=== PATIENT | male | born 1935 | race Two or more races ===

== ENCOUNTER 2019-01-23 13:45 | Inpatient (IN) | payer MEDICARE, MEDICAID ==
[~2019-01-23] VITALS: Ht 160 cm; Wt 56.7 kg
[~2019-01-23 13:45] MED LIST: ACETAMINOPHEN325 M1 GT; ALBUTEROL SULFAT2 MG PO; ASCORBIC ACID500 MG GT; BACLOFEN10 MG GT; BISACODYL5 MG GT; CHOLECALCIFEROL1 G1 GT; DOCUSATE SODIU250 MG GT; DOCUSATE SODIU250 MG ORAL; FERROUS SU220 MG/53 GT; GUAIFENESIN-CO118 M1 ORAL; HUMULIN R100 UNIT/1 SUBQ; HYDROGEL3000 GM MC; IPRATROPIU0.2 MG/1 M HHN; LIDODERM700 M1 TOPIC; MINERAL OIL EN133 ML RC; MULTIVITAMINS1 EAC8 ORAL; NORCO 5-325 TA1 EACH GT; SENNA8.6 M2 GT
[2019-01-23 13:52] VITALS: BP 121/54
--- NOTE | 2019-01-23 13:52 | NUR ---
ED Nurse Note: PT SUSY RA [id number] [facility] DUE TO HYPOTENSION AND ALOC. PER EMS, THE FACILITY WERE ABOUT TO CHANGE THE STOMA, 8MG DILAUDID AND 8MG METHADONE WERE GIVEN. BP WENT DOWN TO 70/40 AND O2 SAT DECREASED TO 85 % AFTER MEDS. PT IS AWAKE BUT NON VERBAL AND UNRESPONSIVE, TRACH DEPENDENT. DR CHERY AND RT AT THE BED SIDE. VSS.
--- NOTE | 2019-01-23 13:56 | Emergency Room Report ---
History of Present Illness General Chief Complaint: Altered Level of Consciousness Source: Patient Present Illness HPI EMS was summoned for altered level of consciousness and hypotension. 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 He was hypotensive and they gave him a bolus of normal saline. His blood pressure came up but he still remained less responsive. An Accu-Chek was normal. Patient is vent dependent via tracheostomy and has a gastrostomy tube. The patient was hospitalized here in November. His discharge diagnoses: Severe sepsis with acute organ dysfunction ( due to pneumonia and UTI) Proteus bacteremia likely due to UTI Acute respiratory failure with hypoxemia NSTEMI initial episode of care - likely due to demand ischemia secondary to sepsis Chronic respiratory failure with tracheostomy status Healthcare associated pneumonia Proteus UTI Dehydration Severe anemia Acute tubular necrosis Functional quadriplegia Dysphagia , feeding by G-tube Severe protein calorie malnutrition Multiple decubitus ulcers, present on admission Allergies: Coded Allergies: NSAIDS (NON-STEROIDAL ANTI-INFLAMMA (Unverified Allergy, Unknown, 11/27/18) PIPERACILLIN (Unverified Allergy, Unknown, 11/27/18) TAZOBACTAM (Unverified Allergy, Unknown, 11/27/18) Uncoded Allergies: NSAID (Allergy, Unknown, 09/14/18) Patient History Limited by: medical condition Past Medical History: see triage record, old chart reviewed Past Surgical History: other - Tracheostomy and G-tube Social History Narrative SNF Reviewed Nursing Documentation: PMH: Agreed; PSxH: Agreed Nursing Documentation-PM Past Medical History: No History, Except For Hx Cardiac Problems: Yes - Hypoxia Hx Cancer: No Hx Fatigue: Yes Review of Systems All Other Systems: limited Physical Exam Vital Signs Date Time Temp Pulse Resp B/P (MAP) Pulse Ox O2 Delivery O2 Flow Rate FiO2 01/23/19 13:42 98.8 73 19 70/45 (53) 95 Ambu-Bag Sp02 EP Interpretation: reviewed, abnormal - interpreted as low by me General Appearance: other - unresponsive, Chronically Ill Head: normocephalic, atraumatic Eyes: bilateral eye other - dry, eyes closed ENT: dry mucus membranes Neck: tracheotomy Respiratory: lungs clear, normal breath sounds, decreased breath sounds Cardiovascular #1: regular rate, rhythm Cardiovascular #2: 2+ radial (R) Gastrointestinal: other - g tube, decreased bowel sounds, scaphoid Genitourinary: other - diaper Musculoskeletal: other - contractures, atrophy Neurologic: other - unresponsive to pain Psychiatric: other - unresponsive Skin: Decubitus/Ulcer - all dependent areas Medical Decision Making Diagnostic Impression: Primary Impression: Sepsis Qualified Codes: A41.9 - Sepsis, unspecified organism Additional Impressions: Pyuria Pleural effusion, left Left pulmonary infiltrate on CXR ER Course Patient presents with altered level of consciousness and hypotension after receiving Dilaudid. Differential includes narcotic overdose, sepsis, acute myocardial infarction, or light imbalance amongst others. Evaluation will be with EKG, chest x-ray and labs including blood cultures and lactate. The patient will receive fluid bolus and may require antibiotics. If he continues to be hypotensive we may need to start pressors. Before that consideration of Narcan. EKG NSR, no injury. BP better with fluid bolus. Patient dry. Still unresponsive. Awaiting labs and results for consideration for antibiotics. Sat 100% on 30%. 14:06 WBC elevated. Some pyuria. Based on previous cultures - resistant P. mirabilis starting on gent and vanco. Blood pressure improved. 14:[address] Carlos Butterfield - non-transferrable. 14:25 Admit to stepdown unit . Laboratory Tests Test 01/23/19 13:50 White Blood Count 23.0 K/UL (4.8-10.8) *H Red Blood Count 3.12 M/UL (4.70-6.10) L Hemoglobin 8.7 G/DL (14.2-18.0) L Hematocrit 28.6 % (42.0-52.0) L Mean Corpuscular Volume 92 FL (80-99) Mean Corpuscular Hemoglobin 28.0 PG (27.0-31.0) Mean Corpuscular Hemoglobin Concent 30.5 G/DL (32.0-36.0) L Red Cell Distribution Width 17.9 % (11.6-14.8) H Platelet Count 227 K/UL (150-450) Mean Platelet Volume 6.6 FL (6.5-10.1) Neutrophils (%) (Auto) % (45.0-75.0) Lymphocytes (%) (Auto) % (20.0-45.0) Monocytes (%) (Auto) % (1.0-10.0) Eosinophils (%) (Auto) % (0.0-3.0) Basophils (%) (Auto) % (0.0-2.0) Differential Total Cells Counted 100 Neutrophils % (Manual) 91 % (45-75) H Lymphocytes % (Manual) 2 % (20-45) L Monocytes % (Manual) 3 % (1-10) Eosinophils % (Manual) 0 % (0-3) Basophils % (Manual) 1 % (0-2) Band Neutrophils 3 % (0-8) Platelet Estimate Adequate Platelet Morphology Clumped Platelets Occasional Hypochromasia 1+ Anisocytosis 1+ Prothrombin Time 11.7 SEC (9.30-11.50) H Prothrombin Time INR 1.1 (0.9-1.1) PTT 32 SEC (23-33) Urine Color Pale yellow Urine Appearance Slightly cloudy Urine pH 7 (4.5-8.0) Urine Specific [place] 1.005 (1.005-1.035) Urine Protein 3+ (NEGATIVE) H Urine Glucose (UA) Negative (NEGATIVE) Urine Ketones Negative (NEGATIVE) Urine Blood 3+ (NEGATIVE) H Urine Nitrite Negative (NEGATIVE) Urine Bilirubin Negative (NEGATIVE) Urine Urobilinogen Normal MG/DL (0.0-1.0) Urine Leukocyte Esterase 3+ (NEGATIVE) H Urine RBC 2-4 /HPF (0 - 0) H Urine WBC 5-10 /HPF (0 - 0) H Urine Squamous Epithelial Cells Occasional /LPF Urine Bacteria Moderate /HPF (NONE) H Urine Yeast Few /HPF (NONE) H Sodium Level 137 MMOL/L (136-145) Potassium Level 4.5 MMOL/L (3.5-5.1) Chloride Level 100 MMOL/L (98-107) Carbon Dioxide Level 34 MMOL/L (21-32) H Anion Gap 3 mmol/L (5-15) L Blood Urea Nitrogen 60 mg/dL (7-18) H Creatinine 1.1 MG/DL (0.55-1.30) Estimate Glomerular Filtration Rate mL/min (>60) Glucose Level 124 MG/DL (74-106) H Lactic Acid Level 1.80 mmol/L (0.4-2.0) Calcium Level 8.8 MG/DL (8.5-10.1) Magnesium Level 2.1 MG/DL (1.8-2.4) Total Bilirubin 0.3 MG/DL (0.2-1.0) Aspartate Amino Transferase (AST) 19 U/L (15-37) Alanine Aminotransferase (ALT) 16 U/L (12-78) Alkaline Phosphatase 95 U/L (46-116) Total Creatine Kinase 32 U/L (26-308) Troponin I 0.029 ng/mL (0.000-0.056) Pro-B-Type Natriuretic Peptide 3183 pg/mL (0-125) H Total Protein 7.9 G/DL (6.4-8.2) Albumin 1.9 G/DL (3.4-5.0) L Globulin 6.0 g/dL Albumin/Globulin Ratio 0.3 (1.0-2.7) L Lipase 109 U/L (73-393) EKG Diagnostic Results Rate: normal Rhythm: NSR ST Segments: no acute changes - Nonspecific ST-T wave changes Rhythm Strip Diag. Results EP Interpretation: yes Rhythm: NSR, no PVC's, no ectopy Chest X-Ray Diagnostic Results Chest X-Ray Diagnostic Results : Chest X-Ray Ordered: Yes # of Views/Limited/Complete: 1 View Indication: Other EP Interpretation: Yes Interpretation: no pneumothorax, other - L infiltrate and effusion - prior x -ray with bilat effusions Impression: Other Electronically Signed by: Electronically signed by Dimitrios Avila MD Last Vital Signs Date Time Temp Pulse Resp B/P (MAP) Pulse Ox O2 Delivery O2 Flow Rate FiO2 01/24/19 00:42 62 17 30 01/24/19 00:00 Mechanical Ventilator 01/24/19 00:00 97.9 139/69 (92) 99 01/23/19 17:47 15.0 Status: improved Disposition: ADMITTED INPATIENT Condition: Critical Dimitrios Avila MD Jan 23, 2019 13:56
--- NOTE | 2019-01-23 14:05 | NUR ---
ED Nurse Note: COLLECTED BLOOD/URINE THEN SENT.
[2019-01-23 14:06] LABS: APPEARANCE,URINE SLIGHTLY CLOUDY; BILIRUBIN, URINE NEGATIVE (NEGATIVE); COLOR,URINE PALE YELLOW; GLUCOSE, URINE (UA) NEGATIVE (NEGATIVE); HEMATOCRIT 28.6 % (42.0-52.0); HEMOGLOBIN 8.7 G/DL (14.2-18.0); KETONES,URINE NEGATIVE (NEGATIVE); LEUKOCYTE ESTERASE ,URINE 3+ (NEGATIVE); MEAN CORPUSCULAR VOLUME 92 FL (80-99); NITRITE,URINE NEGATIVE (NEGATIVE); PH,URINE 7 (4.5-8.0); PLATELET COUNT 227 K/UL (150-450); PROTEIN,URINE 3+ (NEGATIVE); RED BLOOD COUNT 3.12 M/UL (4.70-6.10); RED CELL DISTRIBUTION WIDTH 17.9 % (11.6-14.8); UROBILINOGEN,URINE NORMAL MG/DL (0.0-1.0)
[2019-01-23 14:13] LABS: INR 1.1 (0.9-1.1)
[2019-01-23 14:15] LABS: ANION GAP 3 mmol/L (5-15); BLOOD UREA NITROGEN 60 mg/dL (7-18); CALCIUM 8.8 MG/DL (8.5-10.1); CARBON DIOXIDE 34 MMOL/L (21-32); CHLORIDE 100 MMOL/L (98-107); CREATININE 1.1 MG/DL (0.55-1.30); POTASSIUM 4.5 MMOL/L (3.5-5.1); SODIUM 137 MMOL/L (136-145)
[2019-01-23] MEDS ORDERED: AMIKACIN IV STA (14:16)
[2019-01-23] MEDS ORDERED: NS IV STA (14:16)
[2019-01-23] MEDS ORDERED: Amikacin 900 MG in NS 110 ML IV STA (14:20)
--- NOTE | 2019-01-23 14:23 | NUR ---
ED Nurse Note: NOTED WOUNDS ON RIGHT AND LEFT BUTTOCKS, RIGHT AND LEFT FOOT. PICTURES ARE UPLOADED.
[2019-01-23 14:28] LABS: ALANINE AMINOTRANSFERASE 16 U/L (12-78); ALBUMIN 1.9 G/DL (3.4-5.0); ALBUMIN/GLOBULIN RATIO 0.3 (1.0-2.7); ALKALINE PHOSPHATASE 95 U/L (46-116); ASPARTATE AMINO TRANSFERASE 19 U/L (15-37); BILIRUBIN,TOTAL 0.3 MG/DL (0.2-1.0); CREATINE KINASE 32 U/L (26-308)
[2019-01-23] MEDS ORDERED: Vancomycin 1 GM in NS 275 ML IVPB ONE (14:30)
--- NOTE | 2019-01-23 15:32 | NUR ---
HAND-OFF: Report given to SRIKANTH MURILLO RN.
--- NOTE | 2019-01-23 15:45 | NUR ---
ED Nurse Note: Gave report to TEDDY Jarquin
--- NOTE | 2019-01-23 16:00 | NUR ---
TRANSFER TO FLOOR: Patient transferred to [facility] as ordered, per . Report given to TEDDY Jarquin
[2019-01-23] MEDS ORDERED: Morphine Sulfate 4mg/ml Inj (IV USE ONLY) IVP PRN (16:15)
[2019-01-23] MEDS ORDERED: Miralax 17gm pkt ORAL PRN (16:15)
[2019-01-23] MEDS ORDERED: LORazepam Inj 2mg/ml 1ml IV PRN (16:15)
[2019-01-23] MEDS ORDERED: Albuterol/Ipratropium 3ml neb HHN PRN (16:15)
--- NOTE | 2019-01-23 16:30 | NUR ---
NURSE NOTES: Received pt ,a new admission from ED,brought to SDU per jody ,lethargic ,in no acute resp distress,with trachc tube to vent settings,AC14,TV 450,Fio2 40%Peep 5,,GT clamped,with Cunha cath draining yellow urine,IV sites x2 LFA and RW ,skin warm and very dry,with multiple pressure ulcers and open wounds ,photos taken,measured, and uploaded .Report given by Nabil YEH RN.Pt's at bedside.
[2019-01-23 17:00] VITALS: BP 142/60
--- NOTE | 2019-01-23 19:20 | NUR ---
HAND-OFF: Report given to Shara Edwards RN.
--- NOTE | 2019-01-23 19:20 | NUR ---
NURSE NOTES: Received patient from MARIAN WEBBER RN. Will continue plan of care.
--- NOTE | 2019-01-23 19:22 | NUR ---
RESPIRATORY NOTE: PT. RECEIVED STABLE ON ER VENT SETTINGS OF AC/VC: 14, 450, 30%, +5. PT PLACED ON NEW VENT SETTINGS ORDERED BY DR. JEREZ. CURRENT SETTINGS ARE AC/VC: 16, 600, 30%, +5. ALARMS ARE ON AND AUDIBLE. PT TOLERATING NEW VENT SETTINGS WELL. NO S/S OF RESPIRATORY DISTRESS NOTED AT THIS TIME. EXTERNAL ALARM CABLE IN PLACE AND OERATIONAL. WILL CONTINUE TO MONITOR PT.
[2019-01-23 20:00] VITALS: BP 138/77
[2019-01-23] MEDS: Heparin 5000 units/ml inj SUBQ SCH (20:43)
[2019-01-24] VITALS (8 sets, daily range): BP systolic 124–163; BP diastolic 58–82
[2019-01-24] MEDS: Vancomycin 750mg/NS 275ml IVPB SCH ×4 (01:00→16:14)
[2019-01-24 04:54] LABS: HEMOGLOBIN 7.2 G/DL (14.2-18.0); MEAN CORPUSCULAR VOLUME 91 FL (80-99); PLATELET COUNT 124 K/UL (150-450); RED BLOOD COUNT 2.52 M/UL (4.70-6.10); RED CELL DISTRIBUTION WIDTH 17.7 % (11.6-14.8)
[2019-01-24 04:58] LABS: ALBUMIN 1.6 G/DL (3.4-5.0); ANION GAP 5 mmol/L (5-15); BLOOD UREA NITROGEN 44 mg/dL (7-18); CALCIUM 8.5 MG/DL (8.5-10.1); CARBON DIOXIDE 27 MMOL/L (21-32); CHLORIDE 104 MMOL/L (98-107); CREATININE 0.8 MG/DL (0.55-1.30); PHOSPHORUS 2.5 MG/DL (2.5-4.9); POTASSIUM 4.1 MMOL/L (3.5-5.1); SODIUM 136 MMOL/L (136-145)
--- NOTE | 2019-01-24 05:19 | NUR ---
RESPIRATORY NOTE: PT REMAINED STABLE ON CMV WITH CURRENT SETTINGS. PT WAS SXN'D PRN WITH NO ADVERSE REACTION. AIRWAY IS MIDLINE, SECURE AND PATENT. VENT CIRCUIT AND SX TUBING ARE SECURE AND OUT OF THE WAY. NO S/S OF RESPIRATORY DISTRESS NOTED AT THIS TIME.
--- NOTE | 2019-01-24 07:15 | NUR ---
HAND-OFF: Report given to Chyna Talavera RN.
--- NOTE | 2019-01-24 07:20 | NUR ---
NURSE NOTES: Report received from Daniel Smith RN.Pt asleep noted no resp distress,with trach tube to vent,new settings noted,AC 14,TV 600,Fio2 30%,Peep 5,GTF Jevity 1.2 at 30 ml/hr,no residual noted,Cunha cath draining yellow urine,IV sites x2 RW HL and LFA with IVF NS at 300 ml/hr ,skin warm and very dry,,with multilple pressure ulcers and open wounds to LE and posterior back.SR up x2 HOB elevated,bed lock in lowest position will continue with plans of care.
[2019-01-24] MEDS: Pantoprazole Inj IV SCH (08:57)
[2019-01-24] MEDS: Heparin 5000 units/ml inj SUBQ SCH ×2 (08:59→21:00)
--- NOTE | 2019-01-24 10:00 | NUR ---
NURSE NOTES: Seen by wound care nurse Rebecapt with mutiple pressure sores and open wounds,measured and drsg changed.
--- NOTE | 2019-01-24 11:00 | NUR ---
NURSE NOTES: Dr Woodall at bedside,informed re H/H 7.08/28,1 unit of PRBC ordered.
--- NOTE | 2019-01-24 11:07 | Pulmonolgy Critical Care Note ---
Critical Care - Asmt/Plan Problems: (1) Acute on chronic respiratory failure (2) Left pulmonary infiltrate on CXR (3) Severe anemia (4) Pleural effusion, left (5) At high risk for aspiration (6) funtional quadriplegia (7) Feeding by G-tube (8) Protein-calorie malnutrition, severe Respiratory: monitor respiratory rate, adjust FIO2, CXR Cardiac: continue pressors, continue to monitor HR/BP Renal: F/U I&O, keep IV fluid, check electrolytes Infectious Disease: check cultures, continue antibiotics Gastrointestinal: continue feedings/current rate Endocrine: monitor blood sugar Hematologic: transfuse if hgb<8.5 Neurologic: PRN Ativan, PRN Morphine, keep patient comfortable Time Spent (Minutes): 40 Notes Reviewed: cardio Discussed with: nurses, consultants, pillowcase makerapplications project manager - Objective Last 24 Hour Vital Signs Date Time Temp Pulse Resp B/P (MAP) Pulse Ox O2 Delivery O2 Flow Rate FiO2 01/24/19 10:47 58 18 30 01/24/19 09:28 65 17 30 01/24/19 08:01 98.2 55 20 142/61 (88) 98 01/24/19 08:00 54 01/24/19 08:00 30 01/24/19 08:00 Mechanical Ventilator 01/24/19 07:07 53 16 30 01/24/19 05:19 62 17 30 01/24/19 04:00 Mechanical Ventilator 01/24/19 04:00 97.9 61 18 139/74 (95) 100 01/24/19 04:00 35 01/24/19 03:49 61 01/24/19 03:08 57 17 30 01/24/19 00:42 62 17 30 01/24/19 00:00 Mechanical Ventilator 01/24/19 00:00 97.9 66 16 139/69 (92) 99 01/23/19 23:25 66 01/23/19 23:00 67 16 30 01/23/19 20:55 69 18 30 01/23/19 20:00 97.7 66 18 138/77 (97) 96 01/23/19 20:00 35 01/23/19 20:00 Mechanical Ventilator 01/23/19 19:24 65 01/23/19 19:22 64 15 30 01/23/19 17:47 Mechanical Ventilator 15.0 01/23/19 17:15 62 14 30 01/23/19 17:00 97.2 73 20 142/60 (87) 96 01/23/19 16:00 98.8 72 14 138/68 100 Mechanical Ventilator 40.0 30 01/23/19 15:25 57 14 30 01/23/19 14:09 66 14 30 01/23/19 14:05 66 14 100 Mechanical Ventilator 40.0 30 01/23/19 13:52 73 19 Mechanical Ventilator 30 01/23/19 13:52 98.8 68 17 121/54 100 Mechanical Ventilator 30 01/23/19 13:52 30 01/23/19 13:42 98.8 73 19 70/45 (53) 95 Ambu-Bag Status: awake Condition: critical HEENT: atraumatic Neck: full ROM Lungs: rales, rhonchi Heart: HR/BP stable Abdomen: soft, feeding tube Extremities: edema Decubiti: stage Micro: Microbiology Date/Time Source Procedure Growth Status 01/23/19 13:50 Urine,Clean Catch Urine Culture - Preliminary Gram Positive Cocci Resulted Critical Care - Subjective ROS Limited/Unobtainable: No Interval Events: 83 year old with hx of chronic respiratory failure, s/p trach/vent/PEG brought in from nursing with cc of hypoxemia and acute respiratory failure. Condition: critical FI02: 30 Vent Support Breath Rate: 16 Vent Support Mode: AC Vent Tidal Volume: 600 Sputum Amount: Moderate PEEP: 5.0 PIP: 32 Tube Feeding Amount: 30 I&O: Intake and Output 01/23/19 01/24/19 19:00 07:00 Intake Total 1900 ml 2800.000 ml Output Total 21 ml 1400 ml Balance 1879 ml 1400.000 ml Intake Oral 0 ml Free Water 180 ml IV Total 1900 ml 2420.000 ml Tube Feeding 200 ml Output Urine Total 20 ml 1400 ml Stool Total 1 ml # Voids 1 1 # Bowel Movements 1 1 CXR: LLL infiltrate/effusion Labs: Laboratory Tests Test 01/23/19 13:50 01/24/19 03:40 White Blood Count 23.0 K/UL (4.8-10.8) *H 10.0 K/UL (4.8-10.8) # Red Blood Count 3.12 M/UL (4.70-6.10) L 2.52 M/UL (4.70-6.10) L Hemoglobin 8.7 G/DL (14.2-18.0) L 7.2 G/DL (14.2-18.0) L Hematocrit 28.6 % (42.0-52.0) L 23.0 % (42.0-52.0) L Mean Corpuscular Volume 92 FL (80-99) 91 FL (80-99) Mean Corpuscular Hemoglobin 28.0 PG (27.0-31.0) 28.5 PG (27.0-31.0) Mean Corpuscular Hemoglobin Concent 30.5 G/DL (32.0-36.0) L 31.2 G/DL (32.0-36.0) L Red Cell Distribution Width 17.9 % (11.6-14.8) H 17.7 % (11.6-14.8) H Platelet Count 227 K/UL (150-450) 124 K/UL (150-450) L Mean Platelet Volume 6.6 FL (6.5-10.1) 7.2 FL (6.5-10.1) Neutrophils (%) (Auto) % (45.0-75.0) % (45.0-75.0) Lymphocytes (%) (Auto) % (20.0-45.0) % (20.0-45.0) Monocytes (%) (Auto) % (1.0-10.0) % (1.0-10.0) Eosinophils (%) (Auto) % (0.0-3.0) % (0.0-3.0) Basophils (%) (Auto) % (0.0-2.0) % (0.0-2.0) Differential Total Cells Counted 100 100 Neutrophils % (Manual) 91 % (45-75) H 80 % (45-75) H Lymphocytes % (Manual) 2 % (20-45) L 8 % (20-45) L Monocytes % (Manual) 3 % (1-10) 7 % (1-10) Eosinophils % (Manual) 0 % (0-3) 4 % (0-3) H Basophils % (Manual) 1 % (0-2) 0 % (0-2) Band Neutrophils 3 % (0-8) 1 % (0-8) Platelet Estimate Adequate Adequate Platelet Morphology See comment Clumped Platelets Occasional 3+ Hypochromasia 1+ 1+ Anisocytosis 1+ 1+ Prothrombin Time 11.7 SEC (9.30-11.50) H Prothromb Time International Ratio 1.1 (0.9-1.1) Activated Partial Thromboplast Time 32 SEC (23-33) Urine Color Pale yellow Urine Appearance Slightly cloudy Urine pH 7 (4.5-8.0) Urine Specific [place] 1.005 (1.005-1.035) Urine Protein 3+ (NEGATIVE) H Urine Glucose (UA) Negative (NEGATIVE) Urine Ketones Negative (NEGATIVE) Urine Blood 3+ (NEGATIVE) H Urine Nitrite Negative (NEGATIVE) Urine Bilirubin Negative (NEGATIVE) Urine Urobilinogen Normal MG/DL (0.0-1.0) Urine Leukocyte Esterase 3+ (NEGATIVE) H Urine RBC 2-4 /HPF (0 - 0) H Urine WBC 5-10 /HPF (0 - 0) H Urine Squamous Epithelial Cells Occasional /LPF Urine Bacteria Moderate /HPF (NONE) H Urine Yeast Few /HPF (NONE) H Sodium Level 137 MMOL/L (136-145) 136 MMOL/L (136-145) Potassium Level 4.5 MMOL/L (3.5-5.1) 4.1 MMOL/L (3.5-5.1) Chloride Level 100 MMOL/L (98-107) 104 MMOL/L (98-107) Carbon Dioxide Level 34 MMOL/L (21-32) H 27 MMOL/L (21-32) Anion Gap 3 mmol/L (5-15) L 5 mmol/L (5-15) Blood Urea Nitrogen 60 mg/dL (7-18) H 44 mg/dL (7-18) H Creatinine 1.1 MG/DL (0.55-1.30) 0.8 MG/DL (0.55-1.30) Estimat Glomerular Filtration Rate mL/min (>60) mL/min (>60) Glucose Level 124 MG/DL (74-106) H 88 MG/DL (74-106) Lactic Acid Level 1.80 mmol/L (0.4-2.0) Calcium Level 8.8 MG/DL (8.5-10.1) 8.5 MG/DL (8.5-10.1) Magnesium Level 2.1 MG/DL (1.8-2.4) Total Bilirubin 0.3 MG/DL (0.2-1.0) Aspartate Amino Transf (AST/SGOT) 19 U/L (15-37) Alanine Aminotransferase (ALT/SGPT) 16 U/L (12-78) Alkaline Phosphatase 95 U/L (46-116) Total Creatine Kinase 32 U/L (26-308) Troponin I 0.029 ng/mL (0.000-0.056) Pro-B-Type Natriuretic Peptide 3183 pg/mL (0-125) H Total Protein 7.9 G/DL (6.4-8.2) Albumin 1.9 G/DL (3.4-5.0) L 1.6 G/DL (3.4-5.0) L Globulin 6.0 g/dL Albumin/Globulin Ratio 0.3 (1.0-2.7) L Lipase 109 U/L (73-393) Phosphorus Level 2.5 MG/DL (2.5-4.9) Dennis Woodall MD Jan 24, 2019 11:07
[2019-01-24] MEDS ORDERED: Amikacin Rx to dose MISC PRN (11:30)
--- NOTE | 2019-01-24 11:52 | Diagnostic Imaging Report ---
Indication: Shortness of breath Technique: One view of the chest Comparison: 11/30/2018 Findings: Again demonstrated is pleural fluid, interstitial and airspace opacities in the left lung. There is also suggestion of volume loss with elevation left hemidiaphragm. There are prominent interstitial opacities in the right lung, with the right lung is overall better aerated than on the prior exam. The right pleural space appears grossly clear. Tracheostomy again demonstrated. Impression: Left lung infiltrates versus edema, left-sided pleural effusion, and volume loss. Appearance of this is similar to prior study of 11/22/2018 Right lung interstitial opacities, may reflect infiltrates or edema. No overall better aeration of the right lung compared to the previous study.
--- NOTE | 2019-01-24 12:00 | NUR ---
NURSE NOTES: Pt with fever T99.8 F,Pt for blood transfusion,blood not ready yet.
[2019-01-24 12:01] LABS: INR 1.2 (0.9-1.1)
[2019-01-24 12:06] LABS: LACTATE DEHYDROGENASE 127 U/L (81-234)
--- NOTE | 2019-01-24 12:19 | NUR ---
RD ASSESSMENT & RECOMMENDATIONS SEE CARE ACTIVITY FOR COMPLETE ASSESSMENT DAILY ESTIMATED NEEDS: Needs based on Underweight, critical care, wounds, 58.5kg 30-35 kcals/kg 5037-0023 total kcals 1.25-2 g protein/kg 73-117 g total protein 25-30 mL/kg 7689-0024 total fluid mLs NUTRITION DIAGNOSIS: 1) Increased kcal and protein needs r/t wound healing and underweight status as evidenced by pt w/ multiple advanced wounds per photos, pending eval, and generalized severe wasting @72% of [place] body Weight. 2) Swallowing difficulty r/t respiratory failure as evidenced by pt is trach/ vent dep and GT dependent. CURRENT TF: Jevity 1.2 @30 (meets <60% est needs) ENTERAL NUTRITION RECOMMENDATIONS-->> TF change to OSMOLITE 1.5 @57ml/hr x24 hrs + Prosource x1 to provide 1368ml, 2052 kcal, 86g + 11g pro, 1042ml free H2O - Rec TF change to Osmolite 1.5 as per TF CARDIOLOGY MANAGER. - Start @37ml/hr x6 hrs. Advance as tolerated 10ml/hr q4-6 hrs to goal. - Add Prosource x1 daily to better meet est pro needs - Flush per MD. HOB over 30 degrees. ADDITIONAL RECOMMENDATIONS: PER SNF: HT=72inches (current BMI of 24 appears inaccurate) WOUND CARE: add WIL BID + VIT C 250mg BID (f/up w/ MD jayshree) Check lytes daily, replete as needed Weekly calibrated bed scale wts - -
--- NOTE | 2019-01-24 12:24 | Consultation ---
History of Present Illness General Date patient seen: Jan 24, 2019 Chief Complaint: Altered Level of Consciousness Present Illness HPI 83 y/o M with hx of chronic respiratory failure trach/vent dependent, functional quadriplegia, malnutrition, multiple decubiti ulcers, PNA, ESBL UTI and bacteremia 11/2018, proteus, dysphagia s/p GT presented to ED on 01/23 with altered level o consciousness and hypotension Allergies: Coded Allergies: NSAIDS (NON-STEROIDAL ANTI-INFLAMMA (Unverified Allergy, Unknown, 11/27/18) PIPERACILLIN (Unverified Allergy, Unknown, 11/27/18) TAZOBACTAM (Unverified Allergy, Unknown, 11/27/18) Uncoded Allergies: NSAID (Allergy, Unknown, 09/14/18) Medication History Scheduled Albuterol Sulfate* (Albuterol Sulfate*), 2 MG PO QID, (Reported) Ascorbic Acid* (Ascorbic Acid*), 500 MG GT DAILY, (Reported) Baclofen* (Baclofen*), 5 MG GT THREE TIMES A DAY, (Reported) Bisacodyl* (Dulcolax*), 10 MG GT DAILY, (Reported) Docusate Sodium* (Docusate Sodium*), 250 MG ORAL TWICE A DAY, (Reported) Docusate Sodium* (Docusate Sodium*), 250 MG GT TWICE A DAY, (Reported) Multivitamin With Minerals (Multivitamins With Minerals*), 1 TAB ORAL DAILY, ( Reported) Scheduled PRN Acetaminophen* (Acetaminophen 325MG Tablet*), 650 MG GT Q4H PRN for Mild Pain ( Pain Scale 1-3), (Reported) Guaifenesin/Codeine Phos* (Robitussin Ac*), 1 TSP ORAL Q4H PRN for For Cough, ( Reported) Hydrocodone Bit/Acetaminophen 5-325* ([place] 5-325*), 1 TAB GT Q4H PRN for For Pain, (Reported) Ipratropium [place] 0.5MG/2.5ML (Ipratropium [place] 0.5MG/2.5ML), 0.5 MG HHN Q6H PRN for Shortness of Breath, (Reported) Miscellaneous Medications Cholecalciferol (Vitamin D3) (Cholecalciferol), 1 GM GT, (Reported) Ferrous Sulfate (Ferrous Sulfate), 220 MG GT, (Reported) Gel Base No.41 (Hydrogel), 3,000 GM MC, (Reported) Insulin Regular, Human (Humulin R), 0 SUBQ, (Reported) Lidocaine (Lidoderm), 1 PATCH TOPIC, (Reported) Mineral Oil (Mineral Oil Enema), 133 ML RC, (Reported) Sennosides (Senna), 8.6 MG GT, (Reported) Patient History Healthcare decision maker Nayla Brooks- Resuscitation status Full Code Advanced Directive on File No Patient History Narrative Pmhx: as above Shx: reviewed Fhx: non contributory Review of Systems All Other Systems: negative except mentioned in HPI Physical Exam Physical Exam Narrative General Appearance: other - unresponsive, Chronically Ill Head: normocephalic, atraumatic Eyes: bilateral eye other - dry, eyes closed ENT: dry mucus membranes Neck: tracheotomy Respiratory: lungs clear, normal breath sounds, decreased breath sounds Cardiovascular regular rate, rhythm Gastrointestinal: other - g tube, decreased bowel sounds, scaphoid Genitourinary: other - diaper Musculoskeletal: other - contractures, atrophy Neurologic: other - unresponsive to pain Psychiatric: other - unresponsive Skin: Decubitus/Ulcer - all dependent areas Last 24 Hour Vital Signs Date Time Temp Pulse Resp B/P (MAP) Pulse Ox O2 Delivery O2 Flow Rate FiO2 01/24/19 10:47 58 18 30 01/24/19 09:28 65 17 30 01/24/19 08:01 98.2 55 20 142/61 (88) 98 01/24/19 08:00 54 01/24/19 08:00 30 01/24/19 08:00 Mechanical Ventilator 01/24/19 07:07 53 16 30 01/24/19 05:19 62 17 30 01/24/19 04:00 Mechanical Ventilator 01/24/19 04:00 97.9 61 18 139/74 (95) 100 01/24/19 04:00 35 01/24/19 03:49 61 01/24/19 03:08 57 17 30 01/24/19 00:42 62 17 30 01/24/19 00:00 Mechanical Ventilator 01/24/19 00:00 97.9 66 16 139/69 (92) 99 01/23/19 23:25 66 01/23/19 23:00 67 16 30 01/23/19 20:55 69 18 30 01/23/19 20:00 97.7 66 18 138/77 (97) 96 01/23/19 20:00 35 01/23/19 20:00 Mechanical Ventilator 01/23/19 19:24 65 01/23/19 19:22 64 15 30 01/23/19 17:47 Mechanical Ventilator 15.0 01/23/19 17:15 62 14 30 01/23/19 17:00 97.2 73 20 142/60 (87) 96 01/23/19 16:00 98.8 72 14 138/68 100 Mechanical Ventilator 40.0 30 01/23/19 15:25 57 14 30 01/23/19 14:09 66 14 30 01/23/19 14:05 66 14 100 Mechanical Ventilator 40.0 30 01/23/19 13:52 73 19 Mechanical Ventilator 30 01/23/19 13:52 98.8 68 17 121/54 100 Mechanical Ventilator 30 01/23/19 13:52 30 01/23/19 13:42 98.8 73 19 70/45 (53) 95 Ambu-Bag Intake and Output 01/23/19 01/24/19 19:00 07:00 Intake Total 1900 ml 2800.000 ml Output Total 21 ml 1400 ml Balance 1879 ml 1400.000 ml Intake Oral 0 ml Free Water 180 ml IV Total 1900 ml 2420.000 ml Tube Feeding 200 ml Output Urine Total 20 ml 1400 ml Stool Total 1 ml # Voids 1 1 # Bowel Movements 1 1 Laboratory Tests Test 01/23/19 13:50 01/24/19 03:40 01/24/19 11:30 White Blood Count 23.0 K/UL (4.8-10.8) *H 10.0 K/UL (4.8-10.8) # Red Blood Count 3.12 M/UL (4.70-6.10) L 2.52 M/UL (4.70-6.10) L Hemoglobin 8.7 G/DL (14.2-18.0) L 7.2 G/DL (14.2-18.0) L Hematocrit 28.6 % (42.0-52.0) L 23.0 % (42.0-52.0) L Mean Corpuscular Volume 92 FL (80-99) 91 FL (80-99) Mean Corpuscular Hemoglobin 28.0 PG (27.0-31.0) 28.5 PG (27.0-31.0) Mean Corpuscular Hemoglobin Concent 30.5 G/DL (32.0-36.0) L 31.2 G/DL (32.0-36.0) L Red Cell Distribution Width 17.9 % (11.6-14.8) H 17.7 % (11.6-14.8) H Platelet Count 227 K/UL (150-450) 124 K/UL (150-450) L Mean Platelet Volume 6.6 FL (6.5-10.1) 7.2 FL (6.5-10.1) Neutrophils (%) (Auto) % (45.0-75.0) % (45.0-75.0) Lymphocytes (%) (Auto) % (20.0-45.0) % (20.0-45.0) Monocytes (%) (Auto) % (1.0-10.0) % (1.0-10.0) Eosinophils (%) (Auto) % (0.0-3.0) % (0.0-3.0) Basophils (%) (Auto) % (0.0-2.0) % (0.0-2.0) Differential Total Cells Counted 100 100 Neutrophils % (Manual) 91 % (45-75) H 80 % (45-75) H Lymphocytes % (Manual) 2 % (20-45) L 8 % (20-45) L Monocytes % (Manual) 3 % (1-10) 7 % (1-10) Eosinophils % (Manual) 0 % (0-3) 4 % (0-3) H Basophils % (Manual) 1 % (0-2) 0 % (0-2) Band Neutrophils 3 % (0-8) 1 % (0-8) Platelet Estimate Adequate Adequate Platelet Morphology See comment Clumped Platelets Occasional 3+ Hypochromasia 1+ 1+ Anisocytosis 1+ 1+ Prothrombin Time 11.7 SEC (9.30-11.50) H 12.2 SEC (9.30-11.50) H Prothromb Time International Ratio 1.1 (0.9-1.1) 1.2 (0.9-1.1) H Activated Partial Thromboplast Time 32 SEC (23-33) 37 SEC (23-33) H Urine Color Pale yellow Urine Appearance Slightly cloudy Urine pH 7 (4.5-8.0) Urine Specific [place] 1.005 (1.005-1.035) Urine Protein 3+ (NEGATIVE) H Urine Glucose (UA) Negative (NEGATIVE) Urine Ketones Negative (NEGATIVE) Urine Blood 3+ (NEGATIVE) H Urine Nitrite Negative (NEGATIVE) Urine Bilirubin Negative (NEGATIVE) Urine Urobilinogen Normal MG/DL (0.0-1.0) Urine Leukocyte Esterase 3+ (NEGATIVE) H Urine RBC 2-4 /HPF (0 - 0) H Urine WBC 5-10 /HPF (0 - 0) H Urine Squamous Epithelial Cells Occasional /LPF Urine Bacteria Moderate /HPF (NONE) H Urine Yeast Few /HPF (NONE) H Sodium Level 137 MMOL/L (136-145) 136 MMOL/L (136-145) Potassium Level 4.5 MMOL/L (3.5-5.1) 4.1 MMOL/L (3.5-5.1) Chloride Level 100 MMOL/L (98-107) 104 MMOL/L (98-107) Carbon Dioxide Level 34 MMOL/L (21-32) H 27 MMOL/L (21-32) Anion Gap 3 mmol/L (5-15) L 5 mmol/L (5-15) Blood Urea Nitrogen 60 mg/dL (7-18) H 44 mg/dL (7-18) H Creatinine 1.1 MG/DL (0.55-1.30) 0.8 MG/DL (0.55-1.30) Estimat Glomerular Filtration Rate mL/min (>60) mL/min (>60) Glucose Level 124 MG/DL (74-106) H 88 MG/DL (74-106) Lactic Acid Level 1.80 mmol/L (0.4-2.0) Calcium Level 8.8 MG/DL (8.5-10.1) 8.5 MG/DL (8.5-10.1) Magnesium Level 2.1 MG/DL (1.8-2.4) Total Bilirubin 0.3 MG/DL (0.2-1.0) Aspartate Amino Transf (AST/SGOT) 19 U/L (15-37) Alanine Aminotransferase (ALT/SGPT) 16 U/L (12-78) Alkaline Phosphatase 95 U/L (46-116) Total Creatine Kinase 32 U/L (26-308) Troponin I 0.029 ng/mL (0.000-0.056) Pro-B-Type Natriuretic Peptide 3183 pg/mL (0-125) H Total Protein 7.9 G/DL (6.4-8.2) Albumin 1.9 G/DL (3.4-5.0) L 1.6 G/DL (3.4-5.0) L Globulin 6.0 g/dL Albumin/Globulin Ratio 0.3 (1.0-2.7) L Lipase 109 U/L (73-393) Phosphorus Level 2.5 MG/DL (2.5-4.9) Erythrocyte Sedimentation Rate Pending Reticulocyte Count Pending Iron Level Pending Unsaturated Iron Binding Pending Lactate Dehydrogenase Pending Carcinoembryonic Antigen Pending Vitamin B12 Level Pending Folate Pending Microbiology Date/Time Source Procedure Growth Status 01/23/19 13:50 Urine,Clean Catch Urine Culture - Preliminary Gram Positive Cocci Resulted Height (Feet): 5 Height (Inches): 3.00 Weight (Pounds): 135 Medications Current Medications Medications (Trade) Dose Ordered Sig/Margarette Route PRN Reason Start Time Stop Time Status Last Admin Dose Admin Acetaminophen (Tylenol) 650 mg Q4H PRN ORAL FEVER 01/23/19 16:15 02/22/19 16:14 Albuterol/ Ipratropium (Albuterol/ Ipratropium) 3 ml Q4H PRN HHN Shortness of Breath 01/23/19 16:15 01/28/19 16:14 Amikacin Protocol (Amikacin pharmacy to dose) 1 ea DAILY PRN MISC Per rx protocol 01/24/19 11:30 02/23/19 11:29 Amikacin Sulfate 850 mg/Sodium Chloride 113.4 ml @ 226.8 mls/ hr Q36H IV 01/24/19 14:00 01/31/19 13:59 Dextrose (Dextrose 50%) 25 ml Q30M PRN IV Hypoglycemia 01/23/19 16:15 02/22/19 16:14 Dextrose (Dextrose 50%) 50 ml Q30M PRN IV Hypoglycemia 01/23/19 16:15 02/22/19 16:14 Heparin Sodium (Porcine) (Heparin 5000 units/ml) 5,000 units EVERY 12 HOURS SUBQ 01/23/19 21:00 02/22/19 20:59 01/24/19 08:59 Lorazepam (Ativan 2mg/ml 1ml) 2 mg Q2H PRN IV For Anxiety 01/23/19 16:15 01/30/19 16:14 Morphine Sulfate (Morphine Sulfate) 4 mg Q4H PRN IVP Severe Pain (Pain Scale 7-10) 01/23/19 16:15 01/30/19 16:14 Ondansetron HCl (Zofran) 4 mg Q6H PRN IVP Nausea & Vomiting 01/23/19 16:15 02/22/19 16:14 Pantoprazole (Protonix) 40 mg DAILY IV 01/24/19 09:00 02/23/19 08:59 01/24/19 08:57 Polyethylene Glycol (Miralax) 17 gm DAILYPRN PRN ORAL Constipation 01/23/19 16:15 02/22/19 16:14 Sodium Chloride 1,000 ml @ 300 mls/hr Q3H20M IV 01/23/19 14:00 02/22/19 13:59 01/24/19 09:15 Vancomycin HCl (Vanco rx to dose) 1 ea DAILY PRN MISC Per rx protocol 01/23/19 16:15 02/22/19 16:14 Vancomycin HCl 750 mg/Sodium Chloride 275 ml @ 183.333 mls/hr Q12H IVPB 01/24/19 01:00 01/29/19 00:59 01/24/19 01:00 Assessment/Plan Assessment/Plan: Abx: Amikacin 01/24- IV Vancomycin 01/23- Gentamycin x1 01/23 Assessment: Sepsis- likely 2ry to UTI- r.o PNA -u/a wbc 5-10, nit neg, leuk +3; ucx >100k GPC -CXR: Left lung infiltrates versus edema, left-sided pleural effusion, and volume loss. Appearance of this is similar to prior study of 11/22/2018. Right lung interstitial opacities, may reflect infiltrates or edema. No overall better aeration of the right lung compared to the previous study. -sp cx -Bcx x2 Afebrile Leukocytosis, SP hx of ESBL Proteus UTI and bacteremia 11/2018 chronic respiratory failure trach/vent dependent functional quadriplegia malnutrition multiple decubiti ulcers hx of PNA dysphagia s/p GT Zosyn allergy (received 1 dose of Ertapenem back in November 2018) Plan: -Continue empiric IV Vancomycin #2 -Switch Amikacin #1 to Meropenem pending cultures -f/u cx -Monitor CBC/CMP, temperatures -aspiration precautions -trach/GT care -wound care per hospital protocol Thank you for this consultation. Will continue to follow along with you. Discussed with RN and pharmacists. Lilly Dorantes M.D. Jan 24, 2019 12:24
[2019-01-24 12:48] LABS: % IRON SATURATION 24 % (15-50); IRON 19 ug/dL (50-175); TOTAL IRON BINDING CAPACITY 78 ug/dL (250-450)
--- NOTE | 2019-01-24 13:31 | Consultation ---
History of Present Illness General Date patient seen: Jan 24, 2019 Chief Complaint: Altered Level of Consciousness Present Illness HPI 83 year old male well known to me from prior hospitalizations presented from half-way with change in mental status and hypotension. Patient with history of multiple medical comorbidities and also prior wounds that receive care while in hospital. He is non verbal and vent dependant. on tube feeds. surgery called to evaluate and assist with care. patient seen, chart reviewed, patient examined Allergies: Coded Allergies: NSAIDS (NON-STEROIDAL ANTI-INFLAMMA (Unverified Allergy, Unknown, 11/27/18) PIPERACILLIN (Unverified Allergy, Unknown, 01/25/19) tolerates carbapenem TAZOBACTAM (Unverified Allergy, Unknown, 11/27/18) Uncoded Allergies: NSAID (Allergy, Unknown, 09/14/18) Medication History Scheduled Ascorbic Acid* (Ascorbic Acid*), 500 MG GT DAILY, (Reported) Baclofen* (Baclofen*), 10 MG GT TWICE A DAY, (Reported) Balsam [place] Oil (Venelex Ointment), 60 GM TP DAILY, (Reported) Bisacodyl* (Dulcolax*), 10 MG GT DAILY, (Reported) Cranberry Extract (Cranberry), 425 MG GT DAILY, (Reported) Docusate Sodium* (Docusate Sodium*), 250 MG GT TWICE A DAY, (Reported) Methadone Hcl* (Methadone*), 2.5 MG GT DAILY, (Reported) Mirtazapine* (Remeron*), 7.5 MG GT BEDTIME, (Reported) Multivitamin With Minerals (Multivitamins With Minerals*), 1 TAB ORAL DAILY, ( Reported) Scheduled PRN Albuterol Sulfate* (Albuterol Sulfate Hhn*), 3 ML INH Q4H PRN for Shortness of Breath, (Reported) Hydromorphone Hcl (Hydromorphone Hcl), 8 MG ORAL EVERY 4 HOURS PRN for Moderate Pain (Pain Scale 4-6), (Reported) Miscellaneous Medications Insulin Regular, Human (Humulin R), 0 SUBQ, (Reported) Mineral Oil (Mineral Oil Enema), 133 ML RC, (Reported) Petrolatum,White/Lanolin (Vitamin A & D Ointment), 113 GM TP, (Reported) Sennosides (Senna), 8.6 MG GT, (Reported) [Calazime], TOPIC, (Reported) [Santyl], TOPIC, (Reported) Discontinued Medications Acetaminophen* (Acetaminophen 325MG Tablet*), 650 MG GT Q4H PRN for Mild Pain ( Pain Scale 1-3), (Reported) Discontinued Reason: Therapy completed Albuterol Sulfate* (Albuterol Sulfate*), 2 MG PO QID, (Reported) Discontinued Reason: Prescription changed Cholecalciferol (Vitamin D3) (Cholecalciferol), 1 GM GT, (Reported) Discontinued Reason: Therapy completed Ferrous Sulfate (Ferrous Sulfate), 220 MG GT, (Reported) Discontinued Reason: Therapy completed Gel Base No.41 (Hydrogel), 3,000 GM MC, (Reported) Discontinued Reason: Therapy completed Guaifenesin/Codeine Phos* (Robitussin Ac*), 1 TSP ORAL Q4H PRN for For Cough, ( Reported) Discontinued Reason: Therapy completed Hydrocodone Bit/Acetaminophen 5-325* ([place] 5-325*), 1 TAB GT Q4H PRN for For Pain, (Reported) Discontinued Reason: Therapy completed Ipratropium Lane 0.5MG/2.5ML (Ipratropium Lane 0.5MG/2.5ML), 0.5 MG HHN Q6H PRN for Shortness of Breath, (Reported) Discontinued Reason: Therapy completed Lidocaine (Lidoderm), 1 PATCH TOPIC, (Reported) Discontinued Reason: Therapy completed Patient History Limited by: medical condition History Provided By: Medical Record, PMD Healthcare decision maker Nayla Guntercon- Resuscitation status Full Code Advanced Directive on File No Past Medical/Surgical History Past Medical/Surgical History: (1) funtional quadriplegia (2) Sepsis (3) Chronic respiratory failure (4) Pneumonia (5) Vegetative endocarditis (6) Acute on chronic respiratory failure (7) Feeding by G-tube (8) Protein-calorie malnutrition, severe (9) At high risk for aspiration (10) ATN (acute tubular necrosis) (11) Severe anemia (12) Encephalopathy acute (13) Pyuria (14) Left pulmonary infiltrate on CXR (15) Pleural effusion, left Review of Systems ROS Narrative can not obtain given medical condition Physical Exam General Appearance: no apparent distress Lines, tubes and drains: trach HEENT: mucous membranes moist Neck: trach Respiratory/Chest: on vent Cardiovascular/Chest: normal rate Abdomen: soft, no organomegaly, no mass, feeding tube Extremities: other Skin Exam: other Neurologic: other Last 24 Hour Vital Signs Date Time Temp Pulse Resp B/P (MAP) Pulse Ox O2 Delivery O2 Flow Rate FiO2 01/24/19 12:46 66 18 30 01/24/19 10:47 58 18 30 01/24/19 09:28 65 17 30 01/24/19 08:01 98.2 55 20 142/61 (88) 98 01/24/19 08:00 54 01/24/19 08:00 30 01/24/19 08:00 Mechanical Ventilator 01/24/19 07:07 53 16 30 01/24/19 05:19 62 17 30 01/24/19 04:00 Mechanical Ventilator 01/24/19 04:00 97.9 61 18 139/74 (95) 100 01/24/19 04:00 35 01/24/19 03:49 61 01/24/19 03:08 57 17 30 01/24/19 00:42 62 17 30 01/24/19 00:00 Mechanical Ventilator 01/24/19 00:00 97.9 66 16 139/69 (92) 99 01/23/19 23:25 66 01/23/19 23:00 67 16 30 01/23/19 20:55 69 18 30 01/23/19 20:00 97.7 66 18 138/77 (97) 96 01/23/19 20:00 35 01/23/19 20:00 Mechanical Ventilator 01/23/19 19:24 65 01/23/19 19:22 64 15 30 01/23/19 17:47 Mechanical Ventilator 15.0 01/23/19 17:15 62 14 30 01/23/19 17:00 97.2 73 20 142/60 (87) 96 01/23/19 16:00 98.8 72 14 138/68 100 Mechanical Ventilator 40.0 30 01/23/19 15:25 57 14 30 01/23/19 14:09 66 14 30 01/23/19 14:05 66 14 100 Mechanical Ventilator 40.0 30 01/23/19 13:52 73 19 Mechanical Ventilator 30 01/23/19 13:52 98.8 68 17 121/54 100 Mechanical Ventilator 30 01/23/19 13:52 30 01/23/19 13:42 98.8 73 19 70/45 (53) 95 Ambu-Bag Intake and Output 01/23/19 01/24/19 19:00 07:00 Intake Total 1900 ml 2800.000 ml Output Total 21 ml 1400 ml Balance 1879 ml 1400.000 ml Intake Oral 0 ml Free Water 180 ml IV Total 1900 ml 2420.000 ml Tube Feeding 200 ml Output Urine Total 20 ml 1400 ml Stool Total 1 ml # Voids 1 1 # Bowel Movements 1 1 Laboratory Tests Test 01/23/19 13:50 01/24/19 03:40 01/24/19 11:30 White Blood Count 23.0 K/UL (4.8-10.8) *H 10.0 K/UL (4.8-10.8) # Red Blood Count 3.12 M/UL (4.70-6.10) L 2.52 M/UL (4.70-6.10) L Hemoglobin 8.7 G/DL (14.2-18.0) L 7.2 G/DL (14.2-18.0) L Hematocrit 28.6 % (42.0-52.0) L 23.0 % (42.0-52.0) L Mean Corpuscular Volume 92 FL (80-99) 91 FL (80-99) Mean Corpuscular Hemoglobin 28.0 PG (27.0-31.0) 28.5 PG (27.0-31.0) Mean Corpuscular Hemoglobin Concent 30.5 G/DL (32.0-36.0) L 31.2 G/DL (32.0-36.0) L Red Cell Distribution Width 17.9 % (11.6-14.8) H 17.7 % (11.6-14.8) H Platelet Count 227 K/UL (150-450) 124 K/UL (150-450) L Mean Platelet Volume 6.6 FL (6.5-10.1) 7.2 FL (6.5-10.1) Neutrophils (%) (Auto) % (45.0-75.0) % (45.0-75.0) Lymphocytes (%) (Auto) % (20.0-45.0) % (20.0-45.0) Monocytes (%) (Auto) % (1.0-10.0) % (1.0-10.0) Eosinophils (%) (Auto) % (0.0-3.0) % (0.0-3.0) Basophils (%) (Auto) % (0.0-2.0) % (0.0-2.0) Differential Total Cells Counted 100 100 Neutrophils % (Manual) 91 % (45-75) H 80 % (45-75) H Lymphocytes % (Manual) 2 % (20-45) L 8 % (20-45) L Monocytes % (Manual) 3 % (1-10) 7 % (1-10) Eosinophils % (Manual) 0 % (0-3) 4 % (0-3) H Basophils % (Manual) 1 % (0-2) 0 % (0-2) Band Neutrophils 3 % (0-8) 1 % (0-8) Platelet Estimate Adequate Adequate Platelet Morphology See comment Clumped Platelets Occasional 3+ Hypochromasia 1+ 1+ Anisocytosis 1+ 1+ Prothrombin Time 11.7 SEC (9.30-11.50) H 12.2 SEC (9.30-11.50) H Prothromb Time International Ratio 1.1 (0.9-1.1) 1.2 (0.9-1.1) H Activated Partial Thromboplast Time 32 SEC (23-33) 37 SEC (23-33) H Urine Color Pale yellow Urine Appearance Slightly cloudy Urine pH 7 (4.5-8.0) Urine Specific [place] 1.005 (1.005-1.035) Urine Protein 3+ (NEGATIVE) H Urine Glucose (UA) Negative (NEGATIVE) Urine Ketones Negative (NEGATIVE) Urine Blood 3+ (NEGATIVE) H Urine Nitrite Negative (NEGATIVE) Urine Bilirubin Negative (NEGATIVE) Urine Urobilinogen Normal MG/DL (0.0-1.0) Urine Leukocyte Esterase 3+ (NEGATIVE) H Urine RBC 2-4 /HPF (0 - 0) H Urine WBC 5-10 /HPF (0 - 0) H Urine Squamous Epithelial Cells Occasional /LPF Urine Bacteria Moderate /HPF (NONE) H Urine Yeast Few /HPF (NONE) H Sodium Level 137 MMOL/L (136-145) 136 MMOL/L (136-145) Potassium Level 4.5 MMOL/L (3.5-5.1) 4.1 MMOL/L (3.5-5.1) Chloride Level 100 MMOL/L (98-107) 104 MMOL/L (98-107) Carbon Dioxide Level 34 MMOL/L (21-32) H 27 MMOL/L (21-32) Anion Gap 3 mmol/L (5-15) L 5 mmol/L (5-15) Blood Urea Nitrogen 60 mg/dL (7-18) H 44 mg/dL (7-18) H Creatinine 1.1 MG/DL (0.55-1.30) 0.8 MG/DL (0.55-1.30) Estimat Glomerular Filtration Rate mL/min (>60) mL/min (>60) Glucose Level 124 MG/DL (74-106) H 88 MG/DL (74-106) Lactic Acid Level 1.80 mmol/L (0.4-2.0) Calcium Level 8.8 MG/DL (8.5-10.1) 8.5 MG/DL (8.5-10.1) Magnesium Level 2.1 MG/DL (1.8-2.4) Total Bilirubin 0.3 MG/DL (0.2-1.0) Aspartate Amino Transf (AST/SGOT) 19 U/L (15-37) Alanine Aminotransferase (ALT/SGPT) 16 U/L (12-78) Alkaline Phosphatase 95 U/L (46-116) Total Creatine Kinase 32 U/L (26-308) Troponin I 0.029 ng/mL (0.000-0.056) Pro-B-Type Natriuretic Peptide 3183 pg/mL (0-125) H Total Protein 7.9 G/DL (6.4-8.2) Albumin 1.9 G/DL (3.4-5.0) L 1.6 G/DL (3.4-5.0) L Globulin 6.0 g/dL Albumin/Globulin Ratio 0.3 (1.0-2.7) L Lipase 109 U/L (73-393) Phosphorus Level 2.5 MG/DL (2.5-4.9) Erythrocyte Sedimentation Rate 141 MM/HR (0-20) H Reticulocyte Count Pending Iron Level 19 ug/dL (50-175) L Total Iron Binding Capacity 78 ug/dL (250-450) L Percent Iron Saturation 24 % (15-50) Unsaturated Iron Binding 59 ug/dL (112-346) L Lactate Dehydrogenase 127 U/L (81-234) Carcinoembryonic Antigen Pending Vitamin B12 Level 1209 PG/ML (193-986) H Folate 64.6 NG/ML (8.6-58.9) H Microbiology Date/Time Source Procedure Growth Status 01/23/19 13:50 Urine,Clean Catch Urine Culture - Preliminary Gram Positive Cocci Resulted Height (Feet): 5 Height (Inches): 3.00 Weight (Pounds): 135 Medications Current Medications Medications (Trade) Dose Ordered Sig/Margarette Route PRN Reason Start Time Stop Time Status Last Admin Dose Admin Acetaminophen (Tylenol) 650 mg Q4H PRN ORAL FEVER 01/23/19 16:15 02/22/19 16:14 Albuterol/ Ipratropium (Albuterol/ Ipratropium) 3 ml Q4H PRN HHN Shortness of Breath 01/23/19 16:15 01/28/19 16:14 Amikacin Protocol (Amikacin pharmacy to dose) 1 ea DAILY PRN MISC Per rx protocol 01/24/19 11:30 02/23/19 11:29 Amikacin Sulfate 850 mg/Sodium Chloride 113.4 ml @ 226.8 mls/ hr Q36H IV 01/24/19 14:00 01/31/19 13:59 Dextrose (Dextrose 50%) 25 ml Q30M PRN IV Hypoglycemia 01/23/19 16:15 02/22/19 16:14 Dextrose (Dextrose 50%) 50 ml Q30M PRN IV Hypoglycemia 01/23/19 16:15 02/22/19 16:14 Heparin Sodium (Porcine) (Heparin 5000 units/ml) 5,000 units EVERY 12 HOURS SUBQ 01/23/19 21:00 02/22/19 20:59 01/24/19 08:59 Lorazepam (Ativan 2mg/ml 1ml) 2 mg Q2H PRN IV For Anxiety 01/23/19 16:15 01/30/19 16:14 Morphine Sulfate (Morphine Sulfate) 4 mg Q4H PRN IVP Severe Pain (Pain Scale 7-10) 01/23/19 16:15 01/30/19 16:14 Ondansetron HCl (Zofran) 4 mg Q6H PRN IVP Nausea & Vomiting 01/23/19 16:15 02/22/19 16:14 Pantoprazole (Protonix) 40 mg DAILY IV 01/24/19 09:00 02/23/19 08:59 01/24/19 08:57 Polyethylene Glycol (Miralax) 17 gm DAILYPRN PRN ORAL Constipation 01/23/19 16:15 02/22/19 16:14 Sodium Chloride 1,000 ml @ 300 mls/hr Q3H20M IV 01/23/19 14:00 02/22/19 13:59 01/24/19 09:15 Vancomycin HCl (Vanco rx to dose) 1 ea DAILY PRN MISC Per rx protocol 01/23/19 16:15 02/22/19 16:14 Vancomycin HCl 750 mg/Sodium Chloride 275 ml @ 183.333 mls/hr Q12H IVPB 01/24/19 01:00 01/29/19 00:59 01/24/19 01:00 Assessment/Plan Problem List: (1) funtional quadriplegia (2) Sepsis Assessment & Plan: leukocytosis hypotension tachycardia improving overall on IV abx trend labs ICD Codes: A41.9 - Sepsis, unspecified organism SNOMED: 89181738 Qualifiers: Qualified Codes: A41.9 - Sepsis, unspecified organism (3) Chronic respiratory failure ICD Codes: J96.10 - Chronic respiratory failure, unspecified whether with hypoxia or hypercapnia SNOMED: 14063768 (4) Pneumonia ICD Codes: J18.9 - Pneumonia, unspecified organism SNOMED: 531368402 (5) Acute on chronic respiratory failure ICD Codes: J96.20 - Acute and chronic respiratory failure, unspecified whether with hypoxia or hypercapnia SNOMED: 10997456 (6) Vegetative endocarditis ICD Codes: I33.0 - Acute and subacute infective endocarditis SNOMED: 39798637 (7) Feeding by G-tube ICD Codes: Z93.1 - Gastrostomy status SNOMED: 770078084, 103236688, 387399825 (8) Protein-calorie malnutrition, severe Assessment & Plan: DAILY ESTIMATED NEEDS: Needs based on Underweight, critical care, wounds, 58.5kg 30-35 kcals/kg 8382-7387 total kcals 1.25-2 g protein/kg 73-117 g total protein 25-30 mL/kg 4202-9485 total fluid mLs NUTRITION DIAGNOSIS: 1) Increased kcal and protein needs r/t wound healing and underweight status as evidenced by pt w/ multiple advanced wounds per photos, pending eval, and generalized severe wasting @72% of [place] body Weight. 2) Swallowing difficulty r/t respiratory failure as evidenced by pt is trach/ vent dep and GT dependent. CURRENT TF: Jevity 1.2 @30 (meets <60% est needs) ENTERAL NUTRITION RECOMMENDATIONS-->> TF change to OSMOLITE 1.5 @57ml/hr x24 hrs + Prosource x1 to provide 1368ml, 2052 kcal, 86g + 11g pro, 1042ml free H2O - Rec TF change to Osmolite 1.5 as per TF HOT BOX OPERATOR. - Start @37ml/hr x6 hrs. Advance as tolerated 10ml/hr q4-6 hrs to goal. - Add Prosource x1 daily to better meet est pro needs - Flush per MD. HOB over 30 degrees. ADDITIONAL RECOMMENDATIONS: PER SNF: HT=72inches (current BMI of 24 appears inaccurate) WOUND CARE: add WIL BID + VIT C 250mg BID (f/up w/ MD eval) Check lytes daily, replete as needed Weekly calibrated bed scale wts ICD Codes: E43 - Unspecified severe protein-calorie malnutrition SNOMED: 173602555, 816928471, 606720897 (9) At high risk for aspiration ICD Codes: Z91.89 - Other specified personal risk factors, not elsewhere classified SNOMED: 006832151 (10) ATN (acute tubular necrosis) ICD Codes: N17.0 - Acute kidney failure with tubular necrosis SNOMED: 75917694 (11) Severe anemia ICD Codes: D64.9 - Anemia, unspecified SNOMED: 273788592 (12) Encephalopathy acute ICD Codes: G93.40 - Encephalopathy, unspecified SNOMED: 78874993, 012074862 (13) Pyuria ICD Codes: N39.0 - Urinary tract infection, site not specified SNOMED: 4342414, 487954705 (14) Left pulmonary infiltrate on CXR ICD Codes: R91.8 - Other nonspecific abnormal finding of lung field SNOMED: 287185877, 241349842 (15) Pleural effusion, left ICD Codes: J90 - Pleural effusion, not elsewhere classified SNOMED: 21075156, 208510710 (16) Decubitus skin ulcer Assessment & Plan: Pt presented on admission with contractures and multiple pressure injuries.Skin integrity is dry and scaly. Pt noted to have scattered small partial thickness wounds to R and L scapulae. Pt also observed to be scratching at sites of wounds. (proximal)(L)1.2cm x (W)1.5cm. Base of wound moist and viable.Edges flat and adherent to base of wound erythema with scattered smaller scratch hunter periwound.(Distal)(L)1.7cm x(W)2cm Base of wound moist and viable. Edges flat and adherent to base of wound. Small amt sanguineous exudate noted. Erythema with scattered scratch hunter periwound. Non-blanchable erythema with shearing R buttocks. Surrounding Hyperpigmentation sacrum and l buttocks.Moisture intertrigo noted to R and L groin. Small amt sanguineous exudate noted from both R and L groin folds. Full Thickness wound noted to L hip Base of wound indurated ,maroon in colour with small opening centrally oozing small amt sanguineous exudate.Non- blanchable erythema without elevation in skin temp periwound. Inferior to L hip at L greater trochanteric Full thickness pressure injury with undermining. Base of wound cade with biofilm. Bone is palpable.Small amt non- odorous serous exudate noted.(L)2cm x (W)2.6cm x(D)0.5cm,undermining 2-3 by 4.6cm @3o'clock. Periwound without erythema or induration. Full thickness pressure injury with undermining R trochanter. Base of wound is 60% viable ,40% slough.Periwound without erythema or induration.Small amt non- odorous serous exudate noted.(L)2.3cm x (W)3.7cm x (D)0.2cm,undermining 9-3 by 2.1cm @2o'clock. Scattered small dry scabs noted to R and L Tibia. Full thickness pressure injury R Hallux. Base of wound 2% viable with 75% slough ,Macerated borders,Erythema without induration periwound.(L)1.1cm x (W)0.9cm. Multiple partial thickness wounds and dry scabs that are in close proximity noted to dorsal R foot. An area measuring (L)6.5cm x (W)5cm. Dry eschar noted to matrix of R st metatarsal. Full thickness wound dorso/flexor L foot .Base of wound 80% viable ,10% slough, 10% necrotic. Small amt sanguineous exudate noted. (L)1.2cm x (W)3cm x (D)0.2cm Full thickness pressure injury noted to lateral/plantar R foot. Base of wound moist with Biofilm. Macerated borders. Erythema without induration or elevation in skin temp periwound.(L)0.5cm x (W)1.5cm. Full thickness wound L hallux.Base of wound 90% viable with 10% slough. Borders of wound macerated and erythematous. Periwound fluctuant.Small amt sanguineous exudate noted.(L)1.2cm x (W)1.5cm. Full thickness wound L heel Base of wound 80% viable,20% slough noted. Bone is palpable. Edges adherent and flat. Small amt sanguineous exudate noted. Non- blanchable erythema with fluctuance noted periwound. (L)6.5cm x (W)4.6cm x (D) 0.5cm). Ulcers noted to L 2nd ,3rd and 4th metatarsals. L 2nd metatarsal ulcer-Base of wound 100% soft necrosis (L)0.5cm x (W)1cm. L 3rd metatarsal. Base of wound 90 % necrotic ,10% viability.(L)0.5cm x (W)0.3cm. L 4th metatarsal wound Moist with Biofilm (L)0.7cm x (W)0.5cm x (D)0.2cm. Full thickness wound lateral L foot. Base of wound moist and viable. Borders are macerated. Small amt sanguineous exudate noted.(L)0.8cm x (W)0.9cm x (D) 0.2cm. Tx.Plan: Cleanse wound R trochanter with saline. Apply Therahoney,Apply Cavilon Periwound. Cover with Optifoam drsg. Change every 3 days and prn. Cleanse wounds L hip and L trochanter with Saline. Apply Therahoney. Apply Cavilon periwound .Cover with Optifoam drsg every 3 days and prn. Cleanse wounds L scapula with Saline. Apply TheraHoney. Apply Cavilon periwound.Cover with Optifoam drsg every 3 days and prn. Apply Triad paste to sacrum ,groin and scrotum with each Incontinence care. Cleanse wounds R and L foot with Saline. Apply TheraHoney. Cover wounds with Abd pads and wrap both feet with Kerlix gauze every 3 days and prn. Air Fluidized mattress. Reposition at least every 2hours or as tolerated. Place pillow between knees. Off-load heels with pillow. ICD Codes: L89.90 - Pressure ulcer of unspecified site, unspecified stage SNOMED: 288329292 Stanislav Avelar Jan 24, 2019 13:31
[2019-01-24] MEDS ORDERED: Amikacin 850 MG in NS 110 ML IV SCH (14:00)
--- NOTE | 2019-01-24 15:16 | NUR ---
NURSE NOTES:WOUND CARE NOTES: Pt presented on admission with contractures and multiple pressure injuries.Skin integrity is dry and scaly. Pt noted to have scattered small partial thickness wounds to R and L scapulae. Pt also observed to be scratching at sites of wounds. (proximal)(L)1.2cm x (W)1.5cm. Base of wound moist and viable.Edges flat and adherent to base of wound erythema with scattered smaller scratch hunter periwound.(Distal)(L)1.7cm x(W)2cm Base of wound moist and viable. Edges flat and adherent to base of wound. Small amt sanguineous exudate noted. Erythema with scattered scratch hunter periwound. Non-blanchable erythema with shearing R buttocks. Surrounding Hyperpigmentation sacrum and l buttocks.Moisture intertrigo noted to R and L groin. Small amt sanguineous exudate noted from both R and L groin folds. Full Thickness wound noted to L hip Base of wound indurated ,maroon in colour with small opening centrally oozing small amt sanguineous exudate.Non-blanchable erythema without elevation in skin temp periwound. Inferior to L hip at L greater trochanteric Full thickness pressure injury with undermining. Base of wound cade with biofilm. Bone is palpable.Small amt non-odorous serous exudate noted.(L)2cm x (W)2.6cm x(D)0.5cm,undermining 2-3 by 4.6cm @3o'clock. Periwound without erythema or induration. Full thickness pressure injury with undermining R trochanter. Base of wound is 60% viable ,40% slough.Periwound without erythema or induration.Small amt non-odorous serous exudate noted.(L)2.3cm x (W)3.7cm x (D)0.2cm,undermining 9-3 by 2.1cm @2o'clock. Scattered small dry scabs noted to R and L Tibia. Full thickness pressure injury R Hallux. Base of wound 2% viable with 75% slough,Macerated borders,Erythema without induration periwound.(L)1.1cm x (W)0.9cm. Multiple partial thickness wounds and dry scabs that are in close proximity noted to dorsal R foot. An area measuring (L)6.5cm x (W)5cm. Dry eschar noted to matrix of R st metatarsal. Full thickness wound dorso/flexor L foot .Base of wound 80% viable ,10% slough,10% necrotic. Small amt sanguineous exudate noted. (L)1.2cm x (W)3cm x (D)0.2cm Full thickness pressure injury noted to lateral/plantar R foot. Base of wound moist with Biofilm. Macerated borders. Erythema without induration or elevation in skin temp periwound.(L)0.5cm x (W)1.5cm. Full thickness wound L hallux.Base of wound 90% viable with 10% slough. Borders of wound macerated and erythematous. Periwound fluctuant.Small amt sanguineous exudate noted.(L)1.2cm x (W)1.5cm. Full thickness wound L heel Base of wound 80% viable,20% slough noted. Bone is palpable. Edges adherent and flat. Small amt sanguineous exudate noted. Non-blanchable erythema with fluctuance noted periwound. (L)6.5cm x (W)4.6cm x (D)0.5cm). Ulcers noted to L 2nd ,3rd and 4th metatarsals. L 2nd metatarsal ulcer-Base of wound 100% soft necrosis (L)0.5cm x (W)1cm. L 3rd metatarsal. Base of wound 90% necrotic ,10% viability.(L)0.5cm x (W)0.3cm. L 4th metatarsal wound Moist with Biofilm (L)0.7cm x (W)0.5cm x (D)0.2cm. Full thickness wound lateral L foot. Base of wound moist and viable. Borders are macerated. Small amt sanguineous exudate noted.(L)0.8cm x (W)0.9cm x (D)0.2cm. Tx.Plan: Cleanse wound R trochanter with saline. Apply Therahoney,Apply Cavilon Periwound. Cover with Optifoam drsg. Change every 3 days and prn. Cleanse wounds L hip and L trochanter with Saline. Apply Therahoney. Apply Cavilon periwound .Cover with Optifoam drsg every 3 days and prn. Cleanse wounds L scapula with Saline. Apply TheraHoney. Apply Cavilon periwound.Cover with Optifoam drsg every 3 days and prn. Apply Triad paste to sacrum ,groin and scrotum with each Incontinence care. Cleanse wounds R and L foot with Saline. Apply TheraHoney. Cover wounds with Abd pads and wrap both feet with Kerlix gauze every 3 days and prn. Air Fluidized mattress. Reposition at least every 2hours or as tolerated. Place pillow between knees. Off-load heels with pillow.
--- NOTE | 2019-01-24 15:16 | NUR ---
SECURITIES COMPLIANCE EXAMINERAPPEALS NURSE 83 YO MALE BIBA FROM [facility] TO ER CC ALOC,DESATURATING PT IS TRACH/VENT DEPENDENT SI: RESP FAILURE TRACH/VENT DEPENDENT,SEPSIS T. 98.7 HR 73 RR 19 B/P 70/45 AC 16 TV 500 FIO2 305 PEEP 5 WBC 23.0 H/H 8.7/28.6 BNP 3183 ALB 1.9 BUN 60 CXR= LEFT LUNG INFILTRATES VS EDEMA. LEFT PLEURAL EFFUSION. RIGHT LUNG INTERSTITIAL OPACITIES IS: IV BOLUS NS X 3 LITERS VANCO IV GENTAMICIN IV AMIKACIN IV ADMITTED TO STEP DOWN UNIT STEP DOWN STATUS DCP- RETURN TO [place]
--- NOTE | 2019-01-24 15:21 | NUR ---
INSIDE SALES PROFESSIONAL NOTES SPOKE WITH SCOTTIE FROM [facility], TELEPHONE REVIEW GIVEN.WILL FOLLOW UP DAILY. SCOTTIE REQUESTING GI ON THE CASE DUE TO THE DROP IN H/H. AWARE.WILL CONTINUE TO MONITOR. SCOTTIE [phone] (P) [phone] (F)
[2019-01-24] MEDS: Meropenem 1 GM in NS 55 ML IVPB SCH (16:31)
[2019-01-24] MEDS: Ascorbic Acid 500mg tab ORAL SCH (17:38)
--- NOTE | 2019-01-24 18:00 | NUR ---
NURSE NOTES: pt resting quietly in bed asleep at bedside,updated re pt's status.
--- NOTE | 2019-01-24 19:05 | NUR ---
HAND-OFF: Report given to Homer Linares RN.
--- NOTE | 2019-01-24 19:11 | History & Physical ---
History and Physical History & Physicial Dictated for Int Med-DR Wolfe no. [id number]. Bunny Morocho MD Jan 24, 2019 19:11
--- NOTE | 2019-01-24 19:15 | NUR ---
NURSE NOTES: Received patient from Milka Grady RN. Patient is obtunded and receiving oxygen via trach to vent: Portex 8, AC 16, TV 600, FIO2 30%, PEEP 5. G-tube is patent and intact receiving Gevity 1.2 at 30cc/hr. Cunha catheter is patent and draining. IV site is Right wrist 18g and left forearm 18g, both patent and asymptomatic. Bed is locked, placed in lowest position, side rails up x3, bed alarm on. Will continue to monitor.
[2019-01-24] MEDS ORDERED: VENELEX OINTMEN60 GM TP (19:29)
[2019-01-24] MEDS ORDERED: CALAZIME TOPIC (19:29)
[2019-01-24] MEDS ORDERED: HYDROMORPHONE HC8 MG ORAL (19:29)
[2019-01-24] MEDS ORDERED: VITAMIN A & D113 GM TP (19:29)
[2019-01-24] MEDS ORDERED: MIRTAZAPINE15 MG GT (19:29)
[2019-01-24] MEDS ORDERED: METHADONE HCL5 MG GT (19:29)
[2019-01-24] MEDS ORDERED: Santyl TOPIC (19:29)
[2019-01-24] MEDS ORDERED: ALBUTEROL2.5 MG/3 M INH (19:35)
[2019-01-24] MEDS ORDERED: CRANBERRY425 MG GT (19:35)
--- NOTE | 2019-01-24 21:05 | Cardiology Report ---
APPROVED REPORT EKG Measurement Heart [id number] [id number] Normal sinus rhythm Normal ECG
--- NOTE | 2019-01-24 21:25 | NUR ---
NURSE NOTES: Patient's temperature is 99.0 degrees F, Blood Pressure 170/72, and HR 55. Unable to transfuse 1 Pack RBC, notified Dr. Woodall and awaiting orders.
[2019-01-24] MEDS ORDERED: HydrALAZINE 50mg tab ORAL PRN ×2 (22:15→23:00)
[2019-01-24] MEDS ORDERED: Vancomycin 1 GM in D5W 275 ML IV SCH (23:00)
--- NOTE | 2019-01-24 23:11 | NUR ---
NURSE NOTES: 1 Pack RBC transfusion started. Blood Pressure 149/72, Temperature 98.4, Heart Rate 64 bpm. Will reassess for adverse transfusion reactions and will continue to monitor.
--- NOTE | 2019-01-24 23:26 | NUR ---
NURSE NOTES: 15 minutes after blood transfusion started, patient is currently stable. Temperature 98.8, HR 60, BP 153/75. Will continue to monitor.
[2019-01-25] VITALS: BP 153/75
--- NOTE | 2019-01-25 | History and Physical Report ---
DATE OF ADMISSION: 01/23/2019 CHIEF COMPLAINT: The patient is an 83-year-old male, who presents with a chief complaint of altered mental status and hypotension. HISTORY OF PRESENT ILLNESS: The patient is a resident of [facility]. The patient is chronically vent dependent. According to staff at [facility], the patient was more obtunded than usual. The patient also was found to have very low blood pressure. The patient was transferred to [facility] for further evaluation. The patient is admitted for hypotension and altered mental status to rule out sepsis. PAST MEDICAL HISTORY: Significant for, 1. Ventilator dependence. 2. History of congestive heart failure. 3. Dysphagia. 4. Functional quadriplegia. 5. History of [id number] myocardial infarction during November of 2018 admission to [facility]. PAST SURGICAL HISTORY: Significant for, 1. Tracheostomy. 2. Gastrostomy tube placement. 3. Hernia repair. CURRENT MEDICATIONS: 1. Tylenol 650 mg per G-tube q.4 hours p.r.n. 2. Albuterol sulfate 2 mg p.o. q.i.d. 3. Vitamin C 500 mg p.o. daily. 4. Baclofen 10 mg per G-tube 3 times daily. 5. Vitamin D3 1 g per G-tube daily. 6. Iron sulfate 220 mg per G-tube daily. 7. [place] 5/325 mg one tablet per G-tu be q.4 p.r.n. 8. Regular insulin sliding scale. 9. DuoNeb nebulized q.4 hours p.r.n. 10. Multivitamin per G-tube daily. ALLERGIES: 1. Nonsteroidal anti-inflammatories. 2. Penicillin. 3. Tazobactam. SOCIAL HISTORY: The patient is . The patient denies tobacco or alcohol use. REVIEW OF SYSTEMS: Unable to assess secondary to the patient's mental status. PHYSICAL EXAMINATION: VITAL SIGNS: Temperature 98.8, respirations 19, pulse 73, and blood pressure 70/45. GENERAL: The patient is a well-developed and well-nourished male, who is intubated and sedated. HEENT: Eyes, pupils are equal and responsive to light and accommodation. Extraocular movements are intact. NECK: Supple without lymphadenopathy. CHEST: Lungs are clear to auscultation bilaterally without wheezes or rales. CARDIOVASCULAR: Regular rhythm and rate. S1 and S2 are normal without murmurs, rubs, or gallops. ABDOMEN: Soft, nontender, and nondistended. Positive bowel sounds. No evidence of hepatosplenomegaly. Currently, no rebound or guarding noted. EXTREMITIES: Negative for clubbing, cyanosis, or edema. RECTAL/GENITAL: Refused. NEUROLOGICAL: Unable to assess. LABORATORY STUDIES: WBC 23.0, hemoglobin 8.7, hematocrit 28.6, and platelets 227,000. Sodium 137, potassium 4.5, chloride 100, CO2 34, BUN , creatinine 1.1, and glucose 124. BNP elevated at 3183. Urinalysis showed 3+ blood, 3+ protein, and 3+ leukocyte esterase with 5 to 10 wbc's. Chest x-ray was reported as left lung infiltrates versus left pleural effusion and right lung interstitial opacities. ASSESSMENT: This is an 83-year-old male. 1. Altered mental status. 2. Probable sepsis. 3. Hypertension. 4. Leukocytosis. 5. Pneumonia. 6. Congestive heart failure. 7. Dysphagia. 8. Ventilator dependence. 9. Functional quadriplegia. 10. History of myocardial infarction. TREATMENT: 1. Altered mental status. This may be secondary to sepsis. 2. Sepsis/hypotension. An Infectious Disease consultation has been obtained with Dr. Dorantes. The patient has been placed empirically on meropenem, amikacin, and vancomycin. Urine, blood, and sputum cultures are pending. 3. Pneumonia. A Pulmonary consultation has been obtained with Dr. Dennis Woodall. The patient has been started on meropenem, vancomycin, and amikacin as above. Sputum cultures are pending. 4. Congestive heart failure. Cardiology consultation has been obtained. 5. Dysphagia. The patient is status post G-tube placement as above. 6. Functional quadriplegia. 7. History of coronary artery disease, status post myocardial infarction. Bunny Morocho M.D. DR: BRYON JOB#: [id number] CC:
[2019-01-25] MEDS: Vancomycin 750mg/NS 275ml IVPB SCH ×2 (00:38)
--- NOTE | 2019-01-25 01:30 | NUR ---
NURSE NOTES: Blood transfusion complete, Post-transfusion Temp 97.9, HR 60, BP 164/82
[2019-01-25] MEDS: Meropenem 1 GM in NS 55 ML IVPB SCH ×2 (03:04→15:35)
[2019-01-25 04:00] VITALS: BP 155/80
[2019-01-25 06:50] LABS: BASOPHILS % (AUTO) 1.2 % (0.0-2.0); EOSINOPHILS % (AUTO) 5.7 % (0.0-3.0); HEMOGLOBIN 8.1 G/DL (14.2-18.0); LYMPHOCYTES % (AUTO) 9.6 % (20.0-45.0); MEAN CORPUSCULAR VOLUME 90 FL (80-99); NEUTROPHILS % (AUTO) 74.4 % (45.0-75.0); PLATELET COUNT 119 K/UL (150-450); RED BLOOD COUNT 2.88 M/UL (4.70-6.10); RED CELL DISTRIBUTION WIDTH 16.7 % (11.6-14.8); WHITE BLOOD COUNT 7.1 K/UL (4.8-10.8)
--- NOTE | 2019-01-25 07:00 | NUR ---
RESPIRATORY NOTES: Received Patient on Vent settings ACVC RR 16, VT 600, FIO2 60%, PEEP +5. Patient is trached with a Portex 8 tracheostomy tube, secured with trach ties. Bilateral rhonchi noted throughout both lung sanchez. Suction small amount of thin white/ green secretions Q2 and PRN through ETT. Vent alarms are on and audible. Vent plugged into red outlet. Will continue to monitor throughout the day.
[2019-01-25 07:11] LABS: ALANINE AMINOTRANSFERASE 12 U/L (12-78); ALBUMIN 1.6 G/DL (3.4-5.0); ALBUMIN/GLOBULIN RATIO 0.3 (1.0-2.7); ALKALINE PHOSPHATASE 74 U/L (46-116); ANION GAP 6 mmol/L (5-15); ASPARTATE AMINO TRANSFERASE 22 U/L (15-37); BILIRUBIN,TOTAL 0.5 MG/DL (0.2-1.0); BLOOD UREA NITROGEN 29 mg/dL (7-18); CALCIUM 8.4 MG/DL (8.5-10.1); CARBON DIOXIDE 25 MMOL/L (21-32); CHLORIDE 105 MMOL/L (98-107); CREATININE 0.7 MG/DL (0.55-1.30); PHOSPHORUS 2.8 MG/DL (2.5-4.9); POTASSIUM 3.6 MMOL/L (3.5-5.1); SODIUM 136 MMOL/L (136-145)
--- NOTE | 2019-01-25 07:17 | NUR ---
HAND-OFF: Report given to Milka Lang RN. Patient in stable condition.
--- NOTE | 2019-01-25 07:51 | NUR ---
RADIOLOGY DEPT., CHEST X-RAY DONE.-P.DYE
[2019-01-25 08:00] VITALS: BP 151/77
--- NOTE | 2019-01-25 08:12 | NUR ---
NURSE NOTES: received pt in the bed, awake, vent dependent, vital signs stable, no co pain, no SOB, skin warm and dry to touch, multiple decub, dressing dry and intact, tolerate GT feeding well, bed in low position, HOB elevated, call light within reach.
[2019-01-25] MEDS: Pantoprazole Inj IV SCH (08:37)
[2019-01-25] MEDS: Ascorbic Acid 500mg tab ORAL SCH ×2 (08:37→18:06)
[2019-01-25] MEDS: Heparin 5000 units/ml inj SUBQ SCH ×2 (08:37→20:43)
--- NOTE | 2019-01-25 09:01 | Diagnostic Imaging Report ---
Indication: Dyspnea Technique: One view of the chest Comparison: 01/23/2019 Findings: There is suggestion of decreased pleural fluid on the left. Extensive interstitial and airspace parenchymal disease on the left persists, appearing unchanged. There may be slightly increased interstitial parenchymal disease on the right. Tracheostomy remain. Heart size is normal Impression: Bilateral infiltrates versus edema, left greater than right, stable on the left but somewhat increased on the right over 2 days Suggestion of some improvement of pleural fluid on the left
--- NOTE | 2019-01-25 10:31 | NUR ---
GROUND SERVICE EQUIPMENT MECHANICSENIOR UI UX DESIGNER SI: RESP FAILURE TRACH/VENT DEPENDENT,SEPSIS T. 98.2 HR 49 RR 17 B/P 151/77 AC 16 TV 600 FIO2 50% PEEP 5 BUN 29 MG 1.6 CXR= BILATERAL INFILTRATES LEFT > THAN RIGHT IS: MEROPENEM IV HEPARIN SUBC ALB HHN STEP DOWN STATUS
--- NOTE | 2019-01-25 10:33 | NUR ---
PERSONNEL TECHNICIAN NOTES CLINICALS REVIEWED AND FAXED TO [facility] [phone]
--- NOTE | 2019-01-25 10:37 | Pulmonolgy Critical Care Note ---
Critical Care - Asmt/Plan Problems: (1) Acute on chronic respiratory failure (2) Left pulmonary infiltrate on CXR (3) Severe anemia (4) Pleural effusion, left (5) At high risk for aspiration (6) funtional quadriplegia (7) Feeding by G-tube (8) Protein-calorie malnutrition, severe Respiratory: monitor respiratory rate, adjust FIO2, CXR Cardiac: continue pressors, continue to monitor HR/BP Renal: F/U I&O, check electrolytes Infectious Disease: check cultures, continue antibiotics Gastrointestinal: continue feedings/current rate Endocrine: check TSH Hematologic: monitor H/H, transfuse if hgb<8.5 Neurologic: PRN Ativan, PRN Morphine, keep patient comfortable Prophylaxis: Heparin Time Spent (Minutes): 40 Notes Reviewed: esthetician/skin therapist, renal Discussed with: nurses, consultants, protective services case workerintegrated marketing manager - Objective Last 24 Hour Vital Signs Date Time Temp Pulse Resp B/P (MAP) Pulse Ox O2 Delivery O2 Flow Rate FiO2 01/25/19 09:29 60 20 50 01/25/19 08:00 Mechanical Ventilator 01/25/19 08:00 98.2 53 22 151/77 (101) 93 01/25/19 08:00 30 01/25/19 08:00 52 01/25/19 07:17 53 17 60 01/25/19 05:24 64 23 60 01/25/19 04:00 30 01/25/19 04:00 99.0 61 24 155/80 (105) 94 01/25/19 04:00 Mechanical Ventilator 01/25/19 03:29 49 01/25/19 03:19 57 23 30 01/25/19 01:31 51 17 30 01/25/19 00:00 Mechanical Ventilator 01/25/19 00:00 98.8 60 19 153/75 (101) 98 01/24/19 23:35 51 01/24/19 23:26 51 18 30 01/24/19 21:44 166/75 01/24/19 21:29 61 25 30 01/24/19 20:00 99.0 58 18 163/82 (109) 98 01/24/19 20:00 Mechanical Ventilator 01/24/19 20:00 30 01/24/19 19:58 61 01/24/19 19:44 56 17 30 01/24/19 19:30 99.0 01/24/19 17:22 60 17 30 01/24/19 16:00 99.5 71 20 144/82 (102) 92 01/24/19 16:00 Mechanical Ventilator 01/24/19 16:00 59 01/24/19 16:00 30 01/24/19 14:56 62 19 30 01/24/19 12:46 66 18 30 01/24/19 12:01 99.8 58 18 151/58 (89) 97 01/24/19 12:00 Mechanical Ventilator 01/24/19 12:00 30 01/24/19 12:00 56 01/24/19 10:47 58 18 30 Status: awake Condition: critical HEENT: atraumatic Lungs: clear, chest wall tender Heart: HR/BP stable Abdomen: soft, active bowel sounds Extremities: no C/C/E, edema Micro: Microbiology Date/Time Source Procedure Growth Status 01/23/19 13:50 Blood Blood Culture - Preliminary NO GROWTH AFTER 24 HOURS Resulted 01/23/19 13:35 Blood Blood Culture - Preliminary NO GROWTH AFTER 24 HOURS Resulted 01/23/19 23:45 Sputum Gram Stain - Final Resulted 01/23/19 23:45 Sputum Sputum Culture Pending Resulted 01/23/19 13:50 Urine,Clean Catch Urine Culture - Preliminary Enterococcus Faecalis - Vre Resulted 01/23/19 14:00 Rectum VRE Culture - Final Enterococcus Faecalis - Vre Complete Critical Care - Subjective ROS Limited/Unobtainable: No Condition: critical FI02: 50 Vent Support Breath Rate: 16 Vent Support Mode: AC Vent Tidal Volume: 600 Sputum Amount: Moderate PEEP: 5.0 PIP: 32 Tube Feeding Amount: 30 I&O: Intake and Output 01/24/19 01/25/19 19:00 07:00 Intake Total 530 ml 1590.000 ml Output Total 900 ml 1000 ml Balance -370 ml 590.000 ml Free Water 200 ml 900 ml IV Total 330.000 ml Tube Feeding 330 ml 360 ml Output Urine Total 900 ml 1000 ml # Bowel Movements 2 1 Labs: Laboratory Tests Test 01/24/19 11:30 01/25/19 03:01 01/25/19 04:30 01/25/19 06:36 Erythrocyte Sedimentation Rate 141 MM/HR (0-20) H Reticulocyte Count 1.1 % (0.5-2.0) Prothrombin Time 12.2 SEC (9.30-11.50) H Prothromb Time International Ratio 1.2 (0.9-1.1) H Activated Partial Thromboplast Time 37 SEC (23-33) H Iron Level 19 ug/dL (50-175) L Total Iron Binding Capacity 78 ug/dL (250-450) L Percent Iron Saturation 24 % (15-50) Unsaturated Iron Binding 59 ug/dL (112-346) L Lactate Dehydrogenase 127 U/L (81-234) Carcinoembryonic Antigen Pending Vitamin B12 Level 1209 PG/ML (193-986) H Folate 64.6 NG/ML (8.6-58.9) H Vancomycin Level Trough 28.2 ug/mL (5.0-12.0) H White Blood Count 7.1 K/UL (4.8-10.8) Red Blood Count 2.88 M/UL (4.70-6.10) L Hemoglobin 8.1 G/DL (14.2-18.0) L Hematocrit 26.0 % (42.0-52.0) L Mean Corpuscular Volume 90 FL (80-99) Mean Corpuscular Hemoglobin 28.3 PG (27.0-31.0) Mean Corpuscular Hemoglobin Concent 31.3 G/DL (32.0-36.0) L Red Cell Distribution Width 16.7 % (11.6-14.8) H Platelet Count 119 K/UL (150-450) L Mean Platelet Volume 6.4 FL (6.5-10.1) L Neutrophils (%) (Auto) 74.4 % (45.0-75.0) Lymphocytes (%) (Auto) 9.6 % (20.0-45.0) L Monocytes (%) (Auto) 9.0 % (1.0-10.0) Eosinophils (%) (Auto) 5.7 % (0.0-3.0) H Basophils (%) (Auto) 1.2 % (0.0-2.0) Sodium Level 136 MMOL/L (136-145) Potassium Level 3.6 MMOL/L (3.5-5.1) Chloride Level 105 MMOL/L (98-107) Carbon Dioxide Level 25 MMOL/L (21-32) Anion Gap 6 mmol/L (5-15) Blood Urea Nitrogen 29 mg/dL (7-18) H Creatinine 0.7 MG/DL (0.55-1.30) Estimat Glomerular Filtration Rate mL/min (>60) Glucose Level 85 MG/DL (74-106) Calcium Level 8.4 MG/DL (8.5-10.1) L Phosphorus Level 2.8 MG/DL (2.5-4.9) Magnesium Level 1.6 MG/DL (1.8-2.4) L Total Bilirubin 0.5 MG/DL (0.2-1.0) Aspartate Amino Transf (AST/SGOT) 22 U/L (15-37) Alanine Aminotransferase (ALT/SGPT) 12 U/L (12-78) Alkaline Phosphatase 74 U/L (46-116) Total Protein 7.1 G/DL (6.4-8.2) Albumin 1.6 G/DL (3.4-5.0) L Globulin 5.5 g/dL Albumin/Globulin Ratio 0.3 (1.0-2.7) L Stool Occult Blood Pending Dennis Woodall MD Jan 25, 2019 10:37
--- NOTE | 2019-01-25 11:59 | NUR ---
*-* INSURANCE *-* ALL CLINICALS AND REVIEWS HAVE BEEN FAXED: AJ GUZMAN# [phone] [facility]: KIM An- [phone] F- [phone]...REVIEW/CLINICAL
[2019-01-25 12:00] VITALS: BP 147/73
--- NOTE | 2019-01-25 12:37 | Infectious Diseases Prog Note ---
Assessment/Plan Assessment/Plan Assessment: Sepsis- likely 2ry to UTI- r.o PNA -01/25 CXR: Bilateral infiltrates versus edema, left greater than right, stable on the left but somewhat increased on the right over 2 days. Suggestion of some improvement of pleural fluid on the left -u/a wbc 5-10, nit neg, leuk +3; ucx >100kVRE (S Linezolid, amp, nitrofurantoin) -CXR: Left lung infiltrates versus edema, left-sided pleural effusion, and volume loss. Appearance of this is similar to prior study of 11/22/2018. Right lung interstitial opacities, may reflect infiltrates or edema. No overall better aeration of the right lung compared to the previous study. -sp cx p -Bcx : NTD Afebrile Leukocytosis, SP hx of ESBL Proteus UTI and bacteremia 11/2018 chronic respiratory failure trach/vent dependent functional quadriplegia malnutrition multiple decubiti ulcers hx of PNA dysphagia s/p GT Zosyn allergy (received 1 dose of Ertapenem back in November 2018) Plan: -Switch empiric IV Vancomycin #3 to Daptomycin for VRE UTI -Continue Meropenem #2 (abx d #3) pending cultures -01/24 SP Amikacin #1 -01/23 SP Gentamycin -f/u cx -Monitor CBC/CMP, temperatures -aspiration precautions -trach/GT care -wound care per hospital protocol Thank you for this consultation. Will continue to follow along with you. Discussed with RN Subjective Allergies: Coded Allergies: NSAIDS (NON-STEROIDAL ANTI-INFLAMMA (Unverified Allergy, Unknown, 11/27/18) PIPERACILLIN (Unverified Allergy, Unknown, 11/27/18) TAZOBACTAM (Unverified Allergy, Unknown, 11/27/18) Uncoded Allergies: NSAID (Allergy, Unknown, 09/14/18) Subjective afebrile no leukocytosis Bcx NTD Objective Vital Signs Last 24 Hour Vital Signs Date Time Temp Pulse Resp B/P (MAP) Pulse Ox O2 Delivery O2 Flow Rate FiO2 01/25/19 11:22 53 17 40 01/25/19 09:29 60 20 50 01/25/19 08:00 Mechanical Ventilator 01/25/19 08:00 98.2 53 22 151/77 (101) 93 01/25/19 08:00 30 01/25/19 08:00 52 01/25/19 07:17 53 17 60 01/25/19 05:24 64 23 60 01/25/19 04:00 30 01/25/19 04:00 99.0 61 24 155/80 (105) 94 01/25/19 04:00 Mechanical Ventilator 01/25/19 03:29 49 01/25/19 03:19 57 23 30 01/25/19 01:31 51 17 30 01/25/19 00:00 Mechanical Ventilator 01/25/19 00:00 98.8 60 19 153/75 (101) 98 01/24/19 23:35 51 01/24/19 23:26 51 18 30 01/24/19 21:44 166/75 01/24/19 21:29 61 25 30 01/24/19 20:00 99.0 58 18 163/82 (109) 98 01/24/19 20:00 Mechanical Ventilator 01/24/19 20:00 30 01/24/19 19:58 61 01/24/19 19:44 56 17 30 01/24/19 19:30 99.0 01/24/19 17:22 60 17 30 01/24/19 16:00 99.5 71 20 144/82 (102) 92 01/24/19 16:00 Mechanical Ventilator 01/24/19 16:00 59 01/24/19 16:00 30 01/24/19 14:56 62 19 30 01/24/19 12:46 66 18 30 01/24/19 12:01 99.8 58 18 151/58 (89) 97 01/24/19 12:00 Mechanical Ventilator 01/24/19 12:00 30 01/24/19 12:00 56 Height (Feet): 5 Height (Inches): 3.00 Weight (Pounds): 135 Objective General Appearance: other - unresponsive, Chronically Ill Head: normocephalic, atraumatic Eyes: bilateral eye other - dry, eyes closed ENT: dry mucus membranes Neck: tracheotomy Respiratory: lungs clear, normal breath sounds, decreased breath sounds Cardiovascular regular rate, rhythm Gastrointestinal: other - g tube, decreased bowel sounds, scaphoid Genitourinary: other - diaper Musculoskeletal: other - contractures, atrophy Skin: Decubitus/Ulcer - all dependent areas Microbiology Date/Time Source Procedure Growth Status 01/23/19 13:50 Blood Blood Culture - Preliminary NO GROWTH AFTER 24 HOURS Resulted 01/23/19 13:35 Blood Blood Culture - Preliminary NO GROWTH AFTER 24 HOURS Resulted 01/23/19 23:45 Sputum Gram Stain - Final Resulted 01/23/19 23:45 Sputum Sputum Culture Pending Resulted 01/23/19 13:50 Urine,Clean Catch Urine Culture - Preliminary Enterococcus Faecalis - Vre Resulted 01/23/19 14:00 Rectum VRE Culture - Final Enterococcus Faecalis - Vre Complete Laboratory Tests Test 01/25/19 03:01 01/25/19 04:30 01/25/19 06:36 Vancomycin Level Trough 28.2 ug/mL (5.0-12.0) H White Blood Count 7.1 K/UL (4.8-10.8) Red Blood Count 2.88 M/UL (4.70-6.10) L Hemoglobin 8.1 G/DL (14.2-18.0) L Hematocrit 26.0 % (42.0-52.0) L Mean Corpuscular Volume 90 FL (80-99) Mean Corpuscular Hemoglobin 28.3 PG (27.0-31.0) Mean Corpuscular Hemoglobin Concent 31.3 G/DL (32.0-36.0) L Red Cell Distribution Width 16.7 % (11.6-14.8) H Platelet Count 119 K/UL (150-450) L Mean Platelet Volume 6.4 FL (6.5-10.1) L Neutrophils (%) (Auto) 74.4 % (45.0-75.0) Lymphocytes (%) (Auto) 9.6 % (20.0-45.0) L Monocytes (%) (Auto) 9.0 % (1.0-10.0) Eosinophils (%) (Auto) 5.7 % (0.0-3.0) H Basophils (%) (Auto) 1.2 % (0.0-2.0) Sodium Level 136 MMOL/L (136-145) Potassium Level 3.6 MMOL/L (3.5-5.1) Chloride Level 105 MMOL/L (98-107) Carbon Dioxide Level 25 MMOL/L (21-32) Anion Gap 6 mmol/L (5-15) Blood Urea Nitrogen 29 mg/dL (7-18) H Creatinine 0.7 MG/DL (0.55-1.30) Estimat Glomerular Filtration Rate mL/min (>60) Glucose Level 85 MG/DL (74-106) Calcium Level 8.4 MG/DL (8.5-10.1) L Phosphorus Level 2.8 MG/DL (2.5-4.9) Magnesium Level 1.6 MG/DL (1.8-2.4) L Total Bilirubin 0.5 MG/DL (0.2-1.0) Aspartate Amino Transf (AST/SGOT) 22 U/L (15-37) Alanine Aminotransferase (ALT/SGPT) 12 U/L (12-78) Alkaline Phosphatase 74 U/L (46-116) Total Protein 7.1 G/DL (6.4-8.2) Albumin 1.6 G/DL (3.4-5.0) L Globulin 5.5 g/dL Albumin/Globulin Ratio 0.3 (1.0-2.7) L Stool Occult Blood Pending Current Medications Medications (Trade) Dose Ordered Sig/Margarette Route PRN Reason Start Time Stop Time Status Last Admin Dose Admin Acetaminophen (Tylenol) 650 mg Q4H PRN ORAL FEVER 01/23/19 16:15 02/22/19 16:14 01/24/19 17:39 Albuterol/ Ipratropium (Albuterol/ Ipratropium) 3 ml Q4H PRN HHN Shortness of Breath 01/23/19 16:15 01/28/19 16:14 Ascorbic Acid (Vitamin C) 250 mg TWICE A DAY ORAL 01/24/19 18:00 02/23/19 17:59 01/25/19 08:37 Clonidine HCl (Catapres Tab) 0.1 mg Q6H PRN GT For High Blood Pressure 01/24/19 23:00 02/23/19 21:44 Dextrose (Dextrose 50%) 25 ml Q30M PRN IV Hypoglycemia 01/23/19 16:15 02/22/19 16:14 Dextrose (Dextrose 50%) 50 ml Q30M PRN IV Hypoglycemia 01/23/19 16:15 02/22/19 16:14 Heparin Sodium (Porcine) (Heparin 5000 units/ml) 5,000 units EVERY 12 HOURS SUBQ 01/23/19 21:00 02/22/19 20:59 7/23/19 08:37 Hydralazine HCl (Apresoline) 50 mg Q6HR PRN ORAL For High Blood Pressure 01/24/19 23:00 02/23/19 22:14 Lorazepam (Ativan 2mg/ml 1ml) 2 mg Q2H PRN IV For Anxiety 01/23/19 16:15 01/30/19 16:14 Magnesium Sulfate 100 ml @ 100 mls/hr Q1H IVPB 01/25/19 11:00 01/25/19 12:59 01/25/19 11:08 Meropenem 1 gm/ Sodium Chloride 55 ml @ 110 mls/hr Q12HR@0300,1500 IVPB 01/24/19 15:00 01/29/19 14:59 01/25/19 03:04 Morphine Sulfate (Morphine Sulfate) 4 mg Q4H PRN IVP Severe Pain (Pain Scale 7-10) 01/23/19 16:15 01/30/19 16:14 Ondansetron HCl (Zofran) 4 mg Q6H PRN IVP Nausea & Vomiting 01/23/19 16:15 02/22/19 16:14 Pantoprazole (Protonix) 40 mg DAILY IV 01/24/19 09:00 02/23/19 08:59 01/25/19 08:37 Polyethylene Glycol (Miralax) 17 gm DAILYPRN PRN ORAL Constipation 01/23/19 16:15 02/22/19 16:14 Vancomycin HCl (Vanco rx to dose) 1 ea DAILY PRN MISC Per rx protocol 01/23/19 16:15 02/22/19 16:14 Vancomycin HCl 750 mg/Sodium Chloride 275 ml @ 183.333 mls/hr Q12H IVPB 01/24/19 01:00 01/29/19 00:59 01/25/19 00:38 Lilly Dorantes M.D. Jan 25, 2019 12:37
--- NOTE | 2019-01-25 13:40 | Surgery Progress Note ---
Surgery Progress Note Subjective Additional Comments no acute events exam stable dressings changed labs noted micro noted Objective Last 24 Hour Vital Signs Date Time Temp Pulse Resp B/P (MAP) Pulse Ox O2 Delivery O2 Flow Rate FiO2 01/25/19 13:24 56 21 40 01/25/19 12:00 30 01/25/19 12:00 98.2 56 20 147/73 (97) 99 01/25/19 12:00 Mechanical Ventilator 01/25/19 11:22 53 17 40 01/25/19 09:29 60 20 50 01/25/19 08:00 Mechanical Ventilator 01/25/19 08:00 98.2 53 22 151/77 (101) 93 01/25/19 08:00 30 01/25/19 08:00 52 01/25/19 07:17 53 17 60 01/25/19 05:24 64 23 60 01/25/19 04:00 30 01/25/19 04:00 99.0 61 24 155/80 (105) 94 01/25/19 04:00 Mechanical Ventilator 01/25/19 03:29 49 01/25/19 03:19 57 23 30 01/25/19 01:31 51 17 30 01/25/19 00:00 Mechanical Ventilator 01/25/19 00:00 98.8 60 19 153/75 (101) 98 01/24/19 23:35 51 01/24/19 23:26 51 18 30 01/24/19 21:44 166/75 01/24/19 21:29 61 25 30 01/24/19 20:00 99.0 58 18 163/82 (109) 98 01/24/19 20:00 Mechanical Ventilator 01/24/19 20:00 30 01/24/19 19:58 61 01/24/19 19:44 56 17 30 01/24/19 19:30 99.0 01/24/19 17:22 60 17 30 01/24/19 16:00 99.5 71 20 144/82 (102) 92 01/24/19 16:00 Mechanical Ventilator 01/24/19 16:00 59 01/24/19 16:00 30 01/24/19 14:56 62 19 30 I&O Intake and Output 01/24/19 01/25/19 19:00 07:00 Intake Total 530 ml 1590.000 ml Output Total 900 ml 1000 ml Balance -370 ml 590.000 ml Free Water 200 ml 900 ml IV Total 330.000 ml Tube Feeding 330 ml 360 ml Output Urine Total 900 ml 1000 ml # Bowel Movements 2 1 Dressing: saturated Wound: other Drains: other Cardiovascular: RSR Respiratory: decreased breath sounds Abdomen: soft, present bowel sounds, other Extremities: other Laboratory Tests Test 01/25/19 03:01 01/25/19 04:30 01/25/19 06:36 01/25/19 11:50 Vancomycin Level Trough 28.2 ug/mL (5.0-12.0) H 19.7 ug/mL (5.0-12.0) H White Blood Count 7.1 K/UL (4.8-10.8) Red Blood Count 2.88 M/UL (4.70-6.10) L Hemoglobin 8.1 G/DL (14.2-18.0) L Hematocrit 26.0 % (42.0-52.0) L Mean Corpuscular Volume 90 FL (80-99) Mean Corpuscular Hemoglobin 28.3 PG (27.0-31.0) Mean Corpuscular Hemoglobin Concent 31.3 G/DL (32.0-36.0) L Red Cell Distribution Width 16.7 % (11.6-14.8) H Platelet Count 119 K/UL (150-450) L Mean Platelet Volume 6.4 FL (6.5-10.1) L Neutrophils (%) (Auto) 74.4 % (45.0-75.0) Lymphocytes (%) (Auto) 9.6 % (20.0-45.0) L Monocytes (%) (Auto) 9.0 % (1.0-10.0) Eosinophils (%) (Auto) 5.7 % (0.0-3.0) H Basophils (%) (Auto) 1.2 % (0.0-2.0) Sodium Level 136 MMOL/L (136-145) Potassium Level 3.6 MMOL/L (3.5-5.1) Chloride Level 105 MMOL/L (98-107) Carbon Dioxide Level 25 MMOL/L (21-32) Anion Gap 6 mmol/L (5-15) Blood Urea Nitrogen 29 mg/dL (7-18) H Creatinine 0.7 MG/DL (0.55-1.30) Estimat Glomerular Filtration Rate mL/min (>60) Glucose Level 85 MG/DL (74-106) Calcium Level 8.4 MG/DL (8.5-10.1) L Phosphorus Level 2.8 MG/DL (2.5-4.9) Magnesium Level 1.6 MG/DL (1.8-2.4) L Total Bilirubin 0.5 MG/DL (0.2-1.0) Aspartate Amino Transf (AST/SGOT) 22 U/L (15-37) Alanine Aminotransferase (ALT/SGPT) 12 U/L (12-78) Alkaline Phosphatase 74 U/L (46-116) Total Protein 7.1 G/DL (6.4-8.2) Albumin 1.6 G/DL (3.4-5.0) L Globulin 5.5 g/dL Albumin/Globulin Ratio 0.3 (1.0-2.7) L Stool Occult Blood Positive (NEGATIVE) Plan Problems: (1) funtional quadriplegia (2) Sepsis Assessment & Plan: leukocytosis hypotension tachycardia improving overall on IV abx trend labs (3) Chronic respiratory failure (4) Pneumonia (5) Acute on chronic respiratory failure (6) Vegetative endocarditis (7) Feeding by G-tube (8) Protein-calorie malnutrition, severe Assessment & Plan: DAILY ESTIMATED NEEDS: Needs based on Underweight, critical care, wounds, 58.5kg 30-35 kcals/kg 7691-9642 total kcals 1.25-2 g protein/kg 73-117 g total protein 25-30 mL/kg 2851-7733 total fluid mLs NUTRITION DIAGNOSIS: 1) Increased kcal and protein needs r/t wound healing and underweight status as evidenced by pt w/ multiple advanced wounds per photos, pending eval, and generalized severe wasting @72% of [place] body Weight. 2) Swallowing difficulty r/t respiratory failure as evidenced by pt is trach/ vent dep and GT dependent. CURRENT TF: Jevity 1.2 @30 (meets <60% est needs) ENTERAL NUTRITION RECOMMENDATIONS-->> TF change to OSMOLITE 1.5 @57ml/hr x24 hrs + Prosource x1 to provide 1368ml, 2052 kcal, 86g + 11g pro, 1042ml free H2O - Rec TF change to Osmolite 1.5 as per TF SCENE SHIFTER. - Start @37ml/hr x6 hrs. Advance as tolerated 10ml/hr q4-6 hrs to goal. - Add Prosource x1 daily to better meet est pro needs - Flush per . HOB over 30 degrees. ADDITIONAL RECOMMENDATIONS: PER SNF: HT=72inches (current BMI of 24 appears inaccurate) WOUND CARE: add WIL BID + VIT C 250mg BID (f/up w/ MD martell) Check lytes daily, replete as needed Weekly calibrated bed scale wts (9) At high risk for aspiration (10) ATN (acute tubular necrosis) (11) Severe anemia (12) Encephalopathy acute (13) Pyuria (14) Left pulmonary infiltrate on CXR (15) Pleural effusion, left (16) Decubitus skin ulcer Assessment & Plan: This is an 83-year-old male who presented with multiple decubitus ulcers, extremity contractures, wounds. Two DTPI's noted to thoracic spine.(proximal)-(L)0.9cm x (W)0.2cm.Base of wound purple with marginal erythema. (Inferior) (L)1cm x (W)0.7cm . Base of wound indurated,purple with marginal erythema. DTPI L lumbar/sacral . Base of wound maroon with marginal erythema (L)1.3cm x(W )1.5cm. Partially opened DTPI sacrum .Base of wound indurated purple with marginal erythema along edges.Surrounding partial thickness shearing that is moist and viable. No odor or exudate noted. (L)1.3cm x (W)1.5cm. Large partial thickness pressure injury base of scrotum extending into perineum and perianal area. BAse of wound moist -viable with scattered small purple areas within base at perineum.Small amt non-odorous serous exudate noted .Erythema noted periwound. Full thickness pressure injury L trochanter. [place] granulation with undermining at base of wound. Bone is visible at base of wound clockwise 12-2.Small area along edges with slough. Hyperpigmentation periwound.Small amt non-odorous serous exudate noted (L)1.3cm x (W)1.5cmx(D)1.4cm,Undermining 9-5 by 4.5cm @5o' clock. Full thickness pressure injury R trochanter. Red granulation at base with trace amt biofilm and undermining. Bone is palpable. NO odor noted .Moderate amt non- odorous serous exudate. (L)3cm x (W)3.6cm x (D)1.4cm,Undermining 9-3 by 2.4cm @ 2o'clock. DTPI noted to L knee. Elongated and indurated maroon discoloration with red- tinged edges (L)6.2cm x (W)0.5cm. Non-blanchable erythema periwound. Full thickness pressure injury L heel.Large loose blood clot noted and easily removed.25% fibrinous slough. Bone is palpable.No odor noted. Full thickness pressure injuries noted to dorso/flexor -(2 sites).Partially opened DTPI (L)3.5cm x (W)4.5cm .Base of wound maroon,fluctuant with 50% slough. Periwound fluctuant with smaller DTPI in close proximity dorso/lateral aspect(L)1cm x (W)1.3cm .Base of wound maroon with fluctuance.. Full thickness wound lateral L foot (L)2.5cm x (W)1.5cm. Base of wound moist viable with trace Biofilm. (+) maceration along borders. Small amt non-odorous serous exudate. Non -blanchable erythema periwound. DTPI L lateral malleolus.Base of wound fluctuant, purple with red margins. Non- blanchable erythema periwound (L) 1.5cm x (W)2.4cm. Full thickness ulcers noted to dorsal aspects of 2nd ,3rd and 4th metatarsals.2nd metatarsal (L)0.9cm x (W)1cm. Base of wound moist viable. indurated borders.NO odor or exudate noted. L3rd metatarsal.Base of wound hypergranular.periwound is dark. Small amt non- odorous serosanguineous exudate noted. L 4th metatarsal. Base of wound moist- viable. Edges adherent . Periwound without erythema or induration. L 1st metetarsal head noted to have small area of non-blanchable erythema(L) 0.5cm x (W)0.5cm. Scattered small dry scabs without presence of erythema noted to dorsal aspect of R foot. Unstageable pressure injury noted to R hallux. Base of wound with 80% mixed soft necrosis and slough,20% viable. (+) maceration along borders .Small amt sanguineous exudate noted. Periwound fluctuant with non-blanchable erythema. (L) 1cm x (W)1.2cm. DTPI medial (arch) of R foot .Base of wound maroon with fluctuance. Periwound without erythema.(L)0.7cm x (W)1.4cm. Full thickness pressure injury R heel . with an area along borders that is maroon and fluctuant.(L)2cm x (W)1.4cm. Tx.Plan: Cleanse wounds R /L trochanter with Saline.Apply Therahoney.Apply Triad periwound.Cover with Optifoam Dailyand prn. Cleanse wounds R hallux,R Heel with Saline.Apply Therahoney.Apply Cavilon Periwound. Coverwith Optifoam drsg. Change every 3 days and prn. Cleanse wounds L Hallux,L heel,Dorso/flexor L foot ,lateral L foot, L 2nd ,L 3rd ,4th metatarsals with Saline. Apply Therahoney. Apply Cavilon Periwound. Cover with Optifoam drsg. Change every 3 days and prn. Apply Triad Paste to scrotum,perineum and perianal area with each perineal care. Apply Cavilon Skin Barrier to areas of DTPI Thoracic spine, and L lumbar sacral areas. Cover each site withOptifoam drsgs. Change every 7 days and prn. Apply Cavilon Skin Barrier to DTPIs L lateral malleolus,L knee .Cover each wound with Optifoam drsgs. Change every 7 days and prn. Apply Triad paste to Sacrum. Cover with Optifoam drsg. Change every 3 days and prn. Reposition at least every 2hours or as tolerated. Position with pillows between knees and behind knees for off-loading. APM/YOLANDE Mattress overlay. Stanislav Avelar Jan 25, 2019 13:40
[2019-01-25] MEDS: DAPTOmycin 250 MG in NS 55 ML IV SCH (13:51)
--- NOTE | 2019-01-25 14:00 | NUR ---
NURSE NOTES: vital signs stable, bed bath given, 2gm of Magnesium given as ordered, continue monitoring.
--- NOTE | 2019-01-25 15:41 | Internal Med Progress Note ---
Subjective Date of Service: Jan 25, 2019 Physician Name Bunny Morocho Attending Physician Danis Wolfe MD Current Medications Medications (Trade) Dose Ordered Sig/Margarette Route PRN Reason Start Time Stop Time Status Last Admin Dose Admin Acetaminophen (Tylenol) 650 mg Q4H PRN ORAL FEVER 01/23/19 16:15 02/22/19 16:14 01/24/19 17:39 Albuterol/ Ipratropium (Albuterol/ Ipratropium) 3 ml Q4H PRN HHN Shortness of Breath 01/23/19 16:15 01/28/19 16:14 Ascorbic Acid (Vitamin C) 250 mg TWICE A DAY ORAL 01/24/19 18:00 02/23/19 17:59 01/25/19 08:37 Clonidine HCl (Catapres Tab) 0.1 mg Q6H PRN GT For High Blood Pressure 01/24/19 23:00 02/23/19 21:44 Daptomycin 250 mg/ Sodium Chloride 55 ml @ 100 mls/hr Q24H IV 01/25/19 14:00 02/01/19 13:59 01/25/19 13:51 Dextrose (Dextrose 50%) 25 ml Q30M PRN IV Hypoglycemia 01/23/19 16:15 02/22/19 16:14 Dextrose (Dextrose 50%) 50 ml Q30M PRN IV Hypoglycemia 01/23/19 16:15 02/22/19 16:14 Heparin Sodium (Porcine) (Heparin 5000 units/ml) 5,000 units EVERY 12 HOURS SUBQ 01/23/19 21:00 02/22/19 20:59 01/25/19 08:37 Hydralazine HCl (Apresoline) 50 mg Q6HR PRN ORAL For High Blood Pressure 01/24/19 23:00 02/23/19 22:14 Lorazepam (Ativan 2mg/ml 1ml) 2 mg Q2H PRN IV For Anxiety 01/23/19 16:15 01/30/19 16:14 Meropenem 1 gm/ Sodium Chloride 55 ml @ 110 mls/hr Q12HR@0300,1500 IVPB 01/24/19 15:00 01/29/19 14:59 01/25/19 15:35 Morphine Sulfate (Morphine Sulfate) 4 mg Q4H PRN IVP Severe Pain (Pain Scale 7-10) 01/23/19 16:15 01/30/19 16:14 Ondansetron HCl (Zofran) 4 mg Q6H PRN IVP Nausea & Vomiting 01/23/19 16:15 02/22/19 16:14 Pantoprazole (Protonix) 40 mg DAILY IV 01/24/19 09:00 02/23/19 08:59 01/25/19 08:37 Polyethylene Glycol (Miralax) 17 gm DAILYPRN PRN ORAL Constipation 01/23/19 16:15 02/22/19 16:14 Allergies: Coded Allergies: NSAIDS (NON-STEROIDAL ANTI-INFLAMMA (Unverified Allergy, Unknown, 11/27/18) PIPERACILLIN (Unverified Allergy, Unknown, 01/25/19) tolerates carbapenem TAZOBACTAM (Unverified Allergy, Unknown, 11/27/18) Uncoded Allergies: NSAID (Allergy, Unknown, 09/14/18) ROS Limited/Unobtainable: Yes Subjective 83 YO M admitted with hypotension and altered mental status. Now UTI. Cover for Int med-Dr Wolfe. ARUN Objective Last Vital Signs Date Time Temp Pulse Resp B/P (MAP) Pulse Ox O2 Delivery O2 Flow Rate FiO2 01/25/19 13:24 56 21 40 01/25/19 12:00 98.2 147/73 (97) 99 01/25/19 12:00 Mechanical Ventilator 01/23/19 17:47 15.0 Laboratory Tests Test 01/25/19 03:01 01/25/19 04:30 01/25/19 06:36 01/25/19 11:50 Vancomycin Level Trough 28.2 ug/mL (5.0-12.0) H 19.7 ug/mL (5.0-12.0) H White Blood Count 7.1 K/UL (4.8-10.8) Red Blood Count 2.88 M/UL (4.70-6.10) L Hemoglobin 8.1 G/DL (14.2-18.0) L Hematocrit 26.0 % (42.0-52.0) L Mean Corpuscular Volume 90 FL (80-99) Mean Corpuscular Hemoglobin 28.3 PG (27.0-31.0) Mean Corpuscular Hemoglobin Concent 31.3 G/DL (32.0-36.0) L Red Cell Distribution Width 16.7 % (11.6-14.8) H Platelet Count 119 K/UL (150-450) L Mean Platelet Volume 6.4 FL (6.5-10.1) L Neutrophils (%) (Auto) 74.4 % (45.0-75.0) Lymphocytes (%) (Auto) 9.6 % (20.0-45.0) L Monocytes (%) (Auto) 9.0 % (1.0-10.0) Eosinophils (%) (Auto) 5.7 % (0.0-3.0) H Basophils (%) (Auto) 1.2 % (0.0-2.0) Sodium Level 136 MMOL/L (136-145) Potassium Level 3.6 MMOL/L (3.5-5.1) Chloride Level 105 MMOL/L (98-107) Carbon Dioxide Level 25 MMOL/L (21-32) Anion Gap 6 mmol/L (5-15) Blood Urea Nitrogen 29 mg/dL (7-18) H Creatinine 0.7 MG/DL (0.55-1.30) Estimat Glomerular Filtration Rate mL/min (>60) Glucose Level 85 MG/DL (74-106) Calcium Level 8.4 MG/DL (8.5-10.1) L Phosphorus Level 2.8 MG/DL (2.5-4.9) Magnesium Level 1.6 MG/DL (1.8-2.4) L Total Bilirubin 0.5 MG/DL (0.2-1.0) Aspartate Amino Transf (AST/SGOT) 22 U/L (15-37) Alanine Aminotransferase (ALT/SGPT) 12 U/L (12-78) Alkaline Phosphatase 74 U/L (46-116) Total Protein 7.1 G/DL (6.4-8.2) Albumin 1.6 G/DL (3.4-5.0) L Globulin 5.5 g/dL Albumin/Globulin Ratio 0.3 (1.0-2.7) L Stool Occult Blood Positive (NEGATIVE) Microbiology Date/Time Source Procedure Growth Status 01/23/19 13:50 Blood Blood Culture - Preliminary NO GROWTH AFTER 24 HOURS Resulted 01/23/19 13:35 Blood Blood Culture - Preliminary NO GROWTH AFTER 24 HOURS Resulted 01/23/19 23:45 Sputum Gram Stain - Final Resulted 01/23/19 23:45 Sputum Sputum Culture Pending Resulted 01/23/19 13:50 Urine,Clean Catch Urine Culture - Preliminary Enterococcus Faecalis - Vre Resulted 01/23/19 14:00 Rectum VRE Culture - Final Enterococcus Faecalis - Vre Complete Intake and Output 01/24/19 01/25/19 19:00 07:00 Intake Total 530 ml 1590.000 ml Output Total 900 ml 1000 ml Balance -370 ml 590.000 ml Free Water 200 ml 900 ml IV Total 330.000 ml Tube Feeding 330 ml 360 ml Output Urine Total 900 ml 1000 ml # Bowel Movements 2 1 Objective PHYSICAL EXAMINATION: GENERAL: The patient is a well-developed and well-nourished male, who is intubated and sedated. HEENT: Eyes, pupils are equal and responsive to light and accommodation. Extraocular movements are intact. NECK: Supple without lymphadenopathy. CHEST: Lungs are clear to auscultation bilaterally without wheezes or rales. CARDIOVASCULAR: Regular rhythm and rate. S1 and S2 are normal without murmurs, rubs, or gallops. ABDOMEN: Soft, nontender, and nondistended. Positive bowel sounds. No evidence of hepatosplenomegaly. Currently, no rebound or guarding noted. EXTREMITIES: Negative for clubbing, cyanosis, or edema. RECTAL/GENITAL: Refused. NEUROLOGICAL: Unable to assess. Assessment/Plan Assessment/Plan ASSESSMENT: This is an 83-year-old male. 1. Altered mental status. 2. Probable sepsis. 3. Hypertension. 4. Leukocytosis. 5. Pneumonia. 6. Congestive heart failure. 7. Dysphagia. 8. Ventilator dependence. 9. Functional quadriplegia. 10. History of myocardial infarction. 11. 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 Altered mental status. This may be secondary to sepsis. 2. Sepsis/hypotension. An Infectious Disease consultation has been obtained with Dr. Dorantes. The patient has been placed empirically on meropenem, amikacin, and vancomycin. Urine, blood, and sputum cultures are pending. 3. Pneumonia. A Pulmonary consultation has been obtained with Dr. Dennis Woodall. The patient has been started on meropenem, vancomycin, and amikacin as above. Sputum cultures are pending. 4. Congestive heart failure. Cardiology consultation has been obtained. 5. Dysphagia. The patient is status post G-tube placement as above. 6. Functional quadriplegia. 7. History of coronary artery disease, status post myocardial infarction. 8. Abx=meropenem and daptomycin per Bunny Rodrigues MD Jan 25, 2019 15:41
[2019-01-25 16:00] VITALS: BP 153/82
--- NOTE | 2019-01-25 19:31 | NUR ---
HAND-OFF: Report given to EOM RN.
--- NOTE | 2019-01-25 19:35 | NUR ---
NURSE NOTES: Report received from TEDDY Jarquin. Pt asleep noted no resp distress,with trach tube to vent, Portex8 settings noted,AC 16,TV 600,Fio2 30%,Peep 5. GTF Jevity 1.2 at 30 ml/hr,no residual noted. Cnuha cath draining yellow urine. IV sites 18G x2 RW HL and LFA HL ,skin warm and dry,with multiple pressure ulcers and open wounds to LE and posterior back. SR on cns. HOB elevated,bed locked in lowest position. Will continue with plans of care.
[2019-01-25 20:00] VITALS: BP 162/79
[2019-01-26] VITALS: BP 146/80
--- NOTE | 2019-01-26 | NUR ---
NURSE NOTES: Pt's resting in bed, in no acute distress. VS stable. HOB kept elevated. Will continue to monitor.
[2019-01-26] MEDS: Meropenem 1 GM in NS 55 ML IVPB SCH ×2 (03:54→15:48)
[2019-01-26 04:00] VITALS: BP 144/85
[2019-01-26 04:13] LABS: BASOPHILS % (AUTO) 0.7 % (0.0-2.0); EOSINOPHILS % (AUTO) 9.1 % (0.0-3.0); HEMATOCRIT 27.3 % (42.0-52.0); HEMOGLOBIN 8.8 G/DL (14.2-18.0); LYMPHOCYTES % (AUTO) 9.2 % (20.0-45.0); MEAN CORPUSCULAR VOLUME 89 FL (80-99); MONOCYTES % (AUTO) 8.3 % (1.0-10.0); NEUTROPHILS % (AUTO) 72.7 % (45.0-75.0); PLATELET COUNT 175 K/UL (150-450); RED BLOOD COUNT 3.07 M/UL (4.70-6.10)
[2019-01-26 04:31] LABS: ANION GAP 6 mmol/L (5-15); BLOOD UREA NITROGEN 23 mg/dL (7-18); CALCIUM 8.2 MG/DL (8.5-10.1); CARBON DIOXIDE 27 MMOL/L (21-32); CHLORIDE 101 MMOL/L (98-107); CREATINE KINASE 58 U/L (26-308); CREATININE 0.7 MG/DL (0.55-1.30); POTASSIUM 3.2 MMOL/L (3.5-5.1); SODIUM 134 MMOL/L (136-145)
--- NOTE | 2019-01-26 06:18 | NUR ---
NURSE NOTES: Pt's resting in bed, alert, in no acute distress. VS stable. Will continue to monitor.
--- NOTE | 2019-01-26 07:13 | NUR ---
RESPIRATORY NOTE: received pt on current vent settings, trached with portex [address], midline and secured via trach guard. no resp distress noted at this time. alarms are set and audible with ambu bag at bedside. will cont to monitor throughout the day.
--- NOTE | 2019-01-26 07:30 | NUR ---
HAND-OFF: Report given to TEDDY Jarquin.
[2019-01-26 08:04] VITALS: BP 139/79
--- NOTE | 2019-01-26 08:18 | NUR ---
NURSE NOTES: received pt in the bed, awake, vent dependent, vital signs stable, no co pain, no SOB, skin warm and dry to touch, multiple decub, dressing dry and intact, tolerate GT feeding well, bed in low position, call light within reach, HOB elevated.
[2019-01-26] MEDS: Ascorbic Acid 500mg tab ORAL SCH ×2 (08:35→17:44)
[2019-01-26] MEDS: Pantoprazole Inj IV SCH (08:35)
[2019-01-26] MEDS: Heparin 5000 units/ml inj SUBQ SCH ×2 (08:36→20:30)
--- NOTE | 2019-01-26 10:26 | Pulmonolgy Critical Care Note ---
Critical Care - Asmt/Plan Problems: (1) Acute on chronic respiratory failure (2) Left pulmonary infiltrate on CXR (3) Severe anemia (4) Pleural effusion, left (5) At high risk for aspiration (6) funtional quadriplegia (7) Feeding by G-tube (8) Protein-calorie malnutrition, severe Respiratory: monitor respiratory rate, adjust FIO2, CXR Cardiac: continue to monitor HR/BP Renal: F/U I&O, keep IV fluid, check electrolytes Infectious Disease: check cultures Gastrointestinal: continue feedings/current rate Endocrine: monitor blood sugar, check HgA1C Hematologic: monitor H/H, transfuse if hgb<8.5 Neurologic: PRN Ativan, PRN Morphine, keep patient comfortable Affect: PRN ativan Prophylaxis: Protonix, Heparin Time Spent (Minutes): 40 Notes Reviewed: air launch weapons technician, cardio, renal Discussed with: nurses, consultants, medical case managerweb content manager - Objective Last 24 Hour Vital Signs Date Time Temp Pulse Resp B/P (MAP) Pulse Ox O2 Delivery O2 Flow Rate FiO2 01/26/19 08:41 80 21 35 01/26/19 08:04 99.8 72 20 139/79 (99) 100 01/26/19 08:00 30 01/26/19 08:00 60 01/26/19 08:00 Mechanical Ventilator 01/26/19 07:10 76 19 35 01/26/19 05:00 62 20 35 01/26/19 04:00 Mechanical Ventilator 01/26/19 04:00 30 01/26/19 04:00 97.7 55 20 144/85 (104) 100 01/26/19 03:23 55 01/26/19 03:11 57 18 35 01/26/19 01:22 56 17 35 01/26/19 00:00 Mechanical Ventilator 01/26/19 00:00 52 01/26/19 00:00 97.7 54 19 146/80 (102) 100 01/25/19 22:55 54 18 35 01/25/19 21:26 55 17 35 01/25/19 20:42 162/79 01/25/19 20:00 60 01/25/19 20:00 97.9 52 18 162/79 (106) 99 01/25/19 20:00 Mechanical Ventilator 01/25/19 20:00 30 7/23/19 19:12 53 18 35 01/25/19 17:20 57 22 35 01/25/19 16:00 Mechanical Ventilator 01/25/19 16:00 97.9 61 18 153/82 (105) 99 01/25/19 16:00 30 01/25/19 16:00 60 01/25/19 15:25 59 21 40 01/25/19 13:24 56 21 40 01/25/19 12:00 60 01/25/19 12:00 30 01/25/19 12:00 98.2 56 20 147/73 (97) 99 01/25/19 12:00 Mechanical Ventilator 01/25/19 11:22 53 17 40 Status: awake Condition: critical, grave HEENT: atraumatic Neck: full ROM Heart: HR/BP stable, HR/BP unstable Abdomen: soft, active bowel sounds, feeding tube Extremities: edema Micro: Microbiology Date/Time Source Procedure Growth Status 01/23/19 13:50 Blood Blood Culture - Preliminary NO GROWTH AFTER 48 HOURS Resulted 01/23/19 13:35 Blood Blood Culture - Preliminary NO GROWTH AFTER 48 HOURS Resulted 01/23/19 23:45 Sputum Gram Stain - Final Resulted 01/23/19 23:45 Sputum Culture - Preliminary Gram Negative [place]isteo Resulted 01/23/19 13:50 Urine,Clean Catch Urine Culture - Preliminary Enterococcus Faecalis - Vre Resulted 01/23/19 14:00 Rectum VRE Culture - Final Enterococcus Faecalis - Vre Complete Critical Care - Subjective ROS Limited/Unobtainable: Yes Condition: critical EKG Rhythm: Sinus Rhythm FI02: 35 Vent Support Breath Rate: 16 Vent Support Mode: AC Vent Tidal Volume: 600 Sputum Amount: Small PEEP: 5.0 PIP: 28 Tube Feeding Amount: 30 I&O: Intake and Output 01/25/19 01/26/19 19:00 07:00 Intake Total 770 ml 445 ml Output Total 1400 ml 500 ml Balance -630 ml -55 ml Free Water 300 ml 60 ml IV Total 110 ml 55 ml Tube Feeding 360 ml 330 ml Output Urine Total 1400 ml 500 ml # Bowel Movements 1 Labs: Laboratory Tests Test 01/25/19 11:50 01/26/19 03:47 Vancomycin Level Trough 19.7 ug/mL (5.0-12.0) H White Blood Count 7.0 K/UL (4.8-10.8) Red Blood Count 3.07 M/UL (4.70-6.10) L Hemoglobin 8.8 G/DL (14.2-18.0) L Hematocrit 27.3 % (42.0-52.0) L Mean Corpuscular Volume 89 FL (80-99) Mean Corpuscular Hemoglobin 28.6 PG (27.0-31.0) Mean Corpuscular Hemoglobin Concent 32.3 G/DL (32.0-36.0) Red Cell Distribution Width 16.0 % (11.6-14.8) H Platelet Count 175 K/UL (150-450) Mean Platelet Volume 6.7 FL (6.5-10.1) Neutrophils (%) (Auto) 72.7 % (45.0-75.0) Lymphocytes (%) (Auto) 9.2 % (20.0-45.0) L Monocytes (%) (Auto) 8.3 % (1.0-10.0) Eosinophils (%) (Auto) 9.1 % (0.0-3.0) H Basophils (%) (Auto) 0.7 % (0.0-2.0) Sodium Level 134 MMOL/L (136-145) L Potassium Level 3.2 MMOL/L (3.5-5.1) L Chloride Level 101 MMOL/L (98-107) Carbon Dioxide Level 27 MMOL/L (21-32) Anion Gap 6 mmol/L (5-15) Blood Urea Nitrogen 23 mg/dL (7-18) H Creatinine 0.7 MG/DL (0.55-1.30) Estimat Glomerular Filtration Rate mL/min (>60) Glucose Level 102 MG/DL (74-106) Calcium Level 8.2 MG/DL (8.5-10.1) L Total Creatine Kinase 58 U/L (26-308) Dennis Woodall MD Jan 26, 2019 10:26
--- NOTE | 2019-01-26 11:21 | NUR ---
CULINARY ARTS INSTRUCTORCUTTER TENDER SI: RESP FAILURE TRACH/VENT DEPENDENT,HYPOKALEMIA T. 97.7 HR 54 RR 20 B/P 144/85 AC 16 TV 600 FIO2 35% PEEP 5 NA 134 K 3.2 BUN 23 STOOL OCCULT BLOOD + IS: DAPTOMYCIN IV MEROPENEM IV PROTONIX IV HEPARIN SUBC STEP DOWN STATUS
[2019-01-26 12:00] VITALS: BP 150/84
--- NOTE | 2019-01-26 12:06 | NUR ---
RD ASSESSMENT & RECOMMENDATIONS SEE CARE ACTIVITY FOR COMPLETE ASSESSMENT DAILY ESTIMATED NEEDS: Needs based on Underweight, critical care, wounds, 58.5kg 30-35 kcals/kg 6945-3693 total kcals 1.5-2 g protein/kg 88-117 g total protein 25-30 mL/kg 0469-2856 total fluid mLs NUTRITION DIAGNOSIS: 1) Increased kcal and protein needs r/t wound healing and underweight status as evidenced by pt w/ multiple advanced wounds refer to wound care eval, and generalized severe wasting @72% of [place] body Weight. 2) Swallowing difficulty r/t respiratory failure as evidenced by pt is trach/ vent dep and GT dependent. CURRENT TF: Jevity 1.2 @30 ENTERAL NUTRITION RECOMMENDATIONS: TF change to OSMOLITE 1.5 @57ml/hr x24 hrs + Prosource x1 to provide 1368ml, 2052 kcal, 86g + 11g pro, 1042ml free H2O - Rec TF change to Osmolite 1.5 as per TF COMPUTER ANALYST. - Start @37ml/hr x6 hrs. Advance as tolerated 10ml/hr q4-6 hrs to goal. - Add Prosource x1 daily to better meet est pro needs - Flush per HOB over 30 degrees. ---- ADDITIONAL RECOMMENDATIONS: PER SNF: HT=72inches (current BMI of 22 appears inaccurate) WOUND CARE: add WIL BID + VIT C 250mg BID Check lytes daily, replete as needed Weekly calibrated bed scale wts - -
[2019-01-26] MEDS: DAPTOmycin 250 MG in NS 55 ML IV SCH (13:46)
--- NOTE | 2019-01-26 14:30 | Infectious Diseases Prog Note ---
Assessment/Plan Assessment/Plan Assessment: Sepsis- likely 2ry to UTI- r.o PNA -01/25 CXR: Bilateral infiltrates versus edema, left greater than right, stable on the left but somewhat increased on the right over 2 days. Suggestion of some improvement of pleural fluid on the left -u/a wbc 5-10, nit neg, leuk +3; ucx >100kVRE (S Linezolid, amp, nitrofurantoin) -CXR: Left lung infiltrates versus edema, left-sided pleural effusion, and volume loss. Appearance of this is similar to prior study of 11/22/2018. Right lung interstitial opacities, may reflect infiltrates or edema. No overall better aeration of the right lung compared to the previous study. -sp cx GNR -Bcx : NTD Afebrile Leukocytosis, SP hx of ESBL Proteus UTI and bacteremia 11/2018 chronic respiratory failure trach/vent dependent functional quadriplegia malnutrition multiple decubiti ulcers hx of PNA dysphagia s/p GT Zosyn allergy (received 1 dose of Ertapenem back in November 2018) Plan: -Continue Daptomycin #2 for VRE UTI -Continue Meropenem #3 (abx d #4) pending cultures -01/25 SP IV Vancomycin #3 -01/24 SP Amikacin #1 -01/23 SP Gentamycin -f/u cx -Monitor CBC/CMP, temperatures -aspiration precautions -trach/GT care -wound care per hospital protocol Thank you for this consultation. Will continue to follow along with you. Discussed with RN Subjective Allergies: Coded Allergies: NSAIDS (NON-STEROIDAL ANTI-INFLAMMA (Unverified Allergy, Unknown, 11/27/18) PIPERACILLIN (Unverified Allergy, Unknown, 01/25/19) tolerates carbapenem TAZOBACTAM (Unverified Allergy, Unknown, 11/27/18) Uncoded Allergies: NSAID (Allergy, Unknown, 09/14/18) Subjective afebrile no leukocytosis Bcx NTD Objective Vital Signs Last 24 Hour Vital Signs Date Time Temp Pulse Resp B/P (MAP) Pulse Ox O2 Delivery O2 Flow Rate FiO2 01/26/19 12:33 61 16 35 01/26/19 12:00 98.2 63 18 150/84 (106) 99 01/26/19 12:00 64 01/26/19 12:00 30 01/26/19 12:00 Mechanical Ventilator 01/26/19 10:45 57 20 35 01/26/19 08:41 80 21 35 01/26/19 08:04 99.8 72 20 139/79 (99) 100 01/26/19 08:00 30 01/26/19 08:00 60 01/26/19 08:00 Mechanical Ventilator 01/26/19 07:10 76 19 35 01/26/19 05:00 62 20 35 01/26/19 04:00 Mechanical Ventilator 01/26/19 04:00 30 01/26/19 04:00 97.7 55 20 144/85 (104) 100 01/26/19 03:23 55 01/26/19 03:11 57 18 35 01/26/19 01:22 56 17 35 01/26/19 00:00 Mechanical Ventilator 01/26/19 00:00 52 01/26/19 00:00 97.7 54 19 146/80 (102) 100 01/25/19 22:55 54 18 35 01/25/19 21:26 55 17 35 01/25/19 20:42 162/79 01/25/19 20:00 60 01/25/19 20:00 97.9 52 18 162/79 (106) 99 01/25/19 20:00 Mechanical Ventilator 01/25/19 20:00 30 01/25/19 19:12 53 18 35 01/25/19 17:20 57 22 35 01/25/19 16:00 Mechanical Ventilator 01/25/19 16:00 97.9 61 18 153/82 (105) 99 01/25/19 16:00 30 01/25/19 16:00 60 01/25/19 15:25 59 21 40 Height (Feet): 5 Height (Inches): 3.00 Weight (Pounds): 125 Objective General Appearance: other - unresponsive, Chronically Ill Head: normocephalic, atraumatic Eyes: bilateral eye other - dry, eyes closed ENT: dry mucus membranes Neck: tracheotomy Respiratory: lungs clear, normal breath sounds, decreased breath sounds Cardiovascular regular rate, rhythm Gastrointestinal: other - g tube, decreased bowel sounds, scaphoid Genitourinary: other - diaper Musculoskeletal: other - contractures, atrophy Skin: Decubitus/Ulcer - all dependent areas Microbiology Date/Time Source Procedure Growth Status 01/23/19 23:45 Sputum Gram Stain - Final Resulted 01/23/19 23:45 Sputum Culture - Preliminary Gram Negative Aristeo Resulted Laboratory Tests Test 01/26/19 03:47 White Blood Count 7.0 K/UL (4.8-10.8) Red Blood Count 3.07 M/UL (4.70-6.10) L Hemoglobin 8.8 G/DL (14.2-18.0) L Hematocrit 27.3 % (42.0-52.0) L Mean Corpuscular Volume 89 FL (80-99) Mean Corpuscular Hemoglobin 28.6 PG (27.0-31.0) Mean Corpuscular Hemoglobin Concent 32.3 G/DL (32.0-36.0) Red Cell Distribution Width 16.0 % (11.6-14.8) H Platelet Count 175 K/UL (150-450) Mean Platelet Volume 6.7 FL (6.5-10.1) Neutrophils (%) (Auto) 72.7 % (45.0-75.0) Lymphocytes (%) (Auto) 9.2 % (20.0-45.0) L Monocytes (%) (Auto) 8.3 % (1.0-10.0) Eosinophils (%) (Auto) 9.1 % (0.0-3.0) H Basophils (%) (Auto) 0.7 % (0.0-2.0) Sodium Level 134 MMOL/L (136-145) L Potassium Level 3.2 MMOL/L (3.5-5.1) L Chloride Level 101 MMOL/L (98-107) Carbon Dioxide Level 27 MMOL/L (21-32) Anion Gap 6 mmol/L (5-15) Blood Urea Nitrogen 23 mg/dL (7-18) H Creatinine 0.7 MG/DL (0.55-1.30) Estimat Glomerular Filtration Rate mL/min (>60) Glucose Level 102 MG/DL (74-106) Calcium Level 8.2 MG/DL (8.5-10.1) L Total Creatine Kinase 58 U/L (26-308) Current Medications Medications (Trade) Dose Ordered Sig/Margarette Route PRN Reason Start Time Stop Time Status Last Admin Dose Admin Acetaminophen (Tylenol) 650 mg Q4H PRN ORAL FEVER 01/23/19 16:15 02/22/19 16:14 01/24/19 17:39 Albuterol/ Ipratropium (Albuterol/ Ipratropium) 3 ml Q4H PRN HHN Shortness of Breath 01/23/19 16:15 01/28/19 16:14 Ascorbic Acid (Vitamin C) 250 mg TWICE A DAY ORAL 01/24/19 18:00 02/23/19 17:59 01/26/19 08:35 Clonidine HCl (Catapres Tab) 0.1 mg Q6H PRN GT For High Blood Pressure 01/24/19 23:00 02/23/19 21:44 Daptomycin 250 mg/ Sodium Chloride 55 ml @ 100 mls/hr Q24H IV 01/25/19 14:00 02/01/19 13:59 01/26/19 13:46 Dextrose (Dextrose 50%) 25 ml Q30M PRN IV Hypoglycemia 01/23/19 16:15 02/22/19 16:14 Dextrose (Dextrose 50%) 50 ml Q30M PRN IV Hypoglycemia 01/23/19 16:15 02/22/19 16:14 Heparin Sodium (Porcine) (Heparin 5000 units/ml) 5,000 units EVERY 12 HOURS SUBQ 01/23/19 21:00 02/22/19 20:59 01/26/19 08:36 Hydralazine HCl (Apresoline) 50 mg Q6HR PRN ORAL For High Blood Pressure 01/24/19 23:00 02/23/19 22:14 01/25/19 20:42 Lorazepam (Ativan 2mg/ml 1ml) 2 mg Q2H PRN IV For Anxiety 01/23/19 16:15 01/30/19 16:14 Meropenem 1 gm/ Sodium Chloride 55 ml @ 110 mls/hr Q12HR@0300,1500 IVPB 01/24/19 15:00 01/29/19 14:59 01/26/19 03:54 Morphine Sulfate (Morphine Sulfate) 4 mg Q4H PRN IVP Severe Pain (Pain Scale 7-10) 01/23/19 16:15 01/30/19 16:14 Ondansetron HCl (Zofran) 4 mg Q6H PRN IVP Nausea & Vomiting 01/23/19 16:15 02/22/19 16:14 Pantoprazole (Protonix) 40 mg DAILY IV 01/24/19 09:00 02/23/19 08:59 01/26/19 08:35 Polyethylene Glycol (Miralax) 17 gm DAILYPRN PRN ORAL Constipation 01/23/19 16:15 02/22/19 16:14 Lilly Dorantes M.D. Jan 26, 2019 14:30
--- NOTE | 2019-01-26 15:15 | NUR ---
*-* INSURANCE *-* ALL CLINICALS AND REVIEWS HAVE BEEN FAXED: AJ GUZMAN# [id number] [facility]: KIM An- [phone] F- [phone]...REVIEW/CLINICAL
--- NOTE | 2019-01-26 15:50 | Surgery Progress Note ---
Surgery Progress Note Subjective Additional Comments no acute events Objective Last 24 Hour Vital Signs Date Time Temp Pulse Resp B/P (MAP) Pulse Ox O2 Delivery O2 Flow Rate FiO2 01/26/19 14:40 86 19 35 01/26/19 12:33 61 16 35 01/26/19 12:00 98.2 63 18 150/84 (106) 99 01/26/19 12:00 64 01/26/19 12:00 30 01/26/19 12:00 Mechanical Ventilator 01/26/19 10:45 57 20 35 01/26/19 08:41 80 21 35 01/26/19 08:04 99.8 72 20 139/79 (99) 100 01/26/19 08:00 30 01/26/19 08:00 60 01/26/19 08:00 Mechanical Ventilator 01/26/19 07:10 76 19 35 01/26/19 05:00 62 20 35 01/26/19 04:00 Mechanical Ventilator 01/26/19 04:00 30 01/26/19 04:00 97.7 55 20 144/85 (104) 100 01/26/19 03:23 55 01/26/19 03:11 57 18 35 01/26/19 01:22 56 17 35 01/26/19 00:00 Mechanical Ventilator 01/26/19 00:00 52 01/26/19 00:00 97.7 54 19 146/80 (102) 100 01/25/19 22:55 54 18 35 01/25/19 21:26 55 17 35 01/25/19 20:42 162/79 01/25/19 20:00 60 01/25/19 20:00 97.9 52 18 162/79 (106) 99 01/25/19 20:00 Mechanical Ventilator 01/25/19 20:00 30 01/25/19 19:12 53 18 35 01/25/19 17:20 57 22 35 01/25/19 16:00 Mechanical Ventilator 01/25/19 16:00 97.9 61 18 153/82 (105) 99 01/25/19 16:00 30 01/25/19 16:00 60 I&O Intake and Output 01/25/19 01/26/19 19:00 07:00 Intake Total 770 ml 445 ml Output Total 1400 ml 500 ml Balance -630 ml -55 ml Free Water 300 ml 60 ml IV Total 110 ml 55 ml Tube Feeding 360 ml 330 ml Output Urine Total 1400 ml 500 ml # Bowel Movements 1 Dressing: saturated Wound: other Drains: other Cardiovascular: RSR Respiratory: decreased breath sounds Abdomen: soft, present bowel sounds, non-distended Extremities: no cyanosis Laboratory Tests Test 01/26/19 03:47 White Blood Count 7.0 K/UL (4.8-10.8) Red Blood Count 3.07 M/UL (4.70-6.10) L Hemoglobin 8.8 G/DL (14.2-18.0) L Hematocrit 27.3 % (42.0-52.0) L Mean Corpuscular Volume 89 FL (80-99) Mean Corpuscular Hemoglobin 28.6 PG (27.0-31.0) Mean Corpuscular Hemoglobin Concent 32.3 G/DL (32.0-36.0) Red Cell Distribution Width 16.0 % (11.6-14.8) H Platelet Count 175 K/UL (150-450) Mean Platelet Volume 6.7 FL (6.5-10.1) Neutrophils (%) (Auto) 72.7 % (45.0-75.0) Lymphocytes (%) (Auto) 9.2 % (20.0-45.0) L Monocytes (%) (Auto) 8.3 % (1.0-10.0) Eosinophils (%) (Auto) 9.1 % (0.0-3.0) H Basophils (%) (Auto) 0.7 % (0.0-2.0) Sodium Level 134 MMOL/L (136-145) L Potassium Level 3.2 MMOL/L (3.5-5.1) L Chloride Level 101 MMOL/L (98-107) Carbon Dioxide Level 27 MMOL/L (21-32) Anion Gap 6 mmol/L (5-15) Blood Urea Nitrogen 23 mg/dL (7-18) H Creatinine 0.7 MG/DL (0.55-1.30) Estimat Glomerular Filtration Rate mL/min (>60) Glucose Level 102 MG/DL (74-106) Calcium Level 8.2 MG/DL (8.5-10.1) L Total Creatine Kinase 58 U/L (26-308) Plan Problems: (1) funtional quadriplegia (2) Sepsis Assessment & Plan: leukocytosis - resolved hypotension - improved tachycardia improving overall on IV abx trend labs (3) Chronic respiratory failure (4) Pneumonia (5) Acute on chronic respiratory failure (6) Vegetative endocarditis (7) Feeding by G-tube (8) Protein-calorie malnutrition, severe Assessment & Plan: DAILY ESTIMATED NEEDS: Needs based on Underweight, critical care, wounds, 58.5kg 30-35 kcals/kg 4905-5770 total kcals 1.25-2 g protein/kg 73-117 g total protein 25-30 mL/kg 2407-6974 total fluid mLs NUTRITION DIAGNOSIS: 1) Increased kcal and protein needs r/t wound healing and underweight status as evidenced by pt w/ multiple advanced wounds per photos, pending eval, and generalized severe wasting @72% of [place] body Weight. 2) Swallowing difficulty r/t respiratory failure as evidenced by pt is trach/ vent dep and GT dependent. CURRENT TF: Jevity 1.2 @30 (meets <60% est needs) ENTERAL NUTRITION RECOMMENDATIONS-->> TF change to OSMOLITE 1.5 @57ml/hr x24 hrs + Prosource x1 to provide 1368ml, 2052 kcal, 86g + 11g pro, 1042ml free H2O - Rec TF change to Osmolite 1.5 as per TF ASSISTANT PROFESSOR [employer] SP[employer]. - Start @37ml/hr x6 hrs. Advance as tolerated 10ml/hr q4-6 hrs to goal. - Add Prosource x1 daily to better meet est pro needs - Flush per MD. HOB over 30 degrees. ADDITIONAL RECOMMENDATIONS: PER SNF: HT=72inches (current BMI of 24 appears inaccurate) WOUND CARE: add WIL BID + VIT C 250mg BID (f/up w/ MD eval) Check lytes daily, replete as needed Weekly calibrated bed scale wts (9) At high risk for aspiration (10) ATN (acute tubular necrosis) (11) Severe anemia (12) Encephalopathy acute (13) Pyuria (14) Left pulmonary infiltrate on CXR (15) Pleural effusion, left (16) Decubitus skin ulcer Assessment & Plan: Pt presented on admission with contractures and multiple pressure injuries.Skin integrity is dry and scaly. Pt noted to have scattered small partial thickness wounds to R and L scapulae. Pt also observed to be scratching at sites of wounds. (proximal)(L)1.2cm x (W)1.5cm. Base of wound moist and viable.Edges flat and adherent to base of wound erythema with scattered smaller scratch hunter periwound.(Distal)(L)1.7cm x(W)2cm Base of wound moist and viable. Edges flat and adherent to base of wound. Small amt sanguineous exudate noted. Erythema with scattered scratch hunter periwound. Non-blanchable erythema with shearing R buttocks. Surrounding Hyperpigmentation sacrum and l buttocks.Moisture intertrigo noted to R and L groin. Small amt sanguineous exudate noted from both R and L groin folds. Full Thickness wound noted to L hip Base of wound indurated ,maroon in colour with small opening centrally oozing small amt sanguineous exudate.Non- blanchable erythema without elevation in skin temp periwound. Inferior to L hip at L greater trochanteric Full thickness pressure injury with undermining. Base of wound cade with biofilm. Bone is palpable.Small amt non- odorous serous exudate noted.(L)2cm x (W)2.6cm x(D)0.5cm,undermining 2-3 by 4.6cm @3o'clock. Periwound without erythema or induration. Full thickness pressure injury with undermining R trochanter. Base of wound is 60% viable ,40% slough.Periwound without erythema or induration.Small amt non- odorous serous exudate noted.(L)2.3cm x (W)3.7cm x (D)0.2cm,undermining 9-3 by 2.1cm @2o'clock. Scattered small dry scabs noted to R and L Tibia. Full thickness pressure injury R Hallux. Base of wound 2% viable with 75% slough ,Macerated borders,Erythema without induration periwound.(L)1.1cm x (W)0.9cm. Multiple partial thickness wounds and dry scabs that are in close proximity noted to dorsal R foot. An area measuring (L)6.5cm x (W)5cm. Dry eschar noted to matrix of R st metatarsal. Full thickness wound dorso/flexor L foot .Base of wound 80% viable ,10% slough, 10% necrotic. Small amt sanguineous exudate noted. (L)1.2cm x (W)3cm x (D)0.2cm Full thickness pressure injury noted to lateral/plantar R foot. Base of wound moist with Biofilm. Macerated borders. Erythema without induration or elevation in skin temp periwound.(L)0.5cm x (W)1.5cm. Full thickness wound L hallux.Base of wound 90% viable with 10% slough. Borders of wound macerated and erythematous. Periwound fluctuant.Small amt sanguineous exudate noted.(L)1.2cm x (W)1.5cm. Full thickness wound L heel Base of wound 80% viable,20% slough noted. Bone is palpable. Edges adherent and flat. Small amt sanguineous exudate noted. Non- blanchable erythema with fluctuance noted periwound. (L)6.5cm x (W)4.6cm x (D) 0.5cm). Ulcers noted to L 2nd ,3rd and 4th metatarsals. L 2nd metatarsal ulcer-Base of wound 100% soft necrosis (L)0.5cm x (W)1cm. L 3rd metatarsal. Base of wound 90 % necrotic ,10% viability.(L)0.5cm x (W)0.3cm. L 4th metatarsal wound Moist with Biofilm (L)0.7cm x (W)0.5cm x (D)0.2cm. Full thickness wound lateral L foot. Base of wound moist and viable. Borders are macerated. Small amt sanguineous exudate noted.(L)0.8cm x (W)0.9cm x (D) 0.2cm. Tx.Plan: Cleanse wound R trochanter with saline. Apply Therahoney,Apply Cavilon Periwound. Cover with Optifoam drsg. Change every 3 days and prn. Cleanse wounds L hip and L trochanter with Saline. Apply Therahoney. Apply Cavilon periwound .Cover with Optifoam drsg every 3 days and prn. Cleanse wounds L scapula with Saline. Apply TheraHoney. Apply Cavilon periwound.Cover with Optifoam drsg every 3 days and prn. Apply Triad paste to sacrum ,groin and scrotum with each Incontinence care. Cleanse wounds R and L foot with Saline. Apply TheraHoney. Cover wounds with Abd pads and wrap both feet with Kerlix gauze every 3 days and prn. Air Fluidized mattress. Reposition at least every 2hours or as tolerated. Place pillow between knees. Off-load heels with pillow. Stanislav Avelar Jan 26, 2019 15:50
[2019-01-26 16:00] VITALS: BP 152/81
--- NOTE | 2019-01-26 18:08 | Internal Med Progress Note ---
Subjective Date of Service: Jan 26, 2019 Physician Name Bunny Morocho Attending Physician Danis Wolfe MD Current Medications Medications (Trade) Dose Ordered Sig/Margarette Route PRN Reason Start Time Stop Time Status Last Admin Dose Admin Acetaminophen (Tylenol) 650 mg Q4H PRN ORAL FEVER 01/23/19 16:15 02/22/19 16:14 01/24/19 17:39 Albuterol/ Ipratropium (Albuterol/ Ipratropium) 3 ml Q4H PRN HHN Shortness of Breath 01/23/19 16:15 01/28/19 16:14 Ascorbic Acid (Vitamin C) 250 mg TWICE A DAY ORAL 01/24/19 18:00 02/23/19 17:59 01/26/19 17:44 Clonidine HCl (Catapres Tab) 0.1 mg Q6H PRN GT For High Blood Pressure 01/24/19 23:00 02/23/19 21:44 Daptomycin 250 mg/ Sodium Chloride 55 ml @ 100 mls/hr Q24H IV 01/25/19 14:00 02/01/19 13:59 01/26/19 13:46 Dextrose (Dextrose 50%) 25 ml Q30M PRN IV Hypoglycemia 01/23/19 16:15 02/22/19 16:14 Dextrose (Dextrose 50%) 50 ml Q30M PRN IV Hypoglycemia 01/23/19 16:15 02/22/19 16:14 Heparin Sodium (Porcine) (Heparin 5000 units/ml) 5,000 units EVERY 12 HOURS SUBQ 01/23/19 21:00 02/22/19 20:59 01/26/19 08:36 Hydralazine HCl (Apresoline) 50 mg Q6HR PRN ORAL For High Blood Pressure 01/24/19 23:00 02/23/19 22:14 01/25/19 20:42 Lorazepam (Ativan 2mg/ml 1ml) 2 mg Q2H PRN IV For Anxiety 01/23/19 16:15 01/30/19 16:14 Meropenem 1 gm/ Sodium Chloride 55 ml @ 110 mls/hr Q12HR@0300,1500 IVPB 01/24/19 15:00 01/29/19 14:59 01/26/19 15:48 Morphine Sulfate (Morphine Sulfate) 4 mg Q4H PRN IVP Severe Pain (Pain Scale 7-10) 01/23/19 16:15 01/30/19 16:14 Ondansetron HCl (Zofran) 4 mg Q6H PRN IVP Nausea & Vomiting 01/23/19 16:15 02/22/19 16:14 Pantoprazole (Protonix) 40 mg DAILY IV 01/24/19 09:00 02/23/19 08:59 01/26/19 08:35 Polyethylene Glycol (Miralax) 17 gm DAILYPRN PRN ORAL Constipation 01/23/19 16:15 02/22/19 16:14 Allergies: Coded Allergies: NSAIDS (NON-STEROIDAL ANTI-INFLAMMA (Unverified Allergy, Unknown, 11/27/18) PIPERACILLIN (Unverified Allergy, Unknown, 01/25/19) tolerates carbapenem TAZOBACTAM (Unverified Allergy, Unknown, 11/27/18) Uncoded Allergies: NSAID (Allergy, Unknown, 09/14/18) ROS Limited/Unobtainable: Yes Subjective 83 YO M admitted with hypotension and altered mental status. Now UTI and pneumonia. Cover for Int med-Dr Wolfe. ARUN Objective Last Vital Signs Date Time Temp Pulse Resp B/P (MAP) Pulse Ox O2 Delivery O2 Flow Rate FiO2 01/26/19 17:06 59 17 35 01/26/19 16:00 Mechanical Ventilator 01/26/19 16:00 98.6 152/81 (104) 98 01/23/19 17:47 15.0 Laboratory Tests Test 01/26/19 03:47 White Blood Count 7.0 K/UL (4.8-10.8) Red Blood Count 3.07 M/UL (4.70-6.10) L Hemoglobin 8.8 G/DL (14.2-18.0) L Hematocrit 27.3 % (42.0-52.0) L Mean Corpuscular Volume 89 FL (80-99) Mean Corpuscular Hemoglobin 28.6 PG (27.0-31.0) Mean Corpuscular Hemoglobin Concent 32.3 G/DL (32.0-36.0) Red Cell Distribution Width 16.0 % (11.6-14.8) H Platelet Count 175 K/UL (150-450) Mean Platelet Volume 6.7 FL (6.5-10.1) Neutrophils (%) (Auto) 72.7 % (45.0-75.0) Lymphocytes (%) (Auto) 9.2 % (20.0-45.0) L Monocytes (%) (Auto) 8.3 % (1.0-10.0) Eosinophils (%) (Auto) 9.1 % (0.0-3.0) H Basophils (%) (Auto) 0.7 % (0.0-2.0) Sodium Level 134 MMOL/L (136-145) L Potassium Level 3.2 MMOL/L (3.5-5.1) L Chloride Level 101 MMOL/L (98-107) Carbon Dioxide Level 27 MMOL/L (21-32) Anion Gap 6 mmol/L (5-15) Blood Urea Nitrogen 23 mg/dL (7-18) H Creatinine 0.7 MG/DL (0.55-1.30) Estimat Glomerular Filtration Rate mL/min (>60) Glucose Level 102 MG/DL (74-106) Calcium Level 8.2 MG/DL (8.5-10.1) L Total Creatine Kinase 58 U/L (26-308) Microbiology Date/Time Source Procedure Growth Status 01/23/19 23:45 Sputum Gram Stain - Final Resulted 01/23/19 23:45 Sputum Culture - Preliminary Gram Negative Aristeo Resulted Intake and Output 01/25/19 01/26/19 19:00 07:00 Intake Total 770 ml 445 ml Output Total 1400 ml 500 ml Balance -630 ml -55 ml Free Water 300 ml 60 ml IV Total 110 ml 55 ml Tube Feeding 360 ml 330 ml Output Urine Total 1400 ml 500 ml # Bowel Movements 1 Objective PHYSICAL EXAMINATION: GENERAL: The patient is a well-developed and well-nourished male, who is intubated and sedated. HEENT: Eyes, pupils are equal and responsive to light and accommodation. Extraocular movements are intact. NECK: Supple without lymphadenopathy. CHEST: Mech vent; Lungs with exp wheezes and bibasilar rales CARDIOVASCULAR: Regular rhythm and rate. S1 and S2 are normal without murmurs, rubs, or gallops. ABDOMEN: Soft, nontender, and nondistended. Positive bowel sounds. No evidence of hepatosplenomegaly. Currently, no rebound or guarding noted. EXTREMITIES: Negative for clubbing, cyanosis, or edema. RECTAL/GENITAL: Refused. NEUROLOGICAL: Unable to assess. Assessment/Plan Assessment/Plan ASSESSMENT: This is an 83-year-old male. 1. Altered mental status. 2. Probable sepsis. 3. Hypertension. 4. Leukocytosis. 5. Pneumonia=gram neg aristeo 6. Congestive heart failure. 7. Dysphagia. 8. Ventilator dependence. 9. Functional quadriplegia. 10. History of myocardial infarction. 11. 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 Altered mental status. This may be secondary to sepsis. 2. Sepsis/hypotension. An Infectious Disease consultation has been obtained with Dr. Dorantes. The patient has been placed empirically on meropenem, amikacin, and vancomycin. Urine, blood, and sputum cultures are pending. 3. Pneumonia. A Pulmonary consultation has been obtained with Dr. Dennis Woodall. The patient has been started on meropenem, vancomycin, and amikacin as above. Sputum cultures are pending. 4. Congestive heart failure. Cardiology consultation has been obtained. 5. Dysphagia. The patient is status post G-tube placement as above. 6. Functional quadriplegia. 7. History of coronary artery disease, status post myocardial infarction. 8. Abx=meropenem and daptomycin per Bunny Rodrigues MD Jan 26, 2019 18:08
--- NOTE | 2019-01-26 19:10 | NUR ---
NURSE NOTES: Pt report received from Milka ESPINAL ARUN. pt appears to be stable. pt is alert and oriented times 1, and able to respond yes and no to simple questions. pt pupils are round and reactive to light and accommodating bilaterally, sluggish. pt is able to trach nurses moment around bed side. pt is on a trach to vent, reported settings of portex 8, AC 16, TV 600, peep 5, 30% FiO2. Satting at 100 percent, no acute signs/ symptoms of resp distress. pt is on a wait staff, SR, no acute signs symptoms of acute cardiac distress at the moment. folley patent, able to drain to gravity, no distress noted. urine appears dark/yellow. bed locked and low, bed armed, bed rails up times 3, call light with in reach. will continue plan of care.
--- NOTE | 2019-01-26 19:24 | NUR ---
HAND-OFF: Report given to PAUL ESPINAL, NO ANY DISTRESS AT THIS TIME.
[2019-01-26 20:00] VITALS: BP 154/75
--- NOTE | 2019-01-26 20:07 | NUR ---
RESPIRATORY NOTE: Received pt on AC 16, 600VT, 35%, PEEP +5. Pt is trach-dependent w/ a cuffed, Portex 8 tube. Pt alert/awake, follows commands. B/S kingsley. rhonchi/diminished, sxn small amounts of thick, pale-yellow secretions. Vent plugged into red outlet, ambubag at bedside. Pt denies SOB/chest pain at this time. Will continue plan of care.
[2019-01-27] VITALS: BP 158/85
--- NOTE | 2019-01-27 00:42 | NUR ---
HAND-OFF: Report given to Risa drying and winding supervisor RN.
--- NOTE | 2019-01-27 01:00 | NUR ---
NURSE NOTES: RECEIVED PATIENT FROM TEDDY IRIZARRY.ASLEEP NOT IN DISTRESS.WITH TRACH TO VENT TV 600 AC 16 FIO2 35% PEEP 5 WELL TOLERATED.GT FEEDING JJEVITY 1.2 at 30 cc/hr NO RESIDUAL NOTED.REPOSITIONED FOR COMFORT ORAL CARE RENDERED.
[2019-01-27 04:00] VITALS: BP 149/86
[2019-01-27 05:31] LABS: BASOPHILS % (AUTO) 0.9 % (0.0-2.0); EOSINOPHILS % (AUTO) 6.8 % (0.0-3.0); HEMATOCRIT 28.6 % (42.0-52.0); HEMOGLOBIN 9.2 G/DL (14.2-18.0); LYMPHOCYTES % (AUTO) 7.9 % (20.0-45.0); MEAN CORPUSCULAR VOLUME 89 FL (80-99); MONOCYTES % (AUTO) 10.4 % (1.0-10.0); PLATELET COUNT 152 K/UL (150-450); RED BLOOD COUNT 3.22 M/UL (4.70-6.10); RED CELL DISTRIBUTION WIDTH 16.3 % (11.6-14.8); WHITE BLOOD COUNT 7.5 K/UL (4.8-10.8)
[2019-01-27 05:54] LABS: ALANINE AMINOTRANSFERASE 13 U/L (12-78); ALBUMIN 1.7 G/DL (3.4-5.0); ALBUMIN/GLOBULIN RATIO 0.3 (1.0-2.7); ALKALINE PHOSPHATASE 82 U/L (46-116); ANION GAP 7 mmol/L (5-15); ASPARTATE AMINO TRANSFERASE 16 U/L (15-37); BILIRUBIN,TOTAL 0.4 MG/DL (0.2-1.0); BLOOD UREA NITROGEN 21 mg/dL (7-18); CALCIUM 8.1 MG/DL (8.5-10.1); CARBON DIOXIDE 24 MMOL/L (21-32); CHLORIDE 102 MMOL/L (98-107); CREATININE 0.9 MG/DL (0.55-1.30); SODIUM 133 MMOL/L (136-145)
[2019-01-27] MEDS: Meropenem 1 GM in NS 55 ML IVPB SCH ×2 (06:00→14:30)
--- NOTE | 2019-01-27 06:50 | NUR ---
RESPIRATORY NOTE: Received pt trach to vent with settings: AC 16-600ml-35%FiO2-peep 5. Pt is trach dependent with cuffed, Portex size 8.8, secured by trach tie and trach guard. Pt is awake, alert, follows simple commands. Tom rhonchi diminished B/S heard upon auscultation, suctioned minimal amounts of thick white chen secretions without incidents. Alarms are set and audible, vent is plugged into the red outlet, ambu bag is at bedside. Vent circuits and sxn tubing are patent and out of the way. Pt is resting comfortably in bed, no SOB or resp distress noted at this time. Will continue to monitor pt.
--- NOTE | 2019-01-27 07:18 | NUR ---
NURSE NOTES: Received report from TEDDY Lord. Patient is resting in bed, in stable condition. No s/sx of SOB, breathing is even and unlabored, Vent settings on at prescribed settings. Bed is in lowest position, brakes engaged. Call light is kept within easy reach. Will continue to monitor patient.
[2019-01-27 08:00] VITALS: BP 157/79
[2019-01-27] MEDS: Pantoprazole Inj IV SCH (08:04)
[2019-01-27] MEDS: Ascorbic Acid 500mg tab ORAL SCH ×2 (08:04→17:20)
[2019-01-27] MEDS: Heparin 5000 units/ml inj SUBQ SCH ×2 (08:05→21:00)
--- NOTE | 2019-01-27 10:24 | Infectious Diseases Prog Note ---
Assessment/Plan Assessment/Plan Assessment: Sepsis- likely 2ry to UTI- r.o PNA -01/25 CXR: Bilateral infiltrates versus edema, left greater than right, stable on the left but somewhat increased on the right over 2 days. Suggestion of some improvement of pleural fluid on the left -u/a wbc 5-10, nit neg, leuk +3; ucx >100kVRE (S Linezolid, amp, nitrofurantoin) -CXR: Left lung infiltrates versus edema, left-sided pleural effusion, and volume loss. Appearance of this is similar to prior study of 11/22/2018. Right lung interstitial opacities, may reflect infiltrates or edema. No overall better aeration of the right lung compared to the previous study. -sp cx GNR -Bcx : NTD Afebrile Leukocytosis, SP hx of ESBL Proteus UTI and bacteremia 11/2018 chronic respiratory failure trach/vent dependent functional quadriplegia malnutrition multiple decubiti ulcers hx of PNA dysphagia s/p GT Zosyn allergy (received 1 dose of Ertapenem back in November 2018) Plan: -Continue Daptomycin #3 for VRE UTI -Continue Meropenem #4 (abx d #5) pending cultures -01/25 SP IV Vancomycin #3 -01/24 SP Amikacin #1 -01/23 SP Gentamycin -f/u cx -Monitor CBC/CMP, temperatures -aspiration precautions -trach/GT care -wound care per hospital protocol Thank you for this consultation. Will continue to follow along with you. Discussed with RN Subjective Allergies: Coded Allergies: NSAIDS (NON-STEROIDAL ANTI-INFLAMMA (Unverified Allergy, Unknown, 11/27/18) PIPERACILLIN (Unverified Allergy, Unknown, 01/25/19) tolerates carbapenem TAZOBACTAM (Unverified Allergy, Unknown, 11/27/18) Uncoded Allergies: NSAID (Allergy, Unknown, 09/14/18) Subjective afebrile no leukocytosis Bcx NTD Objective Vital Signs Last 24 Hour Vital Signs Date Time Temp Pulse Resp B/P (MAP) Pulse Ox O2 Delivery O2 Flow Rate FiO2 01/27/19 08:40 72 17 35 01/27/19 08:00 98.1 64 21 157/79 (105) 100 01/27/19 08:00 65 01/27/19 08:00 Mechanical Ventilator 01/27/19 08:00 35 01/27/19 06:50 63 18 35 01/27/19 05:07 71 18 35 01/27/19 04:00 69 01/27/19 04:00 Mechanical Ventilator 01/27/19 04:00 98.7 73 18 149/86 (107) 98 01/27/19 04:00 35 01/27/19 02:51 64 18 35 01/27/19 00:45 67 19 35 01/27/19 00:00 99.1 61 20 158/85 (109) 99 01/27/19 00:00 Mechanical Ventilator 01/27/19 00:00 30 01/26/19 23:35 74 01/26/19 22:52 67 20 35 01/26/19 21:17 61 17 35 01/26/19 20:05 68 18 35 01/26/19 20:00 Mechanical Ventilator 01/26/19 20:00 30 01/26/19 20:00 99.3 68 21 154/75 (101) 98 01/26/19 19:46 74 01/26/19 17:06 59 17 35 01/26/19 16:00 30 01/26/19 16:00 Mechanical Ventilator 01/26/19 16:00 65 01/26/19 16:00 98.6 63 18 152/81 (104) 98 01/26/19 14:40 86 19 35 01/26/19 12:33 61 16 35 01/26/19 12:00 98.2 63 18 150/84 (106) 99 01/26/19 12:00 64 01/26/19 12:00 30 01/26/19 12:00 Mechanical Ventilator 01/26/19 10:45 57 20 35 Height (Feet): 5 Height (Inches): 3.00 Weight (Pounds): 125 Objective General Appearance: other - unresponsive, Chronically Ill Head: normocephalic, atraumatic Eyes: bilateral eye other - dry, eyes closed ENT: dry mucus membranes Neck: tracheotomy Respiratory: lungs clear, normal breath sounds, decreased breath sounds Cardiovascular regular rate, rhythm Gastrointestinal: other - g tube, decreased bowel sounds, scaphoid Genitourinary: other - diaper Musculoskeletal: other - contractures, atrophy Skin: Decubitus/Ulcer - all dependent areas Laboratory Tests Test 7/25/19 03:41 White Blood Count 7.5 K/UL (4.8-10.8) Red Blood Count 3.22 M/UL (4.70-6.10) L Hemoglobin 9.2 G/DL (14.2-18.0) L Hematocrit 28.6 % (42.0-52.0) L Mean Corpuscular Volume 89 FL (80-99) Mean Corpuscular Hemoglobin 28.6 PG (27.0-31.0) Mean Corpuscular Hemoglobin Concent 32.3 G/DL (32.0-36.0) Red Cell Distribution Width 16.3 % (11.6-14.8) H Platelet Count 152 K/UL (150-450) Mean Platelet Volume 6.6 FL (6.5-10.1) Neutrophils (%) (Auto) 74.0 % (45.0-75.0) Lymphocytes (%) (Auto) 7.9 % (20.0-45.0) L Monocytes (%) (Auto) 10.4 % (1.0-10.0) H Eosinophils (%) (Auto) 6.8 % (0.0-3.0) H Basophils (%) (Auto) 0.9 % (0.0-2.0) Sodium Level 133 MMOL/L (136-145) L Potassium Level 4.0 MMOL/L (3.5-5.1) Chloride Level 102 MMOL/L (98-107) Carbon Dioxide Level 24 MMOL/L (21-32) Anion Gap 7 mmol/L (5-15) Blood Urea Nitrogen 21 mg/dL (7-18) H Creatinine 0.9 MG/DL (0.55-1.30) Estimat Glomerular Filtration Rate mL/min (>60) Glucose Level 94 MG/DL (74-106) Calcium Level 8.1 MG/DL (8.5-10.1) L Total Bilirubin 0.4 MG/DL (0.2-1.0) Aspartate Amino Transf (AST/SGOT) 16 U/L (15-37) Alanine Aminotransferase (ALT/SGPT) 13 U/L (12-78) Alkaline Phosphatase 82 U/L (46-116) Total Protein 7.7 G/DL (6.4-8.2) Albumin 1.7 G/DL (3.4-5.0) L Globulin 6.0 g/dL Albumin/Globulin Ratio 0.3 (1.0-2.7) L Current Medications Medications (Trade) Dose Ordered Sig/Margarette Route PRN Reason Start Time Stop Time Status Last Admin Dose Admin Acetaminophen (Tylenol) 650 mg Q4H PRN ORAL FEVER 01/23/19 16:15 02/22/19 16:14 01/24/19 17:39 Albuterol/ Ipratropium (Albuterol/ Ipratropium) 3 ml Q4H PRN HHN Shortness of Breath 01/23/19 16:15 01/28/19 16:14 Ascorbic Acid (Vitamin C) 250 mg TWICE A DAY ORAL 01/24/19 18:00 02/23/19 17:59 01/27/19 08:04 Clonidine HCl (Catapres Tab) 0.1 mg Q6H PRN GT For High Blood Pressure 01/24/19 23:00 02/23/19 21:44 Daptomycin 250 mg/ Sodium Chloride 55 ml @ 100 mls/hr Q24H IV 01/25/19 14:00 02/01/19 13:59 01/26/19 13:46 Dextrose (Dextrose 50%) 25 ml Q30M PRN IV Hypoglycemia 01/23/19 16:15 02/22/19 16:14 Dextrose (Dextrose 50%) 50 ml Q30M PRN IV Hypoglycemia 01/23/19 16:15 02/22/19 16:14 Heparin Sodium (Porcine) (Heparin 5000 units/ml) 5,000 units EVERY 12 HOURS SUBQ 01/23/19 21:00 02/22/19 20:59 01/27/19 08:05 Hydralazine HCl (Apresoline) 50 mg Q6HR PRN ORAL For High Blood Pressure 01/24/19 23:00 02/23/19 22:14 01/25/19 20:42 Lorazepam (Ativan 2mg/ml 1ml) 2 mg Q2H PRN IV For Anxiety 01/23/19 16:15 01/30/19 16:14 Meropenem 1 gm/ Sodium Chloride 55 ml @ 110 mls/hr Q12HR@0300,1500 IVPB 01/24/19 15:00 01/29/19 14:59 01/27/19 06:00 Morphine Sulfate (Morphine Sulfate) 4 mg Q4H PRN IVP Severe Pain (Pain Scale 7-10) 01/23/19 16:15 01/30/19 16:14 Ondansetron HCl (Zofran) 4 mg Q6H PRN IVP Nausea & Vomiting 01/23/19 16:15 02/22/19 16:14 Pantoprazole (Protonix) 40 mg DAILY IV 01/24/19 09:00 02/23/19 08:59 01/27/19 08:04 Polyethylene Glycol (Miralax) 17 gm DAILYPRN PRN ORAL Constipation 01/23/19 16:15 02/22/19 16:14 Lilly Dorantes M.D. Jan 27, 2019 10:24
--- NOTE | 2019-01-27 10:46 | Pulmonolgy Critical Care Note ---
Critical Care - Asmt/Plan Problems: (1) Acute on chronic respiratory failure (2) Left pulmonary infiltrate on CXR (3) Severe anemia (4) Pleural effusion, left (5) At high risk for aspiration (6) funtional quadriplegia (7) Feeding by G-tube (8) Protein-calorie malnutrition, severe Respiratory: monitor respiratory rate, adjust FIO2, CXR Cardiac: continue to monitor HR/BP Renal: F/U I&O, keep IV fluid Infectious Disease: check cultures, continue antibiotics, other - MDr in urine Gastrointestinal: continue feedings/current rate, hold feedings Endocrine: monitor blood sugar, check TSH Hematologic: transfuse if hgb<8.5 Neurologic: PRN Ativan, keep patient comfortable Affect: PRN ativan Prophylaxis: Protonix Time Spent (Minutes): 40 Notes Reviewed: senior safety support manager, renal Discussed with: nurses, consultants, outsole caserathlete manager - Objective Last 24 Hour Vital Signs Date Time Temp Pulse Resp B/P (MAP) Pulse Ox O2 Delivery O2 Flow Rate FiO2 01/27/19 08:40 72 17 35 01/27/19 08:00 98.1 64 21 157/79 (105) 100 01/27/19 08:00 65 01/27/19 08:00 Mechanical Ventilator 01/27/19 08:00 35 01/27/19 06:50 63 18 35 01/27/19 05:07 71 18 35 01/27/19 04:00 69 01/27/19 04:00 Mechanical Ventilator 01/27/19 04:00 98.7 73 18 149/86 (107) 98 01/27/19 04:00 35 01/27/19 02:51 64 18 35 01/27/19 00:45 67 19 35 01/27/19 00:00 99.1 61 20 158/85 (109) 99 01/27/19 00:00 Mechanical Ventilator 01/27/19 00:00 30 01/26/19 23:35 74 01/26/19 22:52 67 20 35 01/26/19 21:17 61 17 35 01/26/19 20:05 68 18 35 01/26/19 20:00 Mechanical Ventilator 01/26/19 20:00 30 01/26/19 20:00 99.3 68 21 154/75 (101) 98 01/26/19 19:46 74 01/26/19 17:06 59 17 35 01/26/19 16:00 30 01/26/19 16:00 Mechanical Ventilator 01/26/19 16:00 65 01/26/19 16:00 98.6 63 18 152/81 (104) 98 01/26/19 14:40 86 19 35 01/26/19 12:33 61 16 35 01/26/19 12:00 98.2 63 18 150/84 (106) 99 01/26/19 12:00 64 01/26/19 12:00 30 01/26/19 12:00 Mechanical Ventilator Status: awake Condition: critical Neck: full ROM Lungs: clear Heart: HR/BP stable Abdomen: soft, active bowel sounds Extremities: no C/C/E Critical Care - Subjective ROS Limited/Unobtainable: Yes EKG Rhythm: Sinus Rhythm FI02: 35 Vent Support Breath Rate: 16 Vent Support Mode: AC Vent Tidal Volume: 600 Sputum Amount: Small PEEP: 5.0 PIP: 25 Tube Feeding Amount: 30 I&O: Intake and Output 01/26/19 01/27/19 19:00 07:00 Intake Total 740 ml 330 ml Output Total 800 ml 800 ml Balance -60 ml -470 ml Free Water 300 ml 30 ml IV Total 110 ml Tube Feeding 330 ml 300 ml Output Urine Total 800 ml 800 ml # Voids 1 # Bowel Movements 1 2 Labs: Laboratory Tests Test 01/27/19 03:41 White Blood Count 7.5 K/UL (4.8-10.8) Red Blood Count 3.22 M/UL (4.70-6.10) L Hemoglobin 9.2 G/DL (14.2-18.0) L Hematocrit 28.6 % (42.0-52.0) L Mean Corpuscular Volume 89 FL (80-99) Mean Corpuscular Hemoglobin 28.6 PG (27.0-31.0) Mean Corpuscular Hemoglobin Concent 32.3 G/DL (32.0-36.0) Red Cell Distribution Width 16.3 % (11.6-14.8) H Platelet Count 152 K/UL (150-450) Mean Platelet Volume 6.6 FL (6.5-10.1) Neutrophils (%) (Auto) 74.0 % (45.0-75.0) Lymphocytes (%) (Auto) 7.9 % (20.0-45.0) L Monocytes (%) (Auto) 10.4 % (1.0-10.0) H Eosinophils (%) (Auto) 6.8 % (0.0-3.0) H Basophils (%) (Auto) 0.9 % (0.0-2.0) Sodium Level 133 MMOL/L (136-145) L Potassium Level 4.0 MMOL/L (3.5-5.1) Chloride Level 102 MMOL/L (98-107) Carbon Dioxide Level 24 MMOL/L (21-32) Anion Gap 7 mmol/L (5-15) Blood Urea Nitrogen 21 mg/dL (7-18) H Creatinine 0.9 MG/DL (0.55-1.30) Estimat Glomerular Filtration Rate mL/min (>60) Glucose Level 94 MG/DL (74-106) Calcium Level 8.1 MG/DL (8.5-10.1) L Total Bilirubin 0.4 MG/DL (0.2-1.0) Aspartate Amino Transf (AST/SGOT) 16 U/L (15-37) Alanine Aminotransferase (ALT/SGPT) 13 U/L (12-78) Alkaline Phosphatase 82 U/L (46-116) Total Protein 7.7 G/DL (6.4-8.2) Albumin 1.7 G/DL (3.4-5.0) L Globulin 6.0 g/dL Albumin/Globulin Ratio 0.3 (1.0-2.7) L Dennis Woodall MD Jan 27, 2019 10:46
--- NOTE | 2019-01-27 11:02 | NUR ---
OYSTER TONGERMICROWAVE TECHNICIAN SI: RESP FAILURE TRACH/VENT DEPENDENT,SEPSIS T. 98.4 HR 64 RR 21 B/P 157/79 AC 16 TV 600 FIO2 35% PEEP 5 BUN 21 IS: DAPTOMYCIN IV MEROPENEM IV PROTONIX IV HEPARIN SUBC ALB INLINE TX STEP DOWN STATUS
--- NOTE | 2019-01-27 11:04 | NUR ---
SOFTBALL CORE MOLDER NOTES SPOKE WITH SCOTTIE ABREU FROM [facility], MADE AWARE PT IS STABLE FOR TRANSFER INTO NETWORK. ORDER AND CLINICALS FAXED TO [phone]. Addendum: 01/27/19 at 1629 by JESSICA HONG RN RN RECEIVED A CALL FROM JEROD FROM [facility], PT TO BE TRANSFERRED TO [facility] ROOM 5790. ACCEPTING MD IS DR. TERRY. NURSE TO CALL REPORT TO [phone]. TRANSPORTATION SET UP BY [facility] WITH AN ETA OF 1999.PRIMARY NURSE MADE AWARE.
--- NOTE | 2019-01-27 11:33 | NUR ---
*-* INSURANCE *-* UPDATED CLINICALS AND REVIEWS HAVE BEEN FAXED: AJ GUZMAN# [phone] [facility]: KIM An- [phone] F- [phone]...REVIEW/CLINICAL
[2019-01-27 12:00] VITALS: BP 143/85
--- NOTE | 2019-01-27 12:18 | Surgery Progress Note ---
Surgery Progress Note Subjective Additional Comments no acute events exam stable dressing being changed labs noted Objective Last 24 Hour Vital Signs Date Time Temp Pulse Resp B/P (MAP) Pulse Ox O2 Delivery O2 Flow Rate FiO2 01/27/19 12:00 35 01/27/19 12:00 99.0 69 21 143/85 (104) 99 01/27/19 12:00 Mechanical Ventilator 01/27/19 10:41 71 18 35 01/27/19 08:40 72 17 35 01/27/19 08:00 98.1 64 21 157/79 (105) 100 01/27/19 08:00 65 01/27/19 08:00 Mechanical Ventilator 01/27/19 08:00 35 01/27/19 06:50 63 18 35 01/27/19 05:07 71 18 35 01/27/19 04:00 69 01/27/19 04:00 Mechanical Ventilator 01/27/19 04:00 98.7 73 18 149/86 (107) 98 01/27/19 04:00 35 01/27/19 02:51 64 18 35 01/27/19 00:45 67 19 35 01/27/19 00:00 99.1 61 20 158/85 (109) 99 01/27/19 00:00 Mechanical Ventilator 01/27/19 00:00 30 01/26/19 23:35 74 01/26/19 22:52 67 20 35 01/26/19 21:17 61 17 35 01/26/19 20:05 68 18 35 01/26/19 20:00 Mechanical Ventilator 01/26/19 20:00 30 01/26/19 20:00 99.3 68 21 154/75 (101) 98 01/26/19 19:46 74 01/26/19 17:06 59 17 35 01/26/19 16:00 30 01/26/19 16:00 Mechanical Ventilator 01/26/19 16:00 65 01/26/19 16:00 98.6 63 18 152/81 (104) 98 01/26/19 14:40 86 19 35 01/26/19 12:33 61 16 35 I&O Intake and Output 01/26/19 01/27/19 19:00 07:00 Intake Total 740 ml 330 ml Output Total 800 ml 800 ml Balance -60 ml -470 ml Free Water 300 ml 30 ml IV Total 110 ml Tube Feeding 330 ml 300 ml Output Urine Total 800 ml 800 ml # Voids 1 # Bowel Movements 1 2 Dressing: dry Wound: clean Cardiovascular: RSR Respiratory: clear Abdomen: soft, present bowel sounds Extremities: no cyanosis Laboratory Tests Test 01/27/19 03:41 White Blood Count 7.5 K/UL (4.8-10.8) Red Blood Count 3.22 M/UL (4.70-6.10) L Hemoglobin 9.2 G/DL (14.2-18.0) L Hematocrit 28.6 % (42.0-52.0) L Mean Corpuscular Volume 89 FL (80-99) Mean Corpuscular Hemoglobin 28.6 PG (27.0-31.0) Mean Corpuscular Hemoglobin Concent 32.3 G/DL (32.0-36.0) Red Cell Distribution Width 16.3 % (11.6-14.8) H Platelet Count 152 K/UL (150-450) Mean Platelet Volume 6.6 FL (6.5-10.1) Neutrophils (%) (Auto) 74.0 % (45.0-75.0) Lymphocytes (%) (Auto) 7.9 % (20.0-45.0) L Monocytes (%) (Auto) 10.4 % (1.0-10.0) H Eosinophils (%) (Auto) 6.8 % (0.0-3.0) H Basophils (%) (Auto) 0.9 % (0.0-2.0) Sodium Level 133 MMOL/L (136-145) L Potassium Level 4.0 MMOL/L (3.5-5.1) Chloride Level 102 MMOL/L (98-107) Carbon Dioxide Level 24 MMOL/L (21-32) Anion Gap 7 mmol/L (5-15) Blood Urea Nitrogen 21 mg/dL (7-18) H Creatinine 0.9 MG/DL (0.55-1.30) Estimat Glomerular Filtration Rate mL/min (>60) Glucose Level 94 MG/DL (74-106) Calcium Level 8.1 MG/DL (8.5-10.1) L Total Bilirubin 0.4 MG/DL (0.2-1.0) Aspartate Amino Transf (AST/SGOT) 16 U/L (15-37) Alanine Aminotransferase (ALT/SGPT) 13 U/L (12-78) Alkaline Phosphatase 82 U/L (46-116) Total Protein 7.7 G/DL (6.4-8.2) Albumin 1.7 G/DL (3.4-5.0) L Globulin 6.0 g/dL Albumin/Globulin Ratio 0.3 (1.0-2.7) L Plan Problems: (1) funtional quadriplegia (2) Sepsis Assessment & Plan: leukocytosis - resolved hypotension - improved tachycardia improving overall on IV abx trend labs (3) Chronic respiratory failure (4) Pneumonia (5) Acute on chronic respiratory failure (6) Vegetative endocarditis (7) Feeding by G-tube (8) Protein-calorie malnutrition, severe Assessment & Plan: DAILY ESTIMATED NEEDS: Needs based on Underweight, critical care, wounds, 58.5kg 30-35 kcals/kg 7457-4523 total kcals 1.25-2 g protein/kg 73-117 g total protein 25-30 mL/kg 8008-1161 total fluid mLs NUTRITION DIAGNOSIS: 1) Increased kcal and protein needs r/t wound healing and underweight status as evidenced by pt w/ multiple advanced wounds per photos, pending eval, and generalized severe wasting @72% of [place] body Weight. 2) Swallowing difficulty r/t respiratory failure as evidenced by pt is trach/ vent dep and GT dependent. CURRENT TF: Jevity 1.2 @30 (meets <60% est needs) ENTERAL NUTRITION RECOMMENDATIONS-->> TF change to OSMOLITE 1.5 @57ml/hr x24 hrs + Prosource x1 to provide 1368ml, 2052 kcal, 86g + 11g pro, 1042ml free H2O - Rec TF change to Osmolite 1.5 as per TF PRODUCTION REPRODUCTION MANAGER. - Start @37ml/hr x6 hrs. Advance as tolerated 10ml/hr q4-6 hrs to goal. - Add Prosource x1 daily to better meet est pro needs - Flush per MD. HOB over 30 degrees. ADDITIONAL RECOMMENDATIONS: PER SNF: HT=72inches (current BMI of 24 appears inaccurate) WOUND CARE: add WIL BID + VIT C 250mg BID (f/up w/ MD eval) Check lytes daily, replete as needed Weekly calibrated bed scale wts (9) At high risk for aspiration (10) ATN (acute tubular necrosis) (11) Severe anemia (12) Encephalopathy acute (13) Pyuria (14) Left pulmonary infiltrate on CXR (15) Pleural effusion, left (16) Decubitus skin ulcer Assessment & Plan: Pt presented on admission with contractures and multiple pressure injuries.Skin integrity is dry and scaly. Pt noted to have scattered small partial thickness wounds to R and L scapulae. Pt also observed to be scratching at sites of wounds. (proximal)(L)1.2cm x (W)1.5cm. Base of wound moist and viable.Edges flat and adherent to base of wound erythema with scattered smaller scratch hunter periwound.(Distal)(L)1.7cm x(W)2cm Base of wound moist and viable. Edges flat and adherent to base of wound. Small amt sanguineous exudate noted. Erythema with scattered scratch hunter periwound. Non-blanchable erythema with shearing R buttocks. Surrounding Hyperpigmentation sacrum and l buttocks.Moisture intertrigo noted to R and L groin. Small amt sanguineous exudate noted from both R and L groin folds. Full Thickness wound noted to L hip Base of wound indurated ,maroon in colour with small opening centrally oozing small amt sanguineous exudate.Non- blanchable erythema without elevation in skin temp periwound. Inferior to L hip at L greater trochanteric Full thickness pressure injury with undermining. Base of wound cade with biofilm. Bone is palpable.Small amt non- odorous serous exudate noted.(L)2cm x (W)2.6cm x(D)0.5cm,undermining 2-3 by 4.6cm @3o'clock. Periwound without erythema or induration. Full thickness pressure injury with undermining R trochanter. Base of wound is 60% viable ,40% slough.Periwound without erythema or induration.Small amt non- odorous serous exudate noted.(L)2.3cm x (W)3.7cm x (D)0.2cm,undermining 9-3 by 2.1cm @2o'clock. Scattered small dry scabs noted to R and L Tibia. Full thickness pressure injury R Hallux. Base of wound 2% viable with 75% slough ,Macerated borders,Erythema without induration periwound.(L)1.1cm x (W)0.9cm. Multiple partial thickness wounds and dry scabs that are in close proximity noted to dorsal R foot. An area measuring (L)6.5cm x (W)5cm. Dry eschar noted to matrix of R st metatarsal. Full thickness wound dorso/flexor L foot .Base of wound 80% viable ,10% slough, 10% necrotic. Small amt sanguineous exudate noted. (L)1.2cm x (W)3cm x (D)0.2cm Full thickness pressure injury noted to lateral/plantar R foot. Base of wound moist with Biofilm. Macerated borders. Erythema without induration or elevation in skin temp periwound.(L)0.5cm x (W)1.5cm. Full thickness wound L hallux.Base of wound 90% viable with 10% slough. Borders of wound macerated and erythematous. Periwound fluctuant.Small amt sanguineous exudate noted.(L)1.2cm x (W)1.5cm. Full thickness wound L heel Base of wound 80% viable,20% slough noted. Bone is palpable. Edges adherent and flat. Small amt sanguineous exudate noted. Non- blanchable erythema with fluctuance noted periwound. (L)6.5cm x (W)4.6cm x (D) 0.5cm). Ulcers noted to L 2nd ,3rd and 4th metatarsals. L 2nd metatarsal ulcer-Base of wound 100% soft necrosis (L)0.5cm x (W)1cm. L 3rd metatarsal. Base of wound 90 % necrotic ,10% viability.(L)0.5cm x (W)0.3cm. L 4th metatarsal wound Moist with Biofilm (L)0.7cm x (W)0.5cm x (D)0.2cm. Full thickness wound lateral L foot. Base of wound moist and viable. Borders are macerated. Small amt sanguineous exudate noted.(L)0.8cm x (W)0.9cm x (D) 0.2cm. Tx.Plan: Cleanse wound R trochanter with saline. Apply Therahoney,Apply Cavilon Periwound. Cover with Optifoam drsg. Change every 3 days and prn. Cleanse wounds L hip and L trochanter with Saline. Apply Therahoney. Apply Cavilon periwound .Cover with Optifoam drsg every 3 days and prn. Cleanse wounds L scapula with Saline. Apply TheraHoney. Apply Cavilon periwound.Cover with Optifoam drsg every 3 days and prn. Apply Triad paste to sacrum ,groin and scrotum with each Incontinence care. Cleanse wounds R and L foot with Saline. Apply TheraHoney. Cover wounds with Abd pads and wrap both feet with Kerlix gauze every 3 days and prn. Air Fluidized mattress. Reposition at least every 2hours or as tolerated. Place pillow between knees. Off-load heels with pillow. Stanislav Avelar Jan 27, 2019 12:18
[2019-01-27] MEDS: DAPTOmycin 250 MG in NS 55 ML IV SCH (13:41)
--- NOTE | 2019-01-27 15:52 | NUR ---
NURSE NOTES: Called [facility], , gave report to TEDDY Duran. Charge nurse made aware. Noted. Will continue to monitor patient.
[2019-01-27 16:00] VITALS: BP 131/70
--- NOTE | 2019-01-27 16:22 | NUR ---
NURSE NOTES: Called and spoke with Nayla Brooks, patient's ex-, ; informed Ms. Brooks patient will be transferred tonight 8pm to [facility] room 5719. Ms. Brooks acknowledged and expressed appreciation to this nurse and patient care in facility. Noted. Will continue to monitor patient.
--- NOTE | 2019-01-27 17:09 | Internal Med Progress Note ---
Subjective Date of Service: Jan 27, 2019 Physician Name Bunny Morocho Attending Physician Danis Wolfe MD Current Medications Medications (Trade) Dose Ordered Sig/Margarette Route PRN Reason Start Time Stop Time Status Last Admin Dose Admin Acetaminophen (Tylenol) 650 mg Q4H PRN ORAL FEVER 01/23/19 16:15 02/22/19 16:14 01/24/19 17:39 Albuterol/ Ipratropium (Albuterol/ Ipratropium) 3 ml Q4H PRN HHN Shortness of Breath 01/23/19 16:15 01/28/19 16:14 Ascorbic Acid (Vitamin C) 250 mg TWICE A DAY ORAL 01/24/19 18:00 02/23/19 17:59 01/27/19 08:04 Clonidine HCl (Catapres Tab) 0.1 mg Q6H PRN GT For High Blood Pressure 01/24/19 23:00 02/23/19 21:44 Daptomycin 250 mg/ Sodium Chloride 55 ml @ 100 mls/hr Q24H IV 01/25/19 14:00 02/01/19 13:59 01/27/19 13:41 Dextrose (Dextrose 50%) 25 ml Q30M PRN IV Hypoglycemia 01/23/19 16:15 02/22/19 16:14 Dextrose (Dextrose 50%) 50 ml Q30M PRN IV Hypoglycemia 01/23/19 16:15 02/22/19 16:14 Heparin Sodium (Porcine) (Heparin 5000 units/ml) 5,000 units EVERY 12 HOURS SUBQ 01/23/19 21:00 02/22/19 20:59 01/27/19 08:05 Hydralazine HCl (Apresoline) 50 mg Q6HR PRN ORAL For High Blood Pressure 01/24/19 23:00 02/23/19 22:14 01/25/19 20:42 Lorazepam (Ativan 2mg/ml 1ml) 2 mg Q2H PRN IV For Anxiety 01/23/19 16:15 01/30/19 16:14 Meropenem 1 gm/ Sodium Chloride 55 ml @ 110 mls/hr Q12HR@0300,1500 IVPB 01/24/19 15:00 01/29/19 14:59 01/27/19 14:30 Morphine Sulfate (Morphine Sulfate) 4 mg Q4H PRN IVP Severe Pain (Pain Scale 7-10) 01/23/19 16:15 01/30/19 16:14 01/27/19 13:42 Ondansetron HCl (Zofran) 4 mg Q6H PRN IVP Nausea & Vomiting 01/23/19 16:15 02/22/19 16:14 Pantoprazole (Protonix) 40 mg DAILY IV 01/24/19 09:00 02/23/19 08:59 01/27/19 08:04 Polyethylene Glycol (Miralax) 17 gm DAILYPRN PRN ORAL Constipation 01/23/19 16:15 02/22/19 16:14 Allergies: Coded Allergies: NSAIDS (NON-STEROIDAL ANTI-INFLAMMA (Unverified Allergy, Unknown, 11/27/18) PIPERACILLIN (Unverified Allergy, Unknown, 01/25/19) tolerates carbapenem TAZOBACTAM (Unverified Allergy, Unknown, 11/27/18) Uncoded Allergies: NSAID (Allergy, Unknown, 09/14/18) ROS Limited/Unobtainable: Yes Subjective 83 YO M admitted with hypotension and altered mental status. Now UTI and pneumonia. Cover for Int med-Dr Wolfe. [facility] Objective Last Vital Signs Date Time Temp Pulse Resp B/P (MAP) Pulse Ox O2 Delivery O2 Flow Rate FiO2 01/27/19 16:00 35 01/27/19 16:00 73 01/27/19 16:00 Mechanical Ventilator 01/27/19 14:43 17 01/27/19 13:42 98.4 01/27/19 12:00 143/85 (104) 99 01/23/19 17:47 15.0 Laboratory Tests Test 01/27/19 03:41 White Blood Count 7.5 K/UL (4.8-10.8) Red Blood Count 3.22 M/UL (4.70-6.10) L Hemoglobin 9.2 G/DL (14.2-18.0) L Hematocrit 28.6 % (42.0-52.0) L Mean Corpuscular Volume 89 FL (80-99) Mean Corpuscular Hemoglobin 28.6 PG (27.0-31.0) Mean Corpuscular Hemoglobin Concent 32.3 G/DL (32.0-36.0) Red Cell Distribution Width 16.3 % (11.6-14.8) H Platelet Count 152 K/UL (150-450) Mean Platelet Volume 6.6 FL (6.5-10.1) Neutrophils (%) (Auto) 74.0 % (45.0-75.0) Lymphocytes (%) (Auto) 7.9 % (20.0-45.0) L Monocytes (%) (Auto) 10.4 % (1.0-10.0) H Eosinophils (%) (Auto) 6.8 % (0.0-3.0) H Basophils (%) (Auto) 0.9 % (0.0-2.0) Sodium Level 133 MMOL/L (136-145) L Potassium Level 4.0 MMOL/L (3.5-5.1) Chloride Level 102 MMOL/L (98-107) Carbon Dioxide Level 24 MMOL/L (21-32) Anion Gap 7 mmol/L (5-15) Blood Urea Nitrogen 21 mg/dL (7-18) H Creatinine 0.9 MG/DL (0.55-1.30) Estimat Glomerular Filtration Rate mL/min (>60) Glucose Level 94 MG/DL (74-106) Calcium Level 8.1 MG/DL (8.5-10.1) L Total Bilirubin 0.4 MG/DL (0.2-1.0) Aspartate Amino Transf (AST/SGOT) 16 U/L (15-37) Alanine Aminotransferase (ALT/SGPT) 13 U/L (12-78) Alkaline Phosphatase 82 U/L (46-116) Total Protein 7.7 G/DL (6.4-8.2) Albumin 1.7 G/DL (3.4-5.0) L Globulin 6.0 g/dL Albumin/Globulin Ratio 0.3 (1.0-2.7) L Intake and Output 01/26/19 01/27/19 19:00 07:00 Intake Total 740 ml 330 ml Output Total 800 ml 800 ml Balance -60 ml -470 ml Free Water 300 ml 30 ml IV Total 110 ml Tube Feeding 330 ml 300 ml Output Urine Total 800 ml 800 ml # Voids 1 # Bowel Movements 1 2 Objective PHYSICAL EXAMINATION: GENERAL: The patient is a well-developed and well-nourished male, who is intubated and sedated. HEENT: Eyes, pupils are equal and responsive to light and accommodation. Extraocular movements are intact. NECK: Supple without lymphadenopathy. CHEST: Mech vent; Lungs with exp wheezes and bibasilar rales CARDIOVASCULAR: Regular rhythm and rate. S1 and S2 are normal without murmurs, rubs, or gallops. ABDOMEN: Soft, nontender, and nondistended. Positive bowel sounds. No evidence of hepatosplenomegaly. Currently, no rebound or guarding noted. EXTREMITIES: Negative for clubbing, cyanosis, or edema. RECTAL/GENITAL: Refused. NEUROLOGICAL: Unable to assess. Assessment/Plan Assessment/Plan ASSESSMENT: This is an 83-year-old male. 1. Altered mental status. 2. Probable sepsis. 3. Hypertension. 4. Leukocytosis. 5. Pneumonia=gram neg shante 6. Congestive heart failure. 7. Dysphagia. 8. Ventilator dependence. 9. Functional quadriplegia. 10. History of myocardial infarction. 11. 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 Altered mental status. This may be secondary to sepsis. 2. Sepsis/hypotension. An Infectious Disease consultation has been obtained with Dr. Dorantes. The patient has been placed empirically on meropenem, amikacin, and vancomycin. Urine, blood, and sputum cultures are pending. 3. Pneumonia. A Pulmonary consultation has been obtained with Dr. Dennis Woodall. The patient has been started on meropenem, vancomycin, and amikacin as above. Sputum cultures are pending. 4. Congestive heart failure. Cardiology consultation has been obtained. 5. Dysphagia. The patient is status post G-tube placement as above. 6. Functional quadriplegia. 7. History of coronary artery disease, status post myocardial infarction. 8. Abx=meropenem and daptomycin per ID 9. Patient [facility] patient-transfer when bed available Bunny Morocho MD Jan 27, 2019 17:09
[2019-01-27] MEDS ORDERED: NS 275ml ONE ×2 (18:00→21:45)
[2019-01-27] MEDS ORDERED: Tubing IV Secondary IV ONE ×2 (18:00→21:45)
--- NOTE | 2019-01-27 19:20 | NUR ---
NURSE NOTES: Received report from Francois RN, pt. in bed awake, A/O x's 1-2- non-verbal, no signs or symptoms of acute cardiac or respiratory distress noted, bed in lowest position and call light within easy reach, bed alarm on, side rails up x's3 and safety brakes engaged, pt. appears to be tolerating current vent settings well- no distress noted- TV 600, AC 16, Fio2 at 35% and peep 5, Osmolite 1.5 running at 10cc/hr- no residual noted- feeding held due to pt. being discharged to [place], pt. appears to be clean and dry, LFA 18G SL, safety measures continued, will continue with plan of care.
--- NOTE | 2019-01-27 19:29 | NUR ---
HAND-OFF: Report given to TEDDY Ornelas.
[2019-01-27 20:00] VITALS: BP 136/78
--- NOTE | 2019-01-27 21:15 | NUR ---
HAND-OFF: Report given to Annalee from [facility]- pt. remains stable and no signs of distres noted.
[2019-01-27] MEDS ORDERED: Tubing Blood Filter IV ONE (21:45)
--- NOTE | 2019-01-28 22:06 | Discharge Summary ---
Discharge Summary Discharge Summary _ DATE OF ADMISSION: 01/23/2019 DATE OF DISCHARGE: 01/27/2019 DISCHARGED BY: Dr. Wolfe REASON FOR ADMISSION: 83 years old male past medical history of chronic respiratory failure, tracheostomy status, anemia, dysphagia, G-tube, multiple decubitus ulcer, presented with altered level of consciousness and hypotension . P atient received fluid bolus, and blood pressure improved. Laboratory work-up revealed leukocytosis of 23, hemoglobin 8.7 hematocrit 28.6. BUN 60, creatinine 1.1. Lactic acid 1.8. Glucose 124. Stable LFT and lipase. Troponin 0.029. Pro BNP 3183. EKG revealed normal sinus rhythm, no acute ischemic changes. Urinalysis revealed +3 protein, + 3 leukocyte esterase, pyuria and moderate bacteria. Chest x-ray demonstrated left lung infiltrate versus edema, left-sided pleural effusion, and volume loss. Appearance was similar to prior study of 11/22/2018. Right lung interstitial opacities, possibly reflecting infiltrates or edema. Patient initially was not transferrable to [facility] and was admitted to direct observational unit for further management. CONSULTANTS: pulmonary/critical care Dr. Woodall ID specialist Dr. Dorantes surgery Dr. Avelar [facility] COURSE: Patient admitted to [facility]. Patient started on the IV fluids and empiric antibiotic as per ID specialist recommendation. Ventilator support and pulmonary toilet provided. Blood cultures were negative. Urine culture revealed VRE. Sputum culture demonstrated Achromobacter, Enterobacter and Providencia. Antibiotic optimized based on culture. Patient with prior history of ESBL Proteus UTI and bacteremia in November 2018. Sepsis was likely secondary to UTI and probable pneumonia. Leukocytosis resolved, patient afebrile. Follow-up chest x-ray revealed bilateral infiltrates versus edema, left greater than right, somewhat increased in the right over the 2 days. Some improvement of pleural fluid on the left. Renal parameters and electrolytes were closely monitored. Electrolytes corrected as needed, and nephrotoxins were avoided. Prior to discharge BUN from 60 down to 21, and creatinine from 1.1 down to 0.9. Aspiration precautions were maintained. Tube feeding formula and nutritional supplements provided as per registered nurse teacher recommendation. Patient presented on admission with contractures and multiply pressure injury. Wound care provided as per general surgeon recommendation. Hemoglobin and hematocrit were closely monitored. Patient undergone transfusion of 1 unit of packed red blood cells while in the hospital for hemoglobin 7.2. Prior to discharge hemoglobin 9.3, hematocrit 28.9. Anemia work-up was consistent with anemia of chronic disease. DVT AND GI prophylaxis provided. Supportive care provided. Bowel regimen instituted. Patient was stable for transfer to [facility] for further management. FINAL DIAGNOSES: Sepsis UTI with VRE Pneumonia with Achromobacter, Enterobacter and Providencia Acute on chronic respiratory failure Pleural effusion Aspiration risk Dysphagia, feeding by G-tube Severe protein calorie malnutrition Functional quadriplegia Altered mental status History of myocardial infarction/NSTEMI DISCHARGE MEDICATIONS: List of medication was sent to accepting facility DISCHARGE INSTRUCTIONS: Patient was transferred to [facility] for further management as per insurance. I have been assigned to dictate discharge summary for this account. I was not involved in the patient's management. Ria Mac NP Jan 28, 2019 22:06
== END 2019-01-27 21:46 | disposition other institution, planned readmission (95) | DRG 870 ==
LOC: EDBD 13:45 → EMR 14:16 → 2W 14:32 → EDBEDREQ 15:25
PROC: 5A1955Z Respiratory Ventilation, Greater than 96 Consecutive Hours (ICD-10-PCS; principal; 2019-01-23)
PROC: 30233N1 Transfusion of Nonautologous Red Blood Cells into Peripheral Vein, Percutaneous Approach (ICD-10-PCS; 2019-01-24)
DX: A41.9 Sepsis, unspecified organism (principal); R53.2 Functional quadriplegia; E43 Unspecified severe protein-calorie malnutrition; J96.20 Acute and chronic respiratory failure, unspecified whether with hypoxia or hypercapnia; N17.0 Acute kidney failure with tubular necrosis; J15.8 Pneumonia due to other specified bacteria; J15.6 Pneumonia due to other Gram-negative bacteria; N39.0 Urinary tract infection, site not specified; G93.40 Encephalopathy, unspecified; Z43.1 Encounter for attention to gastrostomy; Z99.11 Dependence on respirator [ventilator] status; Z68.1 Body mass index [BMI] 19.9 or less, adult; Z43.0 Encounter for attention to tracheostomy; I25.2 Old myocardial infarction; R13.10 Dysphagia, unspecified; Z88.6 Allergy status to analgesic agent; Z88.1 Allergy status to other antibiotic agents; Z88.0 Allergy status to penicillin; I25.10 Atherosclerotic heart disease of native coronary artery without angina pectoris; L89.140 Pressure ulcer of left lower back, unstageable; L89.120 Pressure ulcer of left upper back, unstageable; L89.150 Pressure ulcer of sacral region, unstageable; L89.229 Pressure ulcer of left hip, unspecified stage; L89.219 Pressure ulcer of right hip, unspecified stage; L89.520 Pressure ulcer of left ankle, unstageable; L89.610 Pressure ulcer of right heel, unstageable; L89.890 Pressure ulcer of other site, unstageable; M24.50 Contracture, unspecified joint; Z79.4 Long term (current) use of insulin; B95.2 Enterococcus as the cause of diseases classified elsewhere; Z16.22 Resistance to vancomycin related antibiotics
CPT/HCPCS: 36415; 71045; 80048; 80053; 80069; 80202; 81003; 82270; 82378; 82550; 82607; 82746; 82962; 83540; 83550; 83605; 83615; 83690; 83735; 83880; 84100; 84484; 85007; 85025; 85044; 85060; 85610; 85651; 85730; 86850; 86900; 86901; 86920; 87040; 87070; 87081; 87086; 87181; 87205; 93005; 94002; 94003; 94664; 96361; 96365; 96367; 99285; J1580; J8499

== ENCOUNTER 2020-01-22 03:19 | Inpatient (IN) | payer MEDICARE, MEDICAID ==
[~2020-01-22] VITALS: Ht 165.1 cm; Wt 62.6 kg
[2020-01-22] VITALS (53 sets, daily range): BP systolic 62–123; BP diastolic 44–82
[~2020-01-22 03:19] MED LIST changes: +ALBUTEROL2.5 MG/3 M INH; +CALAZIME TOPIC; +CRANBERRY425 MG GT; +HYDROMORPHONE HC8 MG ORAL; +METHADONE HCL5 MG GT; +MIRTAZAPINE15 MG GT; +Santyl TOPIC; +VENELEX OINTMEN60 GM TP; +VITAMIN A & D113 GM TP
[2020-01-22 04:17] LABS: APPEARANCE,URINE CLOUDY; BILIRUBIN, URINE NEGATIVE (NEGATIVE); COLOR,URINE PALE YELLOW; GLUCOSE, URINE (UA) NEGATIVE (NEGATIVE); HEMOGLOBIN 9.1 G/DL (14.2-18.0); KETONES,URINE NEGATIVE (NEGATIVE); LEUKOCYTE ESTERASE ,URINE 3+ (NEGATIVE); MEAN CORPUSCULAR VOLUME 100 FL (80-99); NITRITE,URINE NEGATIVE (NEGATIVE); PH,URINE 8 (4.5-8.0); PLATELET COUNT 34 K/UL (150-450); PROTEIN,URINE 3+ (NEGATIVE); RED BLOOD COUNT 2.99 M/UL (4.70-6.10); RED CELL DISTRIBUTION WIDTH 16.1 % (11.6-14.8); UROBILINOGEN,URINE NORMAL MG/DL (0.0-1.0); WHITE BLOOD COUNT 21.6 K/UL (4.8-10.8)
--- NOTE | 2020-01-22 04:29 | Emergency Room Report ---
History of Present Illness General Chief Complaint: Dyspnea/Respdistress Source: EMS Present Illness HPI Patient is an 84-year-old male brought in by EMS after decreased oxygen saturation. Prior history of COPD as well as dementia and functional quadriplegia. He is tracheostomy dependent. Patient was noted by facility to have increased respiratory rate as well as decrease saturation. Patient is chronically debilitated and reportedly nonverbal at baseline. Allergies: Coded Allergies: NSAIDS (NON-STEROIDAL ANTI-INFLAMMA (Unverified Allergy, Unknown, 11/27/18) PIPERACILLIN (Unverified Allergy, Unknown, 01/25/19) tolerates carbapenem TAZOBACTAM (Unverified Allergy, Unknown, 11/27/18) Uncoded Allergies: NSAID (Allergy, Unknown, 09/14/18) COVID-19 Screening Contact w/high risk pt: No Experienced COVID-19 symptoms?: Yes COVID-19 Testing performed HOTEL GENERAL MANAGER: No Patient History Past Medical History: see triage record, old chart reviewed Reviewed Nursing Documentation: PMH: Agreed; PSxH: Agreed Nursing Documentation-PMH Hx Cardiac Problems: Yes Hx Cancer: No Hx Gastrointestinal Problems: Yes Hx Neurological Problems: Yes Hx Fatigue: Yes Review of Systems All Other Systems: limited - Review of systems: Review systems is limited by patient's being a poor historian Physical Exam Vital Signs Date Time Temp Pulse Resp B/P (MAP) Pulse Ox O2 Delivery O2 Flow Rate FiO2 01/22/20 03:17 97.9 101 15 100/82 (88) 96 Ambu-Bag 01/22/20 03:33 40 General Appearance: lethargic, Chronically Ill Head: normocephalic ENT: dry mucus membranes Neck: limited range of motion, tracheotomy Respiratory: decreased breath sounds Cardiovascular #1: regular rate, rhythm, edema - Trace edema Gastrointestinal: non tender, soft Neurologic: motor weakness, aphasia Skin: no rash Procedures Critical Care Time Critical Care Time Patient had a critical medical condition which untreated could potentially result in life or limb threatening injury. Total critical care time excluding procedures approximately 45 minutes. Central Line Central Line : Consent: Emergent Central Line Lumen: triple Maximal Sterile Barrier Tech: yes cap, yes mask, yes sterile gown, yes sterile gloves, yes large sterile sheet, yes hand hygiene, yes chlorhexidine prep Central Line Postion: subclavian (R) Anesthesia: local Central Line Post Position: sutured, good blood return, position confirmed w / CXR Attempts: One Patient Tolerated: Well Complications: None Medical Decision Making Diagnostic Impression: Primary Impression: Acute on chronic respiratory failure Additional Impressions: Bilateral pleural effusion Dehydration Urinary tract infection Ventilator dependent ER Course Patient presented for decree saturation. Differential diagnosis include was not limited to coronavirus infection, pneumonia, sepsis, pleural effusion, heart failure among others. Because of complexity of patient's case laboratory tests and imaging studies were ordered. Patient was noted to be vent dependent had prior history of chronic hypoxic respiratory failure. EKG interpreted by me showed normal sinus rhythm with a rate of [address] changes. Rapid coronavirus testing was ordered due to patient's desaturation. Chest x- ray read by radiology showed bilateral interstitial and airspace opacities left greater than right favored to represent edema however a component of infection could have similar appearance. Small pleural effusions left greater than right. Patient was given IV fluids due to hypotension. He was noted to have some improvement in blood pressure after IV fluids. He was started on supplemental oxygen.Patient was persistently hypotensive after IV fluid bolus. He was given IV antibiotics as well as hydrocortisone without any improvement. from [facility] authorized the patient for admission to [facility]. Coronavirus testing was negative. Patient would be admitted for management of sepsis to ICU. Labs Test 01/22/20 03:30 White Blood Count 21.6 K/UL (4.8-10.8) Red Blood Count 2.99 M/UL (4.70-6.10) Hemoglobin 9.1 G/DL (14.2-18.0) Hematocrit 30.0 % (42.0-52.0) Mean Corpuscular Volume 100 FL (80-99) Mean Corpuscular Hemoglobin 30.6 PG (27.0-31.0) Mean Corpuscular Hemoglobin Concent 30.5 G/DL (32.0-36.0) Red Cell Distribution Width 16.1 % (11.6-14.8) Platelet Count 34 K/UL (150-450) Mean Platelet Volume 10.2 FL (6.5-10.1) Neutrophils (%) (Auto) % (45.0-75.0) Lymphocytes (%) (Auto) % (20.0-45.0) Monocytes (%) (Auto) % (1.0-10.0) Eosinophils (%) (Auto) % (0.0-3.0) Basophils (%) (Auto) % (0.0-2.0) Urine Color Pale yellow Urine Appearance Cloudy Urine pH 8 (4.5-8.0) Urine Specific [place] 1.010 (1.005-1.035) Urine Protein 3+ (NEGATIVE) Urine Glucose (UA) Negative (NEGATIVE) Urine Ketones Negative (NEGATIVE) Urine Blood 3+ (NEGATIVE) Urine Nitrite Negative (NEGATIVE) Urine Bilirubin Negative (NEGATIVE) Urine Urobilinogen Normal MG/DL (0.0-1.0) Urine Leukocyte Esterase 3+ (NEGATIVE) Urine RBC 5-10 /HPF (0 - 0) Urine WBC 10-15 /HPF (0 - 0) Urine Squamous Epithelial Cells Occasional /LPF Urine Amorphous Sediment Moderate /LPF (NONE) Urine Bacteria Many /HPF (NONE) Urine Mucus Few /LPF (NONE/OCC) EKG Diagnostic Results Rate: normal Rhythm: NSR ST Segments: no acute changes Last Vital Signs Date Time Temp Pulse Resp B/P (MAP) Pulse Ox O2 Delivery O2 Flow Rate FiO2 01/22/20 03:33 98 30 40 01/22/20 03:17 97.9 100/82 (88) 96 Ambu-Bag Status: unchanged Disposition: ADMITTED INPATIENT Condition: Critical Referrals: [facility] (PCP) Gurpreet Cartwright MD Jan 22, 2020 04:29
[2020-01-22 04:32] LABS: ANION GAP 10 mmol/L (5-15); BLOOD UREA NITROGEN 168 mg/dL (7-18); CALCIUM 9.4 MG/DL (8.5-10.1); CARBON DIOXIDE 24 MMOL/L (21-32); CHLORIDE 117 MMOL/L (98-107); CREATININE 3.5 MG/DL (0.55-1.30); POTASSIUM 5.8 MMOL/L (3.5-5.1); SODIUM 151 MMOL/L (136-145)
[2020-01-22] MEDS ORDERED: ACETAMINOP160 MG/5 M GT (04:37)
[2020-01-22] MEDS ORDERED: DILAUDID 22 MG/1 M2 GT (04:37)
[2020-01-22] MEDS ORDERED: FERROUS SULFAT325 MG GT (04:37)
[2020-01-22] MEDS ORDERED: LIDODERM700 M1 TOPIC (04:37)
[2020-01-22] MEDS ORDERED: NARCAN4 MG NS (04:37)
[2020-01-22 04:45] LABS: ALANINE AMINOTRANSFERASE 49 U/L (12-78); ALBUMIN 1.4 G/DL (3.4-5.0); ALBUMIN/GLOBULIN RATIO 0.2 (1.0-2.7); ALKALINE PHOSPHATASE 144 U/L (46-116); ASPARTATE AMINO TRANSFERASE 48 U/L (15-37); BILIRUBIN,TOTAL 0.2 MG/DL (0.2-1.0); CKMB 1.8 NG/ML (0.0-3.6); CREATINE KINASE 29 U/L (26-308); PHOSPHORUS 2.4 MG/DL (2.5-4.9)
--- NOTE | 2020-01-22 04:59 | Diagnostic Imaging Report ---
EXAM: XR Chest, 1 View CLINICAL HISTORY: SOB TECHNIQUE: Frontal view of the chest. COMPARISON: 01/23/2019 FINDINGS: Lungs: Interstitial opacities left greater than right. Left basilar consolidation is unchanged. Pleural space: Small bilateral pleural effusions. Heart: Unremarkable. No cardiomegaly. Bones/joints: Unremarkable. Tubes, lines and devices: Tracheostomy cannula in place. IMPRESSION: 1. Bilateral interstitial and airspace opacities left greater than right favored to represent edema however a component of infection could have a similar appearance. 2. Small pleural effusions left greater than right.
[2020-01-22] MEDS ORDERED: Hydrocortisone 100mg Inj IV ONE (05:00)
[2020-01-22] MEDS ORDERED: Lidocaine 1% Plain 30 ml INJ ONE (05:29)
--- NOTE | 2020-01-22 06:36 | Diagnostic Imaging Report ---
EXAM: XR Chest, 1 View CLINICAL HISTORY: LINE TECHNIQUE: Frontal view of the chest. COMPARISON: No relevant prior studies available. FINDINGS: Lungs: Unchanged left greater than right interstitial opacities and retrocardiac consolidation. Pleural space: Small left pleural effusion. Heart: Unremarkable. No cardiomegaly. Bones/joints: Unremarkable. Tubes, lines and devices: Right subclavian central line which is kinked overlying the region of the proximal SVC. Tracheostomy cannula in place. IMPRESSION: 1. Right subclavian central line which is kinked overlying the region of the proximal SVC. Recommend repositioning. 2. Unchanged left greater than right interstitial opacities and retrocardiac consolidation. 3. Small left pleural effusion. <MYCVCSECTION> Communications: 01/22/20 06:41 Verify Receipt with Nurse Verified receipt with ER customs entry clerk on 01/21 06:41 (-07:00)
[2020-01-22] MEDS ORDERED: Albuterol/Ipratropium 3ml neb HHN PRN (08:15)
[2020-01-22] MEDS ORDERED: Norepinephrine 4mg/NS Premix 250 ML IV SCH (08:15)
[2020-01-22] MEDS ORDERED: LORazepam Inj 2mg/ml 1ml IV PRN (08:15)
[2020-01-22] MEDS ORDERED: Miralax 17gm pkt ORAL PRN (08:15)
[2020-01-22] MEDS ORDERED: Morphine Sulfate 4mg/ml Inj (IV USE ONLY) IVP PRN (08:15)
[2020-01-22] MEDS ORDERED: Pantoprazole Inj IV SCH (09:00)
--- NOTE | 2020-01-22 09:01 | Consultation ---
Consult Note Consult Note Patient seen in ICU at the request of . Examined. Discussed with RN. Chief Complaint: Dyspnea/Resp distress Patient is an 84-year-old male brought in by EMS after decreased oxygen saturation. Prior history of COPD as well as dementia and functional quadriplegia. He is tracheostomy dependent. Patient was noted by facility to have increased respiratory rate as well as decrease saturation. Patient is chronically debilitated and reportedly nonverbal at baseline. Allergies: Coded Allergies: NSAIDS (NON-STEROIDAL ANTI-INFLAMMA (Unverified Allergy, Unknown, 11/27/18) PIPERACILLIN (Unverified Allergy, Unknown, 01/25/19) tolerates carbapenem TAZOBACTAM (Unverified Allergy, Unknown, 11/27/18) Uncoded Allergies: NSAID (Allergy, Unknown, 09/14/18) COVID-19 Screening Contact w/high risk pt: No Experienced COVID-19 symptoms?: Yes COVID-19 Testing performed JAVA GROOVY DEVELOPER: No Hx Cardiac Problems: Yes Hx Cancer: No Hx Gastrointestinal Problems: Yes Hx Neurological Problems: Yes Hx Fatigue: Yes Vital Signs Date Time Temp Pulse Resp B/P (MAP) Pulse Ox O2 Delivery O2 Flow Rate FiO2 01/22/20 03:17 97.9 101 15 100/82 (88) 96 Ambu-Bag 01/22/20 03:33 40 General Appearance: lethargic, Chronically Ill Head: normocephalic ENT: dry mucus membranes, trach to vent Neck: limited range of motion, tracheotomy Respiratory: decreased breath sounds Cardiovascular #1: Tachycardic Gastrointestinal: non tender, soft, GT tube in place Neurologic: Not moving extremities Skin: Multiple decubitus Assessment/Plan FRIDA Dehydration, hypernatremia, hyperkalemia Anemia Chronic vent dependent, with superimposed acute component Bilateral pleural effusion Sepsis, leukocytosis, UTI Functional quadriplegia History of coronary artery disease and [place] Multiple decubiti Chronic malnutrition IV D5 and a half normal saline Pressors if needed Antibiotics Skin care Continue per consultants Monitor renal parameters Avoid nephrotoxic's I spent an additional 36 minutes on review of medical records including prior hospital records,consult notes, progress notes, procedures ,imaging labs, hemodynamics, and other clinical documentation. Over 35 min Ronnie Guevara MD Jan 22, 2020 09:01
[2020-01-22] MEDS ORDERED: Vancomycin 1.25gm/NS Premix IVPB ONE (09:30)
[2020-01-22 09:54] LABS: HEMATOCRIT 26.5 % (42.0-52.0); HEMOGLOBIN 7.9 G/DL (14.2-18.0); MEAN CORPUSCULAR VOLUME 100 FL (80-99); PLATELET COUNT 79 K/UL (150-450); RED BLOOD COUNT 2.65 M/UL (4.70-6.10); RED CELL DISTRIBUTION WIDTH 15.6 % (11.6-14.8)
[2020-01-22 09:58] LABS: WHITE BLOOD COUNT 35.6 K/UL (4.8-10.8)
[2020-01-22] MEDS ORDERED: D5 1/2NS w/KCL 10meq 1,000 ML IV SCH (10:30)
[2020-01-22 10:34] LABS: CREATINE KINASE 42 U/L (26-308)
[2020-01-22 10:51] LABS: ANION GAP 15 mmol/L (5-15); BLOOD UREA NITROGEN 162 mg/dL (7-18); CALCIUM 8.8 MG/DL (8.5-10.1); CARBON DIOXIDE 18 MMOL/L (21-32); CHLORIDE 120 MMOL/L (98-107); CREATININE 3.3 MG/DL (0.55-1.30); POTASSIUM 5.6 MMOL/L (3.5-5.1); SODIUM 153 MMOL/L (136-145)
[2020-01-22 10:59] LABS: ALANINE AMINOTRANSFERASE 48 U/L (12-78); ALBUMIN 1.3 G/DL (3.4-5.0); ALBUMIN/GLOBULIN RATIO 0.2 (1.0-2.7); ALKALINE PHOSPHATASE 97 U/L (46-116); ASPARTATE AMINO TRANSFERASE 42 U/L (15-37); BILIRUBIN,TOTAL 0.3 MG/DL (0.2-1.0); GAMMA GLUTAMYL TRANSPEPTIDASE 40 U/L (5-85); PHOSPHORUS 1.7 MG/DL (2.5-4.9)
[2020-01-22] MEDS: Pantoprazole Inj IV SCH ×2 (11:32→21:04)
[2020-01-22] MEDS: D5 1/2NS 1,000 ML IV SCH ×2 (11:33→19:30)
--- NOTE | 2020-01-22 12:36 | Consultation ---
History of Present Illness General Date patient seen: Jan 22, 2020 Chief Complaint: Dyspnea/Respdistress Present Illness HPI 84-year-old male with history of COPD, dementia, functional quadriplegia, with tracheostomy, Gtube, .brought in by EMS after decreased oxygen saturation and increased respiratory rate as well as decrease saturation. Allergies: Coded Allergies: NSAIDS (NON-STEROIDAL ANTI-INFLAMMA (Unverified Allergy, Unknown, 11/27/18) PIPERACILLIN (Unverified Allergy, Unknown, 01/25/19) tolerates carbapenem TAZOBACTAM (Unverified Allergy, Unknown, 11/27/18) Uncoded Allergies: NSAID (Allergy, Unknown, 09/14/18) Medication History Scheduled Ascorbic Acid* (Ascorbic Acid*), 500 MG GT DAILY, (Reported) Baclofen* (Baclofen*), 10 MG GT TWICE A DAY, (Reported) Balsam Yuan/[place] Oil (Venelex Ointment), 60 GM TP DAILY, (Reported) Bisacodyl* (Dulcolax*), 10 MG GT DAILY, (Reported) Cranberry Extract (Cranberry), 425 MG GT DAILY, (Reported) Docusate Sodium* (Docusate Sodium*), 250 MG GT TWICE A DAY, (Reported) Ferrous Sulfate* (Ferrous Sulfate*), 325 MG GT DAILY, (Reported) Lidocaine Patch* (Lidoderm Patch*), 1 PATCH TOPIC DAILY, (Reported) Methadone Hcl* (Methadone*), 2.5 MG GT DAILY, (Reported) Mirtazapine* (Remeron*), 7.5 MG GT BEDTIME, (Reported) Multivitamin With Minerals (Multivitamins With Minerals*), 1 TAB ORAL DAILY, ( Reported) Scheduled PRN Acetaminophen 160MG/5ML* (Acetaminophen*), 5 ML ORAL THREE TIMES A DAY PRN for Fever/Headache/Mild Pain, (Reported) Albuterol Sulfate* (Albuterol Sulfate Hhn*), 3 ML INH Q4H PRN for Shortness of Breath, (Reported) Hydromorphone Hcl (Hydromorphone Hcl), 8 MG ORAL EVERY 4 HOURS PRN for Moderate Pain (Pain Scale 4-6), (Reported) Miscellaneous Medications Hydromorphone HCl/Pf (Dilaudid 2 mg/ml Syringe), 2 MG GT, (Reported) Insulin Regular, Human (Humulin R), 0 SUBQ, (Reported) Mineral Oil (Mineral Oil Enema), 133 ML RC, (Reported) Naloxone HCl (Narcan), 4 MG NS, (Reported) Petrolatum,White/Lanolin (Vitamin A & D Ointment), 113 GM TP, (Reported) Sennosides (Senna), 8.6 MG GT, (Reported) [Calazime], TOPIC, (Reported) [Santyl], TOPIC, (Reported) Patient History Healthcare decision maker Resuscitation status Advanced Directive on File Past Medical/Surgical History Past Medical/Surgical History: (1) Ventilator dependent (2) funtional quadriplegia (3) Chronic respiratory failure (4) Feeding by G-tube (5) Protein-calorie malnutrition, severe Review of Systems All Other Systems: negative except mentioned in HPI Physical Exam General Appearance: cachetic, thin Lines, tubes and drains: peripheral HEENT: normocephalic, atraumatic Neck: non-tender, normal alignment Respiratory/Chest: chest wall non-tender, lungs clear Breasts: no masses Cardiovascular/Chest: normal rate, regular rhythm Abdomen: normal bowel sounds, non tender Extremities: normal range of motion, non-tender Last 24 Hour Vital Signs Date Time Temp Pulse Resp B/P (MAP) Pulse Ox O2 Delivery O2 Flow Rate FiO2 01/22/20 12:00 Mechanical Ventilator 01/22/20 12:00 97.6 79 24 97/54 (68) 100 01/22/20 11:30 80 24 105/64 (78) 100 01/22/20 11:00 80 22 104/55 (71) 100 01/22/20 10:30 81 23 102/63 (76) 100 01/22/20 10:00 81 24 97/60 (72) 100 01/22/20 09:30 86 25 98/61 (73) 99 01/22/20 09:15 87 22 102/61 (75) 100 01/22/20 09:00 88 23 98/64 (75) 99 01/22/20 08:55 55.0 01/22/20 08:55 Mechanical Ventilator 01/22/20 08:45 89 22 95/59 (71) 99 01/22/20 08:34 97.5 90 26 90/58 (69) 100 01/22/20 08:30 86 25 100 Mechanical Ventilator 40 01/22/20 08:30 97.8 94 28 96/63 97 Mechanical Ventilator 55 01/22/20 08:30 86 25 40 01/22/20 07:39 93 28 55 01/22/20 07:16 97.8 94 27 96/63 97 Mechanical Ventilator 40 01/22/20 06:55 88 26 106/57 98 Mechanical Ventilator 01/22/20 06:55 106/57 01/22/20 06:40 99 26 123/78 99 Mechanical Ventilator 01/22/20 06:40 123/78 01/22/20 06:25 78/42 01/22/20 06:25 97 26 78/52 97 Mechanical Ventilator 01/22/20 06:00 97.8 98 26 91/50 96 Mechanical Ventilator 01/22/20 05:11 88 26 90/52 96 Mechanical Ventilator 40 01/22/20 05:10 55 01/22/20 04:49 97.9 86 26 62/48 94 Mechanical Ventilator 40 01/22/20 03:40 98 30 Mechanical Ventilator 40 01/22/20 03:40 97.9 88 30 100/82 96 Mechanical Ventilator 40 01/22/20 03:33 98 30 40 01/22/20 03:17 97.9 101 15 100/82 (88) 96 Ambu-Bag Intake and Output 01/21/20 01/22/20 19:00 07:00 Intake Total 2200 ml Balance 2200 ml Intake IV Total 2200 ml Laboratory Tests Test 01/22/20 03:30 01/22/20 05:10 01/22/20 09:40 White Blood Count 21.6 K/UL (4.8-10.8) H 35.6 K/UL (4.8-10.8) #*H Red Blood Count 2.99 M/UL (4.70-6.10) L 2.65 M/UL (4.70-6.10) L Hemoglobin 9.1 G/DL (14.2-18.0) L 7.9 G/DL (14.2-18.0) L Hematocrit 30.0 % (42.0-52.0) L 26.5 % (42.0-52.0) L Mean Corpuscular Volume 100 FL (80-99) H 100 FL (80-99) H Mean Corpuscular Hemoglobin 30.6 PG (27.0-31.0) 29.7 PG (27.0-31.0) Mean Corpuscular Hemoglobin Concent 30.5 G/DL (32.0-36.0) L 29.7 G/DL (32.0-36.0) L Red Cell Distribution Width 16.1 % (11.6-14.8) H 15.6 % (11.6-14.8) H Platelet Count 34 K/UL (150-450) L 79 K/UL (150-450) #L Mean Platelet Volume 10.2 FL (6.5-10.1) H 7.3 FL (6.5-10.1) Neutrophils (%) (Auto) % (45.0-75.0) % (45.0-75.0) Lymphocytes (%) (Auto) % (20.0-45.0) % (20.0-45.0) Monocytes (%) (Auto) % (1.0-10.0) % (1.0-10.0) Eosinophils (%) (Auto) % (0.0-3.0) % (0.0-3.0) Basophils (%) (Auto) % (0.0-2.0) % (0.0-2.0) Differential Total Cells Counted 100 100 Neutrophils % (Manual) 96 % (45-75) H 88 % (45-75) H Lymphocytes % (Manual) 2 % (20-45) L 1 % (20-45) L Monocytes % (Manual) 2 % (1-10) 2 % (1-10) Eosinophils % (Manual) 0 % (0-3) 0 % (0-3) Basophils % (Manual) 0 % (0-2) 0 % (0-2) Band Neutrophils 0 % (0-8) 9 % (0-8) H Platelet Estimate Decreased L Decreased L Platelet Morphology Normal Normal Clumped Platelets 2+ Hypochromasia 2+ 3+ Anisocytosis 1+ 1+ Urine Color Pale yellow Urine Appearance Cloudy Urine pH 8 (4.5-8.0) Urine Specific [place] 1.010 (1.005-1.035) Urine Protein 3+ (NEGATIVE) H Urine Glucose (UA) Negative (NEGATIVE) Urine Ketones Negative (NEGATIVE) Urine Blood 3+ (NEGATIVE) H Urine Nitrite Negative (NEGATIVE) Urine Bilirubin Negative (NEGATIVE) Urine Urobilinogen Normal MG/DL (0.0-1.0) Urine Leukocyte Esterase 3+ (NEGATIVE) H Urine RBC 5-10 /HPF (0 - 0) H Urine WBC 10-15 /HPF (0 - 0) H Urine Squamous Epithelial Cells Occasional /LPF Urine Amorphous Sediment Moderate /LPF (NONE) H Urine Bacteria Many /HPF (NONE) H Urine Mucus Few /LPF (NONE/OCC) H Sodium Level 151 MMOL/L (136-145) H 153 MMOL/L (136-145) H Potassium Level 5.8 MMOL/L (3.5-5.1) H 5.6 MMOL/L (3.5-5.1) H Chloride Level 117 MMOL/L (98-107) H 120 MMOL/L (98-107) H Carbon Dioxide Level 24 MMOL/L (21-32) 18 MMOL/L (21-32) L Anion Gap 10 mmol/L (5-15) 15 mmol/L (5-15) Blood Urea Nitrogen 168 mg/dL (7-18) H 162 mg/dL (7-18) H Creatinine 3.5 MG/DL (0.55-1.30) H 3.3 MG/DL (0.55-1.30) H Estimat Glomerular Filtration Rate 16.9 mL/min (>60) 18.0 mL/min (>60) Glucose Level 124 MG/DL (74-106) H 64 MG/DL (74-106) L Lactic Acid Level 0.50 mmol/L (0.4-2.0) Calcium Level 9.4 MG/DL (8.5-10.1) 8.8 MG/DL (8.5-10.1) Phosphorus Level 2.4 MG/DL (2.5-4.9) L 1.7 MG/DL (2.5-4.9) L Magnesium Level 1.8 MG/DL (1.8-2.4) 1.7 MG/DL (1.8-2.4) L Total Bilirubin 0.2 MG/DL (0.2-1.0) 0.3 MG/DL (0.2-1.0) Aspartate Amino Transf (AST/SGOT) 48 U/L (15-37) H 42 U/L (15-37) H Alanine Aminotransferase (ALT/SGPT) 49 U/L (12-78) 48 U/L (12-78) Alkaline Phosphatase 144 U/L (46-116) H 97 U/L (46-116) Total Creatine Kinase 29 U/L (26-308) 42 U/L (26-308) Creatine Kinase MB 1.8 NG/ML (0.0-3.6) Creatine Kinase MB Relative Index 6.2 Troponin I 0.075 ng/mL (0.000-0.056) Total Protein 9.0 G/DL (6.4-8.2) H 7.3 G/DL (6.4-8.2) Albumin 1.4 G/DL (3.4-5.0) L 1.3 G/DL (3.4-5.0) L Globulin 7.6 g/dL 6.0 g/dL Albumin/Globulin Ratio 0.2 (1.0-2.7) L 0.2 (1.0-2.7) L Lipase 60 U/L (73-393) L Arterial Blood pH 7.317 (7.350-7.450) Arterial Blood Partial Pressure CO2 41.1 mmHg (35.0-45.0) Arterial Blood Partial Pressure O2 59.9 mmHg (75.0-100.0) L Arterial Blood HCO3 20.6 mmol/L (22.0-26.0) L Arterial Blood Oxygen Saturation 91.3 % (95-100) L Arterial Blood Base Excess -5.2 (-2-2) L Behzad Test Positive Uric Acid 6.9 MG/DL (2.6-7.2) Gamma Glutamyl Transpeptidase 40 U/L (5-85) C-Reactive Protein, Quantitative 34.5 mg/dL (0.00-0.90) H Pro-B-Type Natriuretic Peptide > 28850 pg/mL (0-125) H Microbiology Date/Time Source Procedure Growth Status 01/22/20 04:10 Nasopharynx SARS-CoV-2 RdRp Gene Assay - Final Complete 01/22/20 04:00 Rectum Received Height (Feet): 5 Height (Inches): 5.00 Weight (Pounds): 141 Medications Current Medications Medications (Trade) Dose Ordered Sig/Margarette Route PRN Reason Start Time Stop Time Status Last Admin Dose Admin Acetaminophen (Tylenol) 650 mg Q4H PRN ORAL fever 01/22/20 08:15 02/21/20 08:14 Albuterol/ Ipratropium (Albuterol/ Ipratropium) 3 ml Q4H PRN HHN Shortness of Breath 01/22/20 08:15 01/27/20 08:14 Amikacin Sulfate / Sodium Chloride 110 ml @ 110 mls/hr Q24H IV 01/22/20 23:45 01/29/20 23:44 UNV Dextrose/Sodium Chloride 1,000 ml @ 125 mls/hr Q8H IV 01/22/20 11:30 02/21/20 11:29 01/22/20 11:33 Ertapenem 1 gm/ Sodium Chloride 55 ml @ 110 mls/hr Q24H IV 01/22/20 23:45 01/27/20 23:44 UNV Heparin Sodium (Porcine) (Heparin 5000 units/ml) 5,000 units EVERY 12 HOURS SUBQ 01/22/20 09:00 03/07/20 08:59 UNV Lorazepam (Ativan 2mg/ml 1ml) 2 mg Q2H PRN IV For Anxiety 01/22/20 08:15 01/29/20 08:14 Magnesium Sulfate 100 ml @ 100 mls/hr Q1H IVPB 01/22/20 11:30 01/22/20 13:29 01/22/20 11:50 Morphine Sulfate (Morphine Sulfate) 4 mg Q4H PRN IVP Severe Pain (Pain Scale 7-10) 01/22/20 08:15 01/29/20 08:14 Norepinephrine Bitartrate 250 ml @ 0 mls/hr Q24H IV 01/22/20 15:00 04/21/20 14:59 Ondansetron HCl (Zofran) 4 mg Q6H PRN IVP Nausea & Vomiting 01/22/20 08:15 02/21/20 08:14 Pantoprazole (Protonix) 40 mg Q12HR IV 01/22/20 09:30 02/21/20 09:29 01/22/20 11:32 Phosphorus (Phospha 250 Neutral) 250 mg THREE TIMES A DAY GT 01/22/20 13:00 02/21/20 12:59 Polyethylene Glycol (Miralax) 17 gm DAILYPRN PRN ORAL Constipation 01/22/20 08:15 02/21/20 08:14 Vancomycin HCl (Vanco pharmacy to dose) 1 ea DAILY PRN MISC PHARMACY TO DOSE 01/22/20 08:45 02/21/20 08:44 Assessment/Plan Problem List: (1) Acute on chronic respiratory failure ICD Codes: J96.20 - Acute and chronic respiratory failure, unspecified whether with hypoxia or hypercapnia SNOMED: 32576712 (2) ATN (acute tubular necrosis) ICD Codes: N17.0 - Acute kidney failure with tubular necrosis SNOMED: 91471729 (3) Severe anemia ICD Codes: D64.9 - Anemia, unspecified SNOMED: 468665358 (4) Chronic respiratory failure ICD Codes: J96.10 - Chronic respiratory failure, unspecified whether with hypoxia or hypercapnia SNOMED: 10749467 (5) funtional quadriplegia (6) At high risk for aspiration ICD Codes: Z91.89 - Other specified personal risk factors, not elsewhere classified SNOMED: 949632726 (7) Protein-calorie malnutrition, severe ICD Codes: E43 - Unspecified severe protein-calorie malnutrition SNOMED: 136130889, 790881356, 352144405 (8) Feeding by G-tube ICD Codes: Z93.1 - Gastrostomy status SNOMED: 607037229, 518519611, 810766825 Respiratory: adjust tidal volume, monitor respiratory rate, adjust FIO2, CXR Cardiac: continue pressors Renal: F/U I&O, keep IV fluid, check electrolytes Infectious Disease: check cultures Gastrointestinal: hold feedings Endocrine: monitor blood sugar Hematologic: monitor H/H, transfuse if hgb<8.5 Neurologic: PRN Ativan, keep patient comfortable Affect: PRN ativan Prophylaxis: Protonix Disposition: keep in ICU Notes Reviewed: marketing planner, cardio, renal Discussed with: nurses, consultants, egg caser Dennis Woodall MD Jan 22, 2020 12:36
--- NOTE | 2020-01-22 12:37 | Consultation ---
History of Present Illness General Date patient seen: Jan 22, 2020 Chief Complaint: Dyspnea/Respdistress Present Illness HPI 84 y/o M with hx of COPD, Dementia, non verbal, functional quadriplegia, chronic resp failure s/p trach/vent dependent, SNF resident ([facility]) presented to ED on 01/22/20 with hypoxia, increased respiratory rate Allergies: Coded Allergies: NSAIDS (NON-STEROIDAL ANTI-INFLAMMA (Unverified Allergy, Unknown, 11/27/18) PIPERACILLIN (Unverified Allergy, Unknown, 01/25/19) tolerates carbapenem TAZOBACTAM (Unverified Allergy, Unknown, 11/27/18) Uncoded Allergies: NSAID (Allergy, Unknown, 09/14/18) Medication History Scheduled Ascorbic Acid* (Ascorbic Acid*), 500 MG GT DAILY, (Reported) Baclofen* (Baclofen*), 10 MG GT TWICE A DAY, (Reported) Balsam Yuan/[place] Oil (Venelex Ointment), 60 GM TP DAILY, (Reported) Bisacodyl* (Dulcolax*), 10 MG GT DAILY, (Reported) Cranberry Extract (Cranberry), 425 MG GT DAILY, (Reported) Docusate Sodium* (Docusate Sodium*), 250 MG GT TWICE A DAY, (Reported) Ferrous Sulfate* (Ferrous Sulfate*), 325 MG GT DAILY, (Reported) Lidocaine Patch* (Lidoderm Patch*), 1 PATCH TOPIC DAILY, (Reported) Methadone Hcl* (Methadone*), 2.5 MG GT DAILY, (Reported) Mirtazapine* (Remeron*), 7.5 MG GT BEDTIME, (Reported) Multivitamin With Minerals (Multivitamins With Minerals*), 1 TAB ORAL DAILY, ( Reported) Scheduled PRN Acetaminophen 160MG/5ML* (Acetaminophen*), 5 ML ORAL THREE TIMES A DAY PRN for Fever/Headache/Mild Pain, (Reported) Albuterol Sulfate* (Albuterol Sulfate Hhn*), 3 ML INH Q4H PRN for Shortness of Breath, (Reported) Hydromorphone Hcl (Hydromorphone Hcl), 8 MG ORAL EVERY 4 HOURS PRN for Moderate Pain (Pain Scale 4-6), (Reported) Miscellaneous Medications Hydromorphone HCl/Pf (Dilaudid 2 mg/ml Syringe), 2 MG GT, (Reported) Insulin Regular, Human (Humulin R), 0 SUBQ, (Reported) Mineral Oil (Mineral Oil Enema), 133 ML RC, (Reported) Naloxone HCl (Narcan), 4 MG NS, (Reported) Petrolatum,White/Lanolin (Vitamin A & D Ointment), 113 GM TP, (Reported) Sennosides (Senna), 8.6 MG GT, (Reported) [Calazime], TOPIC, (Reported) [Santyl], TOPIC, (Reported) Patient History Healthcare decision maker Resuscitation status Advanced Directive on File Patient History Narrative PMhx: as above Shx: reviewed Fhx: non contributory Physical Exam Physical Exam Narrative General Appearance: lethargic, Chronically Ill Head: normocephalic ENT: dry mucus membranes, trach to vent Neck: limited range of motion, tracheotomy Respiratory: decreased breath sounds Cardiovascular #1: Tachycardic Gastrointestinal: non tender, soft, GT tube in place Neurologic: Not moving extremities Skin: Multiple decubitus Last 24 Hour Vital Signs Date Time Temp Pulse Resp B/P (MAP) Pulse Ox O2 Delivery O2 Flow Rate FiO2 01/22/20 09:30 86 25 98/61 (73) 99 01/22/20 09:15 87 22 102/61 (75) 100 01/22/20 09:00 88 23 98/64 (75) 99 01/22/20 08:55 55.0 01/22/20 08:55 Mechanical Ventilator 01/22/20 08:45 89 22 95/59 (71) 99 01/22/20 08:34 97.5 90 26 90/58 (69) 100 01/22/20 08:30 86 25 100 Mechanical Ventilator 40 01/22/20 08:30 97.8 94 28 96/63 97 Mechanical Ventilator 55 01/22/20 08:30 86 25 40 01/22/20 07:39 93 28 55 01/22/20 07:16 97.8 94 27 96/63 97 Mechanical Ventilator 40 01/22/20 06:55 88 26 106/57 98 Mechanical Ventilator 01/22/20 06:55 106/57 01/22/20 06:40 99 26 123/78 99 Mechanical Ventilator 01/22/20 06:40 123/78 01/22/20 06:25 78/42 7/19/20 06:25 97 26 78/52 97 Mechanical Ventilator 01/22/20 06:00 97.8 98 26 91/50 96 Mechanical Ventilator 01/22/20 05:11 88 26 90/52 96 Mechanical Ventilator 40 01/22/20 05:10 55 01/22/20 04:49 97.9 86 26 62/48 94 Mechanical Ventilator 40 01/22/20 03:40 98 30 Mechanical Ventilator 40 01/22/20 03:40 97.9 88 30 100/82 96 Mechanical Ventilator 40 01/22/20 03:33 98 30 40 01/22/20 03:17 97.9 101 15 100/82 (88) 96 Ambu-Bag Intake and Output 01/21/20 01/22/20 19:00 07:00 Intake Total 2200 ml Balance 2200 ml Intake IV Total 2200 ml Laboratory Tests Test 01/22/20 03:30 01/22/20 05:10 01/22/20 09:40 White Blood Count 21.6 K/UL (4.8-10.8) H 35.6 K/UL (4.8-10.8) #*H Red Blood Count 2.99 M/UL (4.70-6.10) L 2.65 M/UL (4.70-6.10) L Hemoglobin 9.1 G/DL (14.2-18.0) L 7.9 G/DL (14.2-18.0) L Hematocrit 30.0 % (42.0-52.0) L 26.5 % (42.0-52.0) L Mean Corpuscular Volume 100 FL (80-99) H 100 FL (80-99) H Mean Corpuscular Hemoglobin 30.6 PG (27.0-31.0) 29.7 PG (27.0-31.0) Mean Corpuscular Hemoglobin Concent 30.5 G/DL (32.0-36.0) L 29.7 G/DL (32.0-36.0) L Red Cell Distribution Width 16.1 % (11.6-14.8) H 15.6 % (11.6-14.8) H Platelet Count 34 K/UL (150-450) L 79 K/UL (150-450) #L Mean Platelet Volume 10.2 FL (6.5-10.1) H 7.3 FL (6.5-10.1) Neutrophils (%) (Auto) % (45.0-75.0) % (45.0-75.0) Lymphocytes (%) (Auto) % (20.0-45.0) % (20.0-45.0) Monocytes (%) (Auto) % (1.0-10.0) % (1.0-10.0) Eosinophils (%) (Auto) % (0.0-3.0) % (0.0-3.0) Basophils (%) (Auto) % (0.0-2.0) % (0.0-2.0) Differential Total Cells Counted 100 100 Neutrophils % (Manual) 96 % (45-75) H 88 % (45-75) H Lymphocytes % (Manual) 2 % (20-45) L 1 % (20-45) L Monocytes % (Manual) 2 % (1-10) 2 % (1-10) Eosinophils % (Manual) 0 % (0-3) 0 % (0-3) Basophils % (Manual) 0 % (0-2) 0 % (0-2) Band Neutrophils 0 % (0-8) 9 % (0-8) H Platelet Estimate Decreased L Decreased L Platelet Morphology Normal Normal Clumped Platelets 2+ Hypochromasia 2+ 3+ Anisocytosis 1+ 1+ Urine Color Pale yellow Urine Appearance Cloudy Urine pH 8 (4.5-8.0) Urine Specific [place] 1.010 (1.005-1.035) Urine Protein 3+ (NEGATIVE) H Urine Glucose (UA) Negative (NEGATIVE) Urine Ketones Negative (NEGATIVE) Urine Blood 3+ (NEGATIVE) H Urine Nitrite Negative (NEGATIVE) Urine Bilirubin Negative (NEGATIVE) Urine Urobilinogen Normal MG/DL (0.0-1.0) Urine Leukocyte Esterase 3+ (NEGATIVE) H Urine RBC 5-10 /HPF (0 - 0) H Urine WBC 10-15 /HPF (0 - 0) H Urine Squamous Epithelial Cells Occasional /LPF Urine Amorphous Sediment Moderate /LPF (NONE) H Urine Bacteria Many /HPF (NONE) H Urine Mucus Few /LPF (NONE/OCC) H Sodium Level 151 MMOL/L (136-145) H 153 MMOL/L (136-145) H Potassium Level 5.8 MMOL/L (3.5-5.1) H 5.6 MMOL/L (3.5-5.1) H Chloride Level 117 MMOL/L (98-107) H 120 MMOL/L (98-107) H Carbon Dioxide Level 24 MMOL/L (21-32) 18 MMOL/L (21-32) L Anion Gap 10 mmol/L (5-15) 15 mmol/L (5-15) Blood Urea Nitrogen 168 mg/dL (7-18) H 162 mg/dL (7-18) H Creatinine 3.5 MG/DL (0.55-1.30) H 3.3 MG/DL (0.55-1.30) H Estimat Glomerular Filtration Rate 16.9 mL/min (>60) 18.0 mL/min (>60) Glucose Level 124 MG/DL (74-106) H 64 MG/DL (74-106) L Lactic Acid Level 0.50 mmol/L (0.4-2.0) Calcium Level 9.4 MG/DL (8.5-10.1) 8.8 MG/DL (8.5-10.1) Phosphorus Level 2.4 MG/DL (2.5-4.9) L 1.7 MG/DL (2.5-4.9) L Magnesium Level 1.8 MG/DL (1.8-2.4) 1.7 MG/DL (1.8-2.4) L Total Bilirubin 0.2 MG/DL (0.2-1.0) 0.3 MG/DL (0.2-1.0) Aspartate Amino Transf (AST/SGOT) 48 U/L (15-37) H 42 U/L (15-37) H Alanine Aminotransferase (ALT/SGPT) 49 U/L (12-78) 48 U/L (12-78) Alkaline Phosphatase 144 U/L (46-116) H 97 U/L (46-116) Total Creatine Kinase 29 U/L (26-308) 42 U/L (26-308) Creatine Kinase MB 1.8 NG/ML (0.0-3.6) Creatine Kinase MB Relative Index 6.2 Troponin I 0.075 ng/mL (0.000-0.056) Total Protein 9.0 G/DL (6.4-8.2) H 7.3 G/DL (6.4-8.2) Albumin 1.4 G/DL (3.4-5.0) L 1.3 G/DL (3.4-5.0) L Globulin 7.6 g/dL 6.0 g/dL Albumin/Globulin Ratio 0.2 (1.0-2.7) L 0.2 (1.0-2.7) L Lipase 60 U/L (73-393) L Arterial Blood pH 7.317 (7.350-7.450) Arterial Blood Partial Pressure CO2 41.1 mmHg (35.0-45.0) Arterial Blood Partial Pressure O2 59.9 mmHg (75.0-100.0) L Arterial Blood HCO3 20.6 mmol/L (22.0-26.0) L Arterial Blood Oxygen Saturation 91.3 % (95-100) L Arterial Blood Base Excess -5.2 (-2-2) L Behzad Test Positive Uric Acid 6.9 MG/DL (2.6-7.2) Gamma Glutamyl Transpeptidase 40 U/L (5-85) C-Reactive Protein, Quantitative 34.5 mg/dL (0.00-0.90) H Pro-B-Type Natriuretic Peptide > 54044 pg/mL (0-125) H Microbiology Date/Time Source Procedure Growth Status 01/22/20 04:10 Nasopharynx SARS-CoV-2 RdRp Gene Assay - Final Complete 01/22/20 04:00 Rectum Received Height (Feet): 5 Height (Inches): 5.00 Weight (Pounds): 141 Medications Current Medications Medications (Trade) Dose Ordered Sig/Margarette Route PRN Reason Start Time Stop Time Status Last Admin Dose Admin Acetaminophen (Tylenol) 650 mg Q4H PRN ORAL fever 01/22/20 08:15 02/21/20 08:14 Albuterol/ Ipratropium (Albuterol/ Ipratropium) 3 ml Q4H PRN HHN Shortness of Breath 01/22/20 08:15 01/27/20 08:14 Amikacin Sulfate / Sodium Chloride 110 ml @ 110 mls/hr Q24H IV 01/22/20 23:45 01/29/20 23:44 UNV Dextrose/Sodium Chloride 1,000 ml @ 125 mls/hr Q8H IV 01/22/20 11:30 02/21/20 11:29 01/22/20 11:33 Ertapenem 1 gm/ Sodium Chloride 55 ml @ 110 mls/hr Q24H IV 01/22/20 23:45 01/27/20 23:44 UNV Heparin Sodium (Porcine) (Heparin 5000 units/ml) 5,000 units EVERY 12 HOURS SUBQ 01/22/20 09:00 03/07/20 08:59 UNV Lorazepam (Ativan 2mg/ml 1ml) 2 mg Q2H PRN IV For Anxiety 01/22/20 08:15 01/29/20 08:14 Magnesium Sulfate 100 ml @ 100 mls/hr Q1H IVPB 01/22/20 11:30 01/22/20 13:29 01/22/20 11:50 Morphine Sulfate (Morphine Sulfate) 4 mg Q4H PRN IVP Severe Pain (Pain Scale 7-10) 01/22/20 08:15 01/29/20 08:14 Norepinephrine Bitartrate 250 ml @ 0 mls/hr Q24H IV 01/22/20 15:00 04/21/20 14:59 Ondansetron HCl (Zofran) 4 mg Q6H PRN IVP Nausea & Vomiting 01/22/20 08:15 02/21/20 08:14 Pantoprazole (Protonix) 40 mg Q12HR IV 01/22/20 09:30 02/21/20 09:29 01/22/20 11:32 Phosphorus (Phospha 250 Neutral) 250 mg THREE TIMES A DAY GT 01/22/20 13:00 02/21/20 12:59 Polyethylene Glycol (Miralax) 17 gm DAILYPRN PRN ORAL Constipation 01/22/20 08:15 02/21/20 08:14 Vancomycin HCl (Vanco pharmacy to dose) 1 ea DAILY PRN [facility] TO DOSE 01/22/20 08:45 02/21/20 08:44 Assessment/Plan Assessment/Plan: Abx: IV Vancomycin 01/21- Amikacin 01/21- Ertapenem 01/21- Flagyl x1 01/21 Levaquinx 1 x1 01/21 Assessment: Severe sepsis Pneumonia- r.o COVID19 Acute on chronic respiratory failure - SP trach/vent dependant -01/21 rapid COVID Afebrile Severe leukocytosis; worsening R.o Probable bactereima probable UTI -u/a wbc 10-15, nit neg, leuk +3; ucx p Hypernatremia Hyperkalemia FRIDA Elevated AST, mild 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) Plan: -Continue empiric IV Vancomycin and Amikacin #1 -Switch Ertapenem #1 to Meropenem #1 -hx of MDRO -f/u cx -Monitor CBC/CMP, temperatures -sp cx -COVID19 isolation and testing; send COVID PCR -ICU/trach/PEG care -aspiration precautions Thank you for consulting [facility]. Will continue to follow along with you. Discussed Lilly Corrales RN., M.D. Jan 22, 2020 12:37
[2020-01-22] MEDS: Phospha 250 Neutral tab GT SCH ×2 (13:04→17:43)
--- NOTE | 2020-01-22 13:43 | Diagnostic Imaging Report ---
EXAM: XR Chest, 1 View CLINICAL HISTORY: IV TECHNIQUE: Frontal view of the chest. COMPARISON: Chest x-ray obtained earlier on 01/22/20@6:07 AM FINDINGS: Lungs: Unremarkable. The lungs appear clear. No focal consolidation. Pleural space: Mild to moderate left pleural effusion. Heart: No significant change in prominent interstitial markings and retrocardiac opacity. Mediastinum: Unremarkable. Bones/joints: Unremarkable. Tubes, lines and devices: Note again made of left subclavian central venous catheter with the tip looping back upon itself and pointing laterally to the right. Tracheostomy tube in place. Telemetry leads overlie the thorax. IMPRESSION: 1. No significant interval change compared to the prior exam. 2. Note again made of left subclavian central venous catheter with the tip looping back upon itself and pointing laterally to the right. 3. No significant change in prominent interstitial markings and retrocardiac opacity. 4. Mild to moderate left pleural effusion.
[2020-01-22] MEDS ORDERED: Amikacin Rx to dose MISC PRN (13:45)
[2020-01-22] MEDS: Meropenem 500 MG in NS 55 ML IVPB SCH (14:30)
[2020-01-22] MEDS: Norepinephrine 4mg/NS Premix 250 ML IV SCH (14:30)
--- NOTE | 2020-01-22 14:35 | Consultation ---
History of Present Illness General Date patient seen: Jan 22, 2020 Chief Complaint: Dyspnea/Respdistress Present Illness HPI This is an 84-year-old male known to me from prior admission who I have cared for before that presented to [facility] from facility for worsening patient's. Patient has identified be hypoxic. Initial cotesting negative. Admitted for further care and management to the intensive care unit [facility]. Leukocytosis sepsis abnormal labs chest x-ray noted. On admission malnutrition low body weight noted. Continues to have decubitus ulcers requiring care and management. Surgery called to assist with care and management. Patient seen, patient evaluate, chart reviewed. Patient is trach dependent tracheostomy is okay on vent support. Right subclavian line identified recent placement likely noted. Patient unable to participate examination or give history. Abnormal labs Allergies: Coded Allergies: NSAIDS (NON-STEROIDAL ANTI-INFLAMMA (Unverified Allergy, Unknown, 11/27/18) PIPERACILLIN (Unverified Allergy, Unknown, 01/25/19) tolerates carbapenem TAZOBACTAM (Unverified Allergy, Unknown, 11/27/18) Uncoded Allergies: NSAID (Allergy, Unknown, 09/14/18) Medication History Scheduled Ammonium Lactate (Ammonium Lactate), Unknown Dose TP DAILY, (Reported) Betamethasone Dip (Betamethasone Dipropionate), 1 APPLIC TOPIC BID, (Reported) Chlorhexidine Gluconate (Peridex), 15 ML MM BID, (Reported) Ferrous Sulfate (Ferrous Sulfate), 325 MG GT BID, (Reported) Hydromorphone Hcl (Hydromorphone Hcl), 2 MG GT DAILY, (Reported) Lidocaine Patch* (Lidoderm Patch*), 1 PATCH TOPIC DAILY, (Reported) Methadone Hcl* (Methadone*), 2.5 MG GT DAILY, (Reported) Mirtazapine* (Remeron*), 7.5 MG GT BEDTIME, (Reported) Scheduled PRN Acetaminophen 160MG/5ML* (Acetaminophen*), 20.3 ML GT Q4HR PRN for Fever/ Headache/Mild Pain, (Reported) Albuterol Sulfate* (Albuterol Sulfate Hhn*), 3 ML INH Q4H PRN for Shortness of Breath, (Reported) Hydromorphone Hcl (Hydromorphone Hcl), 2 MG GT Q12HR PRN for For Pain, (Reported ) Naloxone HCl (Narcan), 4 MG NS EVERY 2 MINS PRN for RESP DEPRESSION, (Reported) Miscellaneous Medications Glycopyrrolate in Water/Pf (Glycopyrrolate 1 mg/5 ml Syrng), 1 MG GT, (Reported) [Calazime], TOPIC, (Reported) [Santyl], TOPIC, (Reported) Discontinued Medications Ascorbic Acid* (Ascorbic Acid*), 500 MG GT DAILY, (Reported) Discontinued Reason: Therapy completed Baclofen* (Baclofen*), 10 MG GT TWICE A DAY, (Reported) Discontinued Reason: Therapy completed Balsam Yuan/[place] Oil (Venelex Ointment), 60 GM TP DAILY, (Reported) Discontinued Reason: Therapy completed Bisacodyl* (Dulcolax*), 10 MG GT DAILY, (Reported) Discontinued Reason: Therapy completed Cranberry Extract (Cranberry), 425 MG GT DAILY, (Reported) Discontinued Reason: Therapy completed Docusate Sodium* (Docusate Sodium*), 250 MG GT TWICE A DAY, (Reported) Discontinued Reason: Therapy completed Ferrous Sulfate* (Ferrous Sulfate*), 325 MG GT DAILY, (Reported) Discontinued Reason: Prescription changed Hydromorphone HCl/Pf (Dilaudid 2 mg/ml Syringe), 2 MG GT, (Reported) Discontinued Reason: Prescription changed Hydromorphone Hcl (Hydromorphone Hcl), 8 MG ORAL EVERY 4 HOURS PRN for Moderate Pain (Pain Scale 4-6), (Reported) Discontinued Reason: Prescription changed Insulin Regular, Human (Humulin R), 0 SUBQ, (Reported) Discontinued Reason: Therapy completed Mineral Oil (Mineral Oil Enema), 133 ML RC, (Reported) Discontinued Reason: Therapy completed Multivitamin With Minerals (Multivitamins With Minerals*), 1 TAB ORAL DAILY, ( Reported) Discontinued Reason: Therapy completed Petrolatum,White/Lanolin (Vitamin A & D Ointment), 113 GM TP, (Reported) Discontinued Reason: Therapy completed Sennosides (Senna), 8.6 MG GT, (Reported) Discontinued Reason: Therapy completed Patient History Limited by: medical condition History Provided By: Medical Record, PMD Healthcare decision maker Resuscitation status Advanced Directive on File Past Medical/Surgical History Past Medical/Surgical History: (1) Decubitus skin ulcer (2) Dehydration (3) Urinary tract infection (4) Ventilator dependent (5) Bilateral pleural effusion (6) funtional quadriplegia (7) Sepsis (8) Chronic respiratory failure (9) Pneumonia (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 (11) Acute on chronic respiratory failure (12) Feeding by G-tube (13) Protein-calorie malnutrition, severe (14) At high risk for aspiration (15) ATN (acute tubular necrosis) (16) Severe anemia (17) Encephalopathy acute Review of Systems ROS Narrative Unable to obtain given patient's baseline medical condition Physical Exam General Appearance: moderate distress Lines, tubes and drains: central line, gtube, lira cath Neck: trach Respiratory/Chest: decreased breath sounds, on vent Abdomen: no organomegaly, no mass, feeding tube, other Genitourinary/Rectal: decreased rectal tone Extremities: inflammation, slow capillary refill, other Skin Exam: other Neurologic: unresponsiveness Last 24 Hour Vital Signs Date Time Temp Pulse Resp B/P (MAP) Pulse Ox O2 Delivery O2 Flow Rate FiO2 01/22/20 12:00 Mechanical Ventilator 01/22/20 12:00 97.6 79 24 97/54 (68) 100 01/22/20 11:35 79 23 40 01/22/20 11:30 80 24 105/64 (78) 100 01/22/20 11:00 80 22 104/55 (71) 100 01/22/20 10:30 81 23 102/63 (76) 100 01/22/20 10:00 81 24 97/60 (72) 100 01/22/20 09:30 86 25 98/61 (73) 99 01/22/20 09:15 87 22 102/61 (75) 100 01/22/20 09:00 88 23 98/64 (75) 99 01/22/20 08:55 55.0 01/22/20 08:55 Mechanical Ventilator 01/22/20 08:45 89 22 95/59 (71) 99 01/22/20 08:34 97.5 90 26 90/58 (69) 100 01/22/20 08:30 86 25 100 Mechanical Ventilator 40 01/22/20 08:30 97.8 94 28 96/63 97 Mechanical Ventilator 55 01/22/20 08:30 86 25 40 01/22/20 07:39 93 28 55 01/22/20 07:16 97.8 94 27 96/63 97 Mechanical Ventilator 40 01/22/20 06:55 88 26 106/57 98 Mechanical Ventilator 01/22/20 06:55 106/57 01/22/20 06:40 99 26 123/78 99 Mechanical Ventilator 01/22/20 06:40 123/78 01/22/20 06:25 78/42 01/22/20 06:25 97 26 78/52 97 Mechanical Ventilator 01/22/20 06:00 97.8 98 26 91/50 96 Mechanical Ventilator 01/22/20 05:11 88 26 90/52 96 Mechanical Ventilator 40 01/22/20 05:10 55 01/22/20 04:49 97.9 86 26 62/48 94 Mechanical Ventilator 40 01/22/20 03:40 98 30 Mechanical Ventilator 40 01/22/20 03:40 97.9 88 30 100/82 96 Mechanical Ventilator 40 01/22/20 03:33 98 30 40 01/22/20 03:17 97.9 101 15 100/82 (88) 96 Ambu-Bag Intake and Output 01/21/20 01/22/20 19:00 07:00 Intake Total 2200 ml Balance 2200 ml Intake IV Total 2200 ml Laboratory Tests Test 01/22/20 03:30 01/22/20 05:10 01/22/20 09:40 White Blood Count 21.6 K/UL (4.8-10.8) H 35.6 K/UL (4.8-10.8) #*H Red Blood Count 2.99 M/UL (4.70-6.10) L 2.65 M/UL (4.70-6.10) L Hemoglobin 9.1 G/DL (14.2-18.0) L 7.9 G/DL (14.2-18.0) L Hematocrit 30.0 % (42.0-52.0) L 26.5 % (42.0-52.0) L Mean Corpuscular Volume 100 FL (80-99) H 100 FL (80-99) H Mean Corpuscular Hemoglobin 30.6 PG (27.0-31.0) 29.7 PG (27.0-31.0) Mean Corpuscular Hemoglobin Concent 30.5 G/DL (32.0-36.0) L 29.7 G/DL (32.0-36.0) L Red Cell Distribution Width 16.1 % (11.6-14.8) H 15.6 % (11.6-14.8) H Platelet Count 34 K/UL (150-450) L 79 K/UL (150-450) #L Mean Platelet Volume 10.2 FL (6.5-10.1) H 7.3 FL (6.5-10.1) Neutrophils (%) (Auto) % (45.0-75.0) % (45.0-75.0) Lymphocytes (%) (Auto) % (20.0-45.0) % (20.0-45.0) Monocytes (%) (Auto) % (1.0-10.0) % (1.0-10.0) Eosinophils (%) (Auto) % (0.0-3.0) % (0.0-3.0) Basophils (%) (Auto) % (0.0-2.0) % (0.0-2.0) Differential Total Cells Counted 100 100 Neutrophils % (Manual) 96 % (45-75) H 88 % (45-75) H Lymphocytes % (Manual) 2 % (20-45) L 1 % (20-45) L Monocytes % (Manual) 2 % (1-10) 2 % (1-10) Eosinophils % (Manual) 0 % (0-3) 0 % (0-3) Basophils % (Manual) 0 % (0-2) 0 % (0-2) Band Neutrophils 0 % (0-8) 9 % (0-8) H Platelet Estimate Decreased L Decreased L Platelet Morphology Normal Normal Clumped Platelets 2+ Hypochromasia 2+ 3+ Anisocytosis 1+ 1+ Urine Color Pale yellow Urine Appearance Cloudy Urine pH 8 (4.5-8.0) Urine Specific [place] 1.010 (1.005-1.035) Urine Protein 3+ (NEGATIVE) H Urine Glucose (UA) Negative (NEGATIVE) Urine Ketones Negative (NEGATIVE) Urine Blood 3+ (NEGATIVE) H Urine Nitrite Negative (NEGATIVE) Urine Bilirubin Negative (NEGATIVE) Urine Urobilinogen Normal MG/DL (0.0-1.0) Urine Leukocyte Esterase 3+ (NEGATIVE) H Urine RBC 5-10 /HPF (0 - 0) H Urine WBC 10-15 /HPF (0 - 0) H Urine Squamous Epithelial Cells Occasional /LPF Urine Amorphous Sediment Moderate /LPF (NONE) H Urine Bacteria Many /HPF (NONE) H Urine Mucus Few /LPF (NONE/OCC) H Sodium Level 151 MMOL/L (136-145) H 153 MMOL/L (136-145) H Potassium Level 5.8 MMOL/L (3.5-5.1) H 5.6 MMOL/L (3.5-5.1) H Chloride Level 117 MMOL/L (98-107) H 120 MMOL/L (98-107) H Carbon Dioxide Level 24 MMOL/L (21-32) 18 MMOL/L (21-32) L Anion Gap 10 mmol/L (5-15) 15 mmol/L (5-15) Blood Urea Nitrogen 168 mg/dL (7-18) H 162 mg/dL (7-18) H Creatinine 3.5 MG/DL (0.55-1.30) H 3.3 MG/DL (0.55-1.30) H Estimat Glomerular Filtration Rate 16.9 mL/min (>60) 18.0 mL/min (>60) Glucose Level 124 MG/DL (74-106) H 64 MG/DL (74-106) L Lactic Acid Level 0.50 mmol/L (0.4-2.0) Calcium Level 9.4 MG/DL (8.5-10.1) 8.8 MG/DL (8.5-10.1) Phosphorus Level 2.4 MG/DL (2.5-4.9) L 1.7 MG/DL (2.5-4.9) L Magnesium Level 1.8 MG/DL (1.8-2.4) 1.7 MG/DL (1.8-2.4) L Total Bilirubin 0.2 MG/DL (0.2-1.0) 0.3 MG/DL (0.2-1.0) Aspartate Amino Transf (AST/SGOT) 48 U/L (15-37) H 42 U/L (15-37) H Alanine Aminotransferase (ALT/SGPT) 49 U/L (12-78) 48 U/L (12-78) Alkaline Phosphatase 144 U/L (46-116) H 97 U/L (46-116) Total Creatine Kinase 29 U/L (26-308) 42 U/L (26-308) Creatine Kinase MB 1.8 NG/ML (0.0-3.6) Creatine Kinase MB Relative Index 6.2 Troponin I 0.075 ng/mL (0.000-0.056) Total Protein 9.0 G/DL (6.4-8.2) H 7.3 G/DL (6.4-8.2) Albumin 1.4 G/DL (3.4-5.0) L 1.3 G/DL (3.4-5.0) L Globulin 7.6 g/dL 6.0 g/dL Albumin/Globulin Ratio 0.2 (1.0-2.7) L 0.2 (1.0-2.7) L Lipase 60 U/L (73-393) L Arterial Blood pH 7.317 (7.350-7.450) Arterial Blood Partial Pressure CO2 41.1 mmHg (35.0-45.0) Arterial Blood Partial Pressure O2 59.9 mmHg (75.0-100.0) L Arterial Blood HCO3 20.6 mmol/L (22.0-26.0) L Arterial Blood Oxygen Saturation 91.3 % (95-100) L Arterial Blood Base Excess -5.2 (-2-2) L Behzad Test Positive Uric Acid 6.9 MG/DL (2.6-7.2) Gamma Glutamyl Transpeptidase 40 U/L (5-85) C-Reactive Protein, Quantitative 34.5 mg/dL (0.00-0.90) H Pro-B-Type Natriuretic Peptide > 45451 pg/mL (0-125) H Microbiology Date/Time Source Procedure Growth Status 01/22/20 04:10 Nasopharynx SARS-CoV-2 RdRp Gene Assay - Final Complete 01/22/20 04:00 Rectum Received Height (Feet): 5 Height (Inches): 5.00 Weight (Pounds): 141 Medications Current Medications Medications (Trade) Dose Ordered Sig/Margarette Route PRN Reason Start Time Stop Time Status Last Admin Dose Admin Acetaminophen (Tylenol) 650 mg Q4H PRN ORAL fever 01/22/20 08:15 02/21/20 08:14 Albuterol/ Ipratropium (Albuterol/ Ipratropium) 3 ml Q4H PRN HHN Shortness of Breath 01/22/20 08:15 01/27/20 08:14 Amikacin Protocol (Amikacin pharmacy to dose) 1 ea DAILY PRN MISC . 01/22/20 13:45 02/21/20 13:44 Amikacin Sulfate 500 mg/Sodium Chloride 112 ml @ 112 mls/hr Q24H IV 01/22/20 17:00 01/22/20 23:59 Dextrose/Sodium Chloride 1,000 ml @ 125 mls/hr Q8H IV 01/22/20 11:30 02/21/20 11:29 01/22/20 11:33 Heparin Sodium (Porcine) (Heparin 5000 units/ml) 5,000 units EVERY 12 HOURS SUBQ 01/22/20 09:00 03/07/20 08:59 UNV Lorazepam (Ativan 2mg/ml 1ml) 2 mg Q2H PRN IV For Anxiety 01/22/20 08:15 01/29/20 08:14 Meropenem 500 mg/ Sodium Chloride 55 ml @ 110 mls/hr Q12H IVPB 01/22/20 14:00 01/27/20 13:59 Morphine Sulfate (Morphine Sulfate) 4 mg Q4H PRN IVP Severe Pain (Pain Scale 7-10) 01/22/20 08:15 01/29/20 08:14 Norepinephrine Bitartrate 250 ml @ 0 mls/hr Q24H IV 01/22/20 15:00 04/21/20 14:59 Ondansetron HCl (Zofran) 4 mg Q6H PRN IVP Nausea & Vomiting 01/22/20 08:15 02/21/20 08:14 Pantoprazole (Protonix) 40 mg Q12HR IV 01/22/20 09:30 02/21/20 09:29 01/22/20 11:32 Phosphorus (Phospha 250 Neutral) 250 mg THREE TIMES A DAY GT 01/22/20 13:00 02/21/20 12:59 01/22/20 13:04 Polyethylene Glycol (Miralax) 17 gm DAILYPRN PRN ORAL Constipation 01/22/20 08:15 02/21/20 08:14 Vancomycin HCl (Vanco pharmacy to dose) 1 ea DAILY PRN MISC PHARMACY TO DOSE 01/22/20 08:45 02/21/20 08:44 Assessment/Plan Problem List: (1) Dehydration ICD Codes: E86.0 - Dehydration SNOMED: 36417326 (2) Urinary tract infection ICD Codes: N39.0 - Urinary tract infection, site not specified SNOMED: 48766678 (3) Ventilator dependent ICD Codes: Z99.11 - Dependence on respirator [ventilator] status SNOMED: 556984825 (4) Bilateral pleural effusion ICD Codes: J90 - Pleural effusion, not elsewhere classified SNOMED: 921315414 (5) Decubitus skin ulcer Assessment & Plan: Pt presented on admission with in grossly unkempt state, with Contractures and multiple Pressure injuries.Skin turgor is poor. Color is dusky. Generalized dry,scaly skin. Gastrostomy stoma is eroded and oozing moderate amt malodorous,Black,mud consistency exudate. Clusters of Unstageabloe Pressure injury Thoracic Spine. Base of wound has multiple small islands of slough with soft erythematous bridges giving wound appearance of multiple wounds. Area measuring (L)4cm x (W)3.6cm. In close proximity, to L of thoracic spine is a Partial thickness Pressure injury(L)5cm x (W)3.5cm. Base of wound is cade with macerated borders.Small amt sanguineous exudate noted. Resolving Full thickness 4 Pressure injury R Trochanter(L)0.7cm x (W)1.2cm, slight tunneled area at 11o'clock by 0.3cm. Surrounding pink epithelial bordered by hyperpigmentation. NO odor or exudate noted. Partial thickness shearing noted over Previously compromised skin (L)9cm x (W) 10.5cm. Base of wound is erythematous with multiple Scattered satellite lesions that are oozing sanguineous exudate. Unstageable Pressure injury distally, medial R Tibia(L)1.3cm x (W)1.1 cm . Base of wound is 100% yellow slough with marginal erythematous borders. No odor or exudate noted. Xerosis skin periwound. Pressure injury R Hallux. Base of wound is 40% dry eschar ,60% pink epithelial. No exudate noted. No erythema or fluctuance periwound. R Heel is boggy with non-blanchable erythema. Wound Plantar R foot(L)0.6cm x (W)0.8cm. 100% slough at base of wound . Marginal erythema along edges. Periwound is fluctuant and erythematous. At web space between R 1st and 2nd metatarsals is a Partial Thickness wound that is cade and oozing small amt sanguineous exudate. At Plantar aspect of R 3rd metatarsal noted to be oozing small amt Sanguineous exudate. Assessment of wound is not fully appreciated secondary to clubbing of metatarsals. Swabbed with Betadine and small gauze pressure drsg applied. Resolving Pressure Injury L Heel(L)6.5cm x (W)5cm. Base of wound is 90% pink epithelial, 10% dry eschar. NO odor or exudate noted . Scattered small dry,black scabs noted to R and L dorsal aspects feet ,including dorsal aspects of metatarsals both feet. Cleanse wounds Thoracic Spine with Saline. Apply TheraHoney. Apply Cavilon Skin Barrier Periwound. Cover with Optifoam drsg.Change every 3 days and prn. Apply Moisture Barrier Paste to Buttocks. Cover with Optifoam drsg. Change every 3 days and prn. Apply Betadine to wounds both feet. Cover with Abd pads and wrap each foot with Kerlix drsg. Wash GT site with Soap and Water and apply Loose Gauze drsg Daily and prn. Cleanse wound R trochanter with saline. Apply Therahoney,Apply Cavilon Periwound. Cover with Optifoam drsg. Change every 3 days and prn. Cleanse wounds L hip and L trochanter with Saline. Apply Therahoney. Apply Cavilon periwound .Cover with Optifoam drsg every 3 days and prn. Cleanse wounds L scapula with Saline. Apply TheraHoney. Apply Cavilon periwound.Cover with Optifoam drsg every 3 days and prn. Apply Triad paste to sacrum ,groin and scrotum with each Incontinence care. Cleanse wounds R and L foot with Saline. Apply TheraHoney. Cover wounds with Abd pads and wrap both feet with Kerlix gauze every 3 days and prn. Air Fluidized mattress. Reposition at least every 2hours or as tolerated. Place pillow between knees. Off-load heels with pillow. nutritional; optimization ICD Codes: L89.90 - Pressure ulcer of unspecified site, unspecified stage SNOMED: 751874069 (6) funtional quadriplegia (7) Sepsis ICD Codes: A41.9 - Sepsis, unspecified organism SNOMED: 83265352 (8) Chronic respiratory failure ICD Codes: J96.10 - Chronic respiratory failure, unspecified whether with hypoxia or hypercapnia SNOMED: 16092625 (9) Pneumonia ICD Codes: J18.9 - Pneumonia, unspecified organism SNOMED: 497984332 (10) Acute on chronic respiratory failure ICD Codes: J96.20 - Acute and chronic respiratory failure, unspecified whether with hypoxia or hypercapnia SNOMED: 90717224 (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 ICD Codes: I33.0 - Acute and subacute infective endocarditis SNOMED: 09032842 (12) Feeding by G-tube ICD Codes: Z93.1 - Gastrostomy status SNOMED: 655682491, 938265892, 094560563 (13) Protein-calorie malnutrition, severe ICD Codes: E43 - Unspecified severe protein-calorie malnutrition SNOMED: 325347025, 878422656, 283225387 (14) At high risk for aspiration ICD Codes: Z91.89 - Other specified personal risk factors, not elsewhere classified SNOMED: 890333007 (15) ATN (acute tubular necrosis) ICD Codes: N17.0 - Acute kidney failure with tubular necrosis SNOMED: 45907770 (16) Severe anemia ICD Codes: D64.9 - Anemia, unspecified SNOMED: 415587739 (17) Encephalopathy acute ICD Codes: G93.40 - Encephalopathy, unspecified SNOMED: 84596258, 643117754 Stanislav Avelar Jan 22, 2020 14:35
[2020-01-22 15:33] LABS: APPEARANCE,URINE TURBID; BILIRUBIN, URINE NEGATIVE (NEGATIVE); COLOR,URINE PALE YELLOW; GLUCOSE, URINE (UA) NEGATIVE (NEGATIVE); KETONES,URINE NEGATIVE (NEGATIVE); LEUKOCYTE ESTERASE ,URINE 3+ (NEGATIVE); NITRITE,URINE NEGATIVE (NEGATIVE); PH,URINE 8 (4.5-8.0); PROTEIN,URINE 3+ (NEGATIVE); UROBILINOGEN,URINE NORMAL MG/DL (0.0-1.0)
[2020-01-22] MEDS ORDERED: Amikacin 500 MG in NS 110 ML IV SCH (17:00)
--- NOTE | 2020-01-22 17:37 | History & Physical ---
History and Physical History & Physicial Dictated for Int Med-DR Wolfe no. [id number]. ICU Bunny Morocho MD Jan 22, 2020 17:37
--- NOTE | 2020-01-22 20:45 | History and Physical Report ---
DATE OF ADMISSION: 01/22/2020 CHIEF COMPLAINT: The patient is an 84-year-old male, who presents with chief complaint of decreased oxygen saturation. HISTORY OF PRESENT ILLNESS: The patient is a resident of [facility]. The patient is chronic trach dependent. According to staff at [facility], the patient had decreased oxygen saturations to the 80s this morning. The patient was transferred to [facility] Emergency Room for evaluation. The patient was found to have oxygen saturation in the 80s. The patient was admitted with hypoxemic respiratory failure. REVIEW OF SYSTEMS: Unable to assess secondary to the patient's mental status. PAST MEDICAL HISTORY: Significant for: 1. Chronic respiratory failure. 2. Dysphagia. 3. Functional quadriplegia. 4. Alzheimer's dementia. 5. Chronic renal failure. PAST SURGICAL HISTORY: Significant for: 1. Tracheostomy placement. 2. PEG placement. CURRENT MEDICATIONS: 1. Albuterol 2.5 mg nebulized q.4 hours p.r.n. 2. Dilaudid 2 mg per G-tube q.4 hours p.r.n. 3. Iron sulfate 325 mg per G-tube daily. 4. Methadone 5 mg per G-tube daily. 5. Mirtazapine 15 mg per G-tube at bedtime. ALLERGIES: 1. NSAIDS. 2. PIPERACILLIN/TAZOBACTAM. SOCIAL HISTORY: The patient is and is a resident of [facility]. The patient denies tobacco or alcohol use. PHYSICAL EXAMINATION: VITAL SIGNS: Temperature 97.5, respirations 26, pulse 90, blood pressure 90/58, pulse ox 100% on 55% FiO2. GENERAL: The patient is contracted, thin-appearing male, in no apparent distress. HEENT: Eyes, pupils are equal and responsive to light and accommodation. Extraocular movements are intact. NECK: Supple without lymphadenopathy. There is trachea midline noted. There is no erythema about the trachea. CHEST: Decreased breath sounds at bilateral bases with expiratory wheezes, otherwise without rales. CARDIOVASCULAR EXAM: Tachycardic, regular rate. S1, S2 normal without murmurs, rubs, or gallops. ABDOMEN: Soft, nontender, and nondistended. Positive bowel sounds. No evidence of hepatosplenomegaly. Currently, no rebound or guarding noted. EXTREMITIES: Negative for clubbing, cyanosis, or edema. RECTAL/GENITAL: Not performed. NEUROLOGIC: Unable to assess. LABORATORY STUDIES: WBC 21.6, hemoglobin 9.1, hematocrit 30.0, platelets 34,000. Sodium 151, potassium 5.8, chloride 117, CO2 24. BUN 168, creatinine 3.5. Glucose 124. BNP elevated greater than 35,000. Troponin elevated at 0.075. Chest x-ray was reported as bilateral interstitial and airspace opacities consistent with pneumonia. ASSESSMENT: This is an 84-year-old male. 1. Hypoxemic respiratory failure. 2. Probable pneumonia. 3. Dysphagia. 4. Functional quadriplegia. 5. Alzheimer's dementia. 6. Luumc-uj-mntymok renal failure. TREATMENT: 1. Hypoxemic respiratory failure/pneumonia. A Pulmonary consultation has been obtained with Dr. Dennis Woodall. The patient is currently intubated in the intensive care unit. The patient has been started empirically on amikacin and meropenem and a rapid CCOVID-19 test was reported as negative. 2. History of dysphagia. The patient is status post PEG placement. 3. Functional quadriplegia. 4. Alzheimer's dementia. 5. Faiag-bb-zmnbpjb renal failure. A Nephrology consultation has been obtained with Dr. Ronnie Guevara. Bunny Morocho M.D. DR: FUENTES JOB#: [id number] CC:
[2020-01-22] MEDS: Heparin 5000 units/ml inj SUBQ SCH (21:06)
[2020-01-22] MEDS ORDERED: Ertapenem 1 GM in NS 55 ML IV SCH (23:45)
[2020-01-22] MEDS ORDERED: Vancomycin 1 GM in D5W 275 ML IV SCH (23:45)
[2020-01-23] VITALS (62 sets, daily range): BP systolic 72–143; BP diastolic 37–93
[2020-01-23] MEDS: Norepinephrine 4mg/NS Premix 250 ML IV SCH ×4 (01:00→23:15)
[2020-01-23] MEDS: Meropenem 500 MG in NS 55 ML IVPB SCH ×2 (01:56→14:14)
[2020-01-23] MEDS: D5 1/2NS 1,000 ML IV SCH ×3 (03:30→21:01)
[2020-01-23 04:35] LABS: HEMATOCRIT 25.6 % (42.0-52.0); HEMOGLOBIN 7.6 G/DL (14.2-18.0); MEAN CORPUSCULAR VOLUME 100 FL (80-99); RED BLOOD COUNT 2.57 M/UL (4.70-6.10); RED CELL DISTRIBUTION WIDTH 16.2 % (11.6-14.8)
[2020-01-23 04:44] LABS: INR 1.2 (0.9-1.1); WHITE BLOOD COUNT 31.3 K/UL (4.8-10.8)
[2020-01-23 04:57] LABS: ALANINE AMINOTRANSFERASE 38 U/L (12-78); ALBUMIN 1.2 G/DL (3.4-5.0); ALBUMIN/GLOBULIN RATIO 0.2 (1.0-2.7); ALKALINE PHOSPHATASE 91 U/L (46-116); ANION GAP 10 mmol/L (5-15); ASPARTATE AMINO TRANSFERASE 36 U/L (15-37); BILIRUBIN,TOTAL 0.4 MG/DL (0.2-1.0); BLOOD UREA NITROGEN 162 mg/dL (7-18); CALCIUM 9.1 MG/DL (8.5-10.1); CARBON DIOXIDE 23 MMOL/L (21-32); CHLORIDE 118 MMOL/L (98-107); CREATININE 3.5 MG/DL (0.55-1.30); SODIUM 150 MMOL/L (136-145)
[2020-01-23 05:02] LABS: PHOSPHORUS 2.8 MG/DL (2.5-4.9)
[2020-01-23 05:13] LABS: POTASSIUM 6.2 MMOL/L (3.5-5.1)
[2020-01-23] MEDS ORDERED: Sodium Polystyrene Sulfonate 15gm Powder ORAL SCH (07:00)
[2020-01-23 08:17] LABS: % IRON SATURATION 16 % (15-50); IRON 16 ug/dL (50-175); TOTAL IRON BINDING CAPACITY 97 ug/dL (250-450)
[2020-01-23 08:27] LABS: FERRITIN > 2000 NG/ML (8-388)
[2020-01-23] MEDS: Pantoprazole Inj IV SCH ×2 (08:35→21:00)
[2020-01-23] MEDS: Heparin 5000 units/ml inj SUBQ SCH ×2 (08:53→21:03)
[2020-01-23] MEDS ORDERED: Vancomycin 1gm in D5W 275ml IVPB ONE (09:00)
[2020-01-23 10:14] LABS: PLATELET COUNT 112 K/UL (150-450)
--- NOTE | 2020-01-23 10:15 | Nephrology Progress Note ---
Assessment/Plan Problem List: (1) FRIDA (acute kidney injury) (2) Sepsis (3) Ventilator dependent (4) Bilateral pleural effusion (5) Decubitus skin ulcer (6) Electrolyte imbalance Assessment: Hyperkalemia, hypernatremia Assessment FRIDA Dehydration, hypernatremia, hyperkalemia Anemia Chronic vent dependent, with superimposed acute component Bilateral pleural effusion Sepsis, leukocytosis, UTI Functional quadriplegia History of coronary artery disease and SD Multiple decubiti Chronic malnutrition Plan Patient is doing poorly. No urine output. Labs reviewed. Discussed with RN and Miles. Kayexalate given for hyperkalemia. IV D5 and a half normal saline Pressors Antibiotics Skin care Continue per consultants Monitor renal parameters Avoid nephrotoxic's Patient now DNR. No candidate for dialysis treatment due to multiple medical issues, sepsis, poor prognosis. Subjective ROS Limited/Unobtainable: Yes Objective Objective Last 24 Hour Vital Signs Date Time Temp Pulse Resp B/P (MAP) Pulse Ox O2 Delivery O2 Flow Rate FiO2 01/23/20 10:00 98 26 111/52 (71) 99 01/23/20 09:30 99 30 114/62 (79) 100 01/23/20 09:00 98 27 110/57 (74) 100 01/23/20 08:55 55.0 01/23/20 08:45 93 31 72/57 (62) 99 01/23/20 08:30 94 27 102/56 (71) 99 01/23/20 08:16 95 01/23/20 08:15 98.5 97 26 120/56 (77) 99 01/23/20 08:00 97 25 124/54 (77) 97 01/23/20 08:00 Mechanical Ventilator 01/23/20 07:46 86 26 01/23/20 07:01 94 33 40 01/23/20 07:00 92 22 79/62 (68) 98 01/23/20 06:45 93 22 92/45 (61) 98 01/23/20 06:30 94 23 100/50 (67) 98 01/23/20 06:15 93 27 103/51 (68) 98 01/23/20 06:00 95 25 98/49 (65) 99 01/23/20 05:45 94 25 98/50 (66) 98 01/23/20 05:35 96/44 01/23/20 05:30 93 24 96/44 (61) 99 01/23/20 05:15 97 28 82/37 (52) 98 01/23/20 05:00 99 22 121/49 (73) 98 01/23/20 04:45 100 26 114/50 (71) 97 01/23/20 04:30 101 24 120/57 (78) 97 01/23/20 04:15 100 26 143/88 (106) 98 01/23/20 04:00 Mechanical Ventilator 01/23/20 04:00 86 01/23/20 04:00 83 24 75/43 (54) 95 01/23/20 03:45 85 27 72/43 (53) 95 01/23/20 03:30 94 28 110/55 (73) 98 01/23/20 03:20 94 28 40 01/23/20 03:15 94 25 117/53 (74) 98 01/23/20 03:00 94 19 118/52 (74) 98 01/23/20 02:45 93 24 113/54 (73) 98 01/23/20 02:30 94 25 116/49 (71) 98 01/23/20 02:15 94 26 114/49 (70) 97 01/23/20 02:00 94 26 110/53 (72) 97 01/23/20 01:45 93 24 109/54 (72) 97 01/23/20 01:30 93 22 117/52 (73) 97 01/23/20 01:15 93 25 114/56 (75) 98 01/23/20 01:00 92 25 114/52 (72) 97 01/23/20 01:00 85/30 01/23/20 00:45 93 22 113/57 (75) 97 01/23/20 00:30 92 23 109/55 (73) 97 01/23/20 00:15 92 24 110/56 (74) 97 01/23/20 00:00 Mechanical Ventilator 01/23/20 00:00 97.8 92 24 110/59 (76) 97 01/22/20 23:45 91 22 114/53 (73) 99 01/22/20 23:42 87 26 40 01/22/20 23:30 92 25 114/54 (74) 99 01/22/20 23:15 90 19 120/63 (82) 99 20 23:00 90 21 104/47 (66) 99 20 22:45 89 24 105/71 (82) 99 20 22:30 89 22 115/54 (74) 99 01/21/20 22:15 89 25 116/57 (76) 99 20 22:00 89 25 123/56 (78) 98 20 21:45 87 20 99/65 (76) 98 20 21:30 87 24 107/58 (74) 98 20 21:15 86 23 88/44 (59) 98 20 21:00 84 21 97/47 (64) 99 20 20:45 83 26 96/47 (63) 99 20 20:30 82 26 105/56 (72) 99 01/22/20 20:15 82 25 103/50 (67) 99 01/22/20 20:00 97.8 82 21 101/52 (68) 99 01/22/20 20:00 Mechanical Ventilator 01/22/20 20:00 80 01/22/20 19:45 81 17 99/52 (68) 99 01/22/20 19:30 81 13 96/54 (68) 99 01/22/20 19:15 82 22 104/70 (81) 99 01/22/20 19:02 84 28 40 01/22/20 19:00 80 23 105/58 (74) 99 20 18:45 81 21 83/45 (58) 97 20 18:30 80 21 87/60 (69) 97 20 18:15 80 23 83/51 (62) 98 01/21/20 18:00 80 27 85/48 (60) 98 20 17:30 79 22 98/58 (71) 99 20 17:00 79 24 89/56 (67) 99 20 16:30 85 25 103/63 (76) 98 20 16:00 Mechanical Ventilator 01/22/20 16:00 97.5 76 15 96/57 (70) 99 20 15:56 76 20 15:30 75 16 98/56 (70) 99 01/22/20 15:00 76 20 105/54 (71) 99 01/22/20 15:00 76 20 105/54 (71) 99 01/22/20 14:35 79 28 40 01/22/20 14:30 74 22 93/50 (64) 99 01/22/20 14:30 101/55 01/22/20 14:00 74 28 96/57 (70) 99 01/22/20 13:30 76 24 97/55 (69) 100 01/22/20 13:00 76 22 96/56 (69) 100 01/22/20 12:30 77 22 93/53 (66) 100 01/22/20 12:24 77 01/22/20 12:00 Mechanical Ventilator 01/22/20 12:00 97.6 79 24 97/54 (68) 100 01/22/20 11:35 79 23 40 01/22/20 11:30 80 24 105/64 (78) 100 01/22/20 11:00 80 22 104/55 (71) 100 01/22/20 10:30 81 23 102/63 (76) 100 Intake and Output 01/22/20 01/23/20 19:00 07:00 Intake Total 1139.50 ml 1517.5 ml Output Total 205 ml 0 ml Balance 934.50 ml 1517.5 ml Intake IV Total 1139.50 ml 1517.5 ml Output Urine Total 205 ml 0 ml # Bowel Movements 1 Current Medications Medications (Trade) Dose Ordered Sig/Margarette Route PRN Reason Start Time Stop Time Status Last Admin Dose Admin Acetaminophen (Tylenol) 650 mg Q4H PRN ORAL fever 01/22/20 08:15 02/21/20 08:14 Albuterol/ Ipratropium (Albuterol/ Ipratropium) 3 ml Q4H PRN HHN Shortness of Breath 01/22/20 08:15 01/27/20 08:14 Amikacin Protocol (Amikacin pharmacy to dose) 1 ea DAILY PRN MISC . 01/22/20 13:45 02/21/20 13:44 Dextrose/Sodium Chloride 1,000 ml @ 125 mls/hr Q8H IV 01/22/20 11:30 02/21/20 11:29 01/23/20 03:30 Heparin Sodium (Porcine) (Heparin 5000 units/ml) 5,000 units EVERY 12 HOURS SUBQ 01/22/20 21:00 03/07/20 20:59 01/22/20 21:06 Lorazepam (Ativan 2mg/ml 1ml) 2 mg Q2H PRN IV For Anxiety 01/22/20 08:15 01/29/20 08:14 Meropenem 500 mg/ Sodium Chloride 55 ml @ 110 mls/hr Q12H IVPB 01/22/20 14:00 01/27/20 13:59 01/23/20 01:56 Morphine Sulfate (Morphine Sulfate) 4 mg Q4H PRN IVP Severe Pain (Pain Scale 7-10) 01/22/20 08:15 01/29/20 08:14 Norepinephrine Bitartrate 250 ml @ 0 mls/hr Q24H IV 01/22/20 15:00 04/21/20 14:59 01/23/20 05:35 Ondansetron HCl (Zofran) 4 mg Q6H PRN IVP Nausea & Vomiting 01/22/20 08:15 02/21/20 08:14 Pantoprazole (Protonix) 40 mg Q12HR IV 01/22/20 09:30 02/21/20 09:29 01/23/20 08:35 Polyethylene Glycol (Miralax) 17 gm DAILYPRN PRN ORAL Constipation 01/22/20 08:15 02/21/20 08:14 Vancomycin HCl ([facility] pharmacy to dose) 1 ea DAILY PRN [facility]SE 01/22/20 08:45 02/21/20 08:44 Vancomycin HCl 1 gm/Dextrose 275 ml @ 183.708 mls/hr ONCE ONCE IVPB 01/23/20 09:00 01/23/20 10:29 01/23/20 08:35 Laboratory Tests 01/22/20 14:40: Urine Color Pale yellow, Urine Appearance Turbid, Urine pH 8, Urine Specific [place] 1.010, Urine Protein 3+H, Urine Glucose (UA) Negative, Urine Ketones Negative, Urine Blood 5+H, Urine Nitrite Negative, Urine Bilirubin Negative, Urine Urobilinogen Normal, Urine Leukocyte Esterase 3+H, Urine RBC 10-15H, Urine WBC 30-40H, Urine Squamous Epithelial Cells Occasional, Urine Amorphous Sediment ManyH, Urine Bacteria ManyH, Urine Eosinophils None seen, Urine Osmolality 461H, Urine Random Creatinine [Pending], Urine Random Microalbumin [ Pending], Urine Random Sodium 75, Urine Microalbumin/Creatinine Ratio [Pending] 01/23/20 04:10: White Blood Count 31.3*H, Red Blood Count 2.57L, Hemoglobin 7.6L, Hematocrit 25.6L, Mean Corpuscular Volume 100H, Mean Corpuscular Hemoglobin 29.6, Mean Corpuscular Hemoglobin Concent 29.7L, Red Cell Distribution Width 16.2H, Platelet Count 45L, Mean Platelet Volume 8.8, Neutrophils (%) (Auto) , Lymphocytes (%) (Auto) , Monocytes (%) (Auto) , Eosinophils (%) (Auto) , Basophils (%) (Auto) , Neutrophils % (Manual) [Pending], Lymphocytes % (Manual) [Pending], Platelet Estimate [Pending], Platelet Morphology [Pending], Erythrocyte Sedimentation Rate 135H, Prothrombin Time 12.9H, Prothromb Time International Ratio 1.2H, Activated Partial Thromboplast Time 34H, Sodium Level 150H, Potassium Level 6.2*H, Chloride Level 118H, Carbon Dioxide Level 23, Anion Gap 10, Blood Urea Nitrogen 162H, Creatinine 3.5H, Estimat Glomerular Filtration Rate 16.9, Glucose Level 70L, Lactic Acid Level 1.90, Uric Acid 7.0, Calcium Level 9.1, Phosphorus Level 2.8, Magnesium Level 2.4, Iron Level 16L, Total Iron Binding Capacity 97L, Percent Iron Saturation 16, Unsaturated Iron Binding 81L, Ferritin > 2000H, Total Bilirubin 0.4, Aspartate Amino Transf (AST/ SGOT) 36, Alanine Aminotransferase (ALT/SGPT) 38, Alkaline Phosphatase 91, Total Protein 7.7, Albumin 1.2L, Globulin 6.5, Albumin/Globulin Ratio 0.2L, Amylase Level 95, Vitamin B12 Level 1659H, Folate 37.2, Random Vancomycin Level 18.5 01/23/20 07:35: Arterial Blood pH 7.308L, Arterial Blood Partial Pressure CO2 39.3, Arterial Blood Partial Pressure O2 76.9, Arterial Blood HCO3 19.3L, Arterial Blood Oxygen Saturation 95.6, Arterial Blood Base Excess -6.5L, Behzad Test Positive Height (Feet): 5 Height (Inches): 5.00 Weight (Pounds): 138 General Appearance: no apparent distress EENT: other - Trach to vent Cardiovascular: tachycardia Respiratory/Chest: decreased breath sounds Abdomen: distended Ronnie Guevara MD Jan 23, 2020 10:15
--- NOTE | 2020-01-23 11:08 | Diagnostic Imaging Report ---
Indication: Shortness of breath Technique: One view of the chest Comparison: 01/22/2020 Findings: Bilateral interstitial opacities, left basilar pleural fluid and/or consolidation, left lung volume loss appear unchanged. Tracheostomy remains. Right subclavian central venous catheter is noted, again with its tip making a hairpin loop in the expected region of the mid innominate vein, tip pointed retrograde within the right subclavian vein Impression: Unchanged, over one day, findings as above. Note persistent kinking of the central venous catheter with tip pointing retrograde in the subclavian vein
--- NOTE | 2020-01-23 11:44 | Diagnostic Imaging Report ---
Indication: Abnormal renal function tests. Abnormal liver function tests Technique: Grayscale and duplex images of the kidneys, retroperitoneum, and bladder were obtained. Comparison: none Findings: Right kidney measures 10.1 cm in length. Left kidney measures 10 cm in length. The left kidney is very poorly visualized. Right kidney demonstrates slightly increased echogenicity. There is mild right hydronephrosis. There is a right intrarenal calyceal calculus demonstrated. There is questionable mild left hydronephrosis. No focal abnormality. Normal inferior vena cava. Echogenic material occupies much of the posterior inferior bladder floor. This does not appear to be mobile and is therefore concerning for mass rather than debris. No Cunha catheter demonstrated. The bladder is distended, calculated volume 549 mL. 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 Woodall at the time of interpretation.
--- NOTE | 2020-01-23 11:59 | Pulmonolgy Critical Care Note ---
Critical Care - Asmt/Plan Problems: (1) Acute on chronic respiratory failure (2) Sepsis (3) FRIDA (acute kidney injury) (4) Dehydration (5) Encephalopathy acute (6) Ventilator dependent (7) funtional quadriplegia (8) Chronic respiratory failure (9) Protein-calorie malnutrition, severe (10) Feeding by G-tube Respiratory: monitor respiratory rate, adjust FIO2, CXR Cardiac: continue pressors, continue to monitor HR/BP Renal: F/U I&O, keep IV fluid Infectious Disease: check cultures Gastrointestinal: continue feedings/current rate Endocrine: monitor blood sugar Hematologic: monitor H/H, transfuse if hgb<8.5 Neurologic: PRN Ativan, keep patient comfortable Affect: PRN ativan Notes Reviewed: registered associate, cardio Discussed with: nurses, high risk case manager, other - D/w pts Nayla GARCIA, ex-. She was informed about renal failure and bladder mass. She didn't want comfort Care at this point. Critical Care - Objective Last 24 Hour Vital Signs Date Time Temp Pulse Resp B/P (MAP) Pulse Ox O2 Delivery O2 Flow Rate FiO2 01/23/20 11:32 100 34 40 01/23/20 11:00 100 28 116/50 (72) 98 01/23/20 10:30 99 33 115/61 (79) 99 01/23/20 10:00 98 26 111/52 (71) 99 01/23/20 09:30 99 30 114/62 (79) 100 01/23/20 09:00 98 27 110/57 (74) 100 01/23/20 08:55 55.0 01/23/20 08:45 93 31 72/57 (62) 99 01/23/20 08:30 94 27 102/56 (71) 99 01/23/20 08:16 95 01/23/20 08:15 98.5 97 26 120/56 (77) 99 01/23/20 08:00 97 25 124/54 (77) 97 01/23/20 08:00 Mechanical Ventilator 01/23/20 07:46 86 26 01/23/20 07:01 94 33 40 01/23/20 07:00 92 22 79/62 (68) 98 01/23/20 06:45 93 22 92/45 (61) 98 01/23/20 06:30 94 23 100/50 (67) 98 72020 06:15 93 27 103/51 (68) 98 20 06:00 95 25 98/49 (65) 99 72020 05:45 94 25 98/50 (66) 98 72020 05:35 96/44 7 05:30 93 24 96/44 (61) 99 2020 05:15 97 28 82/37 (52) 98 01/23/20 05:00 99 22 121/49 (73) 98 20 04:45 100 26 114/50 (71) 97 01/23/20 04:30 101 24 120/57 (78) 97 01/23/20 04:15 100 26 143/88 (106) 98 01/23/20 04:00 Mechanical Ventilator 01/23/20 04:00 86 01/23/20 04:00 83 24 75/43 (54) 95 01/23/20 03:45 85 27 72/43 (53) 95 01/23/20 03:30 94 28 110/55 (73) 98 01/23/20 03:20 94 28 40 01/23/20 03:15 94 25 117/53 (74) 98 01/23/20 03:00 94 19 118/52 (74) 98 01/23/20 02:45 93 24 113/54 (73) 98 20 02:30 94 25 116/49 (71) 98 01/23/20 02:15 94 26 114/49 (70) 97 01/23/20 02:00 94 26 110/53 (72) 97 01/23/20 01:45 93 24 109/54 (72) 97 20 01:30 93 22 117/52 (73) 97 20 01:15 93 25 114/56 (75) 98 01/23/20 01:00 92 25 114/52 (72) 97 20 01:00 85/30 720 00:45 93 22 113/57 (75) 97 20 00:30 92 23 109/55 (73) 97 01/23/20 00:15 92 24 110/56 (74) 97 01/23/20 00:00 Mechanical Ventilator 7/20/20 00:00 97.8 92 24 110/59 (76) 97 7/19/20 23:45 91 22 114/53 (73) 99 7/19/20 23:42 87 26 40 7/19/20 23:30 92 25 114/54 (74) 99 7/19/20 23:15 90 19 120/63 (82) 99 7/19/20 23:00 90 21 104/47 (66) 99 7/19/20 22:45 89 24 105/71 (82) 99 7/19/20 22:30 89 22 115/54 (74) 99 7/19/20 22:15 89 25 116/57 (76) 99 7/19/20 22:00 89 25 123/56 (78) 98 7/19/20 21:45 87 20 99/65 (76) 98 7/19/20 21:30 87 24 107/58 (74) 98 7/19/20 21:15 86 23 88/44 (59) 98 7/19/20 21:00 84 21 97/47 (64) 99 7/19/20 20:45 83 26 96/47 (63) 99 7/19/20 20:30 82 26 105/56 (72) 99 7/19/20 20:15 82 25 103/50 (67) 99 7/19/20 20:00 97.8 82 21 101/52 (68) 99 7/19/20 20:00 Mechanical Ventilator 7/20 20:00 80 7/19/20 19:45 81 17 99/52 (68) 99 7/19/20 19:30 81 13 96/54 (68) 99 7/19/20 19:15 82 22 104/70 (81) 99 7/19/20 19:02 84 28 40 7/19/20 19:00 80 23 105/58 (74) 99 7/19/20 18:45 81 21 83/45 (58) 97 7/19/20 18:30 80 21 87/60 (69) 97 7/19/20 18:15 80 23 83/51 (62) 98 7/19/20 18:00 80 27 85/48 (60) 98 7/19/20 17:30 79 22 98/58 (71) 99 7/19/20 17:00 79 24 89/56 (67) 99 7/19/20 16:30 85 25 103/63 (76) 98 01/22/20 16:00 Mechanical Ventilator 01/22/20 16:00 97.5 76 15 96/57 (70) 99 01/22/20 15:56 76 01/22/20 15:30 75 16 98/56 (70) 99 01/22/20 15:00 76 20 105/54 (71) 99 01/22/20 15:00 76 20 105/54 (71) 99 01/22/20 14:35 79 28 40 01/22/20 14:30 74 22 93/50 (64) 99 01/22/20 14:30 101/55 01/22/20 14:00 74 28 96/57 (70) 99 01/22/20 13:30 76 24 97/55 (69) 100 01/22/20 13:00 76 22 96/56 (69) 100 01/22/20 12:30 77 22 93/53 (66) 100 01/22/20 12:24 77 01/22/20 12:00 Mechanical Ventilator 01/22/20 12:00 97.6 79 24 97/54 (68) 100 Status: sedated Condition: critical HEENT: atraumatic, normocephalic Neck: full ROM Lungs: rales, rhonchi Heart: HR/BP stable Abdomen: soft, active bowel sounds Extremities: edema Micro: Microbiology Date/Time Source Procedure Growth Status 01/22/20 09:40 Blood Blood Culture - Preliminary Resulted 01/22/20 09:30 Blood Blood Culture - Preliminary Resulted 01/22/20 03:30 Blood Blood Culture - Preliminary Resulted 01/22/20 03:15 Blood Blood Culture - Preliminary Resulted 01/22/20 14:40 Sputum Gram Stain - Final Resulted 01/22/20 14:40 Sputum Sputum Culture Pending Resulted 01/22/20 04:10 Nasopharynx SARS-CoV-2 RdRp Gene Assay - Final Complete 01/22/20 03:30 Urine,Clean Catch Urine Culture - Preliminary Gram Negative Bacillus 1 Resulted 01/22/20 04:00 Rectum Received Critical Care - Subjective ROS Limited/Unobtainable: Yes Condition: critical EKG Rhythm: Sinus Rhythm FI02: 40 Vent Support Breath Rate: 16 Vent Support Mode: AC Vent Tidal Volume: 500 Sputum Amount: Scant PEEP: 5.0 PIP: 36 I&O: Intake and Output 01/22/20 01/23/20 19:00 07:00 Intake Total 1139.50 ml 1540.0 ml Output Total 205 ml 0 ml Balance 934.50 ml 1540.0 ml Intake IV Total 1139.50 ml 1540.0 ml Output Urine Total 205 ml 0 ml # Bowel Movements 1 CXR: renal US reviewed. there is probable renal mass Labs: Laboratory Tests Test 01/22/20 14:40 01/23/20 04:10 01/23/20 07:35 Urine Color Pale yellow Urine Appearance Turbid Urine pH 8 (4.5-8.0) Urine Specific [place] 1.010 (1.005-1.035) Urine Protein 3+ (NEGATIVE) H Urine Glucose (UA) Negative (NEGATIVE) Urine Ketones Negative (NEGATIVE) Urine Blood 5+ (NEGATIVE) H Urine Nitrite Negative (NEGATIVE) Urine Bilirubin Negative (NEGATIVE) Urine Urobilinogen Normal MG/DL (0.0-1.0) Urine Leukocyte Esterase 3+ (NEGATIVE) H Urine RBC 10-15 /HPF (0 - 0) H Urine WBC 30-40 /HPF (0 - 0) H Urine Squamous Epithelial Cells Occasional /LPF Urine Amorphous Sediment Many /LPF (NONE) H Urine Bacteria Many /HPF (NONE) H Urine Eosinophils None seen (NONE SEEN) Urine Osmolality 461 mOsm/kg (429-449) H Urine Random Creatinine Pending Urine Random Microalbumin Pending Urine Random Sodium 75 mmol/L (20-110) Urine Microalbumin/Creatinine Ratio Pending White Blood Count 31.3 K/UL (4.8-10.8) *H Red Blood Count 2.57 M/UL (4.70-6.10) L Hemoglobin 7.6 G/DL (14.2-18.0) L Hematocrit 25.6 % (42.0-52.0) L Mean Corpuscular Volume 100 FL (80-99) H Mean Corpuscular Hemoglobin 29.6 PG (27.0-31.0) Mean Corpuscular Hemoglobin Concent 29.7 G/DL (32.0-36.0) L Red Cell Distribution Width 16.2 % (11.6-14.8) H Platelet Count 112 K/UL (150-450) L Mean Platelet Volume 8.8 FL (6.5-10.1) Neutrophils (%) (Auto) % (45.0-75.0) Lymphocytes (%) (Auto) % (20.0-45.0) Monocytes (%) (Auto) % (1.0-10.0) Eosinophils (%) (Auto) % (0.0-3.0) Basophils (%) (Auto) % (0.0-2.0) Differential Total Cells Counted 100 Neutrophils % (Manual) 95 % (45-75) H Lymphocytes % (Manual) 2 % (20-45) L Monocytes % (Manual) 3 % (1-10) Eosinophils % (Manual) 0 % (0-3) Basophils % (Manual) 0 % (0-2) Band Neutrophils 0 % (0-8) Platelet Estimate Decreased L Platelet Morphology Clumped Platelets 1+ Hypochromasia 1+ Anisocytosis 1+ Macrocytosis 1+ Erythrocyte Sedimentation Rate 135 MM/HR (0-20) H Prothrombin Time 12.9 SEC (9.30-11.50) H Prothromb Time International Ratio 1.2 (0.9-1.1) H Activated Partial Thromboplast Time 34 SEC (23-33) H Sodium Level 150 MMOL/L (136-145) H Potassium Level 6.2 MMOL/L (3.5-5.1) *H Chloride Level 118 MMOL/L (98-107) H Carbon Dioxide Level 23 MMOL/L (21-32) Anion Gap 10 mmol/L (5-15) Blood Urea Nitrogen 162 mg/dL (7-18) H Creatinine 3.5 MG/DL (0.55-1.30) H Estimat Glomerular Filtration Rate 16.9 mL/min (>60) Glucose Level 70 MG/DL (74-106) L Lactic Acid Level 1.90 mmol/L (0.4-2.0) Uric Acid 7.0 MG/DL (2.6-7.2) Calcium Level 9.1 MG/DL (8.5-10.1) Phosphorus Level 2.8 MG/DL (2.5-4.9) Magnesium Level 2.4 MG/DL (1.8-2.4) Iron Level 16 ug/dL (50-175) L Total Iron Binding Capacity 97 ug/dL (250-450) L Percent Iron Saturation 16 % (15-50) Unsaturated Iron Binding 81 ug/dL (112-346) L Ferritin > 2000 NG/ML (8-388) H Total Bilirubin 0.4 MG/DL (0.2-1.0) Aspartate Amino Transf (AST/SGOT) 36 U/L (15-37) Alanine Aminotransferase (ALT/SGPT) 38 U/L (12-78) Alkaline Phosphatase 91 U/L (46-116) Total Protein 7.7 G/DL (6.4-8.2) Albumin 1.2 G/DL (3.4-5.0) L Globulin 6.5 g/dL Albumin/Globulin Ratio 0.2 (1.0-2.7) L Amylase Level 95 U/L (25-115) Vitamin B12 Level 1659 PG/ML (193-986) H Folate 37.2 NG/ML (8.6-58.9) Random Vancomycin Level 18.5 ug/mL Arterial Blood pH 7.308 (7.350-7.450) Arterial Blood Partial Pressure CO2 39.3 mmHg (35.0-45.0) Arterial Blood Partial Pressure O2 76.9 mmHg (75.0-100.0) Arterial Blood HCO3 19.3 mmol/L (22.0-26.0) L Arterial Blood Oxygen Saturation 95.6 % (95-100) Arterial Blood Base Excess -6.5 (-2-2) L Behzad Test Positive Dennis Woodall MD Jan 23, 2020 11:59
--- NOTE | 2020-01-23 13:30 | Internal Med Progress Note ---
Subjective Date of Service: Jan 23, 2020 Physician Name Morocho,Bunny Attending Physician Danis Wolfe MD Current Medications Medications (Trade) Dose Ordered Sig/Margarette Route PRN Reason Start Time Stop Time Status Last Admin Dose Admin Acetaminophen (Tylenol) 650 mg Q4H PRN ORAL fever 01/22/20 08:15 02/21/20 08:14 Albuterol/ Ipratropium (Albuterol/ Ipratropium) 3 ml Q4H PRN HHN Shortness of Breath 01/22/20 08:15 01/27/20 08:14 Amikacin Protocol (Amikacin pharmacy to dose) 1 ea DAILY PRN MISC . 01/22/20 13:45 02/21/20 13:44 Dextrose/Sodium Chloride 1,000 ml @ 125 mls/hr Q8H IV 01/22/20 11:30 02/21/20 11:29 01/23/20 11:58 Heparin Sodium (Porcine) (Heparin 5000 units/ml) 5,000 units EVERY 12 HOURS SUBQ 01/22/20 21:00 03/07/20 20:59 01/22/20 21:06 Lorazepam (Ativan 2mg/ml 1ml) 2 mg Q2H PRN IV For Anxiety 01/22/20 08:15 01/29/20 08:14 Meropenem 500 mg/ Sodium Chloride 55 ml @ 110 mls/hr Q12H IVPB 01/22/20 14:00 01/27/20 13:59 01/23/20 01:56 Morphine Sulfate (Morphine Sulfate) 4 mg Q4H PRN IVP Severe Pain (Pain Scale 7-10) 01/22/20 08:15 01/29/20 08:14 Norepinephrine Bitartrate 250 ml @ 0 mls/hr Q24H IV 01/22/20 15:00 04/21/20 14:59 01/23/20 05:35 Ondansetron HCl (Zofran) 4 mg Q6H PRN IVP Nausea & Vomiting 01/22/20 08:15 02/21/20 08:14 Pantoprazole (Protonix) 40 mg Q12HR IV 01/22/20 09:30 02/21/20 09:29 01/23/20 08:35 Polyethylene Glycol (Miralax) 17 gm DAILYPRN PRN ORAL Constipation 01/22/20 08:15 8/18/20 08:14 Vancomycin HCl (Vanco pharmacy to dose) 1 ea DAILY [facility]N [facility] 01/22/20 08:45 02/21/20 08:44 Allergies: Coded Allergies: NSAIDS (NON-STEROIDAL ANTI-INFLAMMA (Unverified Allergy, Unknown, 11/27/18) PIPERACILLIN (Unverified Allergy, Unknown, 01/25/19) tolerates carbapenem TAZOBACTAM (Unverified Allergy, Unknown, 11/27/18) Uncoded Allergies: NSAID (Allergy, Unknown, 09/14/18) ROS Limited/Unobtainable: Yes Subjective 84 YO M admitted with respiratory failure. Now pneumonia and hypotension. Cover for Int Med-DR Wolfe. ICU Objective Last Vital Signs Date Time Temp Pulse Resp B/P (MAP) Pulse Ox O2 Delivery O2 Flow Rate FiO2 01/23/20 12:00 102 25 112/68 (83) 99 01/23/20 12:00 Mechanical Ventilator 01/23/20 11:32 40 01/23/20 08:55 55.0 01/23/20 08:15 98.5 Laboratory Tests Test 01/22/20 14:40 01/23/20 04:10 01/23/20 07:35 Urine Color Pale yellow Urine Appearance Turbid Urine pH 8 (4.5-8.0) Urine Specific [place] 1.010 (1.005-1.035) Urine Protein 3+ (NEGATIVE) H Urine Glucose (UA) Negative (NEGATIVE) Urine Ketones Negative (NEGATIVE) Urine Blood 5+ (NEGATIVE) H Urine Nitrite Negative (NEGATIVE) Urine Bilirubin Negative (NEGATIVE) Urine Urobilinogen Normal MG/DL (0.0-1.0) Urine Leukocyte Esterase 3+ (NEGATIVE) H Urine RBC 10-15 /HPF (0 - 0) H Urine WBC 30-40 /HPF (0 - 0) H Urine Squamous Epithelial Cells Occasional /LPF Urine Amorphous Sediment Many /LPF (NONE) H Urine Bacteria Many /HPF (NONE) H Urine Eosinophils None seen (NONE SEEN) Urine Osmolality 461 mOsm/kg (429-449) H Urine Random Creatinine Pending Urine Random Microalbumin Pending Urine Random Sodium 75 mmol/L (20-110) Urine Microalbumin/Creatinine Ratio Pending White Blood Count 31.3 K/UL (4.8-10.8) *H Red Blood Count 2.57 M/UL (4.70-6.10) L Hemoglobin 7.6 G/DL (14.2-18.0) L Hematocrit 25.6 % (42.0-52.0) L Mean Corpuscular Volume 100 FL (80-99) H Mean Corpuscular Hemoglobin 29.6 PG (27.0-31.0) Mean Corpuscular Hemoglobin Concent 29.7 G/DL (32.0-36.0) L Red Cell Distribution Width 16.2 % (11.6-14.8) H Platelet Count 112 K/UL (150-450) L Mean Platelet Volume 8.8 FL (6.5-10.1) Neutrophils (%) (Auto) % (45.0-75.0) Lymphocytes (%) (Auto) % (20.0-45.0) Monocytes (%) (Auto) % (1.0-10.0) Eosinophils (%) (Auto) % (0.0-3.0) Basophils (%) (Auto) % (0.0-2.0) Differential Total Cells Counted 100 Neutrophils % (Manual) 95 % (45-75) H Lymphocytes % (Manual) 2 % (20-45) L Monocytes % (Manual) 3 % (1-10) Eosinophils % (Manual) 0 % (0-3) Basophils % (Manual) 0 % (0-2) Band Neutrophils 0 % (0-8) Platelet Estimate Decreased L Platelet Morphology Clumped Platelets 1+ Hypochromasia 1+ Anisocytosis 1+ Macrocytosis 1+ Erythrocyte Sedimentation Rate 135 MM/HR (0-20) H Prothrombin Time 12.9 SEC (9.30-11.50) H Prothromb Time International Ratio 1.2 (0.9-1.1) H Activated Partial Thromboplast Time 34 SEC (23-33) H Sodium Level 150 MMOL/L (136-145) H Potassium Level 6.2 MMOL/L (3.5-5.1) *H Chloride Level 118 MMOL/L (98-107) H Carbon Dioxide Level 23 MMOL/L (21-32) Anion Gap 10 mmol/L (5-15) Blood Urea Nitrogen 162 mg/dL (7-18) H Creatinine 3.5 MG/DL (0.55-1.30) H Estimat Glomerular Filtration Rate 16.9 mL/min (>60) Glucose Level 70 MG/DL (74-106) L Lactic Acid Level 1.90 mmol/L (0.4-2.0) Uric Acid 7.0 MG/DL (2.6-7.2) Calcium Level 9.1 MG/DL (8.5-10.1) Phosphorus Level 2.8 MG/DL (2.5-4.9) Magnesium Level 2.4 MG/DL (1.8-2.4) Iron Level 16 ug/dL (50-175) L Total Iron Binding Capacity 97 ug/dL (250-450) L Percent Iron Saturation 16 % (15-50) Unsaturated Iron Binding 81 ug/dL (112-346) L Ferritin > 2000 NG/ML (8-388) H Total Bilirubin 0.4 MG/DL (0.2-1.0) Aspartate Amino Transf (AST/SGOT) 36 U/L (15-37) Alanine Aminotransferase (ALT/SGPT) 38 U/L (12-78) Alkaline Phosphatase 91 U/L (46-116) Total Protein 7.7 G/DL (6.4-8.2) Albumin 1.2 G/DL (3.4-5.0) L Globulin 6.5 g/dL Albumin/Globulin Ratio 0.2 (1.0-2.7) L Amylase Level 95 U/L (25-115) Vitamin B12 Level 1659 PG/ML (193-986) H Folate 37.2 NG/ML (8.6-58.9) Random Vancomycin Level 18.5 ug/mL Arterial Blood pH 7.308 (7.350-7.450) Arterial Blood Partial Pressure CO2 39.3 mmHg (35.0-45.0) Arterial Blood Partial Pressure O2 76.9 mmHg (75.0-100.0) Arterial Blood HCO3 19.3 mmol/L (22.0-26.0) L Arterial Blood Oxygen Saturation 95.6 % (95-100) Arterial Blood Base Excess -6.5 (-2-2) L Behzad Test Positive Microbiology Date/Time Source Procedure Growth Status 01/22/20 09:40 Blood Blood Culture - Preliminary Resulted 01/22/20 09:30 Blood Blood Culture - Preliminary Resulted 01/22/20 03:30 Blood Blood Culture - Preliminary Resulted 01/22/20 03:15 Blood Blood Culture - Preliminary Resulted 01/22/20 14:40 Sputum Gram Stain - Final Resulted 01/22/20 14:40 Sputum Sputum Culture Pending Resulted 01/22/20 04:10 Nasopharynx SARS-CoV-2 RdRp Gene Assay - Final Complete 01/22/20 03:30 Urine,Clean Catch Urine Culture - Preliminary Gram Negative Bacillus 1 Resulted 01/22/20 04:00 Rectum Received Intake and Output 01/22/20 01/23/20 19:00 07:00 Intake Total 1139.50 ml 1540.0 ml Output Total 205 ml 0 ml Balance 934.50 ml 1540.0 ml Intake IV Total 1139.50 ml 1540.0 ml Output Urine Total 205 ml 0 ml # Bowel Movements 1 Objective PHYSICAL EXAMINATION: GENERAL: The patient is contracted, thin-appearing male, in no apparent distress. HEENT: Eyes, pupils are equal and responsive to light and accommodation. Extraocular movements are intact. NECK: Supple without lymphadenopathy. There is trachea midline noted. There is no erythema about the trachea. CHEST: Decreased breath sounds at bilateral bases with expiratory wheezes, otherwise without rales. CARDIOVASCULAR EXAM: Tachycardic, regular rate. S1, S2 normal without murmurs, rubs, or gallops. ABDOMEN: Soft, nontender, and nondistended. Positive bowel sounds. No evidence of hepatosplenomegaly. Currently, no rebound or guarding noted. EXTREMITIES: Negative for clubbing, cyanosis, or edema. RECTAL/GENITAL: Not performed. NEUROLOGIC: Unable to assess. Assessment/Plan Assessment/Plan ASSESSMENT: This is an 84-year-old male. 1. Hypoxemic respiratory failure. 2. Pneumonia. 3. Dysphagia. 4. Functional quadriplegia. 5. Alzheimer's dementia. 6. Bdxne-ha-yqwzycz renal failure. TREATMENT: 1. Hypoxemic respiratory failure/pneumonia. A Pulmonary consultation has been obtained with Dr. Dennis Woodall. The patient is currently intubated in the intensive care unit. The patient has been started empirically on amikacin and meropenem. A rapid COVID-19 test was reported as negative. 2. History of dysphagia. The patient is status post PEG placement. 3. Functional quadriplegia. 4. Alzheimer's dementia. 5. Ascli-nx-yvzafsm renal failure. A Nephrology consultation has been obtained with Dr. Ronnie Guevara. Bunny Morocho MD Jan 23, 2020 13:30
--- NOTE | 2020-01-23 14:42 | Surgery Progress Note ---
Surgery Progress Note Subjective Additional Comments leukocytosis anemia coffee ground in g tube ill appearing prognosis guarded Objective Last 24 Hour Vital Signs Date Time Temp Pulse Resp B/P (MAP) Pulse Ox O2 Delivery O2 Flow Rate FiO2 01/23/20 14:15 97/45 01/23/20 14:00 132 30 99/51 (67) 100 01/23/20 13:30 141 32 101/58 (72) 100 01/23/20 13:00 111 27 129/67 (87) 100 01/23/20 12:30 99.8 104 29 111/53 (72) 99 01/23/20 12:00 102 25 112/68 (83) 99 01/23/20 12:00 Mechanical Ventilator 01/23/20 11:53 103 01/23/20 11:32 100 34 40 01/23/20 11:30 102 22 119/69 (86) 98 01/23/20 11:00 100 28 116/50 (72) 98 01/23/20 10:30 99 33 115/61 (79) 99 01/23/20 10:00 98 26 111/52 (71) 99 01/23/20 09:30 99 30 114/62 (79) 100 01/23/20 09:00 98 27 110/57 (74) 100 01/23/20 08:55 55.0 01/23/20 08:45 93 31 72/57 (62) 99 01/23/20 08:30 94 27 102/56 (71) 99 01/23/20 08:16 95 01/23/20 08:15 98.5 97 26 120/56 (77) 99 01/23/20 08:00 97 25 124/54 (77) 97 01/23/20 08:00 Mechanical Ventilator 01/23/20 07:46 86 26 01/23/20 07:01 94 33 40 01/23/20 07:00 92 22 79/62 (68) 98 01/23/20 06:45 93 22 92/45 (61) 98 01/23/20 06:30 94 23 100/50 (67) 98 01/23/20 06:15 93 27 103/51 (68) 98 01/23/20 06:00 95 25 98/49 (65) 99 01/23/20 05:45 94 25 98/50 (66) 98 01/23/20 05:35 96/44 01/23/20 05:30 93 24 96/44 (61) 99 01/23/20 05:15 97 28 82/37 (52) 98 01/23/20 05:00 99 22 121/49 (73) 98 01/23/20 04:45 100 26 114/50 (71) 97 01/23/20 04:30 101 24 120/57 (78) 97 01/23/20 04:15 100 26 143/88 (106) 98 01/23/20 04:00 Mechanical Ventilator 01/23/20 04:00 86 01/23/20 04:00 83 24 75/43 (54) 95 01/23/20 03:45 85 27 72/43 (53) 95 01/23/20 03:30 94 28 110/55 (73) 98 01/23/20 03:20 94 28 40 01/23/20 03:15 94 25 117/53 (74) 98 01/23/20 03:00 94 19 118/52 (74) 98 01/23/20 02:45 93 24 113/54 (73) 98 01/23/20 02:30 94 25 116/49 (71) 98 01/23/20 02:15 94 26 114/49 (70) 97 01/23/20 02:00 94 26 110/53 (72) 97 01/23/20 01:45 93 24 109/54 (72) 97 01/23/20 01:30 93 22 117/52 (73) 97 01/23/20 01:15 93 25 114/56 (75) 98 01/23/20 01:00 92 25 114/52 (72) 97 01/23/20 01:00 85/30 01/23/20 00:45 93 22 113/57 (75) 97 01/23/20 00:30 92 23 109/55 (73) 97 01/23/20 00:15 92 24 110/56 (74) 97 01/23/20 00:00 Mechanical Ventilator 01/23/20 00:00 97.8 92 24 110/59 (76) 97 01/22/20 23:45 91 22 114/53 (73) 99 01/22/20 23:42 87 26 40 01/22/20 23:30 92 25 114/54 (74) 99 7/19/20 23:15 90 19 120/63 (82) 99 719/20 23:00 90 21 104/47 (66) 99 7/20 22:45 89 24 105/71 (82) 99 719/20 22:30 89 22 115/54 (74) 99 7/19/20 22:15 89 25 116/57 (76) 99 719/20 22:00 89 25 123/56 (78) 98 71920 21:45 87 20 99/65 (76) 98 719/20 21:30 87 24 107/58 (74) 98 719/20 21:15 86 23 88/44 (59) 98 01/21/20 21:00 84 21 97/47 (64) 99 01/21/20 20:45 83 26 96/47 (63) 99 7/20 20:30 82 26 105/56 (72) 99 19/20 20:15 82 25 103/50 (67) 99 20 20:00 97.8 82 21 101/52 (68) 99 20 20:00 Mechanical Ventilator 01/22/20 20:00 80 20 19:45 81 17 99/52 (68) 99 20 19:30 81 13 96/54 (68) 99 20 19:15 82 22 104/70 (81) 99 20 19:02 84 28 40 7/20 19:00 80 23 105/58 (74) 99 01/21/20 18:45 81 21 83/45 (58) 97 01/21/20 18:30 80 21 87/60 (69) 97 719/20 18:15 80 23 83/51 (62) 98 719/20 18:00 80 27 85/48 (60) 98 01/21/20 17:30 79 22 98/58 (71) 99 7/20 17:00 79 24 89/56 (67) 99 719/20 16:30 85 25 103/63 (76) 98 19/20 16:00 Mechanical Ventilator 01/22/20 16:00 97.5 76 15 96/57 (70) 99 20 15:56 76 7/19/20 15:30 75 16 98/56 (70) 99 01/22/20 15:00 76 20 105/54 (71) 99 01/22/20 15:00 76 20 105/54 (71) 99 I&O Intake and Output 01/22/20 01/23/20 19:00 07:00 Intake Total 1139.50 ml 1540.0 ml Output Total 205 ml 0 ml Balance 934.50 ml 1540.0 ml Intake IV Total 1139.50 ml 1540.0 ml Output Urine Total 205 ml 0 ml # Bowel Movements 1 Dressing: other Wound: other Drains: other Cardiovascular: RSR Respiratory: decreased breath sounds Abdomen: soft, present bowel sounds, other Extremities: edema, no cyanosis Laboratory Tests Test 01/23/20 04:10 01/23/20 07:35 White Blood Count 31.3 K/UL (4.8-10.8) *H Red Blood Count 2.57 M/UL (4.70-6.10) L Hemoglobin 7.6 G/DL (14.2-18.0) L Hematocrit 25.6 % (42.0-52.0) L Mean Corpuscular Volume 100 FL (80-99) H Mean Corpuscular Hemoglobin 29.6 PG (27.0-31.0) Mean Corpuscular Hemoglobin Concent 29.7 G/DL (32.0-36.0) L Red Cell Distribution Width 16.2 % (11.6-14.8) H Platelet Count 112 K/UL (150-450) L Mean Platelet Volume 8.8 FL (6.5-10.1) Neutrophils (%) (Auto) % (45.0-75.0) Lymphocytes (%) (Auto) % (20.0-45.0) Monocytes (%) (Auto) % (1.0-10.0) Eosinophils (%) (Auto) % (0.0-3.0) Basophils (%) (Auto) % (0.0-2.0) Differential Total Cells Counted 100 Neutrophils % (Manual) 95 % (45-75) H Lymphocytes % (Manual) 2 % (20-45) L Monocytes % (Manual) 3 % (1-10) Eosinophils % (Manual) 0 % (0-3) Basophils % (Manual) 0 % (0-2) Band Neutrophils 0 % (0-8) Platelet Estimate Decreased L Platelet Morphology Clumped Platelets 1+ Hypochromasia 1+ Anisocytosis 1+ Macrocytosis 1+ Erythrocyte Sedimentation Rate 135 MM/HR (0-20) H Prothrombin Time 12.9 SEC (9.30-11.50) H Prothromb Time International Ratio 1.2 (0.9-1.1) H Activated Partial Thromboplast Time 34 SEC (23-33) H Sodium Level 150 MMOL/L (136-145) H Potassium Level 6.2 MMOL/L (3.5-5.1) *H Chloride Level 118 MMOL/L (98-107) H Carbon Dioxide Level 23 MMOL/L (21-32) Anion Gap 10 mmol/L (5-15) Blood Urea Nitrogen 162 mg/dL (7-18) H Creatinine 3.5 MG/DL (0.55-1.30) H Estimat Glomerular Filtration Rate 16.9 mL/min (>60) Glucose Level 70 MG/DL (74-106) L Lactic Acid Level 1.90 mmol/L (0.4-2.0) Uric Acid 7.0 MG/DL (2.6-7.2) Calcium Level 9.1 MG/DL (8.5-10.1) Phosphorus Level 2.8 MG/DL (2.5-4.9) Magnesium Level 2.4 MG/DL (1.8-2.4) Iron Level 16 ug/dL (50-175) L Total Iron Binding Capacity 97 ug/dL (250-450) L Percent Iron Saturation 16 % (15-50) Unsaturated Iron Binding 81 ug/dL (112-346) L Ferritin > 2000 NG/ML (8-388) H Total Bilirubin 0.4 MG/DL (0.2-1.0) Aspartate Amino Transf (AST/SGOT) 36 U/L (15-37) Alanine Aminotransferase (ALT/SGPT) 38 U/L (12-78) Alkaline Phosphatase 91 U/L (46-116) Total Protein 7.7 G/DL (6.4-8.2) Albumin 1.2 G/DL (3.4-5.0) L Globulin 6.5 g/dL Albumin/Globulin Ratio 0.2 (1.0-2.7) L Amylase Level 95 U/L (25-115) Vitamin B12 Level 1659 PG/ML (193-986) H Folate 37.2 NG/ML (8.6-58.9) Random Vancomycin Level 18.5 ug/mL Arterial Blood pH 7.308 (7.350-7.450) Arterial Blood Partial Pressure CO2 39.3 mmHg (35.0-45.0) Arterial Blood Partial Pressure O2 76.9 mmHg (75.0-100.0) Arterial Blood HCO3 19.3 mmol/L (22.0-26.0) L Arterial Blood Oxygen Saturation 95.6 % (95-100) Arterial Blood Base Excess -6.5 (-2-2) L Behzad Test Positive Plan Problems: (1) Dehydration (2) Urinary tract infection (3) Ventilator dependent (4) Bilateral pleural effusion (5) Decubitus skin ulcer Assessment & Plan: Pt presented on admission with in grossly unkempt state, with Contractures and multiple Pressure injuries.Skin turgor is poor. Color is dusky. Generalized dry,scaly skin. Gastrostomy stoma is eroded and oozing moderate amt malodorous,Black,mud consistency exudate. Clusters of Unstageabloe Pressure injury Thoracic Spine. Base of wound has multiple small islands of slough with soft erythematous bridges giving wound appearance of multiple wounds. Area measuring (L)4cm x (W)3.6cm. In close proximity, to L of thoracic spine is a Partial thickness Pressure injury(L)5cm x (W)3.5cm. Base of wound is cade with macerated borders.Small amt sanguineous exudate noted. Resolving Full thickness 4 Pressure injury R Trochanter(L)0.7cm x (W)1.2cm, slight tunneled area at 11o'clock by 0.3cm. Surrounding pink epithelial bordered by hyperpigmentation. NO odor or exudate noted. Partial thickness shearing noted over Previously compromised skin (L)9cm x (W) 10.5cm. Base of wound is erythematous with multiple Scattered satellite lesions that are oozing sanguineous exudate. Unstageable Pressure injury distally, medial R Tibia(L)1.3cm x (W)1.1 cm . Base of wound is 100% yellow slough with marginal erythematous borders. No odor or exudate noted. Xerosis skin periwound. Pressure injury R Hallux. Base of wound is 40% dry eschar ,60% pink epithelial. No exudate noted. No erythema or fluctuance periwound. R Heel is boggy with non-blanchable erythema. Wound Plantar R foot(L)0.6cm x (W)0.8cm. 100% slough at base of wound . Marginal erythema along edges. Periwound is fluctuant and erythematous. At web space between R 1st and 2nd metatarsals is a Partial Thickness wound that is cade and oozing small amt sanguineous exudate. At Plantar aspect of R 3rd metatarsal noted to be oozing small amt Sanguineous exudate. Assessment of wound is not fully appreciated secondary to clubbing of metatarsals. Swabbed with Betadine and small gauze pressure drsg applied. Resolving Pressure Injury L Heel(L)6.5cm x (W)5cm. Base of wound is 90% pink epithelial, 10% dry eschar. NO odor or exudate noted . Scattered small dry,black scabs noted to R and L dorsal aspects feet ,including dorsal aspects of metatarsals both feet. Cleanse wounds Thoracic Spine with Saline. Apply TheraHoney. Apply Cavilon Skin Barrier Periwound. Cover with Optifoam drsg.Change every 3 days and prn. Apply Moisture Barrier Paste to Buttocks. Cover with Optifoam drsg. Change every 3 days and prn. Apply Betadine to wounds both feet. Cover with Abd pads and wrap each foot with Kerlix drsg. Wash GT site with Soap and Water and apply Loose Gauze drsg Daily and prn. Cleanse wound R trochanter with saline. Apply Therahoney,Apply Cavilon Periwound. Cover with Optifoam drsg. Change every 3 days and prn. Cleanse wounds L hip and L trochanter with Saline. Apply Therahoney. Apply Cavilon periwound .Cover with Optifoam drsg every 3 days and prn. Cleanse wounds L scapula with Saline. Apply TheraHoney. Apply Cavilon periwound.Cover with Optifoam drsg every 3 days and prn. Apply Triad paste to sacrum ,groin and scrotum with each Incontinence care. Cleanse wounds R and L foot with Saline. Apply TheraHoney. Cover wounds with Abd pads and wrap both feet with Kerlix gauze every 3 days and prn. Air Fluidized mattress. Reposition at least every 2hours or as tolerated. Place pillow between knees. Off-load heels with pillow. nutritional; optimization (6) funtional quadriplegia (7) Sepsis Assessment & Plan: labs reviewed on abx cxr noted unchanged wean as tolerated tf chris lira will monitor (8) Chronic respiratory failure (9) Pneumonia (10) Acute on chronic respiratory failure Assessment & Plan: Bilateral interstitial opacities, left basilar pleural fluid and/or consolidation, left lung volume loss appear unchanged. Tracheostomy remains. 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 2) Swallowing difficulty r/t respiratory failure as evidenced by pt is trach/ vent dep and GT dependent. CURRENT TF:NPO ENTERAL NUTRITION RECOMMENDATIONS: Nepro @ 45ml/hr x 24 hrs to provide 1080ml, 1944kcal, 87g prot, 785ml free water FEED W/ HEMODYNAMIC STABILITY -> Rec Nepro at this time due to ARF, K consistently elev, now 6.2* -> Initiate Nepro @ 15ml/hr x 6hrs, advance 10ml q 4-6 hrs as tolerated to goal rate -> HOB over 30 degrees/ water flush per MD Without hemodynamic stability, rec trophic feeding of Nepro @ 5ml/hr x 24hrs ADDITIONAL RECOMMENDATIONS: * PER SNF: HT=72 inches, PM=398mwn (01/08) vs EMR HT= 65" inches and OF=035hjr -> RECALIBRATE BEDSCALE * Monitor renal fxn and lytes, need for continued rec for Nepro * Monitor HD stability: NE @ 6mcg * Wound healing: add vit C 500mg BID, [place] BID w/ TF order * Consider accuchecks for close BG monitoring for hypoglycemia -> cont D5 while pt NPO (13) Protein-calorie malnutrition, severe (14) At high risk for aspiration (15) ATN (acute tubular necrosis) (16) Severe anemia (17) Encephalopathy acute Stanislav Avelar Jan 23, 2020 14:42
[2020-01-23] MEDS ORDERED: Digoxin 0.5mg/2ml Inj IVP SCH (14:45)
--- NOTE | 2020-01-23 18:27 | Diagnostic Imaging Report ---
EXAM: XR Abdomen, 2 Views CLINICAL HISTORY: NGT TECHNIQUE: Frontal view of the abdomen/pelvis with upright view of the abdomen. COMPARISON: Chest radiograph 01/22/2020 FINDINGS: Lower thorax: Large gastroesophageal reflux. Retrocardiac atelectasis without or with consolidation, incompletely evaluated. Contrast accumulates in the stomach and appears to freely pass retrograde into the distal esophagus. Intraperitoneal space: No free air. Gastrointestinal tract: Gas-filled prominent small and large bowel loops, consider ileus or obstruction. Bones/joints: Osteopenia and degenerative spine findings. Tubes, lines and devices: Indication states NG tube, however, NG tube not identified on this study. Percutaneous gastrostomy tube tip appears intraluminal within the stomach. IMPRESSION: 1. Indication states NG tube, however, NG tube not identified on this study. 2. Percutaneous gastrostomy tube tip appears intraluminal within the stomach. 3. Large gastroesophageal reflux. 4. Retrocardiac atelectasis without or with consolidation, incompletely evaluated. 5. Gas-filled prominent small and large bowel loops, consider ileus or obstruction.
--- NOTE | 2020-01-23 19:46 | Infectious Diseases Prog Note ---
Assessment/Plan Assessment: Septic Shock High grade Gram neg bacteremia- from UTI and obstructive uropathy -01/21 BCx GNR x8 Pneumonia- r.o COVID19 Acute on chronic respiratory failure - SP trach/vent dependant -01/21 rapid COVID Low grade fever Severe leukocytosis; worsening UTI -u/a wbc 10-15, nit neg, leuk +3; ucx >100k GNR Hypernatremia Hyperkalemia FRIDA -Renal US: Limited exam, as described, poor visualization of the left kidney. Right and probably left hydronephrosis. Probable bladder mass. 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 UTI and bacteremia 11/2018 COPD Dementia non verbal functional quadriplegia chronic resp failure s/p trach/vent dependent SNF resident ([facility]) Plan: -Continue empiric IV Vancomycin and Amikacin #2 and Meropenem #2 -hx of MDRO -01/21 Flagyl x1, Levaquin x 1 -f/u cx -Monitor CBC/CMP, temperatures -COVID19 isolation and testing; send COVID PCR -ICU/trach/PEG care -aspiration precautions -Bcx x2 -Uro eval Thank you for consulting [facility]. Will continue to follow along with you. Katie jain RN. Subjective Allergies: Coded Allergies: NSAIDS (NON-STEROIDAL ANTI-INFLAMMA (Unverified Allergy, Unknown, 11/27/18) PIPERACILLIN (Unverified Allergy, Unknown, 01/25/19) tolerates carbapenem TAZOBACTAM (Unverified Allergy, Unknown, 11/27/18) Uncoded Allergies: NSAID (Allergy, Unknown, 09/14/18) Tm 100.8 high grade GNR bactermia on levophed at 8 wbc in the 30s Objective Last 24 Hour Vital Signs Date Time Temp Pulse Resp B/P (MAP) Pulse Ox O2 Delivery O2 Flow Rate FiO2 01/23/20 19:00 98 35 105/46 (65) 97 01/23/20 18:35 96 32 114/51 (72) 97 01/23/20 18:16 99.9 01/23/20 18:00 99.9 100 32 121/50 (73) 99 01/23/20 17:30 100.8 126 35 120/61 (80) 100 7/20/20 17:00 126 35 90/55 (67) 98 7/20/20 16:30 132 33 107/62 (77) 98 7/20/20 16:00 Mechanical Ventilator 72020 16:00 127 33 114/60 (78) 98 7/20/20 15:30 135 32 96/50 (65) 100 7/20/20 15:16 129 7/20/20 15:05 138 7/20/20 15:00 139 32 100/61 (74) 100 7/20/20 14:50 147 29 40 7/20/20 14:15 97/45 7/20/20 14:00 132 30 99/51 (67) 100 7/20/20 13:30 141 32 101/58 (72) 100 7/20/20 13:00 111 27 129/67 (87) 100 7/20/20 12:30 99.8 104 29 111/53 (72) 99 7/20/20 12:00 102 25 112/68 (83) 99 7/20/20 12:00 Mechanical Ventilator 20 11:53 103 7/20/20 11:32 100 34 40 7/20/20 11:30 102 22 119/69 (86) 98 7/20/20 11:00 100 28 116/50 (72) 98 7/20/20 10:30 99 33 115/61 (79) 99 7/20/20 10:00 98 26 111/52 (71) 99 7/20/20 09:30 99 30 114/62 (79) 100 7/20/20 09:00 98 27 110/57 (74) 100 7/20/20 08:55 55.0 720/20 08:45 93 31 72/57 (62) 99 7/20/20 08:30 94 27 102/56 (71) 99 7/20/20 08:16 95 7/20/20 08:15 98.5 97 26 120/56 (77) 99 7/20/20 08:00 97 25 124/54 (77) 97 7/20/20 08:00 Mechanical Ventilator 01/23/20 07:46 86 26 720/20 07:01 94 33 40 720/20 07:00 92 22 79/62 (68) 98 720/20 06:45 93 22 92/45 (61) 98 7/20/20 06:30 94 23 100/50 (67) 98 72020 06:15 93 27 103/51 (68) 98 72020 06:00 95 25 98/49 (65) 99 7/20/20 05:45 94 25 98/50 (66) 98 7/20/20 05:35 96/44 72020 05:30 93 24 96/44 (61) 99 72020 05:15 97 28 82/37 (52) 98 72020 05:00 99 22 121/49 (73) 98 72020 04:45 100 26 114/50 (71) 97 01/23/20 04:30 101 24 120/57 (78) 97 01/23/20 04:15 100 26 143/88 (106) 98 01/23/20 04:00 Mechanical Ventilator 01/23/20 04:00 86 01/23/20 04:00 83 24 75/43 (54) 95 01/23/20 03:45 85 27 72/43 (53) 95 01/23/20 03:30 94 28 110/55 (73) 98 01/23/20 03:20 94 28 40 7 03:15 94 25 117/53 (74) 98 20 03:00 94 19 118/52 (74) 98 20 02:45 93 24 113/54 (73) 98 72020 02:30 94 25 116/49 (71) 98 20 02:15 94 26 114/49 (70) 97 20 02:00 94 26 110/53 (72) 97 2020 01:45 93 24 109/54 (72) 97 72020 01:30 93 22 117/52 (73) 97 20 01:15 93 25 114/56 (75) 98 20 01:00 92 25 114/52 (72) 97 72020 01:00 85/30 72020 00:45 93 22 113/57 (75) 97 2020 00:30 92 23 109/55 (73) 97 2020 00:15 92 24 110/56 (74) 97 7/20/20 00:00 Mechanical Ventilator 01/23/20 00:00 97.8 92 24 110/59 (76) 97 01/22/20 23:45 91 22 114/53 (73) 99 01/22/20 23:42 87 26 40 01/22/20 23:30 92 25 114/54 (74) 99 01/22/20 23:15 90 19 120/63 (82) 99 01/22/20 23:00 90 21 104/47 (66) 99 01/22/20 22:45 89 24 105/71 (82) 99 01/22/20 22:30 89 22 115/54 (74) 99 01/22/20 22:15 89 25 116/57 (76) 99 01/22/20 22:00 89 25 123/56 (78) 98 01/22/20 21:45 87 20 99/65 (76) 98 01/22/20 21:30 87 24 107/58 (74) 98 01/22/20 21:15 86 23 88/44 (59) 98 01/22/20 21:00 84 21 97/47 (64) 99 01/22/20 20:45 83 26 96/47 (63) 99 01/22/20 20:30 82 26 105/56 (72) 99 01/22/20 20:15 82 25 103/50 (67) 99 01/22/20 20:00 97.8 82 21 101/52 (68) 99 01/22/20 20:00 Mechanical Ventilator 01/22/20 20:00 80 01/22/20 19:45 81 17 99/52 (68) 99 Height (Feet): 5 Height (Inches): 5.00 Weight (Pounds): 138 General Appearance: lethargic, Chronically Ill Head: normocephalic ENT: dry mucus membranes, trach to vent Neck: limited range of motion, tracheotomy Respiratory: decreased breath sounds Cardiovascular #1: Tachycardic Gastrointestinal: non tender, soft, GT tube in place Microbiology Date/Time Source Procedure Growth Status 01/22/20 09:40 Blood Blood Culture - Preliminary Resulted 01/22/20 09:30 Blood Blood Culture - Preliminary Resulted 01/22/20 03:30 Blood Blood Culture - Preliminary Resulted 01/22/20 03:15 Blood Blood Culture - Preliminary Resulted 01/22/20 14:40 Sputum Gram Stain - Final Resulted 01/22/20 14:40 Sputum Sputum Culture Pending Resulted 01/22/20 04:10 Nasopharynx SARS-CoV-2 RdRp Gene Assay - Final Complete 01/22/20 03:30 Urine,Clean Catch Urine Culture - Preliminary Gram Negative Bacillus 1 Resulted 01/22/20 04:00 Rectum Received Laboratory Tests Test 01/23/20 04:10 01/23/20 07:35 01/23/20 18:28 White Blood Count 31.3 K/UL (4.8-10.8) *H Red Blood Count 2.57 M/UL (4.70-6.10) L Hemoglobin 7.6 G/DL (14.2-18.0) L Hematocrit 25.6 % (42.0-52.0) L Mean Corpuscular Volume 100 FL (80-99) H Mean Corpuscular Hemoglobin 29.6 PG (27.0-31.0) Mean Corpuscular Hemoglobin Concent 29.7 G/DL (32.0-36.0) L Red Cell Distribution Width 16.2 % (11.6-14.8) H Platelet Count 112 K/UL (150-450) L Mean Platelet Volume 8.8 FL (6.5-10.1) Neutrophils (%) (Auto) % (45.0-75.0) Lymphocytes (%) (Auto) % (20.0-45.0) Monocytes (%) (Auto) % (1.0-10.0) Eosinophils (%) (Auto) % (0.0-3.0) Basophils (%) (Auto) % (0.0-2.0) Differential Total Cells Counted 100 Neutrophils % (Manual) 95 % (45-75) H Lymphocytes % (Manual) 2 % (20-45) L Monocytes % (Manual) 3 % (1-10) Eosinophils % (Manual) 0 % (0-3) Basophils % (Manual) 0 % (0-2) Band Neutrophils 0 % (0-8) Platelet Estimate Decreased L Platelet Morphology Clumped Platelets 1+ Hypochromasia 1+ Anisocytosis 1+ Macrocytosis 1+ Erythrocyte Sedimentation Rate 135 MM/HR (0-20) H Prothrombin Time 12.9 SEC (9.30-11.50) H Prothromb Time International Ratio 1.2 (0.9-1.1) H Activated Partial Thromboplast Time 34 SEC (23-33) H Sodium Level 150 MMOL/L (136-145) H Potassium Level 6.2 MMOL/L (3.5-5.1) *H Chloride Level 118 MMOL/L (98-107) H Carbon Dioxide Level 23 MMOL/L (21-32) Anion Gap 10 mmol/L (5-15) Blood Urea Nitrogen 162 mg/dL (7-18) H Creatinine 3.5 MG/DL (0.55-1.30) H Estimat Glomerular Filtration Rate 16.9 mL/min (>60) Glucose Level 70 MG/DL (74-106) L Lactic Acid Level 1.90 mmol/L (0.4-2.0) Uric Acid 7.0 MG/DL (2.6-7.2) Calcium Level 9.1 MG/DL (8.5-10.1) Phosphorus Level 2.8 MG/DL (2.5-4.9) Magnesium Level 2.4 MG/DL (1.8-2.4) Iron Level 16 ug/dL (50-175) L Total Iron Binding Capacity 97 ug/dL (250-450) L Percent Iron Saturation 16 % (15-50) Unsaturated Iron Binding 81 ug/dL (112-346) L Ferritin > 2000 NG/ML (8-388) H Total Bilirubin 0.4 MG/DL (0.2-1.0) Aspartate Amino Transf (AST/SGOT) 36 U/L (15-37) Alanine Aminotransferase (ALT/SGPT) 38 U/L (12-78) Alkaline Phosphatase 91 U/L (46-116) Total Protein 7.7 G/DL (6.4-8.2) Albumin 1.2 G/DL (3.4-5.0) L Globulin 6.5 g/dL Albumin/Globulin Ratio 0.2 (1.0-2.7) L Amylase Level 95 U/L (25-115) Vitamin B12 Level 1659 PG/ML (193-986) H Folate 37.2 NG/ML (8.6-58.9) Random Vancomycin Level 18.5 ug/mL Arterial Blood pH 7.308 (7.350-7.450) Arterial Blood Partial Pressure CO2 39.3 mmHg (35.0-45.0) Arterial Blood Partial Pressure O2 76.9 mmHg (75.0-100.0) Arterial Blood HCO3 19.3 mmol/L (22.0-26.0) L Arterial Blood Oxygen Saturation 95.6 % (95-100) Arterial Blood Base Excess -6.5 (-2-2) L Behzad Test Positive Random Amikacin Level Pending Current Medications Medications (Trade) Dose Ordered Sig/Margarette Route PRN Reason Start Time Stop Time Status Last Admin Dose Admin Acetaminophen (Tylenol) 650 mg Q4H PRN ORAL fever 01/22/20 08:15 02/21/20 08:14 01/23/20 17:12 Albuterol/ Ipratropium (Albuterol/ Ipratropium) 3 ml Q4H PRN HHN Shortness of Breath 01/22/20 08:15 01/27/20 08:14 Amikacin Protocol (Amikacin pharmacy to dose) 1 ea DAILY PRN MISC . 01/22/20 13:45 02/21/20 13:44 Dextrose/Sodium Chloride 1,000 ml @ 125 mls/hr Q8H IV 01/22/20 11:30 02/21/20 11:29 01/23/20 11:58 Digoxin (Lanoxin) 0.125 mg DAILY IVP 01/24/20 09:00 04/23/20 08:59 Heparin Sodium (Porcine) (Heparin 5000 units/ml) 5,000 units EVERY 12 HOURS SUBQ 01/22/20 21:00 03/07/20 20:59 01/22/20 21:06 Lorazepam (Ativan 2mg/ml 1ml) 2 mg Q2H PRN IV For Anxiety 01/22/20 08:15 01/29/20 08:14 Meropenem 500 mg/ Sodium Chloride 55 ml @ 110 mls/hr Q12H IVPB 01/22/20 14:00 01/27/20 13:59 01/23/20 14:14 Morphine Sulfate (Morphine Sulfate) 4 mg Q4H PRN IVP Severe Pain (Pain Scale 7-10) 01/22/20 08:15 01/29/20 08:14 Norepinephrine Bitartrate 250 ml @ 0 mls/hr Q24H IV 01/22/20 15:00 04/21/20 14:59 01/23/20 14:15 Ondansetron HCl (Zofran) 4 mg Q6H PRN IVP Nausea & Vomiting 01/22/20 08:15 02/21/20 08:14 Pantoprazole (Protonix) 40 mg Q12HR IV 01/22/20 09:30 02/21/20 09:29 01/23/20 08:35 Polyethylene Glycol (Miralax) 17 gm DAILYPRN PRN ORAL Constipation 01/22/20 08:15 02/21/20 08:14 Vancomycin HCl ([facility] pharmacy to dose) 1 ea DAILY PRN [facility] [place] [facility]SE 01/22/20 08:45 02/21/20 08:44 Lilly Dorantes M.D. Jan 23, 2020 19:46
[2020-01-23] MEDS ORDERED: FERROUS SU325 MG/5 M GT (20:02)
[2020-01-23] MEDS ORDERED: [UNRECOGNIZED DRUG - OTHER] TP (20:02)
[2020-01-23] MEDS ORDERED: HYDROMORPHONE HC2 M1 GT ×2 (20:02)
[2020-01-23] MEDS ORDERED: DIPROLENE OI1 APPLIC TOPIC (20:02)
[2020-01-23] MEDS ORDERED: PERIDEX15 ML MM (20:02)
[2020-01-23] MEDS ORDERED: GLYCOPYRROL GT (20:03)
--- NOTE | 2020-01-23 20:36 | Cardiology Progress Note ---
Assessment/Plan Assessment/Plan [id number] now in sinus amiod if had recurrent of afib prgnosis is poor abx vent support avoid covid testing repetition Objective Last 24 Hour Vital Signs Date Time Temp Pulse Resp B/P (MAP) Pulse Ox O2 Delivery O2 Flow Rate FiO2 01/23/20 19:52 103 35 40 01/23/20 19:00 98 35 105/46 (65) 97 01/23/20 18:35 96 32 114/51 (72) 97 01/23/20 18:16 99.9 01/23/20 18:00 99.9 100 32 121/50 (73) 99 01/23/20 17:30 100.8 126 35 120/61 (80) 100 01/23/20 17:00 126 35 90/55 (67) 98 01/23/20 16:30 132 33 107/62 (77) 98 01/23/20 16:00 Mechanical Ventilator 01/23/20 16:00 127 33 114/60 (78) 98 01/23/20 15:30 135 32 96/50 (65) 100 01/23/20 15:16 129 01/23/20 15:05 138 01/23/20 15:00 139 32 100/61 (74) 100 01/23/20 14:50 147 29 40 01/23/20 14:15 97/45 01/23/20 14:00 132 30 99/51 (67) 100 01/23/20 13:30 141 32 101/58 (72) 100 01/23/20 13:00 111 27 129/67 (87) 100 01/23/20 12:30 99.8 104 29 111/53 (72) 99 01/23/20 12:00 102 25 112/68 (83) 99 01/23/20 12:00 Mechanical Ventilator 01/23/20 11:53 103 01/23/20 11:32 100 34 40 01/23/20 11:30 102 22 119/69 (86) 98 01/23/20 11:00 100 28 116/50 (72) 98 20 10:30 99 33 115/61 (79) 99 01/23/20 10:00 98 26 111/52 (71) 99 01/23/20 09:30 99 30 114/62 (79) 100 01/23/20 09:00 98 27 110/57 (74) 100 7/20/20 08:55 55.0 720 08:45 93 31 72/57 (62) 99 7/20/20 08:30 94 27 102/56 (71) 99 7/20/20 08:16 95 7/20/20 08:15 98.5 97 26 120/56 (77) 99 7/20/20 08:00 97 25 124/54 (77) 97 72020 08:00 Mechanical Ventilator 01/23/20 07:46 86 26 720 07:01 94 33 40 720/20 07:00 92 22 79/62 (68) 98 720/20 06:45 93 22 92/45 (61) 98 720/20 06:30 94 23 100/50 (67) 98 720/20 06:15 93 27 103/51 (68) 98 720/20 06:00 95 25 98/49 (65) 99 72020 05:45 94 25 98/50 (66) 98 72020 05:35 96/44 720/20 05:30 93 24 96/44 (61) 99 7/20/20 05:15 97 28 82/37 (52) 98 720/20 05:00 99 22 121/49 (73) 98 720/20 04:45 100 26 114/50 (71) 97 720/20 04:30 101 24 120/57 (78) 97 720/20 04:15 100 26 143/88 (106) 98 72020 04:00 Mechanical Ventilator 01/23/20 04:00 86 7/2020 04:00 83 24 75/43 (54) 95 720/20 03:45 85 27 72/43 (53) 95 720/20 03:30 94 28 110/55 (73) 98 720/20 03:20 94 28 40 7/20/20 03:15 94 25 117/53 (74) 98 7/20/20 03:00 94 19 118/52 (74) 98 7/20/20 02:45 93 24 113/54 (73) 98 720/20 02:30 94 25 116/49 (71) 98 720/20 02:15 94 26 114/49 (70) 97 01/23/20 02:00 94 26 110/53 (72) 97 01/23/20 01:45 93 24 109/54 (72) 97 01/23/20 01:30 93 22 117/52 (73) 97 01/23/20 01:15 93 25 114/56 (75) 98 01/23/20 01:00 92 25 114/52 (72) 97 01/23/20 01:00 85/30 01/23/20 00:45 93 22 113/57 (75) 97 01/23/20 00:30 92 23 109/55 (73) 97 01/23/20 00:15 92 24 110/56 (74) 97 01/23/20 00:00 Mechanical Ventilator 01/23/20 00:00 97.8 92 24 110/59 (76) 97 01/22/20 23:45 91 22 114/53 (73) 99 01/22/20 23:42 87 26 40 01/22/20 23:30 92 25 114/54 (74) 99 01/22/20 23:15 90 19 120/63 (82) 99 01/22/20 23:00 90 21 104/47 (66) 99 01/22/20 22:45 89 24 105/71 (82) 99 01/22/20 22:30 89 22 115/54 (74) 99 01/22/20 22:15 89 25 116/57 (76) 99 01/22/20 22:00 89 25 123/56 (78) 98 01/22/20 21:45 87 20 99/65 (76) 98 01/22/20 21:30 87 24 107/58 (74) 98 01/22/20 21:15 86 23 88/44 (59) 98 01/22/20 21:00 84 21 97/47 (64) 99 01/22/20 20:45 83 26 96/47 (63) 99 Intake and Output 01/22/20 01/23/20 19:00 07:00 Intake Total 1139.50 ml 1540.0 ml Output Total 205 ml 0 ml Balance 934.50 ml 1540.0 ml Intake IV Total 1139.50 ml 1540.0 ml Output Urine Total 205 ml 0 ml # Bowel Movements 1 Laboratory Tests Test 01/23/20 04:10 01/23/20 07:35 01/23/20 18:28 White Blood Count 31.3 K/UL (4.8-10.8) *H Red Blood Count 2.57 M/UL (4.70-6.10) L Hemoglobin 7.6 G/DL (14.2-18.0) L Hematocrit 25.6 % (42.0-52.0) L Mean Corpuscular Volume 100 FL (80-99) H Mean Corpuscular Hemoglobin 29.6 PG (27.0-31.0) Mean Corpuscular Hemoglobin Concent 29.7 G/DL (32.0-36.0) L Red Cell Distribution Width 16.2 % (11.6-14.8) H Platelet Count 112 K/UL (150-450) L Mean Platelet Volume 8.8 FL (6.5-10.1) Neutrophils (%) (Auto) % (45.0-75.0) Lymphocytes (%) (Auto) % (20.0-45.0) Monocytes (%) (Auto) % (1.0-10.0) Eosinophils (%) (Auto) % (0.0-3.0) Basophils (%) (Auto) % (0.0-2.0) Differential Total Cells Counted 100 Neutrophils % (Manual) 95 % (45-75) H Lymphocytes % (Manual) 2 % (20-45) L Monocytes % (Manual) 3 % (1-10) Eosinophils % (Manual) 0 % (0-3) Basophils % (Manual) 0 % (0-2) Band Neutrophils 0 % (0-8) Platelet Estimate Decreased L Platelet Morphology Clumped Platelets 1+ Hypochromasia 1+ Anisocytosis 1+ Macrocytosis 1+ Erythrocyte Sedimentation Rate 135 MM/HR (0-20) H Prothrombin Time 12.9 SEC (9.30-11.50) H Prothromb Time International Ratio 1.2 (0.9-1.1) H Activated Partial Thromboplast Time 34 SEC (23-33) H Sodium Level 150 MMOL/L (136-145) H Potassium Level 6.2 MMOL/L (3.5-5.1) *H Chloride Level 118 MMOL/L (98-107) H Carbon Dioxide Level 23 MMOL/L (21-32) Anion Gap 10 mmol/L (5-15) Blood Urea Nitrogen 162 mg/dL (7-18) H Creatinine 3.5 MG/DL (0.55-1.30) H Estimat Glomerular Filtration Rate 16.9 mL/min (>60) Glucose Level 70 MG/DL (74-106) L Lactic Acid Level 1.90 mmol/L (0.4-2.0) Uric Acid 7.0 MG/DL (2.6-7.2) Calcium Level 9.1 MG/DL (8.5-10.1) Phosphorus Level 2.8 MG/DL (2.5-4.9) Magnesium Level 2.4 MG/DL (1.8-2.4) Iron Level 16 ug/dL (50-175) L Total Iron Binding Capacity 97 ug/dL (250-450) L Percent Iron Saturation 16 % (15-50) Unsaturated Iron Binding 81 ug/dL (112-346) L Ferritin > 2000 NG/ML (8-388) H Total Bilirubin 0.4 MG/DL (0.2-1.0) Aspartate Amino Transf (AST/SGOT) 36 U/L (15-37) Alanine Aminotransferase (ALT/SGPT) 38 U/L (12-78) Alkaline Phosphatase 91 U/L (46-116) Total Protein 7.7 G/DL (6.4-8.2) Albumin 1.2 G/DL (3.4-5.0) L Globulin 6.5 g/dL Albumin/Globulin Ratio 0.2 (1.0-2.7) L Amylase Level 95 U/L (25-115) Vitamin B12 Level 1659 PG/ML (193-986) H Folate 37.2 NG/ML (8.6-58.9) Random Vancomycin Level 18.5 ug/mL Arterial Blood pH 7.308 (7.350-7.450) Arterial Blood Partial Pressure CO2 39.3 mmHg (35.0-45.0) Arterial Blood Partial Pressure O2 76.9 mmHg (75.0-100.0) Arterial Blood HCO3 19.3 mmol/L (22.0-26.0) L Arterial Blood Oxygen Saturation 95.6 % (95-100) Arterial Blood Base Excess -6.5 (-2-2) L Behzad Test Positive Random Amikacin Level Pending Microbiology Date/Time Source Procedure Growth Status 01/22/20 09:40 Blood Blood Culture - Preliminary Resulted 01/22/20 09:30 Blood Blood Culture - Preliminary Resulted 01/22/20 03:30 Blood Blood Culture - Preliminary Resulted 01/22/20 03:15 Blood Blood Culture - Preliminary Resulted 01/22/20 14:40 Sputum Gram Stain - Final Resulted 01/22/20 14:40 Sputum Sputum Culture Pending Resulted 01/22/20 04:10 Nasopharynx SARS-CoV-2 RdRp Gene Assay - Final Complete 01/22/20 03:30 Urine,Clean Catch Urine Culture - Preliminary Gram Negative Bacillus 1 Resulted 01/22/20 04:00 Rectum Received Kenji Shane MD Jan 23, 2020 20:36
[2020-01-23] MEDS ORDERED: fentaNYL 2500mcg/NS 250ml 250 ML IV SCH (22:00)
--- NOTE | 2020-01-23 22:30 | Consultation ---
DATE OF CONSULTATION: 01/23/2020 CARDIOLOGY CONSULTATION REFERRING PHYSICIAN: Dennis Woodall M.D. REASON FOR REFERRAL: Atrial fibrillation. HISTORY OF PRESENT ILLNESS: This is a very unfortunate elderly gentleman who is a resident of a convalescent facility. The patient has been admitted to the hospital yesterday because of decreased oxygen saturation and trach dependent. The patient was noted to have increased respiratory rate and decreased saturation. The patient was transferred to the emergency room at [facility] and has been diagnosed with bilateral pleural effusions and acute on chronic respiratory failure, ventilator dependence, and has been admitted today to the ICU and noted to have some atrial fibrillation, rapid ventricular response. This consultation is subsequently requested. The patient is on a ventilator, not able to provide any meaningful history. Information is obtained clearly from review of the chart and the patient's convalescent facility. PAST MEDICAL HISTORY: Positive for functional quadriplegia, hyperlipidemia, chronic respiratory failure, chronic hypoxemia, gastrostomy, tracheostomy tube, dementia, chronic pain syndrome according to the convalescent facility, history of decubitus ulcers in multiple places, major depression, dysphagia, anemia. MEDICATIONS: At the facility include methadone, baclofen, vitamin C, multivitamins, albuterol nebulizer, and Dilaudid. ALLERGIES: Zosyn and nonsteroidal anti-inflammatory medications. SOCIAL HISTORY: Lives in a convalescent facility. REVIEW OF SYSTEMS: Unable to obtain. PHYSICAL EXAMINATION: for possible COVID. Therefore, I did not examine the patient directly in person, but from the window in the intensive care unit, appears to be on a mechanical ventilator with minimal movement of his head. Vital signs reviewed. His vital signs are most recently with a blood pressure of 105/46 with a heart rate of 98, temperature axillary of 100.8 today and at the present time 99.9. His oxygen saturation is 97-100% and he is on 40% FiO2. His evaluations by other physicians have been reviewed. Lungs, decreased breath sounds at bilateral bases with expiratory wheezes noted. Cardiac examination, tachycardic but regular at the time evaluated by physician. Abdomen was soft. Extremities, there is severe contracture of the lower extremities. LABORATORY AND DIAGNOSTIC DATA: White count is 31.3, down from 35, with hemoglobin of 7.6, and platelet count of 112, up from 34,000 minimally. The patient has lymphopenia of approximately 2%. Sed rate of 135. Blood gases, pH of 7.3, pCO2 of 39, pO2 of 76, and bicarb of 19. His sodium was 150, potassium 6.2, chloride 116, bicarb 23, BUN of 162, and creatinine of 3.5, glucose of 70. His bilirubin is 0.4, albumin is 1.2. Vitamin B12 of 1600, amylase of 95, folic acid of 37, and magnesium of 2.4. Iron is 16 with 16% saturation, and his coags, INR 1.2 and PTT of 34. His urine shows 30-40 wbc's and 10-15 RBCs, and so urine sodium is 37. His blood cultures preliminary show gram-negative rods seen in both sets. SARS COVID test was negative in the emergency room, and his sputum Gram stain was reading wbc's, a few gram-negative rods. His chest x-ray today shows bilateral interstitial opacities with left basilar pleural effusion and consolidation with left lung volume loss, unchanged. EKG shows normal sinus rhythm, nonspecific T-wave abnormalities. Telemetry data shows sinus rhythm at the present time, although the patient did have a bout of atrial fibrillation with rapid ventricular response with heart rate of 120 earlier today. The patient has been administered some digoxin. Medications at the time of this dictation include albuterol inhaler, heparin subcutaneously, Tylenol, morphine, MiraLAX, Zofran, lorazepam 2 mg, vancomycin, norepinephrine, Protonix, meropenem, amikacin, and as mentioned digoxin, at least 1 dose has been administered. The patient's TSH was not performed yet during this hospitalization. ASSESSMENT AND PLAN: 1. Septic shock. 2. Gram-negative shante bacteremia. 3. Respiratory failure, acute on chronic. 4. Pneumonia. 5. Chronic respiratory failure. 6. Atrial fibrillation, paroxysmal in nature. 7. Contracted extremities. 8. Decubitus ulcers. 9. Hypernatremia. 10. Renal failure. Dr. Woodall, this patient was seen in cardiac consultation. The patient has converted to sinus spontaneously, at risk of developing recurrent bouts of atrial fibrillation with the use of albuterol and pulmonary infectious process in the lungs. SARS COVID-19 test repetition is pending at this time. The patient remains in isolation on ventilator. We will have a set of cardiac enzymes repeated. Echocardiogram will be performed only if COVID-19 is excluded, and the patient will be continued on intravenous antibiotics. Vasopressor support with a dose of norepinephrine is appropriate as needed. We will try to limit and avoid the use of dopamine and/or dobutamine at the present time. The patient's prognosis is poor as advance directive is not to be resuscitated, but family does want to have continued treatment. The POLST form was reviewed. DNR has indicated selective treatment. I will follow the patient along with you. Should the patient require further medications for treatment of atrial fibrillation and prevention, amiodarone can certainly be used to prevent further deterioration of cardiac rhythm. Kenji Shane M.D. DR: LOUIE JOB#: [id number] CC:
[2020-01-24] VITALS (43 sets, daily range): BP systolic 67–116; BP diastolic 5–80
[2020-01-24] MEDS: Meropenem 500 MG in NS 55 ML IVPB SCH ×2 (02:15→14:28)
[2020-01-24] MEDS: D5 1/2NS 1,000 ML IV SCH ×3 (05:00→19:30)
[2020-01-24 05:32] LABS: HEMATOCRIT 26.4 % (42.0-52.0); HEMOGLOBIN 8.2 G/DL (14.2-18.0); MEAN CORPUSCULAR VOLUME 98 FL (80-99); RED CELL DISTRIBUTION WIDTH 15.8 % (11.6-14.8)
[2020-01-24 06:02] LABS: WHITE BLOOD COUNT 25.2 K/UL (4.8-10.8)
[2020-01-24 06:03] LABS: ALANINE AMINOTRANSFERASE 30 U/L (12-78); ALBUMIN/GLOBULIN RATIO 0.2 (1.0-2.7); ALKALINE PHOSPHATASE 103 U/L (46-116); ANION GAP 10 mmol/L (5-15); ASPARTATE AMINO TRANSFERASE 39 U/L (15-37); BILIRUBIN,TOTAL 0.4 MG/DL (0.2-1.0); BLOOD UREA NITROGEN 165 mg/dL (7-18); CALCIUM 8.4 MG/DL (8.5-10.1); CARBON DIOXIDE 19 MMOL/L (21-32); CHLORIDE 118 MMOL/L (98-107); CREATININE 3.7 MG/DL (0.55-1.30); SODIUM 147 MMOL/L (136-145)
[2020-01-24 06:07] LABS: POTASSIUM 6.1 MMOL/L (3.5-5.1)
[2020-01-24] MEDS: Norepinephrine 4mg/NS Premix 250 ML IV SCH ×3 (06:24→22:37)
[2020-01-24] MEDS ORDERED: Sodium Polystyrene Sulfonate 15gm Powder GT SCH (06:45)
[2020-01-24] MEDS: Pantoprazole Inj IV SCH ×2 (08:55→20:55)
[2020-01-24] MEDS: Digoxin 0.5mg/2ml Inj IVP SCH (08:56)
[2020-01-24] MEDS: Heparin 5000 units/ml inj SUBQ SCH ×2 (08:57→20:56)
[2020-01-24 09:10] LABS: PLATELET COUNT 106 K/UL (150-450)
[2020-01-24] MEDS ORDERED: D5W IV SCH ×2 (10:00)
[2020-01-24] MEDS ORDERED: AMIKACIN IV SCH ×2 (10:00)
--- NOTE | 2020-01-24 10:51 | Pulmonolgy Critical Care Note ---
Critical Care - Asmt/Plan Problems: (1) Acute on chronic respiratory failure (2) Sepsis (3) FRIDA (acute kidney injury) (4) Dehydration (5) Encephalopathy acute (6) Ventilator dependent (7) funtional quadriplegia (8) Chronic respiratory failure (9) Protein-calorie malnutrition, severe (10) Feeding by G-tube Respiratory: monitor respiratory rate, adjust FIO2, CXR Cardiac: continue to monitor HR/BP Renal: F/U I&O, keep IV fluid, check electrolytes Infectious Disease: check cultures, continue antibiotics Gastrointestinal: continue feedings/current rate Endocrine: monitor blood sugar Hematologic: monitor H/H, transfuse if hgb<8.5 Neurologic: PRN Ativan, keep patient comfortable Affect: PRN ativan Prophylaxis: Protonix Notes Reviewed: aircraft sheet metal mechanic, cardio Discussed with: nurses, consultants, case brieferoffice manager executive assistant - Objective Last 24 Hour Vital Signs Date Time Temp Pulse Resp B/P (MAP) Pulse Ox O2 Delivery O2 Flow Rate FiO2 01/24/20 10:00 94 29 97/52 (67) 99 01/24/20 09:00 93 20 110/57 (74) 96 01/24/20 08:56 93 01/24/20 08:30 93 27 98 01/24/20 08:00 99.5 95 24 108/56 (73) 98 01/24/20 08:00 98 01/24/20 08:00 99.5 94 21 97/52 (67) 99 01/24/20 07:30 94 21 106/58 (74) 99 01/24/20 07:30 97 24 98 01/24/20 07:20 30 01/24/20 07:13 100.0 01/24/20 07:07 93 33 40 01/24/20 07:00 94 14 105/58 (74) 99 01/24/20 07:00 94 20 105/58 (74) 97 01/24/20 06:30 86 26 01/24/20 06:24 110/52 01/24/20 06:02 92 28 105/80 (88) 100 01/24/20 05:30 93 29 105/50 (68) 100 01/24/20 05:00 97 27 104/56 (72) 100 01/24/20 04:30 99.5 95 32 100/50 (67) 97 01/24/20 04:00 93 01/24/20 04:00 Mechanical Ventilator 01/24/20 04:00 96 30 95/47 (63) 100 01/24/20 03:30 97 31 105/46 (65) 100 01/24/20 03:12 95 34 40 01/24/20 03:00 96 21 106/55 (72) 100 01/24/20 02:30 98 19 100/65 (77) 100 01/24/20 02:00 96 32 110/48 (68) 99 01/24/20 01:30 97 32 110/48 (68) 99 01/24/20 01:00 95 36 96/49 (65) 99 01/24/20 00:30 99 31 99 01/24/20 00:30 99 31 96/49 (65) 99 01/24/20 00:06 98 29 112/44 (66) 100 01/24/20 00:00 98.5 98 32 100 01/24/20 00:00 98.5 98 32 112/45 (67) 100 01/24/20 00:00 98 32 100 01/24/20 00:00 Mechanical Ventilator 01/24/20 00:00 98.5 98 32 100 01/24/20 00:00 98 01/23/20 23:32 94 35 40 01/23/20 23:30 96 28 100/58 (72) 100 01/23/20 23:15 102/36 01/23/20 23:00 98 33 102/50 (67) 100 20 22:30 98 33 102/50 (67) 100 01/23/20 22:00 97 34 105/50 (68) 97 20 21:30 97 33 93/45 (61) 97 20 21:00 97 32 104/45 (64) 97 2020 20:30 100 31 101/46 (64) 97 2020 20:00 104 20 20:00 98.8 102 30 121/52 (75) 99 72020 20:00 Mechanical Ventilator 01/23/20 19:52 103 35 40 72020 19:30 86 27 112/93 (99) 94 01/23/20 19:00 98 35 105/46 (65) 97 20/20 18:35 96 32 114/51 (72) 97 01/23/20 18:00 99.9 100 32 121/50 (73) 99 01/23/20 17:30 100.8 126 35 120/61 (80) 100 01/23/20 17:00 126 35 90/55 (67) 98 01/23/20 16:30 132 33 107/62 (77) 98 01/23/20 16:00 Mechanical Ventilator 01/23/20 16:00 127 33 114/60 (78) 98 01/23/20 15:30 135 32 96/50 (65) 100 01/23/20 15:16 129 01/23/20 15:05 138 01/23/20 15:00 139 32 100/61 (74) 100 01/23/20 14:50 147 29 40 01/23/20 14:15 97/45 01/23/20 14:00 132 30 99/51 (67) 100 01/23/20 13:30 141 32 101/58 (72) 100 01/23/20 13:00 111 27 129/67 (87) 100 01/23/20 12:30 99.8 104 29 111/53 (72) 99 01/23/20 12:00 102 25 112/68 (83) 99 01/23/20 12:00 Mechanical Ventilator 01/23/20 11:53 103 01/23/20 11:32 100 34 40 01/23/20 11:30 102 22 119/69 (86) 98 01/23/20 11:00 100 28 116/50 (72) 98 Status: obtunded Condition: critical HEENT: normocephalic Lungs: clear Heart: HR/BP stable Abdomen: soft, feeding tube Extremities: no C/C/E Decubiti: stage Micro: Microbiology Date/Time Source Procedure Growth Status 01/22/20 09:40 Blood Blood Culture - Preliminary Gram Negative Bacillus 1 Resulted 01/22/20 09:30 Blood Blood Culture - Preliminary Gram Negative Bacillus 1 Resulted 01/22/20 03:30 Blood Blood Culture - Preliminary Gram Negative Bacillus 1 Resulted 01/22/20 03:15 Blood Blood Culture - Preliminary Gram Negative Bacillus 1 Resulted 01/22/20 14:40 Sputum Gram Stain - Final Resulted 01/22/20 14:40 Sputum Culture - Preliminary Gram Negative Bacillus 1 Resulted 01/22/20 14:40 Nasopharynx Coronavirus COVID-19 PCR (GERMÁN) - Final Complete 01/22/20 04:10 Nasopharynx SARS-CoV-2 RdRp Gene Assay - Final Complete 01/22/20 03:30 Urine,Clean Catch Urine Culture - Preliminary Gram Negative Bacillus 1 Resulted 01/22/20 04:00 Rectum Received Critical Care - Subjective ROS Limited/Unobtainable: Yes Condition: critical EKG Rhythm: Sinus Rhythm FI02: 30 Vent Support Breath Rate: 16 Vent Support Mode: AC Vent Tidal Volume: 500 Sputum Amount: Small PEEP: 5.0 PIP: 41 I&O: Intake and Output 01/23/20 01/24/20 19:00 07:00 Intake Total 1277.5 ml 1672 ml Output Total 130 ml 270 ml Balance 1147.5 ml 1402 ml Intake IV Total 1277.5 ml 1672 ml Output Urine Total 130 ml 270 ml # Bowel Movements 1 CXR: no change Labs: Laboratory Tests Test 01/23/20 18:28 01/24/20 03:40 01/24/20 07:07 01/24/20 09:05 Random Amikacin Level 13.3 MG/L White Blood Count 25.2 K/UL (4.8-10.8) *H Red Blood Count 2.70 M/UL (4.70-6.10) L Hemoglobin 8.2 G/DL (14.2-18.0) L Hematocrit 26.4 % (42.0-52.0) L Mean Corpuscular Volume 98 FL (80-99) Mean Corpuscular Hemoglobin 30.3 PG (27.0-31.0) Mean Corpuscular Hemoglobin Concent 31.0 G/DL (32.0-36.0) L Red Cell Distribution Width 15.8 % (11.6-14.8) H Platelet Count 106 K/UL (150-450) L Mean Platelet Volume 7.8 FL (6.5-10.1) Neutrophils (%) (Auto) % (45.0-75.0) Lymphocytes (%) (Auto) % (20.0-45.0) Monocytes (%) (Auto) % (1.0-10.0) Eosinophils (%) (Auto) % (0.0-3.0) Basophils (%) (Auto) % (0.0-2.0) Differential Total Cells Counted 100 Neutrophils % (Manual) 84 % (45-75) H Lymphocytes % (Manual) 5 % (20-45) L Monocytes % (Manual) 1 % (1-10) Eosinophils % (Manual) 0 % (0-3) Basophils % (Manual) 0 % (0-2) Band Neutrophils 10 % (0-8) H Platelet Estimate Decreased L Platelet Morphology Clumped Platelets 1+ Hypochromasia 1+ Anisocytosis 1+ Sodium Level 147 MMOL/L (136-145) H Potassium Level 6.1 MMOL/L (3.5-5.1) *H Chloride Level 118 MMOL/L (98-107) H Carbon Dioxide Level 19 MMOL/L (21-32) L Anion Gap 10 mmol/L (5-15) Blood Urea Nitrogen 165 mg/dL (7-18) H Creatinine 3.7 MG/DL (0.55-1.30) H Estimat Glomerular Filtration Rate 15.8 mL/min (>60) Glucose Level 75 MG/DL (74-106) Calcium Level 8.4 MG/DL (8.5-10.1) L Phosphorus Level 3.0 MG/DL (2.5-4.9) Magnesium Level 2.3 MG/DL (1.8-2.4) Total Bilirubin 0.4 MG/DL (0.2-1.0) Aspartate Amino Transf (AST/SGOT) 39 U/L (15-37) H Alanine Aminotransferase (ALT/SGPT) 30 U/L (12-78) Alkaline Phosphatase 103 U/L (46-116) Total Protein 6.9 G/DL (6.4-8.2) Albumin 1.0 G/DL (3.4-5.0) L Globulin 5.9 g/dL Albumin/Globulin Ratio 0.2 (1.0-2.7) L Random Vancomycin Level 25.1 ug/mL Arterial Blood pH 7.309 (7.350-7.450) Arterial Blood Partial Pressure CO2 32.0 mmHg (35.0-45.0) L Arterial Blood Partial Pressure O2 378.5 mmHg (75.0-100.0) H Arterial Blood HCO3 15.7 mmol/L (22.0-26.0) *L Arterial Blood Oxygen Saturation 99.5 % (95-100) Arterial Blood Base Excess -9.6 (-2-2) *L Behzad Test Positive D-Dimer 12.97 mg/L FEU (0.00-0.49) H Dennis Woodall MD Jan 24, 2020 10:51
--- NOTE | 2020-01-24 11:17 | Surgery Progress Note ---
Surgery Progress Note Subjective Additional Comments leukocytosis anemia lactic acid improved no n/v/f/c ill appearing dressings okay Objective Last 24 Hour Vital Signs Date Time Temp Pulse Resp B/P (MAP) Pulse Ox O2 Delivery O2 Flow Rate FiO2 01/24/20 10:00 94 29 97/52 (67) 99 01/24/20 09:00 93 20 110/57 (74) 96 01/24/20 08:56 93 01/24/20 08:30 93 27 98 01/24/20 08:00 99.5 95 24 108/56 (73) 98 01/24/20 08:00 98 01/24/20 08:00 99.5 94 21 97/52 (67) 99 01/24/20 08:00 Mechanical Ventilator 01/24/20 07:30 94 21 106/58 (74) 99 01/24/20 07:30 97 24 98 01/24/20 07:20 30 01/24/20 07:13 100.0 01/24/20 07:07 93 33 40 01/24/20 07:00 94 14 105/58 (74) 99 01/24/20 07:00 94 20 105/58 (74) 97 01/24/20 06:30 86 26 01/24/20 06:24 110/52 01/24/20 06:02 92 28 105/80 (88) 100 01/24/20 05:30 93 29 105/50 (68) 100 01/24/20 05:00 97 27 104/56 (72) 100 01/24/20 04:30 99.5 95 32 100/50 (67) 97 01/24/20 04:00 93 01/24/20 04:00 Mechanical Ventilator 01/24/20 04:00 96 30 95/47 (63) 100 01/24/20 03:30 97 31 105/46 (65) 100 01/24/20 03:12 95 34 40 01/24/20 03:00 96 21 106/55 (72) 100 01/24/20 02:30 98 19 100/65 (77) 100 01/24/20 02:00 96 32 110/48 (68) 99 01/24/20 01:30 97 32 110/48 (68) 99 01/24/20 01:00 95 36 96/49 (65) 99 7/21/20 00:30 99 31 99 7/21/20 00:30 99 31 96/49 (65) 99 7/21/20 00:06 98 29 112/44 (66) 100 7/21/20 00:00 98.5 98 32 100 7/21/20 00:00 98.5 98 32 112/45 (67) 100 7/21/20 00:00 98 32 100 7/21/20 00:00 Mechanical Ventilator 20 00:00 98.5 98 32 100 7//20 00:00 98 7/20/20 23:32 94 35 40 7/20/20 23:30 96 28 100/58 (72) 100 7/20/20 23:15 102/36 7/20/20 23:00 98 33 102/50 (67) 100 7/20/20 22:30 98 33 102/50 (67) 100 7/20/20 22:00 97 34 105/50 (68) 97 7/20/20 21:30 97 33 93/45 (61) 97 7/20/20 21:00 97 32 104/45 (64) 97 7/20/20 20:30 100 31 101/46 (64) 97 7/20/20 20:00 104 7/20/20 20:00 98.8 102 30 121/52 (75) 99 7/20/20 20:00 Mechanical Ventilator 20 19:52 103 35 40 7/20/20 19:30 86 27 112/93 (99) 94 7/20/20 19:00 98 35 105/46 (65) 97 7/20/20 18:35 96 32 114/51 (72) 97 7/20/20 18:00 99.9 100 32 121/50 (73) 99 7/20/20 17:30 100.8 126 35 120/61 (80) 100 7/20/20 17:00 126 35 90/55 (67) 98 7/20/20 16:30 132 33 107/62 (77) 98 7/20/20 16:00 Mechanical Ventilator 72020 16:00 127 33 114/60 (78) 98 7/20/20 15:30 135 32 96/50 (65) 100 7/20/20 15:16 129 7/20/20 15:05 138 7/20/20 15:00 139 32 100/61 (74) 100 01/23/20 14:50 147 29 40 01/23/20 14:15 97/45 01/23/20 14:00 132 30 99/51 (67) 100 01/23/20 13:30 141 32 101/58 (72) 100 01/23/20 13:00 111 27 129/67 (87) 100 01/23/20 12:30 99.8 104 29 111/53 (72) 99 01/23/20 12:00 102 25 112/68 (83) 99 01/23/20 12:00 Mechanical Ventilator 01/23/20 11:53 103 01/23/20 11:32 100 34 40 01/23/20 11:30 102 22 119/69 (86) 98 I&O Intake and Output 01/23/20 01/24/20 19:00 07:00 Intake Total 1277.5 ml 1672 ml Output Total 130 ml 270 ml Balance 1147.5 ml 1402 ml Intake IV Total 1277.5 ml 1672 ml Output Urine Total 130 ml 270 ml # Bowel Movements 1 Dressing: saturated Cardiovascular: RSR Respiratory: decreased breath sounds Abdomen: soft, non-tender, present bowel sounds Extremities: no tenderness, no cyanosis Laboratory Tests Test 01/23/20 18:28 01/24/20 03:40 01/24/20 07:07 01/24/20 09:05 Random Amikacin Level 13.3 MG/L White Blood Count 25.2 K/UL (4.8-10.8) *H Red Blood Count 2.70 M/UL (4.70-6.10) L Hemoglobin 8.2 G/DL (14.2-18.0) L Hematocrit 26.4 % (42.0-52.0) L Mean Corpuscular Volume 98 FL (80-99) Mean Corpuscular Hemoglobin 30.3 PG (27.0-31.0) Mean Corpuscular Hemoglobin Concent 31.0 G/DL (32.0-36.0) L Red Cell Distribution Width 15.8 % (11.6-14.8) H Platelet Count 106 K/UL (150-450) L Mean Platelet Volume 7.8 FL (6.5-10.1) Neutrophils (%) (Auto) % (45.0-75.0) Lymphocytes (%) (Auto) % (20.0-45.0) Monocytes (%) (Auto) % (1.0-10.0) Eosinophils (%) (Auto) % (0.0-3.0) Basophils (%) (Auto) % (0.0-2.0) Differential Total Cells Counted 100 Neutrophils % (Manual) 84 % (45-75) H Lymphocytes % (Manual) 5 % (20-45) L Monocytes % (Manual) 1 % (1-10) Eosinophils % (Manual) 0 % (0-3) Basophils % (Manual) 0 % (0-2) Band Neutrophils 10 % (0-8) H Platelet Estimate Decreased L Platelet Morphology Clumped Platelets 1+ Hypochromasia 1+ Anisocytosis 1+ Sodium Level 147 MMOL/L (136-145) H Potassium Level 6.1 MMOL/L (3.5-5.1) *H Chloride Level 118 MMOL/L (98-107) H Carbon Dioxide Level 19 MMOL/L (21-32) L Anion Gap 10 mmol/L (5-15) Blood Urea Nitrogen 165 mg/dL (7-18) H Creatinine 3.7 MG/DL (0.55-1.30) H Estimat Glomerular Filtration Rate 15.8 mL/min (>60) Glucose Level 75 MG/DL (74-106) Calcium Level 8.4 MG/DL (8.5-10.1) L Phosphorus Level 3.0 MG/DL (2.5-4.9) Magnesium Level 2.3 MG/DL (1.8-2.4) Total Bilirubin 0.4 MG/DL (0.2-1.0) Aspartate Amino Transf (AST/SGOT) 39 U/L (15-37) H Alanine Aminotransferase (ALT/SGPT) 30 U/L (12-78) Alkaline Phosphatase 103 U/L (46-116) Total Protein 6.9 G/DL (6.4-8.2) Albumin 1.0 G/DL (3.4-5.0) L Globulin 5.9 g/dL Albumin/Globulin Ratio 0.2 (1.0-2.7) L Random Vancomycin Level 25.1 ug/mL Arterial Blood pH 7.309 (7.350-7.450) Arterial Blood Partial Pressure CO2 32.0 mmHg (35.0-45.0) L Arterial Blood Partial Pressure O2 378.5 mmHg (75.0-100.0) H Arterial Blood HCO3 15.7 mmol/L (22.0-26.0) *L Arterial Blood Oxygen Saturation 99.5 % (95-100) Arterial Blood Base Excess -9.6 (-2-2) *L Behzad Test Positive D-Dimer 12.97 mg/L FEU (0.00-0.49) H Plan Problems: (1) Dehydration (2) Urinary tract infection (3) Ventilator dependent (4) Bilateral pleural effusion (5) Decubitus skin ulcer Assessment & Plan: Pt presented on admission with in grossly unkempt state, with Contractures and multiple Pressure injuries.Skin turgor is poor. Color is dusky. Generalized dry,scaly skin. Gastrostomy stoma is eroded and oozing moderate amt malodorous,Black,mud consistency exudate. Clusters of Unstageabloe Pressure injury Thoracic Spine. Base of wound has multiple small islands of slough with soft erythematous bridges giving wound appearance of multiple wounds. Area measuring (L)4cm x (W)3.6cm. In close proximity, to L of thoracic spine is a Partial thickness Pressure injury(L)5cm x (W)3.5cm. Base of wound is cade with macerated borders.Small amt sanguineous exudate noted. Resolving Full thickness 4 Pressure injury R Trochanter(L)0.7cm x (W)1.2cm, slight tunneled area at 11o'clock by 0.3cm. Surrounding pink epithelial bordered by hyperpigmentation. NO odor or exudate noted. Partial thickness shearing noted over Previously compromised skin (L)9cm x (W) 10.5cm. Base of wound is erythematous with multiple Scattered satellite lesions that are oozing sanguineous exudate. Unstageable Pressure injury distally, medial R Tibia(L)1.3cm x (W)1.1 cm . Base of wound is 100% yellow slough with marginal erythematous borders. No odor or exudate noted. Xerosis skin periwound. Pressure injury R Hallux. Base of wound is 40% dry eschar ,60% pink epithelial. No exudate noted. No erythema or fluctuance periwound. R Heel is boggy with non-blanchable erythema. Wound Plantar R foot(L)0.6cm x (W)0.8cm. 100% slough at base of wound . Marginal erythema along edges. Periwound is fluctuant and erythematous. At web space between R 1st and 2nd metatarsals is a Partial Thickness wound that is cade and oozing small amt sanguineous exudate. At Plantar aspect of R 3rd metatarsal noted to be oozing small amt Sanguineous exudate. Assessment of wound is not fully appreciated secondary to clubbing of metatarsals. Swabbed with Betadine and small gauze pressure drsg applied. Resolving Pressure Injury L Heel(L)6.5cm x (W)5cm. Base of wound is 90% pink epithelial, 10% dry eschar. NO odor or exudate noted . Scattered small dry,black scabs noted to R and L dorsal aspects feet ,including dorsal aspects of metatarsals both feet. Cleanse wounds Thoracic Spine with Saline. Apply TheraHoney. Apply Cavilon Skin Barrier Periwound. Cover with Optifoam drsg.Change every 3 days and prn. Apply Moisture Barrier Paste to Buttocks. Cover with Optifoam drsg. Change every 3 days and prn. Apply Betadine to wounds both feet. Cover with Abd pads and wrap each foot with Kerlix drsg. Wash GT site with Soap and Water and apply Loose Gauze drsg Daily and prn. Cleanse wound R trochanter with saline. Apply Therahoney,Apply Cavilon Periwound. Cover with Optifoam drsg. Change every 3 days and prn. Cleanse wounds L hip and L trochanter with Saline. Apply Therahoney. Apply Cavilon periwound .Cover with Optifoam drsg every 3 days and prn. Cleanse wounds L scapula with Saline. Apply TheraHoney. Apply Cavilon periwound.Cover with Optifoam drsg every 3 days and prn. Apply Triad paste to sacrum ,groin and scrotum with each Incontinence care. Cleanse wounds R and L foot with Saline. Apply TheraHoney. Cover wounds with Abd pads and wrap both feet with Kerlix gauze every 3 days and prn. Air Fluidized mattress. Reposition at least every 2hours or as tolerated. Place pillow between knees. Off-load heels with pillow. nutritional; optimization (6) funtional quadriplegia (7) Sepsis Assessment & Plan: labs reviewed on abx cxr noted unchanged wean as tolerated tf chris lira will monitor (8) Chronic respiratory failure (9) Pneumonia (10) Acute on chronic respiratory failure Assessment & Plan: Bilateral interstitial opacities, left basilar pleural fluid and/or consolidation, left lung volume loss appear unchanged. Tracheostomy remains. 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 2) Swallowing difficulty r/t respiratory failure as evidenced by pt is trach/ vent dep and GT dependent. CURRENT TF:NPO ENTERAL NUTRITION RECOMMENDATIONS: Nepro @ 45ml/hr x 24 hrs to provide 1080ml, 1944kcal, 87g prot, 785ml free water FEED W/ HEMODYNAMIC STABILITY -> Rec Nepro at this time due to ARF, K consistently elev, now 6.2* -> Initiate Nepro @ 15ml/hr x 6hrs, advance 10ml q 4-6 hrs as tolerated to goal rate -> HOB over 30 degrees/ water flush per MD Without hemodynamic stability, rec trophic feeding of Nepro @ 5ml/hr x 24hrs ADDITIONAL RECOMMENDATIONS: * PER SNF: HT=72 inches, ZQ=593grs (01/08) vs EMR HT= 65" inches and RQ=473kgy -> RECALIBRATE BEDSCALE * Monitor renal fxn and lytes, need for continued rec for Nepro * Monitor HD stability: NE @ 6mcg * Wound healing: add vit C 500mg BID, [place] BID w/ TF order * Consider accuchecks for close BG monitoring for hypoglycemia -> cont D5 while pt NPO (13) Protein-calorie malnutrition, severe (14) At high risk for aspiration (15) ATN (acute tubular necrosis) (16) Severe anemia (17) Encephalopathy acute Stanislav Avelar Jan 24, 2020 11:17
--- NOTE | 2020-01-24 12:19 | Diagnostic Imaging Report ---
Indication: Dyspnea Technique: One view of the chest Comparison: 01/23/2020 Findings: Again demonstrated is left lateral pleural thickening and left lung volume loss. Again demonstrated is interstitial disease throughout the left lung as well as right perihilar and basilar interstitial opacities. There is probably a small right pleural effusion. Dense material is now seen within the stomach. Right subclavian central venous catheter making a hairpin loop is again demonstrated. Tracheostomy again demonstrated. Impression: Unchanged, over one day, findings as above.
--- NOTE | 2020-01-24 13:05 | Nephrology Progress Note ---
Assessment/Plan Problem List: (1) FRIDA (acute kidney injury) (2) Sepsis (3) Ventilator dependent (4) Bilateral pleural effusion (5) Decubitus skin ulcer (6) Electrolyte imbalance Assessment: Hyperkalemia, hypernatremia Assessment FRIDA Dehydration, hypernatremia, hyperkalemia Anemia Chronic vent dependent, with superimposed acute component Bilateral pleural effusion Sepsis, leukocytosis, UTI Functional quadriplegia History of coronary artery disease and MN Multiple decubiti Chronic malnutrition Plan January 23: Potassium remains high. Kayexalate given. Bicitra started. Midodrin started. Patient DNR now. Continue per consultants. Overall prognosis poor. Hemodynamically unstable for dialysis treatment. Per order. Patient is doing poorly. No urine output. Labs reviewed. Discussed with RN and Miles. Kayexalate given for hyperkalemia. IV D5 and a half normal saline Pressors Antibiotics Skin care Continue per consultants Monitor renal parameters Avoid nephrotoxic's Patient now DNR. No candidate for dialysis treatment due to multiple medical issues, sepsis, poor prognosis. Subjective ROS Limited/Unobtainable: Yes Objective Objective Last 24 Hour Vital Signs Date Time Temp Pulse Resp B/P (MAP) Pulse Ox O2 Delivery O2 Flow Rate FiO2 01/24/20 12:00 93 01/24/20 12:00 93 32 99/49 (66) 97 01/24/20 11:30 95 23 102/49 (66) 99 01/24/20 11:00 93 30 98/53 (68) 100 01/24/20 10:56 95 25 30 01/24/20 10:30 91 30 102/53 (69) 100 01/24/20 10:00 94 29 97/52 (67) 99 01/24/20 09:00 93 20 110/57 (74) 96 01/24/20 08:56 93 01/24/20 08:30 93 27 98 01/24/20 08:00 99.5 95 24 108/56 (73) 98 01/24/20 08:00 98 01/24/20 08:00 99.5 94 21 97/52 (67) 99 01/24/20 08:00 Mechanical Ventilator 01/24/20 07:30 94 21 106/58 (74) 99 01/24/20 07:30 97 24 98 01/24/20 07:20 30 01/24/20 07:13 100.0 01/24/20 07:07 93 33 40 01/24/20 07:00 94 14 105/58 (74) 99 01/24/20 07:00 94 20 105/58 (74) 97 01/24/20 06:30 86 26 01/24/20 06:24 110/52 01/24/20 06:02 92 28 105/80 (88) 100 01/24/20 05:30 93 29 105/50 (68) 100 01/24/20 05:00 97 27 104/56 (72) 100 01/24/20 04:30 99.5 95 32 100/50 (67) 97 01/24/20 04:00 93 01/24/20 04:00 Mechanical Ventilator 01/24/20 04:00 96 30 95/47 (63) 100 01/24/20 03:30 97 31 105/46 (65) 100 01/24/20 03:12 95 34 40 01/24/20 03:00 96 21 106/55 (72) 100 01/24/20 02:30 98 19 100/65 (77) 100 01/24/20 02:00 96 32 110/48 (68) 99 01/24/20 01:30 97 32 110/48 (68) 99 01/24/20 01:00 95 36 96/49 (65) 99 01/24/20 00:30 99 31 99 01/24/20 00:30 99 31 96/49 (65) 99 01/24/20 00:06 98 29 112/44 (66) 100 01/24/20 00:00 98.5 98 32 100 01/24/20 00:00 98.5 98 32 112/45 (67) 100 01/24/20 00:00 98 32 100 01/24/20 00:00 Mechanical Ventilator 01/24/20 00:00 98.5 98 32 100 01/24/20 00:00 98 01/23/20 23:32 94 35 40 01/23/20 23:30 96 28 100/58 (72) 100 01/23/20 23:15 102/36 01/23/20 23:00 98 33 102/50 (67) 100 01/23/20 22:30 98 33 102/50 (67) 100 7/20/20 22:00 97 34 105/50 (68) 97 01/23/20 21:30 97 33 93/45 (61) 97 01/23/20 21:00 97 32 104/45 (64) 97 01/23/20 20:30 100 31 101/46 (64) 97 01/23/20 20:00 104 01/23/20 20:00 98.8 102 30 121/52 (75) 99 01/23/20 20:00 Mechanical Ventilator 01/23/20 19:52 103 35 40 01/23/20 19:30 86 27 112/93 (99) 94 01/23/20 19:00 98 35 105/46 (65) 97 01/23/20 18:35 96 32 114/51 (72) 97 01/23/20 18:00 99.9 100 32 121/50 (73) 99 01/23/20 17:30 100.8 126 35 120/61 (80) 100 01/23/20 17:00 126 35 90/55 (67) 98 01/23/20 16:30 132 33 107/62 (77) 98 01/23/20 16:00 Mechanical Ventilator 01/23/20 16:00 127 33 114/60 (78) 98 01/23/20 15:30 135 32 96/50 (65) 100 01/23/20 15:16 129 01/23/20 15:05 138 01/23/20 15:00 139 32 100/61 (74) 100 01/23/20 14:50 147 29 40 01/23/20 14:15 97/45 01/23/20 14:00 132 30 99/51 (67) 100 01/23/20 13:30 141 32 101/58 (72) 100 Intake and Output 01/23/20 01/24/20 19:00 07:00 Intake Total 1277.5 ml 1672 ml Output Total 130 ml 270 ml Balance 1147.5 ml 1402 ml Intake IV Total 1277.5 ml 1672 ml Output Urine Total 130 ml 270 ml # Bowel Movements 1 Laboratory Tests 01/23/20 18:28: Random Amikacin Level 13.3 01/24/20 03:40: White Blood Count 25.2*H, Red Blood Count 2.70L, Hemoglobin 8.2L, Hematocrit 26.4L, Mean Corpuscular Volume 98, Mean Corpuscular Hemoglobin 30.3, Mean Corpuscular Hemoglobin Concent 31.0L, Red Cell Distribution Width 15.8H, Platelet Count 106L, Mean Platelet Volume 7.8, Neutrophils (%) (Auto) , Lymphocytes (%) (Auto) , Monocytes (%) (Auto) , Eosinophils (%) (Auto) , Basophils (%) (Auto) , Differential Total Cells Counted 100, Neutrophils % ( Manual) 84H, Lymphocytes % (Manual) 5L, Monocytes % (Manual) 1, Eosinophils % ( Manual) 0, Basophils % (Manual) 0, Band Neutrophils 10H, Platelet Estimate DecreasedL, Platelet Morphology , Clumped Platelets 1+, Hypochromasia 1+, Anisocytosis 1+, Sodium Level 147H, Potassium Level 6.1*H, Chloride Level 118H, Carbon Dioxide Level 19L, Anion Gap 10, Blood Urea Nitrogen 165H, Creatinine 3.7H, Estimat Glomerular Filtration Rate 15.8, Glucose Level 75, Calcium Level 8.4L, Phosphorus Level 3.0, Magnesium Level 2.3, Total Bilirubin 0.4, Aspartate Amino Transf (AST/SGOT) 39H, Alanine Aminotransferase (ALT/SGPT) 30, Alkaline Phosphatase 103, Total Protein 6.9, Albumin 1.0L, Globulin 5.9, Albumin/ Globulin Ratio 0.2L, Random Vancomycin Level 25.1 01/24/20 07:07: Arterial Blood pH 7.309L, Arterial Blood Partial Pressure CO2 32.0L, Arterial Blood Partial Pressure O2 378.5H, Arterial Blood HCO3 15.7*L, Arterial Blood Oxygen Saturation 99.5, Arterial Blood Base Excess -9.6*L, Behzad Test Positive 01/24/20 09:05: D-Dimer 12.97H Height (Feet): 5 Height (Inches): 5.00 Weight (Pounds): 145 General Appearance: no apparent distress EENT: other - Trach vent Cardiovascular: tachycardia Respiratory/Chest: decreased breath sounds Abdomen: distended Ronnie Guevara MD Jan 24, 2020 13:05
--- NOTE | 2020-01-24 13:57 | Infectious Diseases Prog Note ---
Assessment/Plan Assessment: Septic Shock High grade Gram neg bacteremia- from UTI and obstructive uropathy -01/21 BCx GNR x8; 01/22 Bcx p Pneumonia- COVID neg x2 (on same day) Acute on chronic respiratory failure - SP trach/vent dependant -01/23 CXR: Again demonstrated is interstitial disease throughout the left lung as well as right perihilar and basilar interstitial opacities. There is probably a small right pleural effusion. -sp cx GNR -01/21 rapid COVID neg, COVID NAAT neg Low grade fever, ongoing Severe leukocytosis; improving UTI -u/a wbc 10-15, nit neg, leuk +3; ucx >100k GNR Hypernatremia Hyperkalemia FRIDA metabolic acidosis -Renal US: Limited exam, as described, poor visualization of the left kidney. Right and probably left hydronephrosis. Probable bladder mass. 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 Will continue to follow along with you. Katie jain RN. Subjective Allergies: Coded Allergies: NSAIDS (NON-STEROIDAL ANTI-INFLAMMA (Unverified Allergy, Unknown, 11/27/18) PIPERACILLIN (Unverified Allergy, Unknown, 01/25/19) tolerates carbapenem TAZOBACTAM (Unverified Allergy, Unknown, 11/27/18) Uncoded Allergies: NSAID (Allergy, Unknown, 09/14/18) Tm 100 Fio2 30% wbc improving hyperkalemic, acidotic levophed remians at 8 Objective Last 24 Hour Vital Signs Date Time Temp Pulse Resp B/P (MAP) Pulse Ox O2 Delivery O2 Flow Rate FiO2 01/24/20 13:31 99 29 99/63 (75) 100 01/24/20 13:00 91 31 88/44 (59) 97 01/24/20 12:00 93 01/24/20 12:00 93 32 99/49 (66) 97 01/24/20 11:30 95 23 102/49 (66) 99 01/24/20 11:00 93 30 98/53 (68) 100 01/24/20 10:56 95 25 30 01/24/20 10:30 91 30 102/53 (69) 100 01/24/20 10:00 94 29 97/52 (67) 99 01/24/20 09:00 93 20 110/57 (74) 96 01/24/20 08:56 93 01/24/20 08:30 93 27 98 01/24/20 08:00 99.5 95 24 108/56 (73) 98 01/24/20 08:00 98 01/24/20 08:00 99.5 94 21 97/52 (67) 99 01/24/20 08:00 Mechanical Ventilator 01/24/20 07:30 94 21 106/58 (74) 99 01/24/20 07:30 97 24 98 01/24/20 07:20 30 01/24/20 07:13 100.0 01/24/20 07:07 93 33 40 01/24/20 07:00 94 14 105/58 (74) 99 01/24/20 07:00 94 20 105/58 (74) 97 01/24/20 06:30 86 26 01/24/20 06:24 110/52 01/24/20 06:02 92 28 105/80 (88) 100 01/24/20 05:30 93 29 105/50 (68) 100 01/24/20 05:00 97 27 104/56 (72) 100 01/24/20 04:30 99.5 95 32 100/50 (67) 97 01/24/20 04:00 93 01/24/20 04:00 Mechanical Ventilator 01/24/20 04:00 96 30 95/47 (63) 100 01/24/20 03:30 97 31 105/46 (65) 100 01/24/20 03:12 95 34 40 7/21/20 03:00 96 21 106/55 (72) 100 01/24/20 02:30 98 19 100/65 (77) 100 01/24/20 02:00 96 32 110/48 (68) 99 20 01:30 97 32 110/48 (68) 99 20 01:00 95 36 96/49 (65) 99 20 00:30 99 31 99 01/24/20 00:30 99 31 96/49 (65) 99 01/24/20 00:06 98 29 112/44 (66) 100 01/24/20 00:00 98.5 98 32 100 01/24/20 00:00 98.5 98 32 112/45 (67) 100 01/24/20 00:00 98 32 100 01/24/20 00:00 Mechanical Ventilator 01/24/20 00:00 98.5 98 32 100 01/24/20 00:00 98 01/23/20 23:32 94 35 40 01/23/20 23:30 96 28 100/58 (72) 100 01/23/20 23:15 102/36 20 23:00 98 33 102/50 (67) 100 7/2020 22:30 98 33 102/50 (67) 100 20 22:00 97 34 105/50 (68) 97 20 21:30 97 33 93/45 (61) 97 /2020 21:00 97 32 104/45 (64) 97 2020 20:30 100 31 101/46 (64) 97 2020 20:00 104 2020 20:00 98.8 102 30 121/52 (75) 99 72020 20:00 Mechanical Ventilator 01/23/20 19:52 103 35 40 7/20/20 19:30 86 27 112/93 (99) 94 20 19:00 98 35 105/46 (65) 97 2020 18:35 96 32 114/51 (72) 97 7/2020 18:00 99.9 100 32 121/50 (73) 99 7/20/20 17:30 100.8 126 35 120/61 (80) 100 72020 17:00 126 35 90/55 (67) 98 72020 16:30 132 33 107/62 (77) 98 01/23/20 16:00 Mechanical Ventilator 01/23/20 16:00 127 33 114/60 (78) 98 01/23/20 15:30 135 32 96/50 (65) 100 01/23/20 15:16 129 01/23/20 15:05 138 01/23/20 15:00 139 32 100/61 (74) 100 01/23/20 14:50 147 29 40 01/23/20 14:15 97/45 01/23/20 14:00 132 30 99/51 (67) 100 Height (Feet): 5 Height (Inches): 5.00 Weight (Pounds): 145 General Appearance: lethargic, Chronically Ill Head: normocephalic ENT: dry mucus membranes, trach to vent Neck: limited range of motion, tracheotomy Respiratory: decreased breath sounds Cardiovascular #1: Tachycardic Gastrointestinal: non tender, soft, GT tube in place Microbiology Date/Time Source Procedure Growth Status 01/22/20 09:40 Blood Blood Culture - Preliminary Gram Negative Bacillus 1 Resulted 01/22/20 09:30 Blood Blood Culture - Preliminary Gram Negative Bacillus 1 Resulted 01/22/20 03:30 Blood Blood Culture - Preliminary Gram Negative Bacillus 1 Resulted 01/22/20 03:15 Blood Blood Culture - Preliminary Gram Negative Bacillus 1 Resulted 01/22/20 14:40 Sputum Gram Stain - Final Resulted 01/22/20 14:40 Sputum Culture - Preliminary Gram Negative Bacillus 1 Resulted 01/22/20 14:40 Nasopharynx Coronavirus COVID-19 PCR (GERMÁN) - Final Complete 01/22/20 04:10 Nasopharynx SARS-CoV-2 RdRp Gene Assay - Final Complete 01/22/20 03:30 Urine,Clean Catch Urine Culture - Preliminary Gram Negative Bacillus 1 Resulted 01/22/20 04:00 Rectum Received Laboratory Tests Test 01/23/20 18:28 01/24/20 03:40 01/24/20 07:07 01/24/20 09:05 Random Amikacin Level 13.3 MG/L White Blood Count 25.2 K/UL (4.8-10.8) *H Red Blood Count 2.70 M/UL (4.70-6.10) L Hemoglobin 8.2 G/DL (14.2-18.0) L Hematocrit 26.4 % (42.0-52.0) L Mean Corpuscular Volume 98 FL (80-99) Mean Corpuscular Hemoglobin 30.3 PG (27.0-31.0) Mean Corpuscular Hemoglobin Concent 31.0 G/DL (32.0-36.0) L Red Cell Distribution Width 15.8 % (11.6-14.8) H Platelet Count 106 K/UL (150-450) L Mean Platelet Volume 7.8 FL (6.5-10.1) Neutrophils (%) (Auto) % (45.0-75.0) Lymphocytes (%) (Auto) % (20.0-45.0) Monocytes (%) (Auto) % (1.0-10.0) Eosinophils (%) (Auto) % (0.0-3.0) Basophils (%) (Auto) % (0.0-2.0) Differential Total Cells Counted 100 Neutrophils % (Manual) 84 % (45-75) H Lymphocytes % (Manual) 5 % (20-45) L Monocytes % (Manual) 1 % (1-10) Eosinophils % (Manual) 0 % (0-3) Basophils % (Manual) 0 % (0-2) Band Neutrophils 10 % (0-8) H Platelet Estimate Decreased L Platelet Morphology Clumped Platelets 1+ Hypochromasia 1+ Anisocytosis 1+ Sodium Level 147 MMOL/L (136-145) H Potassium Level 6.1 MMOL/L (3.5-5.1) *H Chloride Level 118 MMOL/L (98-107) H Carbon Dioxide Level 19 MMOL/L (21-32) L Anion Gap 10 mmol/L (5-15) Blood Urea Nitrogen 165 mg/dL (7-18) H Creatinine 3.7 MG/DL (0.55-1.30) H Estimat Glomerular Filtration Rate 15.8 mL/min (>60) Glucose Level 75 MG/DL (74-106) Calcium Level 8.4 MG/DL (8.5-10.1) L Phosphorus Level 3.0 MG/DL (2.5-4.9) Magnesium Level 2.3 MG/DL (1.8-2.4) Total Bilirubin 0.4 MG/DL (0.2-1.0) Aspartate Amino Transf (AST/SGOT) 39 U/L (15-37) H Alanine Aminotransferase (ALT/SGPT) 30 U/L (12-78) Alkaline Phosphatase 103 U/L (46-116) Total Protein 6.9 G/DL (6.4-8.2) Albumin 1.0 G/DL (3.4-5.0) L Globulin 5.9 g/dL Albumin/Globulin Ratio 0.2 (1.0-2.7) L Random Vancomycin Level 25.1 ug/mL Arterial Blood pH 7.309 (7.350-7.450) Arterial Blood Partial Pressure CO2 32.0 mmHg (35.0-45.0) L Arterial Blood Partial Pressure O2 378.5 mmHg (75.0-100.0) H Arterial Blood HCO3 15.7 mmol/L (22.0-26.0) *L Arterial Blood Oxygen Saturation 99.5 % (95-100) Arterial Blood Base Excess -9.6 (-2-2) *L Behzad Test Positive D-Dimer 12.97 mg/L FEU (0.00-0.49) H Current Medications Medications (Trade) Dose Ordered Sig/Margarette Route PRN Reason Start Time Stop Time Status Last Admin Dose Admin Acetaminophen (Tylenol) 650 mg Q4H PRN ORAL fever 01/22/20 08:15 02/21/20 08:14 01/24/20 06:44 Albuterol/ Ipratropium (Albuterol/ Ipratropium) 3 ml Q4H PRN HHN Shortness of Breath 01/22/20 08:15 01/27/20 08:14 Amikacin Protocol (Amikacin pharmacy to dose) 1 ea DAILY PRN MISC . 01/22/20 13:45 02/21/20 13:44 Amikacin Sulfate 250 mg/Dextrose 111 ml @ 111 mls/hr Q36H IV 01/24/20 10:00 01/31/20 09:59 01/24/20 10:24 Dextrose/Sodium Chloride 1,000 ml @ 125 mls/hr Q8H IV 01/22/20 11:30 02/21/20 11:29 01/24/20 05:00 Digoxin (Lanoxin) 0.125 mg DAILY IVP 01/24/20 09:00 04/23/20 08:59 01/24/20 08:56 Heparin Sodium (Porcine) (Heparin 5000 units/ml) 5,000 units EVERY 12 HOURS SUBQ 01/22/20 21:00 03/07/20 20:59 01/23/20 21:03 Lorazepam (Ativan 2mg/ml 1ml) 2 mg Q2H PRN IV For Anxiety 01/22/20 08:15 01/29/20 08:14 Meropenem 500 mg/ Sodium Chloride 55 ml @ 110 mls/hr Q12H IVPB 01/22/20 14:00 01/27/20 13:59 01/24/20 02:15 Midodrine (Pro-Amatine) 10 mg Q8HR GT 01/24/20 14:00 04/23/20 13:59 Morphine Sulfate (Morphine Sulfate) 4 mg Q4H PRN IVP Severe Pain (Pain Scale 7-10) 01/22/20 08:15 01/29/20 08:14 Norepinephrine Bitartrate 250 ml @ 0 mls/hr Q24H IV 01/22/20 15:00 04/21/20 14:59 01/24/20 06:24 Ondansetron HCl (Zofran) 4 mg Q6H PRN IVP Nausea & Vomiting 01/22/20 08:15 02/21/20 08:14 Pantoprazole (Protonix) 40 mg Q12HR IV 01/22/20 09:30 02/21/20 09:29 01/24/20 08:55 Polyethylene Glycol (Miralax) 17 gm DAILYPRN PRN ORAL Constipation 01/22/20 08:15 02/21/20 08:14 Sodium Polystyrene Sulfonate (Kayexalate) 30 gm ONCE ORAL 01/24/20 18:00 01/24/20 19:00 Sodium Citrate (Bicitra) 30 ml EVERY 6 HOURS GT 01/24/20 18:00 02/23/20 17:59 Vancomycin HCl ([facility] pharmacy to dose) 1 ea DAILY PRN [facility] TO DOSE 01/22/20 08:45 02/21/20 08:44 Lilly Dorantes M.D. Jan 24, 2020 13:57
[2020-01-24] MEDS: Midodrine 10mg tab GT SCH ×2 (14:27→21:40)
--- NOTE | 2020-01-24 14:33 | Cardiology Progress Note ---
Assessment/Plan Assessment/Plan 1. Septic shock. 2. Gram-negative shante bacteremia. 3. Respiratory failure, acute on chronic. 4. Pneumonia. 5. Chronic respiratory failure. 6. Atrial fibrillation, paroxysmal in nature. 7. Contracted extremities. 8. Decubitus ulcers. 9. Hypernatremia. 10. Renal failure. now in sinus still no afib since last ntie amiod if had recurrent of afib prognosis is poor abx vent support now covid neg will have echo vent support dialysis as hemodynamically allowed pressors abx dnr Subjective ROS Limited/Unobtainable: Yes Objective Last 24 Hour Vital Signs Date Time Temp Pulse Resp B/P (MAP) Pulse Ox O2 Delivery O2 Flow Rate FiO2 01/24/20 14:00 89 32 95/63 (74) 100 01/24/20 13:31 99 29 99/63 (75) 100 01/24/20 13:00 91 31 88/44 (59) 97 01/24/20 12:00 93 01/24/20 12:00 93 32 99/49 (66) 97 01/24/20 11:30 95 23 102/49 (66) 99 01/24/20 11:00 93 30 98/53 (68) 100 01/24/20 10:56 95 25 30 01/24/20 10:30 91 30 102/53 (69) 100 01/24/20 10:00 94 29 97/52 (67) 99 01/24/20 09:00 93 20 110/57 (74) 96 01/24/20 08:56 93 01/24/20 08:30 93 27 98 01/24/20 08:00 99.5 95 24 108/56 (73) 98 01/24/20 08:00 98 01/24/20 08:00 99.5 94 21 97/52 (67) 99 01/24/20 08:00 Mechanical Ventilator 01/24/20 07:30 94 21 106/58 (74) 99 01/24/20 07:30 97 24 98 01/24/20 07:20 30 01/24/20 07:13 100.0 01/24/20 07:07 93 33 40 01/24/20 07:00 94 14 105/58 (74) 99 01/24/20 07:00 94 20 105/58 (74) 97 01/24/20 06:30 86 26 01/24/20 06:24 110/52 01/24/20 06:02 92 28 105/80 (88) 100 01/24/20 05:30 93 29 105/50 (68) 100 01/24/20 05:00 97 27 104/56 (72) 100 01/24/20 04:30 99.5 95 32 100/50 (67) 97 01/24/20 04:00 93 01/24/20 04:00 Mechanical Ventilator 01/24/20 04:00 96 30 95/47 (63) 100 01/24/20 03:30 97 31 105/46 (65) 100 01/24/20 03:12 95 34 40 01/24/20 03:00 96 21 106/55 (72) 100 01/24/20 02:30 98 19 100/65 (77) 100 01/24/20 02:00 96 32 110/48 (68) 99 01/24/20 01:30 97 32 110/48 (68) 99 01/24/20 01:00 95 36 96/49 (65) 99 01/24/20 00:30 99 31 99 01/24/20 00:30 99 31 96/49 (65) 99 01/24/20 00:06 98 29 112/44 (66) 100 01/24/20 00:00 98.5 98 32 100 01/24/20 00:00 98.5 98 32 112/45 (67) 100 01/24/20 00:00 98 32 100 01/24/20 00:00 Mechanical Ventilator 01/24/20 00:00 98.5 98 32 100 01/24/20 00:00 98 01/23/20 23:32 94 35 40 01/23/20 23:30 96 28 100/58 (72) 100 01/23/20 23:15 102/36 01/23/20 23:00 98 33 102/50 (67) 100 20 22:30 98 33 102/50 (67) 100 01/23/20 22:00 97 34 105/50 (68) 97 01/23/20 21:30 97 33 93/45 (61) 97 01/23/20 21:00 97 32 104/45 (64) 97 20 20:30 100 31 101/46 (64) 97 01/23/20 20:00 104 01/23/20 20:00 98.8 102 30 121/52 (75) 99 01/23/20 20:00 Mechanical Ventilator 01/23/20 19:52 103 35 40 01/23/20 19:30 86 27 112/93 (99) 94 01/23/20 19:00 98 35 105/46 (65) 97 01/23/20 18:35 96 32 114/51 (72) 97 01/23/20 18:00 99.9 100 32 121/50 (73) 99 01/23/20 17:30 100.8 126 35 120/61 (80) 100 01/23/20 17:00 126 35 90/55 (67) 98 01/23/20 16:30 132 33 107/62 (77) 98 01/23/20 16:00 Mechanical Ventilator 01/23/20 16:00 127 33 114/60 (78) 98 01/23/20 15:30 135 32 96/50 (65) 100 01/23/20 15:16 129 01/23/20 15:05 138 01/23/20 15:00 139 32 100/61 (74) 100 01/23/20 14:50 147 29 40 General Appearance: no apparent distress, on vent, patient on isolation, isolation precautions Extremities: other - contracted Intake and Output 01/23/20 01/24/20 19:00 07:00 Intake Total 1277.5 ml 1672 ml Output Total 130 ml 270 ml Balance 1147.5 ml 1402 ml Intake IV Total 1277.5 ml 1672 ml Output Urine Total 130 ml 270 ml # Bowel Movements 1 Laboratory Tests Test 01/23/20 18:28 01/24/20 03:40 01/24/20 07:07 01/24/20 09:05 Random Amikacin Level 13.3 MG/L White Blood Count 25.2 K/UL (4.8-10.8) *H Red Blood Count 2.70 M/UL (4.70-6.10) L Hemoglobin 8.2 G/DL (14.2-18.0) L Hematocrit 26.4 % (42.0-52.0) L Mean Corpuscular Volume 98 FL (80-99) Mean Corpuscular Hemoglobin 30.3 PG (27.0-31.0) Mean Corpuscular Hemoglobin Concent 31.0 G/DL (32.0-36.0) L Red Cell Distribution Width 15.8 % (11.6-14.8) H Platelet Count 106 K/UL (150-450) L Mean Platelet Volume 7.8 FL (6.5-10.1) Neutrophils (%) (Auto) % (45.0-75.0) Lymphocytes (%) (Auto) % (20.0-45.0) Monocytes (%) (Auto) % (1.0-10.0) Eosinophils (%) (Auto) % (0.0-3.0) Basophils (%) (Auto) % (0.0-2.0) Differential Total Cells Counted 100 Neutrophils % (Manual) 84 % (45-75) H Lymphocytes % (Manual) 5 % (20-45) L Monocytes % (Manual) 1 % (1-10) Eosinophils % (Manual) 0 % (0-3) Basophils % (Manual) 0 % (0-2) Band Neutrophils 10 % (0-8) H Platelet Estimate Decreased L Platelet Morphology Clumped Platelets 1+ Hypochromasia 1+ Anisocytosis 1+ Sodium Level 147 MMOL/L (136-145) H Potassium Level 6.1 MMOL/L (3.5-5.1) *H Chloride Level 118 MMOL/L (98-107) H Carbon Dioxide Level 19 MMOL/L (21-32) L Anion Gap 10 mmol/L (5-15) Blood Urea Nitrogen 165 mg/dL (7-18) H Creatinine 3.7 MG/DL (0.55-1.30) H Estimat Glomerular Filtration Rate 15.8 mL/min (>60) Glucose Level 75 MG/DL (74-106) Calcium Level 8.4 MG/DL (8.5-10.1) L Phosphorus Level 3.0 MG/DL (2.5-4.9) Magnesium Level 2.3 MG/DL (1.8-2.4) Total Bilirubin 0.4 MG/DL (0.2-1.0) Aspartate Amino Transf (AST/SGOT) 39 U/L (15-37) H Alanine Aminotransferase (ALT/SGPT) 30 U/L (12-78) Alkaline Phosphatase 103 U/L (46-116) Total Protein 6.9 G/DL (6.4-8.2) Albumin 1.0 G/DL (3.4-5.0) L Globulin 5.9 g/dL Albumin/Globulin Ratio 0.2 (1.0-2.7) L Random Vancomycin Level 25.1 ug/mL Arterial Blood pH 7.309 (7.350-7.450) Arterial Blood Partial Pressure CO2 32.0 mmHg (35.0-45.0) L Arterial Blood Partial Pressure O2 378.5 mmHg (75.0-100.0) H Arterial Blood HCO3 15.7 mmol/L (22.0-26.0) *L Arterial Blood Oxygen Saturation 99.5 % (95-100) Arterial Blood Base Excess -9.6 (-2-2) *L Behzad Test Positive D-Dimer 12.97 mg/L FEU (0.00-0.49) H Microbiology Date/Time Source Procedure Growth Status 01/22/20 09:40 Blood Blood Culture - Preliminary Gram Negative Bacillus 1 Resulted 01/22/20 09:30 Blood Blood Culture - Preliminary Gram Negative Bacillus 1 Resulted 01/22/20 03:30 Blood Blood Culture - Preliminary Gram Negative Bacillus 1 Resulted 01/22/20 03:15 Blood Blood Culture - Preliminary Gram Negative Bacillus 1 Resulted 01/22/20 14:40 Sputum Gram Stain - Final Resulted 01/22/20 14:40 Sputum Culture - Preliminary Gram Negative Bacillus 1 Resulted 01/22/20 14:40 Nasopharynx Coronavirus COVID-19 PCR (GERMÁN) - Final Complete 01/22/20 04:10 Nasopharynx SARS-CoV-2 RdRp Gene Assay - Final Complete 01/22/20 03:30 Urine,Clean Catch Urine Culture - Preliminary Gram Negative Bacillus 1 Resulted 01/22/20 04:00 Rectum Received Kenji Shane MD Jan 24, 2020 14:33
--- NOTE | 2020-01-24 14:55 | General Progress Note ---
Assessment/Plan Problem List: (1) Severe anemia ICD Codes: D64.9 - Anemia, unspecified SNOMED: 687598704 (2) Encephalopathy acute ICD Codes: G93.40 - Encephalopathy, unspecified SNOMED: 07444325, 533982334 (3) ATN (acute tubular necrosis) ICD Codes: N17.0 - Acute kidney failure with tubular necrosis SNOMED: 23135345 (4) Feeding by G-tube ICD Codes: Z93.1 - Gastrostomy status SNOMED: 972630049, 040808797, 310769952 (5) Pneumonia ICD Codes: J18.9 - Pneumonia, unspecified organism SNOMED: 490482641 (6) Chronic respiratory failure ICD Codes: J96.10 - Chronic respiratory failure, unspecified whether with hypoxia or hypercapnia SNOMED: 30871444 Assessment/Plan: GT changed at the bedside with 20 Fr balloon type GT flushed well ok to use GT fu H&H prn blood transfusion abx per ID respiratory care icu care will fu Subjective ROS Limited/Unobtainable: No Allergies: Coded Allergies: NSAIDS (NON-STEROIDAL ANTI-INFLAMMA (Unverified Allergy, Unknown, 11/27/18) PIPERACILLIN (Unverified Allergy, Unknown, 01/25/19) tolerates carbapenem TAZOBACTAM (Unverified Allergy, Unknown, 11/27/18) Uncoded Allergies: NSAID (Allergy, Unknown, 09/14/18) Objective Last 24 Hour Vital Signs Date Time Temp Pulse Resp B/P (MAP) Pulse Ox O2 Delivery O2 Flow Rate FiO2 01/24/20 14:00 89 32 95/63 (74) 100 01/24/20 13:31 99 29 99/63 (75) 100 01/24/20 13:00 91 31 88/44 (59) 97 01/24/20 12:00 93 01/24/20 12:00 93 32 99/49 (66) 97 01/24/20 11:30 95 23 102/49 (66) 99 01/24/20 11:00 93 30 98/53 (68) 100 01/24/20 10:56 95 25 30 01/24/20 10:30 91 30 102/53 (69) 100 01/24/20 10:00 94 29 97/52 (67) 99 01/24/20 09:00 93 20 110/57 (74) 96 01/24/20 08:56 93 01/24/20 08:30 93 27 98 01/24/20 08:00 99.5 95 24 108/56 (73) 98 01/24/20 08:00 98 01/24/20 08:00 99.5 94 21 97/52 (67) 99 01/24/20 08:00 Mechanical Ventilator 01/24/20 07:30 94 21 106/58 (74) 99 01/24/20 07:30 97 24 98 01/24/20 07:20 30 01/24/20 07:13 100.0 01/24/20 07:07 93 33 40 01/24/20 07:00 94 14 105/58 (74) 99 01/24/20 07:00 94 20 105/58 (74) 97 01/24/20 06:30 86 26 01/24/20 06:24 110/52 01/24/20 06:02 92 28 105/80 (88) 100 01/24/20 05:30 93 29 105/50 (68) 100 01/24/20 05:00 97 27 104/56 (72) 100 01/24/20 04:30 99.5 95 32 100/50 (67) 97 01/24/20 04:00 93 01/24/20 04:00 Mechanical Ventilator 01/24/20 04:00 96 30 95/47 (63) 100 01/24/20 03:30 97 31 105/46 (65) 100 01/24/20 03:12 95 34 40 01/24/20 03:00 96 21 106/55 (72) 100 01/24/20 02:30 98 19 100/65 (77) 100 01/24/20 02:00 96 32 110/48 (68) 99 01/24/20 01:30 97 32 110/48 (68) 99 01/24/20 01:00 95 36 96/49 (65) 99 01/24/20 00:30 99 31 99 01/24/20 00:30 99 31 96/49 (65) 99 01/24/20 00:06 98 29 112/44 (66) 100 01/24/20 00:00 98.5 98 32 100 01/24/20 00:00 98.5 98 32 112/45 (67) 100 7/21/20 00:00 98 32 100 720 00:00 Mechanical Ventilator 01/24/20 00:00 98.5 98 32 100 720 00:00 98 72020 23:32 94 35 40 7/20/20 23:30 96 28 100/58 (72) 100 720/20 23:15 102/36 7/2020 23:00 98 33 102/50 (67) 100 7/2020 22:30 98 33 102/50 (67) 100 72020 22:00 97 34 105/50 (68) 97 720/20 21:30 97 33 93/45 (61) 97 720 21:00 97 32 104/45 (64) 97 720 20:30 100 31 101/46 (64) 97 72020 20:00 104 7/20 20:00 98.8 102 30 121/52 (75) 99 20 20:00 Mechanical Ventilator 01/23/20 19:52 103 35 40 7 19:30 86 27 112/93 (99) 94 720 19:00 98 35 105/46 (65) 97 2020 18:35 96 32 114/51 (72) 97 20 18:00 99.9 100 32 121/50 (73) 99 20/20 17:30 100.8 126 35 120/61 (80) 100 20 17:00 126 35 90/55 (67) 98 20 16:30 132 33 107/62 (77) 98 20 16:00 Mechanical Ventilator 01/23/20 16:00 127 33 114/60 (78) 98 20 15:30 135 32 96/50 (65) 100 20 15:16 129 20 15:05 138 20 15:00 139 32 100/61 (74) 100 Intake and Output 20 720 19:00 07:00 Intake Total 1277.5 ml 1672 ml Output Total 130 ml 270 ml Balance 1147.5 ml 1402 ml Intake IV Total 1277.5 ml 1672 ml Output Urine Total 130 ml 270 ml # Bowel Movements 1 Laboratory Tests 7/20/20 18:28: Random Amikacin Level 13.3 01/24/20 03:40: White Blood Count 25.2*H, Red Blood Count 2.70L, Hemoglobin 8.2L, Hematocrit 26.4L, Mean Corpuscular Volume 98, Mean Corpuscular Hemoglobin 30.3, Mean Corpuscular Hemoglobin Concent 31.0L, Red Cell Distribution Width 15.8H, Platelet Count 106L, Mean Platelet Volume 7.8, Neutrophils (%) (Auto) , Lymphocytes (%) (Auto) , Monocytes (%) (Auto) , Eosinophils (%) (Auto) , Basophils (%) (Auto) , Differential Total Cells Counted 100, Neutrophils % ( Manual) 84H, Lymphocytes % (Manual) 5L, Monocytes % (Manual) 1, Eosinophils % ( Manual) 0, Basophils % (Manual) 0, Band Neutrophils 10H, Platelet Estimate DecreasedL, Platelet Morphology , Clumped Platelets 1+, Hypochromasia 1+, Anisocytosis 1+, Sodium Level 147H, Potassium Level 6.1*H, Chloride Level 118H, Carbon Dioxide Level 19L, Anion Gap 10, Blood Urea Nitrogen 165H, Creatinine 3.7H, Estimat Glomerular Filtration Rate 15.8, Glucose Level 75, Calcium Level 8.4L, Phosphorus Level 3.0, Magnesium Level 2.3, Total Bilirubin 0.4, Aspartate Amino Transf (AST/SGOT) 39H, Alanine Aminotransferase (ALT/SGPT) 30, Alkaline Phosphatase 103, Total Protein 6.9, Albumin 1.0L, Globulin 5.9, Albumin/ Globulin Ratio 0.2L, Random Vancomycin Level 25.1 01/24/20 07:07: Arterial Blood pH 7.309L, Arterial Blood Partial Pressure CO2 32.0L, Arterial Blood Partial Pressure O2 378.5H, Arterial Blood HCO3 15.7*L, Arterial Blood Oxygen Saturation 99.5, Arterial Blood Base Excess -9.6*L, Behzad Test Positive 01/24/20 09:05: D-Dimer 12.97H Height (Feet): 5 Height (Inches): 5.00 Weight (Pounds): 145 General Appearance: no apparent distress EENT: normal ENT inspection Neck: supple Cardiovascular: normal rate Respiratory/Chest: decreased breath sounds Abdomen: normal bowel sounds, non tender, soft Extremities: non-tender Norm Thurston MD Jan 24, 2020 14:55
[2020-01-24] MEDS ORDERED: Sodium Polystyrene Sulfonate 15gm Powder ORAL SCH (18:00)
[2020-01-24] MEDS: Sodium Citrate 30ml GT SCH ×2 (18:10→23:42)
--- NOTE | 2020-01-24 19:19 | Internal Med Progress Note ---
Subjective Date of Service: Jan 24, 2020 Physician Name BaileeBunny Attending Physician Danis Wolfe MD Current Medications Medications (Trade) Dose Ordered Sig/Margarette Route PRN Reason Start Time Stop Time Status Last Admin Dose Admin Acetaminophen (Tylenol) 650 mg Q4H PRN ORAL fever 01/22/20 08:15 02/21/20 08:14 01/24/20 06:44 Albuterol/ Ipratropium (Albuterol/ Ipratropium) 3 ml Q4H PRN HHN Shortness of Breath 01/22/20 08:15 01/27/20 08:14 Amikacin Protocol (Amikacin pharmacy to dose) 1 ea DAILY PRN MISC . 01/22/20 13:45 02/21/20 13:44 Amikacin Sulfate 250 mg/Dextrose 111 ml @ 111 mls/hr Q36H IV 01/24/20 10:00 01/31/20 09:59 01/24/20 10:24 Dextrose/Sodium Chloride 1,000 ml @ 125 mls/hr Q8H IV 01/22/20 11:30 02/21/20 11:29 01/24/20 11:30 Digoxin (Lanoxin) 0.125 mg DAILY IVP 01/24/20 09:00 04/23/20 08:59 01/24/20 08:56 Heparin Sodium (Porcine) (Heparin 5000 units/ml) 5,000 units EVERY 12 HOURS SUBQ 01/22/20 21:00 03/07/20 20:59 01/23/20 21:03 Lorazepam (Ativan 2mg/ml 1ml) 2 mg Q2H PRN IV For Anxiety 01/22/20 08:15 01/29/20 08:14 Meropenem 500 mg/ Sodium Chloride 55 ml @ 110 mls/hr Q12H IVPB 01/22/20 14:00 01/27/20 13:59 01/24/20 14:28 Midodrine (Pro-Amatine) 10 mg Q8HR GT 01/24/20 14:00 04/23/20 13:59 01/24/20 14:27 Morphine Sulfate (Morphine Sulfate) 4 mg Q4H PRN IVP Severe Pain (Pain Scale 7-10) 01/22/20 08:15 01/29/20 08:14 Norepinephrine Bitartrate 250 ml @ 0 mls/hr Q24H IV 01/22/20 15:00 04/21/20 14:59 01/24/20 16:14 Ondansetron HCl (Zofran) 4 mg Q6H PRN IVP Nausea & Vomiting 01/22/20 08:15 02/21/20 08:14 Pantoprazole (Protonix) 40 mg Q12HR IV 01/22/20 09:30 02/21/20 09:29 01/24/20 08:55 Polyethylene Glycol (Miralax) 17 gm DAILYPRN PRN ORAL Constipation 01/22/20 08:15 02/21/20 08:14 Sodium Citrate (Bicitra) 30 ml EVERY 6 HOURS GT 01/24/20 18:00 02/23/20 17:59 01/24/20 18:10 Allergies: Coded Allergies: NSAIDS (NON-STEROIDAL ANTI-INFLAMMA (Unverified Allergy, Unknown, 11/27/18) PIPERACILLIN (Unverified Allergy, Unknown, 01/25/19) tolerates carbapenem TAZOBACTAM (Unverified Allergy, Unknown, 11/27/18) Uncoded Allergies: NSAID (Allergy, Unknown, 09/14/18) ROS Limited/Unobtainable: Yes Subjective 84 YO M admitted with respiratory failure. Now pneumonia and hypotension. intubated and sedated. Cover for Int Yonis-DR Wolfe. ICU Objective Last Vital Signs Date Time Temp Pulse Resp B/P (MAP) Pulse Ox O2 Delivery O2 Flow Rate FiO2 01/24/20 19:07 103 27 109/71 (84) 92 01/24/20 16:00 Mechanical Ventilator 01/24/20 16:00 99.6 01/24/20 16:00 55.0 01/24/20 15:01 30 Laboratory Tests Test 01/24/20 03:40 01/24/20 07:07 01/24/20 09:05 White Blood Count 25.2 K/UL (4.8-10.8) *H Red Blood Count 2.70 M/UL (4.70-6.10) L Hemoglobin 8.2 G/DL (14.2-18.0) L Hematocrit 26.4 % (42.0-52.0) L Mean Corpuscular Volume 98 FL (80-99) Mean Corpuscular Hemoglobin 30.3 PG (27.0-31.0) Mean Corpuscular Hemoglobin Concent 31.0 G/DL (32.0-36.0) L Red Cell Distribution Width 15.8 % (11.6-14.8) H Platelet Count 106 K/UL (150-450) L Mean Platelet Volume 7.8 FL (6.5-10.1) Neutrophils (%) (Auto) % (45.0-75.0) Lymphocytes (%) (Auto) % (20.0-45.0) Monocytes (%) (Auto) % (1.0-10.0) Eosinophils (%) (Auto) % (0.0-3.0) Basophils (%) (Auto) % (0.0-2.0) Differential Total Cells Counted 100 Neutrophils % (Manual) 84 % (45-75) H Lymphocytes % (Manual) 5 % (20-45) L Monocytes % (Manual) 1 % (1-10) Eosinophils % (Manual) 0 % (0-3) Basophils % (Manual) 0 % (0-2) Band Neutrophils 10 % (0-8) H Platelet Estimate Decreased L Platelet Morphology Clumped Platelets 1+ Hypochromasia 1+ Anisocytosis 1+ Sodium Level 147 MMOL/L (136-145) H Potassium Level 6.1 MMOL/L (3.5-5.1) *H Chloride Level 118 MMOL/L (98-107) H Carbon Dioxide Level 19 MMOL/L (21-32) L Anion Gap 10 mmol/L (5-15) Blood Urea Nitrogen 165 mg/dL (7-18) H Creatinine 3.7 MG/DL (0.55-1.30) H Estimat Glomerular Filtration Rate 15.8 mL/min (>60) Glucose Level 75 MG/DL (74-106) Calcium Level 8.4 MG/DL (8.5-10.1) L Phosphorus Level 3.0 MG/DL (2.5-4.9) Magnesium Level 2.3 MG/DL (1.8-2.4) Total Bilirubin 0.4 MG/DL (0.2-1.0) Aspartate Amino Transf (AST/SGOT) 39 U/L (15-37) H Alanine Aminotransferase (ALT/SGPT) 30 U/L (12-78) Alkaline Phosphatase 103 U/L (46-116) Total Protein 6.9 G/DL (6.4-8.2) Albumin 1.0 G/DL (3.4-5.0) L Globulin 5.9 g/dL Albumin/Globulin Ratio 0.2 (1.0-2.7) L Random Vancomycin Level 25.1 ug/mL Arterial Blood pH 7.309 (7.350-7.450) Arterial Blood Partial Pressure CO2 32.0 mmHg (35.0-45.0) L Arterial Blood Partial Pressure O2 378.5 mmHg (75.0-100.0) H Arterial Blood HCO3 15.7 mmol/L (22.0-26.0) *L Arterial Blood Oxygen Saturation 99.5 % (95-100) Arterial Blood Base Excess -9.6 (-2-2) *L Behzad Test Positive D-Dimer 12.97 mg/L FEU (0.00-0.49) H Microbiology Date/Time Source Procedure Growth Status 01/22/20 09:40 Blood Blood Culture - Preliminary Gram Negative Bacillus 1 Resulted 01/22/20 09:30 Blood Blood Culture - Preliminary Gram Negative Bacillus 1 Resulted 01/22/20 03:30 Blood Blood Culture - Preliminary Gram Negative Bacillus 1 Resulted 01/22/20 03:15 Blood Blood Culture - Preliminary Gram Negative Bacillus 1 Resulted 01/22/20 14:40 Sputum Gram Stain - Final Resulted 01/22/20 14:40 Sputum Culture - Preliminary Gram Negative Bacillus 1 Resulted 01/22/20 14:40 Nasopharynx Coronavirus COVID-19 PCR (GERMÁN) - Final Complete 01/22/20 04:10 Nasopharynx SARS-CoV-2 RdRp Gene Assay - Final Complete 01/22/20 03:30 Urine,Clean Catch Urine Culture - Preliminary Gram Negative Bacillus 1 Resulted 01/22/20 04:00 Rectum Received Intake and Output 01/23/20 01/24/20 19:00 07:00 Intake Total 1277.5 ml 1672 ml Output Total 130 ml 270 ml Balance 1147.5 ml 1402 ml Intake IV Total 1277.5 ml 1672 ml Output Urine Total 130 ml 270 ml # Bowel Movements 1 Objective PHYSICAL EXAMINATION: GENERAL: The patient is contracted, thin-appearing male, in no apparent distress. HEENT: Eyes, pupils are equal and responsive to light and accommodation. Extraocular movements are intact. NECK: Supple without lymphadenopathy. There is trachea midline noted. There is no erythema about the trachea. CHEST: Mech vent; Decreased breath sounds at bilateral bases with expiratory wheezes, otherwise without rales. CARDIOVASCULAR EXAM: Tachycardic, regular rate. S1, S2 normal without murmurs, rubs, or gallops. ABDOMEN: Soft, nontender, and nondistended. Positive bowel sounds. No evidence of hepatosplenomegaly. Currently, no rebound or guarding noted. EXTREMITIES: Negative for clubbing, cyanosis, or edema. RECTAL/GENITAL: Not performed. NEUROLOGIC: Unable to assess. Assessment/Plan Assessment/Plan ASSESSMENT: This is an 84-year-old male. 1. Hypoxemic respiratory failure. 2. Pneumonia. 3. Dysphagia. 4. Functional quadriplegia. 5. Alzheimer's dementia. 6. Eigtz-ju-rpmiiur renal failure. TREATMENT: 1. Hypoxemic respiratory failure/pneumonia. A Pulmonary consultation has been obtained with Dr. Dennis Woodall. The patient is currently intubated in the intensive care unit. The patient has been started empirically on amikacin and meropenem. A rapid COVID-19 test was reported as negative. 2. History of dysphagia. The patient is status post PEG placement. 3. Functional quadriplegia. 4. Alzheimer's dementia. 5. Shqrs-aw-bovxmow renal failure. A Nephrology consultation has been obtained with Dr. Ronnie Guevara. Bunny Morocho MD Jan 24, 2020 19:19
[2020-01-25] VITALS (53 sets, daily range): BP systolic 48–140; BP diastolic 27–80
[2020-01-25] MEDS: Meropenem 500 MG in NS 55 ML IVPB SCH ×2 (02:04→13:58)
[2020-01-25] MEDS: D5 1/2NS 1,000 ML IV SCH (04:33)
[2020-01-25] MEDS: Norepinephrine 4mg/NS Premix 250 ML IV SCH ×2 (05:21→12:29)
[2020-01-25] MEDS: Midodrine 10mg tab GT SCH ×3 (05:29→19:42)
[2020-01-25] MEDS: Sodium Citrate 30ml GT SCH ×4 (05:29→23:46)
[2020-01-25 05:35] LABS: HEMATOCRIT 30.1 % (42.0-52.0); HEMOGLOBIN 9.6 G/DL (14.2-18.0); MEAN CORPUSCULAR VOLUME 97 FL (80-99); RED BLOOD COUNT 3.09 M/UL (4.70-6.10); RED CELL DISTRIBUTION WIDTH 15.8 % (11.6-14.8)
[2020-01-25 06:06] LABS: WHITE BLOOD COUNT 27.2 K/UL (4.8-10.8)
[2020-01-25 06:30] LABS: ALANINE AMINOTRANSFERASE 31 U/L (12-78); ALBUMIN/GLOBULIN RATIO 0.2 (1.0-2.7); ALKALINE PHOSPHATASE 106 U/L (46-116); ANION GAP 16 mmol/L (5-15); ASPARTATE AMINO TRANSFERASE 43 U/L (15-37); BILIRUBIN,TOTAL 0.5 MG/DL (0.2-1.0); BLOOD UREA NITROGEN 160 mg/dL (7-18); CARBON DIOXIDE 15 MMOL/L (21-32); CHLORIDE 111 MMOL/L (98-107); PHOSPHORUS 4.3 MG/DL (2.5-4.9); SODIUM 143 MMOL/L (136-145)
[2020-01-25 06:37] LABS: POTASSIUM 6.7 MMOL/L (3.5-5.1)
[2020-01-25] MEDS ORDERED: Sodium Polystyrene Sulfonate 15gm Powder GT SCH (07:04)
[2020-01-25] MEDS ORDERED: Sodium Bicarbonate 50ml Carp ONE (08:05)
[2020-01-25] MEDS: Pantoprazole Inj IV SCH ×2 (08:14→19:42)
[2020-01-25] MEDS: Heparin 5000 units/ml inj SUBQ SCH ×2 (08:15→19:42)
[2020-01-25] MEDS: Digoxin 0.5mg/2ml Inj IVP SCH (08:15)
[2020-01-25] MEDS: Sodium Bicarbonate 100 ML in D5 1/2NS 1,000 ML IV SCH ×2 (09:13→19:42)
--- NOTE | 2020-01-25 09:49 | Infectious Diseases Prog Note ---
Assessment/Plan Assessment: Septic Shock High grade Gram neg bacteremia- from UTI and obstructive uropathy -01/21 BCx Citrobacter koseri (S Cefepime, Meropenem) x8; 01/22 Bcx p Staph bacteremia -01/21 08/13 Staph sp Pneumonia- COVID neg x2 (on same day) Acute on chronic respiratory failure - SP trach/vent dependant -01/23 CXR: Again demonstrated is interstitial disease throughout the left lung as well as right perihilar and basilar interstitial opacities. There is probably a small right pleural effusion. -sp cx P , mirabilis (S Zosyn, Meropenem) -01/21 rapid COVID neg, COVID NAAT neg Low grade fever, improving Severe leukocytosis; overall improved UTI -u/a wbc 10-15, nit neg, leuk +3; ucx >100k GNR Hypernatremia Hyperkalemia FRIDA metabolic acidosis -Renal US: Limited exam, as described, poor visualization of the left kidney. Right and probably left hydronephrosis. Probable bladder mass. 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 UTI and bacteremia 11/2018 COPD Dementia non verbal functional quadriplegia chronic resp failure s/p trach/vent dependent SNF resident ([facility]) Plan: -Daptomycin #1 (abx d #4) for staph bacteremia -monitor CPK -empiric Amikacin #4 and Meropenem #4 pending cultures -hx of MDRO -01/23 SP IV Vancomycin #3 -01/21 Flagyl x1, Levaquin x 1 -f/u cx -Monitor CBC/CMP, temperatures -COVID19 neg x2 (PCR and rapid); will keep isolation for now until afebrile > 72hrs -ICU/trach/PEG care -aspiration precautions -f/u repeat Bcx x2 -consider Uro eval -poor prognosis Thank you for consulting [facility]. Will continue to follow along with you. Katie jain RN. Subjective Allergies: Coded Allergies: NSAIDS (NON-STEROIDAL ANTI-INFLAMMA (Unverified Allergy, Unknown, 11/27/18) PIPERACILLIN (Unverified Allergy, Unknown, 01/25/19) tolerates carbapenem TAZOBACTAM (Unverified Allergy, Unknown, 11/27/18) Uncoded Allergies: NSAID (Allergy, Unknown, 09/14/18) afebrile >24hrs Fio2 30% wbc overall improved levophed at 10 repeat Bcx p Objective Last 24 Hour Vital Signs Date Time Temp Pulse Resp B/P (MAP) Pulse Ox O2 Delivery O2 Flow Rate FiO2 01/25/20 08:15 97 01/25/20 07:30 97 30 100/53 (69) 97 01/25/20 07:28 91 27 30 01/25/20 07:00 30.0 01/25/20 07:00 96 30 109/62 (78) 96 01/25/20 06:30 94 26 01/25/20 06:00 99.4 95 28 108/49 (68) 97 01/25/20 05:30 86 29 104/56 (72) 95 01/25/20 05:21 103/46 01/25/20 05:00 96 30 103/53 (70) 97 01/25/20 04:30 97 30 100/45 (63) 98 01/25/20 04:00 98.6 97 31 96/45 (62) 97 01/25/20 04:00 96 01/25/20 04:00 55.0 01/25/20 04:00 Mechanical Ventilator 01/25/20 03:30 98 31 102/65 (77) 96 01/25/20 03:11 97 29 30 01/25/20 03:00 95 31 101/70 (80) 97 01/25/20 02:30 96 30 109/46 (67) 96 01/25/20 02:00 99 31 111/51 (71) 96 01/25/20 01:30 99 29 96/46 (63) 96 01/25/20 01:00 98 30 96/50 (65) 96 01/25/20 00:30 95 29 98/50 (66) 93 01/25/20 00:30 95 29 93 01/25/20 00:00 Mechanical Ventilator 01/25/20 00:00 55.0 01/25/20 00:00 98.8 91 27 124/65 (84) 96 01/25/20 00:00 94 01/25/20 00:00 91 27 124/65 (84) 96 01/24/20 23:30 93 27 97/50 (66) 97 01/24/20 23:19 91 24 30 7 23:00 92 26 105/48 (67) 98 20 22:37 65/42 20 22:30 79 30 100/50 (67) 87 72120 22:00 98.5 82 31 67/42 (50) 92 20 21:30 99 31 98/54 (69) 95 01/24/20 21:00 98 31 91/58 (69) 96 20 20:30 101 32 100/50 (67) 95 20 20:00 90 01/24/20 20:00 Mechanical Ventilator 01/24/20 20:00 90 01/24/20 20:00 55.0 01/24/20 20:00 101 32 107/49 (68) 93 01/24/20 19:32 100 30 30 01/24/20 19:30 99.0 102 32 100/46 (64) 94 01/24/20 19:07 103 27 109/71 (84) 92 01/24/20 18:30 102 27 113/66 (82) 92 01/24/20 18:00 103 30 101/51 (68) 97 01/24/20 17:30 96 25 109/61 (77) 97 01/24/20 17:00 100 27 106/61 (76) 97 01/24/20 16:30 100 28 116/56 (76) 98 01/24/20 16:14 97/54 01/24/20 16:00 Mechanical Ventilator 01/24/20 16:00 99 01/24/20 16:00 99.6 99 24 116/56 (76) 98 01/24/20 16:00 55.0 01/24/20 15:01 89 30 30 01/24/20 15:00 96 24 97/54 (68) 98 01/24/20 14:00 89 32 95/63 (74) 100 01/24/20 13:31 99 29 99/63 (75) 100 01/24/20 13:00 91 31 88/44 (59) 97 01/24/20 12:00 93 01/24/20 12:00 98.9 01/24/20 12:00 55.0 01/24/20 12:00 Mechanical Ventilator 01/24/20 12:00 93 32 99/49 (66) 97 01/24/20 11:30 95 23 102/49 (66) 99 01/24/20 11:00 93 30 98/53 (68) 100 01/24/20 10:56 95 25 30 01/24/20 10:30 91 30 102/53 (69) 100 01/24/20 10:00 94 29 97/52 (67) 99 Height (Feet): 5 Height (Inches): 5.00 Weight (Pounds): 150 General Appearance: lethargic, Chronically Ill Head: normocephalic ENT: dry mucus membranes, trach to vent Neck: limited range of motion, tracheotomy Respiratory: decreased breath sounds Cardiovascular #1: Tachycardic Gastrointestinal: non tender, soft, GT tube in place Microbiology Date/Time Source Procedure Growth Status 01/22/20 14:40 Sputum Gram Stain - Final Resulted 01/22/20 14:40 Sputum Culture - Preliminary Proteus Mirabilis Resulted 01/22/20 14:40 Nasopharynx Coronavirus COVID-19 PCR (GERMÁN) - Final Complete Laboratory Tests Test 01/25/20 03:05 White Blood Count 27.2 K/UL (4.8-10.8) *H Red Blood Count 3.09 M/UL (4.70-6.10) L Hemoglobin 9.6 G/DL (14.2-18.0) L Hematocrit 30.1 % (42.0-52.0) L Mean Corpuscular Volume 97 FL (80-99) Mean Corpuscular Hemoglobin 31.0 PG (27.0-31.0) Mean Corpuscular Hemoglobin Concent 31.8 G/DL (32.0-36.0) L Red Cell Distribution Width 15.8 % (11.6-14.8) H Platelet Count 30 K/UL (150-450) #L Mean Platelet Volume 14.2 FL (6.5-10.1) H Neutrophils (%) (Auto) % (45.0-75.0) Lymphocytes (%) (Auto) % (20.0-45.0) Monocytes (%) (Auto) % (1.0-10.0) Eosinophils (%) (Auto) % (0.0-3.0) Basophils (%) (Auto) % (0.0-2.0) Differential Total Cells Counted 100 Neutrophils % (Manual) 96 % (45-75) H Lymphocytes % (Manual) 2 % (20-45) L Monocytes % (Manual) 2 % (1-10) Eosinophils % (Manual) 0 % (0-3) Basophils % (Manual) 0 % (0-2) Band Neutrophils 0 % (0-8) Platelet Estimate Pending Platelet Morphology Normal Clumped Platelets 3+ Hypochromasia 1+ Anisocytosis 1+ Sodium Level 143 MMOL/L (136-145) Potassium Level 6.7 MMOL/L (3.5-5.1) *H Chloride Level 111 MMOL/L (98-107) H Carbon Dioxide Level 15 MMOL/L (21-32) L Anion Gap 16 mmol/L (5-15) H Blood Urea Nitrogen 160 mg/dL (7-18) H Creatinine 4.0 MG/DL (0.55-1.30) H Estimat Glomerular Filtration Rate 14.4 mL/min (>60) Glucose Level 105 MG/DL (74-106) Calcium Level 8.0 MG/DL (8.5-10.1) L Phosphorus Level 4.3 MG/DL (2.5-4.9) Magnesium Level 2.1 MG/DL (1.8-2.4) Total Bilirubin 0.5 MG/DL (0.2-1.0) Aspartate Amino Transf (AST/SGOT) 43 U/L (15-37) H Alanine Aminotransferase (ALT/SGPT) 31 U/L (12-78) Alkaline Phosphatase 106 U/L (46-116) C-Reactive Protein, Quantitative 23.3 mg/dL (0.00-0.90) H Pro-B-Type Natriuretic Peptide 03496 pg/mL (0-125) H Total Protein 7.1 G/DL (6.4-8.2) Albumin 1.0 G/DL (3.4-5.0) L Globulin 6.1 g/dL Albumin/Globulin Ratio 0.2 (1.0-2.7) L Digoxin Level 2.0 NG/ML (0.5-2.0) Current Medications Medications (Trade) Dose Ordered Sig/Margarette Route PRN Reason Start Time Stop Time Status Last Admin Dose Admin Acetaminophen (Tylenol) 650 mg Q4H PRN ORAL fever 01/22/20 08:15 02/21/20 08:14 01/24/20 06:44 Albuterol/ Ipratropium (Albuterol/ Ipratropium) 3 ml Q4H PRN HHN Shortness of Breath 01/22/20 08:15 01/27/20 08:14 Amikacin Protocol (Amikacin pharmacy to dose) 1 ea DAILY PRN MISC . 01/22/20 13:45 02/21/20 13:44 Amikacin Sulfate 250 mg/Dextrose 111 ml @ 111 mls/hr Q36H IV 01/24/20 10:00 01/31/20 09:59 01/24/20 10:24 Digoxin (Lanoxin) 0.125 mg DAILY IVP 01/24/20 09:00 04/23/20 08:59 01/25/20 08:15 Heparin Sodium (Porcine) (Heparin 5000 units/ml) 5,000 units EVERY 12 HOURS SUBQ 01/22/20 21:00 03/07/20 20:59 01/24/20 20:56 Lorazepam (Ativan 2mg/ml 1ml) 2 mg Q2H PRN IV For Anxiety 01/22/20 08:15 01/29/20 08:14 Meropenem 500 mg/ Sodium Chloride 55 ml @ 110 mls/hr Q12H IVPB 01/22/20 14:00 01/27/20 13:59 01/25/20 02:04 Midodrine (Pro-Amatine) 10 mg Q8HR GT 01/24/20 14:00 04/23/20 13:59 01/25/20 05:29 Morphine Sulfate (Morphine Sulfate) 4 mg Q4H PRN IVP Severe Pain (Pain Scale 7-10) 01/22/20 08:15 01/29/20 08:14 Norepinephrine Bitartrate 250 ml @ 0 mls/hr Q24H IV 01/22/20 15:00 04/21/20 14:59 01/25/20 05:21 Ondansetron HCl (Zofran) 4 mg Q6H PRN IVP Nausea & Vomiting 01/22/20 08:15 02/21/20 08:14 Pantoprazole (Protonix) 40 mg Q12HR IV 01/22/20 09:30 02/21/20 09:29 01/25/20 08:14 Polyethylene Glycol (Miralax) 17 gm DAILYPRN PRN ORAL Constipation 01/22/20 08:15 02/21/20 08:14 Sodium Bicarbonate 100 ml/Dextrose/ Sodium Chloride 1,100 ml @ 100 mls/hr Q11H IV 01/25/20 09:00 02/24/20 08:59 01/25/20 09:13 Sodium Citrate (Bicitra) 30 ml EVERY 6 HOURS GT 01/24/20 18:00 02/23/20 17:59 01/25/20 05:29 Lilly Dorantes M.D. Jan 25, 2020 09:49
--- NOTE | 2020-01-25 10:45 | General Progress Note ---
Assessment/Plan Problem List: (1) Severe anemia ICD Codes: D64.9 - Anemia, unspecified SNOMED: 984678224 (2) Encephalopathy acute ICD Codes: G93.40 - Encephalopathy, unspecified SNOMED: 27767619, 665997790 (3) ATN (acute tubular necrosis) ICD Codes: N17.0 - Acute kidney failure with tubular necrosis SNOMED: 48809308 (4) Feeding by G-tube ICD Codes: Z93.1 - Gastrostomy status SNOMED: 886285231, 544098817, 567096301 (5) Pneumonia ICD Codes: J18.9 - Pneumonia, unspecified organism SNOMED: 112252981 (6) Chronic respiratory failure ICD Codes: J96.10 - Chronic respiratory failure, unspecified whether with hypoxia or hypercapnia SNOMED: 26008993 Assessment/Plan: GT changed at the bedside with 20 Fr balloon type GT yesterday flushed well fu H&H prn blood transfusion abx per ID respiratory care icu care start GTF will fu Subjective ROS Limited/Unobtainable: No Allergies: Coded Allergies: NSAIDS (NON-STEROIDAL ANTI-INFLAMMA (Unverified Allergy, Unknown, 11/27/18) PIPERACILLIN (Unverified Allergy, Unknown, 01/25/19) tolerates carbapenem TAZOBACTAM (Unverified Allergy, Unknown, 11/27/18) Uncoded Allergies: NSAID (Allergy, Unknown, 09/14/18) Objective Last 24 Hour Vital Signs Date Time Temp Pulse Resp B/P (MAP) Pulse Ox O2 Delivery O2 Flow Rate FiO2 01/25/20 10:00 97 32 107/64 (78) 97 01/25/20 09:30 95 30 107/64 (78) 97 01/25/20 09:00 96 32 87/60 (69) 98 01/25/20 08:30 100 33 107/55 (72) 96 01/25/20 08:15 97 01/25/20 08:00 Mechanical Ventilator 01/25/20 08:00 98.1 98 30 94/57 (69) 96 01/25/20 07:30 97 30 100/53 (69) 97 01/25/20 07:28 91 27 30 01/25/20 07:00 30.0 01/25/20 07:00 96 30 109/62 (78) 96 01/25/20 06:30 94 26 01/25/20 06:00 99.4 95 28 108/49 (68) 97 01/25/20 05:30 86 29 104/56 (72) 95 01/25/20 05:21 103/46 01/25/20 05:00 96 30 103/53 (70) 97 01/25/20 04:30 97 30 100/45 (63) 98 01/25/20 04:00 98.6 97 31 96/45 (62) 97 01/25/20 04:00 96 01/25/20 04:00 55.0 01/25/20 04:00 Mechanical Ventilator 01/25/20 03:30 98 31 102/65 (77) 96 01/25/20 03:11 97 29 30 01/25/20 03:00 95 31 101/70 (80) 97 01/25/20 02:30 96 30 109/46 (67) 96 01/25/20 02:00 99 31 111/51 (71) 96 01/25/20 01:30 99 29 96/46 (63) 96 01/25/20 01:00 98 30 96/50 (65) 96 01/25/20 00:30 95 29 98/50 (66) 93 01/25/20 00:30 95 29 93 01/25/20 00:00 Mechanical Ventilator 01/25/20 00:00 55.0 01/25/20 00:00 98.8 91 27 124/65 (84) 96 01/25/20 00:00 94 01/25/20 00:00 91 27 124/65 (84) 96 01/24/20 23:30 93 27 97/50 (66) 97 01/24/20 23:19 91 24 30 01/24/20 23:00 92 26 105/48 (67) 98 20 22:37 65/42 01/24/20 22:30 79 30 100/50 (67) 87 01/24/20 22:00 98.5 82 31 67/42 (50) 92 01/24/20 21:30 99 31 98/54 (69) 95 01/24/20 21:00 98 31 91/58 (69) 96 01/24/20 20:30 101 32 100/50 (67) 95 7/21/20 20:00 90 01/24/20 20:00 Mechanical Ventilator 01/24/20 20:00 90 01/24/20 20:00 55.0 01/24/20 20:00 101 32 107/49 (68) 93 01/24/20 19:32 100 30 30 01/24/20 19:30 99.0 102 32 100/46 (64) 94 01/24/20 19:07 103 27 109/71 (84) 92 01/24/20 18:30 102 27 113/66 (82) 92 01/24/20 18:00 103 30 101/51 (68) 97 01/24/20 17:30 96 25 109/61 (77) 97 01/24/20 17:00 100 27 106/61 (76) 97 01/24/20 16:30 100 28 116/56 (76) 98 01/24/20 16:14 97/54 01/24/20 16:00 Mechanical Ventilator 01/24/20 16:00 99 01/24/20 16:00 99.6 99 24 116/56 (76) 98 01/24/20 16:00 55.0 01/24/20 15:01 89 30 30 01/24/20 15:00 96 24 97/54 (68) 98 01/24/20 14:00 89 32 95/63 (74) 100 01/24/20 13:31 99 29 99/63 (75) 100 01/24/20 13:00 91 31 88/44 (59) 97 01/24/20 12:00 93 01/24/20 12:00 98.9 01/24/20 12:00 55.0 01/24/20 12:00 Mechanical Ventilator 01/24/20 12:00 93 32 99/49 (66) 97 01/24/20 11:30 95 23 102/49 (66) 99 01/24/20 11:00 93 30 98/53 (68) 100 01/24/20 10:56 95 25 30 Intake and Output 01/24/20 01/25/20 18:59 06:59 Intake Total 3043 ml 1795.0 ml Output Total 150 ml 320 ml Balance 2893 ml 1475.0 ml Intake IV Total 2563 ml 1695.0 ml Other 480 ml 100 ml Output Urine Total 150 ml 320 ml # Bowel Movements 1 1 Laboratory Tests 01/25/20 03:05: White Blood Count 27.2*H, Red Blood Count 3.09L, Hemoglobin 9.6L, Hematocrit 30.1L, Mean Corpuscular Volume 97, Mean Corpuscular Hemoglobin 31.0, Mean Corpuscular Hemoglobin Concent 31.8L, Red Cell Distribution Width 15.8H, Platelet Count 30#L, Mean Platelet Volume 14.2H, Neutrophils (%) (Auto) , Lymphocytes (%) (Auto) , Monocytes (%) (Auto) , Eosinophils (%) (Auto) , Basophils (%) (Auto) , Differential Total Cells Counted 100, Neutrophils % ( Manual) 96H, Lymphocytes % (Manual) 2L, Monocytes % (Manual) 2, Eosinophils % ( Manual) 0, Basophils % (Manual) 0, Band Neutrophils 0, Platelet Estimate [ Pending], Platelet Morphology Normal, Clumped Platelets 3+, Hypochromasia 1+, Anisocytosis 1+, Sodium Level 143, Potassium Level 6.7*H, Chloride Level 111H, Carbon Dioxide Level 15L, Anion Gap 16H, Blood Urea Nitrogen 160H, Creatinine 4.0H, Estimat Glomerular Filtration Rate 14.4, Glucose Level 105, Calcium Level 8.0L, Phosphorus Level 4.3, Magnesium Level 2.1, Total Bilirubin 0.5, Aspartate Amino Transf (AST/SGOT) 43H, Alanine Aminotransferase (ALT/SGPT) 31, Alkaline Phosphatase 106, C-Reactive Protein, Quantitative 23.3H, Pro-B-Type Natriuretic Peptide 45417D, Total Protein 7.1, Albumin 1.0L, Globulin 6.1, Albumin/Globulin Ratio 0.2L, Digoxin Level 2.0 Height (Feet): 5 Height (Inches): 5.00 Weight (Pounds): 150 General Appearance: no apparent distress EENT: normal ENT inspection Neck: supple Cardiovascular: normal rate Respiratory/Chest: decreased breath sounds Abdomen: normal bowel sounds, non tender, soft Extremities: non-tender Norm Thurston MD Jan 25, 2020 10:45
--- NOTE | 2020-01-25 10:56 | Pulmonolgy Critical Care Note ---
Critical Care - Asmt/Plan Problems: (1) Acute on chronic respiratory failure (2) Sepsis (3) FRIDA (acute kidney injury) (4) Dehydration (5) Encephalopathy acute (6) Ventilator dependent (7) funtional quadriplegia (8) Chronic respiratory failure (9) Protein-calorie malnutrition, severe (10) Feeding by G-tube Respiratory: monitor respiratory rate, adjust FIO2, CXR Cardiac: continue pressors, continue to monitor HR/BP Renal: F/U I&O, keep IV fluid, other - change IV to bicarb +d5w Gastrointestinal: start feedings Endocrine: monitor blood sugar Hematologic: monitor H/H, transfuse if hgb<8.5 Neurologic: PRN Ativan, PRN Morphine, keep patient comfortable Affect: PRN ativan Prophylaxis: Protonix, Heparin Time Spent (Minutes): 40 Notes Reviewed: project builder, renal Discussed with: nurses, consultants, case management directorglobal project manager - Objective Last 24 Hour Vital Signs Date Time Temp Pulse Resp B/P (MAP) Pulse Ox O2 Delivery O2 Flow Rate FiO2 01/25/20 10:50 95 29 30 01/25/20 10:00 97 32 107/64 (78) 97 01/25/20 09:30 95 30 107/64 (78) 97 01/25/20 09:00 96 32 87/60 (69) 98 01/25/20 08:30 100 33 107/55 (72) 96 01/25/20 08:15 97 01/25/20 08:00 Mechanical Ventilator 01/25/20 08:00 98.1 98 30 94/57 (69) 96 01/25/20 07:30 97 30 100/53 (69) 97 01/25/20 07:28 91 27 30 01/25/20 07:00 30.0 01/25/20 07:00 96 30 109/62 (78) 96 01/25/20 06:30 94 26 01/25/20 06:00 99.4 95 28 108/49 (68) 97 01/25/20 05:30 86 29 104/56 (72) 95 01/25/20 05:21 103/46 01/25/20 05:00 96 30 103/53 (70) 97 01/25/20 04:30 97 30 100/45 (63) 98 01/25/20 04:00 98.6 97 31 96/45 (62) 97 01/25/20 04:00 96 01/25/20 04:00 55.0 01/25/20 04:00 Mechanical Ventilator 01/25/20 03:30 98 31 102/65 (77) 96 01/25/20 03:11 97 29 30 01/25/20 03:00 95 31 101/70 (80) 97 01/25/20 02:30 96 30 109/46 (67) 96 01/25/20 02:00 99 31 111/51 (71) 96 01/25/20 01:30 99 29 96/46 (63) 96 01/25/20 01:00 98 30 96/50 (65) 96 01/25/20 00:30 95 29 98/50 (66) 93 01/25/20 00:30 95 29 93 01/25/20 00:00 Mechanical Ventilator 01/25/20 00:00 55.0 01/25/20 00:00 98.8 91 27 124/65 (84) 96 01/25/20 00:00 94 01/25/20 00:00 91 27 124/65 (84) 96 01/24/20 23:30 93 27 97/50 (66) 97 01/24/20 23:19 91 24 30 01/24/20 23:00 92 26 105/48 (67) 98 01/24/20 22:37 65/42 01/24/20 22:30 79 30 100/50 (67) 87 01/24/20 22:00 98.5 82 31 67/42 (50) 92 01/24/20 21:30 99 31 98/54 (69) 95 01/24/20 21:00 98 31 91/58 (69) 96 20 20:30 101 32 100/50 (67) 95 20 20:00 90 01/24/20 20:00 Mechanical Ventilator 01/24/20 20:00 90 01/24/20 20:00 55.0 01/24/20 20:00 101 32 107/49 (68) 93 01/24/20 19:32 100 30 30 01/24/20 19:30 99.0 102 32 100/46 (64) 94 01/24/20 19:07 103 27 109/71 (84) 92 01/24/20 18:30 102 27 113/66 (82) 92 01/24/20 18:00 103 30 101/51 (68) 97 01/24/20 17:30 96 25 109/61 (77) 97 01/24/20 17:00 100 27 106/61 (76) 97 01/24/20 16:30 100 28 116/56 (76) 98 01/24/20 16:14 97/54 01/24/20 16:00 Mechanical Ventilator 01/24/20 16:00 99 01/24/20 16:00 99.6 99 24 116/56 (76) 98 01/24/20 16:00 55.0 01/24/20 15:01 89 30 30 01/24/20 15:00 96 24 97/54 (68) 98 01/24/20 14:00 89 32 95/63 (74) 100 01/24/20 13:31 99 29 99/63 (75) 100 01/24/20 13:00 91 31 88/44 (59) 97 01/24/20 12:00 93 01/24/20 12:00 98.9 01/24/20 12:00 55.0 01/24/20 12:00 Mechanical Ventilator 01/24/20 12:00 93 32 99/49 (66) 97 01/24/20 11:30 95 23 102/49 (66) 99 01/24/20 11:00 93 30 98/53 (68) 100 01/24/20 10:56 95 25 30 Status: obtunded Condition: critical HEENT: atraumatic Lungs: rales, rhonchi Heart: HR/BP stable Abdomen: soft, non-tender Extremities: no C/C/E Decubiti: location Micro: Microbiology Date/Time Source Procedure Growth Status 01/22/20 14:40 Sputum Gram Stain - Final Resulted 01/22/20 14:40 Sputum Culture - Preliminary Proteus Mirabilis Resulted 01/22/20 14:40 Nasopharynx Coronavirus COVID-19 PCR ([facility]) - Final Complete Critical Care - Subjective ROS Limited/Unobtainable: Yes Condition: critical, grave EKG Rhythm: Sinus Rhythm FI02: 30 Vent Support Breath Rate: 16 Vent Support Mode: AC Vent Tidal Volume: 500 Sputum Amount: Small PEEP: 5.0 PIP: 41 I&O: Intake and Output 01/24/20 01/25/20 19:00 07:00 Intake Total 2888 ml 1947.5 ml Output Total 130 ml 325 ml Balance 2758 ml 1622.5 ml Intake IV Total 2408 ml 1847.5 ml Other 480 ml 100 ml Output Urine Total 130 ml 325 ml # Bowel Movements 1 1 CXR: no change Labs: Laboratory Tests Test 01/25/20 03:05 White Blood Count 27.2 K/UL (4.8-10.8) *H Red Blood Count 3.09 M/UL (4.70-6.10) L Hemoglobin 9.6 G/DL (14.2-18.0) L Hematocrit 30.1 % (42.0-52.0) L Mean Corpuscular Volume 97 FL (80-99) Mean Corpuscular Hemoglobin 31.0 PG (27.0-31.0) Mean Corpuscular Hemoglobin Concent 31.8 G/DL (32.0-36.0) L Red Cell Distribution Width 15.8 % (11.6-14.8) H Platelet Count 30 K/UL (150-450) #L Mean Platelet Volume 14.2 FL (6.5-10.1) H Neutrophils (%) (Auto) % (45.0-75.0) Lymphocytes (%) (Auto) % (20.0-45.0) Monocytes (%) (Auto) % (1.0-10.0) Eosinophils (%) (Auto) % (0.0-3.0) Basophils (%) (Auto) % (0.0-2.0) Differential Total Cells Counted 100 Neutrophils % (Manual) 96 % (45-75) H Lymphocytes % (Manual) 2 % (20-45) L Monocytes % (Manual) 2 % (1-10) Eosinophils % (Manual) 0 % (0-3) Basophils % (Manual) 0 % (0-2) Band Neutrophils 0 % (0-8) Platelet Estimate Pending Platelet Morphology Normal Clumped Platelets 3+ Hypochromasia 1+ Anisocytosis 1+ Sodium Level 143 MMOL/L (136-145) Potassium Level 6.7 MMOL/L (3.5-5.1) *H Chloride Level 111 MMOL/L (98-107) H Carbon Dioxide Level 15 MMOL/L (21-32) L Anion Gap 16 mmol/L (5-15) H Blood Urea Nitrogen 160 mg/dL (7-18) H Creatinine 4.0 MG/DL (0.55-1.30) H Estimat Glomerular Filtration Rate 14.4 mL/min (>60) Glucose Level 105 MG/DL (74-106) Calcium Level 8.0 MG/DL (8.5-10.1) L Phosphorus Level 4.3 MG/DL (2.5-4.9) Magnesium Level 2.1 MG/DL (1.8-2.4) Total Bilirubin 0.5 MG/DL (0.2-1.0) Aspartate Amino Transf (AST/SGOT) 43 U/L (15-37) H Alanine Aminotransferase (ALT/SGPT) 31 U/L (12-78) Alkaline Phosphatase 106 U/L (46-116) C-Reactive Protein, Quantitative 23.3 mg/dL (0.00-0.90) H Pro-B-Type Natriuretic Peptide 59282 pg/mL (0-125) H Total Protein 7.1 G/DL (6.4-8.2) Albumin 1.0 G/DL (3.4-5.0) L Globulin 6.1 g/dL Albumin/Globulin Ratio 0.2 (1.0-2.7) L Digoxin Level 2.0 NG/ML (0.5-2.0) Dennis Woodall MD Jan 25, 2020 10:56
[2020-01-25] MEDS ORDERED: Vancomycin 1.5gm/NS Premix q24h IVPB SCH (12:00)
--- NOTE | 2020-01-25 12:07 | Nephrology Progress Note ---
Assessment/Plan Problem List: (1) FRIDA (acute kidney injury) (2) Sepsis (3) Ventilator dependent (4) Bilateral pleural effusion (5) Decubitus skin ulcer (6) Electrolyte imbalance Assessment: Hyperkalemia, hypernatremia Assessment FRIDA Dehydration, hypernatremia, hyperkalemia Anemia Chronic vent dependent, with superimposed acute component Bilateral pleural effusion Sepsis, leukocytosis, UTI Functional quadriplegia History of coronary artery disease and AR Multiple decubiti Chronic malnutrition Plan January 24: Potassium still high. Kayexalate every 6 hours ordered. Patient continues to do poorly. Digoxin level is 2, will hold IV digoxin for now. January 23: Potassium remains high. Kayexalate given. Bicitra started. Midodrin started. Patient DNR now. Continue per consultants. Overall prognosis poor. Hemodynamically unstable for dialysis treatment. Per order. Patient is doing poorly. No urine output. Labs reviewed. Discussed with RN and Miles. Kayexalate given for hyperkalemia. IV D5 and a half normal saline Pressors Antibiotics Skin care Continue per consultants Monitor renal parameters Avoid nephrotoxic's Patient now DNR. No candidate for dialysis treatment due to multiple medical issues, sepsis, poor prognosis. Subjective ROS Limited/Unobtainable: Yes Objective Objective Last 24 Hour Vital Signs Date Time Temp Pulse Resp B/P (MAP) Pulse Ox O2 Delivery O2 Flow Rate FiO2 01/25/20 11:30 95 31 97/65 (76) 97 01/25/20 11:00 97 32 107/64 (78) 97 01/25/20 10:50 95 29 30 01/25/20 10:30 95 31 83/72 (76) 95 01/25/20 10:00 97 32 107/64 (78) 97 01/25/20 09:30 95 30 107/64 (78) 97 01/25/20 09:00 96 32 87/60 (69) 98 01/25/20 08:30 100 33 107/55 (72) 96 01/25/20 08:15 97 01/25/20 08:00 Mechanical Ventilator 01/25/20 08:00 98.1 98 30 94/57 (69) 96 01/25/20 07:49 101 01/25/20 07:30 97 30 100/53 (69) 97 01/25/20 07:28 91 27 30 01/25/20 07:00 30.0 01/25/20 07:00 96 30 109/62 (78) 96 01/25/20 06:30 94 26 01/25/20 06:00 99.4 95 28 108/49 (68) 97 01/25/20 05:30 86 29 104/56 (72) 95 01/25/20 05:21 103/46 01/25/20 05:00 96 30 103/53 (70) 97 01/25/20 04:30 97 30 100/45 (63) 98 01/25/20 04:00 98.6 97 31 96/45 (62) 97 01/25/20 04:00 96 01/25/20 04:00 55.0 01/25/20 04:00 Mechanical Ventilator 01/25/20 03:30 98 31 102/65 (77) 96 01/25/20 03:11 97 29 30 01/25/20 03:00 95 31 101/70 (80) 97 01/25/20 02:30 96 30 109/46 (67) 96 01/25/20 02:00 99 31 111/51 (71) 96 01/25/20 01:30 99 29 96/46 (63) 96 01/25/20 01:00 98 30 96/50 (65) 96 01/25/20 00:30 95 29 98/50 (66) 93 01/25/20 00:30 95 29 93 01/25/20 00:00 Mechanical Ventilator 01/25/20 00:00 55.0 01/25/20 00:00 98.8 91 27 124/65 (84) 96 01/25/20 00:00 94 01/25/20 00:00 91 27 124/65 (84) 96 01/24/20 23:30 93 27 97/50 (66) 97 01/24/20 23:19 91 24 30 01/24/20 23:00 92 26 105/48 (67) 98 01/24/20 22:37 65/42 01/24/20 22:30 79 30 100/50 (67) 87 01/24/20 22:00 98.5 82 31 67/42 (50) 92 01/24/20 21:30 99 31 98/54 (69) 95 01/24/20 21:00 98 31 91/58 (69) 96 01/24/20 20:30 101 32 100/50 (67) 95 01/24/20 20:00 90 01/24/20 20:00 Mechanical Ventilator 01/24/20 20:00 90 01/24/20 20:00 55.0 01/24/20 20:00 101 32 107/49 (68) 93 01/24/20 19:32 100 30 30 01/24/20 19:30 99.0 102 32 100/46 (64) 94 01/24/20 19:07 103 27 109/71 (84) 92 01/24/20 18:30 102 27 113/66 (82) 92 01/24/20 18:00 103 30 101/51 (68) 97 01/24/20 17:30 96 25 109/61 (77) 97 01/24/20 17:00 100 27 106/61 (76) 97 01/24/20 16:30 100 28 116/56 (76) 98 01/24/20 16:14 97/54 01/24/20 16:00 Mechanical Ventilator 01/24/20 16:00 99 01/24/20 16:00 99.6 99 24 116/56 (76) 98 01/24/20 16:00 55.0 01/24/20 15:01 89 30 30 01/24/20 15:00 96 24 97/54 (68) 98 01/24/20 14:00 89 32 95/63 (74) 100 01/24/20 13:31 99 29 99/63 (75) 100 01/24/20 13:00 91 31 88/44 (59) 97 Intake and Output 01/24/20 01/25/20 19:00 07:00 Intake Total 2888 ml 1957.5 ml Output Total 130 ml 325 ml Balance 2758 ml 1632.5 ml Intake IV Total 2408 ml 1857.5 ml Other 480 ml 100 ml Output Urine Total 130 ml 325 ml # Bowel Movements 1 1 Laboratory Tests 01/25/20 03:05: White Blood Count 27.2*H, Red Blood Count 3.09L, Hemoglobin 9.6L, Hematocrit 30.1L, Mean Corpuscular Volume 97, Mean Corpuscular Hemoglobin 31.0, Mean Corpuscular Hemoglobin Concent 31.8L, Red Cell Distribution Width 15.8H, Platelet Count 30#L, Mean Platelet Volume 14.2H, Neutrophils (%) (Auto) , Lymphocytes (%) (Auto) , Monocytes (%) (Auto) , Eosinophils (%) (Auto) , Basophils (%) (Auto) , Differential Total Cells Counted 100, Neutrophils % ( Manual) 96H, Lymphocytes % (Manual) 2L, Monocytes % (Manual) 2, Eosinophils % ( Manual) 0, Basophils % (Manual) 0, Band Neutrophils 0, Platelet Estimate [ Pending], Platelet Morphology Normal, Clumped Platelets 3+, Hypochromasia 1+, Anisocytosis 1+, Sodium Level 143, Potassium Level 6.7*H, Chloride Level 111H, Carbon Dioxide Level 15L, Anion Gap 16H, Blood Urea Nitrogen 160H, Creatinine 4.0H, Estimat Glomerular Filtration Rate 14.4, Glucose Level 105, Calcium Level 8.0L, Phosphorus Level 4.3, Magnesium Level 2.1, Total Bilirubin 0.5, Aspartate Amino Transf (AST/SGOT) 43H, Alanine Aminotransferase (ALT/SGPT) 31, Alkaline Phosphatase 106, C-Reactive Protein, Quantitative 23.3H, Pro-B-Type Natriuretic Peptide 52133D, Total Protein 7.1, Albumin 1.0L, Globulin 6.1, Albumin/Globulin Ratio 0.2L, Digoxin Level 2.0 Height (Feet): 5 Height (Inches): 5.00 Weight (Pounds): 150 General Appearance: no apparent distress, lethargic EENT: other Neck: limited range of motion Cardiovascular: tachycardia Respiratory/Chest: decreased breath sounds Abdomen: distended, other - PEG Ronnie Guevara MD Jan 25, 2020 12:07
[2020-01-25 12:14] LABS: PLATELET COUNT 94 K/UL (150-450)
[2020-01-25] MEDS: DAPTOmycin 400 MG in NS 55 ML IV SCH (12:26)
--- NOTE | 2020-01-25 18:58 | Internal Med Progress Note ---
Subjective Date of Service: Jan 25, 2020 Physician Name BaileeBunny Attending Physician Danis Wolfe MD Current Medications Medications (Trade) Dose Ordered Sig/Margarette Route PRN Reason Start Time Stop Time Status Last Admin Dose Admin Acetaminophen (Tylenol) 650 mg Q4H PRN ORAL fever 01/22/20 08:15 02/21/20 08:14 01/24/20 06:44 Albuterol/ Ipratropium (Albuterol/ Ipratropium) 3 ml Q4H PRN HHN Shortness of Breath 01/22/20 08:15 01/27/20 08:14 Amikacin Protocol (Amikacin pharmacy to dose) 1 ea DAILY PRN MISC . 01/22/20 13:45 02/21/20 13:44 Daptomycin 400 mg/ Sodium Chloride 55 ml @ 100 mls/hr Q48H IV 01/25/20 12:00 02/01/20 11:59 01/25/20 12:26 Heparin Sodium (Porcine) (Heparin 5000 units/ml) 5,000 units EVERY 12 HOURS SUBQ 01/22/20 21:00 03/07/20 20:59 01/24/20 20:56 Lorazepam (Ativan 2mg/ml 1ml) 2 mg Q2H PRN IV For Anxiety 01/22/20 08:15 01/29/20 08:14 Meropenem 500 mg/ Sodium Chloride 55 ml @ 110 mls/hr Q12H IVPB 01/22/20 14:00 01/27/20 13:59 01/25/20 13:58 Midodrine (Pro-Amatine) 10 mg Q8HR GT 01/24/20 14:00 04/23/20 13:59 01/25/20 13:59 Morphine Sulfate (Morphine Sulfate) 4 mg Q4H PRN IVP Severe Pain (Pain Scale 7-10) 01/22/20 08:15 01/29/20 08:14 Norepinephrine Bitartrate 250 ml @ 0 mls/hr Q24H IV 01/22/20 15:00 04/21/20 14:59 01/25/20 12:29 Ondansetron HCl (Zofran) 4 mg Q6H PRN IVP Nausea & Vomiting 01/22/20 08:15 02/21/20 08:14 Pantoprazole (Protonix) 40 mg Q12HR IV 01/22/20 09:30 02/21/20 09:29 01/25/20 08:14 Polyethylene Glycol (Miralax) 17 gm DAILYPRN PRN ORAL Constipation 01/22/20 08:15 02/21/20 08:14 Sodium Bicarbonate 100 ml/Dextrose/ Sodium Chloride 1,100 ml @ 100 mls/hr Q11H IV 01/25/20 09:00 02/24/20 08:59 01/25/20 09:13 Sodium Citrate (Bicitra) 30 ml EVERY 6 HOURS GT 01/24/20 18:00 02/23/20 17:59 01/25/20 17:33 Allergies: Coded Allergies: NSAIDS (NON-STEROIDAL ANTI-INFLAMMA (Unverified Allergy, Unknown, 11/27/18) PIPERACILLIN (Unverified Allergy, Unknown, 01/25/19) tolerates carbapenem TAZOBACTAM (Unverified Allergy, Unknown, 11/27/18) Uncoded Allergies: NSAID (Allergy, Unknown, 09/14/18) ROS Limited/Unobtainable: Yes Subjective 84 YO M admitted with respiratory failure. Now pneumonia and hypotension. intubated and sedated. Cover for Int Med-DR Wolfe. ICU Objective Last Vital Signs Date Time Temp Pulse Resp B/P (MAP) Pulse Ox O2 Delivery O2 Flow Rate FiO2 01/25/20 18:00 101 34 95/52 (66) 96 01/25/20 16:30 98.4 01/25/20 16:00 30 01/25/20 16:00 Mechanical Ventilator 01/25/20 07:00 30.0 Laboratory Tests Test 01/25/20 03:05 White Blood Count 27.2 K/UL (4.8-10.8) *H Red Blood Count 3.09 M/UL (4.70-6.10) L Hemoglobin 9.6 G/DL (14.2-18.0) L Hematocrit 30.1 % (42.0-52.0) L Mean Corpuscular Volume 97 FL (80-99) Mean Corpuscular Hemoglobin 31.0 PG (27.0-31.0) Mean Corpuscular Hemoglobin Concent 31.8 G/DL (32.0-36.0) L Red Cell Distribution Width 15.8 % (11.6-14.8) H Platelet Count 94 K/UL (150-450) L Mean Platelet Volume 14.2 FL (6.5-10.1) H Neutrophils (%) (Auto) % (45.0-75.0) Lymphocytes (%) (Auto) % (20.0-45.0) Monocytes (%) (Auto) % (1.0-10.0) Eosinophils (%) (Auto) % (0.0-3.0) Basophils (%) (Auto) % (0.0-2.0) Differential Total Cells Counted 100 Neutrophils % (Manual) 96 % (45-75) H Lymphocytes % (Manual) 2 % (20-45) L Monocytes % (Manual) 2 % (1-10) Eosinophils % (Manual) 0 % (0-3) Basophils % (Manual) 0 % (0-2) Band Neutrophils 0 % (0-8) Platelet Estimate Adequate Platelet Morphology Normal Clumped Platelets 3+ Hypochromasia 1+ Anisocytosis 1+ Sodium Level 143 MMOL/L (136-145) Potassium Level 6.7 MMOL/L (3.5-5.1) *H Chloride Level 111 MMOL/L (98-107) H Carbon Dioxide Level 15 MMOL/L (21-32) L Anion Gap 16 mmol/L (5-15) H Blood Urea Nitrogen 160 mg/dL (7-18) H Creatinine 4.0 MG/DL (0.55-1.30) H Estimat Glomerular Filtration Rate 14.4 mL/min (>60) Glucose Level 105 MG/DL (74-106) Calcium Level 8.0 MG/DL (8.5-10.1) L Phosphorus Level 4.3 MG/DL (2.5-4.9) Magnesium Level 2.1 MG/DL (1.8-2.4) Total Bilirubin 0.5 MG/DL (0.2-1.0) Aspartate Amino Transf (AST/SGOT) 43 U/L (15-37) H Alanine Aminotransferase (ALT/SGPT) 31 U/L (12-78) Alkaline Phosphatase 106 U/L (46-116) C-Reactive Protein, Quantitative 23.3 mg/dL (0.00-0.90) H Pro-B-Type Natriuretic Peptide 31116 pg/mL (0-125) H Total Protein 7.1 G/DL (6.4-8.2) Albumin 1.0 G/DL (3.4-5.0) L Globulin 6.1 g/dL Albumin/Globulin Ratio 0.2 (1.0-2.7) L Digoxin Level 2.0 NG/ML (0.5-2.0) Intake and Output 01/24/20 01/25/20 18:59 06:59 Intake Total 3043 ml 1795.0 ml Output Total 150 ml 320 ml Balance 2893 ml 1475.0 ml Intake IV Total 2563 ml 1695.0 ml Other 480 ml 100 ml Output Urine Total 150 ml 320 ml # Bowel Movements 1 1 Objective PHYSICAL EXAMINATION: GENERAL: The patient is contracted, thin-appearing male, in no apparent distress. HEENT: Eyes, pupils are equal and responsive to light and accommodation. Extraocular movements are intact. NECK: Supple without lymphadenopathy. There is trachea midline noted. There is no erythema about the trachea. CHEST: Mech vent; Decreased breath sounds at bilateral bases with expiratory wheezes, otherwise without rales. CARDIOVASCULAR EXAM: Tachycardic, regular rate. S1, S2 normal without murmurs, rubs, or gallops. ABDOMEN: Soft, nontender, and nondistended. Positive bowel sounds. No evidence of hepatosplenomegaly. Currently, no rebound or guarding noted. EXTREMITIES: Negative for clubbing, cyanosis, or edema. RECTAL/GENITAL: Not performed. NEUROLOGIC: Unable to assess. Assessment/Plan Assessment/Plan ASSESSMENT: This is an 84-year-old male. 1. Hypoxemic respiratory failure. 2. Pneumonia=proteus mirabilis 3. Dysphagia. 4. Functional quadriplegia. 5. Alzheimer's dementia. 6. Amzuo-fo-efzkttg renal failure. 7. Sepsis 8. Hyperkalemia TREATMENT: 1. Hypoxemic respiratory failure/pneumonia. A Pulmonary consultation has been obtained with Dr. Dennis Woodall. The patient is currently intubated in the intensive care unit. 2. Antibiotics= amikacin and Daptomycin. ID=Dr Dorantes. A rapid COVID-19 test was reported as negative. 2. History of dysphagia. The patient is status post PEG placement. 3. Functional quadriplegia. 4. Alzheimer's dementia. 5. Cmhnb-dr-xuymlal renal failure/hyperkalemia A Nephrology consultation has been obtained with Dr. Ronnie Guevara. Continue Bunny Adams MD Jan 25, 2020 18:58
--- NOTE | 2020-01-25 20:01 | Cardiology Progress Note ---
Assessment/Plan Assessment/Plan 1. Septic shock. 2. citrobacter bacteremia 3. Respiratory failure, acute on chronic. 4. Pneumonia. 5. Chronic respiratory failure. 6. Atrial fibrillation, paroxysmal in nature. 7. Contracted extremities. 8. Decubitus ulcers. 9. Hypernatremia. 10. Renal failure. now in sinus still no afib since last ntie amiod if had recurrent of afib prognosis is poor abx vent support now covid neg to review echo vent support dialysis as hemodynamically allowed pressors abx dnr d/w out going rn Subjective ROS Limited/Unobtainable: Yes Objective Last 24 Hour Vital Signs Date Time Temp Pulse Resp B/P (MAP) Pulse Ox O2 Delivery O2 Flow Rate FiO2 01/25/20 19:32 91 32 30 01/25/20 19:00 101 32 110/63 (79) 93 01/25/20 18:45 100 34 81/51 (61) 97 01/25/20 18:30 100 32 71/50 (57) 97 01/25/20 18:00 101 34 95/52 (66) 96 01/25/20 17:30 99 32 93/55 (68) 95 01/25/20 17:00 100 34 85/59 (68) 93 01/25/20 16:30 98.4 100 33 99/54 (69) 96 01/25/20 16:10 100 01/25/20 16:00 30 01/25/20 16:00 Mechanical Ventilator 01/25/20 16:00 99 31 90/57 (68) 97 01/25/20 15:30 99 25 117/59 (78) 96 01/25/20 15:21 104 30 30 01/25/20 15:00 97 29 89/54 (66) 94 01/25/20 14:30 98 31 107/80 (89) 96 01/25/20 14:00 96 31 108/72 (84) 94 01/25/20 13:30 96 31 98/51 (67) 96 01/25/20 13:00 97 29 110/54 (72) 97 01/25/20 12:30 88 29 106/60 (75) 96 01/25/20 12:29 97/65 01/25/20 12:11 89 01/25/20 12:00 98.4 94 31 114/61 (78) 97 01/25/20 12:00 30 01/25/20 12:00 Mechanical Ventilator 01/25/20 11:30 95 31 97/65 (76) 97 01/25/20 11:00 97 32 107/64 (78) 97 01/25/20 10:50 95 29 30 01/25/20 10:30 95 31 83/72 (76) 95 01/25/20 10:00 97 32 107/64 (78) 97 01/25/20 09:30 95 30 107/64 (78) 97 01/25/20 09:00 96 32 87/60 (69) 98 01/25/20 08:30 100 33 107/55 (72) 96 01/25/20 08:15 97 01/25/20 08:00 Mechanical Ventilator 01/25/20 08:00 30 01/25/20 08:00 98.1 98 30 94/57 (69) 96 01/25/20 07:49 101 01/25/20 07:30 97 30 100/53 (69) 97 01/25/20 07:28 91 27 30 01/25/20 07:00 30.0 01/25/20 07:00 96 30 109/62 (78) 96 01/25/20 06:30 94 26 01/25/20 06:00 99.4 95 28 108/49 (68) 97 01/25/20 05:30 86 29 104/56 (72) 95 01/25/20 05:21 103/46 01/25/20 05:00 96 30 103/53 (70) 97 01/25/20 04:30 97 30 100/45 (63) 98 01/25/20 04:00 98.6 97 31 96/45 (62) 97 01/25/20 04:00 96 01/25/20 04:00 55.0 01/25/20 04:00 Mechanical Ventilator 01/25/20 03:30 98 31 102/65 (77) 96 01/25/20 03:11 97 29 30 01/25/20 03:00 95 31 101/70 (80) 97 01/25/20 02:30 96 30 109/46 (67) 96 01/25/20 02:00 99 31 111/51 (71) 96 01/25/20 01:30 99 29 96/46 (63) 96 01/25/20 01:00 98 30 96/50 (65) 96 01/25/20 00:30 95 29 98/50 (66) 93 01/25/20 00:30 95 29 93 01/25/20 00:00 Mechanical Ventilator 01/25/20 00:00 55.0 01/25/20 00:00 98.8 91 27 124/65 (84) 96 01/25/20 00:00 94 01/25/20 00:00 91 27 124/65 (84) 96 01/24/20 23:30 93 27 97/50 (66) 97 01/24/20 23:19 91 24 30 01/24/20 23:00 92 26 105/48 (67) 98 01/24/20 22:37 65/42 01/24/20 22:30 79 30 100/50 (67) 87 01/24/20 22:00 98.5 82 31 67/42 (50) 92 01/24/20 21:30 99 31 98/54 (69) 95 01/24/20 21:00 98 31 91/58 (69) 96 01/24/20 20:30 101 32 100/50 (67) 95 General Appearance: no apparent distress, on vent, patient on isolation, isolation precautions Extremities: other - cntracted Intake and Output 01/24/20 01/25/20 19:00 07:00 Intake Total 2888 ml 1957.5 ml Output Total 130 ml 325 ml Balance 2758 ml 1632.5 ml Intake IV Total 2408 ml 1857.5 ml Other 480 ml 100 ml Output Urine Total 130 ml 325 ml # Bowel Movements 1 1 Laboratory Tests Test 01/25/20 03:05 White Blood Count 27.2 K/UL (4.8-10.8) *H Red Blood Count 3.09 M/UL (4.70-6.10) L Hemoglobin 9.6 G/DL (14.2-18.0) L Hematocrit 30.1 % (42.0-52.0) L Mean Corpuscular Volume 97 FL (80-99) Mean Corpuscular Hemoglobin 31.0 PG (27.0-31.0) Mean Corpuscular Hemoglobin Concent 31.8 G/DL (32.0-36.0) L Red Cell Distribution Width 15.8 % (11.6-14.8) H Platelet Count 94 K/UL (150-450) L Mean Platelet Volume 14.2 FL (6.5-10.1) H Neutrophils (%) (Auto) % (45.0-75.0) Lymphocytes (%) (Auto) % (20.0-45.0) Monocytes (%) (Auto) % (1.0-10.0) Eosinophils (%) (Auto) % (0.0-3.0) Basophils (%) (Auto) % (0.0-2.0) Differential Total Cells Counted 100 Neutrophils % (Manual) 96 % (45-75) H Lymphocytes % (Manual) 2 % (20-45) L Monocytes % (Manual) 2 % (1-10) Eosinophils % (Manual) 0 % (0-3) Basophils % (Manual) 0 % (0-2) Band Neutrophils 0 % (0-8) Platelet Estimate Adequate Platelet Morphology Normal Clumped Platelets 3+ Hypochromasia 1+ Anisocytosis 1+ Sodium Level 143 MMOL/L (136-145) Potassium Level 6.7 MMOL/L (3.5-5.1) *H Chloride Level 111 MMOL/L (98-107) H Carbon Dioxide Level 15 MMOL/L (21-32) L Anion Gap 16 mmol/L (5-15) H Blood Urea Nitrogen 160 mg/dL (7-18) H Creatinine 4.0 MG/DL (0.55-1.30) H Estimat Glomerular Filtration Rate 14.4 mL/min (>60) Glucose Level 105 MG/DL (74-106) Calcium Level 8.0 MG/DL (8.5-10.1) L Phosphorus Level 4.3 MG/DL (2.5-4.9) Magnesium Level 2.1 MG/DL (1.8-2.4) Total Bilirubin 0.5 MG/DL (0.2-1.0) Aspartate Amino Transf (AST/SGOT) 43 U/L (15-37) H Alanine Aminotransferase (ALT/SGPT) 31 U/L (12-78) Alkaline Phosphatase 106 U/L (46-116) C-Reactive Protein, Quantitative 23.3 mg/dL (0.00-0.90) H Pro-B-Type Natriuretic Peptide 65293 pg/mL (0-125) H Total Protein 7.1 G/DL (6.4-8.2) Albumin 1.0 G/DL (3.4-5.0) L Globulin 6.1 g/dL Albumin/Globulin Ratio 0.2 (1.0-2.7) L Digoxin Level 2.0 NG/ML (0.5-2.0) Kenji Shane MD Jan 25, 2020 20:01
--- NOTE | 2020-01-25 20:42 | Surgery Progress Note ---
Surgery Progress Note Subjective Symptoms: other Objective Last 24 Hour Vital Signs Date Time Temp Pulse Resp B/P (MAP) Pulse Ox O2 Delivery O2 Flow Rate FiO2 01/25/20 20:00 99.2 105 26 105/54 (71) 93 01/25/20 20:00 Mechanical Ventilator 01/25/20 20:00 30 01/25/20 19:57 102 35 95/54 (68) 96 01/25/20 19:54 101 37 73/44 (54) 95 01/25/20 19:38 107 28 140/51 (80) 78 01/25/20 19:33 88 30 48/27 (34) 77 01/25/20 19:32 91 32 30 01/25/20 19:30 90 27 61/48 (52) 95 01/25/20 19:00 101 32 110/63 (79) 93 01/25/20 18:45 100 34 81/51 (61) 97 01/25/20 18:30 100 32 71/50 (57) 97 01/25/20 18:00 101 34 95/52 (66) 96 01/25/20 17:30 99 32 93/55 (68) 95 01/25/20 17:00 100 34 85/59 (68) 93 01/25/20 16:30 98.4 100 33 99/54 (69) 96 01/25/20 16:10 100 01/25/20 16:00 30 01/25/20 16:00 Mechanical Ventilator 01/25/20 16:00 99 31 90/57 (68) 97 01/25/20 15:30 99 25 117/59 (78) 96 01/25/20 15:21 104 30 30 01/25/20 15:00 97 29 89/54 (66) 94 01/25/20 14:30 98 31 107/80 (89) 96 01/25/20 14:00 96 31 108/72 (84) 94 01/25/20 13:30 96 31 98/51 (67) 96 01/25/20 13:00 97 29 110/54 (72) 97 01/25/20 12:30 88 29 106/60 (75) 96 01/25/20 12:29 97/65 01/25/20 12:11 89 01/25/20 12:00 98.4 94 31 114/61 (78) 97 01/25/20 12:00 30 01/25/20 12:00 Mechanical Ventilator 01/25/20 11:30 95 31 97/65 (76) 97 01/25/20 11:00 97 32 107/64 (78) 97 01/25/20 10:50 95 29 30 01/25/20 10:30 95 31 83/72 (76) 95 01/25/20 10:00 97 32 107/64 (78) 97 01/25/20 09:30 95 30 107/64 (78) 97 01/25/20 09:00 96 32 87/60 (69) 98 01/25/20 08:30 100 33 107/55 (72) 96 01/25/20 08:15 97 01/25/20 08:00 Mechanical Ventilator 01/25/20 08:00 30 01/25/20 08:00 98.1 98 30 94/57 (69) 96 01/25/20 07:49 101 01/25/20 07:30 97 30 100/53 (69) 97 01/25/20 07:28 91 27 30 01/25/20 07:00 30.0 01/25/20 07:00 96 30 109/62 (78) 96 01/25/20 06:30 94 26 01/25/20 06:00 99.4 95 28 108/49 (68) 97 01/25/20 05:30 86 29 104/56 (72) 95 01/25/20 05:21 103/46 01/25/20 05:00 96 30 103/53 (70) 97 01/25/20 04:30 97 30 100/45 (63) 98 01/25/20 04:00 98.6 97 31 96/45 (62) 97 01/25/20 04:00 96 01/25/20 04:00 55.0 01/25/20 04:00 Mechanical Ventilator 01/25/20 03:30 98 31 102/65 (77) 96 01/25/20 03:11 97 29 30 01/25/20 03:00 95 31 101/70 (80) 97 01/25/20 02:30 96 30 109/46 (67) 96 01/25/20 02:00 99 31 111/51 (71) 96 01/25/20 01:30 99 29 96/46 (63) 96 01/25/20 01:00 98 30 96/50 (65) 96 01/25/20 00:30 95 29 98/50 (66) 93 01/25/20 00:30 95 29 93 01/25/20 00:00 Mechanical Ventilator 01/25/20 00:00 55.0 01/25/20 00:00 98.8 91 27 124/65 (84) 96 01/25/20 00:00 94 01/25/20 00:00 91 27 124/65 (84) 96 01/24/20 23:30 93 27 97/50 (66) 97 01/24/20 23:19 91 24 30 01/24/20 23:00 92 26 105/48 (67) 98 01/24/20 22:37 65/42 01/24/20 22:30 79 30 100/50 (67) 87 01/24/20 22:00 98.5 82 31 67/42 (50) 92 01/24/20 21:30 99 31 98/54 (69) 95 01/24/20 21:00 98 31 91/58 (69) 96 I&O Intake and Output 01/24/20 01/25/20 19:00 07:00 Intake Total 2888 ml 1957.5 ml Output Total 130 ml 325 ml Balance 2758 ml 1632.5 ml Intake IV Total 2408 ml 1857.5 ml Other 480 ml 100 ml Output Urine Total 130 ml 325 ml # Bowel Movements 1 1 Dressing: saturated Cardiovascular: RSR Respiratory: decreased breath sounds Abdomen: soft, non-tender, present bowel sounds, non-distended Extremities: no cyanosis, other Laboratory Tests Test 01/25/20 03:05 White Blood Count 27.2 K/UL (4.8-10.8) *H Red Blood Count 3.09 M/UL (4.70-6.10) L Hemoglobin 9.6 G/DL (14.2-18.0) L Hematocrit 30.1 % (42.0-52.0) L Mean Corpuscular Volume 97 FL (80-99) Mean Corpuscular Hemoglobin 31.0 PG (27.0-31.0) Mean Corpuscular Hemoglobin Concent 31.8 G/DL (32.0-36.0) L Red Cell Distribution Width 15.8 % (11.6-14.8) H Platelet Count 94 K/UL (150-450) L Mean Platelet Volume 14.2 FL (6.5-10.1) H Neutrophils (%) (Auto) % (45.0-75.0) Lymphocytes (%) (Auto) % (20.0-45.0) Monocytes (%) (Auto) % (1.0-10.0) Eosinophils (%) (Auto) % (0.0-3.0) Basophils (%) (Auto) % (0.0-2.0) Differential Total Cells Counted 100 Neutrophils % (Manual) 96 % (45-75) H Lymphocytes % (Manual) 2 % (20-45) L Monocytes % (Manual) 2 % (1-10) Eosinophils % (Manual) 0 % (0-3) Basophils % (Manual) 0 % (0-2) Band Neutrophils 0 % (0-8) Platelet Estimate Adequate Platelet Morphology Normal Clumped Platelets 3+ Hypochromasia 1+ Anisocytosis 1+ Sodium Level 143 MMOL/L (136-145) Potassium Level 6.7 MMOL/L (3.5-5.1) *H Chloride Level 111 MMOL/L (98-107) H Carbon Dioxide Level 15 MMOL/L (21-32) L Anion Gap 16 mmol/L (5-15) H Blood Urea Nitrogen 160 mg/dL (7-18) H Creatinine 4.0 MG/DL (0.55-1.30) H Estimat Glomerular Filtration Rate 14.4 mL/min (>60) Glucose Level 105 MG/DL (74-106) Calcium Level 8.0 MG/DL (8.5-10.1) L Phosphorus Level 4.3 MG/DL (2.5-4.9) Magnesium Level 2.1 MG/DL (1.8-2.4) Total Bilirubin 0.5 MG/DL (0.2-1.0) Aspartate Amino Transf (AST/SGOT) 43 U/L (15-37) H Alanine Aminotransferase (ALT/SGPT) 31 U/L (12-78) Alkaline Phosphatase 106 U/L (46-116) C-Reactive Protein, Quantitative 23.3 mg/dL (0.00-0.90) H Pro-B-Type Natriuretic Peptide 01175 pg/mL (0-125) H Total Protein 7.1 G/DL (6.4-8.2) Albumin 1.0 G/DL (3.4-5.0) L Globulin 6.1 g/dL Albumin/Globulin Ratio 0.2 (1.0-2.7) L Digoxin Level 2.0 NG/ML (0.5-2.0) Plan Problems: (1) Dehydration (2) Urinary tract infection (3) Ventilator dependent (4) Bilateral pleural effusion (5) Decubitus skin ulcer Assessment & Plan: Pt presented on admission with in grossly unkempt state, with Contractures and multiple Pressure injuries.Skin turgor is poor. Color is dusky. Generalized dry,scaly skin. Gastrostomy stoma is eroded and oozing moderate amt malodorous,Black,mud consistency exudate. Clusters of Unstageabloe Pressure injury Thoracic Spine. Base of wound has multiple small islands of slough with soft erythematous bridges giving wound appearance of multiple wounds. Area measuring (L)4cm x (W)3.6cm. In close proximity, to L of thoracic spine is a Partial thickness Pressure injury(L)5cm x (W)3.5cm. Base of wound is cade with macerated borders.Small amt sanguineous exudate noted. Resolving Full thickness 4 Pressure injury R Trochanter(L)0.7cm x (W)1.2cm, slight tunneled area at 11o'clock by 0.3cm. Surrounding pink epithelial bordered by hyperpigmentation. NO odor or exudate noted. Partial thickness shearing noted over Previously compromised skin (L)9cm x (W) 10.5cm. Base of wound is erythematous with multiple Scattered satellite lesions that are oozing sanguineous exudate. Unstageable Pressure injury distally, medial R Tibia(L)1.3cm x (W)1.1 cm . Base of wound is 100% yellow slough with marginal erythematous borders. No odor or exudate noted. Xerosis skin periwound. Pressure injury R Hallux. Base of wound is 40% dry eschar ,60% pink epithelial. No exudate noted. No erythema or fluctuance periwound. R Heel is boggy with non-blanchable erythema. Wound Plantar R foot(L)0.6cm x (W)0.8cm. 100% slough at base of wound . Marginal erythema along edges. Periwound is fluctuant and erythematous. At web space between R 1st and 2nd metatarsals is a Partial Thickness wound that is cade and oozing small amt sanguineous exudate. At Plantar aspect of R 3rd metatarsal noted to be oozing small amt Sanguineous exudate. Assessment of wound is not fully appreciated secondary to clubbing of metatarsals. Swabbed with Betadine and small gauze pressure drsg applied. Resolving Pressure Injury L Heel(L)6.5cm x (W)5cm. Base of wound is 90% pink epithelial, 10% dry eschar. NO odor or exudate noted . Scattered small dry,black scabs noted to R and L dorsal aspects feet ,including dorsal aspects of metatarsals both feet. Cleanse wounds Thoracic Spine with Saline. Apply TheraHoney. Apply Cavilon Skin Barrier Periwound. Cover with Optifoam drsg.Change every 3 days and prn. Apply Moisture Barrier Paste to Buttocks. Cover with Optifoam drsg. Change every 3 days and prn. Apply Betadine to wounds both feet. Cover with Abd pads and wrap each foot with Kerlix drsg. Wash GT site with Soap and Water and apply Loose Gauze drsg Daily and prn. Cleanse wound R trochanter with saline. Apply Therahoney,Apply Cavilon Periwound. Cover with Optifoam drsg. Change every 3 days and prn. Cleanse wounds L hip and L trochanter with Saline. Apply Therahoney. Apply Cavilon periwound .Cover with Optifoam drsg every 3 days and prn. Cleanse wounds L scapula with Saline. Apply TheraHoney. Apply Cavilon periwound.Cover with Optifoam drsg every 3 days and prn. Apply Triad paste to sacrum ,groin and scrotum with each Incontinence care. Cleanse wounds R and L foot with Saline. Apply TheraHoney. Cover wounds with Abd pads and wrap both feet with Kerlix gauze every 3 days and prn. Air Fluidized mattress. Reposition at least every 2hours or as tolerated. Place pillow between knees. Off-load heels with pillow. nutritional; optimization (6) funtional quadriplegia (7) Sepsis Assessment & Plan: labs reviewed on abx cxr noted unchanged wean as tolerated tf chris lira will monitor (8) Chronic respiratory failure (9) Pneumonia (10) Acute on chronic respiratory failure Assessment & Plan: Bilateral interstitial opacities, left basilar pleural fluid and/or consolidation, left lung volume loss appear unchanged. Tracheostomy remains. 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 2) Swallowing difficulty r/t respiratory failure as evidenced by pt is trach/ vent dep and GT dependent. CURRENT TF:NPO ENTERAL NUTRITION RECOMMENDATIONS: Nepro @ 45ml/hr x 24 hrs to provide 1080ml, 1944kcal, 87g prot, 785ml free water FEED W/ HEMODYNAMIC STABILITY -> Rec Nepro at this time due to ARF, K consistently elev, now 6.2* -> Initiate Nepro @ 15ml/hr x 6hrs, advance 10ml q 4-6 hrs as tolerated to goal rate -> HOB over 30 degrees/ water flush per MD Without hemodynamic stability, rec trophic feeding of Nepro @ 5ml/hr x 24hrs ADDITIONAL RECOMMENDATIONS: * PER SNF: HT=72 inches, BM=609tqi (01/08) vs EMR HT= 65" inches and IT=715ihx -> RECALIBRATE BEDSCALE * Monitor renal fxn and lytes, need for continued rec for Nepro * Monitor HD stability: NE @ 6mcg * Wound healing: add vit C 500mg BID, Edmond BID w/ TF order * Consider accuchecks for close BG monitoring for hypoglycemia -> cont D5 while pt NPO (13) Protein-calorie malnutrition, severe (14) At high risk for aspiration (15) ATN (acute tubular necrosis) (16) Severe anemia (17) Encephalopathy acute Stanislav Avelar Jan 25, 2020 20:42
[2020-01-25] MEDS: Norepinephrine Bitartrate 8 MG in D5W 500ml 492 ML IV SCH (23:46)
[2020-01-26] VITALS (51 sets, daily range): BP systolic 56–126; BP diastolic 42–79
[2020-01-26] MEDS: Meropenem 500 MG in NS 55 ML IVPB SCH ×2 (00:55→13:33)
[2020-01-26 04:54] LABS: HEMATOCRIT 27.2 % (42.0-52.0); HEMOGLOBIN 8.6 G/DL (14.2-18.0); MEAN CORPUSCULAR VOLUME 96 FL (80-99); PLATELET COUNT 38 K/UL (150-450); RED BLOOD COUNT 2.82 M/UL (4.70-6.10); RED CELL DISTRIBUTION WIDTH 15.6 % (11.6-14.8); WHITE BLOOD COUNT 20.2 K/UL (4.8-10.8)
[2020-01-26 05:17] LABS: CREATINE KINASE 268 U/L (26-308)
[2020-01-26 05:27] LABS: ALANINE AMINOTRANSFERASE 26 U/L (12-78); ALBUMIN 0.9 G/DL (3.4-5.0); ALBUMIN/GLOBULIN RATIO 0.2 (1.0-2.7); ALKALINE PHOSPHATASE 101 U/L (46-116); ANION GAP 13 mmol/L (5-15); ASPARTATE AMINO TRANSFERASE 47 U/L (15-37); BILIRUBIN,TOTAL 0.5 MG/DL (0.2-1.0); BLOOD UREA NITROGEN 159 mg/dL (7-18); CALCIUM 7.5 MG/DL (8.5-10.1); CARBON DIOXIDE 21 MMOL/L (21-32); CHLORIDE 111 MMOL/L (98-107); CREATININE 4.6 MG/DL (0.55-1.30); PHOSPHORUS 5.4 MG/DL (2.5-4.9); POTASSIUM 5.8 MMOL/L (3.5-5.1); SODIUM 145 MMOL/L (136-145)
[2020-01-26] MEDS: Sodium Citrate 30ml GT SCH ×4 (05:52→23:12)
[2020-01-26] MEDS: Sodium Bicarbonate 100 ML in D5 1/2NS 1,000 ML IV SCH ×2 (05:52→17:48)
[2020-01-26] MEDS: Midodrine 10mg tab GT SCH ×3 (05:52→21:26)
[2020-01-26] MEDS: Norepinephrine Bitartrate 8 MG in D5W 500ml 492 ML IV SCH ×3 (06:00→21:45)
[2020-01-26] MEDS: Pantoprazole Inj IV SCH ×2 (08:21→21:27)
[2020-01-26] MEDS: Heparin 5000 units/ml inj SUBQ SCH ×2 (08:43→20:53)
[2020-01-26] MEDS ORDERED: D5 1/2NS 1000ml IV ONE (09:17)
[2020-01-26] MEDS ORDERED: D5NS 1000ml IV ONE (09:17)
[2020-01-26] MEDS ORDERED: Sterile Water Irrig 1000ml IRRIG ONE (09:17)
--- NOTE | 2020-01-26 09:52 | Pulmonolgy Critical Care Note ---
Critical Care - Asmt/Plan Problems: (1) Encephalopathy acute (2) Multiple organ failure (3) Acute on chronic respiratory failure (4) Sepsis (5) FRIDA (acute kidney injury) (6) Thrombocytopenia (7) Dehydration (8) Feeding by G-tube (9) Protein-calorie malnutrition, severe (10) Chronic respiratory failure (11) funtional quadriplegia (12) Ventilator dependent Respiratory: monitor respiratory rate, adjust FIO2, CXR Cardiac: continue pressors, continue to monitor HR/BP Renal: F/U I&O, keep IV fluid Infectious Disease: check cultures, continue antibiotics Gastrointestinal: continue feedings/current rate Endocrine: continue sliding scale insulin Hematologic: monitor H/H, transfuse if hgb<8.5 Neurologic: keep patient comfortable Affect: PRN ativan Prophylaxis: Protonix Time Spent (Minutes): 40 Notes Reviewed: locum ten[employer] psychiatrist, cardio, renal Discussed with: nurses, consultants, case checkermanager diabetes - Objective Last 24 Hour Vital Signs Date Time Temp Pulse Resp B/P (MAP) Pulse Ox O2 Delivery O2 Flow Rate FiO2 01/26/20 09:30 109 32 88/46 (60) 95 01/26/20 09:00 99.2 112 33 87/46 (60) 94 01/26/20 08:09 109 01/26/20 08:00 Mechanical Ventilator 01/26/20 08:00 30 01/26/20 08:00 110 33 92/50 (64) 98 01/26/20 07:30 103 32 87/49 (62) 96 01/26/20 07:24 114 35 30 01/26/20 07:00 92/53 01/26/20 07:00 110 32 92/53 (66) 95 01/26/20 06:30 106 34 01/26/20 06:00 106/61 01/26/20 06:00 112 33 87/52 (64) 97 01/26/20 05:30 107 33 93/46 (62) 96 01/26/20 05:00 106/61 01/26/20 05:00 116 31 98/48 (65) 96 01/26/20 04:00 Mechanical Ventilator 01/26/20 04:00 109 01/26/20 04:00 112/60 01/26/20 04:00 98.9 112 31 100/52 (68) 97 01/26/20 04:00 30 7/23/20 03:30 112 31 90/46 (61) 96 01/26/20 03:00 123/52 01/26/20 03:00 101 99/46 (63) 95 01/26/20 02:47 108 31 30 01/26/20 02:30 104 32 96/62 (73) 94 01/26/20 02:00 110/56 01/26/20 02:00 107 32 101/52 (68) 96 01/26/20 01:30 108 33 107/79 (88) 94 01/26/20 01:00 98/55 01/26/20 01:00 103 31 122/54 (76) 96 01/26/20 00:45 103 31 122/54 (76) 96 01/26/20 00:37 105 32 124/53 (76) 95 01/26/20 00:30 105 32 96/55 (69) 95 01/26/20 00:09 105 34 123/63 (83) 95 01/26/20 00:04 99 32 86/52 (63) 94 01/26/20 00:03 101 30 56/42 (47) 94 01/26/20 00:00 99.4 100 29 85/44 (58) 94 01/26/20 00:00 30 01/26/20 00:00 124/53 01/26/20 00:00 Mechanical Ventilator 01/25/20 23:46 96/60 01/25/20 23:30 103 31 97/54 (68) 95 01/25/20 23:13 100 01/25/20 23:00 105 26 96/60 (72) 95 01/25/20 22:36 110 29 30 01/25/20 22:30 102 30 91/53 (66) 95 20 22:00 104 30 106/54 (71) 95 01/25/20 21:30 103 29 88/50 (63) 95 01/25/20 21:00 103 30 96/53 (67) 95 01/25/20 20:53 104 30 92/51 (65) 95 01/25/20 20:30 108 32 81/49 (60) 94 01/25/20 20:00 99.2 105 26 105/54 (71) 93 20 20:00 104 01/25/20 20:00 Mechanical Ventilator 01/25/20 20:00 30 01/25/20 19:57 102 35 95/54 (68) 96 01/25/20 19:54 101 37 73/44 (54) 95 01/25/20 19:38 107 28 140/51 (80) 78 01/25/20 19:33 88 30 48/27 (34) 77 01/25/20 19:32 91 32 30 01/25/20 19:30 90 27 61/48 (52) 95 01/25/20 19:00 101 32 110/63 (79) 93 01/25/20 18:45 100 34 81/51 (61) 97 01/25/20 18:30 100 32 71/50 (57) 97 01/25/20 18:00 101 34 95/52 (66) 96 01/25/20 17:30 99 32 93/55 (68) 95 01/25/20 17:00 100 34 85/59 (68) 93 01/25/20 16:30 98.4 100 33 99/54 (69) 96 01/25/20 16:10 100 01/25/20 16:00 30 01/25/20 16:00 Mechanical Ventilator 01/25/20 16:00 99 31 90/57 (68) 97 01/25/20 15:30 99 25 117/59 (78) 96 01/25/20 15:21 104 30 30 01/25/20 15:00 97 29 89/54 (66) 94 01/25/20 14:30 98 31 107/80 (89) 96 01/25/20 14:00 96 31 108/72 (84) 94 01/25/20 13:30 96 31 98/51 (67) 96 01/25/20 13:00 97 29 110/54 (72) 97 01/25/20 12:30 88 29 106/60 (75) 96 01/25/20 12:29 97/65 01/25/20 12:11 89 01/25/20 12:00 98.4 94 31 114/61 (78) 97 01/25/20 12:00 30 01/25/20 12:00 Mechanical Ventilator 01/25/20 11:30 95 31 97/65 (76) 97 01/25/20 11:00 97 32 107/64 (78) 97 01/25/20 10:50 95 29 30 01/25/20 10:30 95 31 83/72 (76) 95 01/25/20 10:00 97 32 107/64 (78) 97 Status: obtunded Condition: critical HEENT: atraumatic Lungs: rales, rhonchi Heart: HR/BP stable Abdomen: soft Extremities: no C/C/E Micro: Microbiology Date/Time Source Procedure Growth Status 01/24/20 09:05 Blood Blood Culture - Preliminary NO GROWTH AFTER 24 HOURS Resulted 01/24/20 08:55 Blood Blood Culture - Preliminary NO GROWTH AFTER 24 HOURS Resulted Critical Care - Subjective ROS Limited/Unobtainable: Yes Condition: critical, grave EKG Rhythm: Sinus Tachycardia FI02: 30 Vent Support Breath Rate: 16 Vent Support Mode: AC Vent Tidal Volume: 500 Sputum Amount: Small PEEP: 5.0 PIP: 44 Tube Feeding Amount: 45 I&O: Intake and Output 01/25/20 01/26/20 19:00 07:00 Intake Total 1781.00 ml 2071.75 ml Output Total 60 ml 60 ml Balance 1721.00 ml 2011.75 ml Intake IV Total 1521.00 ml 1556.75 ml Tube Feeding 110 ml 465 ml Other 150 ml 50 ml Output Urine Total 60 ml 60 ml # Bowel Movements 1 Labs: Laboratory Tests Test 01/25/20 20:15 01/26/20 02:35 01/26/20 06:17 01/26/20 08:12 POC Whole Blood Glucose Pending Pending White Blood Count 20.2 K/UL (4.8-10.8) H Red Blood Count 2.82 M/UL (4.70-6.10) L Hemoglobin 8.6 G/DL (14.2-18.0) L Hematocrit 27.2 % (42.0-52.0) L Mean Corpuscular Volume 96 FL (80-99) Mean Corpuscular Hemoglobin 30.6 PG (27.0-31.0) Mean Corpuscular Hemoglobin Concent 31.8 G/DL (32.0-36.0) L Red Cell Distribution Width 15.6 % (11.6-14.8) H Platelet Count 38 K/UL (150-450) #L Mean Platelet Volume 7.8 FL (6.5-10.1) Neutrophils (%) (Auto) % (45.0-75.0) Lymphocytes (%) (Auto) % (20.0-45.0) Monocytes (%) (Auto) % (1.0-10.0) Eosinophils (%) (Auto) % (0.0-3.0) Basophils (%) (Auto) % (0.0-2.0) Differential Total Cells Counted 100 Neutrophils % (Manual) 83 % (45-75) H Lymphocytes % (Manual) 12 % (20-45) L Monocytes % (Manual) 5 % (1-10) Eosinophils % (Manual) 0 % (0-3) Basophils % (Manual) 0 % (0-2) Band Neutrophils 0 % (0-8) Platelet Estimate Decreased L Platelet Morphology Normal Hypochromasia 2+ Anisocytosis 1+ Sodium Level 145 MMOL/L (136-145) Potassium Level 5.8 MMOL/L (3.5-5.1) H Chloride Level 111 MMOL/L (98-107) H Carbon Dioxide Level 21 MMOL/L (21-32) Anion Gap 13 mmol/L (5-15) Blood Urea Nitrogen 159 mg/dL (7-18) H Creatinine 4.6 MG/DL (0.55-1.30) H Estimat Glomerular Filtration Rate 12.3 mL/min (>60) Glucose Level 147 MG/DL (74-106) H Calcium Level 7.5 MG/DL (8.5-10.1) L Phosphorus Level 5.4 MG/DL (2.5-4.9) H Magnesium Level 2.0 MG/DL (1.8-2.4) Total Bilirubin 0.5 MG/DL (0.2-1.0) Aspartate Amino Transf (AST/SGOT) 47 U/L (15-37) H Alanine Aminotransferase (ALT/SGPT) 26 U/L (12-78) Alkaline Phosphatase 101 U/L (46-116) Total Creatine Kinase 268 U/L (26-308) C-Reactive Protein, Quantitative 25.1 mg/dL (0.00-0.90) H Total Protein 6.3 G/DL (6.4-8.2) L Albumin 0.9 G/DL (3.4-5.0) L Globulin 5.4 g/dL Albumin/Globulin Ratio 0.2 (1.0-2.7) L Random Amikacin Level Pending Digoxin Level 2.1 NG/ML (0.5-2.0) H Arterial Blood pH 7.349 (7.350-7.450) Arterial Blood Partial Pressure CO2 33.2 mmHg (35.0-45.0) L Arterial Blood Partial Pressure O2 86.7 mmHg (75.0-100.0) Arterial Blood HCO3 17.9 mmol/L (22.0-26.0) *L Arterial Blood Oxygen Saturation 95.3 % (95-100) Arterial Blood Base Excess -7.0 (-2-2) L Behzad Test Positive Dennis Woodall MD Jan 26, 2020 09:52
--- NOTE | 2020-01-26 13:06 | Nephrology Progress Note ---
Assessment/Plan Problem List: (1) FRIDA (acute kidney injury) (2) Sepsis (3) Ventilator dependent (4) Bilateral pleural effusion (5) Decubitus skin ulcer (6) Electrolyte imbalance Assessment: Hyperkalemia, hypernatremia Assessment FRIDA Dehydration, hypernatremia, hyperkalemia Anemia Chronic vent dependent, with superimposed acute component Bilateral pleural effusion Sepsis, leukocytosis, UTI Functional quadriplegia History of coronary artery disease and [place] Multiple decubiti Chronic malnutrition Plan January 25: Potassium remains elevated. Kayexalate given. TG level higher to 2.1. IV digoxin discontinued yesterday. Doing poorly. Continue present management. January 24: Potassium still high. Kayexalate every 6 hours ordered. Patient continues to do poorly. Digoxin level is 2, will hold IV digoxin for now. January 23: Potassium remains high. Kayexalate given. Bicitra started. Midodrin started. Patient DNR now. Continue per consultants. Overall prognosis poor. Hemodynamically unstable for dialysis treatment. Per order. Patient is doing poorly. No urine output. Labs reviewed. Discussed with RN and Miles. Kayexalate given for hyperkalemia. IV D5 and a half normal saline Pressors Antibiotics Skin care Continue per consultants Monitor renal parameters Avoid nephrotoxic's Patient now DNR. No candidate for dialysis treatment due to multiple medical issues, sepsis, poor prognosis. Subjective ROS Limited/Unobtainable: Yes Objective Objective Last 24 Hour Vital Signs Date Time Temp Pulse Resp B/P (MAP) Pulse Ox O2 Delivery O2 Flow Rate FiO2 01/26/20 12:00 30 01/26/20 11:00 111 28 126/54 (78) 95 01/26/20 10:30 108 30 84/46 (59) 96 01/26/20 10:00 111 30 90/46 (61) 96 01/26/20 10:00 90/46 01/26/20 09:30 109 32 88/46 (60) 95 01/26/20 09:00 87/46 01/26/20 09:00 99.2 112 33 87/46 (60) 94 01/26/20 08:09 109 01/26/20 08:00 Mechanical Ventilator 01/26/20 08:00 92/50 01/26/20 08:00 30 01/26/20 08:00 110 33 92/50 (64) 98 01/26/20 07:30 103 32 87/49 (62) 96 01/26/20 07:24 114 35 30 01/26/20 07:00 92/53 01/26/20 07:00 110 32 92/53 (66) 95 01/26/20 06:30 106 34 01/26/20 06:00 106/61 01/26/20 06:00 112 33 87/52 (64) 97 01/26/20 05:30 107 33 93/46 (62) 96 01/26/20 05:00 106/61 01/26/20 05:00 116 31 98/48 (65) 96 01/26/20 04:00 Mechanical Ventilator 01/26/20 04:00 109 01/26/20 04:00 112/60 01/26/20 04:00 98.9 112 31 100/52 (68) 97 01/26/20 04:00 30 01/26/20 03:30 112 31 90/46 (61) 96 01/26/20 03:00 123/52 01/26/20 03:00 101 99/46 (63) 95 01/26/20 02:47 108 31 30 01/26/20 02:30 104 32 96/62 (73) 94 01/26/20 02:00 110/56 01/26/20 02:00 107 32 101/52 (68) 96 01/26/20 01:30 108 33 107/79 (88) 94 01/26/20 01:00 98/55 01/26/20 01:00 103 31 122/54 (76) 96 01/26/20 00:45 103 31 122/54 (76) 96 01/26/20 00:37 105 32 124/53 (76) 95 01/26/20 00:30 105 32 96/55 (69) 95 01/26/20 00:09 105 34 123/63 (83) 95 01/26/20 00:04 99 32 86/52 (63) 94 01/26/20 00:03 101 30 56/42 (47) 94 01/26/20 00:00 99.4 100 29 85/44 (58) 94 01/26/20 00:00 30 01/26/20 00:00 124/53 7/23/20 00:00 Mechanical Ventilator 01/25/20 23:46 96/60 01/25/20 23:30 103 31 97/54 (68) 95 01/25/20 23:13 100 01/25/20 23:00 105 26 96/60 (72) 95 01/25/20 22:36 110 29 30 01/25/20 22:30 102 30 91/53 (66) 95 01/25/20 22:00 104 30 106/54 (71) 95 01/25/20 21:30 103 29 88/50 (63) 95 01/25/20 21:00 103 30 96/53 (67) 95 01/25/20 20:53 104 30 92/51 (65) 95 01/25/20 20:30 108 32 81/49 (60) 94 01/25/20 20:00 99.2 105 26 105/54 (71) 93 01/25/20 20:00 104 01/25/20 20:00 Mechanical Ventilator 01/25/20 20:00 30 01/25/20 19:57 102 35 95/54 (68) 96 01/25/20 19:54 101 37 73/44 (54) 95 01/25/20 19:38 107 28 140/51 (80) 78 01/25/20 19:33 88 30 48/27 (34) 77 01/25/20 19:32 91 32 30 01/25/20 19:30 90 27 61/48 (52) 95 01/25/20 19:00 101 32 110/63 (79) 93 01/25/20 18:45 100 34 81/51 (61) 97 01/25/20 18:30 100 32 71/50 (57) 97 01/25/20 18:00 101 34 95/52 (66) 96 01/25/20 17:30 99 32 93/55 (68) 95 01/25/20 17:00 100 34 85/59 (68) 93 01/25/20 16:30 98.4 100 33 99/54 (69) 96 01/25/20 16:10 100 01/25/20 16:00 30 01/25/20 16:00 Mechanical Ventilator 01/25/20 16:00 99 31 90/57 (68) 97 01/25/20 15:30 99 25 117/59 (78) 96 01/25/20 15:21 104 30 30 01/25/20 15:00 97 29 89/54 (66) 94 01/25/20 14:30 98 31 107/80 (89) 96 01/25/20 14:00 96 31 108/72 (84) 94 01/25/20 13:30 96 31 98/51 (67) 96 Intake and Output 01/25/20 01/26/20 19:00 07:00 Intake Total 1781.00 ml 2071.75 ml Output Total 60 ml 60 ml Balance 1721.00 ml 2011.75 ml Intake IV Total 1521.00 ml 1556.75 ml Tube Feeding 110 ml 465 ml Other 150 ml 50 ml Output Urine Total 60 ml 60 ml # Bowel Movements 1 Laboratory Tests 01/25/20 20:15: POC Whole Blood Glucose [Pending] 01/26/20 02:35: White Blood Count 20.2H, Red Blood Count 2.82L, Hemoglobin 8.6L, Hematocrit 27.2L, Mean Corpuscular Volume 96, Mean Corpuscular Hemoglobin 30.6, Mean Corpuscular Hemoglobin Concent 31.8L, Red Cell Distribution Width 15.6H, Platelet Count 38#L, Mean Platelet Volume 7.8, Neutrophils (%) (Auto) , Lymphocytes (%) (Auto) , Monocytes (%) (Auto) , Eosinophils (%) (Auto) , Basophils (%) (Auto) , Differential Total Cells Counted 100, Neutrophils % ( Manual) 83H, Lymphocytes % (Manual) 12L, Monocytes % (Manual) 5, Eosinophils % ( Manual) 0, Basophils % (Manual) 0, Band Neutrophils 0, Platelet Estimate DecreasedL, Platelet Morphology Normal, Hypochromasia 2+, Anisocytosis 1+, Sodium Level 145, Potassium Level 5.8H, Chloride Level 111H, Carbon Dioxide Level 21, Anion Gap 13, Blood Urea Nitrogen 159H, Creatinine 4.6H, Estimat Glomerular Filtration Rate 12.3, Glucose Level 147H, Calcium Level 7.5L, Phosphorus Level 5.4H, Magnesium Level 2.0, Total Bilirubin 0.5, Aspartate Amino Transf (AST/SGOT) 47H, Alanine Aminotransferase (ALT/SGPT) 26, Alkaline Phosphatase 101, Total Creatine Kinase 268, C-Reactive Protein, Quantitative 25.1H, Total Protein 6.3L, Albumin 0.9L, Globulin 5.4, Albumin/Globulin Ratio 0.2L, Random Amikacin Level [Pending], Digoxin Level 2.1H 01/26/20 06:17: POC Whole Blood Glucose [Pending] 01/26/20 08:12: Arterial Blood pH 7.349L, Arterial Blood Partial Pressure CO2 33.2L, Arterial Blood Partial Pressure O2 86.7, Arterial Blood HCO3 17.9*L, Arterial Blood Oxygen Saturation 95.3, Arterial Blood Base Excess -7.0L, Behzad Test Positive Height (Feet): 5 Height (Inches): 5.00 Weight (Pounds): 137 General Appearance: no apparent distress EENT: other Cardiovascular: tachycardia Respiratory/Chest: decreased breath sounds Abdomen: distended Ronnie Guevara MD Jan 26, 2020 13:05
[2020-01-26] MEDS ORDERED: Sodium Polystyrene Sulfonate 15gm Powder ORAL SCH (13:15)
--- NOTE | 2020-01-26 13:48 | General Progress Note ---
Assessment/Plan Problem List: (1) Severe anemia ICD Codes: D64.9 - Anemia, unspecified SNOMED: 108533169 (2) Encephalopathy acute ICD Codes: G93.40 - Encephalopathy, unspecified SNOMED: 25671430, 565679198 (3) ATN (acute tubular necrosis) ICD Codes: N17.0 - Acute kidney failure with tubular necrosis SNOMED: 42937797 (4) Feeding by G-tube ICD Codes: Z93.1 - Gastrostomy status SNOMED: 265714620, 429879703, 894488741 (5) Pneumonia ICD Codes: J18.9 - Pneumonia, unspecified organism SNOMED: 052047846 (6) Chronic respiratory failure ICD Codes: J96.10 - Chronic respiratory failure, unspecified whether with hypoxia or hypercapnia SNOMED: 02808588 Assessment/Plan: fu H&H prn blood transfusion abx per ID respiratory care icu care d/w surg, will hold GTF for now CT of the neck and chest will fu Subjective ROS Limited/Unobtainable: No Allergies: Coded Allergies: NSAIDS (NON-STEROIDAL ANTI-INFLAMMA (Unverified Allergy, Unknown, 11/27/18) PIPERACILLIN (Unverified Allergy, Unknown, 01/25/19) tolerates carbapenem TAZOBACTAM (Unverified Allergy, Unknown, 11/27/18) Uncoded Allergies: NSAID (Allergy, Unknown, 09/14/18) Objective Last 24 Hour Vital Signs Date Time Temp Pulse Resp B/P (MAP) Pulse Ox O2 Delivery O2 Flow Rate FiO2 01/26/20 13:00 105 29 100/53 (69) 94 01/26/20 12:00 30 01/26/20 11:24 115 22 30 01/26/20 11:00 111 28 126/54 (78) 95 01/26/20 10:30 108 30 84/46 (59) 96 01/26/20 10:00 111 30 90/46 (61) 96 01/26/20 10:00 90/46 01/26/20 09:30 109 32 88/46 (60) 95 01/26/20 09:00 87/46 01/26/20 09:00 99.2 112 33 87/46 (60) 94 01/26/20 08:09 109 01/26/20 08:00 Mechanical Ventilator 01/26/20 08:00 92/50 01/26/20 08:00 30 01/26/20 08:00 110 33 92/50 (64) 98 01/26/20 07:30 103 32 87/49 (62) 96 01/26/20 07:24 114 35 30 01/26/20 07:00 92/53 01/26/20 07:00 110 32 92/53 (66) 95 01/26/20 06:30 106 34 01/26/20 06:00 106/61 01/26/20 06:00 112 33 87/52 (64) 97 01/26/20 05:30 107 33 93/46 (62) 96 01/26/20 05:00 106/61 01/26/20 05:00 116 31 98/48 (65) 96 01/26/20 04:00 Mechanical Ventilator 01/26/20 04:00 109 01/26/20 04:00 112/60 01/26/20 04:00 98.9 112 31 100/52 (68) 97 01/26/20 04:00 30 01/26/20 03:30 112 31 90/46 (61) 96 01/26/20 03:00 123/52 01/26/20 03:00 101 99/46 (63) 95 01/26/20 02:47 108 31 30 01/26/20 02:30 104 32 96/62 (73) 94 01/26/20 02:00 110/56 01/26/20 02:00 107 32 101/52 (68) 96 01/26/20 01:30 108 33 107/79 (88) 94 01/26/20 01:00 98/55 01/26/20 01:00 103 31 122/54 (76) 96 01/26/20 00:45 103 31 122/54 (76) 96 01/26/20 00:37 105 32 124/53 (76) 95 01/26/20 00:30 105 32 96/55 (69) 95 01/26/20 00:09 105 34 123/63 (83) 95 01/26/20 00:04 99 32 86/52 (63) 94 01/26/20 00:03 101 30 56/42 (47) 94 01/26/20 00:00 99.4 100 29 85/44 (58) 94 01/26/20 00:00 30 01/26/20 00:00 124/53 01/26/20 00:00 Mechanical Ventilator 01/25/20 23:46 96/60 01/25/20 23:30 103 31 97/54 (68) 95 01/25/20 23:13 100 01/25/20 23:00 105 26 96/60 (72) 95 01/25/20 22:36 110 29 30 01/25/20 22:30 102 30 91/53 (66) 95 01/25/20 22:00 104 30 106/54 (71) 95 01/25/20 21:30 103 29 88/50 (63) 95 01/25/20 21:00 103 30 96/53 (67) 95 01/25/20 20:53 104 30 92/51 (65) 95 01/25/20 20:30 108 32 81/49 (60) 94 01/25/20 20:00 99.2 105 26 105/54 (71) 93 01/25/20 20:00 104 01/25/20 20:00 Mechanical Ventilator 01/25/20 20:00 30 01/25/20 19:57 102 35 95/54 (68) 96 01/25/20 19:54 101 37 73/44 (54) 95 01/25/20 19:38 107 28 140/51 (80) 78 01/25/20 19:33 88 30 48/27 (34) 77 01/25/20 19:32 91 32 30 01/25/20 19:30 90 27 61/48 (52) 95 01/25/20 19:00 101 32 110/63 (79) 93 01/25/20 18:45 100 34 81/51 (61) 97 01/25/20 18:30 100 32 71/50 (57) 97 20 18:00 101 34 95/52 (66) 96 01/25/20 17:30 99 32 93/55 (68) 95 01/25/20 17:00 100 34 85/59 (68) 93 01/25/20 16:30 98.4 100 33 99/54 (69) 96 01/25/20 16:10 100 01/25/20 16:00 30 01/25/20 16:00 Mechanical Ventilator 01/25/20 16:00 99 31 90/57 (68) 97 01/25/20 15:30 99 25 117/59 (78) 96 01/25/20 15:21 104 30 30 01/25/20 15:00 97 29 89/54 (66) 94 01/25/20 14:30 98 31 107/80 (89) 96 01/25/20 14:00 96 31 108/72 (84) 94 Intake and Output 01/25/20 01/26/20 19:00 07:00 Intake Total 1781.00 ml 2071.75 ml Output Total 60 ml 60 ml Balance 1721.00 ml 2011.75 ml Intake IV Total 1521.00 ml 1556.75 ml Tube Feeding 110 ml 465 ml Other 150 ml 50 ml Output Urine Total 60 ml 60 ml # Bowel Movements 1 Laboratory Tests 01/25/20 20:15: POC Whole Blood Glucose [Pending] 01/26/20 02:35: White Blood Count 20.2H, Red Blood Count 2.82L, Hemoglobin 8.6L, Hematocrit 27.2L, Mean Corpuscular Volume 96, Mean Corpuscular Hemoglobin 30.6, Mean Corpuscular Hemoglobin Concent 31.8L, Red Cell Distribution Width 15.6H, Platelet Count 38#L, Mean Platelet Volume 7.8, Neutrophils (%) (Auto) , Lymphocytes (%) (Auto) , Monocytes (%) (Auto) , Eosinophils (%) (Auto) , Basophils (%) (Auto) , Differential Total Cells Counted 100, Neutrophils % ( Manual) 83H, Lymphocytes % (Manual) 12L, Monocytes % (Manual) 5, Eosinophils % ( Manual) 0, Basophils % (Manual) 0, Band Neutrophils 0, Platelet Estimate DecreasedL, Platelet Morphology Normal, Hypochromasia 2+, Anisocytosis 1+, Sodium Level 145, Potassium Level 5.8H, Chloride Level 111H, Carbon Dioxide Level 21, Anion Gap 13, Blood Urea Nitrogen 159H, Creatinine 4.6H, Estimat Glomerular Filtration Rate 12.3, Glucose Level 147H, Calcium Level 7.5L, Phosphorus Level 5.4H, Magnesium Level 2.0, Total Bilirubin 0.5, Aspartate Amino Transf (AST/SGOT) 47H, Alanine Aminotransferase (ALT/SGPT) 26, Alkaline Phosphatase 101, Total Creatine Kinase 268, C-Reactive Protein, Quantitative 25.1H, Total Protein 6.3L, Albumin 0.9L, Globulin 5.4, Albumin/Globulin Ratio 0.2L, Random Amikacin Level [Pending], Digoxin Level 2.1H 01/26/20 06:17: POC Whole Blood Glucose [Pending] 01/26/20 08:12: Arterial Blood pH 7.349L, Arterial Blood Partial Pressure CO2 33.2L, Arterial Blood Partial Pressure O2 86.7, Arterial Blood HCO3 17.9*L, Arterial Blood Oxygen Saturation 95.3, Arterial Blood Base Excess -7.0L, Behzad Test Positive Height (Feet): 5 Height (Inches): 5.00 Weight (Pounds): 137 General Appearance: no apparent distress EENT: PERRL/EOMI Neck: supple Cardiovascular: normal rate Respiratory/Chest: accessory muscle use Abdomen: soft, hypoactive bowel sounds Extremities: non-tender Norm Thurston MD Jan 26, 2020 13:48
--- NOTE | 2020-01-26 14:03 | Surgery Progress Note ---
Surgery Progress Note Subjective Additional Comments significantly worsening drainage around trach discussed with team and GI plan CT eval trachesophgeal fistula ? abscess? Objective Last 24 Hour Vital Signs Date Time Temp Pulse Resp B/P (MAP) Pulse Ox O2 Delivery O2 Flow Rate FiO2 01/26/20 14:01 92/56 01/26/20 13:00 105 29 100/53 (69) 94 01/26/20 12:00 30 01/26/20 11:24 115 22 30 01/26/20 11:00 111 28 126/54 (78) 95 01/26/20 10:30 108 30 84/46 (59) 96 01/26/20 10:00 111 30 90/46 (61) 96 01/26/20 10:00 90/46 01/26/20 09:30 109 32 88/46 (60) 95 01/26/20 09:00 87/46 01/26/20 09:00 99.2 112 33 87/46 (60) 94 01/26/20 08:09 109 01/26/20 08:00 Mechanical Ventilator 01/26/20 08:00 92/50 01/26/20 08:00 30 01/26/20 08:00 110 33 92/50 (64) 98 01/26/20 07:30 103 32 87/49 (62) 96 01/26/20 07:24 114 35 30 01/26/20 07:00 92/53 01/26/20 07:00 110 32 92/53 (66) 95 01/26/20 06:30 106 34 01/26/20 06:00 106/61 01/26/20 06:00 112 33 87/52 (64) 97 01/26/20 05:30 107 33 93/46 (62) 96 01/26/20 05:00 106/61 01/26/20 05:00 116 31 98/48 (65) 96 01/26/20 04:00 Mechanical Ventilator 01/26/20 04:00 109 01/26/20 04:00 112/60 01/26/20 04:00 98.9 112 31 100/52 (68) 97 01/26/20 04:00 30 01/26/20 03:30 112 31 90/46 (61) 96 01/26/20 03:00 123/52 01/26/20 03:00 101 99/46 (63) 95 01/26/20 02:47 108 31 30 01/26/20 02:30 104 32 96/62 (73) 94 01/26/20 02:00 110/56 01/26/20 02:00 107 32 101/52 (68) 96 01/26/20 01:30 108 33 107/79 (88) 94 01/26/20 01:00 98/55 01/26/20 01:00 103 31 122/54 (76) 96 01/26/20 00:45 103 31 122/54 (76) 96 01/26/20 00:37 105 32 124/53 (76) 95 01/26/20 00:30 105 32 96/55 (69) 95 01/26/20 00:09 105 34 123/63 (83) 95 01/26/20 00:04 99 32 86/52 (63) 94 01/26/20 00:03 101 30 56/42 (47) 94 01/26/20 00:00 99.4 100 29 85/44 (58) 94 01/26/20 00:00 30 01/26/20 00:00 124/53 01/26/20 00:00 Mechanical Ventilator 01/25/20 23:46 96/60 01/25/20 23:30 103 31 97/54 (68) 95 01/25/20 23:13 100 01/25/20 23:00 105 26 96/60 (72) 95 01/25/20 22:36 110 29 30 01/25/20 22:30 102 30 91/53 (66) 95 01/25/20 22:00 104 30 106/54 (71) 95 01/25/20 21:30 103 29 88/50 (63) 95 01/25/20 21:00 103 30 96/53 (67) 95 01/25/20 20:53 104 30 92/51 (65) 95 01/25/20 20:30 108 32 81/49 (60) 94 01/25/20 20:00 99.2 105 26 105/54 (71) 93 20 20:00 104 01/25/20 20:00 Mechanical Ventilator 01/25/20 20:00 30 01/25/20 19:57 102 35 95/54 (68) 96 7/22/20 19:54 101 37 73/44 (54) 95 01/25/20 19:38 107 28 140/51 (80) 78 01/25/20 19:33 88 30 48/27 (34) 77 01/25/20 19:32 91 32 30 01/25/20 19:30 90 27 61/48 (52) 95 01/25/20 19:00 101 32 110/63 (79) 93 01/25/20 18:45 100 34 81/51 (61) 97 01/25/20 18:30 100 32 71/50 (57) 97 01/25/20 18:00 101 34 95/52 (66) 96 01/25/20 17:30 99 32 93/55 (68) 95 01/25/20 17:00 100 34 85/59 (68) 93 01/25/20 16:30 98.4 100 33 99/54 (69) 96 01/25/20 16:10 100 01/25/20 16:00 30 01/25/20 16:00 Mechanical Ventilator 01/25/20 16:00 99 31 90/57 (68) 97 01/25/20 15:30 99 25 117/59 (78) 96 01/25/20 15:21 104 30 30 01/25/20 15:00 97 29 89/54 (66) 94 01/25/20 14:30 98 31 107/80 (89) 96 I&O Intake and Output 01/25/20 01/26/20 19:00 07:00 Intake Total 1781.00 ml 2071.75 ml Output Total 60 ml 60 ml Balance 1721.00 ml 2011.75 ml Intake IV Total 1521.00 ml 1556.75 ml Tube Feeding 110 ml 465 ml Other 150 ml 50 ml Output Urine Total 60 ml 60 ml # Bowel Movements 1 Dressing: saturated Wound: other Drains: other Cardiovascular: RSR Respiratory: decreased breath sounds Abdomen: soft, present bowel sounds Extremities: no tenderness, no cyanosis Laboratory Tests Test 01/25/20 20:15 01/26/20 02:35 01/26/20 06:17 01/26/20 08:12 POC Whole Blood Glucose Pending Pending White Blood Count 20.2 K/UL (4.8-10.8) H Red Blood Count 2.82 M/UL (4.70-6.10) L Hemoglobin 8.6 G/DL (14.2-18.0) L Hematocrit 27.2 % (42.0-52.0) L Mean Corpuscular Volume 96 FL (80-99) Mean Corpuscular Hemoglobin 30.6 PG (27.0-31.0) Mean Corpuscular Hemoglobin Concent 31.8 G/DL (32.0-36.0) L Red Cell Distribution Width 15.6 % (11.6-14.8) H Platelet Count 38 K/UL (150-450) #L Mean Platelet Volume 7.8 FL (6.5-10.1) Neutrophils (%) (Auto) % (45.0-75.0) Lymphocytes (%) (Auto) % (20.0-45.0) Monocytes (%) (Auto) % (1.0-10.0) Eosinophils (%) (Auto) % (0.0-3.0) Basophils (%) (Auto) % (0.0-2.0) Differential Total Cells Counted 100 Neutrophils % (Manual) 83 % (45-75) H Lymphocytes % (Manual) 12 % (20-45) L Monocytes % (Manual) 5 % (1-10) Eosinophils % (Manual) 0 % (0-3) Basophils % (Manual) 0 % (0-2) Band Neutrophils 0 % (0-8) Platelet Estimate Decreased L Platelet Morphology Normal Hypochromasia 2+ Anisocytosis 1+ Sodium Level 145 MMOL/L (136-145) Potassium Level 5.8 MMOL/L (3.5-5.1) H Chloride Level 111 MMOL/L (98-107) H Carbon Dioxide Level 21 MMOL/L (21-32) Anion Gap 13 mmol/L (5-15) Blood Urea Nitrogen 159 mg/dL (7-18) H Creatinine 4.6 MG/DL (0.55-1.30) H Estimat Glomerular Filtration Rate 12.3 mL/min (>60) Glucose Level 147 MG/DL (74-106) H Calcium Level 7.5 MG/DL (8.5-10.1) L Phosphorus Level 5.4 MG/DL (2.5-4.9) H Magnesium Level 2.0 MG/DL (1.8-2.4) Total Bilirubin 0.5 MG/DL (0.2-1.0) Aspartate Amino Transf (AST/SGOT) 47 U/L (15-37) H Alanine Aminotransferase (ALT/SGPT) 26 U/L (12-78) Alkaline Phosphatase 101 U/L (46-116) Total Creatine Kinase 268 U/L (26-308) C-Reactive Protein, Quantitative 25.1 mg/dL (0.00-0.90) H Total Protein 6.3 G/DL (6.4-8.2) L Albumin 0.9 G/DL (3.4-5.0) L Globulin 5.4 g/dL Albumin/Globulin Ratio 0.2 (1.0-2.7) L Random Amikacin Level Pending Digoxin Level 2.1 NG/ML (0.5-2.0) H Arterial Blood pH 7.349 (7.350-7.450) Arterial Blood Partial Pressure CO2 33.2 mmHg (35.0-45.0) L Arterial Blood Partial Pressure O2 86.7 mmHg (75.0-100.0) Arterial Blood HCO3 17.9 mmol/L (22.0-26.0) *L Arterial Blood Oxygen Saturation 95.3 % (95-100) Arterial Blood Base Excess -7.0 (-2-2) L Behzad Test Positive Plan Problems: (1) Dehydration (2) Urinary tract infection (3) Ventilator dependent (4) Bilateral pleural effusion (5) Decubitus skin ulcer Assessment & Plan: Pt presented on admission with in grossly unkempt state, with Contractures and multiple Pressure injuries.Skin turgor is poor. Color is dusky. Generalized dry,scaly skin. Gastrostomy stoma is eroded and oozing moderate amt malodorous,Black,mud consistency exudate. Clusters of Unstageabloe Pressure injury Thoracic Spine. Base of wound has multiple small islands of slough with soft erythematous bridges giving wound appearance of multiple wounds. Area measuring (L)4cm x (W)3.6cm. In close proximity, to L of thoracic spine is a Partial thickness Pressure injury(L)5cm x (W)3.5cm. Base of wound is cade with macerated borders.Small amt sanguineous exudate noted. Resolving Full thickness 4 Pressure injury R Trochanter(L)0.7cm x (W)1.2cm, slight tunneled area at 11o'clock by 0.3cm. Surrounding pink epithelial bordered by hyperpigmentation. NO odor or exudate noted. Partial thickness shearing noted over Previously compromised skin (L)9cm x (W) 10.5cm. Base of wound is erythematous with multiple Scattered satellite lesions that are oozing sanguineous exudate. Unstageable Pressure injury distally, medial R Tibia(L)1.3cm x (W)1.1 cm . Base of wound is 100% yellow slough with marginal erythematous borders. No odor or exudate noted. Xerosis skin periwound. Pressure injury R Hallux. Base of wound is 40% dry eschar ,60% pink epithelial. No exudate noted. No erythema or fluctuance periwound. R Heel is boggy with non-blanchable erythema. Wound Plantar R foot(L)0.6cm x (W)0.8cm. 100% slough at base of wound . Marginal erythema along edges. Periwound is fluctuant and erythematous. At web space between R 1st and 2nd metatarsals is a Partial Thickness wound that is cade and oozing small amt sanguineous exudate. At Plantar aspect of R 3rd metatarsal noted to be oozing small amt Sanguineous exudate. Assessment of wound is not fully appreciated secondary to clubbing of metatarsals. Swabbed with Betadine and small gauze pressure drsg applied. Resolving Pressure Injury L Heel(L)6.5cm x (W)5cm. Base of wound is 90% pink epithelial, 10% dry eschar. NO odor or exudate noted . Scattered small dry,black scabs noted to R and L dorsal aspects feet ,including dorsal aspects of metatarsals both feet. Cleanse wounds Thoracic Spine with Saline. Apply TheraHoney. Apply Cavilon Skin Barrier Periwound. Cover with Optifoam drsg.Change every 3 days and prn. Apply Moisture Barrier Paste to Buttocks. Cover with Optifoam drsg. Change every 3 days and prn. Apply Betadine to wounds both feet. Cover with Abd pads and wrap each foot with Kerlix drsg. Wash GT site with Soap and Water and apply Loose Gauze drsg Daily and prn. Cleanse wound R trochanter with saline. Apply Therahoney,Apply Cavilon Periwound. Cover with Optifoam drsg. Change every 3 days and prn. Cleanse wounds L hip and L trochanter with Saline. Apply Therahoney. Apply Cavilon periwound .Cover with Optifoam drsg every 3 days and prn. Cleanse wounds L scapula with Saline. Apply TheraHoney. Apply Cavilon periwound.Cover with Optifoam drsg every 3 days and prn. Apply Triad paste to sacrum ,groin and scrotum with each Incontinence care. Cleanse wounds R and L foot with Saline. Apply TheraHoney. Cover wounds with Abd pads and wrap both feet with Kerlix gauze every 3 days and prn. Air Fluidized mattress. Reposition at least every 2hours or as tolerated. Place pillow between knees. Off-load heels with pillow. nutritional; optimization (6) funtional quadriplegia (7) Sepsis Assessment & Plan: labs reviewed on abx cxr noted unchanged wean as tolerated tf anticoag lira will monitor worsening drainage around trach possible fistula vs abscess CT pending (8) Chronic respiratory failure (9) Pneumonia (10) Acute on chronic respiratory failure Assessment & Plan: Bilateral interstitial opacities, left basilar pleural fluid and/or consolidation, left lung volume loss appear unchanged. Tracheostomy remains. 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 2) Swallowing difficulty r/t respiratory failure as evidenced by pt is trach/ vent dep and GT dependent. CURRENT TF:NPO ENTERAL NUTRITION RECOMMENDATIONS: Nepro @ 45ml/hr x 24 hrs to provide 1080ml, 1944kcal, 87g prot, 785ml free water FEED W/ HEMODYNAMIC STABILITY -> Rec Nepro at this time due to ARF, K consistently elev, now 6.2* -> Initiate Nepro @ 15ml/hr x 6hrs, advance 10ml q 4-6 hrs as tolerated to goal rate -> HOB over 30 degrees/ water flush per MD Without hemodynamic stability, rec trophic feeding of Nepro @ 5ml/hr x 24hrs ADDITIONAL RECOMMENDATIONS: * PER SNF: HT=72 inches, KS=200ggq (01/08) vs EMR HT= 65" inches and GP=545aul -> RECALIBRATE BEDSCALE * Monitor renal fxn and lytes, need for continued rec for Nepro * Monitor HD stability: NE @ 6mcg * Wound healing: add vit C 500mg BID, [place] BID w/ TF order * Consider accuchecks for close BG monitoring for hypoglycemia -> cont D5 while pt NPO (13) Protein-calorie malnutrition, severe (14) At high risk for aspiration (15) ATN (acute tubular necrosis) (16) Severe anemia (17) Encephalopathy acute Stanislav Avelar Jan 26, 2020 14:03
--- NOTE | 2020-01-26 14:16 | Infectious Diseases Prog Note ---
Assessment/Plan Assessment: Septic Shock- increased pressors requirements 01/25 High grade Gram neg bacteremia- from UTI and obstructive uropathy -01/21 BCx 02/10 Citrobacter koseri (S Cefepime, Meropenem) Staph bacteremia -01/21 10/11 Staph haemolyticus; 01/23 BCx / GPC clusters Pneumonia- COVID neg x2 (on same day) Acute on chronic respiratory failure - SP trach/vent dependant -01/23 CXR: Again demonstrated is interstitial disease throughout the left lung as well as right perihilar and basilar interstitial opacities. There is probably a small right pleural effusion. -sp cx P , mirabilis (S Zosyn, Meropenem) -01/21 rapid COVID neg, COVID NAAT neg UTI -u/a wbc 10-15, nit neg, leuk +3; ucx >100k MDR P. stuarti (S Cefepime, Meropenem , Zosyn) Low grade fever, SP Severe leukocytosis; improving Hypernatremia Hyperkalemia FRIDA metabolic acidosis -Renal US: Limited exam, as described, poor visualization of the left kidney. Right and probably left hydronephrosis. Probable bladder mass. 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 UTI and bacteremia 11/2018 COPD Dementia non verbal functional quadriplegia chronic resp failure s/p trach/vent dependent SNF resident ([facility]) Plan: -Daptomycin #2 (abx d #11/09-) for staph bacteremia -monitor CPK -Dc empiric Amikacin #5 -Continue Meropenem #11/12-14 for UTI/bacteremia and PNA -hx of MDRO -01/23 SP IV Vancomycin #3 -01/21 Flagyl x1, Levaquin x 1 -f/u cx -Monitor CBC/CMP, temperatures -COVID19 neg x2 (PCR and rapid); will keep isolation for now until afebrile > 72hrs -ICU/trach/PEG care -aspiration precautions -poor prognosis -Bcx x2 -CT neck/chest to eval for possible esophagea-tracheal fistula' -2d echo Thank you for consulting [facility]. Will continue to follow along with you. Discussed wit RN, Dr Avelar and pharmacist. Subjective Allergies: Coded Allergies: NSAIDS (NON-STEROIDAL ANTI-INFLAMMA (Unverified Allergy, Unknown, 11/27/18) PIPERACILLIN (Unverified Allergy, Unknown, 01/25/19) tolerates carbapenem TAZOBACTAM (Unverified Allergy, Unknown, 11/27/18) Uncoded Allergies: NSAID (Allergy, Unknown, 09/14/18) afebrile >48hrs Fio2 30% wbc overall improved levophed increased to 17 repeat Bcx p noted to have significant output around trach that has the appearance of tube feeds Objective Last 24 Hour Vital Signs Date Time Temp Pulse Resp B/P (MAP) Pulse Ox O2 Delivery O2 Flow Rate FiO2 01/26/20 13:00 105 29 100/53 (69) 94 01/26/20 12:00 30 01/26/20 11:24 115 22 30 01/26/20 11:00 111 28 126/54 (78) 95 01/26/20 10:30 108 30 84/46 (59) 96 01/26/20 10:00 111 30 90/46 (61) 96 01/26/20 10:00 90/46 01/26/20 09:30 109 32 88/46 (60) 95 01/26/20 09:00 87/46 01/26/20 09:00 99.2 112 33 87/46 (60) 94 01/26/20 08:09 109 01/26/20 08:00 Mechanical Ventilator 01/26/20 08:00 92/50 01/26/20 08:00 30 01/26/20 08:00 110 33 92/50 (64) 98 01/26/20 07:30 103 32 87/49 (62) 96 01/26/20 07:24 114 35 30 01/26/20 07:00 92/53 01/26/20 07:00 110 32 92/53 (66) 95 01/26/20 06:30 106 34 01/26/20 06:00 106/61 01/26/20 06:00 112 33 87/52 (64) 97 01/26/20 05:30 107 33 93/46 (62) 96 01/26/20 05:00 106/61 01/26/20 05:00 116 31 98/48 (65) 96 01/26/20 04:00 Mechanical Ventilator 01/26/20 04:00 109 01/26/20 04:00 112/60 01/26/20 04:00 98.9 112 31 100/52 (68) 97 01/26/20 04:00 30 01/26/20 03:30 112 31 90/46 (61) 96 01/26/20 03:00 123/52 01/26/20 03:00 101 99/46 (63) 95 01/26/20 02:47 108 31 30 01/26/20 02:30 104 32 96/62 (73) 94 01/26/20 02:00 110/56 01/26/20 02:00 107 32 101/52 (68) 96 01/26/20 01:30 108 33 107/79 (88) 94 01/26/20 01:00 98/55 01/26/20 01:00 103 31 122/54 (76) 96 01/26/20 00:45 103 31 122/54 (76) 96 01/26/20 00:37 105 32 124/53 (76) 95 01/26/20 00:30 105 32 96/55 (69) 95 01/26/20 00:09 105 34 123/63 (83) 95 01/26/20 00:04 99 32 86/52 (63) 94 01/26/20 00:03 101 30 56/42 (47) 94 01/26/20 00:00 99.4 100 29 85/44 (58) 94 01/26/20 00:00 30 01/26/20 00:00 124/53 01/26/20 00:00 Mechanical Ventilator 01/25/20 23:46 96/60 01/25/20 23:30 103 31 97/54 (68) 95 01/25/20 23:13 100 01/25/20 23:00 105 26 96/60 (72) 95 01/25/20 22:36 110 29 30 01/25/20 22:30 102 30 91/53 (66) 95 01/25/20 22:00 104 30 106/54 (71) 95 01/25/20 21:30 103 29 88/50 (63) 95 01/25/20 21:00 103 30 96/53 (67) 95 01/25/20 20:53 104 30 92/51 (65) 95 01/25/20 20:30 108 32 81/49 (60) 94 01/25/20 20:00 99.2 105 26 105/54 (71) 93 01/25/20 20:00 104 01/25/20 20:00 Mechanical Ventilator 01/25/20 20:00 30 01/25/20 19:57 102 35 95/54 (68) 96 01/25/20 19:54 101 37 73/44 (54) 95 01/25/20 19:38 107 28 140/51 (80) 78 01/25/20 19:33 88 30 48/27 (34) 77 01/25/20 19:32 91 32 30 01/25/20 19:30 90 27 61/48 (52) 95 01/25/20 19:00 101 32 110/63 (79) 93 01/25/20 18:45 100 34 81/51 (61) 97 01/25/20 18:30 100 32 71/50 (57) 97 01/25/20 18:00 101 34 95/52 (66) 96 01/25/20 17:30 99 32 93/55 (68) 95 01/25/20 17:00 100 34 85/59 (68) 93 01/25/20 16:30 98.4 100 33 99/54 (69) 96 01/25/20 16:10 100 01/25/20 16:00 30 01/25/20 16:00 Mechanical Ventilator 01/25/20 16:00 99 31 90/57 (68) 97 01/25/20 15:30 99 25 117/59 (78) 96 01/25/20 15:21 104 30 30 01/25/20 15:00 97 29 89/54 (66) 94 01/25/20 14:30 98 31 107/80 (89) 96 01/25/20 14:00 96 31 108/72 (84) 94 Height (Feet): 5 Height (Inches): 5.00 Weight (Pounds): 137 General Appearance: lethargic, Chronically Ill Head: normocephalic ENT: dry mucus membranes, trach to vent Neck: limited range of motion, tracheotomy Respiratory: decreased breath sounds Cardiovascular #1: Tachycardic Gastrointestinal: non tender, soft, GT tube in place Microbiology Date/Time Source Procedure Growth Status 7/21/20 09:05 Blood Blood Culture - Preliminary Resulted 01/24/20 08:55 Blood Blood Culture - Preliminary NO GROWTH AFTER 24 HOURS Resulted Laboratory Tests Test 01/25/20 20:15 01/26/20 02:35 01/26/20 06:17 01/26/20 08:12 POC Whole Blood Glucose Pending Pending White Blood Count 20.2 K/UL (4.8-10.8) H Red Blood Count 2.82 M/UL (4.70-6.10) L Hemoglobin 8.6 G/DL (14.2-18.0) L Hematocrit 27.2 % (42.0-52.0) L Mean Corpuscular Volume 96 FL (80-99) Mean Corpuscular Hemoglobin 30.6 PG (27.0-31.0) Mean Corpuscular Hemoglobin Concent 31.8 G/DL (32.0-36.0) L Red Cell Distribution Width 15.6 % (11.6-14.8) H Platelet Count 38 K/UL (150-450) #L Mean Platelet Volume 7.8 FL (6.5-10.1) Neutrophils (%) (Auto) % (45.0-75.0) Lymphocytes (%) (Auto) % (20.0-45.0) Monocytes (%) (Auto) % (1.0-10.0) Eosinophils (%) (Auto) % (0.0-3.0) Basophils (%) (Auto) % (0.0-2.0) Differential Total Cells Counted 100 Neutrophils % (Manual) 83 % (45-75) H Lymphocytes % (Manual) 12 % (20-45) L Monocytes % (Manual) 5 % (1-10) Eosinophils % (Manual) 0 % (0-3) Basophils % (Manual) 0 % (0-2) Band Neutrophils 0 % (0-8) Platelet Estimate Decreased L Platelet Morphology Normal Hypochromasia 2+ Anisocytosis 1+ Sodium Level 145 MMOL/L (136-145) Potassium Level 5.8 MMOL/L (3.5-5.1) H Chloride Level 111 MMOL/L (98-107) H Carbon Dioxide Level 21 MMOL/L (21-32) Anion Gap 13 mmol/L (5-15) Blood Urea Nitrogen 159 mg/dL (7-18) H Creatinine 4.6 MG/DL (0.55-1.30) H Estimat Glomerular Filtration Rate 12.3 mL/min (>60) Glucose Level 147 MG/DL (74-106) H Calcium Level 7.5 MG/DL (8.5-10.1) L Phosphorus Level 5.4 MG/DL (2.5-4.9) H Magnesium Level 2.0 MG/DL (1.8-2.4) Total Bilirubin 0.5 MG/DL (0.2-1.0) Aspartate Amino Transf (AST/SGOT) 47 U/L (15-37) H Alanine Aminotransferase (ALT/SGPT) 26 U/L (12-78) Alkaline Phosphatase 101 U/L (46-116) Total Creatine Kinase 268 U/L (26-308) C-Reactive Protein, Quantitative 25.1 mg/dL (0.00-0.90) H Total Protein 6.3 G/DL (6.4-8.2) L Albumin 0.9 G/DL (3.4-5.0) L Globulin 5.4 g/dL Albumin/Globulin Ratio 0.2 (1.0-2.7) L Random Amikacin Level Pending Digoxin Level 2.1 NG/ML (0.5-2.0) H Arterial Blood pH 7.349 (7.350-7.450) Arterial Blood Partial Pressure CO2 33.2 mmHg (35.0-45.0) L Arterial Blood Partial Pressure O2 86.7 mmHg (75.0-100.0) Arterial Blood HCO3 17.9 mmol/L (22.0-26.0) *L Arterial Blood Oxygen Saturation 95.3 % (95-100) Arterial Blood Base Excess -7.0 (-2-2) L Behzad Test Positive Current Medications Medications (Trade) Dose Ordered Sig/Margarette Route PRN Reason Start Time Stop Time Status Last Admin Dose Admin Acetaminophen (Tylenol) 650 mg Q4H PRN ORAL fever 01/22/20 08:15 02/21/20 08:14 01/24/20 06:44 Albuterol/ Ipratropium (Albuterol/ Ipratropium) 3 ml Q4H PRN HHN Shortness of Breath 01/22/20 08:15 01/27/20 08:14 Amikacin Protocol (Amikacin pharmacy to dose) 1 ea DAILY PRN MISC . 01/22/20 13:45 02/21/20 13:44 Daptomycin 400 mg/ Sodium Chloride 55 ml @ 100 mls/hr Q48H IV 01/25/20 12:00 02/01/20 11:59 01/25/20 12:26 Heparin Sodium (Porcine) (Heparin 5000 units/ml) 5,000 units EVERY 12 HOURS SUBQ 01/22/20 21:00 03/07/20 20:59 01/24/20 20:56 Lorazepam (Ativan 2mg/ml 1ml) 2 mg Q2H PRN IV For Anxiety 01/22/20 08:15 01/29/20 08:14 Meropenem 500 mg/ Sodium Chloride 55 ml @ 110 mls/hr Q12H IVPB 01/22/20 14:00 01/27/20 13:59 01/26/20 13:33 Midodrine (Pro-Amatine) 10 mg Q8HR GT 01/24/20 14:00 04/23/20 13:59 01/26/20 13:33 Morphine Sulfate (Morphine Sulfate) 4 mg Q4H PRN IVP Severe Pain (Pain Scale 7-10) 01/22/20 08:15 01/29/20 08:14 Norepinephrine Bitartrate 8 mg/ Dextrose 500 ml @ 0 mls/hr Q24H IV 01/26/20 00:00 02/25/20 00:00 01/26/20 06:00 Ondansetron HCl (Zofran) 4 mg Q6H PRN IVP Nausea & Vomiting 01/22/20 08:15 02/21/20 08:14 Pantoprazole (Protonix) 40 mg Q12HR IV 01/22/20 09:30 02/21/20 09:29 01/26/20 08:21 Polyethylene Glycol (Miralax) 17 gm DAILYPRN PRN ORAL Constipation 01/22/20 08:15 02/21/20 08:14 Sodium Bicarbonate 100 ml/Dextrose/ Sodium Chloride 1,100 ml @ 100 mls/hr Q11H IV 01/25/20 09:00 02/24/20 08:59 01/26/20 05:52 Sodium Polystyrene Sulfonate (Kayexalate) 30 gm BID ORAL 01/26/20 18:00 01/28/20 17:59 Sodium Polystyrene Sulfonate (Kayexalate) 45 gm ONCE ORAL 01/26/20 13:15 01/26/20 15:30 01/26/20 13:33 Sodium Citrate (Bicitra) 30 ml EVERY 6 HOURS GT 01/24/20 18:00 02/23/20 17:59 01/26/20 11:35 Lilly Dorantes M.D. Jan 26, 2020 14:16
[2020-01-26] MEDS: Sodium Polystyrene Sulfonate 15gm Powder ORAL SCH (17:31)
--- NOTE | 2020-01-26 17:35 | Internal Med Progress Note ---
Subjective Date of Service: Jan 26, 2020 Physician Name Bunny Morocho Attending Physician Danis Wolfe MD Current Medications Medications (Trade) Dose Ordered Sig/Margarette Route PRN Reason Start Time Stop Time Status Last Admin Dose Admin Acetaminophen (Tylenol) 650 mg Q4H PRN ORAL fever 01/22/20 08:15 02/21/20 08:14 01/24/20 06:44 Albuterol/ Ipratropium (Albuterol/ Ipratropium) 3 ml Q4H PRN HHN Shortness of Breath 01/22/20 08:15 01/27/20 08:14 Daptomycin 400 mg/ Sodium Chloride 55 ml @ 100 mls/hr Q48H IV 01/25/20 12:00 02/01/20 11:59 01/25/20 12:26 Heparin Sodium (Porcine) (Heparin 5000 units/ml) 5,000 units EVERY 12 HOURS SUBQ 01/22/20 21:00 03/07/20 20:59 01/24/20 20:56 Lorazepam (Ativan 2mg/ml 1ml) 2 mg Q2H PRN IV For Anxiety 01/22/20 08:15 01/29/20 08:14 Meropenem 500 mg/ Sodium Chloride 55 ml @ 110 mls/hr Q12H IVPB 01/22/20 14:00 01/31/20 23:59 01/26/20 13:33 Midodrine (Pro-Amatine) 10 mg Q8HR GT 01/24/20 14:00 04/23/20 13:59 01/26/20 13:33 Morphine Sulfate (Morphine Sulfate) 4 mg Q4H PRN IVP Severe Pain (Pain Scale 7-10) 01/22/20 08:15 01/29/20 08:14 Norepinephrine Bitartrate 8 mg/ Dextrose 500 ml @ 0 mls/hr Q24H IV 01/26/20 00:00 02/25/20 00:00 01/26/20 14:01 Ondansetron HCl (Zofran) 4 mg Q6H PRN IVP Nausea & Vomiting 01/22/20 08:15 02/21/20 08:14 Pantoprazole (Protonix) 40 mg Q12HR IV 01/22/20 09:30 02/21/20 09:29 01/26/20 08:21 Polyethylene Glycol (Miralax) 17 gm DAILYPRN PRN ORAL Constipation 01/22/20 08:15 02/21/20 08:14 Sodium Bicarbonate 100 ml/Dextrose/ Sodium Chloride 1,100 ml @ 100 mls/hr Q11H IV 01/25/20 09:00 02/24/20 08:59 01/26/20 05:52 Sodium Polystyrene Sulfonate (Kayexalate) 30 gm BID ORAL 01/26/20 18:00 01/28/20 17:59 01/26/20 17:31 Sodium Citrate (Bicitra) 30 ml EVERY 6 HOURS GT 01/24/20 18:00 02/23/20 17:59 01/26/20 17:31 Allergies: Coded Allergies: NSAIDS (NON-STEROIDAL ANTI-INFLAMMA (Unverified Allergy, Unknown, 11/27/18) PIPERACILLIN (Unverified Allergy, Unknown, 01/25/19) tolerates carbapenem TAZOBACTAM (Unverified Allergy, Unknown, 11/27/18) Uncoded Allergies: NSAID (Allergy, Unknown, 09/14/18) ROS Limited/Unobtainable: Yes Subjective 84 YO M admitted with respiratory failure. Now pneumonia and hypotension. intubated and sedated. Cover for Int Yonis-DR Wolfe. ICU Objective Last Vital Signs Date Time Temp Pulse Resp B/P (MAP) Pulse Ox O2 Delivery O2 Flow Rate FiO2 01/26/20 17:00 104 27 92/48 (63) 92 01/26/20 16:00 30 01/26/20 16:00 Mechanical Ventilator 01/26/20 12:00 99.3 01/25/20 07:00 30.0 Laboratory Tests Test 01/25/20 20:15 01/26/20 02:35 01/26/20 06:17 01/26/20 08:12 POC Whole Blood Glucose Pending Pending White Blood Count 20.2 K/UL (4.8-10.8) H Red Blood Count 2.82 M/UL (4.70-6.10) L Hemoglobin 8.6 G/DL (14.2-18.0) L Hematocrit 27.2 % (42.0-52.0) L Mean Corpuscular Volume 96 FL (80-99) Mean Corpuscular Hemoglobin 30.6 PG (27.0-31.0) Mean Corpuscular Hemoglobin Concent 31.8 G/DL (32.0-36.0) L Red Cell Distribution Width 15.6 % (11.6-14.8) H Platelet Count 38 K/UL (150-450) #L Mean Platelet Volume 7.8 FL (6.5-10.1) Neutrophils (%) (Auto) % (45.0-75.0) Lymphocytes (%) (Auto) % (20.0-45.0) Monocytes (%) (Auto) % (1.0-10.0) Eosinophils (%) (Auto) % (0.0-3.0) Basophils (%) (Auto) % (0.0-2.0) Differential Total Cells Counted 100 Neutrophils % (Manual) 83 % (45-75) H Lymphocytes % (Manual) 12 % (20-45) L Monocytes % (Manual) 5 % (1-10) Eosinophils % (Manual) 0 % (0-3) Basophils % (Manual) 0 % (0-2) Band Neutrophils 0 % (0-8) Platelet Estimate Decreased L Platelet Morphology Normal Hypochromasia 2+ Anisocytosis 1+ Sodium Level 145 MMOL/L (136-145) Potassium Level 5.8 MMOL/L (3.5-5.1) H Chloride Level 111 MMOL/L (98-107) H Carbon Dioxide Level 21 MMOL/L (21-32) Anion Gap 13 mmol/L (5-15) Blood Urea Nitrogen 159 mg/dL (7-18) H Creatinine 4.6 MG/DL (0.55-1.30) H Estimat Glomerular Filtration Rate 12.3 mL/min (>60) Glucose Level 147 MG/DL (74-106) H Calcium Level 7.5 MG/DL (8.5-10.1) L Phosphorus Level 5.4 MG/DL (2.5-4.9) H Magnesium Level 2.0 MG/DL (1.8-2.4) Total Bilirubin 0.5 MG/DL (0.2-1.0) Aspartate Amino Transf (AST/SGOT) 47 U/L (15-37) H Alanine Aminotransferase (ALT/SGPT) 26 U/L (12-78) Alkaline Phosphatase 101 U/L (46-116) Total Creatine Kinase 268 U/L (26-308) C-Reactive Protein, Quantitative 25.1 mg/dL (0.00-0.90) H Total Protein 6.3 G/DL (6.4-8.2) L Albumin 0.9 G/DL (3.4-5.0) L Globulin 5.4 g/dL Albumin/Globulin Ratio 0.2 (1.0-2.7) L Random Amikacin Level 12.8 MG/L Digoxin Level 2.1 NG/ML (0.5-2.0) H Arterial Blood pH 7.349 (7.350-7.450) Arterial Blood Partial Pressure CO2 33.2 mmHg (35.0-45.0) L Arterial Blood Partial Pressure O2 86.7 mmHg (75.0-100.0) Arterial Blood HCO3 17.9 mmol/L (22.0-26.0) *L Arterial Blood Oxygen Saturation 95.3 % (95-100) Arterial Blood Base Excess -7.0 (-2-2) L Behzad Test Positive Microbiology Date/Time Source Procedure Growth Status 01/24/20 09:05 Blood Blood Culture - Preliminary Resulted 01/24/20 08:55 Blood Blood Culture - Preliminary NO GROWTH AFTER 24 HOURS Resulted Intake and Output 01/25/20 01/26/20 19:00 07:00 Intake Total 1781.00 ml 2071.75 ml Output Total 60 ml 60 ml Balance 1721.00 ml 2011.75 ml Intake IV Total 1521.00 ml 1556.75 ml Tube Feeding 110 ml 465 ml Other 150 ml 50 ml Output Urine Total 60 ml 60 ml # Bowel Movements 1 Objective PHYSICAL EXAMINATION: GENERAL: The patient is contracted, thin-appearing male, in no apparent distress. HEENT: Eyes, pupils are equal and responsive to light and accommodation. Extraocular movements are intact. NECK: Supple without lymphadenopathy. There is trachea midline noted. There is no erythema about the trachea. CHEST: Mech vent; Decreased breath sounds at bilateral bases with expiratory wheezes, otherwise without rales. CARDIOVASCULAR EXAM: Tachycardic, regular rate. S1, S2 normal without murmurs, rubs, or gallops. ABDOMEN: Soft, nontender, and nondistended. Positive bowel sounds. No evidence of hepatosplenomegaly. Currently, no rebound or guarding noted. EXTREMITIES: Negative for clubbing, cyanosis, or edema. RECTAL/GENITAL: Not performed. NEUROLOGIC: Unable to assess. Assessment/Plan Assessment/Plan ASSESSMENT: This is an 84-year-old male. 1. Hypoxemic respiratory failure. 2. Pneumonia=proteus mirabilis 3. Dysphagia. 4. Functional quadriplegia. 5. Alzheimer's dementia. 6. Dwioa-rb-ccuzlnj renal failure. 7. Sepsis=citrobacter 8. Hyperkalemia TREATMENT: 1. Hypoxemic respiratory failure/pneumonia. A Pulmonary consultation has been obtained with Dr. Dennis Woodall. The patient is currently intubated in the intensive care unit. 2. Antibiotics= meropenem and Daptomycin. ID=Dr Dorantes. A rapid COVID-19 test was reported as negative. 2. History of dysphagia. The patient is status post PEG placement. 3. Functional quadriplegia. 4. Alzheimer's dementia. 5. Zudam-ed-rliiqth renal failure/hyperkalemia A Nephrology consultation has been obtained with Dr. Ronnie Guevara. Continue Bunny Adams MD Jan 26, 2020 17:35
--- NOTE | 2020-01-26 19:55 | Cardiology Progress Note ---
Assessment/Plan Assessment/Plan 1. Septic shock. 2. citrobacter bacteremia 3. Respiratory failure, acute on chronic. 4. Pneumonia. 5. Chronic respiratory failure. 6. Atrial fibrillation, paroxysmal in nature. 7. Contracted extremities. 8. Decubitus ulcers. 9. Hypernatremia. 10. Renal failure. 11. thrombocytopenia now in sinus still tele persoanlly reviewed has short bet oa atria arrythmi planned for ct of neck when stable amiod if had recurrent of afib prognosis is poor abx vent support now covid neg but remian in isolation per id recommnedation prelim echo ef 55% no sig vavluar dyfucntion dialysis as hemodynamically allowed pressors abx dnr d/wrn plt dropping sig lower Subjective ROS Limited/Unobtainable: Yes Objective Last 24 Hour Vital Signs Date Time Temp Pulse Resp B/P (MAP) Pulse Ox O2 Delivery O2 Flow Rate FiO2 01/26/20 19:00 99.4 111 32 87/46 (60) 95 01/26/20 18:50 114 33 40 01/26/20 18:30 109 33 90/46 (61) 91 01/26/20 18:00 108 32 85/47 (60) 92 01/26/20 17:30 111 33 124/54 (77) 92 01/26/20 17:00 104 27 92/48 (63) 92 01/26/20 16:30 109 30 104/51 (68) 98 01/26/20 16:00 104 01/26/20 16:00 30 01/26/20 16:00 104 30 109/58 (75) 92 01/26/20 16:00 Mechanical Ventilator 01/26/20 15:30 106 29 113/46 (68) 93 01/26/20 15:20 103 28 30 01/26/20 15:00 109 28 101/73 (82) 93 01/26/20 14:30 112 28 103/63 (76) 94 01/26/20 14:01 92/56 01/26/20 14:00 106 30 92/56 (68) 94 01/26/20 13:30 106 30 92/56 (68) 94 01/26/20 13:00 105 29 100/53 (69) 94 01/26/20 13:00 92/56 01/26/20 12:30 106 31 96/53 (67) 94 01/26/20 12:00 112 01/26/20 12:00 99.3 106 32 99/56 (70) 94 01/26/20 12:00 96/53 01/26/20 12:00 Mechanical Ventilator 01/26/20 12:00 30 01/26/20 11:30 105 33 103/46 (65) 94 01/26/20 11:24 115 22 30 01/26/20 11:00 103/46 01/26/20 11:00 111 28 126/54 (78) 95 01/26/20 10:30 108 30 84/46 (59) 96 01/26/20 10:00 111 30 90/46 (61) 96 01/26/20 10:00 90/46 01/26/20 09:30 109 32 88/46 (60) 95 01/26/20 09:00 87/46 01/26/20 09:00 99.2 112 33 87/46 (60) 94 01/26/20 08:09 109 01/26/20 08:00 Mechanical Ventilator 01/26/20 08:00 92/50 01/26/20 08:00 30 01/26/20 08:00 110 33 92/50 (64) 98 01/26/20 07:30 103 32 87/49 (62) 96 01/26/20 07:24 114 35 30 01/26/20 07:00 92/53 01/26/20 07:00 110 32 92/53 (66) 95 01/26/20 06:30 106 34 01/26/20 06:00 106/61 01/26/20 06:00 112 33 87/52 (64) 97 01/26/20 05:30 107 33 93/46 (62) 96 01/26/20 05:00 106/61 01/26/20 05:00 116 31 98/48 (65) 96 01/26/20 04:00 Mechanical Ventilator 01/26/20 04:00 109 01/26/20 04:00 112/60 01/26/20 04:00 98.9 112 31 100/52 (68) 97 01/26/20 04:00 30 01/26/20 03:30 112 31 90/46 (61) 96 01/26/20 03:00 123/52 01/26/20 03:00 101 99/46 (63) 95 01/26/20 02:47 108 31 30 01/26/20 02:30 104 32 96/62 (73) 94 01/26/20 02:00 110/56 01/26/20 02:00 107 32 101/52 (68) 96 01/26/20 01:30 108 33 107/79 (88) 94 01/26/20 01:00 98/55 01/26/20 01:00 103 31 122/54 (76) 96 01/26/20 00:45 103 31 122/54 (76) 96 01/26/20 00:37 105 32 124/53 (76) 95 01/26/20 00:30 105 32 96/55 (69) 95 01/26/20 00:09 105 34 123/63 (83) 95 01/26/20 00:04 99 32 86/52 (63) 94 01/26/20 00:03 101 30 56/42 (47) 94 01/26/20 00:00 99.4 100 29 85/44 (58) 94 01/26/20 00:00 30 01/26/20 00:00 124/53 01/26/20 00:00 Mechanical Ventilator 01/25/20 23:46 96/60 01/25/20 23:30 103 31 97/54 (68) 95 01/25/20 23:13 100 01/25/20 23:00 105 26 96/60 (72) 95 01/25/20 22:36 110 29 30 01/25/20 22:30 102 30 91/53 (66) 95 01/25/20 22:00 104 30 106/54 (71) 95 01/25/20 21:30 103 29 88/50 (63) 95 01/25/20 21:00 103 30 96/53 (67) 95 01/25/20 20:53 104 30 92/51 (65) 95 01/25/20 20:30 108 32 81/49 (60) 94 01/25/20 20:00 99.2 105 26 105/54 (71) 93 01/25/20 20:00 104 01/25/20 20:00 Mechanical Ventilator 01/25/20 20:00 30 01/25/20 19:57 102 35 95/54 (68) 96 General Appearance: on vent, patient on isolation, isolation precautions, other - tachypnmeic Extremities: other - contracted Intake and Output 01/25/20 01/26/20 19:00 07:00 Intake Total 1781.00 ml 2071.75 ml Output Total 60 ml 60 ml Balance 1721.00 ml 2011.75 ml Intake IV Total 1521.00 ml 1556.75 ml Tube Feeding 110 ml 465 ml Other 150 ml 50 ml Output Urine Total 60 ml 60 ml # Bowel Movements 1 Laboratory Tests Test 01/25/20 20:15 01/26/20 02:35 01/26/20 06:17 01/26/20 08:12 POC Whole Blood Glucose Pending Pending White Blood Count 20.2 K/UL (4.8-10.8) H Red Blood Count 2.82 M/UL (4.70-6.10) L Hemoglobin 8.6 G/DL (14.2-18.0) L Hematocrit 27.2 % (42.0-52.0) L Mean Corpuscular Volume 96 FL (80-99) Mean Corpuscular Hemoglobin 30.6 PG (27.0-31.0) Mean Corpuscular Hemoglobin Concent 31.8 G/DL (32.0-36.0) L Red Cell Distribution Width 15.6 % (11.6-14.8) H Platelet Count 38 K/UL (150-450) #L Mean Platelet Volume 7.8 FL (6.5-10.1) Neutrophils (%) (Auto) % (45.0-75.0) Lymphocytes (%) (Auto) % (20.0-45.0) Monocytes (%) (Auto) % (1.0-10.0) Eosinophils (%) (Auto) % (0.0-3.0) Basophils (%) (Auto) % (0.0-2.0) Differential Total Cells Counted 100 Neutrophils % (Manual) 83 % (45-75) H Lymphocytes % (Manual) 12 % (20-45) L Monocytes % (Manual) 5 % (1-10) Eosinophils % (Manual) 0 % (0-3) Basophils % (Manual) 0 % (0-2) Band Neutrophils 0 % (0-8) Platelet Estimate Decreased L Platelet Morphology Normal Hypochromasia 2+ Anisocytosis 1+ Sodium Level 145 MMOL/L (136-145) Potassium Level 5.8 MMOL/L (3.5-5.1) H Chloride Level 111 MMOL/L (98-107) H Carbon Dioxide Level 21 MMOL/L (21-32) Anion Gap 13 mmol/L (5-15) Blood Urea Nitrogen 159 mg/dL (7-18) H Creatinine 4.6 MG/DL (0.55-1.30) H Estimat Glomerular Filtration Rate 12.3 mL/min (>60) Glucose Level 147 MG/DL (74-106) H Calcium Level 7.5 MG/DL (8.5-10.1) L Phosphorus Level 5.4 MG/DL (2.5-4.9) H Magnesium Level 2.0 MG/DL (1.8-2.4) Total Bilirubin 0.5 MG/DL (0.2-1.0) Aspartate Amino Transf (AST/SGOT) 47 U/L (15-37) H Alanine Aminotransferase (ALT/SGPT) 26 U/L (12-78) Alkaline Phosphatase 101 U/L (46-116) Total Creatine Kinase 268 U/L (26-308) C-Reactive Protein, Quantitative 25.1 mg/dL (0.00-0.90) H Total Protein 6.3 G/DL (6.4-8.2) L Albumin 0.9 G/DL (3.4-5.0) L Globulin 5.4 g/dL Albumin/Globulin Ratio 0.2 (1.0-2.7) L Random Amikacin Level 12.8 MG/L Digoxin Level 2.1 NG/ML (0.5-2.0) H Arterial Blood pH 7.349 (7.350-7.450) Arterial Blood Partial Pressure CO2 33.2 mmHg (35.0-45.0) L Arterial Blood Partial Pressure O2 86.7 mmHg (75.0-100.0) Arterial Blood HCO3 17.9 mmol/L (22.0-26.0) *L Arterial Blood Oxygen Saturation 95.3 % (95-100) Arterial Blood Base Excess -7.0 (-2-2) L Behzad Test Positive Microbiology Date/Time Source Procedure Growth Status 01/24/20 09:05 Blood Blood Culture - Preliminary Resulted 01/24/20 08:55 Blood Blood Culture - Preliminary NO GROWTH AFTER 24 HOURS Resulted Objective per dr fallon Lungs: rales, rhonchi Heart: HR/BP stable Abdomen: soft Extremities: no C/C/E Kenji Shane MD Jan 26, 2020 19:55
[2020-01-26] MEDS: Dyna-Hex 2% Top Sol 2oz TOPIC SCH (21:26)
[2020-01-27] VITALS (55 sets, daily range): BP systolic 71–139; BP diastolic 38–82
[2020-01-27] MEDS: Meropenem 500 MG in NS 55 ML IVPB SCH ×2 (01:14→14:16)
[2020-01-27] MEDS: Sodium Bicarbonate 100 ML in D5 1/2NS 1,000 ML IV SCH ×2 (04:17→17:13)
[2020-01-27] MEDS: Norepinephrine Bitartrate 8 MG in D5W 500ml 492 ML IV SCH ×2 (04:17→04:51)
[2020-01-27 04:56] LABS: HEMATOCRIT 24.9 % (42.0-52.0); HEMOGLOBIN 7.8 G/DL (14.2-18.0); MEAN CORPUSCULAR VOLUME 96 FL (80-99); RED BLOOD COUNT 2.59 M/UL (4.70-6.10); WHITE BLOOD COUNT 12.5 K/UL (4.8-10.8)
[2020-01-27 05:23] LABS: ALANINE AMINOTRANSFERASE 24 U/L (12-78); ALBUMIN 0.9 G/DL (3.4-5.0); ALBUMIN/GLOBULIN RATIO 0.2 (1.0-2.7); ALKALINE PHOSPHATASE 92 U/L (46-116); ANION GAP 14 mmol/L (5-15); ASPARTATE AMINO TRANSFERASE 62 U/L (15-37); BILIRUBIN,TOTAL 0.4 MG/DL (0.2-1.0); BLOOD UREA NITROGEN 167 mg/dL (7-18); CARBON DIOXIDE 24 MMOL/L (21-32); CHLORIDE 106 MMOL/L (98-107); CREATININE 4.9 MG/DL (0.55-1.30); LACTATE DEHYDROGENASE 234 U/L (81-234); PHOSPHORUS 6.4 MG/DL (2.5-4.9); POTASSIUM 4.9 MMOL/L (3.5-5.1); SODIUM 144 MMOL/L (136-145)
[2020-01-27] MEDS: Sodium Citrate 30ml GT SCH ×4 (05:37→23:08)
[2020-01-27] MEDS: Midodrine 10mg tab GT SCH ×3 (05:37→21:09)
[2020-01-27] MEDS: Pantoprazole Inj IV SCH ×2 (08:53→21:09)
[2020-01-27] MEDS: Sodium Polystyrene Sulfonate 15gm Powder ORAL SCH ×2 (08:53→17:12)
[2020-01-27] MEDS: Heparin 5000 units/ml inj SUBQ SCH ×2 (09:00→21:00)
[2020-01-27] MEDS: Norepinephrine Bitartrate 16 MG in D5W 500ml 484 ML IV SCH ×2 (09:13→17:13)
[2020-01-27] MEDS ORDERED: Sterile Water Irrig 1000ml IRRIG ONE (09:22)
[2020-01-27] MEDS ORDERED: Tubing IV Secondary IV ONE (09:22)
[2020-01-27] MEDS ORDERED: NS 275ml ONE (09:22)
[2020-01-27 09:54] LABS: PLATELET COUNT 91 K/UL (150-450)
--- NOTE | 2020-01-27 10:25 | Nephrology Progress Note ---
Assessment/Plan Problem List: (1) FRIDA (acute kidney injury) (2) Sepsis (3) Ventilator dependent (4) Bilateral pleural effusion (5) Decubitus skin ulcer (6) Electrolyte imbalance Assessment: Hyperkalemia, hypernatremia Assessment FRIDA Dehydration, hypernatremia, hyperkalemia Anemia Chronic vent dependent, with superimposed acute component Bilateral pleural effusion Sepsis, leukocytosis, UTI Functional quadriplegia History of coronary artery disease and [place] Multiple decubiti Chronic malnutrition Plan January 25: Potassium remains elevated. Kayexalate given. Digoxin level higher to 2.1 . IV digoxin discontinued yesterday. Doing poorly. Continue present management. January 24: Potassium still high. Kayexalate every 6 hours ordered. Patient continues to do poorly. Digoxin level is 2, will hold IV digoxin for now. January 23: Potassium remains high. Kayexalate given. Bicitra started. Midodrin started. Patient DNR now. Continue per consultants. Overall prognosis poor. Hemodynamically unstable for dialysis treatment. Per order. Patient is doing poorly. No urine output. Labs reviewed. Discussed with RN and Miles. Kayexalate given for hyperkalemia. IV D5 and a half normal saline Pressors Antibiotics Skin care Continue per consultants Monitor renal parameters Avoid nephrotoxic's Patient now DNR. No candidate for dialysis treatment due to multiple medical issues, sepsis, poor prognosis. Objective Objective Last 24 Hour Vital Signs Date Time Temp Pulse Resp B/P (MAP) Pulse Ox O2 Delivery O2 Flow Rate FiO2 01/27/20 10:00 114/52 01/27/20 10:00 138 26 95/53 (67) 95 01/27/20 09:30 126 25 114/52 (72) 97 01/27/20 09:13 75/44 01/27/20 09:00 126 25 75/44 (54) 97 01/27/20 09:00 75/44 01/27/20 08:30 126 25 85/50 (62) 97 01/27/20 08:00 Mechanical Ventilator 01/27/20 08:00 91/50 01/27/20 08:00 99.8 126 25 91/50 (64) 97 01/27/20 08:00 40 01/27/20 07:30 126 25 102/50 (67) 97 01/27/20 07:24 126 24 40 01/27/20 07:00 126 25 97/51 (66) 97 01/27/20 06:45 125 25 104/56 (72) 97 01/27/20 06:30 125 26 01/27/20 06:30 125 23 96/49 (65) 97 01/27/20 06:15 125 24 89/51 (64) 98 01/27/20 06:00 126 23 92/50 (64) 99 01/27/20 05:45 131 29 110/54 (72) 100 01/27/20 05:35 114 27 122/57 (78) 97 01/27/20 05:30 89 25 72/47 (55) 97 01/27/20 05:15 100 30 94/82 (86) 96 01/27/20 05:00 99.1 130 25 94/59 (71) 99 01/27/20 04:51 75/49 01/27/20 04:48 99.1 01/27/20 04:45 135 27 75/49 (58) 98 01/27/20 04:36 128 28 82/53 (63) 98 01/27/20 04:33 133 29 74/48 (57) 97 01/27/20 04:32 135 28 71/48 (56) 97 01/27/20 04:30 133 29 80/48 (59) 97 01/27/20 04:30 80/48 01/27/20 04:05 119 29 85/52 (63) 97 01/27/20 04:00 40 01/27/20 04:00 Mechanical Ventilator 01/27/20 04:00 100.6 116 28 82/41 (55) 97 01/27/20 03:30 73/42 01/27/20 03:30 122 29 80/40 (53) 95 01/27/20 03:26 136 29 40 01/27/20 03:24 120 28 73/42 (52) 95 01/27/20 03:05 116 01/27/20 03:00 116 30 75/45 (55) 94 01/27/20 02:00 122 31 98/50 (66) 96 01/27/20 01:30 108 25 119/45 (69) 96 01/27/20 01:13 113 32 88/38 (55) 94 01/27/20 01:00 109 30 75/42 (53) 94 01/27/20 00:30 111 31 95/44 (61) 93 01/27/20 00:00 99.8 109 31 99/47 (64) 95 01/27/20 00:00 Mechanical Ventilator 01/26/20 23:00 108 26 96/56 (69) 96 01/26/20 23:00 111 01/26/20 22:54 110 31 40 01/26/20 22:32 107 31 96/43 (60) 94 20 22:30 109 31 78/45 (56) 94 20 22:00 107 32 90/43 (59) 95 20 21:45 91/46 01/26/20 21:30 110 31 91/46 (61) 94 01/26/20 21:00 111 32 82/43 (56) 95 20 20:31 109 33 80/45 (57) 94 20 20:30 109 34 78/46 (57) 94 01/26/20 20:00 100.5 105 34 87/51 (63) 95 20 20:00 Mechanical Ventilator 01/26/20 20:00 40 01/26/20 19:38 110 01/26/20 19:30 107 33 93/46 (62) 94 01/26/20 19:00 99.4 111 32 87/46 (60) 95 20 18:50 114 33 40 01/26/20 18:30 109 33 90/46 (61) 91 01/26/20 18:00 108 32 85/47 (60) 92 01/26/20 17:30 111 33 124/54 (77) 92 20 17:00 104 27 92/48 (63) 92 01/26/20 16:30 109 30 104/51 (68) 98 01/26/20 16:00 104 01/26/20 16:00 30 01/26/20 16:00 104 30 109/58 (75) 92 20 16:00 Mechanical Ventilator 01/26/20 15:30 106 29 113/46 (68) 93 20 15:20 103 28 30 01/26/20 15:00 109 28 101/73 (82) 93 01/26/20 14:30 112 28 103/63 (76) 94 01/26/20 14:01 92/56 01/26/20 14:00 106 30 92/56 (68) 94 01/26/20 13:30 106 30 92/56 (68) 94 01/26/20 13:00 105 29 100/53 (69) 94 01/26/20 13:00 92/56 01/26/20 12:30 106 31 96/53 (67) 94 01/26/20 12:00 112 01/26/20 12:00 99.3 106 32 99/56 (70) 94 01/26/20 12:00 96/53 01/26/20 12:00 Mechanical Ventilator 01/26/20 12:00 30 01/26/20 11:30 105 33 103/46 (65) 94 01/26/20 11:24 115 22 30 01/26/20 11:00 103/46 01/26/20 11:00 111 28 126/54 (78) 95 01/26/20 10:30 108 30 84/46 (59) 96 Intake and Output 01/26/20 01/27/20 19:00 07:00 Intake Total 1771.25 ml 2006.5975 ml Output Total 35 ml 15 ml Balance 1736.25 ml 1991.5975 ml Intake IV Total 1401.25 ml 2006.5975 ml Tube Feeding 270 ml Other 100 ml Output Urine Total 35 ml 15 ml # Bowel Movements 1 5 Laboratory Tests 01/27/20 03:56: White Blood Count 12.5H, Red Blood Count 2.59L, Hemoglobin 7.8L, Hematocrit 24.9L, Mean Corpuscular Volume 96, Mean Corpuscular Hemoglobin 30.2, Mean Corpuscular Hemoglobin Concent 31.4L, Red Cell Distribution Width 16.0H, Platelet Count 91#L, Mean Platelet Volume 9.2, Neutrophils (%) (Auto) , Lymphocytes (%) (Auto) , Monocytes (%) (Auto) , Eosinophils (%) (Auto) , Basophils (%) (Auto) , Differential Total Cells Counted 100, Neutrophils % ( Manual) 81H, Lymphocytes % (Manual) 11L, Monocytes % (Manual) 6, Eosinophils % ( Manual) 2, Basophils % (Manual) 0, Band Neutrophils 0, Platelet Estimate DecreasedL, Platelet Morphology , Clumped Platelets 1+, Hypochromasia 1+, Anisocytosis 1+, Erythrocyte Sedimentation Rate 132H, Reticulocyte Count [ Pending], Sodium Level 144, Potassium Level 4.9, Chloride Level 106, Carbon Dioxide Level 24, Anion Gap 14, Blood Urea Nitrogen 167H, Creatinine 4.9H, Estimat Glomerular Filtration Rate 11.4, Glucose Level 141H, Uric Acid 10.4H, Calcium Level 7.0L, Phosphorus Level 6.4H, Magnesium Level 1.8, Total Bilirubin 0.4, Aspartate Amino Transf (AST/SGOT) 62H, Alanine Aminotransferase (ALT/SGPT) 24, Alkaline Phosphatase 92, Lactate Dehydrogenase 234, Troponin I 0.140H, C- Reactive Protein, Quantitative 25.1H, Pro-B-Type Natriuretic Peptide 24202I, Total Protein 5.9L, Albumin 0.9L, Globulin 5.0, Albumin/Globulin Ratio 0.2L, Digoxin Level 1.7 Height (Feet): 5 Height (Inches): 5.00 Weight (Pounds): 141 Ronnie Guevara MD Jan 27, 2020 10:25
[2020-01-27] MEDS: Phenylephrine 50 MG in D5W 245 ML IV SCH ×2 (10:26→17:13)
--- NOTE | 2020-01-27 10:32 | General Progress Note ---
Assessment/Plan Problem List: (1) Severe anemia ICD Codes: D64.9 - Anemia, unspecified SNOMED: 425013582 (2) Encephalopathy acute ICD Codes: G93.40 - Encephalopathy, unspecified SNOMED: 05376003, 871159187 (3) ATN (acute tubular necrosis) ICD Codes: N17.0 - Acute kidney failure with tubular necrosis SNOMED: 96323214 (4) Feeding by G-tube ICD Codes: Z93.1 - Gastrostomy status SNOMED: 568989407, 249985937, 773466068 (5) Pneumonia ICD Codes: J18.9 - Pneumonia, unspecified organism SNOMED: 694230178 (6) Chronic respiratory failure ICD Codes: J96.10 - Chronic respiratory failure, unspecified whether with hypoxia or hypercapnia SNOMED: 51340699 Assessment/Plan: fu H&H prn blood transfusion abx per ID respiratory care icu care d/w surg, will hold GTF for now>> but still lots of secretion around the trach CT of the neck and chest, when patient is more stable will fu Subjective ROS Limited/Unobtainable: No Allergies: Coded Allergies: NSAIDS (NON-STEROIDAL ANTI-INFLAMMA (Unverified Allergy, Unknown, 11/27/18) PIPERACILLIN (Unverified Allergy, Unknown, 01/25/19) tolerates carbapenem TAZOBACTAM (Unverified Allergy, Unknown, 11/27/18) Uncoded Allergies: NSAID (Allergy, Unknown, 09/14/18) Objective Last 24 Hour Vital Signs Date Time Temp Pulse Resp B/P (MAP) Pulse Ox O2 Delivery O2 Flow Rate FiO2 01/27/20 10:26 113 77/41 01/27/20 10:00 114/52 01/27/20 10:00 138 26 95/53 (67) 95 01/27/20 09:30 126 25 114/52 (72) 97 01/27/20 09:13 75/44 01/27/20 09:00 126 25 75/44 (54) 97 01/27/20 09:00 75/44 01/27/20 08:30 126 25 85/50 (62) 97 01/27/20 08:00 Mechanical Ventilator 01/27/20 08:00 91/50 01/27/20 08:00 99.8 126 25 91/50 (64) 97 01/27/20 08:00 40 01/27/20 07:30 126 25 102/50 (67) 97 01/27/20 07:24 126 24 40 01/27/20 07:00 126 25 97/51 (66) 97 01/27/20 06:45 125 25 104/56 (72) 97 01/27/20 06:30 125 26 01/27/20 06:30 125 23 96/49 (65) 97 01/27/20 06:15 125 24 89/51 (64) 98 01/27/20 06:00 126 23 92/50 (64) 99 01/27/20 05:45 131 29 110/54 (72) 100 01/27/20 05:35 114 27 122/57 (78) 97 01/27/20 05:30 89 25 72/47 (55) 97 01/27/20 05:15 100 30 94/82 (86) 96 01/27/20 05:00 99.1 130 25 94/59 (71) 99 01/27/20 04:51 75/49 01/27/20 04:48 99.1 01/27/20 04:45 135 27 75/49 (58) 98 01/27/20 04:36 128 28 82/53 (63) 98 01/27/20 04:33 133 29 74/48 (57) 97 01/27/20 04:32 135 28 71/48 (56) 97 01/27/20 04:30 133 29 80/48 (59) 97 01/27/20 04:30 80/48 01/27/20 04:05 119 29 85/52 (63) 97 01/27/20 04:00 40 01/27/20 04:00 Mechanical Ventilator 01/27/20 04:00 100.6 116 28 82/41 (55) 97 01/27/20 03:30 73/42 01/27/20 03:30 122 29 80/40 (53) 95 01/27/20 03:26 136 29 40 01/27/20 03:24 120 28 73/42 (52) 95 01/27/20 03:05 116 01/27/20 03:00 116 30 75/45 (55) 94 01/27/20 02:00 122 31 98/50 (66) 96 01/27/20 01:30 108 25 119/45 (69) 96 01/27/20 01:13 113 32 88/38 (55) 94 01/27/20 01:00 109 30 75/42 (53) 94 01/27/20 00:30 111 31 95/44 (61) 93 01/27/20 00:00 99.8 109 31 99/47 (64) 95 01/27/20 00:00 Mechanical Ventilator 01/26/20 23:00 108 26 96/56 (69) 96 01/26/20 23:00 111 01/26/20 22:54 110 31 40 01/26/20 22:32 107 31 96/43 (60) 94 01/26/20 22:30 109 31 78/45 (56) 94 01/26/20 22:00 107 32 90/43 (59) 95 20 21:45 91/46 01/26/20 21:30 110 31 91/46 (61) 94 01/26/20 21:00 111 32 82/43 (56) 95 01/26/20 20:31 109 33 80/45 (57) 94 01/26/20 20:30 109 34 78/46 (57) 94 01/26/20 20:00 100.5 105 34 87/51 (63) 95 01/26/20 20:00 Mechanical Ventilator 01/26/20 20:00 40 01/26/20 19:38 110 01/26/20 19:30 107 33 93/46 (62) 94 01/26/20 19:00 99.4 111 32 87/46 (60) 95 01/26/20 18:50 114 33 40 01/26/20 18:30 109 33 90/46 (61) 91 01/26/20 18:00 108 32 85/47 (60) 92 01/26/20 17:30 111 33 124/54 (77) 92 01/26/20 17:00 104 27 92/48 (63) 92 01/26/20 16:30 109 30 104/51 (68) 98 01/26/20 16:00 104 01/26/20 16:00 30 01/26/20 16:00 104 30 109/58 (75) 92 01/26/20 16:00 Mechanical Ventilator 01/26/20 15:30 106 29 113/46 (68) 93 01/26/20 15:20 103 28 30 01/26/20 15:00 109 28 101/73 (82) 93 01/26/20 14:30 112 28 103/63 (76) 94 01/26/20 14:01 92/56 01/26/20 14:00 106 30 92/56 (68) 94 01/26/20 13:30 106 30 92/56 (68) 94 01/26/20 13:00 105 29 100/53 (69) 94 01/26/20 13:00 92/56 01/26/20 12:30 106 31 96/53 (67) 94 01/26/20 12:00 112 01/26/20 12:00 99.3 106 32 99/56 (70) 94 01/26/20 12:00 96/53 01/26/20 12:00 Mechanical Ventilator 01/26/20 12:00 30 01/26/20 11:30 105 33 103/46 (65) 94 01/26/20 11:24 115 22 30 01/26/20 11:00 103/46 01/26/20 11:00 111 28 126/54 (78) 95 01/26/20 10:30 108 30 84/46 (59) 96 Intake and Output 01/26/20 01/27/20 19:00 07:00 Intake Total 1771.25 ml 2006.5975 ml Output Total 35 ml 15 ml Balance 1736.25 ml 1991.5975 ml Intake IV Total 1401.25 ml 2007.5975 ml Tube Feeding 270 ml Other 100 ml Output Urine Total 35 ml 15 ml # Bowel Movements 1 5 Laboratory Tests 01/27/20 03:56: White Blood Count 12.5H, Red Blood Count 2.59L, Hemoglobin 7.8L, Hematocrit 24.9L, Mean Corpuscular Volume 96, Mean Corpuscular Hemoglobin 30.2, Mean Corpuscular Hemoglobin Concent 31.4L, Red Cell Distribution Width 16.0H, Platelet Count 91#L, Mean Platelet Volume 9.2, Neutrophils (%) (Auto) , Lymphocytes (%) (Auto) , Monocytes (%) (Auto) , Eosinophils (%) (Auto) , Basophils (%) (Auto) , Differential Total Cells Counted 100, Neutrophils % ( Manual) 81H, Lymphocytes % (Manual) 11L, Monocytes % (Manual) 6, Eosinophils % ( Manual) 2, Basophils % (Manual) 0, Band Neutrophils 0, Platelet Estimate DecreasedL, Platelet Morphology , Clumped Platelets 1+, Hypochromasia 1+, Anisocytosis 1+, Erythrocyte Sedimentation Rate 132H, Reticulocyte Count [ Pending], Sodium Level 144, Potassium Level 4.9, Chloride Level 106, Carbon Dioxide Level 24, Anion Gap 14, Blood Urea Nitrogen 167H, Creatinine 4.9H, Estimat Glomerular Filtration Rate 11.4, Glucose Level 141H, Uric Acid 10.4H, Calcium Level 7.0L, Phosphorus Level 6.4H, Magnesium Level 1.8, Total Bilirubin 0.4, Aspartate Amino Transf (AST/SGOT) 62H, Alanine Aminotransferase (ALT/SGPT) 24, Alkaline Phosphatase 92, Lactate Dehydrogenase 234, Troponin I 0.140H, C- Reactive Protein, Quantitative 25.1H, Pro-B-Type Natriuretic Peptide 66006D, Total Protein 5.9L, Albumin 0.9L, Globulin 5.0, Albumin/Globulin Ratio 0.2L, Digoxin Level 1.7 Height (Feet): 5 Height (Inches): 5.00 Weight (Pounds): 141 General Appearance: no apparent distress EENT: normal ENT inspection Neck: supple Cardiovascular: normal rate, tachycardia Respiratory/Chest: decreased breath sounds Abdomen: normal bowel sounds, non tender, soft Extremities: non-tender Norm Thurston MD Jan 27, 2020 10:32
--- NOTE | 2020-01-27 12:15 | Infectious Diseases Prog Note ---
Assessment/Plan Assessment: Septic Shock- increased pressors requirements 01/26 High grade Gram neg bacteremia- from UTI and obstructive uropathy -01/21 BCx 8/ Citrobacter koseri (S Cefepime, Meropenem) Staph bacteremia- both CONS and MRSA -01/21 2/ Staph haemolyticus, 2/ MRSA; 01/23 BCx 1/4 CONS; 01/25 Bcx p 2d Echo: no vegetations seen Pneumonia- COVID neg x2 (on same day) Acute on chronic respiratory failure - SP trach/vent dependant -01/23 CXR: Again demonstrated is interstitial disease throughout the left lung as well as right perihilar and basilar interstitial opacities. There is probably a small right pleural effusion. -sp cx P , mirabilis (S Zosyn, Meropenem) -01/21 rapid COVID neg, COVID NAAT neg UTI -u/a wbc 10-15, nit neg, leuk +3; ucx >100k MDR P. stuarti (S Cefepime, Meropenem , Zosyn) Low grade fever, recurrent Severe leukocytosis; improving Hypernatremia Hyperkalemia FRIDA; worsening metabolic acidosis -Renal US: Limited exam, as described, poor visualization of the left kidney. Right and probably left hydronephrosis. Probable bladder mass. 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 UTI and bacteremia 11/2018 COPD Dementia non verbal functional quadriplegia chronic resp failure s/p trach/vent dependent SNF resident ([facility]) DNR Plan: -Daptomycin #3 (abx d #12/17) for staph bacteremia -monitor CPK -Continue Meropenem #/- for UTI/bacteremia and PNA -01/25 SP AMikacin #5 -01/23 SP IV Vancomycin #3 -01/21 Flagyl x1, Levaquin x 1 -f/u cx -Monitor CBC/CMP, temperatures -COVID19 neg x2 (PCR and rapid); will keep isolation for now until afebrile > 72hrs -ICU/trach/PEG care -aspiration precautions -poor prognosis; consider comfort care -f/u Bcx x2 -CT neck/chest to eval for possible esophagea-tracheal fistula- when more stable Thank you for consulting [facility]. Will continue to follow along with you. Discussed wit RN, Dr Avelar and pharmacist. Subjective Allergies: Coded Allergies: NSAIDS (NON-STEROIDAL ANTI-INFLAMMA (Unverified Allergy, Unknown, 11/27/18) PIPERACILLIN (Unverified Allergy, Unknown, 01/25/19) tolerates carbapenem TAZOBACTAM (Unverified Allergy, Unknown, 11/27/18) Uncoded Allergies: NSAID (Allergy, Unknown, 09/14/18) Tm 100.6 maxed on Levophed, lisa added- on 100mcg persistent bacteremic; also MRSA Cr worsening wbc improving Objective Last 24 Hour Vital Signs Date Time Temp Pulse Resp B/P (MAP) Pulse Ox O2 Delivery O2 Flow Rate FiO2 01/27/20 11:30 112 24 108/57 (74) 96 01/27/20 11:21 115 25 40 01/27/20 11:21 115 25 97 Mechanical Ventilator 40 01/27/20 11:00 113 22 106/52 (70) 96 01/27/20 10:30 118 25 115/50 (71) 95 01/27/20 10:26 113 77/41 01/27/20 10:00 114/52 01/27/20 10:00 138 26 95/53 (67) 95 01/27/20 09:30 126 25 114/52 (72) 97 01/27/20 09:13 75/44 01/27/20 09:00 126 25 75/44 (54) 97 01/27/20 09:00 75/44 01/27/20 08:30 126 25 85/50 (62) 97 01/27/20 08:00 Mechanical Ventilator 01/27/20 08:00 91/50 01/27/20 08:00 99.8 126 25 91/50 (64) 97 01/27/20 08:00 40 01/27/20 07:30 126 25 102/50 (67) 97 01/27/20 07:24 126 24 40 01/27/20 07:00 126 25 97/51 (66) 97 01/27/20 06:45 125 25 104/56 (72) 97 01/27/20 06:30 125 26 01/27/20 06:30 125 23 96/49 (65) 97 01/27/20 06:15 125 24 89/51 (64) 98 01/27/20 06:00 126 23 92/50 (64) 99 01/27/20 05:45 131 29 110/54 (72) 100 01/27/20 05:35 114 27 122/57 (78) 97 01/27/20 05:30 89 25 72/47 (55) 97 01/27/20 05:15 100 30 94/82 (86) 96 01/27/20 05:00 99.1 130 25 94/59 (71) 99 01/27/20 04:51 75/49 01/27/20 04:48 99.1 01/27/20 04:45 135 27 75/49 (58) 98 01/27/20 04:36 128 28 82/53 (63) 98 01/27/20 04:33 133 29 74/48 (57) 97 01/27/20 04:32 135 28 71/48 (56) 97 01/27/20 04:30 133 29 80/48 (59) 97 01/27/20 04:30 80/48 01/27/20 04:05 119 29 85/52 (63) 97 01/27/20 04:00 40 01/27/20 04:00 Mechanical Ventilator 01/27/20 04:00 100.6 116 28 82/41 (55) 97 01/27/20 03:30 73/42 01/27/20 03:30 122 29 80/40 (53) 95 01/27/20 03:26 136 29 40 01/27/20 03:24 120 28 73/42 (52) 95 01/27/20 03:05 116 01/27/20 03:00 116 30 75/45 (55) 94 01/27/20 02:00 122 31 98/50 (66) 96 01/27/20 01:30 108 25 119/45 (69) 96 01/27/20 01:13 113 32 88/38 (55) 94 01/27/20 01:00 109 30 75/42 (53) 94 01/27/20 00:30 111 31 95/44 (61) 93 01/27/20 00:00 99.8 109 31 99/47 (64) 95 01/27/20 00:00 Mechanical Ventilator 01/26/20 23:00 108 26 96/56 (69) 96 20 23:00 111 7/20 22:54 110 31 40 720 22:32 107 31 96/43 (60) 94 723/20 22:30 109 31 78/45 (56) 94 7/23/20 22:00 107 32 90/43 (59) 95 7/23/20 21:45 91/46 720 21:30 110 31 91/46 (61) 94 720 21:00 111 32 82/43 (56) 95 720 20:31 109 33 80/45 (57) 94 720 20:30 109 34 78/46 (57) 94 20 20:00 100.5 105 34 87/51 (63) 95 20 20:00 Mechanical Ventilator 01/26/20 20:00 40 01/26/20 19:38 110 01/26/20 19:30 107 33 93/46 (62) 94 01/26/20 19:00 99.4 111 32 87/46 (60) 95 720 18:50 114 33 40 20 18:30 109 33 90/46 (61) 91 20 18:00 108 32 85/47 (60) 92 20 17:30 111 33 124/54 (77) 92 720 17:00 104 27 92/48 (63) 92 01/26/20 16:30 109 30 104/51 (68) 98 01/26/20 16:00 104 01/26/20 16:00 30 01/26/20 16:00 104 30 109/58 (75) 92 20 16:00 Mechanical Ventilator 01/26/20 15:30 106 29 113/46 (68) 93 20 15:20 103 28 30 01/26/20 15:00 109 28 101/73 (82) 93 20 14:30 112 28 103/63 (76) 94 20 14:01 92/56 01/26/20 14:00 106 30 92/56 (68) 94 20 13:30 106 30 92/56 (68) 94 20 13:00 105 29 100/53 (69) 94 7/23/20 13:00 92/56 01/26/20 12:30 106 31 96/53 (67) 94 Height (Feet): 5 Height (Inches): 5.00 Weight (Pounds): 141 General Appearance: lethargic, Chronically Ill Head: normocephalic ENT: dry mucus membranes, trach to vent Neck: limited range of motion, tracheotomy Respiratory: decreased breath sounds Cardiovascular #1: Tachycardic Gastrointestinal: non tender, soft, GT tube in place Laboratory Tests Test 01/27/20 03:56 White Blood Count 12.5 K/UL (4.8-10.8) H Red Blood Count 2.59 M/UL (4.70-6.10) L Hemoglobin 7.8 G/DL (14.2-18.0) L Hematocrit 24.9 % (42.0-52.0) L Mean Corpuscular Volume 96 FL (80-99) Mean Corpuscular Hemoglobin 30.2 PG (27.0-31.0) Mean Corpuscular Hemoglobin Concent 31.4 G/DL (32.0-36.0) L Red Cell Distribution Width 16.0 % (11.6-14.8) H Platelet Count 91 K/UL (150-450) #L Mean Platelet Volume 9.2 FL (6.5-10.1) Neutrophils (%) (Auto) % (45.0-75.0) Lymphocytes (%) (Auto) % (20.0-45.0) Monocytes (%) (Auto) % (1.0-10.0) Eosinophils (%) (Auto) % (0.0-3.0) Basophils (%) (Auto) % (0.0-2.0) Differential Total Cells Counted 100 Neutrophils % (Manual) 81 % (45-75) H Lymphocytes % (Manual) 11 % (20-45) L Monocytes % (Manual) 6 % (1-10) Eosinophils % (Manual) 2 % (0-3) Basophils % (Manual) 0 % (0-2) Band Neutrophils 0 % (0-8) Platelet Estimate Decreased L Platelet Morphology Clumped Platelets 1+ Hypochromasia 1+ Anisocytosis 1+ Erythrocyte Sedimentation Rate 132 MM/HR (0-20) H Reticulocyte Count 0.9 % (0.5-2.0) Sodium Level 144 MMOL/L (136-145) Potassium Level 4.9 MMOL/L (3.5-5.1) Chloride Level 106 MMOL/L (98-107) Carbon Dioxide Level 24 MMOL/L (21-32) Anion Gap 14 mmol/L (5-15) Blood Urea Nitrogen 167 mg/dL (7-18) H Creatinine 4.9 MG/DL (0.55-1.30) H Estimat Glomerular Filtration Rate 11.4 mL/min (>60) Glucose Level 141 MG/DL (74-106) H Uric Acid 10.4 MG/DL (2.6-7.2) H Calcium Level 7.0 MG/DL (8.5-10.1) L Phosphorus Level 6.4 MG/DL (2.5-4.9) H Magnesium Level 1.8 MG/DL (1.8-2.4) Total Bilirubin 0.4 MG/DL (0.2-1.0) Aspartate Amino Transf (AST/SGOT) 62 U/L (15-37) H Alanine Aminotransferase (ALT/SGPT) 24 U/L (12-78) Alkaline Phosphatase 92 U/L (46-116) Lactate Dehydrogenase 234 U/L (81-234) Troponin I 0.140 ng/mL (0.000-0.056) C-Reactive Protein, Quantitative 25.1 mg/dL (0.00-0.90) H Pro-B-Type Natriuretic Peptide 43239 pg/mL (0-125) H Total Protein 5.9 G/DL (6.4-8.2) L Albumin 0.9 G/DL (3.4-5.0) L Globulin 5.0 g/dL Albumin/Globulin Ratio 0.2 (1.0-2.7) L Digoxin Level 1.7 NG/ML (0.5-2.0) Current Medications Medications (Trade) Dose Ordered Sig/Margarette Route PRN Reason Start Time Stop Time Status Last Admin Dose Admin Acetaminophen (Tylenol) 650 mg Q4H PRN ORAL fever 01/22/20 08:15 02/21/20 08:14 01/27/20 04:18 Allopurinol (allopurinoL) 300 mg DAILY GT 01/27/20 09:00 02/26/20 08:59 01/27/20 08:52 Chlorhexidine Gluconate (Flaca-Hex 2%) 1 applic DAILY@2000 TOPIC 01/26/20 20:00 04/25/20 19:59 01/26/20 21:26 Daptomycin 400 mg/ Sodium Chloride 55 ml @ 100 mls/hr Q48H IV 01/25/20 12:00 02/01/20 11:59 01/25/20 12:26 Heparin Sodium (Porcine) (Heparin 5000 units/ml) 5,000 units EVERY 12 HOURS SUBQ 01/22/20 21:00 03/07/20 20:59 01/24/20 20:56 Lorazepam (Ativan 2mg/ml 1ml) 2 mg Q2H PRN IV For Anxiety 01/22/20 08:15 01/29/20 08:14 Meropenem 500 mg/ Sodium Chloride 55 ml @ 110 mls/hr Q12H IVPB 01/22/20 14:00 01/31/20 23:59 01/27/20 01:14 Midodrine (Pro-Amatine) 10 mg Q8HR GT 01/24/20 14:00 04/23/20 13:59 01/27/20 05:37 Morphine Sulfate (Morphine Sulfate) 4 mg Q4H PRN IVP Severe Pain (Pain Scale 7-10) 01/22/20 08:15 01/29/20 08:14 Norepinephrine Bitartrate 16 mg/ Dextrose 500 ml @ 0 mls/hr Q24H IV 01/27/20 09:00 02/26/20 08:59 01/27/20 09:13 Ondansetron HCl (Zofran) 4 mg Q6H PRN IVP Nausea & Vomiting 01/22/20 08:15 02/21/20 08:14 Pantoprazole (Protonix) 40 mg Q12HR IV 01/22/20 09:30 02/21/20 09:29 01/27/20 08:53 Phenylephrine HCl 50 mg/Dextrose 250 ml @ 0 mls/hr Q24H IV 01/27/20 07:03 02/26/20 07:02 01/27/20 10:26 Polyethylene Glycol (Miralax) 17 gm DAILYPRN PRN ORAL Constipation 01/22/20 08:15 02/21/20 08:14 Sodium Bicarbonate 100 ml/Dextrose/ Sodium Chloride 1,100 ml @ 100 mls/hr Q11H IV 01/25/20 09:00 02/24/20 08:59 01/27/20 04:17 Sodium Polystyrene Sulfonate (Kayexalate) 30 gm BID ORAL 01/26/20 18:00 01/28/20 17:59 01/27/20 08:53 Sodium Citrate (Bicitra) 30 ml EVERY 6 HOURS GT 01/24/20 18:00 02/23/20 17:59 01/27/20 05:37 Lilly Dorantes M.D. Jan 27, 2020 12:15
[2020-01-27] MEDS: DAPTOmycin 400 MG in NS 55 ML IV SCH (12:20)
--- NOTE | 2020-01-27 12:45 | Pulmonolgy Critical Care Note ---
Critical Care - Asmt/Plan Problems: (1) Encephalopathy acute (2) Multiple organ failure (3) Acute on chronic respiratory failure (4) Sepsis (5) FRIDA (acute kidney injury) (6) Thrombocytopenia (7) Dehydration (8) Feeding by G-tube (9) Protein-calorie malnutrition, severe (10) Chronic respiratory failure (11) funtional quadriplegia (12) Ventilator dependent Respiratory: monitor respiratory rate, adjust FIO2, CXR Cardiac: continue to monitor HR/BP Renal: F/U I&O, keep IV fluid, check electrolytes Infectious Disease: check cultures, continue antibiotics Gastrointestinal: continue feedings/current rate Endocrine: monitor blood sugar, continue sliding scale insulin Hematologic: monitor H/H, transfuse if hgb<8.5 Neurologic: keep patient comfortable Affect: PRN ativan Time Spent (Minutes): 40 Notes Reviewed: analytics consultant Discussed with: nurses, consultants, patient case coordinatormanager urgent care - Objective Last 24 Hour Vital Signs Date Time Temp Pulse Resp B/P (MAP) Pulse Ox O2 Delivery O2 Flow Rate FiO2 01/27/20 12:00 100.0 116 24 137/55 (82) 25 01/27/20 12:00 115 01/27/20 12:00 Mechanical Ventilator 01/27/20 12:00 40 01/27/20 11:30 112 24 108/57 (74) 96 01/27/20 11:21 115 25 40 01/27/20 11:21 115 25 97 Mechanical Ventilator 40 01/27/20 11:00 113 22 106/52 (70) 96 01/27/20 10:30 118 25 115/50 (71) 95 01/27/20 10:26 113 77/41 01/27/20 10:00 114/52 01/27/20 10:00 138 26 95/53 (67) 95 01/27/20 09:30 126 25 114/52 (72) 97 01/27/20 09:13 75/44 01/27/20 09:00 126 25 75/44 (54) 97 01/27/20 09:00 75/44 01/27/20 08:30 126 25 85/50 (62) 97 01/27/20 08:00 127 01/27/20 08:00 Mechanical Ventilator 01/27/20 08:00 91/50 01/27/20 08:00 99.8 126 25 91/50 (64) 97 01/27/20 08:00 40 01/27/20 07:30 126 25 102/50 (67) 97 01/27/20 07:24 126 24 40 01/27/20 07:00 126 25 97/51 (66) 97 01/27/20 06:45 125 25 104/56 (72) 97 01/27/20 06:30 125 26 01/27/20 06:30 125 23 96/49 (65) 97 01/27/20 06:15 125 24 89/51 (64) 98 01/27/20 06:00 126 23 92/50 (64) 99 01/27/20 05:45 131 29 110/54 (72) 100 01/27/20 05:35 114 27 122/57 (78) 97 01/27/20 05:30 89 25 72/47 (55) 97 01/27/20 05:15 100 30 94/82 (86) 96 01/27/20 05:00 99.1 130 25 94/59 (71) 99 01/27/20 04:51 75/49 01/27/20 04:48 99.1 01/27/20 04:45 135 27 75/49 (58) 98 01/27/20 04:36 128 28 82/53 (63) 98 01/27/20 04:33 133 29 74/48 (57) 97 01/27/20 04:32 135 28 71/48 (56) 97 01/27/20 04:30 133 29 80/48 (59) 97 01/27/20 04:30 80/48 01/27/20 04:05 119 29 85/52 (63) 97 01/27/20 04:00 40 01/27/20 04:00 Mechanical Ventilator 01/27/20 04:00 100.6 116 28 82/41 (55) 97 01/27/20 03:30 73/42 01/27/20 03:30 122 29 80/40 (53) 95 01/27/20 03:26 136 29 40 01/27/20 03:24 120 28 73/42 (52) 95 01/27/20 03:05 116 01/27/20 03:00 116 30 75/45 (55) 94 01/27/20 02:00 122 31 98/50 (66) 96 01/27/20 01:30 108 25 119/45 (69) 96 01/27/20 01:13 113 32 88/38 (55) 94 01/27/20 01:00 109 30 75/42 (53) 94 01/27/20 00:30 111 31 95/44 (61) 93 01/27/20 00:00 99.8 109 31 99/47 (64) 95 01/27/20 00:00 Mechanical Ventilator 01/26/20 23:00 108 26 96/56 (69) 96 01/26/20 23:00 111 01/26/20 22:54 110 31 40 01/26/20 22:32 107 31 96/43 (60) 94 01/26/20 22:30 109 31 78/45 (56) 94 01/26/20 22:00 107 32 90/43 (59) 95 01/26/20 21:45 91/46 01/26/20 21:30 110 31 91/46 (61) 94 01/26/20 21:00 111 32 82/43 (56) 95 01/26/20 20:31 109 33 80/45 (57) 94 01/26/20 20:30 109 34 78/46 (57) 94 01/26/20 20:00 100.5 105 34 87/51 (63) 95 01/26/20 20:00 Mechanical Ventilator 01/26/20 20:00 40 01/26/20 19:38 110 01/26/20 19:30 107 33 93/46 (62) 94 01/26/20 19:00 99.4 111 32 87/46 (60) 95 01/26/20 18:50 114 33 40 01/26/20 18:30 109 33 90/46 (61) 91 01/26/20 18:00 108 32 85/47 (60) 92 01/26/20 17:30 111 33 124/54 (77) 92 01/26/20 17:00 104 27 92/48 (63) 92 01/26/20 16:30 109 30 104/51 (68) 98 01/26/20 16:00 104 01/26/20 16:00 30 01/26/20 16:00 104 30 109/58 (75) 92 01/26/20 16:00 Mechanical Ventilator 01/26/20 15:30 106 29 113/46 (68) 93 01/26/20 15:20 103 28 30 01/26/20 15:00 109 28 101/73 (82) 93 01/26/20 14:30 112 28 103/63 (76) 94 01/26/20 14:01 92/56 01/26/20 14:00 106 30 92/56 (68) 94 01/26/20 13:30 106 30 92/56 (68) 94 01/26/20 13:00 105 29 100/53 (69) 94 01/26/20 13:00 92/56 Status: sedated Condition: critical HEENT: atraumatic Lungs: rales, rhonchi Heart: HR/BP stable Abdomen: soft, active bowel sounds Extremities: no C/C/E Critical Care - Subjective ROS Limited/Unobtainable: Yes Condition: critical EKG Rhythm: Sinus Rhythm FI02: 40 Vent Support Breath Rate: 16 Vent Support Mode: AC Vent Tidal Volume: 500 Sputum Amount: Scant PEEP: 5.0 PIP: 38 Drips: levophed 13 ug I&O: Intake and Output 01/26/20 01/27/20 19:00 07:00 Intake Total 1771.25 ml 2006.5975 ml Output Total 35 ml 15 ml Balance 1736.25 ml 1991.5975 ml Intake IV Total 1401.25 ml 2006.5975 ml Tube Feeding 270 ml Other 100 ml Output Urine Total 35 ml 15 ml # Bowel Movements 1 5 CXR: no change Labs: Laboratory Tests Test 01/27/20 03:56 White Blood Count 12.5 K/UL (4.8-10.8) H Red Blood Count 2.59 M/UL (4.70-6.10) L Hemoglobin 7.8 G/DL (14.2-18.0) L Hematocrit 24.9 % (42.0-52.0) L Mean Corpuscular Volume 96 FL (80-99) Mean Corpuscular Hemoglobin 30.2 PG (27.0-31.0) Mean Corpuscular Hemoglobin Concent 31.4 G/DL (32.0-36.0) L Red Cell Distribution Width 16.0 % (11.6-14.8) H Platelet Count 91 K/UL (150-450) #L Mean Platelet Volume 9.2 FL (6.5-10.1) Neutrophils (%) (Auto) % (45.0-75.0) Lymphocytes (%) (Auto) % (20.0-45.0) Monocytes (%) (Auto) % (1.0-10.0) Eosinophils (%) (Auto) % (0.0-3.0) Basophils (%) (Auto) % (0.0-2.0) Differential Total Cells Counted 100 Neutrophils % (Manual) 81 % (45-75) H Lymphocytes % (Manual) 11 % (20-45) L Monocytes % (Manual) 6 % (1-10) Eosinophils % (Manual) 2 % (0-3) Basophils % (Manual) 0 % (0-2) Band Neutrophils 0 % (0-8) Platelet Estimate Decreased L Platelet Morphology Clumped Platelets 1+ Hypochromasia 1+ Anisocytosis 1+ Erythrocyte Sedimentation Rate 132 MM/HR (0-20) H Reticulocyte Count 0.9 % (0.5-2.0) Sodium Level 144 MMOL/L (136-145) Potassium Level 4.9 MMOL/L (3.5-5.1) Chloride Level 106 MMOL/L (98-107) Carbon Dioxide Level 24 MMOL/L (21-32) Anion Gap 14 mmol/L (5-15) Blood Urea Nitrogen 167 mg/dL (7-18) H Creatinine 4.9 MG/DL (0.55-1.30) H Estimat Glomerular Filtration Rate 11.4 mL/min (>60) Glucose Level 141 MG/DL (74-106) H Uric Acid 10.4 MG/DL (2.6-7.2) H Calcium Level 7.0 MG/DL (8.5-10.1) L Phosphorus Level 6.4 MG/DL (2.5-4.9) H Magnesium Level 1.8 MG/DL (1.8-2.4) Total Bilirubin 0.4 MG/DL (0.2-1.0) Aspartate Amino Transf (AST/SGOT) 62 U/L (15-37) H Alanine Aminotransferase (ALT/SGPT) 24 U/L (12-78) Alkaline Phosphatase 92 U/L (46-116) Lactate Dehydrogenase 234 U/L (81-234) Troponin I 0.140 ng/mL (0.000-0.056) C-Reactive Protein, Quantitative 25.1 mg/dL (0.00-0.90) H Pro-B-Type Natriuretic Peptide 68342 pg/mL (0-125) H Total Protein 5.9 G/DL (6.4-8.2) L Albumin 0.9 G/DL (3.4-5.0) L Globulin 5.0 g/dL Albumin/Globulin Ratio 0.2 (1.0-2.7) L Digoxin Level 1.7 NG/ML (0.5-2.0) Dennis Woodall MD Jan 27, 2020 12:45
--- NOTE | 2020-01-27 12:55 | Internal Med Progress Note ---
Subjective Date of Service: Jan 27, 2020 Physician Name Bunny Morocho Attending Physician Danis Wolfe MD Current Medications Medications (Trade) Dose Ordered Sig/Margarette Route PRN Reason Start Time Stop Time Status Last Admin Dose Admin Acetaminophen (Tylenol) 650 mg Q4H PRN ORAL fever 01/22/20 08:15 02/21/20 08:14 01/27/20 04:18 Allopurinol (allopurinoL) 300 mg DAILY GT 01/27/20 09:00 02/26/20 08:59 01/27/20 08:52 Chlorhexidine Gluconate (Flaca-Hex 2%) 1 applic DAILY@2000 TOPIC 01/26/20 20:00 04/25/20 19:59 01/26/20 21:26 Daptomycin 400 mg/ Sodium Chloride 55 ml @ 100 mls/hr Q48H IV 01/25/20 12:00 02/01/20 11:59 01/27/20 12:20 Heparin Sodium (Porcine) (Heparin 5000 units/ml) 5,000 units EVERY 12 HOURS SUBQ 01/22/20 21:00 03/07/20 20:59 01/24/20 20:56 Lorazepam (Ativan 2mg/ml 1ml) 2 mg Q2H PRN IV For Anxiety 01/22/20 08:15 01/29/20 08:14 Meropenem 500 mg/ Sodium Chloride 55 ml @ 110 mls/hr Q12H IVPB 01/22/20 14:00 01/31/20 23:59 01/27/20 01:14 Midodrine (Pro-Amatine) 10 mg Q8HR GT 01/24/20 14:00 04/23/20 13:59 01/27/20 05:37 Morphine Sulfate (Morphine Sulfate) 4 mg Q4H PRN IVP Severe Pain (Pain Scale 7-10) 01/22/20 08:15 01/29/20 08:14 Norepinephrine Bitartrate 16 mg/ Dextrose 500 ml @ 0 mls/hr Q24H IV 01/27/20 09:00 02/26/20 08:59 01/27/20 09:13 Ondansetron HCl (Zofran) 4 mg Q6H PRN IVP Nausea & Vomiting 01/22/20 08:15 02/21/20 08:14 Pantoprazole (Protonix) 40 mg Q12HR IV 01/22/20 09:30 02/21/20 09:29 01/27/20 08:53 Phenylephrine HCl 50 mg/Dextrose 250 ml @ 0 mls/hr Q24H IV 01/27/20 07:03 02/26/20 07:02 01/27/20 10:26 Polyethylene Glycol (Miralax) 17 gm DAILYPRN PRN ORAL Constipation 01/22/20 08:15 02/21/20 08:14 Sodium Bicarbonate 100 ml/Dextrose/ Sodium Chloride 1,100 ml @ 100 mls/hr Q11H IV 01/25/20 09:00 02/24/20 08:59 01/27/20 04:17 Sodium Polystyrene Sulfonate (Kayexalate) 30 gm BID ORAL 01/26/20 18:00 01/28/20 17:59 01/27/20 08:53 Sodium Citrate (Bicitra) 30 ml EVERY 6 HOURS GT 01/24/20 18:00 02/23/20 17:59 01/27/20 12:20 Allergies: Coded Allergies: NSAIDS (NON-STEROIDAL ANTI-INFLAMMA (Unverified Allergy, Unknown, 11/27/18) PIPERACILLIN (Unverified Allergy, Unknown, 01/25/19) tolerates carbapenem TAZOBACTAM (Unverified Allergy, Unknown, 11/27/18) Uncoded Allergies: NSAID (Allergy, Unknown, 09/14/18) ROS Limited/Unobtainable: Yes Subjective 84 YO M admitted with respiratory failure. Now pneumonia and hypotension. intubated and sedated. Cover for Int Yonis-DR Wolfe. ICU. Continues on pressors Objective Last Vital Signs Date Time Temp Pulse Resp B/P (MAP) Pulse Ox O2 Delivery O2 Flow Rate FiO2 01/27/20 12:00 100.0 116 24 137/55 (82) 25 01/27/20 12:00 Mechanical Ventilator 01/27/20 12:00 40 01/25/20 07:00 30.0 Laboratory Tests Test 01/27/20 03:56 White Blood Count 12.5 K/UL (4.8-10.8) H Red Blood Count 2.59 M/UL (4.70-6.10) L Hemoglobin 7.8 G/DL (14.2-18.0) L Hematocrit 24.9 % (42.0-52.0) L Mean Corpuscular Volume 96 FL (80-99) Mean Corpuscular Hemoglobin 30.2 PG (27.0-31.0) Mean Corpuscular Hemoglobin Concent 31.4 G/DL (32.0-36.0) L Red Cell Distribution Width 16.0 % (11.6-14.8) H Platelet Count 91 K/UL (150-450) #L Mean Platelet Volume 9.2 FL (6.5-10.1) Neutrophils (%) (Auto) % (45.0-75.0) Lymphocytes (%) (Auto) % (20.0-45.0) Monocytes (%) (Auto) % (1.0-10.0) Eosinophils (%) (Auto) % (0.0-3.0) Basophils (%) (Auto) % (0.0-2.0) Differential Total Cells Counted 100 Neutrophils % (Manual) 81 % (45-75) H Lymphocytes % (Manual) 11 % (20-45) L Monocytes % (Manual) 6 % (1-10) Eosinophils % (Manual) 2 % (0-3) Basophils % (Manual) 0 % (0-2) Band Neutrophils 0 % (0-8) Platelet Estimate Decreased L Platelet Morphology Clumped Platelets 1+ Hypochromasia 1+ Anisocytosis 1+ Erythrocyte Sedimentation Rate 132 MM/HR (0-20) H Reticulocyte Count 0.9 % (0.5-2.0) Sodium Level 144 MMOL/L (136-145) Potassium Level 4.9 MMOL/L (3.5-5.1) Chloride Level 106 MMOL/L (98-107) Carbon Dioxide Level 24 MMOL/L (21-32) Anion Gap 14 mmol/L (5-15) Blood Urea Nitrogen 167 mg/dL (7-18) H Creatinine 4.9 MG/DL (0.55-1.30) H Estimat Glomerular Filtration Rate 11.4 mL/min (>60) Glucose Level 141 MG/DL (74-106) H Uric Acid 10.4 MG/DL (2.6-7.2) H Calcium Level 7.0 MG/DL (8.5-10.1) L Phosphorus Level 6.4 MG/DL (2.5-4.9) H Magnesium Level 1.8 MG/DL (1.8-2.4) Total Bilirubin 0.4 MG/DL (0.2-1.0) Aspartate Amino Transf (AST/SGOT) 62 U/L (15-37) H Alanine Aminotransferase (ALT/SGPT) 24 U/L (12-78) Alkaline Phosphatase 92 U/L (46-116) Lactate Dehydrogenase 234 U/L (81-234) Troponin I 0.140 ng/mL (0.000-0.056) C-Reactive Protein, Quantitative 25.1 mg/dL (0.00-0.90) H Pro-B-Type Natriuretic Peptide 99113 pg/mL (0-125) H Total Protein 5.9 G/DL (6.4-8.2) L Albumin 0.9 G/DL (3.4-5.0) L Globulin 5.0 g/dL Albumin/Globulin Ratio 0.2 (1.0-2.7) L Digoxin Level 1.7 NG/ML (0.5-2.0) Intake and Output 01/26/20 01/27/20 19:00 07:00 Intake Total 1771.25 ml 2006.5975 ml Output Total 35 ml 15 ml Balance 1736.25 ml 1992.5975 ml Intake IV Total 1401.25 ml 2007.5975 ml Tube Feeding 270 ml Other 100 ml Output Urine Total 35 ml 15 ml # Bowel Movements 1 5 Objective PHYSICAL EXAMINATION: GENERAL: The patient is contracted, thin-appearing male, in no apparent distress. HEENT: Eyes, pupils are equal and responsive to light and accommodation. Extraocular movements are intact. NECK: Supple without lymphadenopathy. There is trachea midline noted. There is no erythema about the trachea. CHEST: Mech vent; Decreased breath sounds at bilateral bases with expiratory wheezes, otherwise without rales. CARDIOVASCULAR EXAM: Tachycardic, regular rate. S1, S2 normal without murmurs, rubs, or gallops. ABDOMEN: Soft, nontender, and nondistended. Positive bowel sounds. No evidence of hepatosplenomegaly. Currently, no rebound or guarding noted. EXTREMITIES: Negative for clubbing, cyanosis, or edema. RECTAL/GENITAL: Not performed. NEUROLOGIC: Unable to assess. Assessment/Plan Assessment/Plan ASSESSMENT: This is an 84-year-old male. 1. Hypoxemic respiratory failure. 2. Pneumonia=proteus mirabilis 3. Dysphagia. 4. Functional quadriplegia. 5. Alzheimer's dementia. 6. Hdwng-vs-vvzvrgh renal failure. 7. Sepsis=citrobacter 8. Hyperkalemia TREATMENT: 1. Hypoxemic respiratory failure/pneumonia. A Pulmonary consultation has been obtained with Dr. Dennis Woodall. The patient is currently intubated in the intensive care unit. 2. Antibiotics= meropenem and Daptomycin. ID=Dr Dorantes. A rapid COVID-19 test was reported as negative. 2. History of dysphagia. The patient is status post PEG placement. 3. Functional quadriplegia. 4. Alzheimer's dementia. 5. Jkxby-kn-pcnbolx renal failure/hyperkalemia A Nephrology consultation has been obtained with Dr. Ronnie Guevara. Continue Bunny Adams MD Jan 27, 2020 12:55
--- NOTE | 2020-01-27 14:23 | Surgery Progress Note ---
Surgery Progress Note Subjective Additional Comments hypotensive unstable hold CT until stable drainage less since tf held Objective Last 24 Hour Vital Signs Date Time Temp Pulse Resp B/P (MAP) Pulse Ox O2 Delivery O2 Flow Rate FiO2 01/27/20 13:30 118 27 106/52 (70) 95 01/27/20 13:00 119 24 115/53 (73) 95 01/27/20 12:30 116 25 121/57 (78) 97 01/27/20 12:00 100.0 116 24 137/55 (82) 25 01/27/20 12:00 115 01/27/20 12:00 Mechanical Ventilator 01/27/20 12:00 40 01/27/20 11:30 112 24 108/57 (74) 96 01/27/20 11:21 115 25 40 01/27/20 11:21 115 25 97 Mechanical Ventilator 40 01/27/20 11:00 113 22 106/52 (70) 96 01/27/20 10:30 118 25 115/50 (71) 95 01/27/20 10:26 113 77/41 01/27/20 10:00 114/52 01/27/20 10:00 138 26 95/53 (67) 95 01/27/20 09:30 126 25 114/52 (72) 97 01/27/20 09:13 75/44 01/27/20 09:00 126 25 75/44 (54) 97 01/27/20 09:00 75/44 01/27/20 08:30 126 25 85/50 (62) 97 01/27/20 08:00 127 01/27/20 08:00 Mechanical Ventilator 01/27/20 08:00 91/50 01/27/20 08:00 99.8 126 25 91/50 (64) 97 01/27/20 08:00 40 01/27/20 07:30 126 25 102/50 (67) 97 01/27/20 07:24 126 24 40 01/27/20 07:00 126 25 97/51 (66) 97 01/27/20 06:45 125 25 104/56 (72) 97 01/27/20 06:30 125 26 01/27/20 06:30 125 23 96/49 (65) 97 01/27/20 06:15 125 24 89/51 (64) 98 01/27/20 06:00 126 23 92/50 (64) 99 01/27/20 05:45 131 29 110/54 (72) 100 01/27/20 05:35 114 27 122/57 (78) 97 01/27/20 05:30 89 25 72/47 (55) 97 01/27/20 05:15 100 30 94/82 (86) 96 01/27/20 05:00 99.1 130 25 94/59 (71) 99 01/27/20 04:51 75/49 01/27/20 04:48 99.1 01/27/20 04:45 135 27 75/49 (58) 98 01/27/20 04:36 128 28 82/53 (63) 98 01/27/20 04:33 133 29 74/48 (57) 97 01/27/20 04:32 135 28 71/48 (56) 97 01/27/20 04:30 133 29 80/48 (59) 97 01/27/20 04:30 80/48 01/27/20 04:05 119 29 85/52 (63) 97 01/27/20 04:00 40 01/27/20 04:00 Mechanical Ventilator 01/27/20 04:00 100.6 116 28 82/41 (55) 97 01/27/20 03:30 73/42 01/27/20 03:30 122 29 80/40 (53) 95 01/27/20 03:26 136 29 40 01/27/20 03:24 120 28 73/42 (52) 95 01/27/20 03:05 116 01/27/20 03:00 116 30 75/45 (55) 94 01/27/20 02:00 122 31 98/50 (66) 96 01/27/20 01:30 108 25 119/45 (69) 96 01/27/20 01:13 113 32 88/38 (55) 94 01/27/20 01:00 109 30 75/42 (53) 94 01/27/20 00:30 111 31 95/44 (61) 93 01/27/20 00:00 99.8 109 31 99/47 (64) 95 01/27/20 00:00 Mechanical Ventilator 01/26/20 23:00 108 26 96/56 (69) 96 01/26/20 23:00 111 01/26/20 22:54 110 31 40 01/26/20 22:32 107 31 96/43 (60) 94 01/26/20 22:30 109 31 78/45 (56) 94 01/26/20 22:00 107 32 90/43 (59) 95 20 21:45 91/46 01/26/20 21:30 110 31 91/46 (61) 94 01/26/20 21:00 111 32 82/43 (56) 95 01/26/20 20:31 109 33 80/45 (57) 94 01/26/20 20:30 109 34 78/46 (57) 94 01/26/20 20:00 100.5 105 34 87/51 (63) 95 01/26/20 20:00 Mechanical Ventilator 01/26/20 20:00 40 01/26/20 19:38 110 01/26/20 19:30 107 33 93/46 (62) 94 01/26/20 19:00 99.4 111 32 87/46 (60) 95 01/26/20 18:50 114 33 40 01/26/20 18:30 109 33 90/46 (61) 91 01/26/20 18:00 108 32 85/47 (60) 92 01/26/20 17:30 111 33 124/54 (77) 92 01/26/20 17:00 104 27 92/48 (63) 92 01/26/20 16:30 109 30 104/51 (68) 98 01/26/20 16:00 104 01/26/20 16:00 30 01/26/20 16:00 104 30 109/58 (75) 92 01/26/20 16:00 Mechanical Ventilator 01/26/20 15:30 106 29 113/46 (68) 93 01/26/20 15:20 103 28 30 01/26/20 15:00 109 28 101/73 (82) 93 01/26/20 14:30 112 28 103/63 (76) 94 I&O Intake and Output 01/26/20 01/27/20 19:00 07:00 Intake Total 1771.25 ml 2006.5975 ml Output Total 35 ml 15 ml Balance 1736.25 ml 1991.5975 ml Intake IV Total 1401.25 ml 2006.5975 ml Tube Feeding 270 ml Other 100 ml Output Urine Total 35 ml 15 ml # Bowel Movements 1 5 Dressing: saturated Cardiovascular: RSR, other Respiratory: decreased breath sounds, other Abdomen: soft, non-tender, present bowel sounds, other Extremities: no tenderness, no cyanosis Laboratory Tests Test 01/27/20 03:56 White Blood Count 12.5 K/UL (4.8-10.8) H Red Blood Count 2.59 M/UL (4.70-6.10) L Hemoglobin 7.8 G/DL (14.2-18.0) L Hematocrit 24.9 % (42.0-52.0) L Mean Corpuscular Volume 96 FL (80-99) Mean Corpuscular Hemoglobin 30.2 PG (27.0-31.0) Mean Corpuscular Hemoglobin Concent 31.4 G/DL (32.0-36.0) L Red Cell Distribution Width 16.0 % (11.6-14.8) H Platelet Count 91 K/UL (150-450) #L Mean Platelet Volume 9.2 FL (6.5-10.1) Neutrophils (%) (Auto) % (45.0-75.0) Lymphocytes (%) (Auto) % (20.0-45.0) Monocytes (%) (Auto) % (1.0-10.0) Eosinophils (%) (Auto) % (0.0-3.0) Basophils (%) (Auto) % (0.0-2.0) Differential Total Cells Counted 100 Neutrophils % (Manual) 81 % (45-75) H Lymphocytes % (Manual) 11 % (20-45) L Monocytes % (Manual) 6 % (1-10) Eosinophils % (Manual) 2 % (0-3) Basophils % (Manual) 0 % (0-2) Band Neutrophils 0 % (0-8) Platelet Estimate Decreased L Platelet Morphology Clumped Platelets 1+ Hypochromasia 1+ Anisocytosis 1+ Erythrocyte Sedimentation Rate 132 MM/HR (0-20) H Reticulocyte Count 0.9 % (0.5-2.0) Sodium Level 144 MMOL/L (136-145) Potassium Level 4.9 MMOL/L (3.5-5.1) Chloride Level 106 MMOL/L (98-107) Carbon Dioxide Level 24 MMOL/L (21-32) Anion Gap 14 mmol/L (5-15) Blood Urea Nitrogen 167 mg/dL (7-18) H Creatinine 4.9 MG/DL (0.55-1.30) H Estimat Glomerular Filtration Rate 11.4 mL/min (>60) Glucose Level 141 MG/DL (74-106) H Uric Acid 10.4 MG/DL (2.6-7.2) H Calcium Level 7.0 MG/DL (8.5-10.1) L Phosphorus Level 6.4 MG/DL (2.5-4.9) H Magnesium Level 1.8 MG/DL (1.8-2.4) Total Bilirubin 0.4 MG/DL (0.2-1.0) Aspartate Amino Transf (AST/SGOT) 62 U/L (15-37) H Alanine Aminotransferase (ALT/SGPT) 24 U/L (12-78) Alkaline Phosphatase 92 U/L (46-116) Lactate Dehydrogenase 234 U/L (81-234) Troponin I 0.140 ng/mL (0.000-0.056) C-Reactive Protein, Quantitative 25.1 mg/dL (0.00-0.90) H Pro-B-Type Natriuretic Peptide 21065 pg/mL (0-125) H Total Protein 5.9 G/DL (6.4-8.2) L Albumin 0.9 G/DL (3.4-5.0) L Globulin 5.0 g/dL Albumin/Globulin Ratio 0.2 (1.0-2.7) L Digoxin Level 1.7 NG/ML (0.5-2.0) Plan Problems: (1) Dehydration (2) Urinary tract infection (3) Ventilator dependent (4) Bilateral pleural effusion (5) Decubitus skin ulcer Assessment & Plan: Pt presented on admission with in grossly unkempt state, with Contractures and multiple Pressure injuries.Skin turgor is poor. Color is dusky. Generalized dry,scaly skin. Gastrostomy stoma is eroded and oozing moderate amt malodorous,Black,mud consistency exudate. Clusters of Unstageabloe Pressure injury Thoracic Spine. Base of wound has multiple small islands of slough with soft erythematous bridges giving wound appearance of multiple wounds. Area measuring (L)4cm x (W)3.6cm. In close proximity, to L of thoracic spine is a Partial thickness Pressure injury(L)5cm x (W)3.5cm. Base of wound is cade with macerated borders.Small amt sanguineous exudate noted. Resolving Full thickness 4 Pressure injury R Trochanter(L)0.7cm x (W)1.2cm, slight tunneled area at 11o'clock by 0.3cm. Surrounding pink epithelial bordered by hyperpigmentation. NO odor or exudate noted. Partial thickness shearing noted over Previously compromised skin (L)9cm x (W) 10.5cm. Base of wound is erythematous with multiple Scattered satellite lesions that are oozing sanguineous exudate. Unstageable Pressure injury distally, medial R Tibia(L)1.3cm x (W)1.1 cm . Base of wound is 100% yellow slough with marginal erythematous borders. No odor or exudate noted. Xerosis skin periwound. Pressure injury R Hallux. Base of wound is 40% dry eschar ,60% pink epithelial. No exudate noted. No erythema or fluctuance periwound. R Heel is boggy with non-blanchable erythema. Wound Plantar R foot(L)0.6cm x (W)0.8cm. 100% slough at base of wound . Marginal erythema along edges. Periwound is fluctuant and erythematous. At web space between R 1st and 2nd metatarsals is a Partial Thickness wound that is cade and oozing small amt sanguineous exudate. At Plantar aspect of R 3rd metatarsal noted to be oozing small amt Sanguineous exudate. Assessment of wound is not fully appreciated secondary to clubbing of metatarsals. Swabbed with Betadine and small gauze pressure drsg applied. Resolving Pressure Injury L Heel(L)6.5cm x (W)5cm. Base of wound is 90% pink epithelial, 10% dry eschar. NO odor or exudate noted . Scattered small dry,black scabs noted to R and L dorsal aspects feet ,including dorsal aspects of metatarsals both feet. Cleanse wounds Thoracic Spine with Saline. Apply TheraHoney. Apply Cavilon Skin Barrier Periwound. Cover with Optifoam drsg.Change every 3 days and prn. Apply Moisture Barrier Paste to Buttocks. Cover with Optifoam drsg. Change every 3 days and prn. Apply Betadine to wounds both feet. Cover with Abd pads and wrap each foot with Kerlix drsg. Wash GT site with Soap and Water and apply Loose Gauze drsg Daily and prn. Cleanse wound R trochanter with saline. Apply Therahoney,Apply Cavilon Periwound. Cover with Optifoam drsg. Change every 3 days and prn. Cleanse wounds L hip and L trochanter with Saline. Apply Therahoney. Apply Cavilon periwound .Cover with Optifoam drsg every 3 days and prn. Cleanse wounds L scapula with Saline. Apply TheraHoney. Apply Cavilon periwound.Cover with Optifoam drsg every 3 days and prn. Apply Triad paste to sacrum ,groin and scrotum with each Incontinence care. Cleanse wounds R and L foot with Saline. Apply TheraHoney. Cover wounds with Abd pads and wrap both feet with Kerlix gauze every 3 days and prn. Air Fluidized mattress. Reposition at least every 2hours or as tolerated. Place pillow between knees. Off-load heels with pillow. nutritional; optimization (6) funtional quadriplegia (7) Sepsis Assessment & Plan: labs reviewed on abx cxr noted unchanged wean as tolerated tf chris lira will monitor worsening drainage around trach possible fistula vs abscess CT pending (8) Chronic respiratory failure (9) Pneumonia (10) Acute on chronic respiratory failure Assessment & Plan: Bilateral interstitial opacities, left basilar pleural fluid and/or consolidation, left lung volume loss appear unchanged. Tracheostomy remains. 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 2) Swallowing difficulty r/t respiratory failure as evidenced by pt is trach/ vent dep and GT dependent. CURRENT TF:NPO ENTERAL NUTRITION RECOMMENDATIONS: Nepro @ 45ml/hr x 24 hrs to provide 1080ml, 1944kcal, 87g prot, 785ml free water FEED W/ HEMODYNAMIC STABILITY -> Rec Nepro at this time due to ARF, K consistently elev, now 6.2* -> Initiate Nepro @ 15ml/hr x 6hrs, advance 10ml q 4-6 hrs as tolerated to goal rate -> HOB over 30 degrees/ water flush per MD Without hemodynamic stability, rec trophic feeding of Nepro @ 5ml/hr x 24hrs ADDITIONAL RECOMMENDATIONS: * PER SNF: HT=72 inches, GX=188lqc (01/08) vs EMR HT= 65" inches and XL=075dim -> RECALIBRATE BEDSCALE * Monitor renal fxn and lytes, need for continued rec for Nepro * Monitor HD stability: NE @ 6mcg * Wound healing: add vit C 500mg BID, Edmond BID w/ TF order * Consider accuchecks for close BG monitoring for hypoglycemia -> cont D5 while pt NPO (13) Protein-calorie malnutrition, severe (14) At high risk for aspiration (15) ATN (acute tubular necrosis) (16) Severe anemia (17) Encephalopathy acute Stanislav Avelar Jan 27, 2020 14:23
--- NOTE | 2020-01-27 16:00 | Nephrology Progress Note ---
Assessment/Plan Problem List: (1) FRIDA (acute kidney injury) (2) Sepsis (3) Ventilator dependent (4) Bilateral pleural effusion (5) Decubitus skin ulcer (6) Electrolyte imbalance Assessment: Hyperkalemia, hypernatremia Assessment FRIDA Dehydration, hypernatremia, hyperkalemia Anemia Chronic vent dependent, with superimposed acute component Bilateral pleural effusion Sepsis, leukocytosis, UTI Functional quadriplegia History of coronary artery disease and VT Multiple decubiti Chronic malnutrition Plan January 26: Serum potassium within normal limit. Continues to be on Kayexalate. Digoxin level down to 1.7. Continue per consultants. Continue to do poorly. Patient DNR. January 25: Potassium remains elevated. Kayexalate given. IV digoxin discontinued yesterday. Doing poorly. Continue present management. January 24: Potassium still high. Kayexalate every 6 hours ordered. Patient continues to do poorly. Digoxin level is 2, will hold IV digoxin for now. January 23: Potassium remains high. Kayexalate given. Bicitra started. Midodrin started. Patient DNR now. Continue per consultants. Overall prognosis poor. Hemodynamically unstable for dialysis treatment. Per order. Patient is doing poorly. No urine output. Labs reviewed. Discussed with RN and Miles. Kayexalate given for hyperkalemia. IV D5 and a half normal saline Pressors Antibiotics Skin care Continue per consultants Monitor renal parameters Avoid nephrotoxic's Patient now DNR. No candidate for dialysis treatment due to multiple medical issues, sepsis, poor prognosis. Subjective ROS Limited/Unobtainable: Yes Objective Objective Last 24 Hour Vital Signs Date Time Temp Pulse Resp B/P (MAP) Pulse Ox O2 Delivery O2 Flow Rate FiO2 01/27/20 14:39 124 30 40 01/27/20 13:30 118 27 106/52 (70) 95 01/27/20 13:00 119 24 115/53 (73) 95 01/27/20 12:30 116 25 121/57 (78) 97 01/27/20 12:00 100.0 116 24 137/55 (82) 25 01/27/20 12:00 115 01/27/20 12:00 Mechanical Ventilator 01/27/20 12:00 40 01/27/20 11:30 112 24 108/57 (74) 96 7/24/20 11:21 115 25 40 01/27/20 11:21 115 25 97 Mechanical Ventilator 40 01/27/20 11:00 113 22 106/52 (70) 96 01/27/20 10:30 118 25 115/50 (71) 95 01/27/20 10:26 113 77/41 01/27/20 10:00 114/52 01/27/20 10:00 138 26 95/53 (67) 95 01/27/20 09:30 126 25 114/52 (72) 97 01/27/20 09:13 75/44 01/27/20 09:00 126 25 75/44 (54) 97 01/27/20 09:00 75/44 01/27/20 08:30 126 25 85/50 (62) 97 01/27/20 08:00 127 01/27/20 08:00 Mechanical Ventilator 01/27/20 08:00 91/50 01/27/20 08:00 99.8 126 25 91/50 (64) 97 01/27/20 08:00 40 01/27/20 07:30 126 25 102/50 (67) 97 01/27/20 07:24 126 24 40 01/27/20 07:00 126 25 97/51 (66) 97 01/27/20 06:45 125 25 104/56 (72) 97 01/27/20 06:30 125 26 01/27/20 06:30 125 23 96/49 (65) 97 01/27/20 06:15 125 24 89/51 (64) 98 01/27/20 06:00 126 23 92/50 (64) 99 01/27/20 05:45 131 29 110/54 (72) 100 01/27/20 05:35 114 27 122/57 (78) 97 01/27/20 05:30 89 25 72/47 (55) 97 01/27/20 05:15 100 30 94/82 (86) 96 01/27/20 05:00 99.1 130 25 94/59 (71) 99 01/27/20 04:51 75/49 01/27/20 04:48 99.1 01/27/20 04:45 135 27 75/49 (58) 98 01/27/20 04:36 128 28 82/53 (63) 98 01/27/20 04:33 133 29 74/48 (57) 97 01/27/20 04:32 135 28 71/48 (56) 97 01/27/20 04:30 133 29 80/48 (59) 97 20 04:30 80/48 01/27/20 04:05 119 29 85/52 (63) 97 01/27/20 04:00 40 01/27/20 04:00 Mechanical Ventilator 01/27/20 04:00 100.6 116 28 82/41 (55) 97 01/27/20 03:30 73/42 01/27/20 03:30 122 29 80/40 (53) 95 01/27/20 03:26 136 29 40 01/27/20 03:24 120 28 73/42 (52) 95 01/27/20 03:05 116 01/27/20 03:00 116 30 75/45 (55) 94 01/27/20 02:00 122 31 98/50 (66) 96 01/27/20 01:30 108 25 119/45 (69) 96 01/27/20 01:13 113 32 88/38 (55) 94 01/27/20 01:00 109 30 75/42 (53) 94 01/27/20 00:30 111 31 95/44 (61) 93 01/27/20 00:00 99.8 109 31 99/47 (64) 95 01/27/20 00:00 Mechanical Ventilator 01/26/20 23:00 108 26 96/56 (69) 96 01/26/20 23:00 111 01/26/20 22:54 110 31 40 01/26/20 22:32 107 31 96/43 (60) 94 20 22:30 109 31 78/45 (56) 94 01/26/20 22:00 107 32 90/43 (59) 95 20 21:45 91/46 01/26/20 21:30 110 31 91/46 (61) 94 01/26/20 21:00 111 32 82/43 (56) 95 01/26/20 20:31 109 33 80/45 (57) 94 01/26/20 20:30 109 34 78/46 (57) 94 01/26/20 20:00 100.5 105 34 87/51 (63) 95 7/23/20 20:00 Mechanical Ventilator 01/26/20 20:00 40 01/26/20 19:38 110 01/26/20 19:30 107 33 93/46 (62) 94 01/26/20 19:00 99.4 111 32 87/46 (60) 95 01/26/20 18:50 114 33 40 01/26/20 18:30 109 33 90/46 (61) 91 01/26/20 18:00 108 32 85/47 (60) 92 01/26/20 17:30 111 33 124/54 (77) 92 01/26/20 17:00 104 27 92/48 (63) 92 01/26/20 16:30 109 30 104/51 (68) 98 01/26/20 16:00 104 01/26/20 16:00 30 01/26/20 16:00 104 30 109/58 (75) 92 01/26/20 16:00 Mechanical Ventilator Intake and Output 01/26/20 01/27/20 19:00 07:00 Intake Total 1771.25 ml 5975 ml Output Total 35 ml 15 ml Balance 1736.25 ml 5975 ml Intake IV Total 1401.25 ml 2006.5975 ml Tube Feeding 270 ml Other 100 ml Output Urine Total 35 ml 15 ml # Bowel Movements 1 5 Laboratory Tests 01/27/20 03:56: White Blood Count 12.5H, Red Blood Count 2.59L, Hemoglobin 7.8L, Hematocrit 24.9L, Mean Corpuscular Volume 96, Mean Corpuscular Hemoglobin 30.2, Mean Corpuscular Hemoglobin Concent 31.4L, Red Cell Distribution Width 16.0H, Platelet Count 91#L, Mean Platelet Volume 9.2, Neutrophils (%) (Auto) , Lymphocytes (%) (Auto) , Monocytes (%) (Auto) , Eosinophils (%) (Auto) , Basophils (%) (Auto) , Differential Total Cells Counted 100, Neutrophils % ( Manual) 81H, Lymphocytes % (Manual) 11L, Monocytes % (Manual) 6, Eosinophils % ( Manual) 2, Basophils % (Manual) 0, Band Neutrophils 0, Platelet Estimate DecreasedL, Platelet Morphology , Clumped Platelets 1+, Hypochromasia 1+, Anisocytosis 1+, Erythrocyte Sedimentation Rate 132H, Reticulocyte Count 0.9, Sodium Level 144, Potassium Level 4.9, Chloride Level 106, Carbon Dioxide Level 24, Anion Gap 14, Blood Urea Nitrogen 167H, Creatinine 4.9H, Estimat Glomerular Filtration Rate 11.4, Glucose Level 141H, Uric Acid 10.4H, Calcium Level 7.0L, Phosphorus Level 6.4H, Magnesium Level 1.8, Total Bilirubin 0.4, Aspartate Amino Transf (AST/SGOT) 62H, Alanine Aminotransferase (ALT/SGPT) 24, Alkaline Phosphatase 92, Lactate Dehydrogenase 234, Troponin I 0.140H, C-Reactive Protein , Quantitative 25.1H, Pro-B-Type Natriuretic Peptide 35784E, Total Protein 5.9L , Albumin 0.9L, Globulin 5.0, Albumin/Globulin Ratio 0.2L, Digoxin Level 1.7 Height (Feet): 5 Height (Inches): 5.00 Weight (Pounds): 141 General Appearance: mild distress EENT: other - Trach and vent Cardiovascular: tachycardia Respiratory/Chest: decreased breath sounds Abdomen: distended, other - PEG Ronnie Guevara MD Jan 27, 2020 16:00
--- NOTE | 2020-01-27 19:14 | Cardiology Progress Note ---
Assessment/Plan Assessment/Plan 1. Septic shock. 2. citrobacter bacteremia 3. Respiratory failure, acute on chronic. 4. Pneumonia. 5. Chronic respiratory failure. 6. Atrial fibrillation, paroxysmal in nature. 7. Contracted extremities. 8. Decubitus ulcers. 9. Hypernatremia. 10. Renal failure. 11. thrombocytopenia 12. abn cardiac enzyme due to demand i was called by staff early this am regarding low pt on mx dose of Levophed , lisa was added sinustachy no afib tele personally reviewed sinus amiod if had recurrent of afib prognosis is poor abx vent support now covid neg but remian in isolation per id recommendation pui prelim echo ef 55% no sig valvular dysfunction dialysis as hemodynamically allowed pressors added lisa to levophed dnr d/wrn plt better today still has sig secetion around the tach per rn repeat bc coag neg staph likley contaminet still febrile Subjective ROS Limited/Unobtainable: Yes Objective Last 24 Hour Vital Signs Date Time Temp Pulse Resp B/P (MAP) Pulse Ox O2 Delivery O2 Flow Rate FiO2 01/27/20 18:30 121 27 108/54 (72) 97 01/27/20 18:00 119 25 103/64 (77) 99 01/27/20 17:30 118 28 139/82 (101) 98 01/27/20 17:13 111/51 01/27/20 17:13 110 111/51 01/27/20 17:00 119 25 111/51 (71) 98 01/27/20 16:30 119 25 111/59 (76) 97 01/27/20 16:00 116 01/27/20 16:00 40 01/27/20 16:00 99.9 118 28 80/66 (71) 97 01/27/20 16:00 Mechanical Ventilator 01/27/20 15:30 118 27 116/52 (73) 99 01/27/20 15:00 118 27 102/78 (86) 96 01/27/20 14:39 124 30 40 01/27/20 14:30 119 26 122/63 (82) 98 01/27/20 14:00 119 26 107/54 (71) 96 01/27/20 13:30 118 27 106/52 (70) 95 01/27/20 13:00 119 24 115/53 (73) 95 01/27/20 12:30 116 25 121/57 (78) 97 01/27/20 12:00 100.0 116 24 137/55 (82) 25 01/27/20 12:00 115 01/27/20 12:00 Mechanical Ventilator 01/27/20 12:00 40 01/27/20 11:30 112 24 108/57 (74) 96 01/27/20 11:21 115 25 40 01/27/20 11:21 115 25 97 Mechanical Ventilator 40 01/27/20 11:00 113 22 106/52 (70) 96 01/27/20 10:30 118 25 115/50 (71) 95 01/27/20 10:26 113 77/41 01/27/20 10:00 114/52 01/27/20 10:00 138 26 95/53 (67) 95 01/27/20 09:30 126 25 114/52 (72) 97 01/27/20 09:13 75/44 01/27/20 09:00 126 25 75/44 (54) 97 01/27/20 09:00 75/44 01/27/20 08:30 126 25 85/50 (62) 97 01/27/20 08:00 127 01/27/20 08:00 Mechanical Ventilator 01/27/20 08:00 91/50 01/27/20 08:00 99.8 126 25 91/50 (64) 97 01/27/20 08:00 40 01/27/20 07:30 126 25 102/50 (67) 97 01/27/20 07:24 126 24 40 01/27/20 07:00 126 25 97/51 (66) 97 01/27/20 06:45 125 25 104/56 (72) 97 01/27/20 06:30 125 26 01/27/20 06:30 125 23 96/49 (65) 97 01/27/20 06:15 125 24 89/51 (64) 98 01/27/20 06:00 126 23 92/50 (64) 99 01/27/20 05:45 131 29 110/54 (72) 100 01/27/20 05:35 114 27 122/57 (78) 97 01/27/20 05:30 89 25 72/47 (55) 97 01/27/20 05:15 100 30 94/82 (86) 96 01/27/20 05:00 99.1 130 25 94/59 (71) 99 01/27/20 04:51 75/49 01/27/20 04:48 99.1 01/27/20 04:45 135 27 75/49 (58) 98 01/27/20 04:36 128 28 82/53 (63) 98 01/27/20 04:33 133 29 74/48 (57) 97 01/27/20 04:32 135 28 71/48 (56) 97 01/27/20 04:30 133 29 80/48 (59) 97 01/27/20 04:30 80/48 01/27/20 04:05 119 29 85/52 (63) 97 01/27/20 04:00 40 01/27/20 04:00 Mechanical Ventilator 01/27/20 04:00 100.6 116 28 82/41 (55) 97 01/27/20 03:30 73/42 01/27/20 03:30 122 29 80/40 (53) 95 01/27/20 03:26 136 29 40 01/27/20 03:24 120 28 73/42 (52) 95 01/27/20 03:05 116 01/27/20 03:00 116 30 75/45 (55) 94 01/27/20 02:00 122 31 98/50 (66) 96 01/27/20 01:30 108 25 119/45 (69) 96 01/27/20 01:13 113 32 88/38 (55) 94 01/27/20 01:00 109 30 75/42 (53) 94 01/27/20 00:30 111 31 95/44 (61) 93 01/27/20 00:00 99.8 109 31 99/47 (64) 95 01/27/20 00:00 Mechanical Ventilator 01/26/20 23:00 108 26 96/56 (69) 96 01/26/20 23:00 111 01/26/20 22:54 110 31 40 01/26/20 22:32 107 31 96/43 (60) 94 01/26/20 22:30 109 31 78/45 (56) 94 01/26/20 22:00 107 32 90/43 (59) 95 01/26/20 21:45 91/46 01/26/20 21:30 110 31 91/46 (61) 94 01/26/20 21:00 111 32 82/43 (56) 95 01/26/20 20:31 109 33 80/45 (57) 94 01/26/20 20:30 109 34 78/46 (57) 94 01/26/20 20:00 100.5 105 34 87/51 (63) 95 01/26/20 20:00 Mechanical Ventilator 01/26/20 20:00 40 01/26/20 19:38 110 01/26/20 19:30 107 33 93/46 (62) 94 General Appearance: no apparent distress, on vent, patient on isolation, isolation precautions Extremities: other - contracted Intake and Output 01/26/20 01/27/20 19:00 07:00 Intake Total 1771.25 ml 2006.5975 ml Output Total 35 ml 15 ml Balance 1736.25 ml 1991.5975 ml Intake IV Total 1401.25 ml 2006.5975 ml Tube Feeding 270 ml Other 100 ml Output Urine Total 35 ml 15 ml # Bowel Movements 1 5 Laboratory Tests Test 01/27/20 03:56 White Blood Count 12.5 K/UL (4.8-10.8) H Red Blood Count 2.59 M/UL (4.70-6.10) L Hemoglobin 7.8 G/DL (14.2-18.0) L Hematocrit 24.9 % (42.0-52.0) L Mean Corpuscular Volume 96 FL (80-99) Mean Corpuscular Hemoglobin 30.2 PG (27.0-31.0) Mean Corpuscular Hemoglobin Concent 31.4 G/DL (32.0-36.0) L Red Cell Distribution Width 16.0 % (11.6-14.8) H Platelet Count 91 K/UL (150-450) #L Mean Platelet Volume 9.2 FL (6.5-10.1) Neutrophils (%) (Auto) % (45.0-75.0) Lymphocytes (%) (Auto) % (20.0-45.0) Monocytes (%) (Auto) % (1.0-10.0) Eosinophils (%) (Auto) % (0.0-3.0) Basophils (%) (Auto) % (0.0-2.0) Differential Total Cells Counted 100 Neutrophils % (Manual) 81 % (45-75) H Lymphocytes % (Manual) 11 % (20-45) L Monocytes % (Manual) 6 % (1-10) Eosinophils % (Manual) 2 % (0-3) Basophils % (Manual) 0 % (0-2) Band Neutrophils 0 % (0-8) Platelet Estimate Decreased L Platelet Morphology Clumped Platelets 1+ Hypochromasia 1+ Anisocytosis 1+ Erythrocyte Sedimentation Rate 132 MM/HR (0-20) H Reticulocyte Count 0.9 % (0.5-2.0) Sodium Level 144 MMOL/L (136-145) Potassium Level 4.9 MMOL/L (3.5-5.1) Chloride Level 106 MMOL/L (98-107) Carbon Dioxide Level 24 MMOL/L (21-32) Anion Gap 14 mmol/L (5-15) Blood Urea Nitrogen 167 mg/dL (7-18) H Creatinine 4.9 MG/DL (0.55-1.30) H Estimat Glomerular Filtration Rate 11.4 mL/min (>60) Glucose Level 141 MG/DL (74-106) H Uric Acid 10.4 MG/DL (2.6-7.2) H Calcium Level 7.0 MG/DL (8.5-10.1) L Phosphorus Level 6.4 MG/DL (2.5-4.9) H Magnesium Level 1.8 MG/DL (1.8-2.4) Total Bilirubin 0.4 MG/DL (0.2-1.0) Aspartate Amino Transf (AST/SGOT) 62 U/L (15-37) H Alanine Aminotransferase (ALT/SGPT) 24 U/L (12-78) Alkaline Phosphatase 92 U/L (46-116) Lactate Dehydrogenase 234 U/L (81-234) Troponin I 0.140 ng/mL (0.000-0.056) C-Reactive Protein, Quantitative 25.1 mg/dL (0.00-0.90) H Pro-B-Type Natriuretic Peptide 58849 pg/mL (0-125) H Total Protein 5.9 G/DL (6.4-8.2) L Albumin 0.9 G/DL (3.4-5.0) L Globulin 5.0 g/dL Albumin/Globulin Ratio 0.2 (1.0-2.7) L Digoxin Level 1.7 NG/ML (0.5-2.0) Objective per dr fallon Lungs: rales, rhonchi Heart: HR/BP stable Abdomen: soft Extremities: no C/C/E Kenji Shane MD Jan 27, 2020 19:14
[2020-01-27] MEDS: Dyna-Hex 2% Top Sol 2oz TOPIC SCH (20:40)
[2020-01-28] VITALS (30 sets, daily range): BP systolic 90–135; BP diastolic 48–101
[2020-01-28] MEDS: Meropenem 500 MG in NS 55 ML IVPB SCH ×2 (01:03→13:28)
[2020-01-28] MEDS: Phenylephrine 50 MG in D5W 245 ML IV SCH ×3 (01:04→18:48)
[2020-01-28] MEDS: Norepinephrine Bitartrate 16 MG in D5W 500ml 484 ML IV SCH ×3 (01:05→18:47)
[2020-01-28] MEDS: Sodium Bicarbonate 100 ML in D5 1/2NS 1,000 ML IV SCH ×2 (03:00→14:34)
[2020-01-28 05:07] LABS: HEMATOCRIT 25.3 % (42.0-52.0); MEAN CORPUSCULAR VOLUME 96 FL (80-99); RED BLOOD COUNT 2.63 M/UL (4.70-6.10); RED CELL DISTRIBUTION WIDTH 16.1 % (11.6-14.8); WHITE BLOOD COUNT 18.7 K/UL (4.8-10.8)
[2020-01-28] MEDS: Midodrine 10mg tab GT SCH ×3 (05:10→21:36)
[2020-01-28] MEDS: Sodium Citrate 30ml GT SCH ×4 (05:10→23:46)
[2020-01-28 05:16] LABS: ALANINE AMINOTRANSFERASE 15 U/L (12-78); ALBUMIN 0.7 G/DL (3.4-5.0); ALBUMIN/GLOBULIN RATIO 0.1 (1.0-2.7); ALKALINE PHOSPHATASE 84 U/L (46-116); ANION GAP 14 mmol/L (5-15); ASPARTATE AMINO TRANSFERASE 63 U/L (15-37); BILIRUBIN,TOTAL 0.4 MG/DL (0.2-1.0); BLOOD UREA NITROGEN 171 mg/dL (7-18); CALCIUM 6.7 MG/DL (8.5-10.1); CARBON DIOXIDE 23 MMOL/L (21-32); CHLORIDE 102 MMOL/L (98-107); CREATININE 5.1 MG/DL (0.55-1.30); PHOSPHORUS 8.1 MG/DL (2.5-4.9); POTASSIUM 4.3 MMOL/L (3.5-5.1); SODIUM 139 MMOL/L (136-145)
[2020-01-28 08:32] LABS: PLATELET COUNT 109 K/UL (150-450)
[2020-01-28] MEDS ORDERED: NS 275ml ONE (08:46)
[2020-01-28] MEDS: Heparin 5000 units/ml inj SUBQ SCH ×2 (08:57→20:46)
--- NOTE | 2020-01-28 09:17 | General Progress Note ---
Assessment/Plan Problem List: (1) Severe anemia ICD Codes: D64.9 - Anemia, unspecified SNOMED: 010235202 (2) Encephalopathy acute ICD Codes: G93.40 - Encephalopathy, unspecified SNOMED: 08460656, 574610103 (3) ATN (acute tubular necrosis) ICD Codes: N17.0 - Acute kidney failure with tubular necrosis SNOMED: 05544900 (4) Feeding by G-tube ICD Codes: Z93.1 - Gastrostomy status SNOMED: 512632308, 210719455, 916404182 (5) Pneumonia ICD Codes: J18.9 - Pneumonia, unspecified organism SNOMED: 896883106 (6) Chronic respiratory failure ICD Codes: J96.10 - Chronic respiratory failure, unspecified whether with hypoxia or hypercapnia SNOMED: 86717309 Assessment/Plan: fu H&H prn blood transfusion abx per ID respiratory care icu care d/w surg, will hold GTF for now>> but still lots of secretion around the trach CT of the neck and chest, when patient is more stable will fu Subjective ROS Limited/Unobtainable: No Allergies: Coded Allergies: NSAIDS (NON-STEROIDAL ANTI-INFLAMMA (Unverified Allergy, Unknown, 11/27/18) PIPERACILLIN (Unverified Allergy, Unknown, 01/25/19) tolerates carbapenem TAZOBACTAM (Unverified Allergy, Unknown, 11/27/18) Uncoded Allergies: NSAID (Allergy, Unknown, 09/14/18) Objective Last 24 Hour Vital Signs Date Time Temp Pulse Resp B/P (MAP) Pulse Ox O2 Delivery O2 Flow Rate FiO2 01/28/20 08:00 128 27 116/101 (106) 94 01/28/20 07:09 115 19 30 01/28/20 07:00 105/54 01/28/20 07:00 117 27 111/65 (80) 96 01/28/20 06:30 118 26 01/28/20 06:00 95/71 01/28/20 06:00 122 24 104/60 (75) 97 01/28/20 05:00 122 26 113/59 (77) 96 01/28/20 05:00 104/60 01/28/20 04:00 30 01/28/20 04:00 113/59 01/28/20 04:00 99.6 128 26 111/61 (78) 95 01/28/20 04:00 Mechanical Ventilator 01/28/20 03:30 132 24 30 01/28/20 03:01 123 01/28/20 03:00 124 23 122/69 (86) 99 01/28/20 03:00 111/61 01/28/20 02:00 106/64 01/28/20 02:00 127 24 106/64 (78) 99 01/28/20 01:05 98/59 01/28/20 01:04 94/59 01/28/20 01:04 123 94/59 01/28/20 01:00 108/50 01/28/20 01:00 113 26 108/59 (75) 97 01/28/20 00:00 99.8 123 25 114/99 (104) 99 01/28/20 00:00 40 01/28/20 00:00 114/99 01/28/20 00:00 Mechanical Ventilator 01/27/20 23:30 119 25 40 01/27/20 23:02 119 01/27/20 23:00 122 23 114/55 (74) 99 01/27/20 23:00 114/55 01/27/20 22:00 96/53 01/27/20 22:00 121 23 104/57 (73) 99 01/27/20 21:00 119 25 100/56 (71) 99 01/27/20 21:00 100/56 01/27/20 20:00 98.2 123 24 113/56 (75) 99 01/27/20 20:00 Mechanical Ventilator 01/27/20 20:00 40 01/27/20 20:00 113/56 01/27/20 19:45 121 01/27/20 19:30 120 24 113/57 (75) 98 01/27/20 19:30 137 26 40 01/27/20 19:00 120 24 102/66 (78) 98 01/27/20 18:30 121 27 108/54 (72) 97 01/27/20 18:00 119 25 103/64 (77) 99 01/27/20 17:30 118 28 139/82 (101) 98 01/27/20 17:13 111/51 01/27/20 17:13 110 111/51 01/27/20 17:00 119 25 111/51 (71) 98 01/27/20 16:30 119 25 111/59 (76) 97 01/27/20 16:00 116 01/27/20 16:00 40 01/27/20 16:00 99.9 118 28 80/66 (71) 97 01/27/20 16:00 Mechanical Ventilator 01/27/20 15:30 118 27 116/52 (73) 99 01/27/20 15:00 118 27 102/78 (86) 96 01/27/20 14:39 124 30 40 01/27/20 14:30 119 26 122/63 (82) 98 01/27/20 14:00 119 26 107/54 (71) 96 01/27/20 13:30 118 27 106/52 (70) 95 01/27/20 13:00 119 24 115/53 (73) 95 01/27/20 12:30 116 25 121/57 (78) 97 01/27/20 12:00 100.0 116 24 137/55 (82) 25 01/27/20 12:00 115 01/27/20 12:00 Mechanical Ventilator 01/27/20 12:00 40 01/27/20 11:30 112 24 108/57 (74) 96 01/27/20 11:21 115 25 40 01/27/20 11:21 115 25 97 Mechanical Ventilator 40 01/27/20 11:00 113 22 106/52 (70) 96 01/27/20 10:30 118 25 115/50 (71) 95 01/27/20 10:26 113 77/41 01/27/20 10:00 114/52 01/27/20 10:00 138 26 95/53 (67) 95 01/27/20 09:30 126 25 114/52 (72) 97 Intake and Output 01/27/20 01/28/20 19:00 07:00 Intake Total 2271.32964 ml 2353.44 ml Output Total 35 ml 40 ml Balance 2236.66871 ml 2313.44 ml Intake Free Water 90 ml IV Total 2221.37732 ml 2263.44 ml Other 50 ml Output Urine Total 35 ml 40 ml # Bowel Movements 1 Laboratory Tests 01/28/20 04:10: White Blood Count 18.7H, Red Blood Count 2.63L, Hemoglobin 8.0L, Hematocrit 25.3L, Mean Corpuscular Volume 96, Mean Corpuscular Hemoglobin 30.3, Mean Corpuscular Hemoglobin Concent 31.5L, Red Cell Distribution Width 16.1H, Platelet Count 109L, Mean Platelet Volume 9.4, Neutrophils (%) (Auto) , Lymphocytes (%) (Auto) , Monocytes (%) (Auto) , Eosinophils (%) (Auto) , Basophils (%) (Auto) , Differential Total Cells Counted 100, Neutrophils % ( Manual) 86H, Lymphocytes % (Manual) 10L, Monocytes % (Manual) 4, Eosinophils % ( Manual) 0, Basophils % (Manual) 0, Band Neutrophils 0, Platelet Estimate DecreasedL, Platelet Morphology , Clumped Platelets 1+, Hypochromasia 1+, Anisocytosis 1+, Sodium Level 139, Potassium Level 4.3, Chloride Level 102, Carbon Dioxide Level 23, Anion Gap 14, Blood Urea Nitrogen 171H, Creatinine 5.1H , Estimat Glomerular Filtration Rate 10.9, Glucose Level 148H, Calcium Level 6.7L, Phosphorus Level 8.1H, Magnesium Level 1.7L, Total Bilirubin 0.4, Aspartate Amino Transf (AST/SGOT) 63H, Alanine Aminotransferase (ALT/SGPT) 15, Alkaline Phosphatase 84, Total Protein 5.5L, Albumin 0.7L, Globulin 4.8, Albumin /Globulin Ratio 0.1L 01/28/20 07:49: Arterial Blood pH 7.449, Arterial Blood Partial Pressure CO2 32.8L, Arterial Blood Partial Pressure O2 61.1L, Arterial Blood HCO3 22.2, Arterial Blood Oxygen Saturation 91.8L, Arterial Blood Base Excess -1.5, Behzad Test Positive Height (Feet): 5 Height (Inches): 5.00 Weight (Pounds): 140 General Appearance: lethargic EENT: normal ENT inspection Neck: supple Cardiovascular: tachycardia Respiratory/Chest: decreased breath sounds Abdomen: soft, hypoactive bowel sounds Extremities: non-tender Norm Thurston MD Jan 28, 2020 09:17
[2020-01-28] MEDS: Pantoprazole Inj IV SCH ×2 (09:39→20:46)
[2020-01-28] MEDS: Sodium Polystyrene Sulfonate 15gm Powder ORAL SCH (09:39)
--- NOTE | 2020-01-28 09:40 | Diagnostic Imaging Report ---
EXAM: XR Chest, 1 View CLINICAL HISTORY: DYSPNEA TECHNIQUE: Frontal view of the chest. COMPARISON: January 24, 2020. FINDINGS: Again noted is right-sided central venous catheter with distal tip looped above the expected region of the azygos vein. Stable tracheostomy tube. Stable cardiomediastinal silhouette. Low lung volumes. Mild interval improvement in previously noted pleural parenchymal abnormalities in the left lung. Stable right basilar atelectasis/infiltrate. IMPRESSION: Right-sided central venous catheter with distal tip looped above the expected region of the azygos vein. Recommend repositioning. Mild interval improvement in previously noted pleural parenchymal abnormalities in the left lung. Stable right basilar atelectasis/infiltrate. <MYCVCSECTION> Communications: 01/28/20 09:42 Call Nurse ICU plumbing warehouse helperTEDDY Yung on 01/27 09:42 (-07:00)
--- NOTE | 2020-01-28 09:45 | Nephrology Progress Note ---
Assessment/Plan Problem List: (1) FRIDA (acute kidney injury) (2) Sepsis (3) Ventilator dependent (4) Bilateral pleural effusion (5) Decubitus skin ulcer (6) Electrolyte imbalance Assessment: Hyperkalemia, hypernatremia Assessment FRIAD Dehydration, hypernatremia, hyperkalemia Anemia Chronic vent dependent, with superimposed acute component Bilateral pleural effusion Sepsis, leukocytosis, UTI Functional quadriplegia History of coronary artery disease and SC Multiple decubiti Chronic malnutrition Plan January 27: Continue to do poorly. 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 Continue present management. Discussed with RN. Magnesium supplement given. January 26: Serum potassium within normal limit. Continues to be on Kayexalate. Digoxin level down to 1.7. Continue per consultants. Continue to do poorly. Patient DNR. January 25: Potassium remains elevated. Kayexalate given. Digoxin level higher to 2.1 . IV digoxin discontinued yesterday. Doing poorly. Continue present management. January 24: Potassium still high. Kayexalate every 6 hours ordered. Patient continues to do poorly. Digoxin level is 2, will hold IV digoxin for now. January 23: Potassium remains high. Kayexalate given. Bicitra started. Midodrin started. Patient DNR now. Continue per consultants. Overall prognosis poor. Hemodynamically unstable for dialysis treatment. Per order. Patient is doing poorly. No urine output. Labs reviewed. Discussed with RN and Miles. Kayexalate given for hyperkalemia. IV D5 and a half normal saline Pressors Antibiotics Skin care Continue per consultants Monitor renal parameters Avoid nephrotoxic's Patient now DNR. No candidate for dialysis treatment due to multiple medical issues, sepsis, poor prognosis. Subjective ROS Limited/Unobtainable: Yes Objective Objective Last 24 Hour Vital Signs Date Time Temp Pulse Resp B/P (MAP) Pulse Ox O2 Delivery O2 Flow Rate FiO2 01/28/20 08:00 128 27 116/101 (106) 94 01/28/20 07:09 115 19 30 01/28/20 07:00 105/54 01/28/20 07:00 117 27 111/65 (80) 96 01/28/20 06:30 118 26 01/28/20 06:00 95/71 01/28/20 06:00 122 24 104/60 (75) 97 01/28/20 05:00 122 26 113/59 (77) 96 01/28/20 05:00 104/60 01/28/20 04:00 30 01/28/20 04:00 113/59 01/28/20 04:00 99.6 128 26 111/61 (78) 95 01/28/20 04:00 Mechanical Ventilator 01/28/20 03:30 132 24 30 01/28/20 03:01 123 01/28/20 03:00 124 23 122/69 (86) 99 01/28/20 03:00 111/61 01/28/20 02:00 106/64 01/28/20 02:00 127 24 106/64 (78) 99 01/28/20 01:05 98/59 01/28/20 01:04 94/59 01/28/20 01:04 123 94/59 01/28/20 01:00 108/50 01/28/20 01:00 113 26 108/59 (75) 97 01/28/20 00:00 99.8 123 25 114/99 (104) 99 01/28/20 00:00 40 01/28/20 00:00 114/99 01/28/20 00:00 Mechanical Ventilator 01/27/20 23:30 119 25 40 01/27/20 23:02 119 01/27/20 23:00 122 23 114/55 (74) 99 01/27/20 23:00 114/55 01/27/20 22:00 96/53 01/27/20 22:00 121 23 104/57 (73) 99 01/27/20 21:00 119 25 100/56 (71) 99 01/27/20 21:00 100/56 01/27/20 20:00 98.2 123 24 113/56 (75) 99 01/27/20 20:00 Mechanical Ventilator 01/27/20 20:00 40 01/27/20 20:00 113/56 01/27/20 19:45 121 01/27/20 19:30 120 24 113/57 (75) 98 01/27/20 19:30 137 26 40 01/27/20 19:00 120 24 102/66 (78) 98 01/27/20 18:30 121 27 108/54 (72) 97 01/27/20 18:00 119 25 103/64 (77) 99 01/27/20 17:30 118 28 139/82 (101) 98 01/27/20 17:13 111/51 01/27/20 17:13 110 111/51 01/27/20 17:00 119 25 111/51 (71) 98 01/27/20 16:30 119 25 111/59 (76) 97 01/27/20 16:00 116 01/27/20 16:00 40 01/27/20 16:00 99.9 118 28 80/66 (71) 97 01/27/20 16:00 Mechanical Ventilator 01/27/20 15:30 118 27 116/52 (73) 99 01/27/20 15:00 118 27 102/78 (86) 96 01/27/20 14:39 124 30 40 01/27/20 14:30 119 26 122/63 (82) 98 01/27/20 14:00 119 26 107/54 (71) 96 01/27/20 13:30 118 27 106/52 (70) 95 01/27/20 13:00 119 24 115/53 (73) 95 01/27/20 12:30 116 25 121/57 (78) 97 01/27/20 12:00 100.0 116 24 137/55 (82) 25 01/27/20 12:00 115 01/27/20 12:00 Mechanical Ventilator 01/27/20 12:00 40 01/27/20 11:30 112 24 108/57 (74) 96 01/27/20 11:21 115 25 40 01/27/20 11:21 115 25 97 Mechanical Ventilator 40 01/27/20 11:00 113 22 106/52 (70) 96 01/27/20 10:30 118 25 115/50 (71) 95 01/27/20 10:26 113 77/41 01/27/20 10:00 114/52 01/27/20 10:00 138 26 95/53 (67) 95 Intake and Output 01/27/20 01/28/20 19:00 07:00 Intake Total 2271.57504 ml 2353.44 ml Output Total 35 ml 40 ml Balance 2236.49459 ml 2313.44 ml Intake Free Water 90 ml IV Total 2221.28449 ml 2263.44 ml Other 50 ml Output Urine Total 35 ml 40 ml # Bowel Movements 1 Laboratory Tests 01/28/20 04:10: White Blood Count 18.7H, Red Blood Count 2.63L, Hemoglobin 8.0L, Hematocrit 25.3L, Mean Corpuscular Volume 96, Mean Corpuscular Hemoglobin 30.3, Mean Corpuscular Hemoglobin Concent 31.5L, Red Cell Distribution Width 16.1H, Platelet Count 109L, Mean Platelet Volume 9.4, Neutrophils (%) (Auto) , Lymphocytes (%) (Auto) , Monocytes (%) (Auto) , Eosinophils (%) (Auto) , Basophils (%) (Auto) , Differential Total Cells Counted 100, Neutrophils % ( Manual) 86H, Lymphocytes % (Manual) 10L, Monocytes % (Manual) 4, Eosinophils % ( Manual) 0, Basophils % (Manual) 0, Band Neutrophils 0, Platelet Estimate DecreasedL, Platelet Morphology , Clumped Platelets 1+, Hypochromasia 1+, Anisocytosis 1+, Sodium Level 139, Potassium Level 4.3, Chloride Level 102, Carbon Dioxide Level 23, Anion Gap 14, Blood Urea Nitrogen 171H, Creatinine 5.1H , Estimat Glomerular Filtration Rate 10.9, Glucose Level 148H, Calcium Level 6.7L, Phosphorus Level 8.1H, Magnesium Level 1.7L, Total Bilirubin 0.4, Aspartate Amino Transf (AST/SGOT) 63H, Alanine Aminotransferase (ALT/SGPT) 15, Alkaline Phosphatase 84, Total Protein 5.5L, Albumin 0.7L, Globulin 4.8, Albumin /Globulin Ratio 0.1L 01/28/20 07:49: Arterial Blood pH 7.449, Arterial Blood Partial Pressure CO2 32.8L, Arterial Blood Partial Pressure O2 61.1L, Arterial Blood HCO3 22.2, Arterial Blood Oxygen Saturation 91.8L, Arterial Blood Base Excess -1.5, Behzad Test Positive Height (Feet): 5 Height (Inches): 5.00 Weight (Pounds): 140 General Appearance: mild distress EENT: other Cardiovascular: tachycardia Respiratory/Chest: decreased breath sounds Abdomen: distended Ronnie Guevara MD Jan 28, 2020 09:45
--- NOTE | 2020-01-28 11:18 | Surgery Progress Note ---
Surgery Progress Note Subjective Additional Comments ill appearing leukocytosis still with drainage around trach prognosis guarded Objective Last 24 Hour Vital Signs Date Time Temp Pulse Resp B/P (MAP) Pulse Ox O2 Delivery O2 Flow Rate FiO2 01/28/20 10:43 125 25 30 01/28/20 10:10 128 92/57 01/28/20 08:00 128 27 116/101 (106) 94 01/28/20 08:00 Mechanical Ventilator 01/28/20 08:00 30 01/28/20 07:09 115 19 30 01/28/20 07:00 105/54 01/28/20 07:00 117 27 111/65 (80) 96 01/28/20 06:30 118 26 01/28/20 06:00 95/71 01/28/20 06:00 122 24 104/60 (75) 97 01/28/20 05:00 122 26 113/59 (77) 96 01/28/20 05:00 104/60 01/28/20 04:00 30 01/28/20 04:00 113/59 01/28/20 04:00 99.6 128 26 111/61 (78) 95 01/28/20 04:00 Mechanical Ventilator 01/28/20 03:30 132 24 30 01/28/20 03:01 123 01/28/20 03:00 124 23 122/69 (86) 99 01/28/20 03:00 111/61 01/28/20 02:00 106/64 01/28/20 02:00 127 24 106/64 (78) 99 01/28/20 01:05 98/59 01/28/20 01:04 94/59 01/28/20 01:04 123 94/59 01/28/20 01:00 108/50 01/28/20 01:00 113 26 108/59 (75) 97 01/28/20 00:00 99.8 123 25 114/99 (104) 99 01/28/20 00:00 40 01/28/20 00:00 114/99 01/28/20 00:00 Mechanical Ventilator 01/27/20 23:30 119 25 40 01/27/20 23:02 119 01/27/20 23:00 122 23 114/55 (74) 99 01/27/20 23:00 114/55 01/27/20 22:00 96/53 01/27/20 22:00 121 23 104/57 (73) 99 01/27/20 21:00 119 25 100/56 (71) 99 01/27/20 21:00 100/56 01/27/20 20:00 98.2 123 24 113/56 (75) 99 01/27/20 20:00 Mechanical Ventilator 01/27/20 20:00 40 20 20:00 113/56 01/27/20 19:45 121 01/27/20 19:30 120 24 113/57 (75) 98 01/27/20 19:30 137 26 40 01/27/20 19:00 120 24 102/66 (78) 98 01/27/20 18:30 121 27 108/54 (72) 97 01/27/20 18:00 119 25 103/64 (77) 99 01/27/20 17:30 118 28 139/82 (101) 98 01/27/20 17:13 111/51 01/27/20 17:13 110 111/51 01/27/20 17:00 119 25 111/51 (71) 98 01/27/20 16:30 119 25 111/59 (76) 97 01/27/20 16:00 116 01/27/20 16:00 40 01/27/20 16:00 99.9 118 28 80/66 (71) 97 01/27/20 16:00 Mechanical Ventilator 01/27/20 15:30 118 27 116/52 (73) 99 01/27/20 15:00 118 27 102/78 (86) 96 01/27/20 14:39 124 30 40 01/27/20 14:30 119 26 122/63 (82) 98 01/27/20 14:00 119 26 107/54 (71) 96 01/27/20 13:30 118 27 106/52 (70) 95 01/27/20 13:00 119 24 115/53 (73) 95 01/27/20 12:30 116 25 121/57 (78) 97 01/27/20 12:00 100.0 116 24 137/55 (82) 25 01/27/20 12:00 115 01/27/20 12:00 Mechanical Ventilator 01/27/20 12:00 40 01/27/20 11:30 112 24 108/57 (74) 96 01/27/20 11:21 115 25 40 01/27/20 11:21 115 25 97 Mechanical Ventilator 40 I&O Intake and Output 01/27/20 01/28/20 19:00 07:00 Intake Total 2271.83368 ml 2353.44 ml Output Total 35 ml 40 ml Balance 2236.39341 ml 2313.44 ml Intake Free Water 90 ml IV Total 2221.52427 ml 2263.44 ml Other 50 ml Output Urine Total 35 ml 40 ml # Bowel Movements 1 Dressing: saturated Wound: other Cardiovascular: RSR Respiratory: decreased breath sounds Abdomen: soft, non-tender, present bowel sounds Extremities: no tenderness, no cyanosis, other Laboratory Tests Test 01/28/20 04:10 01/28/20 07:49 White Blood Count 18.7 K/UL (4.8-10.8) H Red Blood Count 2.63 M/UL (4.70-6.10) L Hemoglobin 8.0 G/DL (14.2-18.0) L Hematocrit 25.3 % (42.0-52.0) L Mean Corpuscular Volume 96 FL (80-99) Mean Corpuscular Hemoglobin 30.3 PG (27.0-31.0) Mean Corpuscular Hemoglobin Concent 31.5 G/DL (32.0-36.0) L Red Cell Distribution Width 16.1 % (11.6-14.8) H Platelet Count 109 K/UL (150-450) L Mean Platelet Volume 9.4 FL (6.5-10.1) Neutrophils (%) (Auto) % (45.0-75.0) Lymphocytes (%) (Auto) % (20.0-45.0) Monocytes (%) (Auto) % (1.0-10.0) Eosinophils (%) (Auto) % (0.0-3.0) Basophils (%) (Auto) % (0.0-2.0) Differential Total Cells Counted 100 Neutrophils % (Manual) 86 % (45-75) H Lymphocytes % (Manual) 10 % (20-45) L Monocytes % (Manual) 4 % (1-10) Eosinophils % (Manual) 0 % (0-3) Basophils % (Manual) 0 % (0-2) Band Neutrophils 0 % (0-8) Platelet Estimate Decreased L Platelet Morphology Clumped Platelets 1+ Hypochromasia 1+ Anisocytosis 1+ Sodium Level 139 MMOL/L (136-145) Potassium Level 4.3 MMOL/L (3.5-5.1) Chloride Level 102 MMOL/L (98-107) Carbon Dioxide Level 23 MMOL/L (21-32) Anion Gap 14 mmol/L (5-15) Blood Urea Nitrogen 171 mg/dL (7-18) H Creatinine 5.1 MG/DL (0.55-1.30) H Estimat Glomerular Filtration Rate 10.9 mL/min (>60) Glucose Level 148 MG/DL (74-106) H Calcium Level 6.7 MG/DL (8.5-10.1) L Phosphorus Level 8.1 MG/DL (2.5-4.9) H Magnesium Level 1.7 MG/DL (1.8-2.4) L Total Bilirubin 0.4 MG/DL (0.2-1.0) Aspartate Amino Transf (AST/SGOT) 63 U/L (15-37) H Alanine Aminotransferase (ALT/SGPT) 15 U/L (12-78) Alkaline Phosphatase 84 U/L (46-116) Total Protein 5.5 G/DL (6.4-8.2) L Albumin 0.7 G/DL (3.4-5.0) L Globulin 4.8 g/dL Albumin/Globulin Ratio 0.1 (1.0-2.7) L Arterial Blood pH 7.449 (7.350-7.450) Arterial Blood Partial Pressure CO2 32.8 mmHg (35.0-45.0) L Arterial Blood Partial Pressure O2 61.1 mmHg (75.0-100.0) L Arterial Blood HCO3 22.2 mmol/L (22.0-26.0) Arterial Blood Oxygen Saturation 91.8 % (95-100) L Arterial Blood Base Excess -1.5 (-2-2) Behzad Test Positive Plan Problems: (1) Dehydration (2) Urinary tract infection (3) Ventilator dependent (4) Bilateral pleural effusion (5) Decubitus skin ulcer Assessment & Plan: Pt presented on admission with in grossly unkempt state, with Contractures and multiple Pressure injuries.Skin turgor is poor. Color is dusky. Generalized dry,scaly skin. Gastrostomy stoma is eroded and oozing moderate amt malodorous,Black,mud consistency exudate. Clusters of Unstageabloe Pressure injury Thoracic Spine. Base of wound has multiple small islands of slough with soft erythematous bridges giving wound appearance of multiple wounds. Area measuring (L)4cm x (W)3.6cm. In close proximity, to L of thoracic spine is a Partial thickness Pressure injury(L)5cm x (W)3.5cm. Base of wound is cade with macerated borders.Small amt sanguineous exudate noted. Resolving Full thickness 4 Pressure injury R Trochanter(L)0.7cm x (W)1.2cm, slight tunneled area at 11o'clock by 0.3cm. Surrounding pink epithelial bordered by hyperpigmentation. NO odor or exudate noted. Partial thickness shearing noted over Previously compromised skin (L)9cm x (W) 10.5cm. Base of wound is erythematous with multiple Scattered satellite lesions that are oozing sanguineous exudate. Unstageable Pressure injury distally, medial R Tibia(L)1.3cm x (W)1.1 cm . Base of wound is 100% yellow slough with marginal erythematous borders. No odor or exudate noted. Xerosis skin periwound. Pressure injury R Hallux. Base of wound is 40% dry eschar ,60% pink epithelial. No exudate noted. No erythema or fluctuance periwound. R Heel is boggy with non-blanchable erythema. Wound Plantar R foot(L)0.6cm x (W)0.8cm. 100% slough at base of wound . Marginal erythema along edges. Periwound is fluctuant and erythematous. At web space between R 1st and 2nd metatarsals is a Partial Thickness wound that is cade and oozing small amt sanguineous exudate. At Plantar aspect of R 3rd metatarsal noted to be oozing small amt Sanguineous exudate. Assessment of wound is not fully appreciated secondary to clubbing of metatarsals. Swabbed with Betadine and small gauze pressure drsg applied. Resolving Pressure Injury L Heel(L)6.5cm x (W)5cm. Base of wound is 90% pink epithelial, 10% dry eschar. NO odor or exudate noted . Scattered small dry,black scabs noted to R and L dorsal aspects feet ,including dorsal aspects of metatarsals both feet. Cleanse wounds Thoracic Spine with Saline. Apply TheraHoney. Apply Cavilon Skin Barrier Periwound. Cover with Optifoam drsg.Change every 3 days and prn. Apply Moisture Barrier Paste to Buttocks. Cover with Optifoam drsg. Change every 3 days and prn. Apply Betadine to wounds both feet. Cover with Abd pads and wrap each foot with Kerlix drsg. Wash GT site with Soap and Water and apply Loose Gauze drsg Daily and prn. Cleanse wound R trochanter with saline. Apply Therahoney,Apply Cavilon Periwound. Cover with Optifoam drsg. Change every 3 days and prn. Cleanse wounds L hip and L trochanter with Saline. Apply Therahoney. Apply Cavilon periwound .Cover with Optifoam drsg every 3 days and prn. Cleanse wounds L scapula with Saline. Apply TheraHoney. Apply Cavilon periwound.Cover with Optifoam drsg every 3 days and prn. Apply Triad paste to sacrum ,groin and scrotum with each Incontinence care. Cleanse wounds R and L foot with Saline. Apply TheraHoney. Cover wounds with Abd pads and wrap both feet with Kerlix gauze every 3 days and prn. Air Fluidized mattress. Reposition at least every 2hours or as tolerated. Place pillow between knees. Off-load heels with pillow. nutritional; optimization (6) funtional quadriplegia (7) Sepsis Assessment & Plan: labs reviewed on abx cxr noted unchanged wean as tolerated tf chris lira will monitor worsening drainage around trach possible fistula vs abscess CT pending (8) Chronic respiratory failure (9) Pneumonia (10) Acute on chronic respiratory failure Assessment & Plan: Bilateral interstitial opacities, left basilar pleural fluid and/or consolidation, left lung volume loss appear unchanged. Tracheostomy remains. 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 2) Swallowing difficulty r/t respiratory failure as evidenced by pt is trach/ vent dep and GT dependent. CURRENT TF:NPO ENTERAL NUTRITION RECOMMENDATIONS: Nepro @ 45ml/hr x 24 hrs to provide 1080ml, 1944kcal, 87g prot, 785ml free water FEED W/ HEMODYNAMIC STABILITY -> Rec Nepro at this time due to ARF, K consistently elev, now 6.2* -> Initiate Nepro @ 15ml/hr x 6hrs, advance 10ml q 4-6 hrs as tolerated to goal rate -> HOB over 30 degrees/ water flush per MD Without hemodynamic stability, rec trophic feeding of Nepro @ 5ml/hr x 24hrs ADDITIONAL RECOMMENDATIONS: * PER SNF: HT=72 inches, XW=[id number] (01/08) vs EMR HT= 65" inches and RP=[id number] -> RECALIBRATE BEDSCALE * Monitor renal fxn and lytes, need for continued rec for Nepro * Monitor HD stability: NE @ 6mcg * Wound healing: add vit C 500mg BID, Edmond BID w/ TF order * Consider accuchecks for close BG monitoring for hypoglycemia -> cont D5 while pt NPO (13) Protein-calorie malnutrition, severe (14) At high risk for aspiration (15) ATN (acute tubular necrosis) (16) Severe anemia (17) Encephalopathy acute Stanislav Avelar Jan 28, 2020 11:18
--- NOTE | 2020-01-28 12:17 | Pulmonolgy Critical Care Note ---
Critical Care - Asmt/Plan Problems: (1) Encephalopathy acute (2) Multiple organ failure (3) Acute on chronic respiratory failure (4) Sepsis (5) FRIDA (acute kidney injury) (6) Thrombocytopenia (7) Dehydration (8) Feeding by G-tube (9) Protein-calorie malnutrition, severe (10) Chronic respiratory failure (11) funtional quadriplegia (12) Ventilator dependent Respiratory: monitor respiratory rate, adjust FIO2 Cardiac: continue to monitor HR/BP Renal: F/U I&O, keep IV fluid, check electrolytes Infectious Disease: continue antibiotics Gastrointestinal: hold feedings Endocrine: monitor blood sugar Hematologic: monitor H/H, transfuse if hgb<8.5 Neurologic: keep patient comfortable Affect: PRN ativan Prophylaxis: Heparin Time Spent (Minutes): 40 Notes Reviewed: flower cheniller, cardio Discussed with: nurses, consultants, case management [facility] - Objective Last 24 Hour Vital Signs Date Time Temp Pulse Resp B/P (MAP) Pulse Ox O2 Delivery O2 Flow Rate FiO2 01/28/20 12:00 Mechanical Ventilator 01/28/20 12:00 30 01/28/20 12:00 99.7 128 27 97/59 (72) 96 01/28/20 11:00 100.5 121 26 114/71 (85) 97 01/28/20 10:43 125 25 30 01/28/20 10:10 128 92/57 01/28/20 10:00 119 22 92/57 (69) 96 01/28/20 09:00 98.1 125 26 94/58 (70) 94 01/28/20 08:00 128 27 116/101 (106) 94 01/28/20 08:00 Mechanical Ventilator 01/28/20 08:00 30 01/28/20 07:09 115 19 30 01/28/20 07:00 105/54 01/28/20 07:00 117 27 111/65 (80) 96 01/28/20 06:30 118 26 01/28/20 06:00 95/71 01/28/20 06:00 122 24 104/60 (75) 97 01/28/20 05:00 122 26 113/59 (77) 96 01/28/20 05:00 104/60 01/28/20 04:00 30 01/28/20 04:00 113/59 01/28/20 04:00 99.6 128 26 111/61 (78) 95 01/28/20 04:00 Mechanical Ventilator 01/28/20 03:30 132 24 30 01/28/20 03:01 123 01/28/20 03:00 124 23 122/69 (86) 99 01/28/20 03:00 111/61 01/28/20 02:00 106/64 01/28/20 02:00 127 24 106/64 (78) 99 01/28/20 01:05 98/59 01/28/20 01:04 94/59 01/28/20 01:04 123 94/59 01/28/20 01:00 108/50 01/28/20 01:00 113 26 108/59 (75) 97 01/28/20 00:00 99.8 123 25 114/99 (104) 99 01/28/20 00:00 40 01/28/20 00:00 114/99 01/28/20 00:00 Mechanical Ventilator 01/27/20 23:30 119 25 40 01/27/20 23:02 119 01/27/20 23:00 122 23 114/55 (74) 99 01/27/20 23:00 114/55 01/27/20 22:00 96/53 01/27/20 22:00 121 23 104/57 (73) 99 01/27/20 21:00 119 25 100/56 (71) 99 01/27/20 21:00 100/56 01/27/20 20:00 98.2 123 24 113/56 (75) 99 01/27/20 20:00 Mechanical Ventilator 01/27/20 20:00 40 01/27/20 20:00 113/56 01/27/20 19:45 121 01/27/20 19:30 120 24 113/57 (75) 98 01/27/20 19:30 137 26 40 01/27/20 19:00 120 24 102/66 (78) 98 01/27/20 18:30 121 27 108/54 (72) 97 01/27/20 18:00 119 25 103/64 (77) 99 01/27/20 17:30 118 28 139/82 (101) 98 01/27/20 17:13 111/51 01/27/20 17:13 110 111/51 01/27/20 17:00 119 25 111/51 (71) 98 01/27/20 16:30 119 25 111/59 (76) 97 01/27/20 16:00 116 01/27/20 16:00 40 01/27/20 16:00 99.9 118 28 80/66 (71) 97 01/27/20 16:00 Mechanical Ventilator 01/27/20 15:30 118 27 116/52 (73) 99 01/27/20 15:00 118 27 102/78 (86) 96 01/27/20 14:39 124 30 40 01/27/20 14:30 119 26 122/63 (82) 98 01/27/20 14:00 119 26 107/54 (71) 96 01/27/20 13:30 118 27 106/52 (70) 95 01/27/20 13:00 119 24 115/53 (73) 95 01/27/20 12:30 116 25 121/57 (78) 97 Status: awake Condition: critical HEENT: atraumatic, normocephalic Lungs: clear, chest wall tender Heart: HR/BP stable Abdomen: soft, non-tender Extremities: no C/C/E Micro: Microbiology Date/Time Source Procedure Growth Status 01/26/20 16:30 Blood Blood Culture - Preliminary NO GROWTH AFTER 24 HOURS Resulted 01/26/20 16:20 Blood Blood Culture - Preliminary NO GROWTH AFTER 24 HOURS Resulted Critical Care - Subjective ROS Limited/Unobtainable: Yes Condition: critical EKG Rhythm: Sinus Rhythm FI02: 30 Vent Support Breath Rate: 16 Vent Support Mode: AC Vent Tidal Volume: 500 Sputum Amount: Small PEEP: 5.0 PIP: 45 I&O: Intake and Output 01/27/20 01/28/20 19:00 07:00 Intake Total 2271.70329 ml 2353.44 ml Output Total 35 ml 40 ml Balance 2236.46732 ml 2313.44 ml Intake Free Water 90 ml IV Total 2221.34378 ml 2263.44 ml Other 50 ml Output Urine Total 35 ml 40 ml # Bowel Movements 1 CXR: no change Labs: Laboratory Tests Test 01/28/20 04:10 01/28/20 07:49 White Blood Count 18.7 K/UL (4.8-10.8) H Red Blood Count 2.63 M/UL (4.70-6.10) L Hemoglobin 8.0 G/DL (14.2-18.0) L Hematocrit 25.3 % (42.0-52.0) L Mean Corpuscular Volume 96 FL (80-99) Mean Corpuscular Hemoglobin 30.3 PG (27.0-31.0) Mean Corpuscular Hemoglobin Concent 31.5 G/DL (32.0-36.0) L Red Cell Distribution Width 16.1 % (11.6-14.8) H Platelet Count 109 K/UL (150-450) L Mean Platelet Volume 9.4 FL (6.5-10.1) Neutrophils (%) (Auto) % (45.0-75.0) Lymphocytes (%) (Auto) % (20.0-45.0) Monocytes (%) (Auto) % (1.0-10.0) Eosinophils (%) (Auto) % (0.0-3.0) Basophils (%) (Auto) % (0.0-2.0) Differential Total Cells Counted 100 Neutrophils % (Manual) 86 % (45-75) H Lymphocytes % (Manual) 10 % (20-45) L Monocytes % (Manual) 4 % (1-10) Eosinophils % (Manual) 0 % (0-3) Basophils % (Manual) 0 % (0-2) Band Neutrophils 0 % (0-8) Platelet Estimate Decreased L Platelet Morphology Clumped Platelets 1+ Hypochromasia 1+ Anisocytosis 1+ Sodium Level 139 MMOL/L (136-145) Potassium Level 4.3 MMOL/L (3.5-5.1) Chloride Level 102 MMOL/L (98-107) Carbon Dioxide Level 23 MMOL/L (21-32) Anion Gap 14 mmol/L (5-15) Blood Urea Nitrogen 171 mg/dL (7-18) H Creatinine 5.1 MG/DL (0.55-1.30) H Estimat Glomerular Filtration Rate 10.9 mL/min (>60) Glucose Level 148 MG/DL (74-106) H Calcium Level 6.7 MG/DL (8.5-10.1) L Phosphorus Level 8.1 MG/DL (2.5-4.9) H Magnesium Level 1.7 MG/DL (1.8-2.4) L Total Bilirubin 0.4 MG/DL (0.2-1.0) Aspartate Amino Transf (AST/SGOT) 63 U/L (15-37) H Alanine Aminotransferase (ALT/SGPT) 15 U/L (12-78) Alkaline Phosphatase 84 U/L (46-116) Total Protein 5.5 G/DL (6.4-8.2) L Albumin 0.7 G/DL (3.4-5.0) L Globulin 4.8 g/dL Albumin/Globulin Ratio 0.1 (1.0-2.7) L Arterial Blood pH 7.449 (7.350-7.450) Arterial Blood Partial Pressure CO2 32.8 mmHg (35.0-45.0) L Arterial Blood Partial Pressure O2 61.1 mmHg (75.0-100.0) L Arterial Blood HCO3 22.2 mmol/L (22.0-26.0) Arterial Blood Oxygen Saturation 91.8 % (95-100) L Arterial Blood Base Excess -1.5 (-2-2) Behzad Test Positive Dennis Woodall MD Jan 28, 2020 12:16
--- NOTE | 2020-01-28 14:48 | Internal Med Progress Note ---
Subjective Date of Service: Jan 28, 2020 Physician Name Bunny Morocho Attending Physician Dains Wolfe MD Current Medications Medications (Trade) Dose Ordered Sig/Margarette Route PRN Reason Start Time Stop Time Status Last Admin Dose Admin Acetaminophen (Tylenol) 650 mg Q4H PRN ORAL fever 01/22/20 08:15 02/21/20 08:14 01/28/20 12:10 Allopurinol (allopurinoL) 300 mg DAILY GT 01/27/20 09:00 02/26/20 08:59 01/28/20 09:38 Chlorhexidine Gluconate (Flaca-Hex 2%) 1 applic DAILY@2000 TOPIC 01/26/20 20:00 04/25/20 19:59 01/27/20 20:40 Daptomycin 400 mg/ Sodium Chloride 55 ml @ 100 mls/hr Q48H IV 01/25/20 12:00 02/01/20 11:59 01/27/20 12:20 Heparin Sodium (Porcine) (Heparin 5000 units/ml) 5,000 units EVERY 12 HOURS SUBQ 01/22/20 21:00 03/07/20 20:59 01/24/20 20:56 Lorazepam (Ativan 2mg/ml 1ml) 2 mg Q2H PRN IV For Anxiety 01/22/20 08:15 01/29/20 08:14 Magnesium Sulfate 100 ml @ 100 mls/hr ONCE ONCE IVPB 01/28/20 14:30 01/28/20 15:29 Meropenem 500 mg/ Sodium Chloride 55 ml @ 110 mls/hr Q12H IVPB 01/22/20 14:00 01/31/20 23:59 01/28/20 13:28 Midodrine (Pro-Amatine) 10 mg Q8HR GT 01/24/20 14:00 04/23/20 13:59 01/28/20 13:28 Morphine Sulfate (Morphine Sulfate) 4 mg Q4H PRN IVP Severe Pain (Pain Scale 7-10) 01/22/20 08:15 01/29/20 08:14 Norepinephrine Bitartrate 16 mg/ Dextrose 500 ml @ 0 mls/hr Q24H IV 01/27/20 09:00 02/26/20 08:59 01/28/20 13:55 Ondansetron HCl (Zofran) 4 mg Q6H PRN IVP Nausea & Vomiting 01/22/20 08:15 02/21/20 08:14 Pantoprazole (Protonix) 40 mg Q12HR IV 01/22/20 09:30 02/21/20 09:29 01/28/20 09:39 Phenylephrine HCl 50 mg/Dextrose 250 ml @ 0 mls/hr Q24H IV 01/27/20 07:03 02/26/20 07:02 01/28/20 10:10 Polyethylene Glycol (Miralax) 17 gm DAILYPRN PRN ORAL Constipation 01/22/20 08:15 02/21/20 08:14 Sodium Bicarbonate 100 ml/Dextrose/ Sodium Chloride 1,100 ml @ 100 mls/hr Q11H IV 01/25/20 09:00 02/24/20 08:59 01/28/20 14:34 Sodium Polystyrene Sulfonate (Kayexalate) 30 gm BID ORAL 01/26/20 18:00 01/28/20 17:59 01/28/20 09:39 Sodium Citrate (Bicitra) 30 ml EVERY 6 HOURS GT 01/24/20 18:00 02/23/20 17:59 01/28/20 12:37 Allergies: Coded Allergies: NSAIDS (NON-STEROIDAL ANTI-INFLAMMA (Unverified Allergy, Unknown, 11/27/18) PIPERACILLIN (Unverified Allergy, Unknown, 01/25/19) tolerates carbapenem TAZOBACTAM (Unverified Allergy, Unknown, 11/27/18) Uncoded Allergies: NSAID (Allergy, Unknown, 09/14/18) ROS Limited/Unobtainable: Yes Subjective 84 YO M admitted with respiratory failure. Now pneumonia and hypotension. intubated and sedated. Cover for Int Med-DR Wolfe. ICU. Continues on pressors Objective Last Vital Signs Date Time Temp Pulse Resp B/P (MAP) Pulse Ox O2 Delivery O2 Flow Rate FiO2 01/28/20 13:55 107/51 01/28/20 13:00 126 25 95 01/28/20 12:40 99.7 01/28/20 12:00 Mechanical Ventilator 01/28/20 12:00 30 01/25/20 07:00 30.0 Laboratory Tests Test 01/28/20 04:10 01/28/20 07:49 White Blood Count 18.7 K/UL (4.8-10.8) H Red Blood Count 2.63 M/UL (4.70-6.10) L Hemoglobin 8.0 G/DL (14.2-18.0) L Hematocrit 25.3 % (42.0-52.0) L Mean Corpuscular Volume 96 FL (80-99) Mean Corpuscular Hemoglobin 30.3 PG (27.0-31.0) Mean Corpuscular Hemoglobin Concent 31.5 G/DL (32.0-36.0) L Red Cell Distribution Width 16.1 % (11.6-14.8) H Platelet Count 109 K/UL (150-450) L Mean Platelet Volume 9.4 FL (6.5-10.1) Neutrophils (%) (Auto) % (45.0-75.0) Lymphocytes (%) (Auto) % (20.0-45.0) Monocytes (%) (Auto) % (1.0-10.0) Eosinophils (%) (Auto) % (0.0-3.0) Basophils (%) (Auto) % (0.0-2.0) Differential Total Cells Counted 100 Neutrophils % (Manual) 86 % (45-75) H Lymphocytes % (Manual) 10 % (20-45) L Monocytes % (Manual) 4 % (1-10) Eosinophils % (Manual) 0 % (0-3) Basophils % (Manual) 0 % (0-2) Band Neutrophils 0 % (0-8) Platelet Estimate Decreased L Platelet Morphology Clumped Platelets 1+ Hypochromasia 1+ Anisocytosis 1+ Sodium Level 139 MMOL/L (136-145) Potassium Level 4.3 MMOL/L (3.5-5.1) Chloride Level 102 MMOL/L (98-107) Carbon Dioxide Level 23 MMOL/L (21-32) Anion Gap 14 mmol/L (5-15) Blood Urea Nitrogen 171 mg/dL (7-18) H Creatinine 5.1 MG/DL (0.55-1.30) H Estimat Glomerular Filtration Rate 10.9 mL/min (>60) Glucose Level 148 MG/DL (74-106) H Calcium Level 6.7 MG/DL (8.5-10.1) L Phosphorus Level 8.1 MG/DL (2.5-4.9) H Magnesium Level 1.7 MG/DL (1.8-2.4) L Total Bilirubin 0.4 MG/DL (0.2-1.0) Aspartate Amino Transf (AST/SGOT) 63 U/L (15-37) H Alanine Aminotransferase (ALT/SGPT) 15 U/L (12-78) Alkaline Phosphatase 84 U/L (46-116) Total Protein 5.5 G/DL (6.4-8.2) L Albumin 0.7 G/DL (3.4-5.0) L Globulin 4.8 g/dL Albumin/Globulin Ratio 0.1 (1.0-2.7) L Arterial Blood pH 7.449 (7.350-7.450) Arterial Blood Partial Pressure CO2 32.8 mmHg (35.0-45.0) L Arterial Blood Partial Pressure O2 61.1 mmHg (75.0-100.0) L Arterial Blood HCO3 22.2 mmol/L (22.0-26.0) Arterial Blood Oxygen Saturation 91.8 % (95-100) L Arterial Blood Base Excess -1.5 (-2-2) Behzad Test Positive Microbiology Date/Time Source Procedure Growth Status 01/26/20 16:30 Blood Blood Culture - Preliminary NO GROWTH AFTER 24 HOURS Resulted 01/26/20 16:20 Blood Blood Culture - Preliminary NO GROWTH AFTER 24 HOURS Resulted Intake and Output 01/27/20 01/28/20 19:00 07:00 Intake Total 2271.95002 ml 2353.44 ml Output Total 35 ml 40 ml Balance 2236.35409 ml 2313.44 ml Intake Free Water 90 ml IV Total 2221.96803 ml 2263.44 ml Other 50 ml Output Urine Total 35 ml 40 ml # Bowel Movements 1 Objective PHYSICAL EXAMINATION: GENERAL: The patient is contracted, thin-appearing male, in no apparent distress. HEENT: Eyes, pupils are equal and responsive to light and accommodation. Extraocular movements are intact. NECK: Supple without lymphadenopathy. There is trachea midline noted. There is no erythema about the trachea. CHEST: Mech vent; Decreased breath sounds at bilateral bases with expiratory wheezes, otherwise without rales. CARDIOVASCULAR EXAM: Tachycardic, regular rate. S1, S2 normal without murmurs, rubs, or gallops. ABDOMEN: Soft, nontender, and nondistended. Positive bowel sounds. No evidence of hepatosplenomegaly. Currently, no rebound or guarding noted. EXTREMITIES: Negative for clubbing, cyanosis, or edema. RECTAL/GENITAL: Not performed. NEUROLOGIC: Unable to assess. Assessment/Plan Assessment/Plan ASSESSMENT: This is an 84-year-old male. 1. Hypoxemic respiratory failure. 2. Pneumonia=proteus mirabilis 3. Dysphagia. 4. Functional quadriplegia. 5. Alzheimer's dementia. 6. Fwfsm-dl-skltgze renal failure. 7. Sepsis=citrobacter 8. Hyperkalemia TREATMENT: 1. Hypoxemic respiratory failure/pneumonia. A Pulmonary consultation has been obtained with Dr. Dennis Woodall. The patient is currently intubated in the intensive care unit. 2. Antibiotics= meropenem and Daptomycin. ID=Dr Dorantes. A rapid COVID-19 test was reported as negative. 2. History of dysphagia. The patient is status post PEG placement. 3. Functional quadriplegia. 4. Alzheimer's dementia. 5. Lvnrx-zq-kewbjso renal failure/hyperkalemia A Nephrology consultation has been obtained with Dr. Ronnie Guevara. Continue kayexalate 6. Transfer to [facility] when medically stable Bunny Morocho MD Jan 28, 2020 14:48
--- NOTE | 2020-01-28 17:25 | Cardiology Progress Note ---
Assessment/Plan Assessment/Plan septic shock, the patient is cachectic and bedridden, prognosis is very poor, no primary cardiac issues Subjective Subjective The patient is on vent, unresponsive Objective Last 24 Hour Vital Signs Date Time Temp Pulse Resp B/P (MAP) Pulse Ox O2 Delivery O2 Flow Rate FiO2 01/28/20 17:00 123 26 100/66 (77) 96 01/28/20 16:00 30 01/28/20 16:00 116/69 01/28/20 16:00 Mechanical Ventilator 01/28/20 16:00 100.0 121 25 116/69 (85) 100 01/28/20 15:59 126 25 30 01/28/20 15:00 127 25 108/61 (77) 96 01/28/20 15:00 108/61 01/28/20 14:00 124 26 99/63 (75) 98 01/28/20 14:00 99/63 01/28/20 13:55 107/51 01/28/20 13:00 126 25 107/51 (69) 95 01/28/20 12:40 99.7 01/28/20 12:00 Mechanical Ventilator 01/28/20 12:00 30 01/28/20 12:00 99.7 128 27 97/59 (72) 96 01/28/20 11:00 114/71 01/28/20 11:00 100.5 121 26 114/71 (85) 97 01/28/20 10:43 125 25 30 01/28/20 10:10 128 92/57 01/28/20 10:00 92/57 01/28/20 10:00 119 22 92/57 (69) 96 01/28/20 09:00 94/58 01/28/20 09:00 98.1 125 26 94/58 (70) 94 01/28/20 08:00 128 27 116/101 (106) 94 01/28/20 08:00 116/101 01/28/20 08:00 Mechanical Ventilator 01/28/20 08:00 117 01/28/20 08:00 30 01/28/20 07:09 115 19 30 01/28/20 07:00 105/54 01/28/20 07:00 117 27 111/65 (80) 96 01/28/20 06:30 118 26 01/28/20 06:00 95/71 01/28/20 06:00 122 24 104/60 (75) 97 01/28/20 05:00 122 26 113/59 (77) 96 01/28/20 05:00 104/60 01/28/20 04:00 30 01/28/20 04:00 113/59 01/28/20 04:00 99.6 128 26 111/61 (78) 95 01/28/20 04:00 Mechanical Ventilator 01/28/20 03:30 132 24 30 01/28/20 03:01 123 01/28/20 03:00 124 23 122/69 (86) 99 01/28/20 03:00 111/61 01/28/20 02:00 106/64 01/28/20 02:00 127 24 106/64 (78) 99 01/28/20 01:05 98/59 01/28/20 01:04 94/59 01/28/20 01:04 123 94/59 01/28/20 01:00 108/50 01/28/20 01:00 113 26 108/59 (75) 97 01/28/20 00:00 99.8 123 25 114/99 (104) 99 01/28/20 00:00 40 01/28/20 00:00 114/99 01/28/20 00:00 Mechanical Ventilator 01/27/20 23:30 119 25 40 01/27/20 23:02 119 01/27/20 23:00 122 23 114/55 (74) 99 01/27/20 23:00 114/55 01/27/20 22:00 96/53 01/27/20 22:00 121 23 104/57 (73) 99 01/27/20 21:00 119 25 100/56 (71) 99 01/27/20 21:00 100/56 01/27/20 20:00 98.2 123 24 113/56 (75) 99 20 20:00 Mechanical Ventilator 01/27/20 20:00 40 01/27/20 20:00 113/56 01/27/20 19:45 121 01/27/20 19:30 120 24 113/57 (75) 98 20 19:30 137 26 40 01/27/20 19:00 120 24 102/66 (78) 98 01/27/20 18:30 121 27 108/54 (72) 97 01/27/20 18:00 119 25 103/64 (77) 99 01/27/20 17:30 118 28 139/82 (101) 98 General Appearance: on vent Neck: limited range of motion Rhythm: NSR, PACs Cardiovascular: regular rhythm, tachycardia Respiratory/Chest: crackles/rales Extremities: other - contracted Intake and Output 01/27/20 01/28/20 19:00 07:00 Intake Total 2271.31782 ml 2353.44 ml Output Total 35 ml 40 ml Balance 2236.84561 ml 2313.44 ml Intake Free Water 90 ml IV Total 2221.07548 ml 2263.44 ml Other 50 ml Output Urine Total 35 ml 40 ml # Bowel Movements 1 Laboratory Tests Test 01/28/20 04:10 01/28/20 07:49 White Blood Count 18.7 K/UL (4.8-10.8) H Red Blood Count 2.63 M/UL (4.70-6.10) L Hemoglobin 8.0 G/DL (14.2-18.0) L Hematocrit 25.3 % (42.0-52.0) L Mean Corpuscular Volume 96 FL (80-99) Mean Corpuscular Hemoglobin 30.3 PG (27.0-31.0) Mean Corpuscular Hemoglobin Concent 31.5 G/DL (32.0-36.0) L Red Cell Distribution Width 16.1 % (11.6-14.8) H Platelet Count 109 K/UL (150-450) L Mean Platelet Volume 9.4 FL (6.5-10.1) Neutrophils (%) (Auto) % (45.0-75.0) Lymphocytes (%) (Auto) % (20.0-45.0) Monocytes (%) (Auto) % (1.0-10.0) Eosinophils (%) (Auto) % (0.0-3.0) Basophils (%) (Auto) % (0.0-2.0) Differential Total Cells Counted 100 Neutrophils % (Manual) 86 % (45-75) H Lymphocytes % (Manual) 10 % (20-45) L Monocytes % (Manual) 4 % (1-10) Eosinophils % (Manual) 0 % (0-3) Basophils % (Manual) 0 % (0-2) Band Neutrophils 0 % (0-8) Platelet Estimate Decreased L Platelet Morphology Clumped Platelets 1+ Hypochromasia 1+ Anisocytosis 1+ Sodium Level 139 MMOL/L (136-145) Potassium Level 4.3 MMOL/L (3.5-5.1) Chloride Level 102 MMOL/L (98-107) Carbon Dioxide Level 23 MMOL/L (21-32) Anion Gap 14 mmol/L (5-15) Blood Urea Nitrogen 171 mg/dL (7-18) H Creatinine 5.1 MG/DL (0.55-1.30) H Estimat Glomerular Filtration Rate 10.9 mL/min (>60) Glucose Level 148 MG/DL (74-106) H Calcium Level 6.7 MG/DL (8.5-10.1) L Phosphorus Level 8.1 MG/DL (2.5-4.9) H Magnesium Level 1.7 MG/DL (1.8-2.4) L Total Bilirubin 0.4 MG/DL (0.2-1.0) Aspartate Amino Transf (AST/SGOT) 63 U/L (15-37) H Alanine Aminotransferase (ALT/SGPT) 15 U/L (12-78) Alkaline Phosphatase 84 U/L (46-116) Total Protein 5.5 G/DL (6.4-8.2) L Albumin 0.7 G/DL (3.4-5.0) L Globulin 4.8 g/dL Albumin/Globulin Ratio 0.1 (1.0-2.7) L Arterial Blood pH 7.449 (7.350-7.450) Arterial Blood Partial Pressure CO2 32.8 mmHg (35.0-45.0) L Arterial Blood Partial Pressure O2 61.1 mmHg (75.0-100.0) L Arterial Blood HCO3 22.2 mmol/L (22.0-26.0) Arterial Blood Oxygen Saturation 91.8 % (95-100) L Arterial Blood Base Excess -1.5 (-2-2) Behzad Test Positive Microbiology Date/Time Source Procedure Growth Status 01/26/20 16:30 Blood Blood Culture - Preliminary NO GROWTH AFTER 24 HOURS Resulted 01/26/20 16:20 Blood Blood Culture - Preliminary NO GROWTH AFTER 24 HOURS Resulted Jessica Baez MD Jan 28, 2020 17:25
[2020-01-28] MEDS: Dyna-Hex 2% Top Sol 2oz TOPIC SCH (20:05)
--- NOTE | 2020-01-28 20:19 | Infectious Diseases Prog Note ---
Assessment/Plan Assessment: Septic Shock- increased pressors requirements 01/26 High grade Gram neg bacteremia- from UTI and obstructive uropathy -01/21 BCx 8/ Citrobacter koseri (S Cefepime, Meropenem) Staph bacteremia- both CONS and MRSA -01/21 2 Staph haemolyticus, 2/ MRSA; 01/23 BCx 1/4 CONS; 01/25 Bcx p 2d Echo: no vegetations seen Pneumonia- COVID neg x2 (on same day) Acute on chronic respiratory failure - SP trach/vent dependant -01/23 CXR: Again demonstrated is interstitial disease throughout the left lung as well as right perihilar and basilar interstitial opacities. There is probably a small right pleural effusion. -sp cx P , mirabilis (S Zosyn, Meropenem) -01/21 rapid COVID neg, COVID NAAT neg UTI -u/a wbc 10-15, nit neg, leuk +3; ucx >100k MDR P. stuarti (S Cefepime, Meropenem , Zosyn) Low grade fever, recurrent Severe leukocytosis; improving Hypernatremia Hyperkalemia FRIDA; worsening metabolic acidosis -Renal US: Limited exam, as described, poor visualization of the left kidney. Right and probably left hydronephrosis. Probable bladder mass. 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 UTI and bacteremia 11/2018 COPD Dementia non verbal functional quadriplegia chronic resp failure s/p trach/vent dependent SNF resident ([facility]) DNR Plan: -Daptomycin # 4 (abx d # 01/16) for staph bacteremia -monitor CPK -Continue Meropenem #01/12- for UTI/bacteremia and PNA -01/25 SP AMikacin #5 -01/23 SP IV Vancomycin #3 -01/21 Flagyl x1, Levaquin x 1 -f/u cx -Monitor CBC/CMP, temperatures -COVID19 neg x2 (PCR and rapid); will keep isolation for now until afebrile > 72hrs -ICU/trach/PEG care -aspiration precautions -poor prognosis; consider comfort care -f/u Bcx x2 -CT neck/chest to eval for possible esophagea-tracheal fistula- when more stable Thank you for consulting [facility]. Will continue to follow along with you. Discussed wit RN, Dr Avelar and pharmacist. Subjective Allergies: Coded Allergies: NSAIDS (NON-STEROIDAL ANTI-INFLAMMA (Unverified Allergy, Unknown, 11/27/18) PIPERACILLIN (Unverified Allergy, Unknown, 01/25/19) tolerates carbapenem TAZOBACTAM (Unverified Allergy, Unknown, 11/27/18) Uncoded Allergies: NSAID (Allergy, Unknown, 09/14/18) on vent and pressors Objective Last 24 Hour Vital Signs Date Time Temp Pulse Resp B/P (MAP) Pulse Ox O2 Delivery O2 Flow Rate FiO2 01/28/20 19:07 128 25 30 01/28/20 19:00 120 24 135/69 (91) 97 01/28/20 19:00 126/62 01/28/20 18:48 123 100/66 01/28/20 18:47 100/66 01/28/20 18:03 98.0 01/28/20 18:00 98.0 120 26 114/70 (85) 96 01/28/20 18:00 112/61 01/28/20 17:00 102/58 01/28/20 17:00 123 26 100/66 (77) 96 01/28/20 16:00 30 01/28/20 16:00 127 01/28/20 16:00 116/69 01/28/20 16:00 Mechanical Ventilator 01/28/20 16:00 100.0 121 25 116/69 (85) 100 01/28/20 15:59 126 25 30 01/28/20 15:00 127 25 108/61 (77) 96 01/28/20 15:00 108/61 01/28/20 14:00 124 26 99/63 (75) 98 01/28/20 14:00 99/63 01/28/20 13:55 107/51 01/28/20 13:00 126 25 107/51 (69) 95 01/28/20 12:00 Mechanical Ventilator 01/28/20 12:00 129 01/28/20 12:00 30 01/28/20 12:00 99.7 128 27 97/59 (72) 96 01/28/20 11:00 114/71 01/28/20 11:00 100.5 121 26 114/71 (85) 97 01/28/20 10:43 125 25 30 01/28/20 10:10 128 92/57 01/28/20 10:00 92/57 01/28/20 10:00 119 22 92/57 (69) 96 01/28/20 09:00 94/58 01/28/20 09:00 98.1 125 26 94/58 (70) 94 01/28/20 08:00 128 27 116/101 (106) 94 01/28/20 08:00 116/101 01/28/20 08:00 Mechanical Ventilator 01/28/20 08:00 117 01/28/20 08:00 30 01/28/20 07:09 115 19 30 01/28/20 07:00 105/54 01/28/20 07:00 117 27 111/65 (80) 96 01/28/20 06:30 118 26 01/28/20 06:00 95/71 01/28/20 06:00 122 24 104/60 (75) 97 01/28/20 05:00 122 26 113/59 (77) 96 01/28/20 05:00 104/60 01/28/20 04:00 30 01/28/20 04:00 113/59 01/28/20 04:00 99.6 128 26 111/61 (78) 95 01/28/20 04:00 Mechanical Ventilator 01/28/20 03:30 132 24 30 01/28/20 03:01 123 01/28/20 03:00 124 23 122/69 (86) 99 01/28/20 03:00 111/61 01/28/20 02:00 106/64 01/28/20 02:00 127 24 106/64 (78) 99 01/28/20 01:05 98/59 01/28/20 01:04 94/59 01/28/20 01:04 123 94/59 01/28/20 01:00 108/50 01/28/20 01:00 113 26 108/59 (75) 97 01/28/20 00:00 99.8 123 25 114/99 (104) 99 01/28/20 00:00 40 01/28/20 00:00 114/99 01/28/20 00:00 Mechanical Ventilator 01/27/20 23:30 119 25 40 01/27/20 23:02 119 01/27/20 23:00 122 23 114/55 (74) 99 01/27/20 23:00 114/55 01/27/20 22:00 96/53 01/27/20 22:00 121 23 104/57 (73) 99 01/27/20 21:00 119 25 100/56 (71) 99 01/27/20 21:00 100/56 Height (Feet): 5 Height (Inches): 5.00 Weight (Pounds): 140 General Appearance: no acute distress HEENT: anicteric Respiratory/Chest: normal breath sounds Cardiovascular: normal rate Microbiology Date/Time Source Procedure Growth Status 01/26/20 16:30 Blood Blood Culture - Preliminary NO GROWTH AFTER 24 HOURS Resulted 01/26/20 16:20 Blood Blood Culture - Preliminary NO GROWTH AFTER 24 HOURS Resulted Laboratory Tests Test 01/28/20 04:10 01/28/20 07:49 White Blood Count 18.7 K/UL (4.8-10.8) H Red Blood Count 2.63 M/UL (4.70-6.10) L Hemoglobin 8.0 G/DL (14.2-18.0) L Hematocrit 25.3 % (42.0-52.0) L Mean Corpuscular Volume 96 FL (80-99) Mean Corpuscular Hemoglobin 30.3 PG (27.0-31.0) Mean Corpuscular Hemoglobin Concent 31.5 G/DL (32.0-36.0) L Red Cell Distribution Width 16.1 % (11.6-14.8) H Platelet Count 109 K/UL (150-450) L Mean Platelet Volume 9.4 FL (6.5-10.1) Neutrophils (%) (Auto) % (45.0-75.0) Lymphocytes (%) (Auto) % (20.0-45.0) Monocytes (%) (Auto) % (1.0-10.0) Eosinophils (%) (Auto) % (0.0-3.0) Basophils (%) (Auto) % (0.0-2.0) Differential Total Cells Counted 100 Neutrophils % (Manual) 86 % (45-75) H Lymphocytes % (Manual) 10 % (20-45) L Monocytes % (Manual) 4 % (1-10) Eosinophils % (Manual) 0 % (0-3) Basophils % (Manual) 0 % (0-2) Band Neutrophils 0 % (0-8) Platelet Estimate Decreased L Platelet Morphology Clumped Platelets 1+ Hypochromasia 1+ Anisocytosis 1+ Sodium Level 139 MMOL/L (136-145) Potassium Level 4.3 MMOL/L (3.5-5.1) Chloride Level 102 MMOL/L (98-107) Carbon Dioxide Level 23 MMOL/L (21-32) Anion Gap 14 mmol/L (5-15) Blood Urea Nitrogen 171 mg/dL (7-18) H Creatinine 5.1 MG/DL (0.55-1.30) H Estimat Glomerular Filtration Rate 10.9 mL/min (>60) Glucose Level 148 MG/DL (74-106) H Calcium Level 6.7 MG/DL (8.5-10.1) L Phosphorus Level 8.1 MG/DL (2.5-4.9) H Magnesium Level 1.7 MG/DL (1.8-2.4) L Total Bilirubin 0.4 MG/DL (0.2-1.0) Aspartate Amino Transf (AST/SGOT) 63 U/L (15-37) H Alanine Aminotransferase (ALT/SGPT) 15 U/L (12-78) Alkaline Phosphatase 84 U/L (46-116) Total Protein 5.5 G/DL (6.4-8.2) L Albumin 0.7 G/DL (3.4-5.0) L Globulin 4.8 g/dL Albumin/Globulin Ratio 0.1 (1.0-2.7) L Arterial Blood pH 7.449 (7.350-7.450) Arterial Blood Partial Pressure CO2 32.8 mmHg (35.0-45.0) L Arterial Blood Partial Pressure O2 61.1 mmHg (75.0-100.0) L Arterial Blood HCO3 22.2 mmol/L (22.0-26.0) Arterial Blood Oxygen Saturation 91.8 % (95-100) L Arterial Blood Base Excess -1.5 (-2-2) Behzad Test Positive Current Medications Medications (Trade) Dose Ordered Sig/Margarette Route PRN Reason Start Time Stop Time Status Last Admin Dose Admin Acetaminophen (Tylenol) 650 mg Q4H PRN GT Temp >100.5 01/28/20 21:30 02/27/20 21:29 Allopurinol (allopurinoL) 300 mg DAILY GT 01/27/20 09:00 02/26/20 08:59 01/28/20 09:38 Chlorhexidine Gluconate (Flaca-Hex 2%) 1 applic DAILY@2000 TOPIC 01/26/20 20:00 04/25/20 19:59 01/28/20 20:05 Daptomycin 400 mg/ Sodium Chloride 55 ml @ 100 mls/hr Q48H IV 01/25/20 12:00 02/01/20 11:59 01/27/20 12:20 Heparin Sodium (Porcine) (Heparin 5000 units/ml) 5,000 units EVERY 12 HOURS SUBQ 01/22/20 21:00 03/07/20 20:59 01/24/20 20:56 Lorazepam (Ativan 2mg/ml 1ml) 2 mg Q2H PRN IV For Anxiety 01/22/20 08:15 01/29/20 08:14 Meropenem 500 mg/ Sodium Chloride 55 ml @ 110 mls/hr Q12H IVPB 01/22/20 14:00 01/31/20 23:59 01/28/20 13:28 Midodrine (Pro-Amatine) 10 mg Q8HR GT 01/24/20 14:00 04/23/20 13:59 01/28/20 13:28 Morphine Sulfate (Morphine Sulfate) 4 mg Q4H PRN IVP Severe Pain (Pain Scale 7-10) 01/22/20 08:15 01/29/20 08:14 Norepinephrine Bitartrate 16 mg/ Dextrose 500 ml @ 0 mls/hr Q24H IV 01/27/20 09:00 02/26/20 08:59 01/28/20 18:47 Ondansetron HCl (Zofran) 4 mg Q6H PRN IVP Nausea & Vomiting 01/22/20 08:15 02/21/20 08:14 Pantoprazole (Protonix) 40 mg Q12HR IV 01/22/20 09:30 02/21/20 09:29 01/28/20 09:39 Phenylephrine HCl 50 mg/Dextrose 250 ml @ 0 mls/hr Q24H IV 01/27/20 07:03 02/26/20 07:02 01/28/20 18:48 Polyethylene Glycol (Miralax) 17 gm DAILYPRN PRN ORAL Constipation 01/22/20 08:15 02/21/20 08:14 Sodium Bicarbonate 100 ml/Dextrose/ Sodium Chloride 1,100 ml @ 100 mls/hr Q11H IV 01/25/20 09:00 02/24/20 08:59 01/28/20 14:34 Sodium Citrate (Bicitra) 30 ml EVERY 6 HOURS GT 01/24/20 18:00 02/23/20 17:59 01/28/20 17:32 Luis Torres MD Jan 28, 2020 20:19
[2020-01-28] MEDS ORDERED: Acetaminophen 650mg/20.3ml GT PRN (21:30)
[2020-01-29] VITALS (64 sets, daily range): BP systolic 58–119; BP diastolic 41–91
[2020-01-29] MEDS: Sodium Bicarbonate 100 ML in D5 1/2NS 1,000 ML IV SCH ×3 (01:29→22:53)
[2020-01-29] MEDS: Meropenem 500 MG in NS 55 ML IVPB SCH ×2 (01:29→13:40)
[2020-01-29] MEDS: Phenylephrine 50 MG in D5W 245 ML IV SCH ×5 (02:04→22:54)
[2020-01-29] MEDS: Norepinephrine Bitartrate 16 MG in D5W 500ml 484 ML IV SCH ×3 (03:08→22:21)
[2020-01-29 05:18] LABS: HEMATOCRIT 21.3 % (42.0-52.0); MEAN CORPUSCULAR VOLUME 94 FL (80-99); RED BLOOD COUNT 2.26 M/UL (4.70-6.10); RED CELL DISTRIBUTION WIDTH 15.3 % (11.6-14.8)
[2020-01-29] MEDS: Sodium Citrate 30ml GT SCH ×3 (05:47→17:27)
[2020-01-29] MEDS: Midodrine 10mg tab GT SCH ×3 (05:48→20:44)
[2020-01-29 06:18] LABS: WHITE BLOOD COUNT 28.7 K/UL (4.8-10.8)
[2020-01-29 06:19] LABS: HEMOGLOBIN 6.9 G/DL (14.2-18.0)
[2020-01-29 07:15] LABS: ALANINE AMINOTRANSFERASE 20 U/L (12-78); ALBUMIN 0.8 G/DL (3.4-5.0); ALBUMIN/GLOBULIN RATIO 0.2 (1.0-2.7); ALKALINE PHOSPHATASE 105 U/L (46-116); ANION GAP 16 mmol/L (5-15); ASPARTATE AMINO TRANSFERASE 64 U/L (15-37); BILIRUBIN,TOTAL 0.6 MG/DL (0.2-1.0); BLOOD UREA NITROGEN 157 mg/dL (7-18); CARBON DIOXIDE 26 MMOL/L (21-32); CHLORIDE 96 MMOL/L (98-107); PHOSPHORUS 9.4 MG/DL (2.5-4.9); POTASSIUM 3.7 MMOL/L (3.5-5.1); SODIUM 138 MMOL/L (136-145)
[2020-01-29 08:01] LABS: PLATELET COUNT 99 K/UL (150-450)
[2020-01-29] MEDS ORDERED: NS 500ML ONE (08:27)
[2020-01-29] MEDS ORDERED: D5W 275ml ONE (08:27)
[2020-01-29] MEDS ORDERED: Tubing IV Secondary IV ONE (08:27)
[2020-01-29] MEDS ORDERED: NS 275ml ONE (08:27)
--- NOTE | 2020-01-29 08:28 | General Progress Note ---
Assessment/Plan Problem List: (1) Severe anemia ICD Codes: D64.9 - Anemia, unspecified SNOMED: 963480033 (2) Encephalopathy acute ICD Codes: G93.40 - Encephalopathy, unspecified SNOMED: 98886155, 180853673 (3) ATN (acute tubular necrosis) ICD Codes: N17.0 - Acute kidney failure with tubular necrosis SNOMED: 28691532 (4) Feeding by G-tube ICD Codes: Z93.1 - Gastrostomy status SNOMED: 846947861, 292399964, 443711739 (5) Pneumonia ICD Codes: J18.9 - Pneumonia, unspecified organism SNOMED: 889374653 (6) Chronic respiratory failure ICD Codes: J96.10 - Chronic respiratory failure, unspecified whether with hypoxia or hypercapnia SNOMED: 30814360 Assessment/Plan: fu H&H prn blood transfusion>>one unit for today abx per ID respiratory care icu care d/w surg, will hold GTF for now>> but still lots of secretion around the trach CT of the neck and chest, when patient is more stable check coags for tomorrow poor prognosis will fu Subjective ROS Limited/Unobtainable: No Allergies: Coded Allergies: NSAIDS (NON-STEROIDAL ANTI-INFLAMMA (Unverified Allergy, Unknown, 11/27/18) PIPERACILLIN (Unverified Allergy, Unknown, 01/25/19) tolerates carbapenem TAZOBACTAM (Unverified Allergy, Unknown, 11/27/18) Uncoded Allergies: NSAID (Allergy, Unknown, 09/14/18) Objective Last 24 Hour Vital Signs Date Time Temp Pulse Resp B/P (MAP) Pulse Ox O2 Delivery O2 Flow Rate FiO2 01/29/20 07:41 123 92/62 01/29/20 07:00 114 25 114/91 (99) 97 01/29/20 07:00 114/91 01/29/20 06:56 108 25 30 01/29/20 06:30 113 25 01/29/20 06:30 113 25 104/68 (80) 96 01/29/20 06:00 117/84 01/29/20 06:00 114 25 117/84 (95) 95 01/29/20 05:45 115 24 112/73 (86) 95 01/29/20 05:37 116 25 101/62 (75) 95 01/29/20 05:30 114 24 70/52 (58) 94 01/29/20 05:00 115/74 01/29/20 05:00 122 25 115/74 (88) 93 01/29/20 04:30 118 24 115/53 (73) 95 01/29/20 04:00 119/63 01/29/20 04:00 30 01/29/20 04:00 Mechanical Ventilator 01/29/20 04:00 115 01/29/20 04:00 98.8 115 24 119/63 (81) 94 01/29/20 03:30 118 28 103/75 (84) 94 01/29/20 03:16 115 26 30 01/29/20 03:08 106/53 01/29/20 03:00 124 27 106/53 (70) 94 01/29/20 02:30 119 26 107/51 (69) 95 01/29/20 02:15 87/52 01/29/20 02:04 115 110/51 01/29/20 02:00 120 24 90/55 (67) 95 01/29/20 02:00 90/55 01/29/20 01:30 120 26 103/59 (74) 95 01/29/20 01:15 126 26 98/58 (71) 95 01/29/20 01:00 108/73 01/29/20 01:00 120 26 108/73 (85) 96 01/29/20 00:45 104 23 92/57 (69) 97 01/29/20 00:30 101 26 89/51 (64) 97 01/29/20 00:30 89/51 01/29/20 00:29 103 26 93/45 (61) 97 01/29/20 00:22 105 25 80/41 (54) 97 01/29/20 00:15 103 24 88/59 (69) 98 01/29/20 00:15 88/59 01/29/20 00:00 103 01/29/20 00:00 30 01/29/20 00:00 97.8 103 25 98/59 (72) 97 01/29/20 00:00 98/59 01/29/20 00:00 Mechanical Ventilator 01/28/20 23:30 101 24 100/56 (71) 99 7/25/20 23:00 102 20 30 01/28/20 23:00 103/71 720 23:00 100 24 103/71 (82) 100 20 22:30 103 25 90/54 (66) 97 20 22:00 95/50 720 22:00 100 23 95/50 (65) 97 20 21:45 122 24 116/56 (76) 96 01/28/20 21:30 118 25 112/48 (69) 96 01/28/20 21:00 100/55 720 21:00 119 24 100/55 (70) 96 20 20:30 118 24 93/59 (70) 96 01/28/20 20:24 129 01/28/20 20:00 Mechanical Ventilator 01/28/20 20:00 30 01/28/20 20:00 97.8 121 25 122/77 (92) 96 20 20:00 122/77 01/28/20 19:30 123 26 111/64 (80) 96 01/28/20 19:07 128 25 30 01/28/20 19:00 120 24 135/69 (91) 97 20 19:00 126/62 01/28/20 18:48 123 100/66 01/28/20 18:47 100/66 01/28/20 18:03 98.0 01/28/20 18:00 98.0 120 26 114/70 (85) 96 01/28/20 18:00 112/61 01/28/20 17:00 102/58 01/28/20 17:00 123 26 100/66 (77) 96 01/28/20 16:00 30 01/28/20 16:00 127 01/28/20 16:00 116/69 01/28/20 16:00 Mechanical Ventilator 01/28/20 16:00 100.0 121 25 116/69 (85) 100 01/28/20 15:59 126 25 30 01/28/20 15:00 127 25 108/61 (77) 96 20 15:00 108/61 01/28/20 14:00 124 26 99/63 (75) 98 01/28/20 14:00 99/63 01/28/20 13:55 107/51 01/28/20 13:00 126 25 107/51 (69) 95 01/28/20 12:00 Mechanical Ventilator 01/28/20 12:00 129 01/28/20 12:00 30 01/28/20 12:00 99.7 128 27 97/59 (72) 96 01/28/20 11:00 114/71 01/28/20 11:00 100.5 121 26 114/71 (85) 97 01/28/20 10:43 125 25 30 01/28/20 10:10 128 92/57 01/28/20 10:00 92/57 01/28/20 10:00 119 22 92/57 (69) 96 01/28/20 09:00 94/58 01/28/20 09:00 98.1 125 26 94/58 (70) 94 Intake and Output 01/28/20 01/29/20 19:00 07:00 Intake Total 2727.49 ml 2548.00 ml Output Total 15 ml 15 ml Balance 2712.49 ml 2533.00 ml IV Total 2477.49 ml 2398.00 ml Other 250 ml 150 ml Output Urine Total 15 ml 15 ml Stool Total 0 ml # Bowel Movements 1 Laboratory Tests 01/29/20 04:00: White Blood Count 28.7#*H, Red Blood Count 2.26L, Hemoglobin 6.9*L, Hematocrit 21.3L, Mean Corpuscular Volume 94, Mean Corpuscular Hemoglobin 30.6, Mean Corpuscular Hemoglobin Concent 32.4, Red Cell Distribution Width 15.3H, Platelet Count 99L, Mean Platelet Volume 10.3H, Neutrophils (%) (Auto) , Lymphocytes (%) (Auto) , Monocytes (%) (Auto) , Eosinophils (%) (Auto) , Basophils (%) (Auto) , Differential Total Cells Counted 100, Neutrophils % ( Manual) 90H, Lymphocytes % (Manual) 3L, Monocytes % (Manual) 4, Eosinophils % ( Manual) 0, Basophils % (Manual) 0, Band Neutrophils 3, Platelet Estimate DecreasedL, Platelet Morphology , Clumped Platelets 1+, Polychromasia 1+, Hypochromasia 1+, Anisocytosis 1+, Erythrocyte Sedimentation Rate 129H, Sodium Level 138, Potassium Level 3.7, Chloride Level 96L, Carbon Dioxide Level 26, Anion Gap 16H, Blood Urea Nitrogen 157H, Creatinine 5.0H, Estimat Glomerular Filtration Rate 11.2, Glucose Level 148H, Calcium Level 6.0L, Phosphorus Level 9.4H, Magnesium Level 2.0, Total Bilirubin 0.6, Aspartate Amino Transf (AST/SGOT ) 64H, Alanine Aminotransferase (ALT/SGPT) 20, Alkaline Phosphatase 105, C- Reactive Protein, Quantitative 25.8H, Total Protein 5.1L, Albumin 0.8L, Globulin 4.3, Albumin/Globulin Ratio 0.2L Height (Feet): 5 Height (Inches): 5.00 Weight (Pounds): 138 General Appearance: lethargic EENT: normal ENT inspection Neck: supple Cardiovascular: normal rate Respiratory/Chest: decreased breath sounds Abdomen: soft, hypoactive bowel sounds Extremities: non-tender Norm Thurston MD Jan 29, 2020 08:28
[2020-01-29] MEDS: Heparin 5000 units/ml inj SUBQ SCH ×2 (09:00→20:43)
[2020-01-29] MEDS: Pantoprazole Inj IV SCH ×2 (09:13→20:42)
[2020-01-29] MEDS: Aluminum Hydroxide Gel Susp 15ml GT SCH ×3 (09:14→20:44)
--- NOTE | 2020-01-29 10:51 | Nephrology Progress Note ---
Assessment/Plan Problem List: (1) FRIDA (acute kidney injury) (2) Sepsis (3) Ventilator dependent (4) Bilateral pleural effusion (5) Decubitus skin ulcer (6) Electrolyte imbalance Assessment: Hyperkalemia, hypernatremia Assessment FRIDA Dehydration, hypernatremia, hyperkalemia Anemia Chronic vent dependent, with superimposed acute component Bilateral pleural effusion Sepsis, leukocytosis, UTI Functional quadriplegia History of coronary artery disease and [place] Multiple decubiti Chronic malnutrition Plan January 28: Doing poorly. Hypotensive on max pressors. Renal function worsening. No candidate for hemodialysis treatment. Phosphate supplements given. Discussed with RN. January 27: Continue to do poorly. 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 Continue present management. Discussed with RN. Magnesium supplement given. January 26: Serum potassium within normal limit. Continues to be on Kayexalate. Digoxin level down to 1.7. Continue per consultants. Continue to do poorly. Patient DNR. January 25: Potassium remains elevated. Kayexalate given. Digoxin level higher to 2.1 . IV digoxin discontinued yesterday. Doing poorly. Continue present management. January 24: Potassium still high. Kayexalate every 6 hours ordered. Patient continues to do poorly. Digoxin level is 2, will hold IV digoxin for now. January 23: Potassium remains high. Kayexalate given. Bicitra started. Midodrin started. Patient DNR now. Continue per consultants. Overall prognosis poor. Hemodynamically unstable for dialysis treatment. Per order. Patient is doing poorly. No urine output. Labs reviewed. Discussed with RN and Miles. Kayexalate given for hyperkalemia. IV D5 and a half normal saline Pressors Antibiotics Skin care Continue per consultants Monitor renal parameters Avoid nephrotoxic's Patient now DNR. No candidate for dialysis treatment due to multiple medical issues, sepsis, poor prognosis. Subjective ROS Limited/Unobtainable: Yes Objective Objective Last 24 Hour Vital Signs Date Time Temp Pulse Resp B/P (MAP) Pulse Ox O2 Delivery O2 Flow Rate FiO2 01/29/20 10:42 111 25 30 01/29/20 07:41 123 92/62 01/29/20 07:00 114 25 114/91 (99) 97 01/29/20 07:00 114/91 01/29/20 06:56 108 25 30 01/29/20 06:30 113 25 01/29/20 06:30 113 25 104/68 (80) 96 01/29/20 06:00 117/84 01/29/20 06:00 114 25 117/84 (95) 95 01/29/20 05:45 115 24 112/73 (86) 95 01/29/20 05:37 116 25 101/62 (75) 95 01/29/20 05:30 114 24 70/52 (58) 94 01/29/20 05:00 115/74 01/29/20 05:00 122 25 115/74 (88) 93 01/29/20 04:30 118 24 115/53 (73) 95 01/29/20 04:00 119/63 01/29/20 04:00 30 01/29/20 04:00 Mechanical Ventilator 01/29/20 04:00 115 01/29/20 04:00 98.8 115 24 119/63 (81) 94 01/29/20 03:30 118 28 103/75 (84) 94 01/29/20 03:16 115 26 30 01/29/20 03:08 106/53 01/29/20 03:00 124 27 106/53 (70) 94 01/29/20 02:30 119 26 107/51 (69) 95 01/29/20 02:15 87/52 01/29/20 02:04 115 110/51 01/29/20 02:00 120 24 90/55 (67) 95 01/29/20 02:00 90/55 01/29/20 01:30 120 26 103/59 (74) 95 01/29/20 01:15 126 26 98/58 (71) 95 01/29/20 01:00 108/73 01/29/20 01:00 120 26 108/73 (85) 96 01/29/20 00:45 104 23 92/57 (69) 97 01/29/20 00:30 101 26 89/51 (64) 97 01/29/20 00:30 89/51 01/29/20 00:29 103 26 93/45 (61) 97 01/29/20 00:22 105 25 80/41 (54) 97 01/29/20 00:15 103 24 88/59 (69) 98 01/29/20 00:15 88/59 01/29/20 00:00 103 01/29/20 00:00 30 01/29/20 00:00 97.8 103 25 98/59 (72) 97 01/29/20 00:00 98/59 01/29/20 00:00 Mechanical Ventilator 01/28/20 23:30 101 24 100/56 (71) 99 01/28/20 23:00 102 20 30 01/28/20 23:00 103/71 01/28/20 23:00 100 24 103/71 (82) 100 01/28/20 22:30 103 25 90/54 (66) 97 01/28/20 22:00 95/50 01/28/20 22:00 100 23 95/50 (65) 97 01/28/20 21:45 122 24 116/56 (76) 96 01/28/20 21:30 118 25 112/48 (69) 96 01/28/20 21:00 100/55 01/28/20 21:00 119 24 100/55 (70) 96 01/28/20 20:30 118 24 93/59 (70) 96 01/28/20 20:24 129 01/28/20 20:00 Mechanical Ventilator 01/28/20 20:00 30 01/28/20 20:00 97.8 121 25 122/77 (92) 96 01/28/20 20:00 122/77 01/28/20 19:30 123 26 111/64 (80) 96 01/28/20 19:07 128 25 30 01/28/20 19:00 120 24 135/69 (91) 97 01/28/20 19:00 126/62 01/28/20 18:48 123 100/66 01/28/20 18:47 100/66 01/28/20 18:03 98.0 01/28/20 18:00 98.0 120 26 114/70 (85) 96 01/28/20 18:00 112/61 01/28/20 17:00 102/58 01/28/20 17:00 123 26 100/66 (77) 96 01/28/20 16:00 30 01/28/20 16:00 127 01/28/20 16:00 116/69 01/28/20 16:00 Mechanical Ventilator 01/28/20 16:00 100.0 121 25 116/69 (85) 100 01/28/20 15:59 126 25 30 01/28/20 15:00 127 25 108/61 (77) 96 01/28/20 15:00 108/61 01/28/20 14:00 124 26 99/63 (75) 98 01/28/20 14:00 99/63 01/28/20 13:55 107/51 01/28/20 13:00 126 25 107/51 (69) 95 01/28/20 12:00 Mechanical Ventilator 01/28/20 12:00 129 01/28/20 12:00 30 01/28/20 12:00 99.7 128 27 97/59 (72) 96 01/28/20 11:00 114/71 01/28/20 11:00 100.5 121 26 114/71 (85) 97 Intake and Output 01/28/20 01/29/20 19:00 07:00 Intake Total 2727.49 ml 2548.00 ml Output Total 15 ml 15 ml Balance 2712.49 ml 2533.00 ml IV Total 2477.49 ml 2398.00 ml Other 250 ml 150 ml Output Urine Total 15 ml 15 ml Stool Total 0 ml # Bowel Movements 1 Current Medications Medications (Trade) Dose Ordered Sig/Margarette Route PRN Reason Start Time Stop Time Status Last Admin Dose Admin Acetaminophen (Tylenol) 650 mg Q4H PRN GT Temp >100.5 01/28/20 21:30 02/27/20 21:29 Allopurinol (allopurinoL) 300 mg DAILY GT 01/27/20 09:00 02/26/20 08:59 01/28/20 09:38 Aluminum Hydroxide (Amphojel) 1,920 mg Q6H GT 01/29/20 10:00 02/28/20 09:59 Chlorhexidine Gluconate (Flaca-Hex 2%) 1 applic DAILY@2000 TOPIC 01/26/20 20:00 04/25/20 19:59 01/28/20 20:05 Daptomycin 400 mg/ Sodium Chloride 55 ml @ 100 mls/hr Q48H IV 01/25/20 12:00 02/01/20 11:59 01/27/20 12:20 Heparin Sodium (Porcine) (Heparin 5000 units/ml) 5,000 units EVERY 12 HOURS SUBQ 01/22/20 21:00 9/2/20 20:59 01/24/20 20:56 Meropenem 500 mg/ Sodium Chloride 55 ml @ 110 mls/hr Q12H IVPB 01/22/20 14:00 01/31/20 23:59 01/29/20 01:29 Midodrine (Pro-Amatine) 10 mg Q8HR GT 01/24/20 14:00 04/23/20 13:59 01/29/20 05:48 Norepinephrine Bitartrate 16 mg/ Dextrose 500 ml @ 0 mls/hr Q24H IV 01/27/20 09:00 02/26/20 08:59 01/29/20 03:08 Ondansetron HCl (Zofran) 4 mg Q6H PRN IVP Nausea & Vomiting 01/22/20 08:15 02/21/20 08:14 Pantoprazole (Protonix) 40 mg Q12HR IV 01/22/20 09:30 02/21/20 09:29 01/29/20 09:13 Phenylephrine HCl 50 mg/Dextrose 250 ml @ 0 mls/hr Q24H IV 01/27/20 07:03 02/26/20 07:02 01/29/20 07:41 Polyethylene Glycol (Miralax) 17 gm DAILYPRN PRN ORAL Constipation 01/22/20 08:15 02/21/20 08:14 Sodium Bicarbonate 100 ml/Dextrose/ Sodium Chloride 1,100 ml @ 100 mls/hr Q11H IV 01/25/20 09:00 02/24/20 08:59 01/29/20 01:29 Sodium Citrate (Bicitra) 30 ml EVERY 6 HOURS GT 01/24/20 18:00 02/23/20 17:59 01/29/20 05:47 Laboratory Tests 01/29/20 04:00: White Blood Count 28.7#*H, Red Blood Count 2.26L, Hemoglobin 6.9*L, Hematocrit 21.3L, Mean Corpuscular Volume 94, Mean Corpuscular Hemoglobin 30.6, Mean Corpuscular Hemoglobin Concent 32.4, Red Cell Distribution Width 15.3H, Platelet Count 99L, Mean Platelet Volume 10.3H, Neutrophils (%) (Auto) , Lymphocytes (%) (Auto) , Monocytes (%) (Auto) , Eosinophils (%) (Auto) , Basophils (%) (Auto) , Differential Total Cells Counted 100, Neutrophils % ( Manual) 90H, Lymphocytes % (Manual) 3L, Monocytes % (Manual) 4, Eosinophils % ( Manual) 0, Basophils % (Manual) 0, Band Neutrophils 3, Platelet Estimate DecreasedL, Platelet Morphology , Clumped Platelets 1+, Polychromasia 1+, Hypochromasia 1+, Anisocytosis 1+, Erythrocyte Sedimentation Rate 129H, Sodium Level 138, Potassium Level 3.7, Chloride Level 96L, Carbon Dioxide Level 26, Anion Gap 16H, Blood Urea Nitrogen 157H, Creatinine 5.0H, Estimat Glomerular Filtration Rate 11.2, Glucose Level 148H, Calcium Level 6.0L, Phosphorus Level 9.4H, Magnesium Level 2.0, Total Bilirubin 0.6, Aspartate Amino Transf (AST/SGOT ) 64H, Alanine Aminotransferase (ALT/SGPT) 20, Alkaline Phosphatase 105, C- Reactive Protein, Quantitative 25.8H, Total Protein 5.1L, Albumin 0.8L, Globulin 4.3, Albumin/Globulin Ratio 0.2L Height (Feet): 5 Height (Inches): 5.00 Weight (Pounds): 138 General Appearance: mild distress EENT: other - Being vented Cardiovascular: tachycardia Respiratory/Chest: decreased breath sounds Abdomen: distended Ronnie Guevara MD Jan 29, 2020 10:51
[2020-01-29] MEDS: DAPTOmycin 400 MG in NS 55 ML IV SCH (11:58)
--- NOTE | 2020-01-29 12:30 | Surgery Progress Note ---
Surgery Progress Note Subjective Additional Comments ill appearing unchanged labs noted still draining plan CT pending Objective Last 24 Hour Vital Signs Date Time Temp Pulse Resp B/P (MAP) Pulse Ox O2 Delivery O2 Flow Rate FiO2 01/29/20 11:30 117 24 96/76 (83) 98 01/29/20 11:00 117 24 92/64 (73) 98 01/29/20 10:42 111 25 30 01/29/20 10:30 111 24 100/67 (78) 97 01/29/20 10:00 118 25 89/61 (70) 100 01/29/20 09:30 110 24 106/57 (73) 96 01/29/20 09:00 113 24 108/71 (83) 97 01/29/20 08:30 114 24 102/67 (79) 97 01/29/20 08:00 30 01/29/20 08:00 98.5 114 24 107/71 (83) 97 01/29/20 08:00 Mechanical Ventilator 01/29/20 07:41 123 92/62 01/29/20 07:00 114 25 114/91 (99) 97 01/29/20 07:00 114/91 01/29/20 06:56 108 25 30 01/29/20 06:30 113 25 01/29/20 06:30 113 25 104/68 (80) 96 01/29/20 06:00 117/84 01/29/20 06:00 114 25 117/84 (95) 95 01/29/20 05:45 115 24 112/73 (86) 95 01/29/20 05:37 116 25 101/62 (75) 95 01/29/20 05:30 114 24 70/52 (58) 94 01/29/20 05:00 115/74 01/29/20 05:00 122 25 115/74 (88) 93 01/29/20 04:30 118 24 115/53 (73) 95 01/29/20 04:00 119/63 01/29/20 04:00 30 01/29/20 04:00 Mechanical Ventilator 01/29/20 04:00 115 01/29/20 04:00 98.8 115 24 119/63 (81) 94 01/29/20 03:30 118 28 103/75 (84) 94 01/29/20 03:16 115 26 30 01/29/20 03:08 106/53 01/29/20 03:00 124 27 106/53 (70) 94 01/29/20 02:30 119 26 107/51 (69) 95 01/29/20 02:15 87/52 01/29/20 02:04 115 110/51 01/29/20 02:00 120 24 90/55 (67) 95 01/29/20 02:00 90/55 01/29/20 01:30 120 26 103/59 (74) 95 01/29/20 01:15 126 26 98/58 (71) 95 01/29/20 01:00 108/73 01/29/20 01:00 120 26 108/73 (85) 96 01/29/20 00:45 104 23 92/57 (69) 97 01/29/20 00:30 101 26 89/51 (64) 97 01/29/20 00:30 89/51 01/29/20 00:29 103 26 93/45 (61) 97 01/29/20 00:22 105 25 80/41 (54) 97 01/29/20 00:15 103 24 88/59 (69) 98 01/29/20 00:15 88/59 01/29/20 00:00 103 01/29/20 00:00 30 01/29/20 00:00 97.8 103 25 98/59 (72) 97 01/29/20 00:00 98/59 01/29/20 00:00 Mechanical Ventilator 01/28/20 23:30 101 24 100/56 (71) 99 01/28/20 23:00 102 20 30 01/28/20 23:00 103/71 01/28/20 23:00 100 24 103/71 (82) 100 01/28/20 22:30 103 25 90/54 (66) 97 01/28/20 22:00 95/50 01/28/20 22:00 100 23 95/50 (65) 97 01/28/20 21:45 122 24 116/56 (76) 96 01/28/20 21:30 118 25 112/48 (69) 96 01/28/20 21:00 100/55 01/28/20 21:00 119 24 100/55 (70) 96 01/28/20 20:30 118 24 93/59 (70) 96 01/28/20 20:24 129 01/28/20 20:00 Mechanical Ventilator 01/28/20 20:00 30 01/28/20 20:00 97.8 121 25 122/77 (92) 96 01/28/20 20:00 122/77 01/28/20 19:30 123 26 111/64 (80) 96 01/28/20 19:07 128 25 30 01/28/20 19:00 120 24 135/69 (91) 97 01/28/20 19:00 126/62 01/28/20 18:48 123 100/66 01/28/20 18:47 100/66 01/28/20 18:03 98.0 01/28/20 18:00 98.0 120 26 114/70 (85) 96 01/28/20 18:00 112/61 01/28/20 17:00 102/58 01/28/20 17:00 123 26 100/66 (77) 96 01/28/20 16:00 30 01/28/20 16:00 127 01/28/20 16:00 116/69 01/28/20 16:00 Mechanical Ventilator 01/28/20 16:00 100.0 121 25 116/69 (85) 100 01/28/20 15:59 126 25 30 01/28/20 15:00 127 25 108/61 (77) 96 01/28/20 15:00 108/61 01/28/20 14:00 124 26 99/63 (75) 98 01/28/20 14:00 99/63 01/28/20 13:55 107/51 01/28/20 13:00 126 25 107/51 (69) 95 I&O Intake and Output 01/28/20 01/29/20 19:00 07:00 Intake Total 2727.49 ml 2548.00 ml Output Total 15 ml 15 ml Balance 2712.49 ml 2533.00 ml IV Total 2477.49 ml 2398.00 ml Other 250 ml 150 ml Output Urine Total 15 ml 15 ml Stool Total 0 ml # Bowel Movements 1 Dressing: saturated Cardiovascular: RSR Respiratory: decreased breath sounds Abdomen: soft, non-tender, present bowel sounds Extremities: no tenderness, no cyanosis Laboratory Tests Test 01/29/20 04:00 White Blood Count 28.7 K/UL (4.8-10.8) #*H Red Blood Count 2.26 M/UL (4.70-6.10) L Hemoglobin 6.9 G/DL (14.2-18.0) *L Hematocrit 21.3 % (42.0-52.0) L Mean Corpuscular Volume 94 FL (80-99) Mean Corpuscular Hemoglobin 30.6 PG (27.0-31.0) Mean Corpuscular Hemoglobin Concent 32.4 G/DL (32.0-36.0) Red Cell Distribution Width 15.3 % (11.6-14.8) H Platelet Count 99 K/UL (150-450) L Mean Platelet Volume 10.3 FL (6.5-10.1) H Neutrophils (%) (Auto) % (45.0-75.0) Lymphocytes (%) (Auto) % (20.0-45.0) Monocytes (%) (Auto) % (1.0-10.0) Eosinophils (%) (Auto) % (0.0-3.0) Basophils (%) (Auto) % (0.0-2.0) Differential Total Cells Counted 100 Neutrophils % (Manual) 90 % (45-75) H Lymphocytes % (Manual) 3 % (20-45) L Monocytes % (Manual) 4 % (1-10) Eosinophils % (Manual) 0 % (0-3) Basophils % (Manual) 0 % (0-2) Band Neutrophils 3 % (0-8) Platelet Estimate Decreased L Platelet Morphology Clumped Platelets 1+ Polychromasia 1+ Hypochromasia 1+ Anisocytosis 1+ Erythrocyte Sedimentation Rate 129 MM/HR (0-20) H Sodium Level 138 MMOL/L (136-145) Potassium Level 3.7 MMOL/L (3.5-5.1) Chloride Level 96 MMOL/L (98-107) L Carbon Dioxide Level 26 MMOL/L (21-32) Anion Gap 16 mmol/L (5-15) H Blood Urea Nitrogen 157 mg/dL (7-18) H Creatinine 5.0 MG/DL (0.55-1.30) H Estimat Glomerular Filtration Rate 11.2 mL/min (>60) Glucose Level 148 MG/DL (74-106) H Calcium Level 6.0 MG/DL (8.5-10.1) L Phosphorus Level 9.4 MG/DL (2.5-4.9) H Magnesium Level 2.0 MG/DL (1.8-2.4) Total Bilirubin 0.6 MG/DL (0.2-1.0) Aspartate Amino Transf (AST/SGOT) 64 U/L (15-37) H Alanine Aminotransferase (ALT/SGPT) 20 U/L (12-78) Alkaline Phosphatase 105 U/L (46-116) C-Reactive Protein, Quantitative 25.8 mg/dL (0.00-0.90) H Total Protein 5.1 G/DL (6.4-8.2) L Albumin 0.8 G/DL (3.4-5.0) L Globulin 4.3 g/dL Albumin/Globulin Ratio 0.2 (1.0-2.7) L Plan Problems: (1) Dehydration (2) Urinary tract infection (3) Ventilator dependent (4) Bilateral pleural effusion (5) Decubitus skin ulcer Assessment & Plan: Pt presented on admission with in grossly unkempt state, with Contractures and multiple Pressure injuries.Skin turgor is poor. Color is dusky. Generalized dry,scaly skin. Gastrostomy stoma is eroded and oozing moderate amt malodorous,Black,mud consistency exudate. Clusters of Unstageabloe Pressure injury Thoracic Spine. Base of wound has multiple small islands of slough with soft erythematous bridges giving wound appearance of multiple wounds. Area measuring (L)4cm x (W)3.6cm. In close proximity, to L of thoracic spine is a Partial thickness Pressure injury(L)5cm x (W)3.5cm. Base of wound is cade with macerated borders.Small amt sanguineous exudate noted. Resolving Full thickness 4 Pressure injury R Trochanter(L)0.7cm x (W)1.2cm, slight tunneled area at 11o'clock by 0.3cm. Surrounding pink epithelial bordered by hyperpigmentation. NO odor or exudate noted. Partial thickness shearing noted over Previously compromised skin (L)9cm x (W) 10.5cm. Base of wound is erythematous with multiple Scattered satellite lesions that are oozing sanguineous exudate. Unstageable Pressure injury distally, medial R Tibia(L)1.3cm x (W)1.1 cm . Base of wound is 100% yellow slough with marginal erythematous borders. No odor or exudate noted. Xerosis skin periwound. Pressure injury R Hallux. Base of wound is 40% dry eschar ,60% pink epithelial. No exudate noted. No erythema or fluctuance periwound. R Heel is boggy with non-blanchable erythema. Wound Plantar R foot(L)0.6cm x (W)0.8cm. 100% slough at base of wound . Marginal erythema along edges. Periwound is fluctuant and erythematous. At web space between R 1st and 2nd metatarsals is a Partial Thickness wound that is cade and oozing small amt sanguineous exudate. At Plantar aspect of R 3rd metatarsal noted to be oozing small amt Sanguineous exudate. Assessment of wound is not fully appreciated secondary to clubbing of metatarsals. Swabbed with Betadine and small gauze pressure drsg applied. Resolving Pressure Injury L Heel(L)6.5cm x (W)5cm. Base of wound is 90% pink epithelial, 10% dry eschar. NO odor or exudate noted . Scattered small dry,black scabs noted to R and L dorsal aspects feet ,including dorsal aspects of metatarsals both feet. Cleanse wounds Thoracic Spine with Saline. Apply TheraHoney. Apply Cavilon Skin Barrier Periwound. Cover with Optifoam drsg.Change every 3 days and prn. Apply Moisture Barrier Paste to Buttocks. Cover with Optifoam drsg. Change every 3 days and prn. Apply Betadine to wounds both feet. Cover with Abd pads and wrap each foot with Kerlix drsg. Wash GT site with Soap and Water and apply Loose Gauze drsg Daily and prn. Cleanse wound R trochanter with saline. Apply Therahoney,Apply Cavilon Periwound. Cover with Optifoam drsg. Change every 3 days and prn. Cleanse wounds L hip and L trochanter with Saline. Apply Therahoney. Apply Cavilon periwound .Cover with Optifoam drsg every 3 days and prn. Cleanse wounds L scapula with Saline. Apply TheraHoney. Apply Cavilon periwound.Cover with Optifoam drsg every 3 days and prn. Apply Triad paste to sacrum ,groin and scrotum with each Incontinence care. Cleanse wounds R and L foot with Saline. Apply TheraHoney. Cover wounds with Abd pads and wrap both feet with Kerlix gauze every 3 days and prn. Air Fluidized mattress. Reposition at least every 2hours or as tolerated. Place pillow between knees. Off-load heels with pillow. nutritional; optimization (6) funtional quadriplegia (7) Sepsis Assessment & Plan: labs reviewed on abx cxr noted unchanged wean as tolerated tf anticoag lira will monitor worsening drainage around trach possible fistula vs abscess CT pending (8) Chronic respiratory failure (9) Pneumonia (10) Acute on chronic respiratory failure Assessment & Plan: Bilateral interstitial opacities, left basilar pleural fluid and/or consolidation, left lung volume loss appear unchanged. Tracheostomy remains. 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 2) Swallowing difficulty r/t respiratory failure as evidenced by pt is trach/ vent dep and GT dependent. CURRENT TF:NPO ENTERAL NUTRITION RECOMMENDATIONS: Nepro @ 45ml/hr x 24 hrs to provide 1080ml, 1944kcal, 87g prot, 785ml free water FEED W/ HEMODYNAMIC STABILITY -> Rec Nepro at this time due to ARF, K consistently elev, now 6.2* -> Initiate Nepro @ 15ml/hr x 6hrs, advance 10ml q 4-6 hrs as tolerated to goal rate -> HOB over 30 degrees/ water flush per MD Without hemodynamic stability, rec trophic feeding of Nepro @ 5ml/hr x 24hrs ADDITIONAL RECOMMENDATIONS: * PER SNF: HT=72 inches, XB=425bly (01/08) vs EMR HT= 65" inches and CU=271arg -> RECALIBRATE BEDSCALE * Monitor renal fxn and lytes, need for continued rec for Nepro * Monitor HD stability: NE @ 6mcg * Wound healing: add vit C 500mg BID, Edmond BID w/ TF order * Consider accuchecks for close BG monitoring for hypoglycemia -> cont D5 while pt NPO (13) Protein-calorie malnutrition, severe (14) At high risk for aspiration (15) ATN (acute tubular necrosis) (16) Severe anemia (17) Encephalopathy acute Stanislav Avelar Jan 29, 2020 12:30
--- NOTE | 2020-01-29 15:22 | Cardiology Progress Note ---
Assessment/Plan Assessment/Plan septic shock, the patient is cachectic and bedridden, prognosis is very poor, no primary cardiac issues Subjective Subjective The patient is on vent, unresponsive Objective Last 24 Hour Vital Signs Date Time Temp Pulse Resp B/P (MAP) Pulse Ox O2 Delivery O2 Flow Rate FiO2 01/29/20 14:00 116 23 100/58 (72) 97 01/29/20 13:54 126 82/60 01/29/20 13:41 89/71 01/29/20 13:30 116 22 99/66 (77) 95 01/29/20 13:00 112 22 93/50 (64) 96 01/29/20 12:30 114 22 106/71 (83) 99 01/29/20 12:00 Mechanical Ventilator 01/29/20 12:00 30 01/29/20 12:00 108/64 01/29/20 12:00 97.6 114 22 108/64 (79) 97 01/29/20 11:30 117 24 96/76 (83) 98 01/29/20 11:00 92/64 01/29/20 11:00 117 24 92/64 (73) 98 01/29/20 10:42 111 25 30 01/29/20 10:30 111 24 100/67 (78) 97 01/29/20 10:00 89/61 01/29/20 10:00 118 25 89/61 (70) 100 01/29/20 09:30 110 24 106/57 (73) 96 01/29/20 09:00 108/71 01/29/20 09:00 113 24 108/71 (83) 97 01/29/20 08:30 114 24 102/67 (79) 97 01/29/20 08:00 30 01/29/20 08:00 107/71 01/29/20 08:00 98.5 114 24 107/71 (83) 97 01/29/20 08:00 Mechanical Ventilator 01/29/20 07:41 123 92/62 01/29/20 07:00 114 25 114/91 (99) 97 01/29/20 07:00 114/91 01/29/20 06:56 108 25 30 01/29/20 06:30 113 25 01/29/20 06:30 113 25 104/68 (80) 96 01/29/20 06:00 117/84 01/29/20 06:00 114 25 117/84 (95) 95 01/29/20 05:45 115 24 112/73 (86) 95 01/29/20 05:37 116 25 101/62 (75) 95 01/29/20 05:30 114 24 70/52 (58) 94 01/29/20 05:00 115/74 01/29/20 05:00 122 25 115/74 (88) 93 01/29/20 04:30 118 24 115/53 (73) 95 01/29/20 04:00 119/63 01/29/20 04:00 30 01/29/20 04:00 Mechanical Ventilator 01/29/20 04:00 115 01/29/20 04:00 98.8 115 24 119/63 (81) 94 01/29/20 03:30 118 28 103/75 (84) 94 01/29/20 03:16 115 26 30 01/29/20 03:08 106/53 01/29/20 03:00 124 27 106/53 (70) 94 01/29/20 02:30 119 26 107/51 (69) 95 01/29/20 02:15 87/52 01/29/20 02:04 115 110/51 01/29/20 02:00 120 24 90/55 (67) 95 01/29/20 02:00 90/55 01/29/20 01:30 120 26 103/59 (74) 95 01/29/20 01:15 126 26 98/58 (71) 95 01/29/20 01:00 108/73 01/29/20 01:00 120 26 108/73 (85) 96 01/29/20 00:45 104 23 92/57 (69) 97 01/29/20 00:30 101 26 89/51 (64) 97 01/29/20 00:30 89/51 01/29/20 00:29 103 26 93/45 (61) 97 01/29/20 00:22 105 25 80/41 (54) 97 01/29/20 00:15 103 24 88/59 (69) 98 01/29/20 00:15 88/59 01/29/20 00:00 103 01/29/20 00:00 30 01/29/20 00:00 97.8 103 25 98/59 (72) 97 7/26/20 00:00 98/59 01/29/20 00:00 Mechanical Ventilator 01/28/20 23:30 101 24 100/56 (71) 99 01/28/20 23:00 102 20 30 01/28/20 23:00 103/71 7 23:00 100 24 103/71 (82) 100 20 22:30 103 25 90/54 (66) 97 01/28/20 22:00 95/50 01/28/20 22:00 100 23 95/50 (65) 97 20 21:45 122 24 116/56 (76) 96 01/28/20 21:30 118 25 112/48 (69) 96 01/28/20 21:00 100/55 01/28/20 21:00 119 24 100/55 (70) 96 01/28/20 20:30 118 24 93/59 (70) 96 01/28/20 20:24 129 01/28/20 20:00 Mechanical Ventilator 01/28/20 20:00 30 01/28/20 20:00 97.8 121 25 122/77 (92) 96 01/28/20 20:00 122/77 01/28/20 19:30 123 26 111/64 (80) 96 01/28/20 19:07 128 25 30 01/28/20 19:00 120 24 135/69 (91) 97 01/28/20 19:00 126/62 01/28/20 18:48 123 100/66 01/28/20 18:47 100/66 01/28/20 18:03 98.0 01/28/20 18:00 98.0 120 26 114/70 (85) 96 01/28/20 18:00 112/61 01/28/20 17:00 102/58 01/28/20 17:00 123 26 100/66 (77) 96 01/28/20 16:00 30 01/28/20 16:00 127 01/28/20 16:00 116/69 01/28/20 16:00 Mechanical Ventilator 01/28/20 16:00 100.0 121 25 116/69 (85) 100 01/28/20 15:59 126 25 30 General Appearance: other - looks very ill, cachectic EENT: other Neck: other Rhythm: ST Cardiovascular: regularly irregular, systolic murmur Respiratory/Chest: expiratory wheezing Extremities: other - contracted Intake and Output 01/28/20 01/29/20 19:00 07:00 Intake Total 2727.49 ml 2548.00 ml Output Total 15 ml 15 ml Balance 2712.49 ml 2533.00 ml IV Total 2477.49 ml 2398.00 ml Other 250 ml 150 ml Output Urine Total 15 ml 15 ml Stool Total 0 ml # Bowel Movements 1 Laboratory Tests Test 01/29/20 04:00 White Blood Count 28.7 K/UL (4.8-10.8) #*H Red Blood Count 2.26 M/UL (4.70-6.10) L Hemoglobin 6.9 G/DL (14.2-18.0) *L Hematocrit 21.3 % (42.0-52.0) L Mean Corpuscular Volume 94 FL (80-99) Mean Corpuscular Hemoglobin 30.6 PG (27.0-31.0) Mean Corpuscular Hemoglobin Concent 32.4 G/DL (32.0-36.0) Red Cell Distribution Width 15.3 % (11.6-14.8) H Platelet Count 99 K/UL (150-450) L Mean Platelet Volume 10.3 FL (6.5-10.1) H Neutrophils (%) (Auto) % (45.0-75.0) Lymphocytes (%) (Auto) % (20.0-45.0) Monocytes (%) (Auto) % (1.0-10.0) Eosinophils (%) (Auto) % (0.0-3.0) Basophils (%) (Auto) % (0.0-2.0) Differential Total Cells Counted 100 Neutrophils % (Manual) 90 % (45-75) H Lymphocytes % (Manual) 3 % (20-45) L Monocytes % (Manual) 4 % (1-10) Eosinophils % (Manual) 0 % (0-3) Basophils % (Manual) 0 % (0-2) Band Neutrophils 3 % (0-8) Platelet Estimate Decreased L Platelet Morphology Clumped Platelets 1+ Polychromasia 1+ Hypochromasia 1+ Anisocytosis 1+ Erythrocyte Sedimentation Rate 129 MM/HR (0-20) H Sodium Level 138 MMOL/L (136-145) Potassium Level 3.7 MMOL/L (3.5-5.1) Chloride Level 96 MMOL/L (98-107) L Carbon Dioxide Level 26 MMOL/L (21-32) Anion Gap 16 mmol/L (5-15) H Blood Urea Nitrogen 157 mg/dL (7-18) H Creatinine 5.0 MG/DL (0.55-1.30) H Estimat Glomerular Filtration Rate 11.2 mL/min (>60) Glucose Level 148 MG/DL (74-106) H Calcium Level 6.0 MG/DL (8.5-10.1) L Phosphorus Level 9.4 MG/DL (2.5-4.9) H Magnesium Level 2.0 MG/DL (1.8-2.4) Total Bilirubin 0.6 MG/DL (0.2-1.0) Aspartate Amino Transf (AST/SGOT) 64 U/L (15-37) H Alanine Aminotransferase (ALT/SGPT) 20 U/L (12-78) Alkaline Phosphatase 105 U/L (46-116) C-Reactive Protein, Quantitative 25.8 mg/dL (0.00-0.90) H Total Protein 5.1 G/DL (6.4-8.2) L Albumin 0.8 G/DL (3.4-5.0) L Globulin 4.3 g/dL Albumin/Globulin Ratio 0.2 (1.0-2.7) L Microbiology Date/Time Source Procedure Growth Status 01/26/20 16:30 Blood Blood Culture - Preliminary NO GROWTH AFTER 48 HOURS Resulted 01/26/20 16:20 Blood Blood Culture - Preliminary NO GROWTH AFTER 48 HOURS Resulted 01/28/20 03:00 Body Fluid Gram Stain - Final Resulted 01/28/20 03:00 Body Fluid Body Fluid Culture Pending Resulted Jessica Baez MD Jan 29, 2020 15:22
--- NOTE | 2020-01-29 16:07 | Internal Med Progress Note ---
Subjective Date of Service: Jan 29, 2020 Physician Name Morocho,Bunny Attending Physician Danis Wolfe MD Current Medications Medications (Trade) Dose Ordered Sig/Margarette Route PRN Reason Start Time Stop Time Status Last Admin Dose Admin Acetaminophen (Tylenol) 650 mg Q4H PRN GT Temp >100.5 01/28/20 21:30 02/27/20 21:29 Allopurinol (allopurinoL) 300 mg DAILY GT 01/27/20 09:00 02/26/20 08:59 01/28/20 09:38 Aluminum Hydroxide (Amphojel) 1,920 mg Q6H GT 01/29/20 10:00 02/28/20 09:59 Chlorhexidine Gluconate (Flaca-Hex 2%) 1 applic DAILY@2000 TOPIC 01/26/20 20:00 04/25/20 19:59 01/28/20 20:05 Daptomycin 400 mg/ Sodium Chloride 55 ml @ 100 mls/hr Q48H IV 01/25/20 12:00 02/01/20 11:59 01/29/20 11:58 Heparin Sodium (Porcine) (Heparin 5000 units/ml) 5,000 units EVERY 12 HOURS SUBQ 01/22/20 21:00 03/07/20 20:59 01/24/20 20:56 Meropenem 500 mg/ Sodium Chloride 55 ml @ 110 mls/hr Q12H IVPB 01/22/20 14:00 01/31/20 23:59 01/29/20 13:40 Midodrine (Pro-Amatine) 10 mg Q8HR GT 01/24/20 14:00 04/23/20 13:59 01/29/20 05:48 Norepinephrine Bitartrate 16 mg/ Dextrose 500 ml @ 0 mls/hr Q24H IV 01/27/20 09:00 02/26/20 08:59 01/29/20 13:41 Ondansetron HCl (Zofran) 4 mg Q6H PRN IVP Nausea & Vomiting 01/22/20 08:15 02/21/20 08:14 Pantoprazole (Protonix) 40 mg Q12HR IV 01/22/20 09:30 02/21/20 09:29 01/29/20 09:13 Phenylephrine HCl 50 mg/Dextrose 250 ml @ 0 mls/hr Q24H IV 01/27/20 07:03 02/26/20 07:02 01/29/20 13:54 Polyethylene Glycol (Miralax) 17 gm DAILYPRN PRN ORAL Constipation 01/22/20 08:15 02/21/20 08:14 Sodium Bicarbonate 100 ml/Dextrose/ Sodium Chloride 1,100 ml @ 100 mls/hr Q11H IV 01/25/20 09:00 02/24/20 08:59 01/29/20 11:59 Sodium Citrate (Bicitra) 30 ml EVERY 6 HOURS GT 01/24/20 18:00 02/23/20 17:59 01/29/20 05:47 Tranexamic Acid 500 mg/Sodium Chloride 60 ml @ 120 mls/hr ONCE ONCE IVPB 01/29/20 17:00 01/29/20 17:29 Allergies: Coded Allergies: NSAIDS (NON-STEROIDAL ANTI-INFLAMMA (Unverified Allergy, Unknown, 11/27/18) PIPERACILLIN (Unverified Allergy, Unknown, 01/25/19) tolerates carbapenem TAZOBACTAM (Unverified Allergy, Unknown, 11/27/18) Uncoded Allergies: NSAID (Allergy, Unknown, 09/14/18) ROS Limited/Unobtainable: Yes Subjective 84 YO M admitted with respiratory failure. Now pneumonia and hypotension. intubated and sedated. Cover for Int Yonis-DR Wolfe. ICU. Continues on pressors Objective Last Vital Signs Date Time Temp Pulse Resp B/P (MAP) Pulse Ox O2 Delivery O2 Flow Rate FiO2 01/29/20 15:40 115 20 30 01/29/20 15:00 100/68 01/29/20 15:00 99 01/29/20 12:00 Mechanical Ventilator 01/29/20 12:00 97.6 01/25/20 07:00 30.0 Laboratory Tests Test 01/29/20 04:00 White Blood Count 28.7 K/UL (4.8-10.8) #*H Red Blood Count 2.26 M/UL (4.70-6.10) L Hemoglobin 6.9 G/DL (14.2-18.0) *L Hematocrit 21.3 % (42.0-52.0) L Mean Corpuscular Volume 94 FL (80-99) Mean Corpuscular Hemoglobin 30.6 PG (27.0-31.0) Mean Corpuscular Hemoglobin Concent 32.4 G/DL (32.0-36.0) Red Cell Distribution Width 15.3 % (11.6-14.8) H Platelet Count 99 K/UL (150-450) L Mean Platelet Volume 10.3 FL (6.5-10.1) H Neutrophils (%) (Auto) % (45.0-75.0) Lymphocytes (%) (Auto) % (20.0-45.0) Monocytes (%) (Auto) % (1.0-10.0) Eosinophils (%) (Auto) % (0.0-3.0) Basophils (%) (Auto) % (0.0-2.0) Differential Total Cells Counted 100 Neutrophils % (Manual) 90 % (45-75) H Lymphocytes % (Manual) 3 % (20-45) L Monocytes % (Manual) 4 % (1-10) Eosinophils % (Manual) 0 % (0-3) Basophils % (Manual) 0 % (0-2) Band Neutrophils 3 % (0-8) Platelet Estimate Decreased L Platelet Morphology Clumped Platelets 1+ Polychromasia 1+ Hypochromasia 1+ Anisocytosis 1+ Erythrocyte Sedimentation Rate 129 MM/HR (0-20) H Sodium Level 138 MMOL/L (136-145) Potassium Level 3.7 MMOL/L (3.5-5.1) Chloride Level 96 MMOL/L (98-107) L Carbon Dioxide Level 26 MMOL/L (21-32) Anion Gap 16 mmol/L (5-15) H Blood Urea Nitrogen 157 mg/dL (7-18) H Creatinine 5.0 MG/DL (0.55-1.30) H Estimat Glomerular Filtration Rate 11.2 mL/min (>60) Glucose Level 148 MG/DL (74-106) H Calcium Level 6.0 MG/DL (8.5-10.1) L Phosphorus Level 9.4 MG/DL (2.5-4.9) H Magnesium Level 2.0 MG/DL (1.8-2.4) Total Bilirubin 0.6 MG/DL (0.2-1.0) Aspartate Amino Transf (AST/SGOT) 64 U/L (15-37) H Alanine Aminotransferase (ALT/SGPT) 20 U/L (12-78) Alkaline Phosphatase 105 U/L (46-116) C-Reactive Protein, Quantitative 25.8 mg/dL (0.00-0.90) H Total Protein 5.1 G/DL (6.4-8.2) L Albumin 0.8 G/DL (3.4-5.0) L Globulin 4.3 g/dL Albumin/Globulin Ratio 0.2 (1.0-2.7) L Microbiology Date/Time Source Procedure Growth Status 01/26/20 16:30 Blood Blood Culture - Preliminary NO GROWTH AFTER 48 HOURS Resulted 01/26/20 16:20 Blood Blood Culture - Preliminary NO GROWTH AFTER 48 HOURS Resulted 01/28/20 03:00 Body Fluid Gram Stain - Final Resulted 01/28/20 03:00 Body Fluid Body Fluid Culture Pending Resulted Intake and Output 01/28/20 01/29/20 19:00 07:00 Intake Total 2727.49 ml 2548.00 ml Output Total 15 ml 15 ml Balance 2712.49 ml 2533.00 ml IV Total 2477.49 ml 2398.00 ml Other 250 ml 150 ml Output Urine Total 15 ml 15 ml Stool Total 0 ml # Bowel Movements 1 Objective PHYSICAL EXAMINATION: GENERAL: The patient is contracted, thin-appearing male, in no apparent distress. HEENT: Eyes, pupils are equal and responsive to light and accommodation. Extraocular movements are intact. NECK: Supple without lymphadenopathy. There is trachea midline noted. There is no erythema about the trachea. CHEST: Mech vent; Decreased breath sounds at bilateral bases with expiratory wheezes, otherwise without rales. CARDIOVASCULAR EXAM: Tachycardic, regular rate. S1, S2 normal without murmurs, rubs, or gallops. ABDOMEN: Soft, nontender, and nondistended. Positive bowel sounds. No evidence of hepatosplenomegaly. Currently, no rebound or guarding noted. EXTREMITIES: Negative for clubbing, cyanosis, or edema. RECTAL/GENITAL: Not performed. NEUROLOGIC: Unable to assess. Assessment/Plan Assessment/Plan ASSESSMENT: This is an 84-year-old male. 1. Hypoxemic respiratory failure. 2. Pneumonia=proteus mirabilis 3. Dysphagia. 4. Functional quadriplegia. 5. Alzheimer's dementia. 6. Mzyrb-xp-wsigkwb renal failure. 7. Sepsis=citrobacter 8. Hyperkalemia TREATMENT: 1. Hypoxemic respiratory failure/pneumonia. A Pulmonary consultation has been obtained with Dr. Dennis Woodall. The patient is currently intubated in the intensive care unit. 2. Antibiotics= meropenem and Daptomycin. ID=Dr Dorantes. A rapid COVID-19 test was reported as negative. 2. History of dysphagia. The patient is status post PEG placement. 3. Functional quadriplegia. 4. Alzheimer's dementia. 5. Mtlve-ui-octmetp renal failure/hyperkalemia A Nephrology consultation has been obtained with Dr. Ronnie Guevara. Continue kayexalate 6. Transfer to [facility] when medically stable Bunny Morocho MD Jan 29, 2020 16:07
[2020-01-29] MEDS ORDERED: Tranexamic Acid 500 MG in NS 55 ML IVPB ONE (17:00)
--- NOTE | 2020-01-29 19:54 | Pulmonolgy Critical Care Note ---
Critical Care - Asmt/Plan Problems: (1) Encephalopathy acute (2) Multiple organ failure (3) Acute on chronic respiratory failure (4) Sepsis (5) FRIDA (acute kidney injury) (6) Thrombocytopenia (7) Dehydration (8) Feeding by G-tube (9) Protein-calorie malnutrition, severe (10) Chronic respiratory failure (11) funtional quadriplegia (12) Ventilator dependent Respiratory: monitor respiratory rate, adjust FIO2, CXR Cardiac: continue to monitor HR/BP Renal: F/U I&O, keep IV fluid Infectious Disease: check cultures Gastrointestinal: continue feedings/current rate Endocrine: monitor blood sugar, check TSH, continue sliding scale insulin Hematologic: transfuse if hgb<8.5 Neurologic: PRN Ativan, PRN Morphine, keep patient comfortable Affect: PRN ativan Prophylaxis: Protonix, Heparin Disposition: keep in ICU Time Spent (Minutes): 40 Notes Reviewed: social sciences lecturer, cardio, renal Discussed with: nurses, consultants, embedded case managerclinical data management manager - Objective Last 24 Hour Vital Signs Date Time Temp Pulse Resp B/P (MAP) Pulse Ox O2 Delivery O2 Flow Rate FiO2 01/29/20 19:48 106 18 30 01/29/20 19:00 110 21 95/62 (73) 99 01/29/20 18:30 114 21 91/57 (68) 99 01/29/20 18:18 112 94/59 01/29/20 18:00 116 20 90/61 (71) 99 01/29/20 17:30 112 21 90/50 (63) 98 01/29/20 17:00 112 22 89/58 (68) 98 01/29/20 16:30 114 20 101/62 (75) 99 01/29/20 16:00 114 01/29/20 16:00 98.0 116 21 110/81 (91) 97 01/29/20 16:00 Mechanical Ventilator 01/29/20 16:00 30 01/29/20 15:40 115 20 30 01/29/20 15:30 114 22 96/68 (77) 95 01/29/20 15:00 100/68 01/29/20 15:00 115 23 100/68 (79) 99 01/29/20 14:00 116 23 100/58 (72) 97 01/29/20 14:00 100/58 01/29/20 13:54 126 82/60 7/26/20 13:41 89/71 01/29/20 13:30 116 22 99/66 (77) 95 01/29/20 13:00 112 22 93/50 (64) 96 01/29/20 13:00 93/50 01/29/20 12:30 114 22 106/71 (83) 99 01/29/20 12:00 113 01/29/20 12:00 Mechanical Ventilator 01/29/20 12:00 30 01/29/20 12:00 108/64 01/29/20 12:00 97.6 114 22 108/64 (79) 97 01/29/20 11:30 117 24 96/76 (83) 98 01/29/20 11:00 92/64 01/29/20 11:00 117 24 92/64 (73) 98 01/29/20 10:42 111 25 30 01/29/20 10:30 111 24 100/67 (78) 97 01/29/20 10:00 89/61 01/29/20 10:00 118 25 89/61 (70) 100 01/29/20 09:30 110 24 106/57 (73) 96 01/29/20 09:00 108/71 01/29/20 09:00 113 24 108/71 (83) 97 01/29/20 08:30 114 24 102/67 (79) 97 01/29/20 08:00 30 01/29/20 08:00 107/71 01/29/20 08:00 98.5 114 24 107/71 (83) 97 01/29/20 08:00 Mechanical Ventilator 01/29/20 08:00 105 01/29/20 07:41 123 92/62 01/29/20 07:00 114 25 114/91 (99) 97 01/29/20 07:00 114/91 01/29/20 06:56 108 25 30 01/29/20 06:30 113 25 01/29/20 06:30 113 25 104/68 (80) 96 01/29/20 06:00 117/84 01/29/20 06:00 114 25 117/84 (95) 95 01/29/20 05:45 115 24 112/73 (86) 95 01/29/20 05:37 116 25 101/62 (75) 95 01/29/20 05:30 114 24 70/52 (58) 94 01/29/20 05:00 115/74 01/29/20 05:00 122 25 115/74 (88) 93 01/29/20 04:30 118 24 115/53 (73) 95 01/29/20 04:00 119/63 01/29/20 04:00 30 01/29/20 04:00 Mechanical Ventilator 01/29/20 04:00 115 01/29/20 04:00 98.8 115 24 119/63 (81) 94 01/29/20 03:30 118 28 103/75 (84) 94 01/29/20 03:16 115 26 30 01/29/20 03:08 106/53 01/29/20 03:00 124 27 106/53 (70) 94 01/29/20 02:30 119 26 107/51 (69) 95 01/29/20 02:15 87/52 01/29/20 02:04 115 110/51 01/29/20 02:00 120 24 90/55 (67) 95 01/29/20 02:00 90/55 01/29/20 01:30 120 26 103/59 (74) 95 01/29/20 01:15 126 26 98/58 (71) 95 01/29/20 01:00 108/73 01/29/20 01:00 120 26 108/73 (85) 96 01/29/20 00:45 104 23 92/57 (69) 97 01/29/20 00:30 101 26 89/51 (64) 97 01/29/20 00:30 89/51 01/29/20 00:29 103 26 93/45 (61) 97 01/29/20 00:22 105 25 80/41 (54) 97 01/29/20 00:15 103 24 88/59 (69) 98 01/29/20 00:15 88/59 01/29/20 00:00 103 01/29/20 00:00 30 01/29/20 00:00 97.8 103 25 98/59 (72) 97 01/29/20 00:00 98/59 01/29/20 00:00 Mechanical Ventilator 01/28/20 23:30 101 24 100/56 (71) 99 01/28/20 23:00 102 20 30 01/28/20 23:00 103/71 01/28/20 23:00 100 24 103/71 (82) 100 01/28/20 22:30 103 25 90/54 (66) 97 01/28/20 22:00 95/50 01/28/20 22:00 100 23 95/50 (65) 97 01/28/20 21:45 122 24 116/56 (76) 96 01/28/20 21:30 118 25 112/48 (69) 96 01/28/20 21:00 100/55 01/28/20 21:00 119 24 100/55 (70) 96 01/28/20 20:30 118 24 93/59 (70) 96 01/28/20 20:24 129 01/28/20 20:00 Mechanical Ventilator 01/28/20 20:00 30 01/28/20 20:00 97.8 121 25 122/77 (92) 96 01/28/20 20:00 122/77 Status: obtunded Condition: critical HEENT: atraumatic, normocephalic Neck: full ROM Lungs: rales, rhonchi Heart: HR/BP stable, regular Abdomen: non-tender, active bowel sounds Extremities: no C/C/E Micro: Microbiology Date/Time Source Procedure Growth Status 01/28/20 03:00 Body Fluid Gram Stain - Final Resulted 01/28/20 03:00 Body Fluid Body Fluid Culture Pending Resulted Critical Care - Subjective Condition: critical, grave FI02: 30 Vent Support Breath Rate: 16 Vent Support Mode: AC Vent Tidal Volume: 500 Sputum Amount: Scant PEEP: 5.0 PIP: 48 I&O: Intake and Output 01/28/20 01/29/20 19:00 07:00 Intake Total 2727.49 ml 2548.00 ml Output Total 15 ml 15 ml Balance 2712.49 ml 2533.00 ml IV Total 2477.49 ml 2398.00 ml Other 250 ml 150 ml Output Urine Total 15 ml 15 ml Stool Total 0 ml # Bowel Movements 1 Dennis Woodall MD Jan 29, 2020 19:54
[2020-01-29] MEDS: Dyna-Hex 2% Top Sol 2oz TOPIC SCH (20:42)
[2020-01-30] VITALS (72 sets, daily range): BP systolic 32–99; BP diastolic 12–80
[2020-01-30] MEDS: Meropenem 500 MG in NS 55 ML IVPB SCH ×2 (02:26→15:00)
[2020-01-30] MEDS: Phenylephrine 50 MG in D5W 245 ML IV SCH ×3 (03:16→13:01)
[2020-01-30] MEDS: Aluminum Hydroxide Gel Susp 15ml GT SCH ×4 (04:00→22:01)
[2020-01-30 05:03] LABS: HEMATOCRIT 22.1 % (42.0-52.0); MEAN CORPUSCULAR VOLUME 93 FL (80-99); PLATELET COUNT 42 K/UL (150-450); RED BLOOD COUNT 2.37 M/UL (4.70-6.10); RED CELL DISTRIBUTION WIDTH 17.2 % (11.6-14.8)
[2020-01-30 05:21] LABS: HEMOGLOBIN 6.9 G/DL (14.2-18.0)
[2020-01-30 05:31] LABS: ALANINE AMINOTRANSFERASE 238 U/L (12-78); ALBUMIN 0.6 G/DL (3.4-5.0); ALBUMIN/GLOBULIN RATIO 0.1 (1.0-2.7); ALKALINE PHOSPHATASE 154 U/L (46-116); ANION GAP 19 mmol/L (5-15); ASPARTATE AMINO TRANSFERASE 1374 U/L (15-37); BILIRUBIN,TOTAL 1.1 MG/DL (0.2-1.0); BLOOD UREA NITROGEN 151 mg/dL (7-18); CALCIUM 6.3 MG/DL (8.5-10.1); CARBON DIOXIDE 22 MMOL/L (21-32); CHLORIDE 92 MMOL/L (98-107); CREATININE 5.2 MG/DL (0.55-1.30); PHOSPHORUS 12.1 MG/DL (2.5-4.9); SODIUM 133 MMOL/L (136-145)
[2020-01-30 05:34] LABS: BILIRUBIN,DIRECT 0.7 MG/DL (0.0-0.3)
[2020-01-30 05:39] LABS: INR 1.7 (0.9-1.1)
[2020-01-30] MEDS: Midodrine 10mg tab GT SCH ×3 (05:52→22:01)
[2020-01-30] MEDS: Sodium Citrate 30ml GT SCH ×4 (05:52→17:26)
--- NOTE | 2020-01-30 06:52 | General Progress Note ---
Assessment/Plan Problem List: (1) Severe anemia ICD Codes: D64.9 - Anemia, unspecified SNOMED: 071399109 (2) Encephalopathy acute ICD Codes: G93.40 - Encephalopathy, unspecified SNOMED: 66906829, 143358458 (3) ATN (acute tubular necrosis) ICD Codes: N17.0 - Acute kidney failure with tubular necrosis SNOMED: 29816506 (4) Feeding by G-tube ICD Codes: Z93.1 - Gastrostomy status SNOMED: 002586552, 587753713, 154791917 (5) Pneumonia ICD Codes: J18.9 - Pneumonia, unspecified organism SNOMED: 321159536 (6) Chronic respiratory failure ICD Codes: J96.10 - Chronic respiratory failure, unspecified whether with hypoxia or hypercapnia SNOMED: 69789757 Assessment/Plan: now on pressors persistent bleed and leakage around the trach fu H&H prn blood transfusion>>one unit for today abx per ID respiratory care icu care d/w surg, will hold GTF for now>> but still lots of secretion around the trach CT of the neck and chest, when patient is more stable poor prognosis will fu Subjective ROS Limited/Unobtainable: No Allergies: Coded Allergies: NSAIDS (NON-STEROIDAL ANTI-INFLAMMA (Unverified Allergy, Unknown, 11/27/18) PIPERACILLIN (Unverified Allergy, Unknown, 01/25/19) tolerates carbapenem TAZOBACTAM (Unverified Allergy, Unknown, 11/27/18) Uncoded Allergies: NSAID (Allergy, Unknown, 09/14/18) Objective Last 24 Hour Vital Signs Date Time Temp Pulse Resp B/P (MAP) Pulse Ox O2 Delivery O2 Flow Rate FiO2 01/30/20 06:30 88 19 78/50 (59) 94 01/30/20 06:00 89 20 84/60 (68) 93 01/30/20 06:00 89 25 01/30/20 06:00 89 20 78/50 (59) 75 01/30/20 05:30 89 20 87/50 (62) 75 01/30/20 05:00 92 19 90/48 (62) 94 01/30/20 05:00 90/55 01/30/20 05:00 92 19 90/48 (62) 94 01/30/20 04:30 93 20 86/52 (63) 94 01/30/20 04:30 93 20 86/52 (63) 94 01/30/20 04:00 99.2 92 20 83/52 (62) 93 01/30/20 04:00 98.4 92 20 83/52 (62) 93 01/30/20 04:00 30 01/30/20 04:00 96 01/30/20 04:00 86/49 01/30/20 04:00 Mechanical Ventilator 01/30/20 03:30 96 21 88/49 (62) 96 01/30/20 03:30 96 21 88/49 (62) 96 01/30/20 03:16 94 86/49 01/30/20 03:16 98 19 30 01/30/20 03:10 99 20 86/49 (61) 94 01/30/20 03:00 101 19 91/48 (62) 94 01/30/20 03:00 89/52 01/30/20 03:00 101 19 91/48 (62) 94 01/30/20 02:30 104 19 99/51 (67) 96 01/30/20 02:26 89/45 01/30/20 02:15 98 20 91/60 (70) 95 01/30/20 02:00 95 19 89/56 (67) 93 01/30/20 02:00 91/48 01/30/20 01:45 103 19 86/51 (63) 01/30/20 01:30 108 20 92/51 (65) 95 01/30/20 01:15 110 20 86/50 (62) 94 01/30/20 01:00 106 20 93/49 (64) 94 01/30/20 01:00 88/46 01/30/20 00:45 107 22 84/80 (81) 94 01/30/20 00:30 107 21 90/51 (64) 93 01/30/20 00:15 106 21 92/56 (68) 94 01/30/20 00:00 98.8 102 21 88/54 (65) 93 01/30/20 00:00 Mechanical Ventilator 01/30/20 00:00 91/57 01/29/20 23:45 107 21 80/45 (57) 94 01/29/20 23:30 106 21 88/46 (60) 94 01/29/20 23:25 99 20 30 01/29/20 23:15 111 21 89/50 (63) 94 01/29/20 23:00 105 20 85/49 (61) 94 01/29/20 23:00 85/61 01/29/20 22:54 113 80/65 01/29/20 22:45 105 21 80/46 (57) 94 01/29/20 22:30 107 21 84/50 (61) 94 01/29/20 22:21 82/56 01/29/20 22:15 107 20 88/45 (59) 94 01/29/20 22:00 104 20 90/45 (60) 95 01/29/20 22:00 80/51 01/29/20 21:45 107 20 87/45 (59) 95 01/29/20 21:30 105 20 78/46 (57) 94 01/29/20 21:15 95 34 58/41 (47) 94 01/29/20 21:00 109 21 85/65 (72) 94 01/29/20 21:00 84/64 01/29/20 20:45 108 24 94/54 (67) 93 01/29/20 20:30 109 21 95/64 (74) 95 01/29/20 20:15 110 21 84/50 (61) 92 01/29/20 20:00 Mechanical Ventilator 01/29/20 20:00 109 01/29/20 20:00 30 01/29/20 20:00 60/30 01/29/20 20:00 97.8 108 22 94/59 (71) 92 01/29/20 19:48 106 18 30 01/29/20 19:45 110 22 85/54 (64) 95 01/29/20 19:30 108 21 96/60 (72) 93 01/29/20 19:15 113 21 86/50 (62) 95 01/29/20 19:00 110 21 95/62 (73) 99 01/29/20 19:00 95/62 01/29/20 19:00 110 21 95/62 (73) 87 01/29/20 18:30 114 21 91/57 (68) 99 01/29/20 18:18 112 94/59 01/29/20 18:00 116 20 90/61 (71) 99 01/29/20 18:00 90/61 01/29/20 17:30 112 21 90/50 (63) 98 01/29/20 17:00 112 22 89/58 (68) 98 01/29/20 17:00 89/58 01/29/20 16:30 114 20 101/62 (75) 99 01/29/20 16:00 114 01/29/20 16:00 98.0 116 21 110/81 (91) 97 01/29/20 16:00 Mechanical Ventilator 01/29/20 16:00 30 01/29/20 16:00 110/81 01/29/20 15:40 115 20 30 01/29/20 15:30 114 22 96/68 (77) 95 01/29/20 15:00 100/68 01/29/20 15:00 115 23 100/68 (79) 99 01/29/20 14:30 118 22 110/58 (75) 93 01/29/20 14:00 116 23 100/58 (72) 97 01/29/20 14:00 100/58 01/29/20 13:54 126 82/60 01/29/20 13:41 89/71 01/29/20 13:30 116 22 99/66 (77) 95 01/29/20 13:00 112 22 93/50 (64) 96 01/29/20 13:00 93/50 01/29/20 12:30 114 22 106/71 (83) 99 01/29/20 12:00 113 01/29/20 12:00 Mechanical Ventilator 01/29/20 12:00 30 01/29/20 12:00 108/64 01/29/20 12:00 97.6 114 22 108/64 (79) 97 01/29/20 11:30 117 24 96/76 (83) 98 01/29/20 11:00 92/64 01/29/20 11:00 117 24 92/64 (73) 98 01/29/20 10:42 111 25 30 01/29/20 10:30 111 24 100/67 (78) 97 01/29/20 10:00 89/61 01/29/20 10:00 118 25 89/61 (70) 100 01/29/20 09:30 110 24 106/57 (73) 96 01/29/20 09:00 108/71 7/26/20 09:00 113 24 108/71 (83) 97 01/29/20 08:30 114 24 102/67 (79) 97 01/29/20 08:00 30 01/29/20 08:00 107/71 01/29/20 08:00 98.5 114 24 107/71 (83) 97 01/29/20 08:00 Mechanical Ventilator 01/29/20 08:00 105 01/29/20 07:41 123 92/62 01/29/20 07:00 114 25 114/91 (99) 97 01/29/20 07:00 114/91 01/29/20 06:56 108 25 30 Intake and Output 01/29/20 01/30/20 19:00 07:00 Intake Total 2597.00 ml 2147.00 ml Output Total 0 ml 0 ml Balance 2597.00 ml 2147.00 ml IV Total 2597.00 ml 2147.00 ml Output Urine Total 0 ml 0 ml Laboratory Tests 01/30/20 04:00: White Blood Count 35.0*H, Red Blood Count 2.37L, Hemoglobin 6.9*L, Hematocrit 22.1L, Mean Corpuscular Volume 93, Mean Corpuscular Hemoglobin 29.3, Mean Corpuscular Hemoglobin Concent 31.4L, Red Cell Distribution Width 17.2H, Platelet Count 42#L, Mean Platelet Volume 10.9H, Neutrophils (%) (Auto) , Lymphocytes (%) (Auto) , Monocytes (%) (Auto) , Eosinophils (%) (Auto) , Basophils (%) (Auto) , Neutrophils % (Manual) [Pending], Lymphocytes % (Manual) [Pending], Platelet Estimate [Pending], Platelet Morphology [Pending], Prothrombin Time 18.4H, Prothromb Time International Ratio 1.7H, Sodium Level 133L, Potassium Level 5.0, Chloride Level 92L, Carbon Dioxide Level 22, Anion Gap 19H, Blood Urea Nitrogen 151H, Creatinine 5.2H, Estimat Glomerular Filtration Rate 10.7, Glucose Level 88, Calcium Level 6.3L, Phosphorus Level 12.1H, Magnesium Level 1.9, Total Bilirubin 1.1H, Direct Bilirubin 0.7H, Aspartate Amino Transf (AST/SGOT) 1374H, Alanine Aminotransferase (ALT/SGPT) 238H, Alkaline Phosphatase 154H, Total Protein 4.7L, Albumin 0.6L, Globulin 4.1 , Albumin/Globulin Ratio 0.1L Height (Feet): 5 Height (Inches): 5.00 Weight (Pounds): 138 General Appearance: lethargic EENT: other - leaks around trach Neck: supple Cardiovascular: tachycardia Respiratory/Chest: decreased breath sounds Abdomen: hypoactive bowel sounds Norm Thurston MD Jan 30, 2020 06:52
[2020-01-30] MEDS ORDERED: Phytonadione 1 MG in D5W 55 ML IVPB SCH ×2 (07:00→08:30)
[2020-01-30] MEDS: Norepinephrine Bitartrate 16 MG in D5W 500ml 484 ML IV SCH ×3 (08:00→22:45)
[2020-01-30] MEDS: Pantoprazole Inj IV SCH ×2 (08:34→20:51)
[2020-01-30] MEDS: Heparin 5000 units/ml inj SUBQ SCH ×2 (08:34→21:00)
[2020-01-30] MEDS: Sodium Bicarbonate 100 ML in D5 1/2NS 1,000 ML IV SCH ×2 (10:25→20:50)
--- NOTE | 2020-01-30 10:44 | Infectious Diseases Prog Note ---
Assessment/Plan Assessment: Septic Shock- maxed on 2 presesors, ongoing hypotension 01/29 High grade Gram neg bacteremia- from UTI and obstructive uropathy -01/21 BCx / Citrobacter koseri (S Cefepime, Meropenem) Staph bacteremia- both CONS and MRSA -01/21 08/13 Staph haemolyticus, 2/ MRSA; 01/23 BCx 1/4 S. epi; 01/25 Bcx NTD 2d Echo: no vegetations seen Pneumonia- COVID neg x2 (on same day) Acute on chronic respiratory failure - SP trach/vent dependant -01/23 CXR: Again demonstrated is interstitial disease throughout the left lung as well as right perihilar and basilar interstitial opacities. There is probably a small right pleural effusion. -sp cx P , mirabilis ESBL (S Zosyn, Meropenem) -01/21 rapid COVID neg, COVID NAAT neg UTI -u/a wbc 10-15, nit neg, leuk +3; ucx >100k MDR P. stuarti (S Cefepime, Meropenem , Zosyn) Low grade fever, recurrent- improving Severe leukocytosis; worsening Hypernatremia Hyperkalemia FRIDA; worsening metabolic acidosis -Renal US: Limited exam, as described, poor visualization of the left kidney. Right and probably left hydronephrosis. Probable bladder mass. 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 hx of ESBL Proteus UTI and bacteremia 11/2018 COPD Dementia non verbal functional quadriplegia chronic resp failure s/p trach/vent dependent SNF resident ([facility] [place]) DNR Plan: -Daptomycin # 6(abx d # 03/19) for staph bacteremia -monitor CPK -Continue Meropenem #/ for UTI/bacteremia and PNA -Add empiric Micafungin -01/25 SP AMikacin #5 -01/23 SP IV Vancomycin #3 -01/21 Flagyl x1, Levaquin x 1 -f/u cx -Monitor CBC/CMP, temperatures -COVID19 neg x2 (PCR and rapid); will keep isolation for now until afebrile > 72hrs -ICU/trach/PEG care -aspiration precautions -poor prognosis; consider comfort care -f/u Bcx x2 -CT neck/chest to eval for possible esophagea-tracheal fistula- when more stable Thank you for consulting [facility]. Will continue to follow along with you. Discussed wit RN, Dr Avelar and pharmacist. Subjective Allergies: Coded Allergies: NSAIDS (NON-STEROIDAL ANTI-INFLAMMA (Unverified Allergy, Unknown, 11/27/18) PIPERACILLIN (Unverified Allergy, Unknown, 01/25/19) tolerates carbapenem TAZOBACTAM (Unverified Allergy, Unknown, 11/27/18) Uncoded Allergies: NSAID (Allergy, Unknown, 09/14/18) afebrile in >36hrs remains hypotensive maxed on levo and lisa ongoing bleeding and drainage from trach area wbc increased to the 30s Cr worsened and worsened acidosis Objective Last 24 Hour Vital Signs Date Time Temp Pulse Resp B/P (MAP) Pulse Ox O2 Delivery O2 Flow Rate FiO2 01/30/20 09:45 109 18 81/57 (65) 01/30/20 09:30 86 19 75/59 (64) 01/30/20 09:15 85 19 80/55 (63) 01/30/20 09:00 85 20 76/51 (59) 01/30/20 08:45 85 20 56/17 (30) 01/30/20 08:30 85 20 69/22 (38) 01/30/20 08:15 86 19 87/56 (66) 01/30/20 08:00 85 21 85/48 (60) 92 01/30/20 08:00 76/49 01/30/20 08:00 109 01/30/20 08:00 30 01/30/20 07:58 86 76/49 01/30/20 07:50 86 19 76/49 (58) 95 01/30/20 07:40 87 19 78/48 (58) 01/30/20 07:30 86 19 74/46 (55) 01/30/20 07:20 88 20 99/46 (63) 94 01/30/20 07:12 86 18 30 01/30/20 07:10 19 87/48 (61) 94 01/30/20 07:00 99.0 20 81/53 (62) 95 01/30/20 06:47 87/50 01/30/20 06:30 88 19 78/50 (59) 94 01/30/20 06:00 80/54 01/30/20 06:00 89 20 84/60 (68) 93 01/30/20 06:00 89 25 01/30/20 06:00 89 20 78/50 (59) 75 01/30/20 05:30 89 20 87/50 (62) 75 01/30/20 05:00 92 19 90/48 (62) 94 01/30/20 05:00 90/55 01/30/20 05:00 92 19 90/48 (62) 94 01/30/20 04:30 93 20 86/52 (63) 94 01/30/20 04:30 93 20 86/52 (63) 94 01/30/20 04:00 99.2 92 20 83/52 (62) 93 01/30/20 04:00 98.4 92 20 83/52 (62) 93 01/30/20 04:00 30 01/30/20 04:00 96 01/30/20 04:00 86/49 01/30/20 04:00 Mechanical Ventilator 01/30/20 03:30 96 21 88/49 (62) 96 01/30/20 03:30 96 21 88/49 (62) 96 01/30/20 03:16 94 86/49 01/30/20 03:16 98 19 30 01/30/20 03:10 99 20 86/49 (61) 94 01/30/20 03:00 101 19 91/48 (62) 94 01/30/20 03:00 89/52 01/30/20 03:00 101 19 91/48 (62) 94 01/30/20 02:30 104 19 99/51 (67) 96 01/30/20 02:26 89/45 01/30/20 02:15 98 20 91/60 (70) 95 01/30/20 02:00 95 19 89/56 (67) 93 01/30/20 02:00 91/48 01/30/20 01:45 103 19 86/51 (63) 01/30/20 01:30 108 20 92/51 (65) 95 01/30/20 01:15 110 20 86/50 (62) 94 01/30/20 01:00 106 20 93/49 (64) 94 01/30/20 01:00 88/46 01/30/20 00:45 107 22 84/80 (81) 94 01/30/20 00:30 107 21 90/51 (64) 93 01/30/20 00:15 106 21 92/56 (68) 94 01/30/20 00:00 98.8 102 21 88/54 (65) 93 01/30/20 00:00 Mechanical Ventilator 01/30/20 00:00 91/57 01/29/20 23:45 107 21 80/45 (57) 94 01/29/20 23:30 106 21 88/46 (60) 94 01/29/20 23:25 99 20 30 01/29/20 23:15 111 21 89/50 (63) 94 01/29/20 23:00 105 20 85/49 (61) 94 01/29/20 23:00 85/61 01/29/20 22:54 113 80/65 01/29/20 22:45 105 21 80/46 (57) 94 01/29/20 22:30 107 21 84/50 (61) 94 01/29/20 22:21 82/56 01/29/20 22:15 107 20 88/45 (59) 94 01/29/20 22:00 104 20 90/45 (60) 95 01/29/20 22:00 80/51 01/29/20 21:45 107 20 87/45 (59) 95 01/29/20 21:30 105 20 78/46 (57) 94 01/29/20 21:15 95 34 58/41 (47) 94 01/29/20 21:00 109 21 85/65 (72) 94 01/29/20 21:00 84/64 01/29/20 20:45 108 24 94/54 (67) 93 01/29/20 20:30 109 21 95/64 (74) 95 01/29/20 20:15 110 21 84/50 (61) 92 01/29/20 20:00 Mechanical Ventilator 01/29/20 20:00 109 01/29/20 20:00 30 01/29/20 20:00 60/30 01/29/20 20:00 97.8 108 22 94/59 (71) 92 01/29/20 19:48 106 18 30 01/29/20 19:45 110 22 85/54 (64) 95 01/29/20 19:30 108 21 96/60 (72) 93 01/29/20 19:15 113 21 86/50 (62) 95 01/29/20 19:00 110 21 95/62 (73) 99 01/29/20 19:00 95/62 01/29/20 19:00 110 21 95/62 (73) 87 01/29/20 18:30 114 21 91/57 (68) 99 01/29/20 18:18 112 94/59 01/29/20 18:00 116 20 90/61 (71) 99 01/29/20 18:00 90/61 01/29/20 17:30 112 21 90/50 (63) 98 01/29/20 17:00 112 22 89/58 (68) 98 01/29/20 17:00 89/58 01/29/20 16:30 114 20 101/62 (75) 99 01/29/20 16:00 114 01/29/20 16:00 98.0 116 21 110/81 (91) 97 01/29/20 16:00 Mechanical Ventilator 01/29/20 16:00 30 01/29/20 16:00 110/81 01/29/20 15:40 115 20 30 01/29/20 15:30 114 22 96/68 (77) 95 01/29/20 15:00 100/68 01/29/20 15:00 115 23 100/68 (79) 99 01/29/20 14:30 118 22 110/58 (75) 93 01/29/20 14:00 116 23 100/58 (72) 97 01/29/20 14:00 100/58 01/29/20 13:54 126 82/60 01/29/20 13:41 89/71 01/29/20 13:30 116 22 99/66 (77) 95 01/29/20 13:00 112 22 93/50 (64) 96 01/29/20 13:00 93/50 01/29/20 12:30 114 22 106/71 (83) 99 01/29/20 12:00 113 01/29/20 12:00 Mechanical Ventilator 01/29/20 12:00 30 01/29/20 12:00 108/64 01/29/20 12:00 97.6 114 22 108/64 (79) 97 01/29/20 11:30 117 24 96/76 (83) 98 01/29/20 11:00 92/64 01/29/20 11:00 117 24 (73) 98 01/29/20 10:42 111 25 30 Height (Feet): 5 Height (Inches): 5.00 Weight (Pounds): 138 General Appearance: lethargic, Chronically Ill Head: normocephalic ENT: dry mucus membranes, trach to vent Neck: limited range of motion, tracheotomy Respiratory: decreased breath sounds Cardiovascular #1: Tachycardic Gastrointestinal: non tender, soft, GT tube in place Microbiology Date/Time Source Procedure Growth Status 01/28/20 03:00 Body Fluid Gram Stain - Final Resulted 01/28/20 03:00 Body Fluid Body Fluid Culture Pending Resulted Laboratory Tests Test 01/30/20 04:00 01/30/20 08:12 White Blood Count 35.0 K/UL (4.8-10.8) *H Red Blood Count 2.37 M/UL (4.70-6.10) L Hemoglobin 6.9 G/DL (14.2-18.0) *L Hematocrit 22.1 % (42.0-52.0) L Mean Corpuscular Volume 93 FL (80-99) Mean Corpuscular Hemoglobin 29.3 PG (27.0-31.0) Mean Corpuscular Hemoglobin Concent 31.4 G/DL (32.0-36.0) L Red Cell Distribution Width 17.2 % (11.6-14.8) H Platelet Count 42 K/UL (150-450) #L Mean Platelet Volume 10.9 FL (6.5-10.1) H Neutrophils (%) (Auto) % (45.0-75.0) Lymphocytes (%) (Auto) % (20.0-45.0) Monocytes (%) (Auto) % (1.0-10.0) Eosinophils (%) (Auto) % (0.0-3.0) Basophils (%) (Auto) % (0.0-2.0) Differential Total Cells Counted 100 Neutrophils % (Manual) 88 % (45-75) H Lymphocytes % (Manual) 2 % (20-45) L Monocytes % (Manual) 2 % (1-10) Eosinophils % (Manual) 0 % (0-3) Basophils % (Manual) 0 % (0-2) Band Neutrophils 8 % (0-8) Platelet Estimate Decreased L Platelet Morphology Clumped Platelets 1+ Giant Platelets Occasional Polychromasia 1+ Hypochromasia 1+ Anisocytosis 1+ Prothrombin Time 18.4 SEC (9.30-11.50) H Prothromb Time International Ratio 1.7 (0.9-1.1) H Sodium Level 133 MMOL/L (136-145) L Potassium Level 5.0 MMOL/L (3.5-5.1) Chloride Level 92 MMOL/L (98-107) L Carbon Dioxide Level 22 MMOL/L (21-32) Anion Gap 19 mmol/L (5-15) H Blood Urea Nitrogen 151 mg/dL (7-18) H Creatinine 5.2 MG/DL (0.55-1.30) H Estimat Glomerular Filtration Rate 10.7 mL/min (>60) Glucose Level 88 MG/DL (74-106) Calcium Level 6.3 MG/DL (8.5-10.1) L Phosphorus Level 12.1 MG/DL (2.5-4.9) H Magnesium Level 1.9 MG/DL (1.8-2.4) Total Bilirubin 1.1 MG/DL (0.2-1.0) H Direct Bilirubin 0.7 MG/DL (0.0-0.3) H Aspartate Amino Transf (AST/SGOT) 1374 U/L (15-37) H Alanine Aminotransferase (ALT/SGPT) 238 U/L (12-78) H Alkaline Phosphatase 154 U/L (46-116) H Total Protein 4.7 G/DL (6.4-8.2) L Albumin 0.6 G/DL (3.4-5.0) L Globulin 4.1 g/dL Albumin/Globulin Ratio 0.1 (1.0-2.7) L Arterial Blood pH 7.235 (7.350-7.450) Arterial Blood Partial Pressure CO2 43.9 mmHg (35.0-45.0) Arterial Blood Partial Pressure O2 68.1 mmHg (75.0-100.0) L Arterial Blood HCO3 18.2 mmol/L (22.0-26.0) L Arterial Blood Oxygen Saturation 89.0 % (95-100) *L Arterial Blood Base Excess -8.7 (-2-2) L Behzad Test Positive Current Medications Medications (Trade) Dose Ordered Sig/Margarette Route PRN Reason Start Time Stop Time Status Last Admin Dose Admin Acetaminophen (Tylenol) 650 mg Q4H PRN GT Temp >100.5 01/28/20 21:30 02/27/20 21:29 Allopurinol (allopurinoL) 300 mg DAILY GT 01/27/20 09:00 02/26/20 08:59 01/30/20 08:33 Aluminum Hydroxide (Amphojel) 1,920 mg Q6H GT 01/29/20 10:00 02/28/20 09:59 01/30/20 10:25 Chlorhexidine Gluconate (Flaca-Hex 2%) 1 applic DAILY@2000 TOPIC 01/26/20 20:00 04/25/20 19:59 01/29/20 20:42 Daptomycin 400 mg/ Sodium Chloride 55 ml @ 100 mls/hr Q48H IV 01/25/20 12:00 02/01/20 11:59 01/29/20 11:58 Heparin Sodium (Porcine) (Heparin 5000 units/ml) 5,000 units EVERY 12 HOURS SUBQ 01/22/20 21:00 03/07/20 20:59 01/24/20 20:56 Meropenem 500 mg/ Sodium Chloride 55 ml @ 110 mls/hr Q12H IVPB 01/22/20 14:00 01/31/20 23:59 01/30/20 02:26 Midodrine (Pro-Amatine) 10 mg Q8HR GT 01/24/20 14:00 04/23/20 13:59 01/29/20 20:44 Norepinephrine Bitartrate 16 mg/ Dextrose 500 ml @ 0 mls/hr Q24H IV 01/27/20 09:00 02/26/20 08:59 01/30/20 08:00 Ondansetron HCl (Zofran) 4 mg Q6H PRN IVP Nausea & Vomiting 01/22/20 08:15 02/21/20 08:14 Pantoprazole (Protonix) 40 mg Q12HR IV 01/22/20 09:30 02/21/20 09:29 01/30/20 08:34 Phenylephrine HCl 50 mg/Dextrose 250 ml @ 0 mls/hr Q24H IV 01/27/20 07:03 02/26/20 07:02 01/30/20 07:58 Polyethylene Glycol (Miralax) 17 gm DAILYPRN PRN ORAL Constipation 01/22/20 08:15 02/21/20 08:14 Sodium Bicarbonate 100 ml/Dextrose/ Sodium Chloride 1,100 ml @ 100 mls/hr Q11H IV 01/25/20 09:00 02/24/20 08:59 01/30/20 10:25 Sodium Chloride 1,000 ml @ 999 mls/hr Q1H1M ONCE IV 01/30/20 10:00 01/30/20 11:00 01/30/20 10:25 Sodium Citrate (Bicitra) 30 ml EVERY 6 HOURS GT 01/24/20 18:00 02/23/20 17:59 01/29/20 05:47 Lilly Dorantes M.D. Jan 30, 2020 10:44
[2020-01-30] MEDS ORDERED: Micafungin 100 MG in NS 110 ML IVPB SCH (12:00)
--- NOTE | 2020-01-30 12:17 | Pulmonolgy Critical Care Note ---
Critical Care - Asmt/Plan Problems: (1) Encephalopathy acute (2) Multiple organ failure (3) Acute on chronic respiratory failure (4) Sepsis (5) FRIDA (acute kidney injury) (6) Thrombocytopenia (7) Dehydration (8) Feeding by G-tube (9) Protein-calorie malnutrition, severe (10) Chronic respiratory failure (11) funtional quadriplegia (12) Ventilator dependent Respiratory: adjust tidal volume, monitor respiratory rate, adjust FIO2 Cardiac: continue to monitor HR/BP Renal: F/U I&O, keep IV fluid Infectious Disease: continue antibiotics Gastrointestinal: hold feedings Endocrine: monitor blood sugar, check HgA1C Hematologic: monitor H/H Neurologic: PRN Ativan Affect: PRN ativan Prophylaxis: Protonix, Heparin Notes Reviewed: ornamenter hand, cardio, renal Discussed with: nurses, consultants, caseworker intakebackpackers manager - Objective Last 24 Hour Vital Signs Date Time Temp Pulse Resp B/P (MAP) Pulse Ox O2 Delivery O2 Flow Rate FiO2 01/30/20 12:00 107 01/30/20 11:11 107 17 30 01/30/20 11:00 80 18 89/50 (63) 01/30/20 09:45 109 18 81/57 (65) 01/30/20 09:30 86 19 75/59 (64) 01/30/20 09:15 85 19 80/55 (63) 01/30/20 09:00 85 20 76/51 (59) 01/30/20 08:45 85 20 56/17 (30) 01/30/20 08:30 85 20 69/22 (38) 01/30/20 08:15 86 19 87/56 (66) 01/30/20 08:00 85 21 85/48 (60) 92 01/30/20 08:00 76/49 01/30/20 08:00 109 01/30/20 08:00 Mechanical Ventilator 01/30/20 08:00 30 01/30/20 07:58 86 76/49 01/30/20 07:50 86 19 76/49 (58) 95 01/30/20 07:40 87 19 78/48 (58) 01/30/20 07:30 86 19 74/46 (55) 01/30/20 07:20 88 20 99/46 (63) 94 01/30/20 07:12 86 18 30 01/30/20 07:10 19 87/48 (61) 94 01/30/20 07:00 99.0 20 81/53 (62) 95 01/30/20 06:47 87/50 01/30/20 06:30 88 19 78/50 (59) 94 01/30/20 06:00 80/54 01/30/20 06:00 89 20 84/60 (68) 93 01/30/20 06:00 89 25 01/30/20 06:00 89 20 78/50 (59) 75 01/30/20 05:30 89 20 87/50 (62) 75 01/30/20 05:00 92 19 90/48 (62) 94 01/30/20 05:00 90/55 01/30/20 05:00 92 19 90/48 (62) 94 01/30/20 04:30 93 20 86/52 (63) 94 01/30/20 04:30 93 20 86/52 (63) 94 01/30/20 04:00 99.2 92 20 83/52 (62) 93 01/30/20 04:00 98.4 92 20 83/52 (62) 93 01/30/20 04:00 30 01/30/20 04:00 96 01/30/20 04:00 86/49 01/30/20 04:00 Mechanical Ventilator 01/30/20 03:30 96 21 88/49 (62) 96 01/30/20 03:30 96 21 88/49 (62) 96 01/30/20 03:16 94 86/49 01/30/20 03:16 98 19 30 01/30/20 03:10 99 20 86/49 (61) 94 01/30/20 03:00 101 19 91/48 (62) 94 01/30/20 03:00 89/52 01/30/20 03:00 101 19 91/48 (62) 94 01/30/20 02:30 104 19 99/51 (67) 96 01/30/20 02:26 89/45 01/30/20 02:15 98 20 91/60 (70) 95 01/30/20 02:00 95 19 89/56 (67) 93 01/30/20 02:00 91/48 01/30/20 01:45 103 19 86/51 (63) 01/30/20 01:30 108 20 92/51 (65) 95 01/30/20 01:15 110 20 86/50 (62) 94 01/30/20 01:00 106 20 93/49 (64) 94 01/30/20 01:00 88/46 01/30/20 00:45 107 22 84/80 (81) 94 01/30/20 00:30 107 21 90/51 (64) 93 01/30/20 00:15 106 21 92/56 (68) 94 01/30/20 00:00 98.8 102 21 88/54 (65) 93 01/30/20 00:00 Mechanical Ventilator 01/30/20 00:00 91/57 01/29/20 23:45 107 21 80/45 (57) 94 01/29/20 23:30 106 21 88/46 (60) 94 01/29/20 23:25 99 20 30 01/29/20 23:15 111 21 89/50 (63) 94 01/29/20 23:00 105 20 85/49 (61) 94 01/29/20 23:00 85/61 01/29/20 22:54 113 80/65 01/29/20 22:45 105 21 80/46 (57) 94 01/29/20 22:30 107 21 84/50 (61) 94 01/29/20 22:21 82/56 01/29/20 22:15 107 20 88/45 (59) 94 01/29/20 22:00 104 20 90/45 (60) 95 01/29/20 22:00 80/51 01/29/20 21:45 107 20 87/45 (59) 95 01/29/20 21:30 105 20 78/46 (57) 94 01/29/20 21:15 95 34 58/41 (47) 94 01/29/20 21:00 109 21 85/65 (72) 94 01/29/20 21:00 84/64 01/29/20 20:45 108 24 94/54 (67) 93 01/29/20 20:30 109 21 95/64 (74) 95 01/29/20 20:15 110 21 84/50 (61) 92 01/29/20 20:00 Mechanical Ventilator 01/29/20 20:00 109 01/29/20 20:00 30 01/29/20 20:00 60/30 01/29/20 20:00 97.8 108 22 94/59 (71) 92 01/29/20 19:48 106 18 30 01/29/20 19:45 110 22 85/54 (64) 95 01/29/20 19:30 108 21 96/60 (72) 93 01/29/20 19:15 113 21 86/50 (62) 95 01/29/20 19:00 110 21 95/62 (73) 99 01/29/20 19:00 95/62 01/29/20 19:00 110 21 95/62 (73) 87 01/29/20 18:30 114 21 91/57 (68) 99 01/29/20 18:18 112 94/59 01/29/20 18:00 116 20 90/61 (71) 99 01/29/20 18:00 90/61 01/29/20 17:30 112 21 90/50 (63) 98 01/29/20 17:00 112 22 89/58 (68) 98 01/29/20 17:00 89/58 01/29/20 16:30 114 20 101/62 (75) 99 01/29/20 16:00 114 01/29/20 16:00 98.0 116 21 110/81 (91) 97 01/29/20 16:00 Mechanical Ventilator 01/29/20 16:00 30 01/29/20 16:00 110/81 01/29/20 15:40 115 20 30 01/29/20 15:30 114 22 96/68 (77) 95 01/29/20 15:00 100/68 01/29/20 15:00 115 23 100/68 (79) 99 01/29/20 14:30 118 22 110/58 (75) 93 01/29/20 14:00 116 23 100/58 (72) 97 01/29/20 14:00 100/58 01/29/20 13:54 126 82/60 01/29/20 13:41 89/71 01/29/20 13:30 116 22 99/66 (77) 95 01/29/20 13:00 112 22 93/50 (64) 96 01/29/20 13:00 93/50 01/29/20 12:30 114 22 106/71 (83) 99 Status: obtunded Condition: critical, grave Neck: trach Lungs: rales, rhonchi Heart: HR/BP stable Abdomen: soft, non-tender Micro: Microbiology Date/Time Source Procedure Growth Status 01/28/20 03:00 Body Fluid Gram Stain - Final Resulted 01/28/20 03:00 Body Fluid Culture - Preliminary Gram Negative Bacillus 1 Yeast Species Resulted Critical Care - Subjective ROS Limited/Unobtainable: Yes Condition: grave, unchanged FI02: 30 Vent Support Breath Rate: 16 Vent Support Mode: AC Vent Tidal Volume: 500 Sputum Amount: Scant PEEP: 5.0 PIP: 49 I&O: Intake and Output 01/29/20 01/30/20 19:00 07:00 Intake Total 2597.00 ml 2415.75 ml Output Total 0 ml 0 ml Balance 2597.00 ml 2415.75 ml IV Total 2597.00 ml 2415.75 ml Output Urine Total 0 ml 0 ml Labs: Laboratory Tests Test 01/30/20 04:00 01/30/20 08:12 White Blood Count 35.0 K/UL (4.8-10.8) *H Red Blood Count 2.37 M/UL (4.70-6.10) L Hemoglobin 6.9 G/DL (14.2-18.0) *L Hematocrit 22.1 % (42.0-52.0) L Mean Corpuscular Volume 93 FL (80-99) Mean Corpuscular Hemoglobin 29.3 PG (27.0-31.0) Mean Corpuscular Hemoglobin Concent 31.4 G/DL (32.0-36.0) L Red Cell Distribution Width 17.2 % (11.6-14.8) H Platelet Count 42 K/UL (150-450) #L Mean Platelet Volume 10.9 FL (6.5-10.1) H Neutrophils (%) (Auto) % (45.0-75.0) Lymphocytes (%) (Auto) % (20.0-45.0) Monocytes (%) (Auto) % (1.0-10.0) Eosinophils (%) (Auto) % (0.0-3.0) Basophils (%) (Auto) % (0.0-2.0) Differential Total Cells Counted 100 Neutrophils % (Manual) 88 % (45-75) H Lymphocytes % (Manual) 2 % (20-45) L Monocytes % (Manual) 2 % (1-10) Eosinophils % (Manual) 0 % (0-3) Basophils % (Manual) 0 % (0-2) Band Neutrophils 8 % (0-8) Platelet Estimate Decreased L Platelet Morphology Clumped Platelets 1+ Giant Platelets Occasional Polychromasia 1+ Hypochromasia 1+ Anisocytosis 1+ Prothrombin Time 18.4 SEC (9.30-11.50) H Prothromb Time International Ratio 1.7 (0.9-1.1) H Sodium Level 133 MMOL/L (136-145) L Potassium Level 5.0 MMOL/L (3.5-5.1) Chloride Level 92 MMOL/L (98-107) L Carbon Dioxide Level 22 MMOL/L (21-32) Anion Gap 19 mmol/L (5-15) H Blood Urea Nitrogen 151 mg/dL (7-18) H Creatinine 5.2 MG/DL (0.55-1.30) H Estimat Glomerular Filtration Rate 10.7 mL/min (>60) Glucose Level 88 MG/DL (74-106) Calcium Level 6.3 MG/DL (8.5-10.1) L Phosphorus Level 12.1 MG/DL (2.5-4.9) H Magnesium Level 1.9 MG/DL (1.8-2.4) Total Bilirubin 1.1 MG/DL (0.2-1.0) H Direct Bilirubin 0.7 MG/DL (0.0-0.3) H Aspartate Amino Transf (AST/SGOT) 1374 U/L (15-37) H Alanine Aminotransferase (ALT/SGPT) 238 U/L (12-78) H Alkaline Phosphatase 154 U/L (46-116) H Total Protein 4.7 G/DL (6.4-8.2) L Albumin 0.6 G/DL (3.4-5.0) L Globulin 4.1 g/dL Albumin/Globulin Ratio 0.1 (1.0-2.7) L Arterial Blood pH 7.235 (7.350-7.450) Arterial Blood Partial Pressure CO2 43.9 mmHg (35.0-45.0) Arterial Blood Partial Pressure O2 68.1 mmHg (75.0-100.0) L Arterial Blood HCO3 18.2 mmol/L (22.0-26.0) L Arterial Blood Oxygen Saturation 89.0 % (95-100) *L Arterial Blood Base Excess -8.7 (-2-2) L Behzad Test Positive Dennis Woodall MD Jan 30, 2020 12:17
--- NOTE | 2020-01-30 12:21 | Diagnostic Imaging Report ---
Procedure: XRAY Chest 1v Reason for study: Reason For Exam: [id number] Comparison films: 01/28/2020. FINDINGS: Radiograph is rotated. Tracheostomy remains in place. Right subclavian line again identified with the tip folded back on itself. The appearance is unchanged compared to prior exam. There is new complete white out of the left hemithorax which may be due to complete of lung atelectasis. Right lung is mostly clear. Cardiac silhouette is obscured. Left effusion cannot be excluded. The bony thorax appear unremarkable. IMPRESSION: New complete white out of the left hemithorax perhaps secondary to complete atelectasis of the left lung. Underlying left effusion cannot be excluded. Redemonstration of right subclavian line with the tip which appears folded back on itself. This is unchanged compared to prior exam. Please check function of catheter.
--- NOTE | 2020-01-30 12:34 | Surgery Progress Note ---
Surgery Progress Note Subjective Additional Comments cxr noted very poor still draining prognosis guarded Objective Last 24 Hour Vital Signs Date Time Temp Pulse Resp B/P (MAP) Pulse Ox O2 Delivery O2 Flow Rate FiO2 01/30/20 12:00 107 01/30/20 11:11 107 17 30 01/30/20 11:00 80 18 89/50 (63) 01/30/20 09:45 109 18 81/57 (65) 01/30/20 09:30 86 19 75/59 (64) 01/30/20 09:15 85 19 80/55 (63) 01/30/20 09:00 85 20 76/51 (59) 01/30/20 08:45 85 20 56/17 (30) 01/30/20 08:30 85 20 69/22 (38) 01/30/20 08:15 86 19 87/56 (66) 01/30/20 08:00 85 21 85/48 (60) 92 01/30/20 08:00 76/49 01/30/20 08:00 109 01/30/20 08:00 Mechanical Ventilator 01/30/20 08:00 30 01/30/20 07:58 86 76/49 01/30/20 07:50 86 19 76/49 (58) 95 01/30/20 07:40 87 19 78/48 (58) 01/30/20 07:30 86 19 74/46 (55) 01/30/20 07:20 88 20 99/46 (63) 94 01/30/20 07:12 86 18 30 01/30/20 07:10 19 87/48 (61) 94 01/30/20 07:00 99.0 20 81/53 (62) 95 01/30/20 06:47 87/50 01/30/20 06:30 88 19 78/50 (59) 94 01/30/20 06:00 80/54 01/30/20 06:00 89 20 84/60 (68) 93 01/30/20 06:00 89 25 01/30/20 06:00 89 20 78/50 (59) 75 01/30/20 05:30 89 20 87/50 (62) 75 01/30/20 05:00 92 19 90/48 (62) 94 01/30/20 05:00 90/55 01/30/20 05:00 92 19 90/48 (62) 94 01/30/20 04:30 93 20 86/52 (63) 94 01/30/20 04:30 93 20 86/52 (63) 94 01/30/20 04:00 99.2 92 20 83/52 (62) 93 01/30/20 04:00 98.4 92 20 83/52 (62) 93 01/30/20 04:00 30 01/30/20 04:00 96 01/30/20 04:00 86/49 01/30/20 04:00 Mechanical Ventilator 01/30/20 03:30 96 21 88/49 (62) 96 01/30/20 03:30 96 21 88/49 (62) 96 01/30/20 03:16 94 86/49 01/30/20 03:16 98 19 30 01/30/20 03:10 99 20 86/49 (61) 94 01/30/20 03:00 101 19 91/48 (62) 94 01/30/20 03:00 89/52 01/30/20 03:00 101 19 91/48 (62) 94 01/30/20 02:30 104 19 99/51 (67) 96 01/30/20 02:26 89/45 01/30/20 02:15 98 20 91/60 (70) 95 01/30/20 02:00 95 19 89/56 (67) 93 01/30/20 02:00 91/48 01/30/20 01:45 103 19 86/51 (63) 01/30/20 01:30 108 20 92/51 (65) 95 01/30/20 01:15 110 20 86/50 (62) 94 01/30/20 01:00 106 20 93/49 (64) 94 01/30/20 01:00 88/46 01/30/20 00:45 107 22 84/80 (81) 94 01/30/20 00:30 107 21 90/51 (64) 93 01/30/20 00:15 106 21 92/56 (68) 94 01/30/20 00:00 98.8 102 21 88/54 (65) 93 01/30/20 00:00 Mechanical Ventilator 01/30/20 00:00 91/57 01/29/20 23:45 107 21 80/45 (57) 94 01/29/20 23:30 106 21 88/46 (60) 94 01/29/20 23:25 99 20 30 01/29/20 23:15 111 21 89/50 (63) 94 01/29/20 23:00 105 20 85/49 (61) 94 01/29/20 23:00 85/61 01/29/20 22:54 113 80/65 01/29/20 22:45 105 21 80/46 (57) 94 01/29/20 22:30 107 21 84/50 (61) 94 20 22:21 82/56 01/29/20 22:15 107 20 88/45 (59) 94 01/29/20 22:00 104 20 90/45 (60) 95 01/29/20 22:00 80/51 01/29/20 21:45 107 20 87/45 (59) 95 01/29/20 21:30 105 20 78/46 (57) 94 01/29/20 21:15 95 34 58/41 (47) 94 01/29/20 21:00 109 21 85/65 (72) 94 01/29/20 21:00 84/64 01/29/20 20:45 108 24 94/54 (67) 93 01/29/20 20:30 109 21 95/64 (74) 95 01/29/20 20:15 110 21 84/50 (61) 92 01/29/20 20:00 Mechanical Ventilator 01/29/20 20:00 109 01/29/20 20:00 30 01/29/20 20:00 60/30 01/29/20 20:00 97.8 108 22 94/59 (71) 92 01/29/20 19:48 106 18 30 01/29/20 19:45 110 22 85/54 (64) 95 01/29/20 19:30 108 21 96/60 (72) 93 01/29/20 19:15 113 21 86/50 (62) 95 01/29/20 19:00 110 21 95/62 (73) 99 01/29/20 19:00 95/62 01/29/20 19:00 110 21 95/62 (73) 87 01/29/20 18:30 114 21 91/57 (68) 99 01/29/20 18:18 112 94/59 01/29/20 18:00 116 20 90/61 (71) 99 01/29/20 18:00 90/61 01/29/20 17:30 112 21 90/50 (63) 98 01/29/20 17:00 112 22 89/58 (68) 98 01/29/20 17:00 89/58 01/29/20 16:30 114 20 101/62 (75) 99 01/29/20 16:00 114 01/29/20 16:00 98.0 116 21 110/81 (91) 97 01/29/20 16:00 Mechanical Ventilator 01/29/20 16:00 30 01/29/20 16:00 110/81 01/29/20 15:40 115 20 30 01/29/20 15:30 114 22 96/68 (77) 95 01/29/20 15:00 100/68 01/29/20 15:00 115 23 100/68 (79) 99 01/29/20 14:30 118 22 110/58 (75) 93 01/29/20 14:00 116 23 100/58 (72) 97 01/29/20 14:00 100/58 01/29/20 13:54 126 82/60 01/29/20 13:41 89/71 01/29/20 13:30 116 22 99/66 (77) 95 01/29/20 13:00 112 22 93/50 (64) 96 01/29/20 13:00 93/50 I&O Intake and Output 01/29/20 01/30/20 19:00 07:00 Intake Total 2597.00 ml 2415.75 ml Output Total 0 ml 0 ml Balance 2597.00 ml 2415.75 ml IV Total 2597.00 ml 2415.75 ml Output Urine Total 0 ml 0 ml Dressing: saturated Wound: other Drains: other Cardiovascular: RSR Respiratory: decreased breath sounds, other Abdomen: soft, present bowel sounds Extremities: no cyanosis Laboratory Tests Test 01/30/20 04:00 01/30/20 08:12 White Blood Count 35.0 K/UL (4.8-10.8) *H Red Blood Count 2.37 M/UL (4.70-6.10) L Hemoglobin 6.9 G/DL (14.2-18.0) *L Hematocrit 22.1 % (42.0-52.0) L Mean Corpuscular Volume 93 FL (80-99) Mean Corpuscular Hemoglobin 29.3 PG (27.0-31.0) Mean Corpuscular Hemoglobin Concent 31.4 G/DL (32.0-36.0) L Red Cell Distribution Width 17.2 % (11.6-14.8) H Platelet Count 42 K/UL (150-450) #L Mean Platelet Volume 10.9 FL (6.5-10.1) H Neutrophils (%) (Auto) % (45.0-75.0) Lymphocytes (%) (Auto) % (20.0-45.0) Monocytes (%) (Auto) % (1.0-10.0) Eosinophils (%) (Auto) % (0.0-3.0) Basophils (%) (Auto) % (0.0-2.0) Differential Total Cells Counted 100 Neutrophils % (Manual) 88 % (45-75) H Lymphocytes % (Manual) 2 % (20-45) L Monocytes % (Manual) 2 % (1-10) Eosinophils % (Manual) 0 % (0-3) Basophils % (Manual) 0 % (0-2) Band Neutrophils 8 % (0-8) Platelet Estimate Decreased L Platelet Morphology Clumped Platelets 1+ Giant Platelets Occasional Polychromasia 1+ Hypochromasia 1+ Anisocytosis 1+ Prothrombin Time 18.4 SEC (9.30-11.50) H Prothromb Time International Ratio 1.7 (0.9-1.1) H Sodium Level 133 MMOL/L (136-145) L Potassium Level 5.0 MMOL/L (3.5-5.1) Chloride Level 92 MMOL/L (98-107) L Carbon Dioxide Level 22 MMOL/L (21-32) Anion Gap 19 mmol/L (5-15) H Blood Urea Nitrogen 151 mg/dL (7-18) H Creatinine 5.2 MG/DL (0.55-1.30) H Estimat Glomerular Filtration Rate 10.7 mL/min (>60) Glucose Level 88 MG/DL (74-106) Calcium Level 6.3 MG/DL (8.5-10.1) L Phosphorus Level 12.1 MG/DL (2.5-4.9) H Magnesium Level 1.9 MG/DL (1.8-2.4) Total Bilirubin 1.1 MG/DL (0.2-1.0) H Direct Bilirubin 0.7 MG/DL (0.0-0.3) H Aspartate Amino Transf (AST/SGOT) 1374 U/L (15-37) H Alanine Aminotransferase (ALT/SGPT) 238 U/L (12-78) H Alkaline Phosphatase 154 U/L (46-116) H Total Protein 4.7 G/DL (6.4-8.2) L Albumin 0.6 G/DL (3.4-5.0) L Globulin 4.1 g/dL Albumin/Globulin Ratio 0.1 (1.0-2.7) L Arterial Blood pH 7.235 (7.350-7.450) Arterial Blood Partial Pressure CO2 43.9 mmHg (35.0-45.0) Arterial Blood Partial Pressure O2 68.1 mmHg (75.0-100.0) L Arterial Blood HCO3 18.2 mmol/L (22.0-26.0) L Arterial Blood Oxygen Saturation 89.0 % (95-100) *L Arterial Blood Base Excess -8.7 (-2-2) L Behzad Test Positive Plan Problems: (1) Dehydration (2) Urinary tract infection (3) Ventilator dependent (4) Bilateral pleural effusion (5) Decubitus skin ulcer Assessment & Plan: Pt presented on admission with in grossly unkempt state, with Contractures and multiple Pressure injuries.Skin turgor is poor. Color is dusky. Generalized dry,scaly skin. Gastrostomy stoma is eroded and oozing moderate amt malodorous,Black,mud consistency exudate. Clusters of Unstageabloe Pressure injury Thoracic Spine. Base of wound has multiple small islands of slough with soft erythematous bridges giving wound appearance of multiple wounds. Area measuring (L)4cm x (W)3.6cm. In close proximity, to L of thoracic spine is a Partial thickness Pressure injury(L)5cm x (W)3.5cm. Base of wound is cade with macerated borders.Small amt sanguineous exudate noted. Resolving Full thickness 4 Pressure injury R Trochanter(L)0.7cm x (W)1.2cm, slight tunneled area at 11o'clock by 0.3cm. Surrounding pink epithelial bordered by hyperpigmentation. NO odor or exudate noted. Partial thickness shearing noted over Previously compromised skin (L)9cm x (W) 10.5cm. Base of wound is erythematous with multiple Scattered satellite lesions that are oozing sanguineous exudate. Unstageable Pressure injury distally, medial R Tibia(L)1.3cm x (W)1.1 cm . Base of wound is 100% yellow slough with marginal erythematous borders. No odor or exudate noted. Xerosis skin periwound. Pressure injury R Hallux. Base of wound is 40% dry eschar ,60% pink epithelial. No exudate noted. No erythema or fluctuance periwound. R Heel is boggy with non-blanchable erythema. Wound Plantar R foot(L)0.6cm x (W)0.8cm. 100% slough at base of wound . Marginal erythema along edges. Periwound is fluctuant and erythematous. At web space between R 1st and 2nd metatarsals is a Partial Thickness wound that is cade and oozing small amt sanguineous exudate. At Plantar aspect of R 3rd metatarsal noted to be oozing small amt Sanguineous exudate. Assessment of wound is not fully appreciated secondary to clubbing of metatarsals. Swabbed with Betadine and small gauze pressure drsg applied. Resolving Pressure Injury L Heel(L)6.5cm x (W)5cm. Base of wound is 90% pink epithelial, 10% dry eschar. NO odor or exudate noted . Scattered small dry,black scabs noted to R and L dorsal aspects feet ,including dorsal aspects of metatarsals both feet. Cleanse wounds Thoracic Spine with Saline. Apply TheraHoney. Apply Cavilon Skin Barrier Periwound. Cover with Optifoam drsg.Change every 3 days and prn. Apply Moisture Barrier Paste to Buttocks. Cover with Optifoam drsg. Change every 3 days and prn. Apply Betadine to wounds both feet. Cover with Abd pads and wrap each foot with Kerlix drsg. Wash GT site with Soap and Water and apply Loose Gauze drsg Daily and prn. Cleanse wound R trochanter with saline. Apply Therahoney,Apply Cavilon Periwound. Cover with Optifoam drsg. Change every 3 days and prn. Cleanse wounds L hip and L trochanter with Saline. Apply Therahoney. Apply Cavilon periwound .Cover with Optifoam drsg every 3 days and prn. Cleanse wounds L scapula with Saline. Apply TheraHoney. Apply Cavilon periwound.Cover with Optifoam drsg every 3 days and prn. Apply Triad paste to sacrum ,groin and scrotum with each Incontinence care. Cleanse wounds R and L foot with Saline. Apply TheraHoney. Cover wounds with Abd pads and wrap both feet with Kerlix gauze every 3 days and prn. Air Fluidized mattress. Reposition at least every 2hours or as tolerated. Place pillow between knees. Off-load heels with pillow. nutritional; optimization (6) funtional quadriplegia (7) Sepsis Assessment & Plan: labs reviewed on abx cxr noted unchanged wean as tolerated tf anticoag lira will monitor worsening drainage around trach possible fistula vs abscess CT pending (8) Chronic respiratory failure (9) Pneumonia (10) Acute on chronic respiratory failure Assessment & Plan: Bilateral interstitial opacities, left basilar pleural fluid and/or consolidation, left lung volume loss appear unchanged. Tracheostomy remains. 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 2) Swallowing difficulty r/t respiratory failure as evidenced by pt is trach/ vent dep and GT dependent. CURRENT TF:NPO ENTERAL NUTRITION RECOMMENDATIONS: Nepro @ 45ml/hr x 24 hrs to provide 1080ml, 1944kcal, 87g prot, 785ml free water FEED W/ HEMODYNAMIC STABILITY -> Rec Nepro at this time due to ARF, K consistently elev, now 6.2* -> Initiate Nepro @ 15ml/hr x 6hrs, advance 10ml q 4-6 hrs as tolerated to goal rate -> HOB over 30 degrees/ water flush per MD Without hemodynamic stability, rec trophic feeding of Nepro @ 5ml/hr x 24hrs ADDITIONAL RECOMMENDATIONS: * PER SNF: HT=72 inches, NQ=457tkl (01/08) vs EMR HT= 65" inches and PT=557bhv -> RECALIBRATE BEDSCALE * Monitor renal fxn and lytes, need for continued rec for Nepro * Monitor HD stability: NE @ 6mcg * Wound healing: add vit C 500mg BID, [place] BID w/ TF order * Consider accuchecks for close BG monitoring for hypoglycemia -> cont D5 while pt NPO (13) Protein-calorie malnutrition, severe (14) At high risk for aspiration (15) ATN (acute tubular necrosis) (16) Severe anemia (17) Encephalopathy acute Stanislav Avelar Jan 30, 2020 12:34
--- NOTE | 2020-01-30 13:31 | Nephrology Progress Note ---
Assessment/Plan Problem List: (1) FRIDA (acute kidney injury) (2) Sepsis (3) Ventilator dependent (4) Bilateral pleural effusion (5) Decubitus skin ulcer (6) Electrolyte imbalance Assessment: Hyperkalemia, hypernatremia Assessment FRIDA Dehydration, hypernatremia, hyperkalemia Anemia Chronic vent dependent, with superimposed acute component Bilateral pleural effusion Sepsis, leukocytosis, UTI Functional quadriplegia History of coronary artery disease and NH Multiple decubiti Chronic malnutrition Plan January 29: On maximum pressors. Renal parameters and function worsened. Patient DNR. Patient preterminal. Suggest comfort care. January 28: Doing poorly. Hypotensive on max pressors. Renal function worsening. No candidate for hemodialysis treatment. Phosphate supplements given. Discussed with RN. January 27: Continue to do poorly. 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 Continue present management. Discussed with RN. Magnesium supplement given. January 26: Serum potassium within normal limit. Continues to be on Kayexalate. Digoxin level down to 1.7. Continue per consultants. Continue to do poorly. Patient DNR. January 25: Potassium remains elevated. Kayexalate given. Digoxin level higher to 2.1 . IV digoxin discontinued yesterday. Doing poorly. Continue present management. January 24: Potassium still high. Kayexalate every 6 hours ordered. Patient continues to do poorly. Digoxin level is 2, will hold IV digoxin for now. January 23: Potassium remains high. Kayexalate given. Bicitra started. Midodrin started. Patient DNR now. Continue per consultants. Overall prognosis poor. Hemodynamically unstable for dialysis treatment. Per order. Patient is doing poorly. No urine output. Labs reviewed. Discussed with RN and Miles. Kayexalate given for hyperkalemia. IV D5 and a half normal saline Pressors Antibiotics Skin care Continue per consultants Monitor renal parameters Avoid nephrotoxic's Patient now DNR. No candidate for dialysis treatment due to multiple medical issues, sepsis, poor prognosis. Subjective ROS Limited/Unobtainable: Yes Objective Objective Last 24 Hour Vital Signs Date Time Temp Pulse Resp B/P (MAP) Pulse Ox O2 Delivery O2 Flow Rate FiO2 01/30/20 13:02 69/52 01/30/20 13:01 77 01/30/20 13:00 73/49 01/30/20 12:45 78 17 69/52 (58) 01/30/20 12:30 107 18 81/52 (62) 01/30/20 12:15 107 17 81/43 (56) 01/30/20 12:00 30 01/30/20 12:00 Mechanical Ventilator 01/30/20 12:00 78/46 01/30/20 12:00 98.8 79 16 78/46 (57) 01/30/20 12:00 107 01/30/20 11:11 107 17 30 01/30/20 11:00 89/50 01/30/20 11:00 80 18 89/50 (63) 01/30/20 10:00 79/47 01/30/20 09:45 109 18 81/57 (65) 01/30/20 09:30 86 19 75/59 (64) 01/30/20 09:15 85 19 80/55 (63) 01/30/20 09:00 76/51 01/30/20 09:00 85 20 76/51 (59) 01/30/20 08:45 85 20 56/17 (30) 01/30/20 08:30 85 20 69/22 (38) 01/30/20 08:15 86 19 87/56 (66) 01/30/20 08:00 85 21 85/48 (60) 92 01/30/20 08:00 76/49 01/30/20 08:00 109 01/30/20 08:00 Mechanical Ventilator 01/30/20 08:00 30 01/30/20 07:58 86 76/49 01/30/20 07:50 86 19 76/49 (58) 95 01/30/20 07:40 87 19 78/48 (58) 01/30/20 07:30 86 19 74/46 (55) 01/30/20 07:20 88 20 99/46 (63) 94 01/30/20 07:12 86 18 30 01/30/20 07:10 19 87/48 (61) 94 01/30/20 07:00 99.0 20 81/53 (62) 95 01/30/20 06:47 87/50 01/30/20 06:30 88 19 78/50 (59) 94 01/30/20 06:00 80/54 01/30/20 06:00 89 20 84/60 (68) 93 01/30/20 06:00 89 25 01/30/20 06:00 89 20 78/50 (59) 75 01/30/20 05:30 89 20 87/50 (62) 75 01/30/20 05:00 92 19 90/48 (62) 94 01/30/20 05:00 90/55 01/30/20 05:00 92 19 90/48 (62) 94 01/30/20 04:30 93 20 86/52 (63) 94 01/30/20 04:30 93 20 86/52 (63) 94 01/30/20 04:00 99.2 92 20 83/52 (62) 93 01/30/20 04:00 98.4 92 20 83/52 (62) 93 01/30/20 04:00 30 01/30/20 04:00 96 01/30/20 04:00 86/49 01/30/20 04:00 Mechanical Ventilator 01/30/20 03:30 96 21 88/49 (62) 96 01/30/20 03:30 96 21 88/49 (62) 96 01/30/20 03:16 94 86/49 01/30/20 03:16 98 19 30 01/30/20 03:10 99 20 86/49 (61) 94 01/30/20 03:00 101 19 91/48 (62) 94 01/30/20 03:00 89/52 01/30/20 03:00 101 19 91/48 (62) 94 01/30/20 02:30 104 19 99/51 (67) 96 01/30/20 02:26 89/45 01/30/20 02:15 98 20 91/60 (70) 95 01/30/20 02:00 95 19 89/56 (67) 93 01/30/20 02:00 91/48 01/30/20 01:45 103 19 86/51 (63) 01/30/20 01:30 108 20 92/51 (65) 95 01/30/20 01:15 110 20 86/50 (62) 94 01/30/20 01:00 106 20 93/49 (64) 94 01/30/20 01:00 88/46 01/30/20 00:45 107 22 84/80 (81) 94 01/30/20 00:30 107 21 90/51 (64) 93 01/30/20 00:15 106 21 92/56 (68) 94 01/30/20 00:00 98.8 102 21 88/54 (65) 93 01/30/20 00:00 Mechanical Ventilator 01/30/20 00:00 91/57 01/29/20 23:45 107 21 80/45 (57) 94 01/29/20 23:30 106 21 88/46 (60) 94 01/29/20 23:25 99 20 30 01/29/20 23:15 111 21 89/50 (63) 94 01/29/20 23:00 105 20 85/49 (61) 94 01/29/20 23:00 85/61 01/29/20 22:54 113 80/65 01/29/20 22:45 105 21 80/46 (57) 94 01/29/20 22:30 107 21 84/50 (61) 94 01/29/20 22:21 82/56 01/29/20 22:15 107 20 88/45 (59) 94 01/29/20 22:00 104 20 90/45 (60) 95 01/29/20 22:00 80/51 01/29/20 21:45 107 20 87/45 (59) 95 01/29/20 21:30 105 20 78/46 (57) 94 01/29/20 21:15 95 34 58/41 (47) 94 01/29/20 21:00 109 21 85/65 (72) 94 01/29/20 21:00 84/64 01/29/20 20:45 108 24 94/54 (67) 93 01/29/20 20:30 109 21 95/64 (74) 95 01/29/20 20:15 110 21 84/50 (61) 92 01/29/20 20:00 Mechanical Ventilator 01/29/20 20:00 109 01/29/20 20:00 30 01/29/20 20:00 60/30 01/29/20 20:00 97.8 108 22 94/59 (71) 92 01/29/20 19:48 106 18 30 01/29/20 19:45 110 22 85/54 (64) 95 01/29/20 19:30 108 21 96/60 (72) 93 01/29/20 19:15 113 21 86/50 (62) 95 01/29/20 19:00 110 21 95/62 (73) 99 01/29/20 19:00 95/62 01/29/20 19:00 110 21 95/62 (73) 87 01/29/20 18:30 114 21 91/57 (68) 99 01/29/20 18:18 112 94/59 01/29/20 18:00 116 20 90/61 (71) 99 01/29/20 18:00 90/61 01/29/20 17:30 112 21 90/50 (63) 98 01/29/20 17:00 112 22 89/58 (68) 98 01/29/20 17:00 89/58 01/29/20 16:30 114 20 101/62 (75) 99 01/29/20 16:00 114 01/29/20 16:00 98.0 116 21 110/81 (91) 97 01/29/20 16:00 Mechanical Ventilator 01/29/20 16:00 30 01/29/20 16:00 110/81 01/29/20 15:40 115 20 30 01/29/20 15:30 114 22 96/68 (77) 95 01/29/20 15:00 100/68 01/29/20 15:00 115 23 100/68 (79) 99 01/29/20 14:30 118 22 110/58 (75) 93 01/29/20 14:00 116 23 100/58 (72) 97 01/29/20 14:00 100/58 01/29/20 13:54 126 82/60 01/29/20 13:41 89/71 Intake and Output 01/29/20 01/30/20 19:00 07:00 Intake Total 2597.00 ml 2415.75 ml Output Total 0 ml 0 ml Balance 2597.00 ml 2415.75 ml IV Total 2597.00 ml 2415.75 ml Output Urine Total 0 ml 0 ml Laboratory Tests 01/30/20 04:00: White Blood Count 35.0*H, Red Blood Count 2.37L, Hemoglobin 6.9*L, Hematocrit 22.1L, Mean Corpuscular Volume 93, Mean Corpuscular Hemoglobin 29.3, Mean Corpuscular Hemoglobin Concent 31.4L, Red Cell Distribution Width 17.2H, Platelet Count 42#L, Mean Platelet Volume 10.9H, Neutrophils (%) (Auto) , Lymphocytes (%) (Auto) , Monocytes (%) (Auto) , Eosinophils (%) (Auto) , Basophils (%) (Auto) , Differential Total Cells Counted 100, Neutrophils % ( Manual) 88H, Lymphocytes % (Manual) 2L, Monocytes % (Manual) 2, Eosinophils % ( Manual) 0, Basophils % (Manual) 0, Band Neutrophils 8, Platelet Estimate DecreasedL, Platelet Morphology , Clumped Platelets 1+, Giant Platelets Occasional, Polychromasia 1+, Hypochromasia 1+, Anisocytosis 1+, Prothrombin Time 18.4H, Prothromb Time International Ratio 1.7H, Sodium Level 133L, Potassium Level 5.0, Chloride Level 92L, Carbon Dioxide Level 22, Anion Gap 19H , Blood Urea Nitrogen 151H, Creatinine 5.2H, Estimat Glomerular Filtration Rate 10.7, Glucose Level 88, Calcium Level 6.3L, Phosphorus Level 12.1H, Magnesium Level 1.9, Total Bilirubin 1.1H, Direct Bilirubin 0.7H, Aspartate Amino Transf ( AST/SGOT) 1374H, Alanine Aminotransferase (ALT/SGPT) 238H, Alkaline Phosphatase 154H, Total Protein 4.7L, Albumin 0.6L, Globulin 4.1, Albumin/Globulin Ratio 0.1L 01/30/20 08:12: Arterial Blood pH 7.235*L, Arterial Blood Partial Pressure CO2 43.9, Arterial Blood Partial Pressure O2 68.1L, Arterial Blood HCO3 18.2L, Arterial Blood Oxygen Saturation 89.0*L, Arterial Blood Base Excess -8.7L, Behzad Test Positive Height (Feet): 5 Height (Inches): 5.00 Weight (Pounds): 138 General Appearance: mild distress EENT: other Cardiovascular: tachycardia - Trach to vent Respiratory/Chest: decreased breath sounds Abdomen: distended Ronnie Guevara MD Jan 30, 2020 13:31
[2020-01-30] MEDS: Phenylephrine 100 MG in D5W 500ml 490 ML IV SCH ×2 (16:06→22:45)
--- NOTE | 2020-01-30 19:19 | Internal Med Progress Note ---
Subjective Date of Service: Jan 30, 2020 Physician Name Bunny Morocho Attending Physician Danis Wolfe MD Current Medications Medications (Trade) Dose Ordered Sig/Margarette Route PRN Reason Start Time Stop Time Status Last Admin Dose Admin Acetaminophen (Tylenol) 650 mg Q4H PRN GT Temp >100.5 01/28/20 21:30 02/27/20 21:29 Allopurinol (allopurinoL) 300 mg DAILY GT 01/27/20 09:00 02/26/20 08:59 01/30/20 08:33 Aluminum Hydroxide (Amphojel) 1,920 mg Q6H GT 01/29/20 10:00 02/28/20 09:59 01/30/20 17:08 Chlorhexidine Gluconate (Flaca-Hex 2%) 1 applic DAILY@2000 TOPIC 01/26/20 20:00 04/25/20 19:59 01/29/20 20:42 Daptomycin 400 mg/ Sodium Chloride 55 ml @ 100 mls/hr Q48H IV 01/25/20 12:00 02/01/20 11:59 01/29/20 11:58 Heparin Sodium (Porcine) (Heparin 5000 units/ml) 5,000 units EVERY 12 HOURS SUBQ 01/22/20 21:00 03/07/20 20:59 01/24/20 20:56 Meropenem 500 mg/ Sodium Chloride 55 ml @ 110 mls/hr Q12H IVPB 01/22/20 14:00 01/31/20 23:59 01/30/20 15:00 Micafungin Sodium 100 mg/Sodium Chloride 110 ml @ 110 mls/hr Q24H IVPB 01/30/20 12:00 02/06/20 11:59 01/30/20 11:59 Midodrine (Pro-Amatine) 10 mg Q8HR GT 01/24/20 14:00 04/23/20 13:59 01/30/20 15:00 Norepinephrine Bitartrate 16 mg/ Dextrose 500 ml @ 0 mls/hr Q24H IV 01/27/20 09:00 02/26/20 08:59 01/30/20 13:02 Ondansetron HCl (Zofran) 4 mg Q6H PRN IVP Nausea & Vomiting 01/22/20 08:15 02/21/20 08:14 Pantoprazole (Protonix) 40 mg Q12HR IV 01/22/20 09:30 02/21/20 09:29 01/30/20 08:34 Phenylephrine HCl 100 mg/Dextrose 500 ml @ 0 mls/hr Q24H IV 01/30/20 16:00 02/29/20 15:59 01/30/20 16:06 Polyethylene Glycol (Miralax) 17 gm DAILYPRN PRN ORAL Constipation 01/22/20 08:15 02/21/20 08:14 Sodium Bicarbonate 100 ml/Dextrose/ Sodium Chloride 1,100 ml @ 100 mls/hr Q11H IV 01/25/20 09:00 02/24/20 08:59 01/30/20 10:25 Sodium Citrate (Bicitra) 30 ml EVERY 6 HOURS GT 01/24/20 18:00 02/23/20 17:59 01/30/20 17:26 Allergies: Coded Allergies: NSAIDS (NON-STEROIDAL ANTI-INFLAMMA (Unverified Allergy, Unknown, 11/27/18) PIPERACILLIN (Unverified Allergy, Unknown, 01/25/19) tolerates carbapenem TAZOBACTAM (Unverified Allergy, Unknown, 11/27/18) Uncoded Allergies: NSAID (Allergy, Unknown, 09/14/18) ROS Limited/Unobtainable: Yes Subjective 84 YO M admitted with respiratory failure. Now pneumonia and hypotension. intubated and sedated. Cover for Int Yonis-DR Wolfe. ICU. Continues hypotensive on max pressors Objective Last Vital Signs Date Time Temp Pulse Resp B/P (MAP) Pulse Ox O2 Delivery O2 Flow Rate FiO2 01/30/20 19:00 94 17 66/45 (52) 01/30/20 18:31 98.9 91 01/30/20 16:00 30 01/30/20 16:00 Mechanical Ventilator 01/25/20 07:00 30.0 Laboratory Tests Test 01/30/20 04:00 01/30/20 08:12 White Blood Count 35.0 K/UL (4.8-10.8) *H Red Blood Count 2.37 M/UL (4.70-6.10) L Hemoglobin 6.9 G/DL (14.2-18.0) *L Hematocrit 22.1 % (42.0-52.0) L Mean Corpuscular Volume 93 FL (80-99) Mean Corpuscular Hemoglobin 29.3 PG (27.0-31.0) Mean Corpuscular Hemoglobin Concent 31.4 G/DL (32.0-36.0) L Red Cell Distribution Width 17.2 % (11.6-14.8) H Platelet Count 42 K/UL (150-450) #L Mean Platelet Volume 10.9 FL (6.5-10.1) H Neutrophils (%) (Auto) % (45.0-75.0) Lymphocytes (%) (Auto) % (20.0-45.0) Monocytes (%) (Auto) % (1.0-10.0) Eosinophils (%) (Auto) % (0.0-3.0) Basophils (%) (Auto) % (0.0-2.0) Differential Total Cells Counted 100 Neutrophils % (Manual) 88 % (45-75) H Lymphocytes % (Manual) 2 % (20-45) L Monocytes % (Manual) 2 % (1-10) Eosinophils % (Manual) 0 % (0-3) Basophils % (Manual) 0 % (0-2) Band Neutrophils 8 % (0-8) Platelet Estimate Decreased L Platelet Morphology Clumped Platelets 1+ Giant Platelets Occasional Polychromasia 1+ Hypochromasia 1+ Anisocytosis 1+ Prothrombin Time 18.4 SEC (9.30-11.50) H Prothromb Time International Ratio 1.7 (0.9-1.1) H Sodium Level 133 MMOL/L (136-145) L Potassium Level 5.0 MMOL/L (3.5-5.1) Chloride Level 92 MMOL/L (98-107) L Carbon Dioxide Level 22 MMOL/L (21-32) Anion Gap 19 mmol/L (5-15) H Blood Urea Nitrogen 151 mg/dL (7-18) H Creatinine 5.2 MG/DL (0.55-1.30) H Estimat Glomerular Filtration Rate 10.7 mL/min (>60) Glucose Level 88 MG/DL (74-106) Calcium Level 6.3 MG/DL (8.5-10.1) L Phosphorus Level 12.1 MG/DL (2.5-4.9) H Magnesium Level 1.9 MG/DL (1.8-2.4) Total Bilirubin 1.1 MG/DL (0.2-1.0) H Direct Bilirubin 0.7 MG/DL (0.0-0.3) H Aspartate Amino Transf (AST/SGOT) 1374 U/L (15-37) H Alanine Aminotransferase (ALT/SGPT) 238 U/L (12-78) H Alkaline Phosphatase 154 U/L (46-116) H Total Protein 4.7 G/DL (6.4-8.2) L Albumin 0.6 G/DL (3.4-5.0) L Globulin 4.1 g/dL Albumin/Globulin Ratio 0.1 (1.0-2.7) L Arterial Blood pH 7.235 (7.350-7.450) Arterial Blood Partial Pressure CO2 43.9 mmHg (35.0-45.0) Arterial Blood Partial Pressure O2 68.1 mmHg (75.0-100.0) L Arterial Blood HCO3 18.2 mmol/L (22.0-26.0) L Arterial Blood Oxygen Saturation 89.0 % (95-100) *L Arterial Blood Base Excess -8.7 (-2-2) L Bhezad Test Positive Microbiology Date/Time Source Procedure Growth Status 01/28/20 03:00 Body Fluid Gram Stain - Final Resulted 01/28/20 03:00 Body Fluid Culture - Preliminary Gram Negative Bacillus 1 Yeast Species Resulted Intake and Output 01/29/20 01/30/20 19:00 07:00 Intake Total 2597.00 ml 2415.75 ml Output Total 0 ml 0 ml Balance 2597.00 ml 2415.75 ml IV Total 2597.00 ml 2415.75 ml Output Urine Total 0 ml 0 ml Objective PHYSICAL EXAMINATION: GENERAL: The patient is contracted, thin-appearing male, in no apparent distress. HEENT: Eyes, pupils are equal and responsive to light and accommodation. Extraocular movements are intact. NECK: Supple without lymphadenopathy. There is trachea midline noted. There is no erythema about the trachea. CHEST: Mech vent; Decreased breath sounds at bilateral bases with expiratory wheezes, otherwise without rales. CARDIOVASCULAR EXAM: Tachycardic, regular rate. S1, S2 normal without murmurs, rubs, or gallops. ABDOMEN: Soft, nontender, and nondistended. Positive bowel sounds. No evidence of hepatosplenomegaly. Currently, no rebound or guarding noted. EXTREMITIES: Negative for clubbing, cyanosis, or edema. RECTAL/GENITAL: Not performed. NEUROLOGIC: Unable to assess. Assessment/Plan Assessment/Plan ASSESSMENT: This is an 84-year-old male. 1. Hypoxemic respiratory failure. 2. Pneumonia=proteus mirabilis 3. Dysphagia. 4. Functional quadriplegia. 5. Alzheimer's dementia. 6. Blxnr-uz-pmjzzmq renal failure. 7. Sepsis=citrobacter 8. Hyperkalemia TREATMENT: 1. Hypoxemic respiratory failure/pneumonia. A Pulmonary consultation has been obtained with Dr. Dennis Woodall. The patient is currently intubated in the intensive care unit. 2. Antibiotics= meropenem and Daptomycin. ID=Dr Dorantes. A rapid COVID-19 test was reported as negative. 2. History of dysphagia. The patient is status post PEG placement. 3. Functional quadriplegia. 4. Alzheimer's dementia. 5. Eazlu-fn-gevkogn renal failure/hyperkalemia A Nephrology consultation has been obtained with Dr. Ronnie Guevara. Continue kayexalate 6. Transfer to [facility] when medically stable 7. Prognosis is extremely guarded Bunny Morocho MD Jan 30, 2020 19:19
--- NOTE | 2020-01-30 19:39 | Cardiology Progress Note ---
Assessment/Plan Assessment/Plan 1. Septic shock. 2. citrobacter bacteremia 3. Respiratory failure, acute on chronic. 4. Pneumonia. 5. Chronic respiratory failure. 6. Atrial fibrillation, paroxysmal in nature. 7. Contracted extremities. 8. Decubitus ulcers. 9. Hypernatremia. 10. Renal failure. 11. thrombocytopenia 12. abn cardiac enzyme due to demand sinustachy short afib tele personally reviewed sinus amiod if had recurrent of afib prognosis is poor abx vent support now covid neg but remian in isolation per id recommendation pui prelim echo ef 55% no sig valvular dysfunction pressors added lisa to levophed max doses dnr d/wrn hgb dropped wbc sig higer Subjective ROS Limited/Unobtainable: Yes Objective Last 24 Hour Vital Signs Date Time Temp Pulse Resp B/P (MAP) Pulse Ox O2 Delivery O2 Flow Rate FiO2 01/30/20 19:08 76 16 30 01/30/20 19:00 94 17 66/45 (52) 01/30/20 18:31 98.9 96 17 70/44 (53) 91 01/30/20 18:02 98 17 64/35 (45) 89 01/30/20 17:46 99 16 65/48 (54) 95 01/30/20 17:30 99 16 65/48 (54) 01/30/20 17:00 100 15 66/48 (54) 01/30/20 16:30 100 17 72/55 (61) 75 01/30/20 16:06 103 70/49 01/30/20 16:00 30 01/30/20 16:00 75 01/30/20 16:00 103 17 70/49 (56) 01/30/20 16:00 Mechanical Ventilator 01/30/20 15:30 77 18 72/57 (62) 01/30/20 15:15 76 17 72/44 (53) 01/30/20 15:07 103 16 30 01/30/20 15:00 76 17 73/52 (59) 01/30/20 15:00 73/52 01/30/20 14:45 104 17 68/46 (53) 01/30/20 14:30 105 17 70/37 (48) 01/30/20 14:15 105 17 71/56 (61) 01/30/20 14:01 106 18 72/51 (58) 01/30/20 14:00 71/56 01/30/20 14:00 106 17 01/30/20 13:02 69/52 01/30/20 13:01 77 01/30/20 13:00 73/49 01/30/20 12:45 78 17 69/52 (58) 01/30/20 12:30 107 18 81/52 (62) 01/30/20 12:15 107 17 81/43 (56) 01/30/20 12:00 30 01/30/20 12:00 Mechanical Ventilator 01/30/20 12:00 78/46 01/30/20 12:00 98.8 79 16 78/46 (57) 01/30/20 12:00 107 01/30/20 11:11 107 17 30 01/30/20 11:00 89/50 01/30/20 11:00 80 18 89/50 (63) 01/30/20 10:00 79/47 01/30/20 09:45 109 18 81/57 (65) 01/30/20 09:30 86 19 75/59 (64) 01/30/20 09:15 85 19 80/55 (63) 01/30/20 09:00 76/51 01/30/20 09:00 85 20 76/51 (59) 01/30/20 08:45 85 20 56/17 (30) 01/30/20 08:30 85 20 69/22 (38) 01/30/20 08:15 86 19 87/56 (66) 01/30/20 08:00 85 21 85/48 (60) 92 01/30/20 08:00 76/49 01/30/20 08:00 109 01/30/20 08:00 Mechanical Ventilator 01/30/20 08:00 30 01/30/20 07:58 86 76/49 01/30/20 07:50 86 19 76/49 (58) 95 01/30/20 07:40 87 19 78/48 (58) 01/30/20 07:30 86 19 74/46 (55) 01/30/20 07:20 88 20 99/46 (63) 94 01/30/20 07:12 86 18 30 01/30/20 07:10 19 87/48 (61) 94 01/30/20 07:00 99.0 20 81/53 (62) 95 01/30/20 06:47 87/50 01/30/20 06:30 88 19 78/50 (59) 94 01/30/20 06:00 80/54 01/30/20 06:00 89 20 84/60 (68) 93 01/30/20 06:00 89 25 01/30/20 06:00 89 20 78/50 (59) 75 01/30/20 05:30 89 20 87/50 (62) 75 01/30/20 05:00 92 19 90/48 (62) 94 01/30/20 05:00 90/55 01/30/20 05:00 92 19 90/48 (62) 94 01/30/20 04:30 93 20 86/52 (63) 94 01/30/20 04:30 93 20 86/52 (63) 94 01/30/20 04:00 99.2 92 20 83/52 (62) 93 01/30/20 04:00 98.4 92 20 83/52 (62) 93 01/30/20 04:00 30 01/30/20 04:00 96 01/30/20 04:00 86/49 01/30/20 04:00 Mechanical Ventilator 01/30/20 03:30 96 21 88/49 (62) 96 01/30/20 03:30 96 21 88/49 (62) 96 01/30/20 03:16 94 86/49 01/30/20 03:16 98 19 30 01/30/20 03:10 99 20 86/49 (61) 94 01/30/20 03:00 101 19 91/48 (62) 94 01/30/20 03:00 89/52 01/30/20 03:00 101 19 91/48 (62) 94 01/30/20 02:30 104 19 99/51 (67) 96 01/30/20 02:26 89/45 01/30/20 02:15 98 20 91/60 (70) 95 01/30/20 02:00 95 19 89/56 (67) 93 01/30/20 02:00 91/48 01/30/20 01:45 103 19 86/51 (63) 01/30/20 01:30 108 20 92/51 (65) 95 01/30/20 01:15 110 20 86/50 (62) 94 01/30/20 01:00 106 20 93/49 (64) 94 01/30/20 01:00 88/46 01/30/20 00:45 107 22 84/80 (81) 94 01/30/20 00:30 107 21 90/51 (64) 93 01/30/20 00:15 106 21 92/56 (68) 94 01/30/20 00:00 98.8 102 21 88/54 (65) 93 01/30/20 00:00 Mechanical Ventilator 01/30/20 00:00 91/57 01/29/20 23:45 107 21 80/45 (57) 94 01/29/20 23:30 106 21 88/46 (60) 94 01/29/20 23:25 99 20 30 01/29/20 23:15 111 21 89/50 (63) 94 01/29/20 23:00 105 20 85/49 (61) 94 01/29/20 23:00 85/61 01/29/20 22:54 113 80/65 01/29/20 22:45 105 21 80/46 (57) 94 01/29/20 22:30 107 21 84/50 (61) 94 01/29/20 22:21 82/56 01/29/20 22:15 107 20 88/45 (59) 94 01/29/20 22:00 104 20 90/45 (60) 95 01/29/20 22:00 80/51 01/29/20 21:45 107 20 87/45 (59) 95 01/29/20 21:30 105 20 78/46 (57) 94 01/29/20 21:15 95 34 58/41 (47) 94 01/29/20 21:00 109 21 85/65 (72) 94 01/29/20 21:00 84/64 01/29/20 20:45 108 24 94/54 (67) 93 01/29/20 20:30 109 21 95/64 (74) 95 01/29/20 20:15 110 21 84/50 (61) 92 01/29/20 20:00 Mechanical Ventilator 01/29/20 20:00 109 01/29/20 20:00 30 01/29/20 20:00 60/30 01/29/20 20:00 97.8 108 22 94/59 (71) 92 01/29/20 19:48 106 18 30 01/29/20 19:45 110 22 85/54 (64) 95 General Appearance: no apparent distress, on vent, patient on isolation, isolation precautions Extremities: other Intake and Output 01/29/20 01/30/20 19:00 07:00 Intake Total 2597.00 ml 2415.75 ml Output Total 0 ml 0 ml Balance 2597.00 ml 2415.75 ml IV Total 2597.00 ml 2415.75 ml Output Urine Total 0 ml 0 ml Laboratory Tests Test 01/30/20 04:00 01/30/20 08:12 White Blood Count 35.0 K/UL (4.8-10.8) *H Red Blood Count 2.37 M/UL (4.70-6.10) L Hemoglobin 6.9 G/DL (14.2-18.0) *L Hematocrit 22.1 % (42.0-52.0) L Mean Corpuscular Volume 93 FL (80-99) Mean Corpuscular Hemoglobin 29.3 PG (27.0-31.0) Mean Corpuscular Hemoglobin Concent 31.4 G/DL (32.0-36.0) L Red Cell Distribution Width 17.2 % (11.6-14.8) H Platelet Count 42 K/UL (150-450) #L Mean Platelet Volume 10.9 FL (6.5-10.1) H Neutrophils (%) (Auto) % (45.0-75.0) Lymphocytes (%) (Auto) % (20.0-45.0) Monocytes (%) (Auto) % (1.0-10.0) Eosinophils (%) (Auto) % (0.0-3.0) Basophils (%) (Auto) % (0.0-2.0) Differential Total Cells Counted 100 Neutrophils % (Manual) 88 % (45-75) H Lymphocytes % (Manual) 2 % (20-45) L Monocytes % (Manual) 2 % (1-10) Eosinophils % (Manual) 0 % (0-3) Basophils % (Manual) 0 % (0-2) Band Neutrophils 8 % (0-8) Platelet Estimate Decreased L Platelet Morphology Clumped Platelets 1+ Giant Platelets Occasional Polychromasia 1+ Hypochromasia 1+ Anisocytosis 1+ Prothrombin Time 18.4 SEC (9.30-11.50) H Prothromb Time International Ratio 1.7 (0.9-1.1) H Sodium Level 133 MMOL/L (136-145) L Potassium Level 5.0 MMOL/L (3.5-5.1) Chloride Level 92 MMOL/L (98-107) L Carbon Dioxide Level 22 MMOL/L (21-32) Anion Gap 19 mmol/L (5-15) H Blood Urea Nitrogen 151 mg/dL (7-18) H Creatinine 5.2 MG/DL (0.55-1.30) H Estimat Glomerular Filtration Rate 10.7 mL/min (>60) Glucose Level 88 MG/DL (74-106) Calcium Level 6.3 MG/DL (8.5-10.1) L Phosphorus Level 12.1 MG/DL (2.5-4.9) H Magnesium Level 1.9 MG/DL (1.8-2.4) Total Bilirubin 1.1 MG/DL (0.2-1.0) H Direct Bilirubin 0.7 MG/DL (0.0-0.3) H Aspartate Amino Transf (AST/SGOT) 1374 U/L (15-37) H Alanine Aminotransferase (ALT/SGPT) 238 U/L (12-78) H Alkaline Phosphatase 154 U/L (46-116) H Total Protein 4.7 G/DL (6.4-8.2) L Albumin 0.6 G/DL (3.4-5.0) L Globulin 4.1 g/dL Albumin/Globulin Ratio 0.1 (1.0-2.7) L Arterial Blood pH 7.235 (7.350-7.450) Arterial Blood Partial Pressure CO2 43.9 mmHg (35.0-45.0) Arterial Blood Partial Pressure O2 68.1 mmHg (75.0-100.0) L Arterial Blood HCO3 18.2 mmol/L (22.0-26.0) L Arterial Blood Oxygen Saturation 89.0 % (95-100) *L Arterial Blood Base Excess -8.7 (-2-2) L Behzad Test Positive Microbiology Date/Time Source Procedure Growth Status 01/28/20 03:00 Body Fluid Gram Stain - Final Resulted 01/28/20 03:00 Body Fluid Culture - Preliminary Gram Negative Bacillus 1 Yeast Species Resulted Objective per dr fallon Lungs: rales, rhonchi Heart: HR/BP stable Abdomen: soft Extremities: no C/C/E Kenji Shane MD Jan 30, 2020 19:39
[2020-01-30] MEDS: Dyna-Hex 2% Top Sol 2oz TOPIC SCH (20:51)
[2020-01-31] VITALS (9 sets, daily range): BP systolic 58–95; BP diastolic 31–62
[2020-01-31] MEDS: Sodium Citrate 30ml GT SCH (00:22)
[2020-01-31] MEDS: Meropenem 500 MG in NS 55 ML IVPB SCH (01:14)
--- NOTE | 2020-01-31 03:11 | Emergency Room Report ---
History of Present Illness General Chief Complaint: Dyspnea/Respdistress Source: Medical Record, PMD Present Illness Allergies: Coded Allergies: NSAIDS (NON-STEROIDAL ANTI-INFLAMMA (Unverified Allergy, Unknown, 11/27/18) PIPERACILLIN (Unverified Allergy, Unknown, 01/25/19) tolerates carbapenem TAZOBACTAM (Unverified Allergy, Unknown, 11/27/18) Uncoded Allergies: NSAID (Allergy, Unknown, 09/14/18) COVID-19 Screening Contact w/high risk pt: No Experienced COVID-19 symptoms?: Yes COVID-19 Testing performed [employer]: No COVID-19 Screening: Negative COVID-19 Nursing Documentation-PMH Past Medical History: No History, Except For Hx Cardiac Problems: Yes Hx Cancer: No Hx Gastrointestinal Problems: Yes Hx Neurological Problems: Yes Hx Dysphasia: Yes Hx Fatigue: Yes Physical Exam Vital Signs Date Time Temp Pulse Resp B/P (MAP) Pulse Ox O2 Delivery O2 Flow Rate FiO2 01/27/20 07:00 126 25 97/51 (66) 97 01/27/20 07:24 40 01/27/20 08:00 99.8 01/27/20 08:00 Mechanical Ventilator Medical Decision Making Diagnostic Impression: Primary Impression: Acute on chronic respiratory failure Additional Impressions: Urinary tract infection Ventilator dependent Bilateral pleural effusion Dehydration ER Course I was called to the ICU to pronounce this patient. Patient on ventilator. Patient made DNR. No rhythm on monitor. no palpable pulse. Time of 2:18am Last Vital Signs Date Time Temp Pulse Resp B/P (MAP) Pulse Ox O2 Delivery O2 Flow Rate FiO2 01/31/20 02:00 61/31 01/31/20 01:30 83 16 01/31/20 00:45 90 01/31/20 00:00 Mechanical Ventilator 01/31/20 00:00 98.8 01/31/20 00:00 100 Status: worsened Disposition: Condition: Referrals: [facility] (PCP) Hamilton Gomez MD Jan 31, 2020 03:11
== END 2020-01-31 02:18 | disposition expired | DRG 870 ==
LOC: EDBD 03:19 → EMR 03:35 → EDBEDREQSVC 05:26 → EDBEDREQ 05:26 → ICU 05:28 → EDBEDREQ 05:42
PROC: 05H533Z Insertion of Infusion Device into Right Subclavian Vein, Percutaneous Approach (ICD-10-PCS; principal; 2020-01-22)
PROC: 5A1955Z Respiratory Ventilation, Greater than 96 Consecutive Hours (ICD-10-PCS; principal; 2020-01-22)
DX: A41.59 Other Gram-negative sepsis (principal); R65.21 Severe sepsis with septic shock; L89.224 Pressure ulcer of left hip, stage 4; L89.523 Pressure ulcer of left ankle, stage 3; L89.513 Pressure ulcer of right ankle, stage 3; L89.624 Pressure ulcer of left heel, stage 4; R53.2 Functional quadriplegia; N17.0 Acute kidney failure with tubular necrosis; E43 Unspecified severe protein-calorie malnutrition; J96.21 Acute and chronic respiratory failure with hypoxia; J15.6 Pneumonia due to other Gram-negative bacteria; E87.0 Hyperosmolality and hypernatremia; N39.0 Urinary tract infection, site not specified; J44.0 Chronic obstructive pulmonary disease with (acute) lower respiratory infection; J90 Pleural effusion, not elsewhere classified; G30.9 Alzheimer's disease, unspecified; F02.80 Dementia in other diseases classified elsewhere, unspecified severity, without behavioral disturbance, psychotic disturbance, mood disturbance, and anxiety; Z68.23 Body mass index [BMI] 23.0-23.9, adult; Z93.0 Tracheostomy status; Z93.1 Gastrostomy status; E86.0 Dehydration; N18.9 Chronic kidney disease, unspecified; E87.5 Hyperkalemia; D64.9 Anemia, unspecified; I25.10 Atherosclerotic heart disease of native coronary artery without angina pectoris; I25.2 Old myocardial infarction; I48.91 Unspecified atrial fibrillation; D69.6 Thrombocytopenia, unspecified; Z66 Do not resuscitate
CPT/HCPCS: 36415; 36600; 71045; 74018; 76770; 80053; 80150; 80162; 80202; 81001; 81003; 82043; 82150; 82248; 82550; 82553; 82607; 82728; 82746; 82803; 82962; 82977; 83540; 83550; 83605; 83615; 83690; 83735; 83880; 83935; 84100; 84300; 84484; 84550; 85007; 85025; 85044; 85379; 85610; 85651; 85730; 86140; 86850; 86900; 86901; 86920; 87040; 87070; 87081; 87086; 87181; 87205; 89050; 93005; 93306; 94002; 94003; 94664; 96361; 96365; 96367; 96368; 96375; 99291; C9399; J2370; J3430; J7030; U0002